=== PATIENT | female | born 1990 | race Caucasian/White ===

== ENCOUNTER 2022-12-27 20:35 | Outpatient (REF) | payer MEDICARE, MEDICAID, SELFPAY ==
[2023-01-03 21:07] LABS: Age Gdln ACOG Testing Note (.); HPV Aptima Positive (Negative); HPV Genotype 16 Negative (Negative); HPV Genotype 18,45 Negative (Negative); IGP, Aptima HPV, rfx 16/18,45 Note (.)
== END 2022-12-27 20:36 | disposition home or self-care (01) ==
LOC: LAB 20:35
PROVIDERS: PCP Family Medicine; Visit Provider Obstetrics & Gynecology
DX: Z01.419 Encounter for gynecological examination (general) (routine) without abnormal findings (principal)
CPT/HCPCS: 87624; G0145

== ENCOUNTER 2023-01-01 10:45 | Outpatient (RCR) | payer MEDICARE, MEDICAID, SELFPAY | END 2023-02-17 15:46 | disposition home or self-care (01) | LOC: PT 10:45 | PROVIDERS: PCP Family Medicine; Visit Provider Family Medicine | DX: M54.50 Low back pain, unspecified (principal); R26.81 Unsteadiness on feet | CPT/HCPCS: 97110; 97112; 97140; 97163; 97530 ==

== ENCOUNTER 2023-01-08 10:42 | Outpatient (RCR) | payer MEDICARE, MEDICAID, SELFPAY | END 2023-02-16 15:45 | disposition home or self-care (01) | LOC: PT 10:42 | PROVIDERS: PCP Family Medicine; Visit Provider Psychiatry & Neurology Neurology | DX: R42 Dizziness and giddiness (principal); M47.812 Spondylosis without myelopathy or radiculopathy, cervical region | CPT/HCPCS: 95992; 97110; 97112; 97140; 97163 ==

== ENCOUNTER 2023-12-21 10:34 | Outpatient (OUT) | payer MEDICARE, MEDICAID, SELFPAY ==
--- NOTE | 2023-12-21 10:37 | US_ITS ---
[address] [address] Patient Name: ELIE PENNINGTON MRN: [id number] date: 1990 Sex: F Assigned Patient Location: US Current Patient Location: US Accession/Order Number: [id number] Exam Date: 12/21/2023 10:40 Report Date: 12/21/2023 15:46 At the request of: GEOFFREY COTTO Procedure: US pelvis w/ transvaginal EXAMINATION: US pelvis w/ transvaginal HISTORY: Menorrhagia With Regular Cycle COMPARISON: No relevant comparison available. TECHNIQUE: Transabdominal and/or transvaginal sonographic examination was performed as indicated by examination type. FINDINGS: UTERUS: Normal size and appearance. Uterus size: 9.4 x 4.7 x 6 x 3 cm ENDOMETRIUM: Normal homogeneous appearance. Endometrial thickness: 10 mm RIGHT OVARY: Contains numerous small, similar size follicles located in a peripheral distribution. Duplex Doppler demonstrates normal waveform and flow; resistive index 0.4. Ovary size: 3.2 x 2.2 x 2.7 cm LEFT OVARY: Contains numerous small, similar size follicles located in a peripheral distribution. Duplex Doppler demonstrates normal waveform and flow; resistive index 0.4. Ovary size: 3.4 x 2.7 x 2.9 cm CUL-DE-SAC: Unremarkable. No significant free fluid. BLADDER: Unremarkable. OTHER: None. US/US pelvis w/ transvaginal IMPRESSION: 1. Unremarkable uterus and endometrium. 2. Numerous follicles within both ovaries; nonspecific but the appearance can be seen with polycystic ovarian syndrome. Electronically authenticated by: DONNA KUMAR Date: 12/21/2023 15:46
== END 2023-12-21 10:35 | disposition home or self-care (01) ==
LOC: US 10:34
PROVIDERS: PCP Family Medicine; Visit Provider Obstetrics & Gynecology
DX: N92.0 Excessive and frequent menstruation with regular cycle (principal)
CPT/HCPCS: 76830; 76856

== ENCOUNTER 2024-01-01 19:59 | Outpatient (REF) | payer MEDICARE, MEDICAID, SELFPAY ==
--- OUTSIDE RECORDS SUMMARY | 2024-01-01 20:04 | XMS_ITS | CCD ---
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 [address] ABSOLUTE NEUTROPHIL 4.2 X10E9/L Normal 1.5-6.6 [facility] Comment on above: Performed By: #### Danis SAMUELS, 1797-12, BMP, 3040-3, LIVR #### [facility] ([id number]) [address], [facility] [address] [place] [address] Basophils/100 WBC (Bld) 0.6 % Normal [facility] Comment on above: Performed By: #### Danis SAMUELS, 1797-12, BMP, 3040-3, LIVR #### [facility] ([id number]) [address], [address] [place] [address] Eosinophils (Bld) [#/Vol] 0.1 10*3/uL Normal 0.0-0.4 [facility] Comment on above: Performed By: #### Danis SAMUELS, 1797-12, BMP, 3040-3, LIVR #### [facility] ([id number]) [address], [facility] [address] [place] [address] Eosinophils/100 WBC (Bld) 2.0 % Normal [facility] Comment on above: Performed By: #### Danis SAMUELS, 1797-12, BMP, 3040-3, LIVR #### [facility] ([id number]) [address], [facility] [address] [place] [address] Erythrocyte distribution width (RBC) [Ratio] 12.1 % Normal 11.5-15.0 [facility] Comment on above: Performed By: #### Danis SAMUELS, 1797-12, BMP, 3040-3, LIVR #### [facility] ([id number]) [address], [address] [place] [address] Hematocrit (Bld) [Volume fraction] 39.5 % Normal 35-47 [facility] Comment on above: Performed By: #### Danis SAMUELS, 1797-12, BMP, 3040-3, LIVR #### [facility] ([id number]) [address], [address] [place] [address] Hemoglobin (Bld) [Mass/Vol] 13.7 g/dL Normal 11.7-15.5 [facility] Comment on above: Performed By: #### Danis SAMUELS, 1797-12, BMP, 3040-3, LIVR #### [facility] ([id number]) [address], [address] [place] [address] Lymphocytes (Bld) [#/Vol] 2.6 10*3/uL Normal 1.0-3.5 [facility] Comment on above: Performed By: #### Danis SAMUELS, 1797-12, BMP, 0-3, LIVR #### [facility] ([id number]) [address], [facility] [address] [place] [address] Lymphocytes/100 WBC (Bld) 35.6 % Normal [facility] Comment on above: Performed By: #### Danis SAMUELS, 1797-12, BMP, 3040-3, LIVR #### [facility] ([id number]) [address], [address] [place] [address] MCH (RBC) [Entitic mass] 29.7 pg Normal 27-34 [facility] Comment on above: Performed By: #### Danis SAMUELS, 1797-12, BMP, 3040-3, LIVR #### [facility] ([id number]) [address], [address] [place] [address] MCHC (RBC) [Mass/Vol] 34.7 g/dL Normal 32-36 [facility] Comment on above: Performed By: #### Danis SAMUELS, 1797-12, BMP, 3040-3, LIVR #### [facility] ([id number]) [address], [address] [place] [address] MCV (RBC) [Entitic vol] 86 fL Normal 80-100 [facility] Comment on above: Performed By: #### Danis SAMUELS, 1797-12, BMP, 3040-3, LIVR #### [facility] ([id number]) [address], [address] [place] [address] Monocytes (Bld) [#/Vol] 0.3 10*3/uL Normal 0-0.9 [facility] Comment on above: Performed By: #### Danis SAMUELS, 1797-12, BMP, 3040-3, LIVR #### [facility] ([id number]) [address], [address] [place] [address] Monocytes/100 WBC (Bld) 4.4 % Normal [facility] Comment on above: Performed By: #### Danis SAMUELS, 1797-12, BMP, 3040-3, LIVR #### [facility] ([id number]) [address], [address] [place] [address] Neutrophils/100 WBC (Bld) 57.4 % Normal [facility] Comment on above: Performed By: #### Danis SAMUELS, 1797-12, BMP, 3040-3, LIVR #### [facility] ([id number]) [address], [address] [place] [address] Platelet mean volume (Bld) [Entitic vol] 8.0 fL Normal 7-12 [facility] Comment on above: Performed By: #### Danis SAMUELS, 1797-12, BMP, 3040-3, LIVR #### [facility] ([id number]) [address], [address] [place] [address] Platelets (Bld) [#/Vol] 306 10*3/uL Normal 150-450 [facility] Comment on above: Performed By: #### Danis SAMUELS, 1797-12, BMP, 3040-3, LIVR #### [facility] ([id number]) [address], [address] [place] [address] RBC COUNT 4.62 X10E12/L Normal 3.80-5.20 [facility] Comment on above: Performed By: #### Danis BCA, 1797-12, BMP, 3040-3, LIVR #### [facility] ([id number]) [address], [address] [place] [address] WBC (Bld) [#/Vol] 7.3 10*3/uL Normal 4.0-11.0 [facility] Comment on above: Performed By: #### Danis SAMUELS, 1797-12, BMP, 3040-3, LIVR #### [facility] ([id number]) [address], [address] [place] [address] FREE T4on 12-19-2023 Free T4 [Mass/Vol] 1.14 ng/dL Normal 0.61-1.60 [facility] Comment on above: Performed By: #### Danis BCA, 1797-12, BMP, 3040-3, LIVR #### [facility] ([id number]) [address], [address] [place] [address] HCG.beta subunit IA 3rd IS Q non 12-19-2023 SERUM B HCG,3RD I.S. <5 Normal [facility] Comment on above: Result Comment: NEW REFERENCE RANGE WEEKS (SINCE LMP) MIU/mL 3 WEEKS 5 - 50 4 WEEKS 5 - 426 5 WEEKS 18 - 7,340 6 WEEKS 1,080 - 56,500 7-8 WEEKS 7,650 - 229,000 9-12 WEEKS 25,700 - 288,000 13-16 WEEKS 13,300 - 254,000 17-24 WEEKS 4,060 - 165,400 25-40 WEEKS 3,640 - 117,000 MALES AND NON- FEMALES - <5 MIU/mL This test has been FDA approved for use in only. Elevated levels are not necessarily diagnostic for trophoblastic or nontrophoblastic neoplasms. Performed By: #### C ABRIL, 1797-12, NISA, 3040-3, LIVR #### [facility] ([id number]) [address], [facility] [address] [place] [address] HGB A1C (GLYCO-HGB)on 2023 Glucose [Mass/Vol] 154 mg/dL Normal [facility] Comment on above: Performed By: ###Nikita Moscoso BCA, 1797-12, NISA, 0-3, LIVR #### [facility] ([id number]) [address] [address] [place] [address] HbA1c (Bld) [Mass fraction] 7.0 % High 4.4-5.6 [facility] Comment on above: Result Comment: NOTE ADA Guidelines Result HgbA1c Normal : less than 5.7 % Prediabetes : 5.7 % to 6.4 % Diabetes : > 6.4 % Use with caution in patients with abnormal hemoglobin variants as the half-life of red blood cells and in vivo glycation rates are affected. Performed By: #### C ABRIL, 1797-12, NISA, 0-3, LIVR #### [facility] ([id number]) [address], [address] [place] [address] PROTIME AND INRon 12-19-2023 INR Coag (PPP) [Relative time] 1.1 {INR} Normal 0.8-1.1 [facility] Comment on above: Performed By: #### Danis SAMUELS, 1797-12, NISA, 3040-3, LIVR #### [facility] ([id number]) [address], [address] [place] [address] PT Coag (PPP) [Time] 12.5 s Normal 9.8-13.2 [facility] Comment on above: Result Comment: NEW REFERENCE RANGE Performed By: #### Danis SAMUELS, 8-8, BMP, 3040-3, LIVR #### [facility] ([id number]) [address], [address] [place] [address] TSH Qnon 12-19-2023 TSH 1.08 uIU/mL Normal 0.49-4.67 [facility] Comment on above: Performed By: #### Danis SAMUELS, 1797-8, BMP, 3040-3, LIVR #### [facility] ([id number]) [address], [address] [place] [address] aPTT Coag (PPP) [Time]on aPTT Coag (Bld) [Time] 36 s Normal 26-37 [facility] Comment on above: Result Comment: NEW REFERENCE RANGE Performed By: #### Danis SAMUELS, 1797-8, BMP, 3040-3, LIVR #### [facility] ([id number]) [address], [address] [place] [address] HCG.beta subunit IA 3rd IS Q non 12-03-2023 SERUM B HCG,3RD I.S. <5 Normal [facility] Comment on above: Result Comment: NEW REFERENCE RANGE WEEKS (SINCE LMP) MIU/mL 3 WEEKS 5 - 50 4 WEEKS 5 - 426 5 WEEKS 18 - 7,340 6 WEEKS 1,080 - 56,500 7-8 WEEKS 7,650 - 229,000 9-12 WEEKS 25,700 - 288,000 13-16 WEEKS 13,300 - 254,000 17-24 WEEKS 4,060 - 165,400 25-40 WEEKS 3,640 - 117,000 MALES AND NON- FEMALES - <5 MIU/mL This test has been FDA approved for use in only. Elevated levels are not necessarily diagnostic for trophoblastic or nontrophoblastic neoplasms. Performed By: #### C BCA, 1798-8, BMP, 3040-3, LIVR #### [facility] ([id number]) [address], [address] [place] [address] PT - Assessmentson 4 PT - Assessments [id number] 031 [id number]#1.00T IFF Normal [facility] PT - Assessments [id number] 031 [id number]#1.00T IFF Normal [facility] Nonvisit Note - PTon 10-22-2 024 Nonvisit Note - PT 1100 Edilson Dunn just called and rescheduled to next . She said her ride canceled on her last minute today. Normal [facility] CBC AND AUTO DIFFon 10-19-19 24 ABSOLUTE BASOPHIL 0.1 X10E9/L Normal 0.0-0.2 [facility] Comment on above: Performed By: #### C BCA, CMP, 69092-2, THYR #### [facility] ([id number]) [address], [address] [place] [address] ABSOLUTE NEUTROPHIL 4.7 X10E9/L Normal 1.5-6.6 [facility] Comment on above: Performed By: #### C BCA, CMP, 30282-0, THYR #### [facility] ([id number]) [address], [address] [place] [address] Basophils/100 WBC (Bld) 0.8 % Normal [facility] Comment on above: Performed By: #### C BCA, CMP, 12729-7, THYR #### [facility] ([id number]) [address], [address] [place] [address] Eosinophils (Bld) [#/Vol] 0.2 10*3/uL Normal 0.0-0.4 [facility] Comment on above: Performed By: #### C KURTIS SAMUELS, 48314-2, THYR #### [facility] ([id number]) [address], [address] [place] [address] Eosinophils/100 WBC (Bld) 2.2 % Normal [facility] Comment on above: Performed By: #### C KURTIS SAMUELS, 57226-9, THYR #### [facility] ([id number]) [address], [facility] [address] [place] [address] Erythrocyte distribution width (RBC) [Ratio] 12.4 % Normal 11.5-15.0 [facility] Comment on above: Performed By: #### Danis SAMUELS CMP, 17722-1, THYR #### [facility] ([id number]) [address], [address] [place] [address] Hematocrit (Bld) [Volume fraction] 36.6 % Normal 35-47 [facility] Comment on above: Performed By: #### Danis SAMUELS CMP, 53441-9, THYR #### [facility] ([id number]) [address], [address] [place] [address] Hemoglobin (Bld) [Mass/Vol] 12.6 g/dL Normal 11.7-15.5 [facility] Comment on above: Performed By: #### Danis SAMUELS CMP, 08521-6, THYR #### [facility] ([id number]) [address], [address] [place] [address] Lymphocytes (Bld) [#/Vol] 2.7 10*3/uL Normal 1.0-3.5 [facility] Comment on above: Performed By: #### Danis SAMUELS CMP, 96354-6, THYR #### [facility] ([id number]) [address], [address] [place] [address] Lymphocytes/100 WBC (Bld) 33.4 % Normal [facility] Comment on above: Performed By: #### C KURTIS SAMUELS, 23344-1, THYR #### [facility] ([id number]) [address], [facility] [address] [place] [address] MCH (RBC) [Entitic mass] 29.3 pg Normal 27-34 [facility] Comment on above: Performed By: #### C ABRIL CMP, 84932-6, THYR #### [facility] ([id number]) [address], [facility] [address] [place] [address] MCHC (RBC) [Mass/Vol] 34.3 g/dL Normal 32-36 [facility] Comment on above: Performed By: #### C ABRIL CMP, 36482-6, THYR #### [facility] ([id number]) [address], [facility] [address] [place] [address] MCV (RBC) [Entitic vol] 85 fL Normal 80-100 [facility] Comment on above: Performed By: #### Danis SAMUELS CMP, 17810-8, THYR #### [facility] ([id number]) [address], [address] [place] [address] Monocytes (Bld) [#/Vol] 0.5 10*3/uL Normal 0-0.9 [facility] Comment on above: Performed By: #### Danis SAMUELS CMP, 32700-6, THYR #### [facility] ([id number]) [address], [facility] [address] [place] [address] Monocytes/100 WBC (Bld) 5.7 % Normal [facility] Comment on above: Performed By: #### Danis BCA, CMP, 89162-5, THYR #### [facility] ([id number]) [address], [address] [place] [address] Neutrophils/100 WBC (Bld) 57.9 % Normal [facility] Comment on above: Performed By: #### C BCA, CMP, 13925-1, THYR #### [facility] ([id number]) [address], [address] [place] [address] Platelet mean volume (Bld) [Entitic vol] 8.1 fL Normal 7-12 [facility] Comment on above: Performed By: #### C BCA, CMP, 67456-8, THYR #### [facility] ([id number]) [address], [address] [place] [address] Platelets (Bld) [#/Vol] 338 10*3/uL Normal 150-450 [facility] Comment on above: Performed By: #### C BCA, CMP, 34827-0, THYR #### [facility] ([id number]) [address], [address] [place] [address] RBC COUNT 4.30 X10E12/L Normal 3.80-5.20 [facility] Comment on above: Performed By: #### C BCA, CMP, 32791-5, THYR #### [facility] ([id number]) [address] [address] [place] [address] WBC (Bld) [#/Vol] 8.0 10*3/uL Normal 4.0-11.0 [facility] Comment on above: Performed By: #### C BCA, CMP, 81106-5, THYR #### [facility] ([id number]) [address], [address] [place] [address] COMPREHENSIVE METABOLIC PANE Nickolas 10-19-2023 Albumin [Mass/Vol] 4.2 g/dL Normal 3.2-5.3 [facility] Comment on above: Performed By: #### C BCA, CMP, 68422-4, THYR #### [facility] ([id number]) [address], [address] [place] [address] ALP [Catalytic activity/Vol] 41 U/L Normal 39-130 [facility] Comment on above: Performed By: #### C ABRIL CMP, 42218-6, THYR #### [facility] ([id number]) [address], [address] [place] [address] ALT [Catalytic activity/Vol] 18 U/L Normal 0-31 [facility] Comment on above: Performed By: #### C ABRIL, CMP, 06102-5, THYR #### [facility] ([id number]) [address], [address] [place] [address] Anion gap [Moles/Vol] 10 mmol/L Normal 5-15 [facility] Comment on above: Performed By: #### C ABRIL, CMP, 14314-0, THYR #### [facility] ([id number]) [address], [address] [place] [address] AST [Catalytic activity/Vol] 15 U/L Normal 0-41 [facility] Comment on above: Performed By: #### C ABRIL, CMP, 01165-4, THYR #### [facility] ([id number]) [address], [address] [place] [address] Bilirubin [Mass/Vol] 0.4 mg/dL Normal 0.3-1.2 [facility] Comment on above: Performed By: #### C BCA, CMP, 10728-7, THYR #### [facility] ([id number]) [address], [address] [place] [address] Calcium [Mass/Vol] 9.1 mg/dL Normal 8.5-10.5 [facility] Comment on above: Performed By: #### C BCA, CMP, 84666-8, THYR #### [facility] ([id number]) [address], [address] [place] [address] Chloride [Moles/Vol] 103 mmol/L Normal 98-109 [facility] Comment on above: Performed By: #### C KURTIS SAMUELS, 31046-4, THYR #### [facility] ([id number]) [address], [address] [place] [address] CO2 [Moles/Vol] 25 mmol/L Normal 22-32 [facility] Comment on above: Performed By: #### C ABRIL CMP, 94829-0, THYR #### [facility] ([id number]) [address], [address] [place] [address] Creatinine [Mass/Vol] 0.79 mg/dL Normal 0.40-1.00 [facility] Comment on above: Result Comment: METH OD TRACEABLE TO IDMS STANDARD Performed By: #### C KURTIS SAMUELS, 61738-2, THYR #### [facility] ([id number]) [address], [address] [place] [address] eGFR (CKD-EPI) NON-RACE DEPENDENT >90 Normal >59 [facility] Comment on above: Result Comment: Reported eGFR is based on the CKD-EPI 2020 equation that does not use a race coefficient. Performed By: #### C KURTIS SAMUELS, 84815-0, THYR #### [facility] ([id number]) [address], [address] [place] [address] Glucose [Mass/Vol] 193 mg/dL High 65-99 [facility] Comment on above: Performed By: #### C BCA, CMP, 44160-5, THYR #### [facility] ([id number]) [address], [address] [place] [address] Potassium [Moles/Vol] 3.7 mmol/L Normal 3.5-5.0 [facility] Comment on above: Performed By: #### C BCA, CMP, 24047-1, THYR #### [facility] ([id number]) [address], [address] [place] [address] Protein [Mass/Vol] 6.8 g/dL Normal 6.0-8.0 [facility] Comment on above: Performed By: #### C KURTIS SAMUELS, 71533-3, THYR #### [facility] ([id number]) [address], [facility] [address] [place] [address] Sodium [Moles/Vol] 138 mmol/L Normal 134-146 [facility] Comment on above: Performed By: #### C ABRIL, KURTIS, 35695-0, THYR #### [facility] ([id number]) [address], [facility] [address] [place] [address] Urea nitrogen [Mass/Vol] 11 mg/dL Normal 5-23 [facility] Comment on above: Performed By: #### Danis SAMUELS CMP, 55524-7, THYR #### [facility] ([id number]) [address], [address] [address] Lipid 1996 panelon 4 Cholesterol [Mass/Vol] 224 mg/dL High 150-200 [facility] Comment on above: Performed By: #### Danis SAMUELS, KURTIS, 34562-8, THYR #### [facility] ([id number]) [address], [facility] [address] [place] [address] Cholesterol in HDL [Mass/Vol] 44 mg/dL Normal >39 [facility] Comment on above: Result Comment: HDL <40 mg/dL - High Risk HDL > or = 40mg/dL- Desirable HDL >60 mg/dL - Negative Risk Performed By: #### C ABRIL, CMP, 43385-8, THYR #### [facility] ([id number]) [address], [facility] [address] [place] [address] Cholesterol in LDL [Mass/Vol] 132 mg/dL High <130 [facility] Comment on above: Result Comment: LDL <100 mg/dL - Desirable LDL >160 mg/dL - High Risk Performed By: #### C BCA, CMP, 74186-9, THYR #### [facility] ([id number]) [address] [place] [address] Cholesterol in VLDL [Mass/Vol] 48 mg/dL High 0-30 [facility] Comment on above: Performed By: #### C BCA, CMP, 18373-2, THYR #### [facility] ([id number]) [address], [facility] [address] [place] [address] CHOLESTEROL:HDL 5.1 High 1.0-5.0 [facility] Comment on above: Performed By: #### C BCA, CMP, 51605-0, THYR #### [facility] ([id number]) [address] [place] [address] Triglyceride [Mass/Vol] 241 mg/dL High 27-150 [facility] Comment on above: Performed By: #### C BCA, CMP, 20864-6, THYR #### [facility] ([id number]) [address] [place] [address] MICROALBUMIN - ALBUMIN:CREAT ININE URINE RATIOon 10-18-2023 ALB/CREAT RATIO 4.9 mg/g creat Normal 0.0-30.0 [facility] Comment on above: Performed By: #### C BCA, 1798-8, BMP, 3040-3, LIVR #### [facility] ([id number]) [address], [address] [place] [address] Albumin DL <= 20 mg/L (U) [Mass/Vol] 0.9 mg/dL Normal 0.0-1.9 [facility] Comment on above: Performed By: #### C BCA, 1798-8, BMP, 3040-3, LIVR #### [facility] ([id number]) [address], [address] [place] [address] URINE CREAT 183.24 mg/dL Normal [facility] Comment on above: Performed By: #### Danis BCA, 1798-8, BMP, 3040-3, LIVR #### [facility] ([id number]) [address], [address] [place] [address] THYROID PROFILEon 10-19-2023 Free T4 [Mass/Vol] 0.95 ng/dL Normal 0.61-1.60 [facility] Comment on above: Performed By: #### Danis SAMUELS, CMP, 43220-9, THYR #### [facility] ([id number]) [address], [address] [place] [address] TSH 0.84 uIU/mL Normal 0.49-4.67 [facility] Comment on above: Performed By: #### Danis SAMUELS, CMP, 16319-6, THYR #### [facility] ([id number]) [address], [address] [place] [address] Nonvisit Note - PTon 024 Nonvisit Note - PT Patient cancelled today's PT session per the auto remind system. [facility] PT - Home Exercise Programon 10-11-2023 PT - Home Exercise Program [id number] IFF [facility] PT - Assessmentson PT - Assessments [id number]#1.00 TIFF [facility] Video Visit - Telehealtho n 10-01-2023 Video Visit - Telehealth Start Time 3:15 pm Stop Time 4:00 pm Chief Complaint Did an ADHD screener and made a referral for ADOS testing. Calling PCP upon completion. Son is dx with ASD and Aida Displays both ADHD and ASD. Very common to have both. Will continue to monitor. Self Report Scales Assess for ADHD, as there has been sx displayed since ongoing therapy. Scored high on screener. Patient Reported Issues Struggles with inability to process and focus, often has a hard time remembering information and has been struggling in school. Son is dx with ASD and often both tend to go hand in hand. Asked for referral from PCP for ADOS testing for client. CSSRS Risk Assessment Currently not suicidal and homicidal at this time. Mental Status Exam Alert and Oriented X4 Diagnosis/Assessment/Tr eatment Plan 1. ADHD (attention deficit hyperactivity disorder) (F90.9: Attention-deficit hyperactivity disorder, unspecified type) Psychotherapy Summary Client and Clinician started this session of with a brief check in via telehealth. Checked in too see how Aida is doing. During this session family hx was further assessed and given upon ASD being genetic just like ADHD. Upon behaviors assessed and explored. ADHD screener was implored. Behaviors of Client also demonstrate ASD sx. Son is dx with ASD as well. Daughter has Cerebral Palsy and may have an overlap of ASD. All neurological brain disorders. Called PCP and requested referral for ADOS testing. Will continue on Therapist Intervention DBT therapy and distress skills , Psychoeducation on ADHD, Dr Laxmi Peralta Not Gone Yet , and coordination of care with PCP. Referral for ADOS testing. Patient Response Aida was receptive and wanted referral. Patient Assignment To continue to work on distress tolerance skills. Assessment and Plan Will continue on as needed. Follow-up No qualifying data available Problem List/Past Medical History Ongoing ADHD (attention deficit hyperactivity disorder) Adjustment disorder with mixed anxiety and depressed mood Anxiety Asthma Complex posttraumatic stress disorder Diabetes Fibromyalgia Hyperlipidemia Hypertension Hypothyroidism Incomplete bladder emptying Nocturia Yanez disease Straining on urination Suprapubic pain Urinary frequency Historical No qualifying data Procedure/Surgical History Caesarean section, Colonoscopy, Tonsillectomy. Medications No active medications Allergies Keflex (Unknown) Macrobid (Anxiety) ciprofloxacin (Nausea) predniSONE (Hyperglycemia) Family History Diabetes mellitus type 2: Mother and Father. Heart failure: Father. Hypertension: Mother. Primary malignant neoplasm of female breast: Mother. Normal [facility] Comment on above: Result Comment: Elec tronically Signed By: Zahraa Iqbal\.br\Date and Time Signed: 10/01/23 16:26 EDT PT - [place] 09-11-2023 PT - Orders [id number]#1.00 TIFF [facility] PT - Assessmentson PT - Assessments [id number]#1.00 TIFF [facility] PT - Assessments [id number]#1.00 TIFF [facility] PT - Consentson 09-05-2023 PT - Consents [id number]#1.00 TIFF [facility] PT - [place] 09-05-2023 PT - Orders [id number]#1.00 TIFF [facility] Consent for Treatmenton 08-13 Consent for Treatment [id number]#1.00T IFF [facility] Insurance Correspondenceon 0 09-04-2023 Insurance Correspondence [id number]#1.0 0TIFF [facility] Nonvisit Note - PTon 024 Nonvisit Note - PT chart reviewed with eval prepped for scheduled eval. KK [facility] PT - [place] 08-28-2023 PT - Orders [id number]#1.00 TIFF [facility] Office Visiton 08-15-2023 Follow-up visit [id number] Aida Dunn 1990 F Date Provider Department Center 08/15/2023 Khris-FABIOLA TODD [facility] CARD [facility] HeartVAS No family history on file Level of Service:51365 [place] OFFICE/OUTPATIENT ESTABLISHED LOW MDM 20 MIN Reason for Visit and Comments: POTs [Other] Normal [facility] POCT Hemoglobin A1con 2023 HbA1c (Bld) [Mass fraction] 6.7 g/dL 4 - 7 g/dL [facility] PT - Assessmentson 4 PT - Assessments [id number]#1.00T IFF [facility] PT - Assessments [id number]#1.00T IFF [facility] PT - Home Exercise Programon 07-03-2023 PT - Home Exercise Program [id number]#1.00 TIFF [facility] XR CERVICAL SPINE AP/LAT/FLE X/EXTon 07-02-2023 XR CERVICAL SPINE AP/LAT/FLEX/EXT FINDINGS: Cervical vertebral bodies are normal in height and alignment on flexion, extension, and neutral position. No fracture, dislocation, bone lesion. No prevertebral soft tissue swelling. Loss cervical lordosis IMPRESSION: No fracture. No malalignment. Loss of cervical lordosis may be secondary to patient positioning versus muscle spasm. ELECTRONICALLY SIGNED BY: Dorian Grossman MD Normal Not Available ST - Assessmentson 4 ST - Assessments [id number]#1.00T IFF [facility] PT - Assessmentson 4 PT - Assessments [id number]#1.00T IFF [facility] PT - Assessments [id number]#1.00T IFF [facility] PT - Home Exercise Programon 06-19-2023 PT - Home Exercise Program [id number]#1.00T IFF [facility] AMYLASEon 06-11-2023 Amylase [Catalytic activity/Vol] 24 U/L Low 28-100 [facility] Comment on above: Performed By: #### C BCA, 1798-8, BMP, 3040-3, LIVR #### [facility] ([id number]) [address], [address] [place] [address] BASIC METABOLIC PANLon 06-11 Anion gap [Moles/Vol] 6 mmol/L Normal 5-15 [facility] Comment on above: Performed By: #### C BCA, 1797-8, BMP, 3040-3, LIVR #### [facility] ([id number]) [address], [address] [place] [address] Calcium [Mass/Vol] 9.2 mg/dL Normal 8.5-10.5 [facility] Comment on above: Performed By: #### C BCA, 1797-8, BMP, 3040-3, LIVR #### [facility] ([id number]) [address], [address] [place] [address] Chloride [Moles/Vol] 104 mmol/L Normal 98-109 [facility] Comment on above: Performed By: #### C BCA, 1797-12, BMP, 3040-3, LIVR #### [facility] ([id number]) [address], [address] [place] [address] CO2 [Moles/Vol] 27 mmol/L Normal 22-32 [facility] Comment on above: Performed By: #### C BCA, 1797-12, BMP, 3040-3, LIVR #### [facility] ([id number]) [address], [address] [place] [address] Creatinine [Mass/Vol] 0.83 mg/dL Normal 0.40-1.00 [facility] Comment on above: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 component) are present. Performed at: WB Performed By: #### 4 [id number] #### [facility] [address] [place] [address] Dr. Tennille Gibbs HCG-BETA SUBUNIT QUANTon hCG,Beta Subunit,Qnt,Serum <1 Normal [facility] Comment on above: Result Comment: Fema le (Non-) 0 - 5 (Postmenopausal) 0 - 8 . Female () Weeks of Gestation 3 6 - 71 4 10 - 750 5 583 - 7073 6 813 - 49964 7 [phone] [phone] 8 07334 -925420 9 39686 -704068 10 59461 -265670 12 83804 -214740 14 78715 - 85087 15 71663 - 92215 16 0702 - 61609 17 0929 - 78507 18 4446 - 80253 Jatin ECLIA methodology Performed By: #### C BC #### [facility] [address] [place] [address] Dr. Tennille Gibbs CBC AUTO DIFFon 12-12-2021 BASO # 0.1 103/ul Normal 0.0-0.1 [facility] Comment on above: Performed By: #### C BC #### [facility] [address] [place] [address] Dr. Tennille Gibbs Basophils/100 WBC (Bld) 1.1 % Normal 0.2-2.0 [facility] Comment on above: Performed By: #### C BC #### [facility] [address] [place] [address] Dr. Tennille Gibbs EO # 0.3 103/ul Normal 0.0-0.[address] [facility] Comment on above: Performed By: #### C BC #### [facility] [address] [place] [address] Dr. Tennille Gibbs Eosinophils/100 WBC (Bld) 3.7 % Normal 0.9-7.0 [facility] Comment on above: Performed By: #### C BC #### [facility] [address] [place] [address] Dr. Tennille Gibbs Erythrocyte distribution width (RBC) [Ratio] 11.3 % Normal 11.0-15.0 [facility] Comment on above: Performed By: #### C BC #### [facility] [address] [place] [address] Dr. Tennille Gibbs Hematocrit (Bld) [Volume fraction] 37.0 % Normal 36.0-48.0 [facility] Comment on above: Performed By: #### C BC #### [facility] [address] [place] [address] Dr. Tennille Gibbs Hemoglobin (Bld) [Mass/Vol] 12.7 g/dL Normal 12.0-16.0 [facility] Comment on above: Performed By: #### C BC #### [facility] [address] [place] [address] Dr. Tennille Gibbs IG # 0.01 10e3/ul Normal 0.00-0.03 [facility] Comment on above: Performed By: #### C BC #### [facility] [address] [place] [address] Dr. Tennille Gibbs IG % 0.1 % Normal 0.0-0.5 [facility] Comment on above: Performed By: #### C BC #### [facility] [address] [place] [address] Dr. Tennille Gibbs LYMPH # 2.3 103/ul Normal 1.2-3.8 [facility] Comment on above: Performed By: #### C BC #### [facility] [address] [place] [address] Dr. Tennille Gibbs Lymphocytes/100 WBC (Bld) 31.2 % Normal 20.5-60.0 [facility] Comment on above: Performed By: #### C BC #### [facility] [address] [place] [address] Dr. Tennille Gibbs MANUAL DIFF REQ NO Normal [facility] Comment on above: Performed By: #### C BC #### [facility] [address] [place] [address] Dr. Tennille Gibbs MCH (RBC) [Entitic mass] 29.4 pg Normal 26.7-34.0 [facility] Comment on above: Performed By: #### C BC #### [facility] [address] [address] [address] Tennille Gibbs MCHC (RBC) [Mass/Vol] 34.3 g/dL Normal 29.9-35.2 [facility] Comment on above: Performed By: #### C BC #### [facility] [address] [address] [address] Tennille Gibbs MCV (RBC) [Entitic vol] 85.6 fL Normal 81.0-99.0 [facility] Comment on above: Performed By: #### C BC #### [facility] [address] [place] [address] Dr. Tennille Gibbs MONO # 0.5 103/ul Normal 0.3-0.8 [facility] Comment on above: Performed By: #### C BC #### [facility] [address] [place] [address] Dr. Tennille Gibbs Monocytes/100 WBC (Bld) 6.2 % Normal 1.7-12.0 [facility] Comment on above: Performed By: #### C BC #### [facility] [address] [place] [address] Dr. Tennille Gibbs NEUT # 4.2 103/ul Normal 1.4-6.5 [facility] Comment on above: Performed By: #### C BC #### [facility] [address] [place] [address] Dr. Tennille Gibbs Neutrophils/100 WBC (Bld) 57.7 % Normal 43.0-75.[address] [facility] Comment on above: Performed By: #### C BC #### [facility] [address] [place] [address] Dr. Tennille Gibbs Platelet mean volume (Bld) [Entitic vol] 9.3 fL Critically low 9.5-13.5 [facility] Comment on above: Performed By: #### C BC #### [facility] [address] [place] [address] Dr. Tennille Gibbs PLT 283 103/ul Normal 150-[address] [facility] Comment on above: Performed By: #### C BC #### [facility] [address] [place] [address] Dr. Tennille Gibbs RBC 4.32 106/ul Normal 4.20-5.40 [facility] Comment on above: Performed By: #### C BC #### [facility] [address] [place] [address] Dr. Tennille Gibbs WBC 7.2 103/ul Normal 4.0-11.0 [facility] Comment on above: Performed By: #### C BC #### [facility] [address] [place] [address] Dr. Tennille Gibbs FREE T4on 12-12-2021 Free T4 [Mass/Vol] 1.00 ng/dL Normal 0.76-1.46 [facility] Comment on above: Performed By: #### F T4 #### [facility] [address] [place] [address] Dr. Tennille Gibbs PROTIMEon 12-12-2021 INR Coag (PPP) [Relative time] 0.99 {INR} Normal [facility] Comment on above: Performed By: #### P TT, PT #### [facility] [address] [place] [address] Dr. Tennille Gibbs INR GUIDELINES SEE BELOW Normal [facility] Comment on above: Result Comment: ARASELI RED INR: 2.0 - 3.0 CONDITIONS NOT LISTED BELOW 2.5 - 3.5 FOR PROSTHETIC HEART VALVE REPLACEMENT 2.5 - 3.5 RECURRENT THROMBOSIS Performed By: #### P TT, PT #### [facility] [address] [place] [address] Dr. Tennille Gibbs PT Coag (PPP) [Time] 10.7 s Normal 9.0-11.[address] [facility] Comment on above: Performed By: #### P TT, PT #### [facility] [address] [place] [address] Dr. Tennille Gibbs PTTon 12-12-2021 aPTT Coag (Bld) [Time] 28.2 s Normal 22.3-36.[address] [facility] Comment on above: Performed By: #### C BC #### [facility] [address] [address] [address] Tennille Gibbs TSHon 12-12-2021 TSH 0.453 uIU/mL Normal 0.358-3.740 [facility] Comment on above: Performed By: #### T SH #### [facility] [address] [address] [address] Tennille Gibbs COVID Quick Testingon 2021 Result Positive [facility] Other US PELVIS AND TRANSVAGon US PELVIS AND TRANSVAG EXAMINATION: US PELVIS AND TRANSVAG HISTORY: Pelvic and perineal pain ; intermittent midline pelvic pain for 2 months; no menstrual period since giving 3 months ago COMPARISON: No relevant comparison available. TECHNIQUE: Transabdominal and transvaginal sonographic examination. FINDINGS: UTERUS: Normal size and appearance. Uterus size: 9.1 x 6.5 x 4.8 cm ENDOMETRIUM: Contains 2 small calcifications, likely dystrophic. Otherwise normal homogeneous appearance. Endometrial thickness: 9 mm RIGHT OVARY: Contains numerous small similar size follicles. Duplex Doppler demonstrates normal waveform and flow; resistive index 0.28. Ovary size: 3.4 x 3.0 x 2.6 cm LEFT OVARY: Contains numerous small similar size follicles. Duplex Doppler demonstrates normal waveform and flow; resistive index 0.44. Ovary size: 3.7 x 3.1 x 2.6 cm CUL-DE-SAC: Unremarkable. No significant free fluid. BLADDER: Unremarkable. OTHER: None. IMPRESSION: 1. No abnormal findings of the endometrium; 9 mm in thickness. 2. Both ovaries contain numerous small similar size follicles; nonspecific but can be seen with polycystic ovarian syndrome. Electronically authenticated by: DONNA KUMAR Date: 2021-05-27 14:50 Normal [facility] CHLAMYDIA/GONOCOCCUS HAIM (SW AB/URINE/PAPon 05-26-2021 Chlamydia trachomatis, HAIM Negative Normal Negative [facility] Comment on above: Performed By: #### C T/NGNA #### [facility] [address] [address] [address] Tennille Gibbs Neisseria gonorrhoeae, HAIM Negative Normal Negative [facility] Comment on above: Performed By: #### C T/NGNA #### [facility] [address] [address] [address] Tennille Gibbs VAGINITIS/VAGINOSIS DNA PROB Ecd 05-25-2021 Genesis species Negative Normal Negative [facility] Comment on above: Performed By: #### V AGINT #### [facility] [address] [address] [address] Tennille Gibbs Gardnerella vaginalis Negative Normal Negative [facility] Comment on above: Performed By: #### V AGINT #### [facility] [address] [address] [address] Tennille Gibbs Trichomonas vaginalis Negative Normal Negative [facility] Comment on above: Performed By: #### V AGINT #### [facility] [address] [address] [address] Tennille Gibbs FT4on 01-14-2020 Free T4 [Mass/Vol] 1.38 ng/dL Normal 0.79-2.35 [facility] Comment on above: Performed By: #### 4 500, 4520 #### [facility] Unless Otherwise Noted [address] [place] [address] / [facility] #4724/CLIA # [id number] TSHon 01-14-2020 TSH Qn 1.16 uIU/ml Normal 0.47-4.68 [facility] Comment on above: Performed By: #### 4 500, 4520 #### [facility] Unless Otherwise Noted [address] [address] / [facility] #4724/CLIA # [id number] Rg 05-16-2019 ALT [Catalytic activity/Vol] 32.0 U/L Normal 13.0-69.0 [facility] Comment on above: Performed By: #### 1 005, 1075, 1380 #### [facility] Unless Otherwise Noted [address] [address] / [facility] #4724/CLIA # [id number] CKon 05-16-2019 CK [Catalytic activity/Vol] 293.0 U/L High 30.0-135.0 [facility] Comment on above: Performed By: #### 1 005, 1075, 1380 #### [facility] Unless Otherwise Noted [address] [address] / [facility] #4724/CLIA # [id number] Lipidson 05-16-2019 Cholesterol [Mass/Vol] 213.0 mg/dL High 0.0-199.0 [facility] Comment on above: Performed By: #### 1 005, 1075, 1380 #### [facility] Unless Otherwise Noted [address] [address] / [facility] #4724/CLIA # [id number] Cholesterol in HDL [Mass/Vol] 48.0 mg/dL Normal 40.0-60.0 [facility] Comment on above: Performed By: #### 1 005, 1075, 1380 #### [facility] Unless Otherwise Noted [address] [address] / [facility] #4724/CLIA # [id number] Cholesterol in LDL [Mass/Vol] 132.6 mg/dL High 0.0-100.0 [facility] Comment on above: Performed By: #### 1 005, 1075, 1380 #### [facility] Unless Otherwise Noted [address] [address] / [facility] #4724/CLIA # [id number] Cholesterol in VLDL [Mass/Vol] 32.4 mg/dL Normal [facility] Comment on above: Performed By: #### 1 005, 1075, 1380 #### [facility] Unless Otherwise Noted [address] [address] / [facility] #4724/CLIA # [id number] Cholesterol.total/Ch olesterol in HDL [Mass ratio] 4.4 {ratio} Normal [facility] Comment on above: Performed By: #### 1 005, 1075, 1380 #### [facility] Unless Otherwise Noted [address] [address] / [facility] #4724/CLIA # [id number] Triglyceride [Mass/Vol] 162.0 mg/dL High 0.0-150.0 [facility] Comment on above: Performed By: #### 1 005, 1075, 1380 #### [facility] Unless Otherwise Noted [address] [address] / [facility] #4724/CLIA # [id number] Neurology Office/Clinic Note on 02-20-2018 Neurology Office/Clinic Note Chief Complaint Headache follow up History of Present Illness Patient is very pleasant 27-year-old woman who came for a follow-up appointment regarding her headaches which have been diagnosed as migraines with aura in the past. She was lastseen by my former colleague Dr. Robledo on 08/02/2017 for the same reason. At that time she was and she was told to use Tylenol for her headaches. Today, she reported that her baby is born at 27 weeks and is currently in NICU. With regards to headaches, she reported that the migraine headaches are gone. Now she gets mild pressure-like and sometimes pinprick-like sensations in her head which gets relieved with ice packs. She is not taking any medication for her headaches, both vkih-pak-sfcanui as well as prescription. Patient denied double vision, blurry vision, bright spots in the vision field, dark spots in the vision rawls, zigzag lines in the vision field, photophobia/phonophobia /nausea/vomiting, problems identifying colors/hue, pain behind the eyeballs, pain with the movement of the eyeballs, numbness over the face, episodes of facial droop, loss of sensation of smell, loss of sensation of taste, swelling of one side of the face, droopy eyelids, redness in the eyes, excessive tears coming out of the eyes, nasal stuffiness, fatigue with minimal exercise, weakness of any limb, numbness/tingling of any limb, gait or balance issues, falls or near falls, shooting electric sensation like pain from neck down her spine, shooting electric-like pain from neck or low back into any of her limbs, change in handwriting, involuntary movement of any of the limbs, recent change in bowel or bladder habits, episodes of loss of consciousness or altered sensorium, seeing things that other people don't, hearing things which other people don't, change in personality especially being over friendly with strangers or making inappropriate comments, fever, rash, change in skin/nails/hair/voice. She did report sleep disturbance after the delivery of her baby and thinks that this might be the reason for her current headaches. Overall she was very satisfied with her headache control and denies any questions or concerns. Review of Systems Constitutional: [No fevers, chills, sweats] Eye: [No recent visual problems] ENMT: [No ear pain, nasal congestion, sore throat] Respiratory: [No shortness of breath, cough] Cardiovascular: [No Chest pain, palpitations, syncope] Gastrointestinal: [No nausea, vomiting, diarrhea] Genitourinary: [No hematuria] Garret/Lymph: [Negative for bruising tendency, swollen lymph glands] Endocrine: [Negative for excessive thirst, excessive hunger] Musculoskeletal: [No back pain, neck pain, joint pain, muscle pain, decreased range of motion] Integumentary: [No rash, pruritus, abrasions] Neurologic: [Alert & oriented X 4] Psychiatric: [No anxiety, depression] Physical Exam Vitals & Measurements BP: 112/70 HT: 165 cm WT: 87.08 kg BMI: 31.99 Additional Vitals Body Mass Index Measured: 31.99 kg/m2 BP Position/Location: Sitting, Left arm Peripheral Pulse Rate: 80 bpm EXAM General: Alert and oriented, well nourished, no acute distress Psychiatric: Cooperative, appropriate mood and affect NEURO EXAM: Mental status: Patient is awake alert oriented to person place time month and year. No aphasia or dysarthria. Cranial nerves: Both pupils equal round and reactive to light, extra ocular movements intact, facial expression symmetric, tongue and uvula central, shoulder shrug and sternocleidomastoid strength 5 out of 5. Motor: 5 out of 5 throughout, No loss of muscle mass, rigidity or involuntary/abnormal movement. Sensation: Intact to light touch, throughout. Romberg not present DTR: 2+ throughout and 1+ at bilateral ankles. Coordination: Normal czdpul-[id number] testing. No past pointing or intention tremor. Gait: Patient is able to walk unassisted. The examination is essentially unchanged from the last visit. Assessment/Plan 1. Chronic migraine without aura No further migraine episodes since and her . Baby doing well in NICU. She was told to use fiic-zro-lwyrdpv Tylenol or ibuprofen for her current headaches if they don't get better with ice packs. No prescription medication needs to be given to her and given with improvement in her headaches. Neurological examination continues to be nonfocal and unremarkable and unchanged from the past visits. Patient was provided. Follow-up scheduled in one year. Patient voiced understanding of the assessment and plan and agreed to follow through. All questions answered to patient's satisfaction. Patient has our clinic number and can call us any time with any questions or concerns. Thank you for this interesting consultation. Physician Comments I spent 15 minutes with the patient [id number]-[id number], and 60% of that time was spent educating the patient/family on diagnosis, prognosis, and treatment options as documented above. I spent another 10 minutes reviewing medical records and additional 10 minutes completing documentation. This chart was created with voice-recognition and may contain sander hand errors or nonsense words. Problem List/Past Medical History Ongoing Anxiety Chronic migraine without aura Colitis Diabetes Fatigue Fibromyalgia Hypercholesterolemia Hypertension Hypothyroid IBS - Irritable bowel syndrome Joint stiffness PCOS - Polycystic ovarian syndrome Periodic limb movement disorder Sleep apnea Tachycardia Tremor Historical No qualifying data Procedure/Surgical History Section (01/12/2018), Bladder Extension, REPAIR OF NASAL SEPTUM, Tonsillectomy. Medications CeleXA 10 mg oral tablet, 5 mg, 0.5 tabs, Oral, Daily cetirizine, 10 mg, Oral, Daily, Not taking Cymbalta 20 mg oral delayed release capsule, 2 tabs, Daily, Not taking Flonase 50 mcg/inh nasal spray, 1 sprays, Nasal, qAM, Not taking HumaLOG 100 units/mL subcutaneous solution, 10 units, Subcutaneous, TID, Not taking labetalol 200 mg oral tablet, 200 mg, 1 tabs, Oral, BID Levemir 100 units/mL subcutaneous solution, 10 units, Subcutaneous, HS (at bedtime), Not taking levothyroxine 50 mcg (0.05 mg) oral capsule, 50 mcg, 1 caps, Oral, Daily meclizine 25 mg oral tablet, 25 mg, 1 tabs, Oral, TID, PRN, Not taking Allergies Cipro (Nausea) Steroid (Unknown) Social History Alcohol Never Nutrition/Health Caffeine intake amount: 1 can of pop a day . Substance Abuse Denies All Tobacco Never smoker Family History ALS (amyotrophic lateral sclerosis): Aunt. Cancer: Mother. Diabetes mellitus: Mother and Father. Hypertension: Mother. Electronically signed by ___ Travis Smith MD 02/20/18 10:04 EDT Normal [facility] ED Noteon 12-07-2016 HIM IP Note OR [facility] ED Provider Noteon 7 HIM IP Note OR [facility] Vital Signs Date Time Vital Sign Value Performing Clinician Facility 07-17-2023 09:070500 Body height 165.1 cm Renetta Cabrera MD Work Phone: [facility] 07-17-2023 09:07-0500 Body mass index (BMI) [Ratio] 31.12 kg/m2 Renetta Cabrera MD Work Phone: [facility] 07-17-2023 09:07-0500 Body weight 84.82 kg Renetta Cabrera MD Work Phone: [facility] 07-17-2023 09:07-0500 Diastolic blood pressure 79 mm[Hg] Renetta Cabrera MD Work Phone: [facility] 07-17-2023 09:07-0500 Heart rate 85 /min Renetta Cabrera MD Work Phone: [facility] 07-17-2023 09:07-0500 Systolic blood pressure 129 mm[Hg] Renetta Cabrera MD Work Phone: [facility] 07-11-2023 12:49-0500 Body height 165.1 cm Amanda Verhoff PA-C Work Phone: [facility] 07-11-2023 12:49-0500 Body mass index (BMI) [Ratio] 31.28 kg/m2 Amanda Verhoff PA-C Work Phone: [facility] 07-11-2023 12:49-0500 Body weight 85.28 kg Amanda Verhoff PA-C Work Phone: [facility] [employer] 07-11-2023 12:49-0500 Diastolic blood pressure 94 mm[Hg] Amanda Verhoff PA-C Work Phone: [facility] 07-11-2023 12:49-0500 Heart rate 74 /min Amanda Verhoff PA-C Work Phone: [facility] 07-11-2023 12:49-0500 SaO2% (BldA) [Mass fraction] 100 % [facility]-C [facility] 07-11-2023 12:49-0500 Systolic blood pressure 146 mm[Hg] Amanda Verhoff PA-C Work Phone: [facility] 05-16-2023 10:33-0500 Body height 165.1 cm Dena Fernandez APRN-SUPERVISOR [employer] Work Phone: [facility] 05-16-2023 10:33-0500 Body mass index (BMI) [Ratio] 31.12 kg/m2 Dena Fernandez APRN-SUPERVISOR [employer] Work Phone: [facility] 05-16-2023 10:33-0500 Body weight 84.82 kg Dena Fernandez APRN-SUPERVISOR [employer] Work Phone: [facility] 05-16-2023 10:33-0500 Diastolic blood pressure 86 mm[Hg] Dena Fernandez ASSEMBLY MACHINE TOOL SETTER-SUPERVISOR [employer] Work Phone: [facility] 05-16-2023 10:33-0500 Heart rate 74 /min Dena Fernandez APRN-SUPERVISOR [employer] Work Phone: [facility] 05-16-2023 10:33-0500 SaO2% (BldA) [Mass fraction] 99 % Dena Fernandez APRN-SUPERVISOR [employer] Work Phone: [facility] 05-16-2023 10:33-0500 Systolic blood pressure 131 mm[Hg] Dena Fernandez APRN-SUPERVISOR [employer] Work Phone: [facility] 09-25-2021 11:55-0400 Body height 165.1 cm Lavernmelisa Kelsey Other [facility] Other 09-25-2021 11:55-0400 Body mass index (BMI) [Ratio] 33.61 kg/m2 Lavern Kelsey Other [facility] Other 09-25-2021 11:55-0400 Body temperature 97.4 [degF] Lavern Kelsey Other [facility] Other 09-25-2021 11:55-0400 Body weight 91.63 kg Lavern Kelsey Other [facility] Other 09-25-2021 11:55-0400 SaO2% (BldA) [Mass fraction] 96 % Lavern Kelsey Other [place] [facility] Other Encounters Encounter Date Encounter Type Care Provider Facility Start: 12-19-2023 End: 12-19-2023 ambulatory GEOFFREY R [facility] Start: 12-18-2023 End: 12-18-2023 ambulatory GEOFFREY DEL ROSARIOO Not Available Start: 12-17-2023 End: 12-17-2023 ambulatory PIETER VARGAS Not Available Start: 12-03-2023 End: 12-03-2023 ambulatory [facility] Start: 11-30-2023 End: 11-30-2023 ambulatory [facility] Start: 10-19-2023 End: 10-19-2023 ambulatory [facility] Start: 10-17-2023 End: 10-17-2023 ambulatory [facility] Start: 10-15-2023 End: 10-15-2023 ambulatory BLANCO NADERER Not Available Start: 09-10-2023 End: 09-10-2023 ambulatory BLANCO NADERER Not Available Start: 09-05-2023 End: 09-05-2023 ambulatory Zahraa Kate Facility[facility] Start: 09-05-2023 End: 09-05-2023 Patient encounter procedure Zahraa Kate [facility] Start: 09-04-2023 ambulatory Pieter Vargas Facilit y:[facility] Start: 08-27-2023 End: 08-27-2023 ambulatory PIETER VARGAS Not Available Start: 08-22-2023 ambulatory Zahraa Kate Facility :[facility] Start: 08-15-2023 End: 08-16-2023 ambulatory FABIOLA [facility] Start: 08-07-2023 End: 08-07-2023 ambulatory Zahraa Kate Facility:[facility] Start: 08-07-2023 End: 08-07-2023 Patient encounter procedure Zahraa Kate [facility] Start: 07-17-2023 Telephone encounter [facility] Start: 07-17-2023 End: 07-17-2023 Office outpatient visit 25 minutes Renetta Cabrera MD Work Phone: [facility] Comment on above: Type 2 diabetes randy itus with hyperglycemia, with long-term current use of insulin ([facility]) (Primary Dx); At risk for bone density loss; Other specified disorders of bone density and structure, other site; Hypophosphatasia; 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; Nodular goiter; Primary hypothyroidism; Mixed hyperlipidemia Start: 07-17-2023 End: 07-17-2023 ambulatory RENETTA SUMMERSFREDI [facility] Start: 07-12-2023 End: 07-12-2023 ambulatory PIETER VARGAS Not Available Start: 07-11-2023 End: 07-11-2023 Office outpatient new 45 minutes Amanda Simpson PA-C Work Phone: [facility] Comment on above: Lumbar spondylosis ( Primary Dx); Disorder of sacrum; Lumbar radiculopathy Start: 07-11-2023 End: 07-11-2023 ambulatory AMANDA KOLBBEATA [facility] Start: 07-03-2023 Telephone encounter Florecita Catalan [facility] Start: 07-02-2023 End: 07-02-2023 ambulatory PIETER VARGAS Not Available Start: 06-26-2023 ambulatory Zahraa Kate Facility [facility] Start: 06-18-2023 End: 06-18-2023 ambulatory BLANCO CHAVEZ Not Available Start: 06-11-2023 End: 06-11-2023 ambulatory BLANCO CHAVEZ [facility] Start: 06-05-2023 End: 06-05-2023 ambulatory BLANCO CHAVEZ Not Available Start: 05-29-2023 End: 05-29-2023 ambulatory Zahraa Kate Facility:[facility] Start: 05-29-2023 End: 05-29-2023 Patient encounter procedure Zahraa Kate [facility] Start: 05-22-2023 End: 05-22-2023 Refleona Cabrera MD Work Phone: [facility] Comment on above: Type 2 diabetes randy itus with hyperglycemia, with long-term current use of insulin ([facility]); 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 Start: 05-22-2023 End: 05-22-2023 Patient encounter procedure Zahraa Whittakerler [facility] Start: 05-18-2023 Refill Davina Rosales ASSEMBLY MACHINE TOOL SETTER-SUPERVISOR [employer]ERS Work Phone: [facility] Comment on above: Mixed hyperlipidemia ; Type 2 diabetes mellitus with hyperglycemia, with long-term current use of insulin ([facility]) Start: 05-16-2023 End: 05-16-2023 Office outpatient visit 25 minutes [facility] ASSEMBLY MACHINE TOOL SETTER-SUPERVISOR [employer]ERS Work Phone: [facility] Comment on above: BUTCH (obstructive sle ep apnea) (Primary Dx); 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[facility]); Mild intermittent asthma without complication; Class 1 obesity with body mass index (BMI) of 31.0 to 31.9 in adult, unspecified obesity type, unspecified whether serious comorbidity present; CPAP use counseling Start: 05-16-2023 End: 05-16-2023 ambulatory [facility] Start: 05-03-2023 End: 05-03-2023 ambulatory PIETER VARGAS Not Available Start: 04-30-2023 End: 04-30-2023 ambulatory Zahraa Kate Facility:[facility] Start: 04-30-2023 End: 04-30-2023 Patient encounter procedure Zahraa Kate [facility] Start: 04-24-2023 End: 09-11-2023 ambulatory BLANCO CHAVEZ Facility:[facility] Start: 04-17-2023 End: 05-10-2023 Patient encounter procedure BLANCO CHAVEZ [facility] Start: 04-17-2023 End: 05-10-2023 ambulatory BLANCO CHAVEZ Facility:[facility] Start: 04-12-2023 End: 04-12-2023 ambulatory PIETER VARGAS Not Available Start: 04-10-2023 ambulatory Zahraa Kate Facility :[facility] Start: 03-29-2023 End: 03-30-2023 Pre-admission assessment BLANCO CHAVEZ [facility] Start: 03-27-2023 ambulatory Zahraa Kate Facility :[facility] Start: 03-20-2023 End: 03-20-2023 ambulatory Zahraa Kate Facility:[facility] Start: 03-20-2023 End: 03-20-2023 Patient encounter procedure Zahraa Kate [facility] Start: 02-20-2023 End: 02-20-2023 ambulatory Zahraa Kate Facility:[facility] Start: 02-06-2023 End: 02-06-2023 ambulatory Zahraa Kate Facility:[facility] Start: 01-24-2023 ambulatory Art Scott acility:[facility] Start: 01-17-2023 ambulatory Zahraa Kate Facility:[facility] Start: 01-16-2023 End: 01-16-2023 Patient encounter procedure Zahraa Kate [facility] Start: 01-16-2023 End: 01-16-2023 ambulatory Zahraa Kate Facility[facility] Start: 12-28-2022 End: 12-28-2022 [facility] Start: 12-14-2022 ambulatory [facility]raa Kate [facility] Start: 08-28-2022 ambulatory FABIOLADOROTHY TODD [facility] Start: 03-02-2022 End: 03-02-[address] BLANCO CHAVEZ Facility:[facility] Start: 12-29-2021 End: 12-30-[address] GEOFFREY COTTO Facility:[facility] Start: 12-12-2021 End: 12-12-[address] GEOFFREY COTTO Facility:[facility] Start: 12-12-2021 End: 12-13-[address] GEOFFREY COTTO Facility:[facility] Start: 09-25-2021 End: 09-25-2021 ambulatory Lavern Kelsey Other [facility] Other Start: 09-25-2021 Office outpatient ne w 20 minutes Lavern Kelsey [facility] Start: 05-27-2021 End: 05-28-[address] GEOFFREY COTTO Facility:[facility] Start: 05-23-2021 End: 05-23-[address] GEOFFREY COTTO Facility:[facility] Start: 05-12-2021 End: 05-13-[address] DOCTOR HUGHES Facility:[facility] Start: 03-31-2021 End: 03-31-[address] BLANCO CHAVEZ Facility:[facility] Start: 03-21-[address] BLANCO CHAVEZ Facil ity:[facility] Start: 03-15-[address] BLANCO CHAVEZ Facil ity:[facility] Start: 03-14-[address] BLANCO CHAVEZ Facil ity:[facility] Start: 03-09-2021 End: 03-31-[address] BLANCO CHAVEZ Facility:[facility] Start: 03-07-[address] BLANCO CHAVEZ Facil ity:[facility] Start: 09-11-2018 End: 09-12-2018 Patient encounter procedure PROVIDER UNKNOWN Facility:[facility] Start: 06-12-2018 End: 06-13-2018 Patient encounter procedure DEFAULT PHYSICIAN Facility:[facility] Start: 12-19-2017 End: 12-20-2017 Patient encounter procedure PROVIDER UNKNOWN Facility:[facility] Start: 12-07-2016 End: 12-07-2016 Emergency department patient visit [facility] Procedures Date Procedure Procedure Detail Performing Clinician Start: 07-17-2023 Hemoglobin glycosylated a1c Renetta Cabrera MD Work Phone: Start: 12-27-2022 Adult depression scr eening assessment Dena Fernandez ASSEMBLY MACHINE TOOL SETTER-SUPERVISOR [employer] Work Phone: Start: 12-26-2022 Microalbumin [Mass/v olume] in Urine by Test strip Dena Fernandez ASSEMBLY MACHINE TOOL SETTER-SUPERVISOR [employer] Work Phone: section Zahraaalfredo Holm r Colonoscopy Zahraa Humble Tonsillectomy Zahraa Humble Plan of Treatment Date Care Activity Detail Author Start: 02-27-2031 DTaP,Tdap and Td Vaccines (8 - Td or Tdap) DTaP,Tdap and Td Vaccines (8 - Td or Tdap) [facility] Start: 07-16-2024 Adult BMI Screening [facility] Start: 07-16-2024 Tobacco Screening Tobacco Screening [facility] Start: 07-11-2024 Adult BMI Screening [facility] Start: 07-11-2024 Tobacco Screening [facility] Start: 05-16-2024 Adult BMI Screening [facility] Start: 05-16-2024 Tobacco Screening [facility]ening [facility] Start: 02-13-2024 End: 02-13-2024 Patient encounter procedure 02/13/2024 1:45 PM EDT Office Visit [facility] [address] [place] [phone] Renetta Cabrera MD [address] [place] [address] [facility] Start: 12-28-2023 Depression Screening Depression Screening [facility] Start: 12-27-2023 Urine screening for protein Urine Microalbumin [facility] Start: 10-17-2023 End: 10-17-2023 Patient encounter procedure 10/17/2023 1:00 PM EDT Office Visit [facility] [address] [place] [phone] Davina Rosales, ASSEMBLY MACHINE TOOL SETTER-SUPERVISOR [employer] [address] [place] [address] [facility] Start: 08-22-2023 End: 08-22-2023 Patient encounter procedure 08/22/2023 1:45 PM EDT Office Visit [facility] [address] [place] [phone] Amanda Simpson PA-C [address] [place], [place] [id number] [facility] Start: 08-15-2023 End: 08-15-2023 Patient encounter procedure 08/15/2023 10:15 AM EDT Office Visit [facility] [place] [phone] Dena Fernandez, ASSEMBLY MACHINE TOOL SETTER-SUPERVISOR [employer] [address] [facility], [address] [place] [id number] [facility] Start: 07-17-2023 End: 07-17-2023 Patient encounter procedure 07/17/2023 9:15 AM EST Office Visit [facility] [address] [place] [phone] Renetta Cabrera MD [address] [place] [address] [facility] Start: 07-11-2023 End: 07-11-2023 Patient encounter procedure 07/11/2023 1:00 PM EST Office Visit [facility] [address] [place] [phone] Amanda Simpson PAKeziaC [address] [place] [address] [facility] Start: 05-22-2023 End: 05-22-2023 Patient encounter procedure 05/22/2023 9:30 AM EST Office Visit [facility] [address] [place] [address] Renetta Cabrera MD [address] [place] [address] [facility] Start: 01-12-2023 COVID-19 Vaccine ( season) COVID-19 Vaccine ( season) [facility] Start: 2010 Screening for malignant neoplasm of cervix Pap Smear [facility] Start: 2007 Adult BMI Follow Up Plan Adult BMI Follow Up Plan [facility] Start: 2007 Diabetic foot examination Diabetic Foot Exam [facility] Start: 1989 Glaucoma screening Diabetic Ophthalmology Exam [facility] Immunizations Immunization Date Immunization Notes Care Provider Chantal sullivan 02-27-2018 influenza, injectabl e, quadrivalent, preservative free Dena Kregel ASSEMBLY MACHINE TOOL SETTER-SUPERVISOR [employer] Work Phone: [facility] 01-17-2018 tetanus toxoid, redu sagrario diphtheria toxoid, and acellular pertussis vaccine, adsorbed Dena Kregel ASSEMBLY MACHINE TOOL SETTER-SUPERVISOR [employer]ERS Work Phone: [facility] Payers Date Payer Category Payer Medicaid [id number] 2022 Self-pay 2022 [place] [id number] 2022-Present [phone] [address] [place] [address] [id number] 2016 Unknown [id number] 2016 Medicare ANTHEM MEDICARE ANTHEM MEDICARE ADVANTAGE [id number] 2016-Present [phone] [address] [place] [address] [id number] [id number] 1989 Unknown [id number] 2.16.840.1.747171.3.579.2.647 1989 Unknown [id number] 2.16.840.1.671292.3.579.2.647 1989 Unknown [id number] 2.16.840.1.584095.3.579.2.647 1989 Unknown [id number] 2.16.840.1.354200.3.579.2.593 1989 Unknown [id number] 2.16.840.1.367644.3.579.2.593 1989 Unknown [id number] 2.16.840.1.611956.3.579.2.593 1989 Unknown [id number] 2.16.840.1.446094.3.579.2.593 1989 Unknown [id number] 2.16.840.1.013367.3.579.2.593 1989 Unknown [id number] 2.16.840.1.502752.3.579.2.593 1989 Unknown [id number] 2.16.840.1.470154.3.579.2.593 1989 Unknown [id number] 2.16.840.1.092911.3.579.2.593 1989 Unknown [id number] 2.16.840.1.516679.3.579.2.593 1989 Unknown [id number] 2.16.840.1.844422.3.579.2.593 1989 Unknown [id number] 2.16.840.1.126276.3.579.2.593 1989 Unknown [id number] 2.16.840.1.918415.3.579.2.593 1989 Unknown [id number] 2.16.840.1.819818.3.579.2.593 1989 Unknown [id number] 2.16.840.1.913008.3.579.2.72 1989 Unknown [id number] 2.16.840.1.939636.3.579.272 1989 Unknown [id number] 2.16.840.1.680430.3.579.2.72 1989 Unknown [id number] 2.16.840.1.206968.3.579.272 1989 Unknown [id number] 2.16840.1.788082.3.579.272 1989 Unknown [id number] 2.16.840.1.436950.3.579.272 1989 Unknown [id number] 2.16.840.1.297658.3.579.272 1989 Unknown [id number] 2.16.840.1.148269.3.579.272 1989 Unknown [id number] 2.16.840.1.656563.3.579.2.72 1989 Unknown [id number] 2.16.840.1.344405.3.579.2.72 1989 Unknown [id number] 2.16.840.1.387491.3.579.2.72 1989 Unknown [id number] 2.16.840.1.764349.3.579.272 1989 Unknown [id number] 2.16.840.1.185949.3.579.2.72 1989 Unknown [id number] 2.16.840.1.846755.3.579.2.727 1989 Unknown [id number] 2.16.840.1.350608.3.579.2.727 1989 Unknown [id number] 2.16.840.1.016442.3.579.2.727 1989 Unknown [id number] 2.16.840.1.572062.3.579.2.727 1989 Unknown [id number] 2.16.840.1.244869.3.579.2.727 1989 Unknown [id number] 2.16.840.1.516861.3.579.2.1285 1989 Unknown [id number] 2.16840.1.626113.3.579.2.1285 1989 Unknown [id number] 2.840.1.442754.3.579.2.1285 1989 Unknown [id number] 2.840.1.379892.3.579.2.128 1989 Unknown [id number] 2.840.1.571016.3.579.2.1258 1989 Unknown [id number] 2.16840.1.475276.3.579.2.9 1989 Unknown [id number] 2.16840.1.846498.3.579.2.1258 1989 Unknown [id number] 2.16840.1.050440.3.579.2.1258 1989 Unknown [id number] 2.16840.1.326410.3.579.2.1258 1989 Unknown [id number] 2.16840.1.789815.3.579.2.1258 1989 Unknown [id number] 2.16840.1.531088.3.579.2.9 1989 Unknown [id number] 2.16840.1.506409.3.579.2.1259 1989 Unknown [id number] 2.16.840.1.943497.3.579.2.1259 1989 Unknown [id number] 2.16.840.1.875663.3.579.2.1259 1989 Unknown [id number] 2.16.840.1.307225.3.579.2.9 1989 Unknown [id number] 2.16.840.1.229688.3.579.2.9 1989 Unknown [id number] 2.16.840.1.536633.3.579.2.1258 1989 Unknown [id number] 2.16840.1.481084.3.579.2.9 1989 Unknown [id number] 2.840.1.872507.3.579.2.1285 1989 Unknown [id number] 2.840.1.278286.3.579.2.1285 1989 Unknown [id number] 2.840.1.965561.3.579.2.1285 1989 Unknown [id number] 2.16840.1.828383.3.579.2.128 1989 Unknown [id number] 2.840.1.669600.3.579.2.1285 1989 Unknown [id number] 1960 Medicaid [id number] 1960 Self-pay [id number] 1960 Unknown [id number] Medicaid [id number] Unknown Unknown [id number] Social History Date Type Detail Facility Start: 06-03-2020 End: 05-16-2023 Sex Assigned At [facility] Tobacco smoking status No Smokin g Status Entered [facility] Start: 04-26-2022 Tobacco smoking status NHIS Never smoked tobacco [facility] Start: 04-26-2022 Tobacco use and exposure Smokeless tobacco non-user [facility] Start: 05-16-2023 End: 07-17-2023 Alcohol intake Current non-drinker of alcohol (finding) [facility] Start: 06-03-2020 End: 05-16-2023 Alcohol intake [facility] Adolescent depressio n screening assessment 0 [facility] Start: 05-16-2016 Alcohol Comment rarely [facility] Start: 1990 Sex Assigned At Female [facility] Start: 10-28-2021 Gender identity Identifies as female gender (finding) [facility] Start: 10-28-2021 Sexual orientation Heterosexual (finding) [facility] Medical Equipment Procedure Code Equipment Code Equipment Origin al Text Equipment Identifier Dates USE DIRECTED TO TEST 3 TIMES A DAY [id number] Start: 10-31-2022 End: 05-22-2023 Use as directed to give insulin injections 5 times daily [id number] Start: 08-17-2020 Checking daily [id number] Start: 06-15-2022 End: 07-17-2023 Use as directed to give insulin 5 times daily. [id number] Start: 08-10-2020 USE DIRECTED TO TEST 3 TIMES A DAY [id number] Start: 05-22-2023 End: 07-17-2023 USE DIRECTED TO TEST 1 TIME DAILY [id number] Start: 07-17-2023 Checking daily [id number] Start: 07-17-2023 Clinical Notes 09-25-2021 to 08-15-2023 Telephone Encounter - Rosa Tovar - 07/17/2023 12:58 PM ESTTelephone Encounter - Rosa Tovar - 07/17/2023 12:58 PM ESTTelephone Encounter - Rosa Tovar - 07/17/2023 12:58 PM EST Note Date & Type Note Facility 08-15-2023 Note Aida Dunn is a ple asant 33 year old female type I diabetic and young mother of two children previously evaluated for orthostatic intolerance (OI) consistent with postural orthostatic tachycardia syndrome (POTS),at our [facility] in the [facility] at the [facility]. Chief Complaint: Random palpitations. Stands and feels like I can't breathe. Noticed lightheaded/ dizzy brief with standing. Stops if sits. Started a new med for hypophosphatasia. Causing labile blood sugars 90-300 within one hour Review of Systems Cardiovascular: Positive for dyspnea on exertion and palpitations. Negative for chest pain, near-syncope and syncope. Musculoskeletal: Negative for falls. Neurological: Positive for dizziness and light-headedness. Negative for headaches. Objective Vitals reviewed. Constitutional: Appearance: Healthy appearance. Not in distress. Neck: Vascular: No JVR. JVD normal. Pulmonary: Effort: Pulmonary effort is normal. Breath sounds: Normal breath sounds. No wheezing. No rhonchi. No rales. Chest: Chest wall: Not tender to palpatation. Cardiovascular: PMI at left midclavicular line. Normal rate. Regular rhythm. Normal S1. Normal S2. Murmurs: There is no murmur. No gallop. No click. No rub. Pulses: Intact distal pulses. Edema: Peripheral edema absent. Abdominal: General: Bowel sounds are normal. Palpations: Abdomen is soft. Tenderness: There is no abdominal tenderness. Musculoskeletal: Normal range of motion. General: No tenderness. Skin: General: Skin is warm and dry. Neurological: General: No focal deficit present. Mental Status: Alert and oriented to person, place and time. Assessment/Plan The primary encounter diagnosis was Diabetic autonomic neuropathy associated with type 2 diabetes mellitus (CMS/HCC). Diagnoses of Postural orthostatic tachycardia syndrome (POTS), Palpitations, and Supraventricular tachycardia (CMS/HCC) were also pertinent to this visit. Problem List Items Addressed This Visit Nervous Diabetic autonomic neuropathy (CMS/HCC) - Primary Circulatory Postural orthostatic tachycardia syndrome (POTS) Other Visit Diagnoses Palpitations Relevant Orders ECG 12 lead Supraventricular tachycardia (CMS/HCC) Relevant Medications labetalol (Normodyne) 100 mg tablet POTS; Stable. Mild dizziness. Orthostatic. No significant OH. Continues labetalol for IST and HTN. Tolerates well. EKG in clinic NSR. Normal intervals. Likely the mild symptoms secondary to new medication and causing BS dysregulation. Speak to weigh and charge worker. RTC yearly. Fabiola Todd APRN PhD [facility] Nurse Practitioner Division of Cardiovascular Medicine [facility]. [facility] 07-17-2023 Miscellaneous Notes ----- Message from Renetta Cabrera MD sent at 07/17/2023 9:55 AM EST ----- Refills for pump supplies and G6 sensors/ transmitter Spoke with patient. She uses [facility]. I faxed her chart note. documented in this encounter [facility] 07-17-2023 Telephone encounter Note ----- Message from Renetta Cabrera MD sent at 07/17/2023 9:55 AM EST ----- Refills for pump supplies and G6 sensors/ transmitter [facility] 07-17-2023 Telephone encounter Note Spoke with patient. She uses [facility]. I faxed her chart note. [facility] 07-17-2023 History of Present illness Narrative Images from the original note were not included. REASON FOR VISIT: Aida Dunn returns today for follow-up of her diabetes. DIABETES HISTORY: Type of Diabetes: Type 2 Diabetes Duration of Diabetes: since 2013 INTERVAL HISTORY: Patient had bad reaction to Strensiq when he she took the full dose but she wants to retry taking maybe 1/3 the dose or lower and sees over the next 3-6 months she can slowly up titrate until she can tolerate it as she was able to tolerate the low doses but not the full dose. Her blood sugars were also very high and she also felt like she gained significant amount of weight but she is willing to try a very low-dose of Strensiq and see if she gets better. She does not have any other allergic features to the medication otherwise. Lab Results Component Value Date TSH 0.60 12/26/2022 T4 1.06 05/08/2022 T3 3.49 05/20/2020 CREATININE 0.83 06/11/2023 GFR >60 08/29/2021 GFR >60 08/29/2021 CHOL 211 (H) 12/26/2022 LDLCALC 127 12/26/2022 HDL 45 12/26/2022 TRIG 193 (H) 12/26/2022 MICROALBUR <0.7 12/26/2022 Lab Results Component Value Date SGTJBUV6T 6.7 07/17/2023 JRINZYQ2N 6.5 12/25/2022 SKUJPHA2N 7.0 08/25/2022 GLU 172 (H) 06/11/2023 GLU 212 (H) 12/26/2022 GLU 218 (A) 08/25/2022 Lab Results Component Value Date ALBCREATRA NOT CALCULATED 12/26/2022 ALBCREATRA 216.9 (H) 05/08/2022 ALBCREATRA NOT CALCULATED 08/05/2021 Lab Results Component Value Date LABINSU 56.03 (H) 01/10/2019 DIABETES COMPLICATIONS/SURVEILLANCE: Retinopathy: no Last eye exam: overdue Nephropathy: no Peripheral neuropathy: no Autonomic neuropathy: no Macrovascular disease: CAD: no PVD: no Stroke: no Hypertension: yes Dyslipidemia: no Recently experiencing neck pain and losing some balance and goiter is larger. Workup also suggestive underlying hypophosphatasia. See labs below. GLUCOSE CONTROL: Diabetes medications: Insulin pump Type: Tandem Tslim with Control IQ staying in sleep mode Insulin pump settings can be found in the media portion of this chart. Insulin pump settings reviewed with patient. Blood glucose summary: Patient is checking glucose frequently per continuous glucose sensor Childhood hypophosphatasia - missing 8 teeth Has dental issues Has low ALP with dizziness, losing balance Had symptoms before age of 17 Lab Results Component Value Date ALKALINEPHO 2,983 (H) 06/11/2023 ALKALINEPHO 37 (L) 04/28/2020 ALKALINEPHO 38 (L) 04/09/2020 Past Medical History: Diagnosis Date Abdominal pain Abnormal involuntary movement Anxiety Asthma 05/16/2016 Autism Bacterial vaginosis Bladder incontinence [place] hump Carpal tunnel syndrome, bilateral Chronic hypertension affecting 01/15/2018 Colitis Constipation Depression Dizziness 03/07/2018 DM type 2 (diabetes mellitus, type 2) ([facility]) Dyslipidemia Edema, lower extremity Fatigue Fibromyalgia Gait disturbance Giddiness Kaleb's thyroiditis Hearing loss 03/07/2018 History of intrauterine History of delivery HPP (hereditary pyropoikilocytosis) ([facility]) ENDOCRINOLOGY IS TESTING TO CONFIRM DIAGNOSIS HPP (hereditary pyropoikilocytosis) ([facility]) HTN (hypertension) Hyperlipidemia Hypophosphatasia Hypothyroid IBS (irritable bowel syndrome) IBS (irritable bowel syndrome) 11/22/2016 Inappropriate sinus node tachycardia Inappropriate sinus tachycardia Intracranial arachnoid cyst Low back pain Meniere's disease Metabolic syndrome Migraine headache Neck pain Neuralgia and neuritis Neuropathy Nodular goiter Obesity BUTCH (obstructive sleep apnea) BUTCH (obstructive sleep apnea) 05/16/2016 PCOS (polycystic ovarian syndrome) Periodic limb movement 05/16/2016 Phosphorus metabolism disorder Polycystic ovarian syndrome POTS (postural orthostatic tachycardia syndrome) Seasonal allergies Sleep apnea Somatoform pain disorder Tachycardia Thyroid nodule Tinnitus of both ears Toe deformity Vertigo Past Surgical History: Procedure Laterality Date BLADDER SURGERY N/A 01/14/2018 Performed by Torsten Talley MD at [facility] OR COLONOSCOPY 2014 normal COLONOSCOPY N/A 03/04/2020 Performed by Salvatore Connors DO at [facility] EGD N/A 03/04/2020 Performed by Salvatore Connors DO at [facility] LAPAROSCOPY 08/2016 scar tissue removal from appendix NASAL SEPTUM SURGERY 2008 TONSILLECTOMY Current Outpatient Medications: albuterol (PROVENTIL HFA;VENTOLIN HFA) 90 mcg/actuation inhaler, TAKE 2 PUFFS BY MOUTH EVERY 6 HOURS NEEDED FOR WHEEZE OR FOR SHORTNESS OF BREATH, Disp: 18 g, Rfl: 3 albuterol (PROVENTIL,VENTOLIN) 2.5 mg /3 mL (0.083 %) nebulizer solution, Inhale 3 mL (2.5 mg total) by nebulization every 6 (six) hours as needed for wheezing or shortness of breath., Disp: 360 mL, Rfl: 11 blood sugar diagnostic ([facility] VERIO TEST STRIPS) strip, USE DIRECTED TO TEST 3 TIMES A DAY, Disp: 300 strip, Rfl: 3 blood-glucose meter,continuous (DEXCOM G6 ROUSTABOUT PUSHER) [facility] [place], Use as direct to monitor sensor glucose., Disp: 1 each, Rfl: 0 blood-glucose sensor (DEXCOM G6 SENSOR) device, USE DIRECTED CHANGE EVERY 10 DAYS, Disp: 9 each, Rfl: 3 blood-glucose transmitter (DEXCOM G6 TRANSMITTER) device, DIRECTED SUBCUTANEOUSLY CHANGE EVERY 3 MONTHS, Disp: 1 each, Rfl: 3 cetirizine (ZyrTEC) 10 mg capsule, Take 1 capsule (10 mg total) by mouth daily., Disp: 30 capsule, Rfl: 11 fluticasone propionate (FLONASE) 50 mcg/actuation nasal spray, Administer 1 spray into each nostril daily., Disp: 15.8 mL, Rfl: 11 hydrOXYzine (ATARAX) 25 mg tablet, Take 1 tablet (25 mg total) by mouth 3 (three) times a day as needed for itching., Disp: , Rfl: insulin lispro (HumaLOG U-100 Insulin) 100 unit/mL injection, USE UP TO 50 UNITS A DAY PER INSULIN PUMP DX:E11.9, Disp: 50 mL, Rfl: 3 insulin syringe-needle U-100 1/2 mL 31 gauge x 15/64 syringe, Use as directed to give insulin injections 5 times daily, Disp: 200 each, Rfl: 6 labetaloL (NORMODYNE) 100 mg tablet, Take 1 tablet (100 mg total) by mouth 3 (three) times a day., Disp: , Rfl: lactulose (KRISTALOSE) 20 gram packet, Take 1 packet (20 g total) by mouth as needed., Disp: , Rfl: levothyroxine (SYNTHROID, LEVOTHROID) 25 MCG tablet, Take 1 tablet (25 mcg total) by mouth in the morning., Disp: 90 tablet, Rfl: 3 meclizine (ANTIVERT) 25 mg tablet, Take 1 tablet (25 mg total) by mouth 4 (four) times a day as needed., Disp: , Rfl: omeprazole (PriLOSEC) 40 mg capsule, Take by mouth as needed., Disp: , Rfl: ondansetron ODT (ZOFRAN ODT) 4 mg disintegrating tablet, Dissolve 1 tablet (4 mg total) on tongue every 8 (eight) hours as needed for nausea or vomiting., Disp: 20 tablet, Rfl: 0 ONETOUCH DELICA PLUS LANCET 33 gauge misc, Checking daily, Disp: 100 each, Rfl: 3 ONETOUCH VERIO METER misc, New meter, Disp: 1 each, Rfl: 0 pen needle, diabetic (BD KATLYN 2ND GEN PEN NEEDLE) 32 gauge x 5/32 needle, Use as directed to give insulin 5 times daily., Disp: 200 each, Rfl: 7 SYMBICORT 160-4.5 mcg/actuation inhaler, Inhale 2 puffs in the morning and 2 puffs before bedtime. (Patient taking differently: Inhale 2 puffs as needed.), Disp: 10.2 g, Rfl: 11 atorvastatin (LIPITOR) 20 mg tablet, TAKE 1 TABLET (20 MG TOTAL) BY MOUTH IN THE MORNING (Patient not taking: Reported on 07/11/2023), Disp: 90 tablet, Rfl: 3 cyproheptadine (PERIACTIN) 4 mg tablet, Take 1 tablet (4 mg total) by mouth 3 (three) times a day as needed for allergies. (Patient not taking: Reported on 07/11/2023), Disp: , Rfl: inhalational spacing device (AEROCHAMBER MV) spacer, Use as instructed (Patient not taking: Reported on 07/11/2023), Disp: 1 each, Rfl: 0 vit calc,iron,folic ( VITAMIN ORAL), Take 1 tablet by mouth in the morning. (Patient not taking: Reported on 07/11/2023), Disp: , Rfl: STRENSIQ 80 mg/0.8 mL solution, , Disp: , Rfl: Allergies, social history and family history were reviewed and updated in this chart. REVIEW OF SYSTEMS: 10-point ROS is negative, unless otherwise documented in HPI. PHYSICAL EXAM: Wt Readings from Last 3 Encounters: 07/17/23 84.8 kg (187 lb) 07/11/23 85.3 kg (188 lb) 05/16/23 84.8 kg (187 lb) Body mass index is 31.12 kg/m . Vitals: 07/17/23 0907 BP: 129/79 Pulse: 85 Weight: 84.8 kg (187 lb) Height: 165.1 cm (5' 5 ) Physical Exam Constitutional: General: Not in acute distress. Eyes: General: No scleral icterus. Extraocular Movements: Extraocular movements intact. Pupils: Pupils are equal, round, and reactive to light. Neck: Comments: Nodular goiter increase size of right nodules close to 1.5 cm-2 cm. Cardiovascular: Rate and Rhythm: Normal rate and regular rhythm. Pulmonary: Breath sounds: Normal breath sounds. Abdominal: General: Bowel sounds are normal. There is no distension. Palpations: Abdomen is soft. Tenderness: There is no abdominal tenderness. Musculoskeletal: General: No swelling. Lymphadenopathy: Cervical: No cervical adenopathy. Skin: General: Skin is warm and dry. Neurological: General: No focal deficit present. Mental Status: alert. Psychiatric: Mood and Affect: Mood normal. Diabetic foot exam: Visual exam was normal without lesions. Left: Pulses Dorsalis Pedis: present Vibratory sensation normal Filament test present Right: Pulses Dorsalis Pedis: present Vibratory sensation normal Filament test present LABS: This SmartLink has not been configured with any valid records. ASSESSMENT: Aida Dnun has uncontrolledType 2 Diabetes with complications of improving and hyperglycemia 1. Type 2 diabetes mellitus with hyperglycemia, with long-term current use of insulin ([facility]) - POCT Hemoglobin A1c 2. At risk for bone density loss 3. Other specified disorders of bone density and structure, other site 4. Hypophosphatasia 5. 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 Nodular goiter 7. Primary hypothyroidism 8. Mixed hyperlipidemia Lab Results Component Value Date TSH 0.60 12/26/2022 T4 1.06 05/08/2022 T3 3.49 05/20/2020 CREATININE 0.83 06/11/2023 GFR >60 08/29/2021 GFR >60 08/29/2021 CHOL 211 (H) 12/26/2022 LDLCALC 127 12/26/2022 HDL 45 12/26/2022 TRIG 193 (H) 12/26/2022 MICROALBUR <0.7 12/26/2022 Lab Results Component Value Date ZFYKNSA2T 6.7 07/17/2023 QBTTPZO7Y 6.5 12/25/2022 QDZJDVE6V 7.0 08/25/2022 GLU 172 (H) 06/11/2023 GLU 212 (H) 12/26/2022 GLU 218 (A) 08/25/2022 Wt Readings from Last 3 Encounters: 07/17/23 84.8 kg (187 lb) 07/11/23 85.3 kg (188 lb) 05/16/23 84.8 kg (187 lb) Body mass index is 31.12 kg/m . Vitals: 07/17/23 0907 BP: 129/79 Pulse: 85 Weight: 84.8 kg (187 lb) Height: 165.1 cm (5' 5 ) Start strensiq if approved by insurance Childhood hypophosphatasia - missing 8 teeth Has dental issues Has low ALP with dizziness, losing balance Had symptoms before age of 17 Lab Results Component Value Date ALKALINEPHO 37 (L) 04/28/2020 ALKALINEPHO 38 (L) 04/09/2020 ALKALINEPHO 34 (L) 10/15/2019 Use exercise mode to prevent low post exercise sensor download reviewed and interpreted on file in media. Patient had bad reaction to Strensiq when he she took the full dose but she wants to retry taking maybe 1/3 the dose or lower and sees over the next 3-6 months she can slowly up titrate until she can tolerate it as she was able to tolerate the low doses but not the full dose. Her blood sugars were also very high and she also felt like she gained significant amount of weight but she is willing to try a very low-dose of Strensiq and see if she gets better. She does not have any other allergic features to the medication otherwise. MEDICAL DECISION MAKING- DIAGNOSIS, DATA, TREATMENT -multiple chronic conditions reviewed and addressed -tests, notes , imaging listed, annotated reviewed, ordered and interpreted -prescription management including review and refills done as needed sensor download reviewed and interpreted on file in media. Mild persistent hyperglycemia noted. Increase all basal rates by 0.1. CC'd Chart Routing History Routing History From: Renetta Cabrera MD On: 07/17/2023 09:55 AM To: Kamila Hsu Priority: Routine Routing Comments: Kindly refill Humalog, levothyroxine, OneTouch Verio test strips, lancets Okay to start the prescription, pend it and route it to me. From: Renetta Cabrera MD On: 07/17/2023 09:55 AM To: Rosa Tovar Priority: Routine Routing Comments: Refills for pump supplies and G6 sensors/ transmitter A1c elevation is associated with significant risk for the development and progression of retinal, neurological and renal complications that can lead to vision loss, amputation, and renal failure. The need for good glucose control to prevent complications is discussed. Ongoing diabetes education is recommended. If possible a minimum of 150 minutes of physical activity per week is encouraged. On going progressive weight loss is advised. The signs symptoms and treatment of hypoglycemia are understood by the patient. The individual should not drive if symptoms of hypoglycemia are precieved and if possible the blood glucose should be check before driving or participating in dangerous activity. A diabetes ID is recommended. Yearly dilated eye examination and yearly urine Microalbumin to cr ratio are advised. The blood pressure should be maintained under 130/80. The LDL less than 70 mg/dl or 50% or more reduction from baseline LDL for primary prevention atherosclerosis and < 55 mg/dL as secondary prevention. Aggressive blood pressure and lipid management as suggested by ADA 2023 guidelines. Daily examination of the feet for signs of injury and inspection of the shoes for foreign body or shoe deformity that could lead to foot injury. Lab test reviewed/ interpreted/ordered as needed. Diet modification advised. Multiple chronic conditions as listed [id number] diagnosis, management and prognosis. Answered patient's questions to satisfaction. This note was created with the assistance of a speech-recognition program. Although the intention is to generate a document that actually reflects the content of the visit, no guarantees can be provided that every mistake has been identified and corrected by editing. . Return to clinic: 3 month Renetta Cabrera MD, MPH, [facility] [address] [address] Dept: [phone] FAX: [phone] documented in this encounter [facility] 07-17-2023 Instructions Renetta Cabrera MD - 07/17/2023 9:15 AM EST Mild persistent hyperglycemia noted. Increase all basal rates by 0.1. documented in this encounter [facility] 07-11-2023 History of Present illness Narrative [facility] [address] [place] [address] Patient: Aida Dunn Sex: female : 1990 Age: 33 y.o. PCP: BLANCO CHAVEZ MD 07/11/2023 Aida Dunn is here for a(n) initial consultation. Chief Complaint Patient presents with Back Pain HPI: Current PT for balance issues Back Pain This is a chronic problem. The current episode started more than 1 year ago (2013). The problem occurs 2 to 4 times per day. The problem has been gradually worsening since onset. The pain is present in the lumbar spine and sacro-iliac. The quality of the pain is described as shooting and stabbing. Radiates to: RLE. The pain is at a severity of 5/10. The pain is moderate. The pain is Worse during the day. The symptoms are aggravated by standing, bending, lying down and twisting (walking, stairs, lifting, pushing, pulling, transitioning, heat). Stiffness is present: occasionally. Associated symptoms include headaches, leg pain (RLE), numbness (RLE), tingling (RLE) and weakness (RLE). Pertinent negatives include no chest pain or fever. She has tried NSAIDs, muscle relaxant, home exercises, heat, ice and chiropractic manipulation (Current PT x6 visits, activity modification, ibuprofen, aleve, tylenol, flexeril, vicodin) for the symptoms. The treatment provided mild relief. The effect of pain on patient's ADLS: Severe Impairment. Past Medical History: Diagnosis Date Abdominal pain Abnormal involuntary movement Anxiety Asthma 05/16/2016 Autism Bacterial vaginosis Bladder incontinence [place] hump Carpal tunnel syndrome, bilateral Chronic hypertension affecting 01/15/2018 Colitis Constipation Depression Dizziness 03/07/2018 DM type 2 (diabetes mellitus, type 2) ([facility]) Dyslipidemia Edema, lower extremity Fatigue Fibromyalgia Gait disturbance Giddiness Kaleb's thyroiditis Hearing loss 03/07/2018 History of intrauterine History of delivery HPP (hereditary pyropoikilocytosis) ([facility]) ENDOCRINOLOGY IS TESTING TO CONFIRM DIAGNOSIS HPP (hereditary pyropoikilocytosis) ([facility]) HTN (hypertension) Hyperlipidemia Hypophosphatasia Hypothyroid IBS (irritable bowel syndrome) IBS (irritable bowel syndrome) 11/22/2016 Inappropriate sinus node tachycardia Inappropriate sinus tachycardia Intracranial arachnoid cyst Low back pain Meniere's disease Metabolic syndrome Migraine headache Neck pain Neuralgia and neuritis Neuropathy Nodular goiter Obesity BUTCH (obstructive sleep apnea) BUTCH (obstructive sleep apnea) 05/16/2016 PCOS (polycystic ovarian syndrome) Periodic limb movement 05/16/2016 Phosphorus metabolism disorder Polycystic ovarian syndrome POTS (postural orthostatic tachycardia syndrome) Seasonal allergies Sleep apnea Somatoform pain disorder Tachycardia Thyroid nodule Tinnitus of both ears Toe deformity Vertigo Past Surgical History: Procedure Laterality Date BLADDER SURGERY N/A 01/14/2018 Performed by Torsten Talley MD at [facility] OR COLONOSCOPY 2014 normal COLONOSCOPY N/A 03/04/2020 Performed by Salvatore Connors DO at [facility] EGD N/A 03/04/2020 Performed by Salvatore Connors DO at [facility] LAPAROSCOPY 08/2016 scar tissue removal from appendix NASAL SEPTUM SURGERY 2007 TONSILLECTOMY Allergies Allergen Reactions Hydrocortisone Other reaction(s): Other: See Comments steroid cream she placed in ear, caused entire face to swell, doesn't know name of cream Ciprofloxacin Other reaction(s): Other: See Comments dizzy, loss of equilibrium Keflex [Cephalexin] Macrobid [Nitrofurantoin Monohyd/M-Cryst] Metformin Diarrhea Neuromuscular Blockers, Steroidal Swelling Increases blood sugar Victoza 2-Ricki [Liraglutide] Nausea Latex, Natural Rubber Rash Family History Problem Relation Age of Onset Cancer Mother Diabetes Mother Hypertension Mother Arthritis Mother Breast cancer Mother Depression Mother Hyperlipidemia Mother Diabetes Father Arthritis Father Depression Father Heart disease Father Hypertension Father Hyperlipidemia Father Depression Sister Depression Brother Hypertension Brother Depression Maternal Grandmother Hypertension Maternal Grandmother Stroke Maternal Grandmother Tuberculosis Maternal Grandmother Hyperlipidemia Maternal Grandmother Heart disease Maternal Grandmother Diabetes Maternal Grandmother Depression Maternal Grandfather Hypertension Maternal Grandfather Diabetes Paternal Grandmother Heart disease Paternal Grandmother Hypertension Paternal Grandmother Hyperlipidemia Paternal Grandmother Stroke Paternal Grandmother Tuberculosis Paternal Grandmother Hypertension Paternal Grandfather Social History Socioeconomic History Marital status: Single Spouse name: Not on file Number of children: Not on file Years of education: Not on file Highest education level: Not on file Occupational History Not on file Tobacco Use Smoking status: Never Smokeless tobacco: Never Vaping Use Vaping Use: Never used Substance and Sexual Activity Alcohol use: No Alcohol/week: 0.0 standard drinks of alcohol Comment: rarely Drug use: No Sexual activity: Yes Partners: Male control/protection: None Other Topics Concern Not on file Social History Narrative Not on file Social Determinants of Health Financial Resource Strain: Not on file Food Insecurity: No Food Insecurity (07/11/2023) Hunger Screening Food Insecurity - Worry: Never True Food Insecurity - Inability: Never True Transportation Needs: Not on file Physical Activity: Not on file Stress: Not on file Social Connections: Not on file Interpersonal Safety: Not on file Housing Instability: Not on file Review of Systems Constitutional: Negative for chills and fever. HENT: Negative. Eyes: Negative. Respiratory: Negative for cough and shortness of breath. Cardiovascular: Negative for chest pain. Gastrointestinal: Negative. Endocrine: Negative. Genitourinary: Negative. Musculoskeletal: Positive for back pain and neck pain. Skin: Negative. Allergic/Immunologic: Negative. Neurological: Positive for tingling (RLE), weakness (RLE), numbness (RLE) and headaches. Hematological: Negative. Psychiatric/Behavioral: Negative. Vital Signs: BP (!) 146/94 Pulse 74 Ht 165.1 cm (5' 5 ) Wt 85.3 kg (188 lb) SpO2 100% BMI 31.28 kg/m Physical Exam: GENERAL - Healthy patient that appears stated age. HEENT - Normocephalic / Atraumatic, Extraoccular movements intact, trachea midline, thyroid within normal limits. CV - pulse regular, Warm extremities with appropriate color of nailbeds. RESP - No obvious wheezing, No Shortness of Breath, No overexertion response to exam maneuvers. COORDINATION - remains intact. PSYCH - Alert and Oriented x4, Attentive and appropriate, constitutionally normal, displays normal mood and affect per situation, answered questions appropriately during examination, demonstrated appropriate attention during discussion, demonstrated appropriate cognitive reasoning and understanding of the medical condition by asking appropriate questions regarding the diagnosis and risks/benefits/alternatives of treatment modalities. No obvious deficits in memory, reasoning, or intellect. Lumbar: SKIN - No rashes or bruising in the area of the patient s pain. LYMPH NODES - demonstrate no obvious enlargement. EXTREMITIES - Lower extremities are warm, with minimal edema and palpable pulses. Tenderness to palpation noted in the lumbar spine and paraspinal musculature. Pain is elicited with flexion, extension, and lateral rotation of the lumbar spine. Range of motion is diminished with these motions due to pain. Facet palpation is noted to be somewhat tender and facet loading maneuvers are mildly positive, but not concordant with the patient s normal pain complaints. STRENGTH - noted to be 5 out of 5 all muscle groups bilateral lower extremities including muscles involving hip flexion and abduction, knee flexion and extension, as well as foot dorsiflexion and plantarflexion. No notable atrophy, fasciculations or spasm. SENSORY - No notable sensory deficits in the bilateral lower extremities to touch or pinprick in all dermatomal distributions with exception to decreased sensation in the Right L4 and L5 levels. Straight Leg Raise is Positive on the Right Tenderness to palpation is noted over the Bilateral SacroIliac Joint: Fabere sign (Munir's Test) is significantly positive, as is compression and distraction of the sacroiliac joints, which is consistent with some of the patient's normal pain. Gait is antalgic. Assessment/Treatment Plan: Aida was seen today for back pain. Diagnoses and all orders for this visit: Lumbar spondylosis - Ambulatory referral to Physical Therapy; Future Disorder of sacrum - Ambulatory referral to Physical Therapy; Future Lumbar radiculopathy - Ambulatory referral to Physical Therapy; Future Physical/Aquatic Therapy - It is felt that the patient will benefit from a course of physical therapy focusing on the above mentioned diagnosis. We will recommend that the physical therapist fully evaluate and treat at their discretion considering the modalities that are most useful for the condition being treated. This may include modalities of comfort including moist heat, ultrasound, and TENS therapy. It may also utilize manual therapy and myofascial release for the myofascial component of the patient s pain. It will likely advance to modalities aimed at stabilizing and strengthing the target area while improving range of motion as well. We are also requesting that the physical therapist send notes that will keep our clinic updated to the patient s progress. Follow up 6 weeks The medications prescribed have been reviewed for medication interactions/contraindications and/or for upcoming procedures: continue current medication regimen without any changes. DISCUSSION: Treatment options discussed with patient and all questions answered to patient's satisfaction. Discussed the rules and regulations surrounding prescription of opioids and compliance at length. Failure to follow the rules and regulation will result in tapering and discontinuation of medications if applicable. Prescribed medication that requires intensive monitoring for toxicity We do not currently prescribe any controlled substance from this practice. Treatment plans discussed but not opted for at this time: Lumbar medial branch block and/or Nerve root injections. Patient would like to proceed with the current outlined treatment plan before moving forward with any other options. The spine model was demonstrated and MRI was reviewed and used to explain the condition. Chronic conditions not treated during this visit that affected my overall medical decision making: Obesity and Diabetes OARRS: Reviewed. Scribe Statement: Scribed for and in the presence of AMANDA SIMPSON PA-C by Vaishnavi Shea CNA. Provider Statement: I, AMANDA SMIPSON PA-C, personally performed the services described in the documentation, as scribed by Vaishnavi Shea CNA in my presence, and it is both accurate and complete. Vaishnavi Shea CNA 07/11/23 1413 Amanda Simpson PA-C 07/11/23 1426 documented in this encounter [facility] 07-03-2023 Miscellaneous Notes Images from the original note were not included. Patient called and left voicemail on [facility] nurse line at [facility]. Patient called in regards to her PAP supplies, patient stated that her DME, [facility], does not have orders for her PAP supplies. Advertising Writer reached back out to Maria Antonia Stephens with [facility] to see what the hold up was for this patient. Maria Antonia Stephens from [facility] responded back stating that they had received our office's order in May, but since the patient has Medicare [facility] was unable to use the order with all of the items listed. Maria Antnoia Stephens checked with their supply department and they said that they sent a new prescription through [facility] on 06/27. Advertising Writer signed order in [employer]. documented in this encounter [facility] 07-03-2023 Telephone encounter Note Images from the original note were not included. Patient called and left voicemail on SK nurse line at [facility]. Patient called in regards to her PAP supplies, patient stated that her DME, [facility], does not have orders for her PAP supplies. Advertising Writer reached back out to Maria Antonia Stephens with [facility] to see what the hold up was for this patient. Maria Antonia Stephens from [facility] responded back stating that they had received our office's order in May, but since the patient has Medicare [facility] was unable to use the order with all of the items listed. Maria Antonia Stephens checked with their supply department and they said that they sent a new prescription through [facility] on 06/27. Advertising Writer signed order in [employer]. [facility] 06-12-2023 Note Pt. cancelled PT re- evaluation due to not having anyone to watch her kids. [facility] 05-22-2023 Miscellaneous Notes Okay to sign and send documented in this encounter [facility] 05-22-2023 Telephone encounter Note Okay to sign and send [facility] 05-18-2023 Miscellaneous Notes Okay for atorvastatin. Humalog has different directions since last fill but I do not see dose changes in notes. Please advise documented in this encounter [facility] 05-18-2023 Telephone encounter Note Okay for atorvastatin. Humalog has different directions since last fill but I do not see dose changes in notes. Please advise [facility] 05-16-2023 History of Present illness Narrative Chief Complaint: Aida Dunn is a 33 y.o. female present for follow up visit regarding asthma and BUTCH HPI: Patient is accompanied by: self The patient reports that she has been continuing to use Symbicort and Albuterol. She did run out and needs more. Has some dyspnea with stairs. Albuterol 2 times per week. Nasal drainage. She denies any fever, chills, chest pain, shortness of breath, phlegm, cough or hemoptysis. Denies any ER visits or hospitalizations since she last visit in our office. Supplemental O2 use: none Frequency of respiratory infections: none in 6 months Has tried following inhalers in past: Symbicort and Albuterol Sleep Issues: The patient reports that she is adherent to her nocturnal ventilatory support for 7.5 hours a night 7 days per week. She reports feeling the benefits of wearing it nightly and denies any am fatigue or excessive daytime sleepiness. Denies any aerophagia. Denies any issues with mask fit or PAP machine. She denies sleepiness while driving. Supplemental O2 use: None Current PAP interface: She uses a Full Face Mask. She does not use a chinstrap. She does not use the heated inline humidifier. Cleaning supplies with soap and water. EPWORTH SLEEPINESS SCALE Sitting and Reading: Slight Chance Watching TV: Slight Chance Sitting inactive in a public place (theater, meeting): Never As a passenger in a car for an hour without a break: Slight Chance Lying down in the afternoon to rest: (!) Moderate Chance Sitting and talking to someone: Never Sitting quietly after lunch (without alcohol): Slight Chance In a car, while stopped for a few minutes in traffic: Never Total: 6 OARRS REVIEWED: Reviewed: no PMH @ Past Medical History: Diagnosis Date Anxiety Asthma 05/16/2016 Bacterial vaginosis [place] hump Chronic hypertension affecting 01/15/2018 Depression Dizziness 03/07/2018 DM type 2 (diabetes mellitus, type 2) ([facility]) Fatigue Fibromyalgia Kaleb's thyroiditis Hearing loss 03/07/2018 History of intrauterine History of delivery HPP (hereditary pyropoikilocytosis) ([facility]) ENDOCRINOLOGY IS TESTING TO CONFIRM DIAGNOSIS HPP (hereditary pyropoikilocytosis) ([facility]) HTN (hypertension) Hyperlipidemia IBS (irritable bowel syndrome) IBS (irritable bowel syndrome) 11/22/2016 Inappropriate sinus node tachycardia Inappropriate sinus tachycardia Meniere's disease Metabolic syndrome Migraine headache Neuropathy Nodular goiter Obesity BUTCH (obstructive sleep apnea) BUTCH (obstructive sleep apnea) 05/16/2016 Periodic limb movement 05/16/2016 Polycystic ovarian syndrome POTS (postural orthostatic tachycardia syndrome) Seasonal allergies Tachycardia Toe deformity PERTINENT HISTORY: Her pertinent medical history includes Past Medical History: Diagnosis Date Anxiety Asthma 05/16/2016 Bacterial vaginosis [place] hump Chronic hypertension affecting 01/15/2018 Depression Dizziness 03/07/2018 DM type 2 (diabetes mellitus, type 2) ([facility] [facility]) Fatigue Fibromyalgia Kaleb's thyroiditis Hearing loss 03/07/2018 History of intrauterine History of delivery HPP (hereditary pyropoikilocytosis) ([facility] [place]) ENDOCRINOLOGY IS TESTING TO CONFIRM DIAGNOSIS HPP (hereditary pyropoikilocytosis) ([facility] [place] [place]) HTN (hypertension) Hyperlipidemia IBS (irritable bowel syndrome) IBS (irritable bowel syndrome) 11/22/2016 Inappropriate sinus node tachycardia Inappropriate sinus tachycardia Meniere's disease Metabolic syndrome Migraine headache Neuropathy Nodular goiter Obesity BUTCH (obstructive sleep apnea) BUTCH (obstructive sleep apnea) 05/16/2016 Periodic limb movement 05/16/2016 Polycystic ovarian syndrome POTS (postural orthostatic tachycardia syndrome) Seasonal allergies Tachycardia Toe deformity CURRENT MEDICATIONS: Reviewed with patient. Current Outpatient Medications: albuterol (PROVENTIL HFA;VENTOLIN HFA) 90 mcg/actuation inhaler, TAKE 2 PUFFS BY MOUTH EVERY 6 HOURS NEEDED FOR WHEEZE OR FOR SHORTNESS OF BREATH, Disp: 18 g, Rfl: 3 albuterol (PROVENTIL,VENTOLIN) 2.5 mg /3 mL (0.083 %) nebulizer solution, Inhale 3 mL (2.5 mg total) by nebulization every 6 (six) hours as needed for wheezing or shortness of breath., Disp: 360 mL, Rfl: 11 blood sugar diagnostic (ONETOUCH VERIO TEST STRIPS) strip, USE DIRECTED TO TEST 3 TIMES A DAY, Disp: 300 strip, Rfl: 5 blood-glucose meter,continuous (DEXCOM G6 ROUSTABOUT PUSHER) misc, Use as direct to monitor sensor glucose., Disp: 1 each, Rfl: 0 blood-glucose sensor (DEXCOM G6 SENSOR) device, USE DIRECTED CHANGE EVERY 10 DAYS, Disp: 9 each, Rfl: 3 blood-glucose transmitter (DEXCOM G6 TRANSMITTER) device, DIRECTED SUBCUTANEOUSLY CHANGE EVERY 3 MONTHS, Disp: 1 each, Rfl: 3 cetirizine (ZyrTEC) 10 mg capsule, Take 1 capsule (10 mg total) by mouth daily., Disp: 30 capsule, Rfl: 11 fluticasone propionate (FLONASE) 50 mcg/actuation nasal spray, Administer 1 spray into each nostril daily., Disp: 15.8 mL, Rfl: 11 HumaLOG U-100 Insulin 100 unit/mL injection, Use up to 100 units a day per insulin pump DX:E11.9, Disp: 30 mL, Rfl: 11 inhalational spacing device (AEROCHAMBER MV) spacer, Use as instructed, Disp: 1 each, Rfl: 0 insulin syringe-needle U-100 1/2 mL 31 gauge x 15/64 syringe, Use as directed to give insulin injections 5 times daily, Disp: 200 each, Rfl: 6 labetaloL (NORMODYNE) 100 mg tablet, Take 1 tablet (100 mg total) by mouth 3 (three) times a day., Disp: , Rfl: levothyroxine (SYNTHROID, LEVOTHROID) 25 MCG tablet, Take 1 tablet (25 mcg total) by mouth in the morning., Disp: 90 tablet, Rfl: 3 meclizine (ANTIVERT) 25 mg tablet, Take 1 tablet (25 mg total) by mouth 4 (four) times a day as needed., Disp: , Rfl: omeprazole (PriLOSEC) 40 mg capsule, Take by mouth daily., Disp: , Rfl: ondansetron ODT (ZOFRAN ODT) 4 mg disintegrating tablet, Dissolve 1 tablet (4 mg total) on tongue every 8 (eight) hours as needed for nausea or vomiting., Disp: 20 tablet, Rfl: 0 ONETOUCH DELICA PLUS LANCET 33 gauge misc, Checking daily, Disp: 100 each, Rfl: 3 ONETOUCH VERIO METER misc, New meter, Disp: 1 each, Rfl: 0 pen needle, diabetic (BD KATLYN 2ND GEN PEN NEEDLE) 32 gauge x 5/32 needle, Use as directed to give insulin 5 times daily., Disp: 200 each, Rfl: 7 vit calc,iron,folic ( VITAMIN ORAL), Take 1 tablet by mouth in the morning., Disp: , Rfl: STRENSIQ 80 mg/0.8 mL solution, , Disp: , Rfl: SYMBICORT 160-4.5 mcg/actuation inhaler, Inhale 2 puffs in the morning and 2 puffs before bedtime., Disp: 10.2 g, Rfl: 11 Vitals: 05/16/23 1033 BP: 131/86 Pulse: 74 SpO2: 99% Weight: 84.8 kg (187 lb) Height: 165.1 cm (5' 5 ) ALLERGIES Reviewed with patient. Hydrocortisone, Ciprofloxacin, Keflex [cephalexin], Macrobid [nitrofurantoin monohyd/m-cryst], Metformin, and Victoza 2-ricki [liraglutide] FAMILY HISTORY Family History Problem Relation Age of Onset Cancer Mother Diabetes Mother Hypertension Mother Arthritis Mother Breast cancer Mother Depression Mother Hyperlipidemia Mother Diabetes Father Arthritis Father Depression Father Heart disease Father Hypertension Father Hyperlipidemia Father Depression Sister Depression Brother Hypertension Brother Depression Maternal Grandmother Hypertension Maternal Grandmother Stroke Maternal Grandmother Tuberculosis Maternal Grandmother Hyperlipidemia Maternal Grandmother Heart disease Maternal Grandmother Diabetes Maternal Grandmother Depression Maternal Grandfather Hypertension Maternal Grandfather Diabetes Paternal Grandmother Heart disease Paternal Grandmother Hypertension Paternal Grandmother Hyperlipidemia Paternal Grandmother Stroke Paternal Grandmother Tuberculosis Paternal Grandmother Hypertension Paternal Grandfather SOCIAL HISTORY: Social History Socioeconomic History Marital status: Single Spouse name: Not on file Number of children: Not on file Years of education: Not on file Highest education level: Not on file Occupational History Not on file Tobacco Use Smoking status: Never Smokeless tobacco: Never Vaping Use Vaping Use: Never used Substance and Sexual Activity Alcohol use: No Alcohol/week: 0.0 standard drinks of alcohol Comment: rarely Drug use: No Sexual activity: Yes Partners: Male control/protection: None Other Topics Concern Not on file Social History Narrative Not on file Social Determinants of Health Financial Resource Strain: Not on file Food Insecurity: No Food Insecurity (12/25/2022) Hunger Screening Food Insecurity - Worry: Never True Food Insecurity - Inability: Never True Transportation Needs: Not on file Physical Activity: Not on file Stress: Not on file Social Connections: Not on file Interpersonal Safety: Not on file TRAVEL HISTORY: Denies recent travel. ROS: Review of Systems Constitutional: Negative for chills, fatigue and fever. Respiratory: Negative for cough, shortness of breath and wheezing. Cardiovascular: Negative for chest pain/discomfort. All other systems are reviewed and are negative except as noted. PHYSICAL EXAM Vital signs BP 131/86 Pulse 74 Ht 165.1 cm (5' 5 ) Wt 84.8 kg (187 lb) LMP 04/23/2023 SpO2 99% BMI 31.12 kg/m Physical Exam Vitals and nursing note reviewed. Constitutional: Appearance: Normal appearance. She is obese. Cardiovascular: Heart sounds: Normal heart sounds. Pulmonary: Breath sounds: Normal breath sounds. Musculoskeletal: Cervical back: Neck supple. Skin: General: Skin is warm and dry. Neurological: Mental Status: She is alert and oriented to person, place, and time. Psychiatric: Mood and Affect: Mood normal. Behavior: Behavior normal. Assessment: Neurological alert and oriented LAB RESULTS: Lab Results Component Value Date CO2 24 12/26/2022 Lab Results Component Value Date TSH 0.60 12/26/2022 T3, free 3.49 05/20/2020 IMAGING/PFT EDUCATION: No results found. Pulmonary function test Complete PFT w/ BD (Spirometry (Flow Volume Loop) pre/post short acting bronchodilator w/ DLCO (diffusion study) and Lung Volume) Patient gave good effort in data is reproducible Normal spirometry without any significant obstructive or restrictive defect. Lung volumes are normal Diffusion capacity is normal Please correlate with clinical and radiographic data DATA: Data card was available for PAP usage data download. PAP compliance is satisfactory. AutoPAP: 8-15 Titration: 07/2015 PS10/2014 w/ AHI of 13 DME: [facility] Reviewed Download with patient: PAP data card download 04/25/23 - 05/15/23 Device: AirSense 11 AutoSet Pressure: 8-15 Percent days with device use =71% Average use: 7 hours40 minutes per day Percent days with use >=4 hours: 71% Average AHI = 2.0 Average time in large leak/day = min seconds 95th percentile leak = 7.8L/min IMPRESSION August was seen today for sleep apnea and asthma. Diagnoses and all orders for this visit: BUTCH (obstructive sleep apnea) - PAP Mask and Supplies [id number] deficiency ([facility]) Mild intermittent asthma without complication Class 1 obesity with body mass index (BMI) of 31.0 to 31.9 in adult, unspecified obesity type, unspecified whether serious comorbidity present CPAP use counseling BUTCH with adherence to nocturnal ventilatory support on a nightly basis. Obesity Body mass index is 31.12 kg/m . Asthma appears without current exacerbation Hypertension PLAN Discussed diagnosis, its evaluation, treatment and usual course. All questions answered. Educational material distributed. Orders Placed This Encounter Procedures PAP Mask and Supplies Scheduling Instructions: Length of Need: 12 months -Full Face Interface1/3mos -Full Face Cushion 1/mo -Nasal Cushion 2/mo, -Nasal Mask 1/3mos -Pillows 2/mo -Htd Tubing 1/3mos -Headgear 1/6mos -Chin Strap1/6mos -Non-Disposable Filter1/6mos -Disposable Filter2/mo -Water Chamber1/6mos -Std Tubing 1/3 mos -Add heat humidification with tubing Order Specific Question: Please specify Answer: PAP Mask and Supplies Order Specific Question: The face to face evaluation was performed on Answer: 05/16/2023 Orders Placed or Reconciled This Encounter Medications STRENSIQ 80 mg/0.8 mL solution Continue Symbicort and PRN use of Albuterol. Continue APAP 8-15 cm H20 pressure. New mask and supplies as needed. Any age appropriate or routine screening per PCP. Follow up in 6 Months time. If her condition should change prior to this she is encouraged to give our office a call. EDUCATION: Driving precautions were reviewed. I advised the patient not to drive if sleepy, and to dross puller if sleepiness occurs while driving. Above plan as discussed with the patient who acknowledged understanding and agreement. Health risks associated with untreated BUTCH were discussed (cardiopulmonary, cerebrovascular, and anesthesia/sedative-related). CC: MD Dena CATALAN [facility] Office: [phone] 3:45 PM on 05/16/2023 This note is dictated with the use of M*Modal.Please note that this dictation was completed with computer voice recognition software. Quite often unanticipated grammatical, syntax, homophones, and other interpretive errors are inadvertently transcribed by the computer software. Please disregard these errors. Please excuse any errors that have escaped final proofreading. JOURDAN Ramírez 05/16/23 1545 documented in this encounter [facility] 05-16-2023 Instructions JOURDAN Ramírez - 05/16/2023 10:15 AM EST If you re looking for general health and wellness resources, please visit [email or web address] documented in this encounter [facility] 05-01-2023 Note Pt. cancelled PT karen atment session on 05/01/23. Per first front ventilator staff, pt. states she has COVID-19. [facility] 04-12-2023 Note Spoke with client an d will be doing video sessions due to having a hard time being seen in person. Clinician will continue to monitor progress. Kindly, Zahraa Kate [facility] 12-28-2022 Note Aida Dunn is a ple asant insulin dependent diabetic (insulin pump) previously evaluated for orthostatic intolerance (OI) consistent with an autonomic neuropathy/ postural orthostatic tachycardia syndrome (POTS)) at our [facility]. She has two children, 5 and 2 years. Chief Complaint: Telehealth Audio/video Visit She was last seen several months ago. Hypertension. We increased the labetalol to bid. Now the BP is stable. No dizziness or lightheaded. She notes a wear off mid day. We therefore will increase the propranolol 8am, 12noon, 8pm. Review of Systems Cardiovascular: Negative for near-syncope and syncope. Musculoskeletal: Negative for falls. Neurological: Positive for dizziness, loss of balance, numbness, paresthesias and vertigo. Negative for light-headedness. Hbga1c 6.5% Dizziness/ c spine problems. MRI. TO go PT Psychiatric/Behavioral: Negative for depression. The patient is nervous/anxious. Objective Constitutional: Appearance: Healthy appearance. Not in distress. Neurological: General: No focal deficit present. Mental Status: Alert and oriented to person, place and time. Assessment/Plan The primary encounter diagnosis was Postural orthostatic tachycardia syndrome (POTS). Diagnoses of Supraventricular tachycardia (CMS/HCC) and Essential hypertension were also pertinent to this visit. Date of Telehealth Visit: 12/28/2022 Chief Complaint Patient presents with Telehealth Audio/video Visit The patient was notified that using republican telecommunication application (e.g., MarkITx) is not HIPPA compliant and may carry some privacy risks. Yes The visit was conducted [id number] with the use of audio and video technology [employer] between patient and provider for a virtual visit. Verbal consent to provide and bill this service was obtained on 12/28/2022. No signature was obtained due to the COVID-19 pandemic. Patient Location: Patient Home I spent 15 minutes of total time on the day of the visit. This time was spent preparing for the visit, obtaining and reviewing any outside history/data, taking a history, performing an exam/evaluation, counseling and educating patient/family about the diagnosis and plan, performing medical decision making, referring to and communicating with other health care referrals, independently interpreting results and documenting in the EMR, and coordinating care. Please see the additional documentation in this note for specific details. 1. Postural orthostatic tachycardia syndrome (POTS) stable 2. Supraventricular tachycardia (CMS/HCC) - labetalol (Normodyne) 100 mg tablet; Take 1 tablet (100 mg) by mouth in the morning, afternoon, and at bedtime. Dispense: 270 tablet; Refill: 3 Increase dose to tid 3. Essential hypertension Stable. 120/70mmhg reported. Rarely high. [facility] 08-28-2022 Note Aida Dunn is a ple asant 32 year old insulin dependent diabetic previously evaluated for orthostatic intolerance (OI) consistent with postural orthostatic tachycardia syndrome (POTS) due to an autonomic diabetic neuropathy in the [facility] in the [facility] at the [facility]. She has history of hypertension. Chief Complaint: Increase in symptoms. Vision blurry. Intermittent. Causes OI. BS higher. Vision exam OK. Insulin adjusted. She has 18 month and 4 year old children. Review of Systems Eyes: Positive for blurred vision. Cardiovascular: Positive for near-syncope. Negative for palpitations and syncope. Neurological: Positive for dizziness, headaches, light-headedness and vertigo. Objective Constitutional: Appearance: Healthy appearance. Not in distress. Neurological: Mental Status: Alert and oriented to person, place and time. Lab Review: Comprehensive metabolic panel Order: [id number] Ref Range & Units 1 mo ago Sodium 134 - 146 mmol/L 136 Potassium, Bld 3.5 - 5.0 mmol/L 4.0 Chloride 98 - 109 mmol/L 104 CO2 22 - 32 mmol/L 23 Anion gap 5 - 15 mmol/L 9 BUN 5 - 23 mg/dL 15 Creatinine 0.40 - 1.00 mg/dL 0.68 Comment: METHOD TRACEABLE TO IDMS STANDARD Glucose 65 - 99 mg/dL 146 High Calcium 8.5 - 10.5 mg/dL 9.6 Total Protein 6.0 - 8.0 g/dL 7.6 Albumin 3.2 - 5.3 g/dL 4.2 Alkaline Phosphatase 39 - 130 U/L 46 AST 0 - 41 U/L 23 ALT 0 - 31 U/L 39 High Total bilirubin 0.3 - 1.2 mg/dL 0.3 eGFR (CKD-EPI)non-race dependent >59 ml/min/1.73sq.m >90 Assessment/Plan The primary encounter diagnosis was Postural orthostatic tachycardia syndrome (POTS). Diagnoses of Essential hypertension and Diabetic autonomic neuropathy associated with type 2 diabetes mellitus (CMS/HCC) were also pertinent to this visit. Date of Telehealth Visit: 08/28/2022 No chief complaint on file. The patient was notified that using 3rd republican telecommunication application (e.g., MarkITx) is not HIPPA compliant and may carry some privacy risks. Yes The visit was conducted [id number] with the use of audio and video technology [employer] between patient and provider for a virtual visit. Verbal consent to provide and bill this service was obtained on 08/28/2022. No signature was obtained due to the COVID-19 pandemic. Patient Location: Patient Home I spent 15 minutes of total time on the day of the visit. This time was spent preparing for the visit, obtaining and reviewing any outside history/data, taking a history, performing an exam/evaluation, counseling and educating patient/family about the diagnosis and plan, performing medical decision making, referring to and communicating with other health care referrals, independently interpreting results and documenting in the EMR, and coordinating care. Please see the additional documentation in this note for specific details. 1. Postural orthostatic tachycardia syndrome (POTS) Continue labetalol. 2. Essential hypertension - losartan (Cozaar) 50 mg tablet; Take 1 tablet (50 mg) by mouth in the morning. Dispense: 30 tablet; Refill: 11 - monitor BP and HR 3. Diabetic autonomic neuropathy associated with type 2 diabetes mellitus ([facility]/HCC) Rtc 6-8 weeks. [facility] 09-25-2021 Evaluation note Encounter Date Diagnosis Assessment Notes September, Cough (ICD-10 - R05.9) September, COVID-19 (ICD-10 - U07.1) Drink plenty fluids, get plenty of rest. Wear a mask for the next 5 days when you are out and about follow-up with your family physician if no improvement in 2 to 3 days [employer]onnaBe Other Evaluation + Plan note Future Appointments Appointment Date:01/30/2023 08:00:00 AM Scheduled Provider:Zahraa Iqbal Location:[facility] Appointment Type:BH Therapy 60 [facility] evaluation + Plan note Future Appointments Appointment Date:03/27/2023 08:00:00 AM Scheduled Provider:Zahraa Iqbal Location:[facility] Appointment Type:BH Therapy 60 Appointment Date:04/17/2023 02:00:00 PM Scheduled Provider: Location:FT.SPEECH Appointment Type:Autism Assessment (FT) [facility] evaluation + Plan note Future Appointments Appointment Date:04/03/2023 09:00:00 AM Scheduled Provider:Zahraa Iqbal Location:[facility] Appointment Type:BH Therapy 60 Appointment Date:04/17/2023 02:00:00 PM Scheduled Provider: Location:FT[facility]SPEECH [facility]ments Appointment Date:05/01/2023 11:45:00 AM Scheduled Provider: Location:FT.PHYSICAL [place] Appointment Type:PT 45 (FT) Appointment Date:05/10/2023 01:00:00 PM Scheduled Provider: Location:[place] Appointment Type:PT 45 (FT) Appointment Date:05/15/2023 11:45:00 AM Scheduled Provider: Location:[place]ICAL [place] Appointment Type:PT 45 (FT) Appointment Date:05/22/2023 11:30:00 AM Scheduled Provider: Location:.[place] Appointment Type:PT Re-Eval 45 (FT) Appointment Date:05/29/2023 11:45:00 AM Scheduled Provider: Location:.[place] Appointment Type:PT 45 (FT) Appointment Date:06/05/2023 11:45:00 AM Scheduled Provider: Location:.[place] Appointment Type:PT Re-Eval 45 (FT) [facility] evaluation + Plan note Future Appointments Appointment Date:05/15/2023 11:45:00 AM Scheduled Provider: Location:.[place] Appointment Type:PT 45 (FT) Appointment Date:05/22/2023 11:30:00 AM Scheduled Provider: Location:.[place] Appointment Type:PT Re-Eval 45 (FT) Appointment Date:05/29/2023 11:45:00 AM Scheduled Provider: Location:.[place] Appointment Type:PT 45 (FT) Appointment Date:05/29/2023 03:00:00 PM Scheduled Provider:Zahraa Iqbal Location:[facility] Appointment Type:BH Video Visit Therapy 60 Appointment Date:06/05/2023 11:45:00 AM Scheduled Provider: Location:.[place] Appointment Type:PT Re-Eval 45 (FT) Appointment Date:06/26/2023 04:00:00 PM Scheduled Provider:Zahraa Iqbal Location:[facility]ments Appointment Date:05/29/2023 03:00:00 PM Scheduled Provider:Zahraa Iqbal Location:[facility] Appointment Type:BH Video Visit Therapy 60 Appointment Date:06/05/2023 11:45:00 AM Scheduled Provider: Location:.[place] Appointment Type:PT Re-Eval 45 (FT) Appointment Date:06/26/2023 04:00:00 PM Scheduled Provider:Zahraa Iqbal Location:[facility] Appointment Type:BH Therapy 60 [facility] evaluation + Plan note Future Appointments Appointment Date:06/05/2023 11:45:00 AM Scheduled Provider: Location:FT.[place]ICAL [place] Appointment Type:PT Maite-Radha 45 () Appointment Date:06/26/2023 04:00:00 PM Scheduled Provider:Zahraa Iqbal Location:[facility] Appointment Type:BH Therapy 60 [facility] evaluation + Plan note Future Appointments Appointment Date:09/05/2023 02:00:00 PM Scheduled Provider:Zahraa Iqbal Location:[facility] Appointment Type:BH Therapy 60 [facility] evaluation note* Diagnosis BUTCH (obstructive sleep apnea)- Primary Obstructive sleep apnea (adult) (pediatric) Carra-7-vimhcugacsw deficiency ([facility] Mssac-8-wxgtsammujw deficiency Mild intermittent asthma without complication Class 1 obesity with body mass index (BMI) of 31.0 to 31.9 in adult, unspecified obesity type, unspecified whether serious comorbidity present CPAP use counseling [facility] Diagnosis Mixed hyperlipidemia Type 2 diabetes mellitus with hyperglycemia, with long-term current use of insulin ([facility]) [facility]* Diagnosis Type 2 diabetes mellitus with hyperglycemia, with long-term current use of insulin ([facility]) 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 [facility]* Diagnosis Lumbar spondylosis- Primary Lumbosacral spondylosis without myelopathy Disorder of sacrum Disorders of sacrum Lumbar radiculopathy Thoracic or lumbosacral neuritis or radiculitis, unspecified [facility]* Diagnosis Type 2 diabetes mellitus with hyperglycemia, with long-term current use of insulin ([facility])- Primary At risk for bone density loss Other specified conditions influencing health status Other specified disorders of bone density and structure, other site 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 Nodular goiter Unspecified nontoxic nodular goiter Primary hypothyroidism Unspecified hypothyroidism Mixed hyperlipidemia [facility] - Reported* Type Description Date Medical History Diabetes Medical History Hypertension Medical History Tachycardia Medical History Hypothyroidism Medical History Depression with anxiety Medical History Fibromyalgia Surgical History rhinoplasty 2009 Surgical History tonsillectomy and adenoidectomy Surgical History c-sections Hospitalization History see above surgical histo ry [facility] Other Hospital course Narrative No data available for this section [facility] Hospital Discharge instructions No data available for this section [facility] InstructionsNot on filedocumented in this encounter [facility] filedocumented in [facility] encounter [facility] filedocumented in this encounter [facility] No data available for this section [facility] reason for referral (narrative)* Consultation (Routine) - Pending Review Specialty Diagnoses / Procedures Referred By Kieran curran Referred To Contact Endocrinology, Diabetes & Metabolism Diagnoses Type 2 diabetes mellitus with hyperglycemia, with long-term current use of insulin ([facility]) Renetta Cabrera MD [address] [place] [address] [facility] [address] [facility] [place] [address] Referral ID Status Reason Start Date Expiration Date Visits Requested Visits Authorized [id number] Pending Review Specialty Services Required 07/17/2023 07/16/2024 1 1 [email or web address] System Summary Purpose Family History No Family History Records FoundNo Family History Records FoundNo Family History Records FoundNo Family History Records FoundNo Family History Records Found No data available for this section No data available for this section No data available for this section No data available for this section No data available for this section No data available for this section No Family History Records Found No data available for this section No Family History Records Found No data available for this section No Family History Records FoundNo Family History Records FoundNo Family History Records FoundNo Family History Records Found Advance Directives No Advanced Directives Records FoundLatest Code Status on File Code Status Date Activated Date Inactivated Comments Full Code 01/14/2018 8:04 PM 01/17/2018 5:21 PM Latest Code Status on File Code Status Date Activated Date Inactivated Comments Full Code 01/14/2018 8:04 PM 01/17/2018 5:21 PM Reason for Referral Specialty Diagnoses / Procedures Referred By Kieran curran Referred To Contact Rehabilitation Diagnoses Lumbar spondylosis Disorder of sacrum Lumbar radiculopathy Amanda Simpson PA-C [address] [place] [address] Referral ID Status Reason Start Date Expiration Date Visits Requested Visits Authorized [id number] Pending Review Specialty Services Required 07/11/2023 07/10/2024 1 1 Additional Source Comments INFORMATION SOURCE (unrecogn ized section and content) DATE CREATED AUTHOR 11/07/2017 [facility] DATE CREATED AUTHOR AUTHOR'S ORGANIZ ATION 09/21/2018 [facility] DATE CREATED AUTHOR AUTHOR'S ORGANIZ ATION 02/19/2019 [facility] DATE CREATED AUTHOR AUTHOR'S ORGANIZ ATION 01/14/2020 [facility] DATE CREATED AUTHOR AUTHOR'S ORGANIZ ATION 03/06/2022 [facility] DATE CREATED AUTHOR AUTHOR'S ORGANIZ ATION 06/22/2023 [facility] DATE CREATED AUTHOR AUTHOR'S ORGANIZ ATION 08/19/2023 [facility] DATE CREATED AUTHOR AUTHOR'S ORGANIZ ATION 11/02/2023 [facility] DATE CREATED AUTHOR AUTHOR'S ORGANIZ ATION 12/04/2023 [facility] DATE CREATED AUTHOR AUTHOR'S ORGANIZ ATION 12/20/2023 [facility] DATE CREATED AUTHOR AUTHOR'S ORGANIZ ATION 12/21/2023 [facility] REASON FOR VISIT (unrecogniz ed section and content) Reason Comments Sleep Apnea Asthma CXR: 3PFT: 03/02/2023 Reason Comments Med Refill Reason Onset Date Comments Med Refill 05/22/2023 Reason Comments Back Pain Patient Care team informatio n (unrecognized section and content) Bagel Maker Relationship Specialty Start Date End Date Blanco Chavez MD [address] [facility] [place] [address] PCP - General Family Medicine 04/08/18 Bagel Maker Relationship Specialty Start Date End Date Blanco Chavez MD [address] [facility] [place] [address] PCP - General Family Medicine 04/08/18 Bagel Maker Relationship Specialty Start Date End Date Blanco Chavez MD [address] [facility] [place] [address] PCP - General Family Medicine 04/08/18 Bagel Maker Relationship Specialty Start Date End Date Blanco Chavez MD [address] [facility] [place] [address] PCP - General Family Medicine 04/08/18 Bagel Maker Relationship Specialty Start Date End Date Blanco Chavez MD [address] [facility] [place] [address] PCP - General Family Medicine 04/08/18 Bagel Maker Relationship Specialty Start Date End Date Blanco Chavez MD [address] [facility] [place] [address] PCP - General Family Medicine 04/08/18 Bagel Maker Relationship Specialty Start Date End Date Blanco Chavez MD [address] [facility] [place] [address] PCP - General Family Medicine 04/08/18 FOR RECORDS PERTAINING TO PATIENTS WHO ARE OR HAVE BEEN ENROLLED IN A CHEMICAL DEPENDENCY/SUBSTANCEABUSE PROGRAM, SOME INFORMATION MAY BE OMITTED. This clinical summary was aggregated from multiple sources. Caution should be exercised in using it in the provision of clinical care. This summary normalizes information from multiple sources, and as a consequence, information in this document may materially change the coding, format and clinical context of patient data. In addition, data may be omitted in some cases. CLINICAL DECISIONS SHOULD BE BASED ON THE PRIMARY CLINICAL RECORDS. [facility] provides no warranty or guarantee of the accuracy or completeness of information in this document.
[2024-01-05 10:12] LABS: Age Gdln ACOG Testing Note (.); HPV Aptima Negative (Negative); IGP, Aptima HPV, rfx 16/18,45 Note (.)
== END 2024-01-01 20:00 | disposition home or self-care (01) ==
LOC: LAB 19:59
PROVIDERS: PCP Family Medicine; Visit Provider Obstetrics & Gynecology
DX: Z01.419 Encounter for gynecological examination (general) (routine) without abnormal findings (principal)
CPT/HCPCS: 87624; 88175

== ENCOUNTER 2025-01-07 14:42 | Outpatient (REF) | payer MEDICARE, MEDICAID, SELFPAY ==
--- OUTSIDE RECORDS SUMMARY | 2024-10-31 07:00 | XMS_ITS ---
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 Reconditioner Name Role Phone Senait Saundra Unavailable [phone] REASON FOR VISIT Extraction #19 Social History Sex Assigned At : Social History Observation Description Sex Assigned At Female Encounters Encounter Location Date Provider Diagnosis [facility] [address] [place] [id number] 10/31/2024 Saundra Sapp Plan Of Treatment Next Appt Details Provider Name:Saundra Sapp , 04/02/2025 10:45:00 AM, [address], [place], [phone], Progress Notes * AugustDOB:1990 ( 34 yo F)Acc No.[id number]:10/31/2024 Patient: Get WALLACE August Provider: Shyam Sapp DMD :1990 A ge:34 Y S ex:Female Date:10/31/2024 Address:[address] [place], [place] [id number] Subjective: * Chief Complaints: * 1 . Extraction #19. * Medical History: Objective: * Vitals: Assessment: Plan: * Treatment: * Billing Information: * Visit Code: * Procedure Codes: * Electronic signature of Danay Sapp DMD on 01/07/2025 at 02:47 PM EDT Sign off status: Pending * Provider: Shyam Sapp DMD Date: 10/31/2024 Generated for Devin marie/Marina/eTransmitting on: 01/07/2025 02:47 PM EDT
--- OUTSIDE RECORDS SUMMARY | 2025-01-07 14:00 | XMS_ITS | Encounter Summary ---
Author Organization [facility] Address [address] [place] [address] Care Team Providers Care Workers Compensation Analyst Name Role Phone Blanco Gutierrez MD Primary Care Provider [phone] Reason for Visit * Reason Comments Well Women Visit Encounter Details Date Type Department Care Team (Late st Contact Info) Description 01/07/2025 2:00 PM EDT Office Visit VERONICA HERZOG [address] [place] [phone] Ankit Wilson DO [address] [place], [facility] Well woman exam with routine gynecological exam; Vaginal discharge; Family history of breast cancer in mother Social History Tobacco Use Types Packs/Day Years Used Date Smoking Tobacco: Never Smokeless Tobacco: Never Alcohol Use Standard Drinks/Week Comments Never 0 (1 standard drink = 0.6 oz pur e alcohol) Caffeine: > 4 cups/day B1300 Health Literacy Answer Date Recor ded How often do you need to hav e someone help you when you read instructions, pamphlets, or other written material from your doctor or pharmacy? Never 01/31/2024 Humiliation, Afraid, Rape, and Kick questionnair e Answer Date Recorded Within the last year, have y ou been afraid of your partner or ex-partner? No 01/31/2024 Emotionally Abused Not on file 01/31/2024 Physically Abused Not on file 01/31/2024 Sexually Abused Not on file 01/31/2024 Social Connection and Isolation Panel [NHANES] A nswer Date Recorded In a typical week, how many times do you talk on the phone with family, friends, or neighbors? Once a week 01/31/2024 How often do you get together with friends or re latives? Never 01/31/2024 How often do you attend amish or congregational serv ices? Never 01/31/2024 Do you belong to any clubs o r organizations such as amish groups, unions, fraternal or athletic groups, or school groups? No 01/31/2024 How often do you attend meet ings of the clubs or organizations you belong to? Never 01/31/2024 Are you , , di vorced, , never , or living with a partner? Never 01/31/2024 AUDIT-C Answer Date Recorded Q1: How often do you have a drink containing alcohol? Never 04/10/2023 Q2: How many drinks containi ng alcohol do you have on a typical day when you are drinking? Patient does not drink Q3: How often do you have si x or more drinks on one occasion? Never 04/10/2023 Overall Financial Resource Strain (CARDIA) Answe r Date Recorded How hard is it for you to pa y for the very basics like food, housing, medical care, and heating? Not hard at all 01/31/2024 [facility] - Occupational Stress Questionnaire Answer Date Recorded Do you feel stress - tense, restless, nervous, or anxious, or unable to sleep at night because your mind is troubled all the time - these days? Not at all 01/31/2024 Exercise Vital Sign Answer Date Recorde d On average, how many days pe r week do you engage in moderate to strenuous exercise (like a brisk walk)? 0 days 01/31/2024 On average, how many minutes do you engage in exercise at this level? 0 min 01/31/2024 Hunger Vital Sign Answer Date Recorded Within the past 12 months, y ou worried that your food would run out before you got the money to buy more. Never true 01/31/20 24 Within the past 12 months, t he food you bought just didn't last and you didn't have money to get more. Never true 01/31/2024 PRAPARE - Transportation Answer Date Re corded In the past 12 months, has l ack of transportation kept you from medical appointments or from getting medications? No 01/12 In the past 12 months, has l ack of transportation kept you from meetings, work, or from getting things needed for daily living? No 01/31/2024 Housing Stability Vital Sign Answer Fer e Recorded In the last 12 months, was t here a time when you were not able to pay the mortgage or rent on time? No 04/10/2023 Number of Places Lived in the Last Year Not on f ile 04/10/2023 In the last 12 months, was t here a time when you did not have a steady place to sleep or slept in a intermediate (including now)? No 04/10/2023 Housing Stability Vital Sign Answer Fer e Recorded In the last 12 months, was t here a time when you were not able to pay the mortgage or rent on time? No 01/31/2024 Number of Times Moved in the Last Year Not on fi le 01/31/2024 At any time in the past 12 m [facility], were you homeless or living in a intermediate (including now)? No 01/31/2024 Comments No Sex and Gender Information Value Date Recorded Sex Assigned at Not on file Legal Sex Female 6:36 PM EDT Gender Identity Not on file Sexual Orientation Not on file documented as of this encounter Last Filed Vital Signs Vital Sign Reading Time Taken Comments Blood Pressure 122/82 01/07/2025 2:03 PM EDT Pulse - - Temperature - - Respiratory Rate - - Oxygen Saturation - - Inhaled Oxygen Concentration - - Weight 80.9 kg (178 lb 4 oz) 01/07/2025 2:03 PM EDT Height - - Body Mass Index 29.66 12/02/2024 10:47 AM EDT documented in this encounter Plan of Treatment Upcoming Encounters Date Type Department Care Team (Late st Contact Info) Description 01/15/2025 1:40 PM EDT Clinical Support VERONICA HERZOG [address] [place] [address] [place] [address] 01/28/2025 9:00 AM EDT Office Visit [facility] [address] [place] [phone] Saundra Bey, CONVENTIONAL UNDERWRITER-SENIOR BUSINESS DEVELOPMENT MANAGER [address] [place], [place] [phone] 04/16/2025 10:30 AM EST Office Visit [facility] [address] [place] [address] Blanco Gutierrez MD [address] [place] [address] 01/12/2026 2:00 PM EDT Procedure Visit VERONICA [place] [facility] [address] [place] [phone] Ankit Wilson DO [address] [place] [address] Scheduled Orders Name Type Priority Associated Diagnoses Orde r Schedule Pap Smear Pathology and Cytology Routine Well woman exam with routine gynecological exam Ordered: 01/07/2025 HPV DNA probe, amplified Microbiology Routine Well woman exam with routine gynecological exam Ordered: 01/07/2025 SURESWAB(R) ADVANCED VAGINITIS PLUS, TMA Pathology and Cytology Routine Vaginal discharge Ordered: 01/07/2025 CHLAMYDIA TRACHOMATIS (GENITO/STI) Lab Routine Vaginal discharge Ordered: 01/07/2025 Neisseria gonorrhea DNA probe, direct Lab Routine Vaginal discharge Ordered: 01/07/2025 Bilateral screening mammogram Imaging Routine Family history of breast cancer in mother Expected: 01/07/2025 (Approximate), Expires: 03/09/2026 documented as of this encounter Goals Goal Patient Goal Type Associated Problems Recent Progress Patient-Stated? Author Record Cardiac Symptoms Daily Care Plan Cardiac Symptom Monitoring No Ankit Wilson DO Schedule Cardiology Consult Care Plan Needs Cardiology Consult No Ankit Wilson, DO Record Vitals Daily Care Plan Vitals Monitoring No Ankit Wilson DO documented as of this encounter Procedures Procedure Name Priority Date/Time Associated Diagnosis Comments PAP SMEAR Routine 01/01/2024 12:00 AM EDT documented in this encounter Results * Pap Smear (01/01/2024 12:00 AM EDT) Swab Cervical swab / Unknown Ankit Wilson DO LAB CYTOLOGY ORDERABLES Final Re sult EXTERNAL LAB documented in this encounter Visit Diagnoses Diagnosis Well woman exam with routine gynecological exam Routine gynecological examination Vaginal discharge Leukorrhea, not specified as infective Family history of breast cancer in mother Family history of malignant neoplasm of breast documented in this encounter Additional Health Concerns Active Problems Noted Date Diagnosed Date Cardiac Symptom Monitoring 01/07/2023 Needs Cardiology Consult 01/07/2023 Vitals Monitoring 01/07/2023 documented as of this encounter Care Teams Workers Compensation Analyst Relationship Specialty Start Date End Date Blanco Gutierrez MD [address] [place] [address] PCP - General Family Medicine 06/05/23 documented as of this encounter
--- OUTSIDE RECORDS SUMMARY | 2025-01-07 14:46 | XMS_ITS | Encounter Summary ---
Author Organization [facility] Address [id number] [address] [place] [address] Care Team Providers Care Ophthalmic Medical Technologist Name Role Phone Blanco Gutierrez MD Primary Care Provider [phone] Reason for Visit * Reason Comments Med Refill Encounter Details Date Type Department Care Team (Late st Contact Info) Description 06/07/2020 Refill [facility] [address] [phone] Salvatore Connors, DO [address] [phone] Social History Tobacco Use Types Packs/Day Years Used Date Smoking Tobacco: Never Smokeless Tobacco: Never Alcohol Use Standard Drinks/Week Comments No 0 (1 standard drink = 0.6 oz pur e alcohol) rarely Childcare Answer Date Recorded Childcare Unknown 10/23/2018 Employment Answer Date Recorded Employment Unknown 10/23/2018 Purpose - Life Answer Date Recorded Purpose and direction in life Unknown Comments No Sex and Gender Information Value Date Recorded Sex Assigned at Female 10/28/2021 12:44 PM EDT Legal Sex Female 11:43 AM EDT Gender Identity Female 10/28/2021 12:44 PM EDT Sexual Orientation Straight 10/28/2021 12 :44 PM EDT COVID-19 Exposure Response Date Recorded In the last month, have you been in contact with someone who was confirmed or suspected to have Coronavirus / COVID-19? No / Unsure 05/20/2020 10:55 AM EST documented as of this encounter Plan of Treatment Upcoming Encounters Date Type Department Care Team (Late st Contact Info) Description 01/30/2025 10:45 AM EDT Office Visit [facility], A Department of [facility] [address] [facility] [address] [place] [address] Bernardino Cabrera MD [address] [facility] [place] [address] 02/11/2025 1:45 PM EDT Office Visit [facility] [address] [place] [address] Dena Fernandez, TABLE MAKER-SPECIMEN BOSS [address] [facility], [address] [place], [place] [phone] 03/12/2025 10:00 AM EDT Office Visit [facility] [address] [facility] [address] [place] [address] Maggie Beal MD [address] [facility] [address] [place], [place] [phone] documented as of this encounter Visit Diagnoses Not on filedocumented in this encounter Additional Health Concerns Infection Onset Date Last Indicated Resolved Time COVID-19 Rule-Out 08/03/2020 08/03/2020 08/04/2020 4:39 PM EDT COVID-19 Rule-Out 09/30/2020 09/30/2020 09/30/2020 10:19 AM EDT documented as of this encounter Care Teams Ophthalmic Medical Technologist Relationship Specialty Start Date End Date Blanco Gutierrez MD PCP - General Family Medicine 05/31/24 documented as of this encounter
--- OUTSIDE RECORDS SUMMARY | 2025-01-07 14:46 | XMS_ITS | Encounter Summary ---
Author Organization [facility] Address [id number] [address] [place] [address] Care Team Providers Care Theatre Director Name Role Phone Blanco Gutierrez MD Primary Care Provider [phone] Encounter Details Date Type Department Care Team (Late st Contact Info) Description 01/18/2023 [facility]phone [facility] [address] [facility] [address] [place] [phone] Luna Phillip LPN Social History Tobacco Use Types Packs/Day Years Used Date Smoking Tobacco: Never Smokeless Tobacco: Never Alcohol Use Standard Drinks/Week Comments No 0 (1 standard drink = 0.6 oz pur e alcohol) rarely PHQ-2 Answer Date Recorded Total Score 0 12/27/2022 Childcare Answer Date Recorded Childcare Unknown 10/23/2018 Employment Answer Date Recorded Employment Unknown 10/23/2018 Hunger Screening Answer Date Recorded Within the past 12 months we worried whether our food would run out before we got money to buy more. Never True 12/25/2022 Within the past 12 months th e food we bought just didn't last and we didn't have money to get more. Never True 12/25/2022 Purpose - Life Answer Date Recorded Purpose and direction in life Unknown Comments No Sex and Gender Information Value Date Recorded Sex Assigned at Female 10/28/2021 12:44 PM EDT Legal Sex Female 11:43 AM EDT Gender Identity Female 10/28/2021 12:44 PM EDT Sexual Orientation Straight 10/28/2021 12 :44 PM EDT documented as of this encounter Miscellaneous Notes * Telephone Encounter - Luna Phillip LPN - 01/18/2023 9:50 AM EDT PT NEEDS RADIOLOGY FOR THE STRENSIQ APPROVAL. * Telephone Encounter - Bernardino Cabrera MD - 01/18/2023 9:50 AM EDT To order the DEXA scan * Telephone Encounter - Luna Phillip LPN - 01/18/2023 9:50 AM EDT WHAT IS THE DX? * Telephone Encounter - Bernardino Cabrera MD - 01/18/2023 9:50 AM EDT Hypophosphatasia * Telephone Encounter - Luna Phillip LPN - 01/18/2023 9:50 AM EDT DX NOT COVERED. * Telephone Encounter - Bernardino Cabrera MD - 01/18/2023 9:50 AM EDT Bone density disorder or vitamin D deficiency. Add the diagnosis to the problem list please. documented in this encounter Plan of Treatment Upcoming Encounters Date Type Department Care Team (Late st Contact Info) Description 01/30/2025 10:45 AM EDT Office Visit [facility] Adult Endocrinology, A Department of [facility] [address] [address] Bernardino Cabrera MD [address] [facility] [place] [address] 02/11/2025 1:45 PM EDT Office Visit [facility] [address] [place] [phone] Dena Fernandez, POINTER HELPER-DRY CLEANING COUNTER CLERK [address] [facility], [address] [place] [address] 03/12/2025 10:00 AM EDT Office Visit [facility] [address] [place] [address] Maggie Beal MD [address] [facility] [address] [place] [address] documented as of this encounter Visit Diagnoses Not on filedocumented in this encounter Additional Health Concerns Assessment Noted Time PHQ-9 Depression Total Score: 0 12/28/19 23 2:41 PM EDT documented as of this encounter Care Teams Theatre Director Relationship Specialty Start Date End Date Blanco Gutierrez MD PCP - General Family Medicine 05/31/24 documented as of this encounter
--- OUTSIDE RECORDS SUMMARY | 2025-01-07 14:46 | XMS_ITS | Encounter Summary ---
Author Organization [facility] Address [address] [place] [address] Care Team Providers Care Nurse Unit Manager Name Role Phone Tevin Weinberg Primary Care Provider [phone] Source Comments In the event this information is protected by the Federal Confidentiality of Alcohol and Drug AbusePatient Records regulations: The Federal rules restrict any use of the information to criminally investigate or prosecute any alcohol or drug abuse patient.[facility] Encounter Details Date Type Department Care Team (Late st Contact Info) Description 05/22/2024 Patient Msg Endocrinology [address] [phone] Irina Haque MD [address] [phone] Social History Tobacco Use Types Packs/Day Years Used Date Smoking Tobacco: Never Smokeless Tobacco: Never Alcohol Use Standard Drinks/Week Comments Not Asked 0 (1 standard drink = 0.6 oz pur e alcohol) Area Deprivation Index Answer Date Harjinder rded National Score (1-100), lower number is lower ri sk 83 04/21/2024 State Score (1-10), lower number is lower risk 7 04/21/2024 Data from: https://www.neighborhoodatlas.medicine.[facility]/. Last address used for calculation [address] 04/21/2024 Comments No Sex and Gender Information Value Date Recorded Sex Assigned at Not on file Legal Sex Female 10:18 AM EST Gender Identity Not on file Sexual Orientation Not on file documented as of this encounter Plan of Treatment Upcoming Encounters Date Type Department Care Team (Late st Contact Info) Description 03/23/2025 12:20 PM EST Office Visit Endocrinology [address] [place] [address] Irina Haque MD [address] [place] [address] 6 month follow up documented as of this encounter Visit Diagnoses Not on filedocumented in this encounter Care Teams Nurse Unit Manager Relationship Specialty Start Date End Date Tevin Weinberg PCP - General Family Medicine 03/18/12 documented as of this encounter
--- OUTSIDE RECORDS SUMMARY | 2025-01-07 14:46 | XMS_ITS | Encounter Summary ---
Author Organization [facility] Address [id number] [address] [place] [address] Care Team Providers Care Scallop Binder Name Role Phone lBanco Gutierrez MD Primary Care Provider Encounter Details Date Type Department Care Team (Late Contact Info) Description 04/14/2020 Orders Only [facility] [address] [phone] Lulu Staley LPN Mild intermittent asthma without complication Social History Tobacco Use Types Packs/Day Years Used Date Smoking Tobacco: Never Smokeless Tobacco: Never Alcohol Use Standard Drinks/Week Comments No 0 (1 standard drink = 0.6 oz pur e alcohol) rarely Childcare Answer Date Recorded Childcare Unknown 10/23/2018 Employment Answer Date Recorded Employment Unknown 10/23/2018 Comments No Sex and Gender Information Value [...] have Coronavirus / COVID-19? No / Unsure 04/09/2020 10:22 PM EST documented as of this encounter Plan of Treatment Upcoming Encounters Date Type Department Care Team ([facility] Contact Info) Description 01/30/2025 10:45 AM EDT [facility] [address] [facility] [address] [place] [phone] Bernardino Cabrera MD [address] [facility] [place] [address] 02/11/2025 1:45 PM EDT Office Visit [facility] [address] [place] [phone] Dena Fernandez TIMBER TRIMMER-MORTGAGE PROCESSOR [address] [facility], [address] [place] [address] 03/12/2025 10:00 AM EDT Office Visit [facility] [address] [facility] [address] [place] [address] Maggie Beal MD [address] [place] [address] documented as of this encounter Procedures Procedure Name Priority Date/Time Associated Diagnosis Comments PULMONARY FUNCTION TEST Routine 04/09/2020 Mild intermittent asthma without complication documented in this encounter Results * Pulmonary function test Spirometry (Flow Volume Loop) w/ DLCO (diffusion study) (04/09/2020) 04/09/2020 us Dena Fernandez TIMBER TRIMMER-MORTGAGE PROCESSOR PFT ORDERABLES Final R esult MANUALLY TRANSCRIBED RESULTS documented in this encounter Visit Diagnoses Diagnosis Mild intermittent asthma without complication documented in this encounter Additional Health Concerns Infection Onset Date Last Indicated Resolved Time COVID-19 Rule-Out 08/03/2020 08/03/2020 08/04/2020 4:39 PM EDT COVID-19 Rule-Out 09/30/2020 09/30/2020 09/30/2020 10:19 AM EDT documented as of this encounter Care Teams Scallop Binder Relationship Specialty Start Date End Date Blanco Gutierrez MD PCP - General Family Medicine 05/31/24 documented as of this encounter
--- OUTSIDE RECORDS SUMMARY | 2025-01-07 14:46 | XMS_ITS | Encounter Summary ---
Author Organization [facility] Address [address] [place] [address] Care Team Providers Care Recreation Therapy Aide Name Role Phone Tevin Weinberg Primary Care Provider [phone] Source Comments In the event this information is protected by the Federal Confidentiality of Alcohol and Drug AbusePatient Records regulations: The Federal rules restrict any use of the information to criminally investigate or prosecute any alcohol or drug abuse patient.[facility] Encounter Details Date Type Department Care Team (Late st Contact Info) Description 06/26/2012 Letters (in) Neurology [address] [place] [address] Luciano Ferreira MD [address] [place] [address] [facility] Social History Tobacco Use Types Packs/Day Years Used Date Smoking Tobacco: Never Smokeless Tobacco: Never Alcohol Use Standard Drinks/Week Comments Not Asked 0 (1 standard drink = 0.6 oz pur e alcohol) Comments Unknown Sex and Gender Information Value Date Recorded Sex Assigned at Not on file Legal Sex Female 10:18 AM EST Gender Identity Not on file Sexual Orientation Not on file documented as of this encounter Progress Notes * Luciano Ferreira - 06/26/2012 12:00 AM EST June 28, 2012 Tevin Weinberg M.D. [address] [place] [address] RE: Aida Dunn Dear Dr. Weinberg: I saw Ms. Dunn once again on June 26, 2012. A copy of my brief office note is enclosed. My recommendations are summarized at the end of the note. I remain available should there be further concerns or questions. Sincerely yours, Luciano Ferreira M.D., Ph.D. WILL/GAIL [place] Enclosure documented in this encounter Plan of Treatment Upcoming Encounters Date Type Department Care Team (Late st Contact Info) Description 03/23/2025 12:20 PM EST Office Visit Endocrinology [address] [phone] Irina Haque MD [address] [phone] 6 month follow up documented as of this encounter Visit Diagnoses Not on filedocumented in this encounter Care Teams Recreation Therapy Aide Relationship Specialty Start Date End Date Tevin Weinberg PCP - General Family Medicine 03/18/12 documented as of this encounter
--- OUTSIDE RECORDS SUMMARY | 2025-01-07 14:47 | XMS_ITS | Clinical Summary ---
Author Organization [facility] Address [address] [place] [address] Care Team Providers Care Endless Belt Finisher Name Role Phone Blanco Gutierrez MD Primary Care Provider Allergies Active Allergy Reactions Criticality Noted Date Comments Cephalexin 08/02/2020 Ciprofloxacin Diarrhea Medium 03/20/2012 Other reaction(s): Other: See Comments Other reaction(s): Other: See Comments dizzy, loss of equilibrium dizzy, loss of equilibrium Hydrocortisone High 03/20/2012 Other reaction(s): Other: See Comments Other reaction(s): Other: See Comments steroid cream she placed in ear, caused entire face to swell, doesn't know name of cream steroid cream she placed in ear, caused entire face to swell, doesn't know name of cream Latex, Natural Rubber Rash Low 07/11/2023 Liraglutide Nausea Only 12/04/2016 Metformin Diarrhea 12/04/2016 Neuromuscular Blockers, Steroidal Swelling 07/11/2023 Increases blood sugar Nitrofurantoin Monohyd/M-Cryst 08/02/2020 Medications levothyroxine (Synthroid, Levoxyl) 25 mcg tablet Take 25 mcg by mouth before breakfast. Active cetirizine (ZyrTEC) 10 mg tablet Take 10 mg by mouth once daily as directed. Active HumaLOG U-100 Insulin 100 unit/mL injection USE UP TO 50 UNITS A DAY PER INSULIN PUMP DX:E11.9 08/21/2022 Active Strensiq 18 mg/0.45 mL solution injection 08/13/2023 Active Strensiq 80 mg/0.8 mL solution injection 08/13/2023 Active albuterol 2.5 mg /3 mL (0.083 %) nebulizer solution 01/11/2024 Active famotidine (Pepcid) 40 mg tablet Take 40 mg by mouth in the morning. Active labetalol (Normodyne) 100 mg tabletIndication s:Supraventricul ar tachycardia TAKE 1 TABLET (100 MG) BY MOUTH IN THE MORNING, AFTERNOON, AND AT BEDTIME. 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 Polycystic ovaries 08/28/2022 Postural orthostatic tachycardia syndrome (POTS) 06/14/2022 Inappropriate sinus tachycardia 02/16/2020 Hearing loss of right ear 03/07/2018 Diabetic autonomic neuropathy 07/11/2017 Type 2 diabetes mellitus wit h hyperglycemia, with long-term current use of insulin 11/22/2016 Asthma 05/16/2016 Migraine 08/20/2013 Social History Tobacco Use Types Packs/Day Years Used Date Smoking Tobacco: Never Smokeless Tobacco: Never Tobacco Cessation:Counseling Given: Not Answered Alcohol Use Standard Drinks/Week Comments Never 0 (1 standard drink = 0.6 oz pur e alcohol) Humiliation, Afraid, Rape, and Kick questionnair e Answer Date Recorded Within the last year, have y ou been afraid of your partner or ex-partner? No 01/31/2024 Emotionally Abused Not on file 01/31/2024 Physically Abused Not on file 01/31/2024 Sexually Abused Not on file 01/31/2024 PHQ-2 Answer Date Recorded Patient Health Questionnaire-2 Score 0 01/31/2024 Hunger Vital Sign Answer Date Recorded Within the past 12 months, y ou worried that your food would run out before you got the money to buy more. Never true 12/29/19 23 Ran Out of Food in the Last Year Not on file 12/28/2022 Comments Unknown Sex and Gender Information Value Date Recorded Sex Assigned at Not on file Legal Sex Female 11:13 PM EDT Gender Identity Not on file Sexual Orientation Not on file Last Filed Vital Signs Vital Sign Reading Time Taken Comments Blood Pressure 132/80 01/31/2024 3:56 PM EDT Pulse 75 01/31/2024 3:56 PM EDT Temperature - - Respiratory Rate - - Oxygen Saturation - - Inhaled Oxygen Concentration - - Weight 85.7 kg (189 lb) 01/31/2024 3:51 PM EDT Height 165.1 cm (5' 5 ) 01/31/2024 3:51 PM EDT Body Mass Index 31.45 01/31/2024 3:51 PM EDT Plan of Treatment Upcoming Encounters Date Type Department Care Team (Late st Contact Info) Description 01/28/2025 2:30 PM EDT Telemedicine [facility] [address] [place] [address] Arianne Falcon, CHANNELING MACHINE OPERATOR [address] [place] [address] Health Maintenance Due Date Last Done Comments Medicare Annual Wellness (AWV) 1989 Diabetes: Retinopathy Screening 1999 Varicella Vaccines (1 of 2 - 13+ 2-dose series) 2002 Pneumococcal Vaccine: Pediatrics (0 to 5 Years) and At-Risk Patients (6 to 64 Years) (1 of 2 - PCV) 2008 HPV/Cotest 2019 COVID-19 Vaccine ( season) 2024 05/26/2021, 04/26/2021 Diabetes: Hemoglobin A1C 03/20/2024 12/19/2023 Diabetes: Urine Protein Screening 10/18/2024 10/19/2023, 12/26/2022 Influenza Vaccine (#1) 2025 , 04/05/2022, 02/27/2021, Additional history exists Depression Screening 01/30/2025 01/31/2024 Cervical Cancer Screening 12/27/2025 Pap Smear 12/27/2025 12/27/2022 Adult Tetanus 01/18/2028 01/17/2018 Zoster Vaccines (1 of 2) 2039 HIB Vaccines Completed 04/14/1991 IPV Vaccines Completed 07/24/1994, 07/1991, 1989, Additional history exists Hepatitis B Vaccines Completed 05/09/2002, 12/17/2001, 11/06/2001 HPV Vaccines Aged Out No longer eligi ble based on patient's age to complete this topic Meningococcal B Vaccine Aged Out No l onger eligible based on patient's age to complete this topic Meningococcal Vaccine Aged Out No franky neri eligible based on patient's age to complete this topic Rotavirus Vaccines Aged Out No longer eligible based on patient's age to complete this topic Insurance [employer] MEDICARE ADVANTAGE Member Subscriber Plan / Payer (Ef fective 2019-Present) Name:Shaun Aida Husain Relation to Subscriber:Self Name:Aida Dunn Rodrigue Payer ID:[id number] (NAIC) Group ID:[id number] Type:Not on file Address: [place] [id number] MED[place] Care Teams Endless Belt Finisher Relationship Specialty Start Date End Date Blanco Gutierrez MD [address] [place] [address] PCP - General 12/28/22
--- OUTSIDE RECORDS SUMMARY | 2025-01-07 14:47 | XMS_ITS | Encounter Summary ---
Author Organization [facility] Address [address] [place] [address] Care Team Providers Care Solidworks Mechanical Designer Name Role Phone Tevin Weinberg Primary Care Provider [phone] Source Comments In the event this information is protected by the Federal Confidentiality of Alcohol and Drug AbusePatient Records regulations: The Federal rules restrict any use of the information to criminally investigate or prosecute any alcohol or drug abuse patient.[facility] Encounter Details Date Type Department Care Team (Late st Contact Info) Description 07/22/2024 Get Medical Advice Endocrinology [address] [phone] Irina Haque MD [address] [phone] Reschedule Social History Tobacco Use Types Packs/Day Years Used Date Smoking Tobacco: Never Smokeless Tobacco: Never Alcohol Use Standard Drinks/Week Comments Not Asked 0 (1 standard drink = 0.6 oz pur e alcohol) Area Deprivation Index Answer Date Harjinder rded National Score (1-100), lower number is lower ri sk 83 04/21/2024 State Score (1-10), lower number is lower risk 7 04/21/2024 Data from: https://www.neighborhoodatlas.[facility].edu/. Last address used for calculation [place] 04/21/2024 Comments No Sex and Gender Information Value Date Recorded Sex Assigned at Not on file Legal Sex Female 10:18 AM EST Gender Identity Not on file Sexual Orientation Not on file documented as of this encounter Plan of Treatment Upcoming Encounters Date Type Department Care Team (Late st Contact Info) Description 03/23/2025 12:20 PM EST Office Visit Endocrinology [address] [phone] Irina Haque MD [address] [place] [address] 6 month follow up documented as of this encounter Visit Diagnoses Not on filedocumented in this encounter Care Teams Solidworks Mechanical Designer Relationship Specialty Start Date End Date Tevin Weinberg PCP - General Family Medicine 03/18/12 documented as of this encounter
--- OUTSIDE RECORDS SUMMARY | 2025-01-07 14:47 | XMS_ITS | Encounter Summary ---
Author Organization [facility] Address [address] [place] [address] Care Team Providers Care Air Duct Mechanic Name Role Phone Tevin Weinberg Primary Care Provider [phone] Source Comments In the event this information is protected by the Federal Confidentiality of Alcohol and Drug AbusePatient Records regulations: The Federal rules restrict any use of the information to criminally investigate or prosecute any alcohol or drug abuse patient.[facility] Encounter Details Date Type Department Care Team (Late st Contact Info) Description 06/25/2024 Patient Msg Diabetic Education [facility] [address] [place] [address] Roxi Palafox, butadiene converter utility operator education follow up Social History Tobacco Use Types Packs/Day Years Used Date Smoking Tobacco: Never Smokeless Tobacco: Never Alcohol Use Standard Drinks/Week Comments Not Asked 0 (1 standard drink = 0.6 oz pur e alcohol) Area Deprivation Index Answer Date Harjinder rded National Score (1-100), lower number is lower ri sk 83 04/21/2024 State Score (1-10), lower number is lower risk 7 04/21/2024 Data from: https://www.neighborhoodatlas.medicine.[facility].edu/. Last address used for calculation [address] [place] [address] 04/21/2024 Comments No Sex and Gender Information Value Date Recorded Sex Assigned at Not on file Legal Sex Female 10:18 AM EST Gender Identity Not on file Sexual Orientation Not on file documented as of this encounter Plan of Treatment Upcoming Encounters Date Type Department Care Team (Late st Contact Info) Description 03/23/2025 12:20 PM EST Office Visit Endocrinology [address] [place] [address] Irina Haque MD [address] [place] [address] 6 month follow up documented as of this encounter Visit Diagnoses Not on filedocumented in this encounter Care Teams Air Duct Mechanic Relationship Specialty Start Date End Date Tevin Weinberg PCP - General Family Medicine 03/18/12 documented as of this encounter
--- OUTSIDE RECORDS SUMMARY | 2025-01-07 14:47 | XMS_ITS | Encounter Summary ---
Author Organization [facility] Address [address] [place] [address] Care Team Providers Care Parts Clerk Name Role Phone Tevin Weinberg Primary Care Provider [phone] Source Comments In the event this information is protected by the Federal Confidentiality of Alcohol and Drug AbusePatient Records regulations: The Federal rules restrict any use of the information to criminally investigate or prosecute any alcohol or drug abuse patient.[facility] Encounter Details Date Type Department Care Team (Late st Contact Info) Description 03/20/2012 Letters (in) Neurology [address] [place] [address] Luciano Ferreira MD [facility] [place] [address] [facility] Social History Tobacco Use Types Packs/Day Years Used Date Smoking Tobacco: Never Assessed Comments Unknown Sex and Gender Information Value Date Recorded Sex Assigned at Not on file Legal Sex Female 10:18 AM EST Gender Identity Not on file Sexual Orientation Not on file documented as of this encounter Progress Notes * Luciano Ferreira - 03/20/2012 12:00 AM EST March 22, 2012 Tevin Weinberg MD [address] [place], [place] [address] [place] [address] RE: Aida Dunn Dear Dr. Weinberg: I saw Ms. Dunn in neurological consultation on March 20, 2012. A copy of my office note is enclosed summarizing my assessment and recommendations. I will arrange to see her after the evaluation byneurootology. I will then decide what further diagnostic studies or management strategies should berecommended. Thank you for asking us to see her. Sincerely yours, Luciano Ferreira M.D., Ph.D. WILL/julia Forde Enclosure documented in this encounter Plan of Treatment Upcoming Encounters Date Type Department Care Team (Late st Contact Info) Description 03/23/2025 12:20 PM EST Office Visit Endocrinology [address] [phone] Irina Haque MD [address] [phone] 6 month follow up documented as of this encounter Visit Diagnoses Not on filedocumented in this encounter Care Teams Parts Clerk Relationship Specialty Start Date End Date Tevin Weinberg PCP - General Family Medicine 03/18/12 documented as of this encounter
--- OUTSIDE RECORDS SUMMARY | 2025-01-07 14:47 | XMS_ITS | Encounter Summary ---
Author Organization [facility] tem Address [id number] [place] [address] Care Team Providers Care Network Technician Name Role Phone Blanco Gutierrez MD Primary Care Provider [phone] Encounter Details Date Type Department Care Team (Late Contact Info) Description 08/02/2020 Orders Only Maternal- Medicine at [facility] [address] [place] [address] External, Scanning Provider Social History Tobacco Use Types Packs/Day Years Used Date Smoking Tobacco: Never Smokeless Tobacco: Never Alcohol Use Standard Drinks/Week Comments No 0 (1 standard drink = 0.6 oz pur e alcohol) rarely Childcare Answer Date Recorded Childcare Unknown 10/23/2018 Employment Answer Date Recorded Employment Unknown 10/23/2018 Purpose - Life Answer Date Recorded Purpose and direction in life Unknown Comments Yes Sex and Gender Information Value Date Recorded [...] have Coronavirus / COVID-19? No / Unsure 08/05/2020 1:01 PM EDT documented as of this encounter Plan of Treatment Upcoming Encounters Date Type Department Care Team (Late st Contact Info) Description 01/30/2025 10:45 AM EDT Office Visit [facility] Department of [facility] [address] [facility] [address] [place] [address] Bernardino Cabrera MD [address] [facility] [facility] [address] [place] [address] 02/11/2025 1:45 PM EDT Office Visit [facility] Pul[facility]Sleep [facility] [address] [place] [address] Dena Fernandez, TEST DEVELOPER-SALES SECRETARY [address] [facility], [address] [place] [address] 03/12/2025 10:00 AM EDT Office Visit [facility] [address] [facility] [address] [place] [address] Maggie Beal MD [address] [facility] [address] [place] [address] documented as of this encounter Procedures Procedure Name Priority Date/Time Associated Diagnosis Comments US PREG LMTD 1 OR MORE FETUS Routine 07/27/2020 documented in this encounter Results * Ultrasound limited 1 or more fetus (07/27/2020) Anatomical Region Laterality Modality OB-PRINTED CIRCUIT BOARDS INSPECTOR Ultrasound Narrative 07/27/2020 See attached report us Scanning Provider External IMG US ORDERABLES Mamaodu faiza Result - Final documented in this encounter Visit Diagnoses Not on filedocumented in this encounter Additional Health Concerns Infection Onset Date Last Indicated Resolved Time COVID-19 Rule-Out 08/03/2020 08/03/2020 08/04/2020 4:39 PM EDT COVID-19 Rule-Out 09/30/2020 09/30/2020 09/30/2020 10:19 AM EDT documented as of this encounter Care Teams Network Technician Relationship Specialty Start Date End Date Naderer, Blanco, MD PCP - General Family Medicine 05/31/24 documented as of this encounter
--- OUTSIDE RECORDS SUMMARY | 2025-01-07 14:47 | XMS_ITS | Encounter Summary ---
Author Organization [facility] tem Address [facility] [place] [address] Care Team Providers Care Steward/Stewardess Room Name Role Phone Blanco Gutierrez MD Primary Care Provider [phone] Encounter Details Date Type Department Care Team (Late Contact Info) Description 10/05/2016 Telephone Maternal- Medicine at [facility] [address] [facility] [place] [phone] Rhoda Dunn LPN Social History Tobacco Use Types Packs/Day Years Used Date Smoking Tobacco: Former Alcohol Use Standard Drinks/Week Comments Not Asked 0 (1 standard drink = 0.6 oz pur e alcohol) rarely Comments Unknown Sex and Gender Information Value Date Recorded Sex Assigned at Female 10/28/2021 12:44 PM EDT Legal Sex Female 11:43 AM EDT Gender Identity Female 10/28/2021 12:44 PM EDT Sexual Orientation Straight 10/28/2021 12 :44 PM EDT documented as of this encounter Plan of Treatment Upcoming Encounters Date Type Department Care Team (Late Contact Info) Description 01/30/2025 10:45 AM EDT Office Visit [facility] Adult Endocrinology, A Department of [facility] [address] [place] [phone] Bernardino Cabrera MD [address] [place] [address] 02/11/2025 1:45 PM EDT Office Visit [facility] [address] [place] [address] Dena Fernandez, BASKET BOTTOM MACHINE OPERATOR-LAWNMOWER MECHANIC [address] [facility], [address] [place] [address] 03/12/2025 10:00 AM EDT Office Visit [facility] [address] [facility] [address] [place] [address] Maggie Beal MD [address] [facility] [address] [place] [address] documented as of this encounter Visit Diagnoses Not on filedocumented in this encounter Additional Health Concerns Infection Onset Date Last Indicated Resolved Time Enteric Rule-Out 07/18/2019 07/18/2019 07/25/2019 11:12 PM EDT Enteric Rule-Out 02/25/2020 02/25/2020 02/25/2020 10:46 PM EDT COVID-19 Rule-Out 08/03/2020 08/03/2020 08/04/2020 4:39 PM EDT COVID-19 Rule-Out 09/30/2020 09/30/2020 09/30/2020 10:19 AM EDT documented as of this encounter Care Teams Steward/Stewardess Room Relationship Specialty Start Date End Date Blanco Gutierrez MD PCP - General Family Medicine 05/31/24 documented as of this encounter
--- OUTSIDE RECORDS SUMMARY | 2025-01-07 14:47 | XMS_ITS | Clinical Summary ---
Author Organization [facility] Address [address] [facility], [address] [place] [address] Care Team Providers Care Director Of Workforce Development Name Role Phone Unavailable Primary Care Provider Unavailabl e Allergies Active Allergy Reactions Criticality Noted Date Comments Ciprofloxacin 12/07/2016 Other 12/07/2016 Steroid cream Medications levothyroxine (SYNTHROID) 75 MCG tablet Take 75 mcg by mouth Daily Active labetalol (NORMODYNE) 200 MG tablet Take 200 mg by mouth 2 times daily Active DULoxetine (CYMBALTA) 20 MG extended release capsule Take 20 mg by mouth daily Active insulin lispro (HUMALOG) 100 UNIT/ML injection vial Inject 10 Units into the skin 3 times daily (before meals) Active insulin detemir (LEVEMIR) 100 UNIT/ML injection vial Inject 18 Units into the skin nightly Active MV-Min-Fe Fum-FA-DHA ( 1 PO) Take 1 tablet by mouth daily Active Social History Tobacco Use Types Packs/Day Years Used Date Smoking Tobacco: Never Comments Unknown Sex and Gender Information Value Date Recorded Sex Assigned at Not on file Legal Sex Female 3:23 PM EST Gender Identity Not on file Sexual Orientation Not on file Last Filed Vital Signs Vital Sign Reading Time Taken Comments Blood Pressure 141/91 12/07/2016 7:45 PM EDT Pulse 100 12/07/2016 7:02 PM EDT Temperature 37.6 C (99.6 F) 12/07/2016 7:02 PM EDT Respiratory Rate 16 12/07/2016 7:02 PM EDT Oxygen Saturation 99% 12/07/2016 7:02 PM EDT Inhaled Oxygen Concentration - - Weight - - Height - - Body Mass Index - - Plan of Treatment Not on file Insurance [place] [facility]
--- OUTSIDE RECORDS SUMMARY | 2025-01-07 14:47 | XMS_ITS | Encounter Summary ---
Author Organization [facility] Address [address] [place] [address] Care Team Providers Care Dehydrating Press Operator Name Role Phone Blanco Gutierrez MD Primary Care Provider [phone] Reason for Visit * Reason Comments Med Refill Encounter Details Date Type Department Care Team (Late st Contact Info) Description 09/28/2022 Refill [facility] [address] [place] [address] Arianne Falcon, BONE GLUE MAKER [address] [place] [address] Essential hypertension Social History Tobacco Use Types Packs/Day Years Used Date Smoking Tobacco: Never Smokeless Tobacco: Never Alcohol Use Standard Drinks/Week Comments Never 0 (1 standard drink = 0.6 oz pur e alcohol) PHQ-2 Answer Date Recorded Patient Health Questionnaire-2 Score 0 08/28/2022 Comments Unknown Sex and Gender Information Value Date Recorded Sex Assigned at Not on file Legal Sex Female 11:13 PM EDT Gender Identity Not on file Sexual Orientation Not on file documented as of this encounter Plan of Treatment Upcoming Encounters Date Type Department Care Team (Late st Contact Info) Description 01/28/2025 2:30 PM EDT Telemedicine [facility] [address] [place] [address] Arianne Falcon, BONE GLUE MAKER [address] [place] [address] documented as of this encounter Visit Diagnoses Diagnosis Essential hypertension Unspecified essential hypertension documented in this encounter Care Teams Dehydrating Press Operator Relationship Specialty Start Date End Date Blanco Gutierrez MD [address] [place] [address] PCP - General 12/28/22 documented as of this encounter
--- OUTSIDE RECORDS SUMMARY | 2025-01-07 14:47 | XMS_ITS | Encounter Summary ---
Author Organization [facility] Address [address] [place] [address] Care Team Providers Care Psychological Operations Specialist Name Role Phone Tevin Weinberg Primary Care Provider [phone] Source Comments In the event this information is protected by the Federal Confidentiality of Alcohol and Drug AbusePatient Records regulations: The Federal rules restrict any use of the information to criminally investigate or prosecute any alcohol or drug abuse patient.[facility] Encounter Details Date Type Department Care Team (Late st Contact Info) Description 05/22/2024 Patient Msg Endocrinology [address] [phone] Irina Haque MD [address] [phone] mounjaro prescription Social History Tobacco Use Types Packs/Day Years Used Date Smoking Tobacco: Never Smokeless Tobacco: Never Alcohol Use Standard Drinks/Week Comments Not Asked 0 (1 standard drink = 0.6 oz pur e alcohol) Area Deprivation Index Answer Date Harjinder rded National Score (1-100), lower number is lower ri sk 83 04/21/2024 State Score (1-10), lower number is lower risk 7 04/21/2024 Data from: https://www.neighborhoodatlas.[facility]/. Last address used for calculation [place] 04/21/2024 Comments No Sex and Gender Information Value Date Recorded Sex Assigned at Not on file Legal Sex Female 10:18 AM EST Gender Identity Not on file Sexual Orientation Not on file documented as of this encounter Plan of Treatment Upcoming Encounters Date Type Department Care Team (Late st Contact Info) Description 03/23/2025 12:20 PM EST Office Visit Endocrinology [address] [phone] Irina Haque MD [address] [place] [address] 6 month follow up documented as of this encounter Visit Diagnoses Not on filedocumented in this encounter Care Teams Psychological Operations Specialist Relationship Specialty Start Date End Date Tevin Weinberg PCP - General Family Medicine 03/18/12 documented as of this encounter
--- OUTSIDE RECORDS SUMMARY | 2025-01-07 14:47 | XMS_ITS | Encounter Summary ---
Author Organization [facility] Address [address] [place] [address] Care Team Providers Care Director Of Catering Sales Name Role Phone Tevin Weinberg Primary Care Provider [phone] Source Comments In the event this information is protected by the Federal Confidentiality of Alcohol and Drug AbusePatient Records regulations: The Federal rules restrict any use of the information to criminally investigate or prosecute any alcohol or drug abuse patient.[facility] Encounter Details Date Type Department Care Team (Late st Contact Info) Description 05/26/2024 Get Medical Advice Endocrinology [address] [phone] Irina Haque MD [address] [phone] Test Social History Tobacco Use Types Packs/Day Years Used Date Smoking Tobacco: Never Smokeless Tobacco: Never Alcohol Use Standard Drinks/Week Comments Not Asked 0 (1 standard drink = 0.6 oz pur e alcohol) Area Deprivation Index Answer Date Harjinder rded National Score (1-100), lower number is lower ri sk 83 04/21/2024 State Score (1-10), lower number is lower risk 7 04/21/2024 Data from: https://www.neighborhoodatlas.medicine.[facility]/. Last address used for calculation [place]ogie GARZA [...] 12:20 PM EST Office Visit Endocrinology [address] [place] [address] Irina Haque MD [address] [place] [address] 6 month follow up documented as of this encounter Visit Diagnoses Not on filedocumented in this encounter Care Teams Director Of Catering Sales Relationship Specialty Start Date End Date Tevin Weinberg PCP - General Family Medicine 03/18/12 documented as of this encounter
--- OUTSIDE RECORDS SUMMARY | 2025-01-07 14:47 | XMS_ITS | Encounter Summary ---
Author Organization [facility] Address [address] [place] [address] Care Team Providers Care Molding Process Technician Name Role Phone Tevin Weinberg Primary Care Provider [phone] Source Comments In the event this information is protected by the Federal Confidentiality of Alcohol and Drug AbusePatient Records regulations: The Federal rules restrict any use of the information to criminally investigate or prosecute any alcohol or drug abuse patient.[facility] Encounter Details Date Type Department Care Team (Late st Contact Info) Description 07/17/2024 Patient [facility] [place] [address] Frances Jensen RPh At your next appointment, choose [facility]. Social History Tobacco Use Types Packs/Day Years Used Date Smoking Tobacco: Never Smokeless Tobacco: Never Alcohol Use Standard Drinks/Week Comments Not Asked 0 (1 standard drink = 0.6 oz pur e alcohol) Area Deprivation Index Answer Date Harjinder rded National Score (1-100), lower number is lower ri sk 83 04/21/2024 State Score (1-10), lower number is lower risk 7 04/21/2024 Data from: https://www.neighborhoodatlas.medicine.[facility].edu/. Last address used for calculation [address] [place] [address] 04/21/2024 Comments No Sex and Gender Information Value Date Recorded Sex Assigned at Not on file Legal Sex Female 10:18 AM EST Gender Identity Not on file Sexual Orientation Not on file documented as of this encounter Plan of Treatment Upcoming Encounters Date Type Department Care Team (Late st Contact Info) Description 03/23/2025 12:20 PM EST Office Visit Endocrinology [address] [phone] Irina Haque MD [address] [place] [address] 6 month follow up documented as of this encounter Visit Diagnoses Not on filedocumented in this encounter Care Teams Molding Process Technician Relationship Specialty Start Date End Date Tevin Weinberg PCP - General Family Medicine 03/18/12 documented as of this encounter
--- OUTSIDE RECORDS SUMMARY | 2025-01-07 14:47 | XMS_ITS | Encounter Summary ---
Author Organization [facility] Address [address] [place] [address] Care Team Providers Care Ware Tester Name Role Phone Tevin Weinberg Primary Care Provider [phone] Source Comments In the event this information is protected by the Federal Confidentiality of Alcohol and Drug AbusePatient Records regulations: The Federal rules restrict any use of the information to criminally investigate or prosecute any alcohol or drug abuse patient.[facility] Encounter Details Date Type Department Care Team (Late st Contact Info) Description 06/17/2024 Patient Msg Diabetic Education [facility] [address] [place] [address] Roxi Palafox, PATRICIA NO SHOW Diabetes education Social History Tobacco Use Types Packs/Day Years Used Date Smoking Tobacco: Never Smokeless Tobacco: Never Alcohol Use Standard Drinks/Week Comments Not Asked 0 (1 standard drink = 0.6 oz pur e alcohol) Area Deprivation Index Answer Date Harjinder rded National Score (1-100), lower number is lower ri sk 83 04/21/2024 State Score (1-10), lower number is lower risk 7 04/21/2024 Data from: https://www.neighborhoodatlas.medicine.[facility].edu/. Last address used for calculation [address] [place] [address] 04/21/2024 Comments No Sex and Gender Information Value Date Recorded Sex Assigned at Not on file Legal Sex Female 10:18 AM EST Gender Identity Not on file Sexual Orientation Not on file documented as of this encounter Plan of Treatment Upcoming Encounters Date Type Department Care Team (Late st Contact Info) Description 03/23/2025 12:20 PM EST Office Visit Endocrinology [address] [place] [address] Irina Haque MD [address] [place] [address] 6 month follow up documented as of this encounter Visit Diagnoses Not on filedocumented in this encounter Care Teams Ware Tester Relationship Specialty Start Date End Date Tevin Weinberg PCP - General Family Medicine 03/18/12 documented as of this encounter
--- OUTSIDE RECORDS SUMMARY | 2025-01-07 14:47 | XMS_ITS | Patient Health Record ---
Author Organization [facility] Address [address] [place] [address] Care Team Providers Care Drop Crew Laborer Name Role Phone Blanco Gutierrez MD Primary Care Provider Unavailab le Allergies Allergen (clinical drug ingredient) Drug/Non Drug Allergy documented on EMR Reaction Allergy Type Onset Date Status Steroids steroids (uncoded) Unknown Allergy A ctive ciprofloxacin Cipro Unknown Drug Allergy Act katalina Reason For Referral No Information Medications Medication SIG (Take, Route, Frequency, Duration) Notes Start Date End Date Status ZyrTEC Allergy 10 MG 1 tablet Orally Onc e a day for 90 Active Flonase 50 MCG/ACT 1 sprays in each nos tril Nasally Once a day for 90 Active Meloxicam 7.5 MG TAKE 1 TABLET BY EDGAR TH TWICE A DAY for 30 Active Levothyroxine Sodium 88 mcg (0.088 mg) Active Azelastine HCl 0.1 % 1 puff in each nost ril Nasally Twice a day for 90 Active Labetalol HCl Active Biotin Active Social History Tobacco Use: Social History Observation Description Date Details (start date - stop date) Never Smoker NA - NA Tobacco Use/Smoking Question Answer Notes Patient is a nonsmoker Problems Problem Type SNOMED Code ICD Code Onset Dates Problem Status W/U Status Risk Notes Problem 61557962 Obstructive slee p apnea (adult) (pediatric) (G47.33) Active confirmed Problem 78076980 Myoclonus (G25.3) Active confirmed Problem 03270813 Chronic maxillar y sinusitis (J32.0) Active confirmed Problem 80666361 Chronic ethmoida l sinusitis (J32.2) Active confirmed Problem 45451151 Chronic sphenoidal sinusitis (J32.3) Active confirmed Problem 24991406 Chronic pansinusitis (J32.4) Active confirmed Problem 44964561 Other chronic sinusitis (J32.8) Active confirmed Problem 257633887 Chronic nephriti c syndrome with other morphologic changes (N03.8) Active confirmed Problem 004745803 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) Active confirmed Problem 97248921 Essential hypertension (I10) Active confirmed Problem 8596816473693 Tinnitus of both ears (H93.13) Active confirmed Problem 88814874 Diabetes type 2, 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) Active confirmed Problem 88626091 Seasonal allergi c rhinitis due to pollen (J30.1) Active confirmed Problem 86726087 Meniere''s disease, unspecified laterality (H81.09) Active confirmed Plan Of Treatment No Information Insurance Providers Payer Name Payer Address Payer Phone Subscriber Number Group Number Insured Name Patient Relationship to Insured Coverage Start Date Coverage End Date [employer] MEDICARE ADV PLAN [address] [place] [address] [id number] [facility] August Self - patient is the insured 8 MEDICAID [place] 2ND INS [address] [place], [place] [id number] August Self - patient is the insured 8 Medical (General) History Medical History History ICD Code diabetes hypertension thyroid disorder asthma Hx of migraines GERD seasonal allergies ear infections Hearing loss sinus problems tinnitus snoring dizziness Surgical History Surgery Date(Month/Year) Sinus
--- OUTSIDE RECORDS SUMMARY | 2025-01-07 14:47 | XMS_ITS | Encounter Summary ---
Author Organization [facility] Address [address] [place] [address] Care Team Providers Care Supervisor Transcribing Operators Name Role Phone Blanco Gutierrez MD Primary Care Provider [phone] Reason for Visit * Reason Comments Med Refill Encounter Details Date Type Department Care Team (Late st Contact Info) Description 05/18/2022 Refill [facility] [address] [place] [address] Arianne Falcon CNP [address] [place] [address] Supraventricular tachycardia Social History Tobacco Use Types Packs/Day Years [...] Info) Description 01/28/2025 2:30 PM EDT Telemedicine [facility] [address] [place] [address] Arianne Falcon FABRICATOR ASSEMBLER [employer] [address] [place] [address] documented as of this encounter Visit Diagnoses Diagnosis Supraventricular tachycardia Other specified cardiac dysrhythmias documented in this encounter Care Teams Supervisor Transcribing Operators Relationship Specialty Start Date End Date Blanco Gutierrez MD [address] [place] [address] PCP - General 12/28/22 documented as of this encounter
--- OUTSIDE RECORDS SUMMARY | 2025-01-07 14:47 | XMS_ITS | Encounter Summary ---
Author Organization [employer] Address [id number] [address] [place] [address] Care Team Providers Care Seafood Manager Name Role Phone Blanco Gutierrez MD Primary Care Provider [phone] Encounter Details Date Type Department Care Team (Late st Contact Info) Description 05/09/2023 Telephone [facility] [address] [place] [phone] Luna Phillip LPN Social History Tobacco Use [...] Telephone Encounter - Luna Phillip LPN - 05/09/2023 3:04 PM EST SHE'S HAVING A HARD TIME GIVING HERSELF INJECTIONS. * Telephone Encounter - JOURDAN Ingram - 05/09/2023 3:04 PM EST Does she need more education? * Telephone Encounter - Luna Phillip LPN - 05/09/2023 3:04 PM EST SHE'S NOT COMFORTABLE. * Telephone Encounter - JOURDAN Ingram - 05/09/2023 3:04 PM EST Sees you 05/22 documented in this encounter Plan of Treatment Upcoming Encounters Date Type Department Care Team (Late st Contact Info) Description 01/30/2025 10:45 AM EDT Office Visit [facility], A Department of [facility] [address] [facility] [address] [place] [phone] Bernardino Cabrera MD [address] [facility] [place] [address] 02/11/2025 1:45 PM EDT Office Visit [facility] Pul[facility]/Sleep Medicine [address] [facility] [facility] [address] Dena Fernandez APRN-KILN TESTER [address] [facility], [address] [place] [address] 03/12/2025 10:00 AM EDT Office Visit [facility] [address] [facility] [address] [place] [address] Maggie Beal MD [address] [address] documented as of this encounter Visit Diagnoses Not on filedocumented in this encounter Additional Health Concerns Assessment Noted Time PHQ-9 Depression Total Score: 0 12/28/19 23 2:41 PM EDT documented as of this encounter Care Teams Seafood Manager Relationship Specialty Start Date End Date Blanco Gutierrez MD PCP - General Family Medicine 05/31/24 documented as of this encounter
--- OUTSIDE RECORDS SUMMARY | 2025-01-07 14:47 | XMS_ITS | Encounter Summary ---
Author Organization [facility] Address [address] [place] [address] Care Team Providers Care Broadcast Director Operations Name Role Phone Tevin Weinberg Primary Care Provider [phone] Source Comments In the event this information is protected by the Federal Confidentiality of Alcohol and Drug AbusePatient Records regulations: The Federal rules restrict any use of the information to criminally investigate or prosecute any alcohol or drug abuse patient.[facility] Reason for Visit * Reason Comments Request For Clinical Notes Encounter Details Date Type Department Care Team (Late st Contact Info) Description 11/18/2024 Telephone Endocrinology [address] [phone] Irina Haque MD [address] [place] [address] Request For Clinical Notes Social History Tobacco Use Types Packs/Day Years Used Date Smoking Tobacco: Never Smokeless Tobacco: Never Alcohol Use Standard Drinks/Week Comments Not Asked 0 (1 standard drink = 0.6 oz pur e alcohol) Area Deprivation Index Answer Date Harjinder rded National Score (1-100), lower number is lower ri sk 83 04/21/2024 State Score (1-10), lower number is lower risk 7 04/21/2024 Data from: https://www.neighborhoodatlas.medicine.[facility].edu/. Last address used for calculation [place] G[place]ZA 04/21/2024 Comments No Sex and Gender Information Value Date Recorded Sex Assigned at Not on file Legal Sex Female 10:18 AM EST Gender Identity Not on file Sexual Orientation Not on file documented as of this encounter Miscellaneous Notes * Telephone Encounter - Stephanie Marlow MA - 11/18/2024 10:56 AM EDT November 18, 2024 10:56 AM Last encounter Visit on 09/19/2024 (with Irina Haque) Request for clinical notes from [facility] has been successfully sent. Clinical notes dated 09/19/24. [facility] Stephanie Marlow Arresting Gear Operator II Endocrinology & Metabolism Gary F20-X documented in this encounter Plan of Treatment Upcoming Encounters Date Type Department Care Team (Late st Contact Info) Description 03/23/2025 12:20 PM EST Office Visit Endocrinology [address] [phone] Irina Haque MD [address] [phone] 6 month follow up documented as of this encounter Visit Diagnoses Not on filedocumented in this encounter Care Teams Broadcast Director Operations Relationship Specialty Start Date End Date Tevin Weinberg PCP - General Family Medicine 03/18/12 documented as of this encounter
--- OUTSIDE RECORDS SUMMARY | 2025-01-07 14:47 | XMS_ITS | Encounter Summary ---
Author Organization [facility] Address [address] [place] [address] Care Team Providers Care Industrial Painter Name Role Phone Tevin Weinberg Primary Care Provider [phone] Source Comments In the event this information is protected by the Federal Confidentiality of Alcohol and Drug AbusePatient Records regulations: The Federal rules restrict any use of the information to criminally investigate or prosecute any alcohol or drug abuse patient.[facility] Encounter Details Date Type Department Care Team (Late st Contact Info) Description 06/26/2024 Patient Msg Endocrinology & Metabolic [place] [address] [place] [address] Provider, [facility] Scheduled Appointment Social History Tobacco Use Types Packs/Day Years Used Date Smoking Tobacco: Never Smokeless Tobacco: Never Alcohol Use Standard Drinks/Week Comments Not Asked 0 (1 standard drink = 0.6 oz pur e alcohol) Area Deprivation Index Answer Date Harjinder rded National Score (1-100), lower number is lower ri sk 83 04/21/2024 State Score (1-10), lower number is lower risk 7 04/21/2024 Data from: https://www.neighborhoodatlas.medicine.[facility].edu/. Last address used for calculation [address] [place] [address] 04/21/2024 Comments No Sex and Gender Information Value Date Recorded Sex Assigned at Not on file Legal Sex Female 10:18 AM EST Gender Identity Not on file Sexual Orientation Not on file documented as of this encounter Plan of Treatment Upcoming Encounters Date Type Department Care Team (Late st Contact Info) Description 03/23/2025 12:20 PM EST Office Visit Endocrinology [address] [place] [address] Irina Haque MD [address] [place] [address] 6 month follow up documented as of this encounter Visit Diagnoses Not on filedocumented in this encounter Care Teams Industrial Painter Relationship Specialty Start Date End Date Tevin Weinberg PCP - General Family Medicine 03/18/12 documented as of this encounter
--- OUTSIDE RECORDS SUMMARY | 2025-01-07 14:47 | XMS_ITS | Encounter Summary ---
Author Organization [facility] Address [address] [place] [address] Care Team Providers Care Food Cart Attendant Name Role Phone Tevin Weinberg Primary Care Provider [phone] Source Comments In the event this information is protected by the Federal Confidentiality of Alcohol and Drug AbusePatient Records regulations: The Federal rules restrict any use of the information to criminally investigate or prosecute any alcohol or drug abuse patient.[facility] Encounter Details Date Type Department Care Team (Late st Contact Info) Description 06/20/2024 Get Medical Advice Endocrinology [address] [phone] Irina Haque MD [address] [phone] Blood sugar Social History Tobacco Use Types Packs/Day Years Used Date Smoking Tobacco: Never Smokeless Tobacco: Never Alcohol Use Standard Drinks/Week Comments Not Asked 0 (1 standard drink = 0.6 oz pur e alcohol) Area Deprivation Index Answer Date Harjinder rded National Score (1-100), lower number is lower ri sk 83 04/21/2024 State Score (1-10), lower number is lower risk 7 04/21/2024 Data from: https://www.neighborhoodatlas.[facility]/. Last address used for calculation [place]ie GARZA [...] 12:20 PM EST Office Visit Endocrinology [address] [place] [address] Irina Haque MD [address] [place] [address] 6 month follow up documented as of this encounter Visit Diagnoses Not on filedocumented in this encounter Care Teams Food Cart Attendant Relationship Specialty Start Date End Date Tevin Weinberg PCP - General Family Medicine 03/18/12 documented as of this encounter
--- OUTSIDE RECORDS SUMMARY | 2025-01-07 14:47 | XMS_ITS | Encounter Summary ---
Author Organization [facility] tem Address [id number] [address] [place] [address] Care Team Providers Care Steel Grinder Name Role Phone Blanco Gutierrez MD Primary Care Provider [phone] Encounter Details Date Type Department Care Team (Late st Contact Info) Description 08/02/2020 Abstract Maternal- Medicine at [facility] [address] [place] [address] Cameron Garcia MD [address] [facility], [address] [place] [address] Social History Tobacco Use Types Packs/Day Years [...] Visit [facility], A Department of [facility] [address] [facility] [address] [place] [address] Bernardino Cabrera MD [address] [facility], [address] [place] [address] 02/11/2025 1:45 PM EDT Office Visit [facility]Sleep [facility] [address] [facility] [address] Dena Fernandez, COMMERCIAL MAKEUP ARTIST-SUPERINTENDENT HORTICULTURE [address] [facility], [address] [place] [address] 03/12/2025 10:00 AM EDT Office Visit [facility] [address] [facility] [address] [place] [address] Maggie Beal MD [address] [facility] [address] [place] [address] documented as of this encounter Procedures Procedure Name Priority Date/Time Associated Diagnosis Comments TSH Routine 07/27/2020 documented in this encounter Results * TSH (07/27/2020) Thyroid Stimulating (3Rd Generation) Hormone/ Tsh 1.037 MANUALLY TRANSCRIBED RESULTS Comment:See attached report us Not In System Ref Prov LAB BLOOD ORDERABLES Edit ed Result - Final MANUALLY TRANSCRIBED RESULTS documented in this encounter Visit Diagnoses Not on filedocumented in this encounter Additional Health Concerns Infection Onset Date Last Indicated Resolved Time COVID-19 Rule-Out 08/03/2020 08/03/2020 08/04/2020 4:39 PM EDT COVID-19 Rule-Out 09/30/2020 09/30/2020 09/30/2020 10:19 AM EDT documented as of this encounter Care Teams Steel Grinder Relationship Specialty Start Date End Date Blanco Gutierrez MD PCP - General Family Medicine 05/31/24 documented as of this encounter
--- OUTSIDE RECORDS SUMMARY | 2025-01-07 14:47 | XMS_ITS | Encounter Summary ---
Author Organization [facility] [employer] [facility] tem Address [facility]-[id number] [address] [place] [address] Care Team Providers Care General Supervisor Name Role Phone Blanco Gutierrez MD Primary Care Provider [phone] Encounter Details Date Type Department Care Team (Late Contact Info) Description 02/14/2017 Telephone Maternal- Medicine at [facility] [address] [place] [phone] Yaritza Sood, ECONOMIC DEVELOPMENT DIRECTOR-PARTY DIRECTOR [address] [facility] [address] [place], [place] [phone] Social History Tobacco Use Types Packs/Day Years Used Date Smoking Tobacco: Never Alcohol Use Standard Drinks/Week Comments No 0 (1 standard drink = 0.6 oz pur e alcohol) rarely Comments Yes Sex and Gender Information Value [...] 01/30/2025 10:45 AM EDT Office Visit [facility] Adult Endocrinology, A Department of [facility] [address] [facility] [address] [place] [address] Bernardino Cabrera MD [address] [facility] [place] [address] 02/11/2025 1:45 PM EDT Office Visit [facility]/Sleep Medicine [address] [facility] [place] [address] Dena Fernandez, ECONOMIC DEVELOPMENT DIRECTOR-PARTY DIRECTOR [address] [facility], [address] [place] [address] 03/12/2025 10:00 AM EDT Office Visit [facility] [address] [facility] [place] [address] Maggie Beal MD [address] [facility] [address] [place] [address] documented as of this encounter [...] documented as of this encounter Care Teams General Supervisor Relationship Specialty Start Date End Date Blanco Gutierrez MD PCP - General Family Medicine 05/31/24 documented as of this encounter
--- OUTSIDE RECORDS SUMMARY | 2025-01-07 14:47 | XMS_ITS | Encounter Summary ---
Author Organization [facility] tem Address [id number] [address] [place] [address] Care Team Providers Care Finish Production Manager Name Role Phone Blanco Gutierrez MD Primary Care Provider [phone] Encounter Details Date Type Department Care Team (Late Contact Info) Description 08/10/2020 Telephone Maternal- Medicine at [facility] [address] [phone] Ethel Danielle, [facility] Social History Tobacco Use Types Packs/Day Years [...] Visit [facility], A Department of [facility] [address] [facility] [address] [address] Bernardino Cabrera MD [address] [facility] [place] [address] 02/11/2025 1:45 PM EDT Office Visit [facility] [address] [place] [phone] Dena Fernandez, TRACTOR CRANE OPERATOR-HULL OUTFIT SUPERVISOR [address] [facility], [address] [place] [address] 03/12/2025 10:00 AM EDT Office Visit [facility] [address] [facility] [address] [place] [address] Maggie Beal MD [address] [facility] [address] [place] [address] documented as of this encounter Visit Diagnoses Not on filedocumented in this encounter Additional Health Concerns Infection Onset Date Last Indicated Resolved Time COVID-19 Rule-Out 09/30/2020 09/30/2020 09/30/2020 10:19 AM EDT documented as of this encounter Care Teams Finish Production Manager Relationship Specialty Start Date End Date Blanco Gutierrez MD PCP - General Family Medicine 05/31/24 documented as of this encounter
--- OUTSIDE RECORDS SUMMARY | 2025-01-07 14:47 | XMS_ITS | Clinical Summary ---
Author Organization [facility] Address [address] [place], [place] [id number] Care Team Providers Care Winchman/Crane Operator Name Role Phone Tevin Weinberg Primary Care Provider [phone] Allergies Active Allergy Reactions Criticality Noted Date Comments Ciprofloxacin Other: See Comments Medium 03/20/2012 dizzy, loss of equilibrium Hydrocortisone Other: See Comments High 03/20/2012 steroid cream she placed in ear, caused entire face to swell, doesn't know name of cream Latex, Natural Rubber Rash Low 07/11/2023 Metformin Diarrhea 12/04/2016 Neuromuscular Blockers, Steroidal Swelling 07/11/2023 Increases blood sugar Nitrofurantoin Monohyd/M-Cryst Other: See Comments 08/02/2020 Medications Cetirizine 10 mg cap Take by mouth once daily. Does not take Cetirizine at present, while she is taking Antivert Active hydrochloroth iazide 25 mg tablet Take 25 mg by mouth once daily. Active mometasone (NASONEX) 50 mcg/actuation nasal spray Use 2 Sprays in the nose once daily. Active meclizine 25 mg Tab Take 25 mg by mouth three times daily as needed. Active Cholecalcifer ol, Vitamin D3, (VITAMIN D-3) 2,000 unit cap Take by mouth once daily. Active Ibuprofen 200 mg cap Take by mouth. Takes up to four tablets once daily only as needed Active STRENSIQ 80 mg/0.8 mL soln Inject 2 mg/kg three times per week as directed. Rotate sites. 1855.28 08/13/19 24 Active ONETOUCH VERIO FLEX METER USE DIRECTED TO TEST BLOOD SUGAR ONE TIME DAILY 02/19/20 24 Active famotidine (PEPCID) 40 mg tablet Take 1 tablet by mouth once daily. 05/22/19 25 Active hydrOXYzine HCl (ATARAX) 25 mg tablet Take 25 mg by mouth as needed for anxiety. Active fluticasone (FLONASE) 50 mcg/actuation nasal spray Use 1 Raymond in each nostril as needed for cold/allergy symptoms. 10/29/19 Active labetalol (TRANDATE) 100 mg tablet Take 100 mg by mouth two times a day. Active ONETOUCH DELICA PLUS LANCET 33 gauge USE DIRECTED TO TEST BLOOD SUGAR ONE TIME DAILY 04/11/20 24 Active levothyroxine (SYNTHROID) 25 mcg tabletIndicat ions:Type 2 diabetes mellitus without complication, without long-term current use of insulin (HCC),PCOS (polycystic ovarian syndrome) Take 1 tablet by mouth daily before breakfast. 90 tablet 06/25/192025 Active blood sugar diagnostic (ONETOUCH VERIO TEST STRIPS) test strip Use with blood glucose test three times a day. E11.9 INSULIN DEPENDENT 300 Each 07/11/19 25 Active metFORMIN ER (GLUMETZA) 500 mg 24 hr tablet Take 1 tablet by mouth daily with dinner. 90 tablet 07/11/19 25 Active rosuvastatin (CRESTOR) 5 mg tablet Take one tablet TWICE weekly by mouth 24 tablet 07/11/19 25 Active glucagon (GVOKE) 1 mg/0.2 mL injection Inject 0.2 mL subcutaneously as needed. 0.2 mL 08/20/19 Active insulin glargine (LANTUS SOLOSTAR U-100 INSULIN) 100 unit/mL (3 mL) Inject 20 Units subcutaneously daily at bedtime. 10 mL 09/20/19 25 Active Insulin [place], Disposable, (BD ULTRA-FINE KATLYN PEN NEEDLE) 32 gauge x 5/32 Use daily with lantus shots in case pump breaks E11.9 100 each 09/20/19 25 Active metFORMIN ER (GLUCOPHAGE XR) 500 mg 24 hr tablet Take 1 tablet by mouth daily with breakfast. 90 tablet 09/20/19 Active Insulin Syringe-Needl e U-100 (BD INSULIN SYRINGE) 1 mL 25 x 1 syrg USE DAILY WITH INSULIN PUMP E10.9 100 each 12/17/19 25 Active T:SLIM X2 CONTROL-IQ miscIndicatio ns:Type 2 diabetes mellitus without complication, without long-term current use of insulin (HCC) USE DIRECTED 1 each 12/05/19 Active DEXCOM G7 SENSOR eduar CHANGE EVERY 10 DAYS E10.9 9 each 3 12/17/19 25 Active insulin lispro 100 unit/mL injection Use 50 units a day per insulin pump50 units a day per insulin pump E10.9 120 mL 3 12/17/19 25 Active DEXCOM G7 SENSOR eduar CHANGE EVERY 10 DAYS 05/19/19 25 2024 Discontinued insulin lispro (HUMALOG) 100 unit/mL injection 50 units a day per insulin pump 2024 Discontinued Active Problems Problem Noted Date Diagnosed Date Fibromyalgia syndrome 03/20/2012 Loss of balance 03/20/2012 Encounters Date Type Department Care Team Description 12/16/2024 Telephone Endocrinology [address] [place], [place] [phone] Irina Haque MD Patient Update (office note) 12/03/2024 Refill Endocrinology [address] [place] [phone] Irina Haque MD Refill Request 12/03/2024 Get Medical Advice Endocrinology [address] [place] [phone] Irina Haque MD Moving and lost 11/18/2024 Telephone Endocrinology [address] [place], [place] [phone] Irina Haque MD Request For Clinical Notes from Last 3 Months Family History Medical History Relation Comments Diabetes Mother Hyperlipidemia Mother htn Mother Relation Status Comments Father Mother Alive Social History Tobacco Use Types Packs/Day Years Used Date Smoking Tobacco: Never Smokeless Tobacco: Never Tobacco Cessation:Counseling Given: Not Answered Alcohol Use Standard Drinks/Week Comments Not Asked 0 (1 standard drink = 0.6 oz pur e alcohol) Area Deprivation Index Answer Date Harjinder rded National Score (1-100), lower number is lower ri sk 83 04/21/2024 State Score (1-10), lower number is lower risk 7 04/21/2024 Data from: https://www.neighborhoodatlas.medicine.[facility].edu/. Last address used for calculation [address] [place] [address] 04/21/2024 Comments No Sex and Gender Information Value Date Recorded Sex Assigned at Not on file Legal Sex Female 10:18 AM EST Gender Identity Not on file Sexual Orientation Not on file Last Filed Vital Signs Vital Sign Reading Time Taken Comments Blood Pressure 140/85 09/19/2024 12:03 PM EDT Pulse 96 09/19/2024 12:03 PM EDT Temperature - - Respiratory Rate - - Oxygen Saturation - - Inhaled Oxygen Concentration - - Weight 85.5 kg (188 lb 7.9 oz) 09/19/2024 12:03 PM EDT Height 165.1 cm (5' 5 ) 03/20/2012 8:53 AM EST Body Mass Index - - Plan of Treatment Upcoming Encounters Date Type Department Care Team (Late st Contact Info) Description 03/23/2025 12:20 PM EST Office Visit Endocrinology [address] [place] [address] Irina Haque MD [address] [place] [address] 6 month follow up Health Maintenance Due Date Last Done Comments Diabetic Foot Exam 1999 Dilated Retinal Exam 1999 Annual PCP Team Chronic Dise ase Visit 2007 Anxiety Screening 2007 Depression Screening 2007 HIV Screening 2007 Hepatitis C Screening 2007 Pneumococcal Vaccine (1 of 2 - PCV) 2008 Cervical Cancer Screening 2010 HPV Vaccine (1 - 3-dose SCDM series) 2016 Medicare Advantage Annual We llness Visit 05/14/2024 Urine Albumin:Creatinine Ratio 10/18/2024 0 10/19/2023, 12/26/2022, 05/08/2022, Additional history exists Influenza Vaccine (#1) 2025 , 04/05/2022, 02/27/2021, Additional history exists HbA1C 03/22/2025 09/19/2024, 010 01/2025, 02/18/2024, Additional history exists LDL Cholesterol 05/22/2025 05/22/2024 DTaP,Tdap,Td Vaccine (8 - Td or Tdap) 02/27/2031 02/27/2021, 01/17/2018, 07/24/1994, Additional history exists Hepatitis B Vaccine Completed 05/09/2002, 12/17/2001, 11/06/2001 Procedures Procedure Name Priority Date/Time Associated Diagnosis Comments HEMOGLOBIN A1C (POC) Routine 09/19/2024 12:07 PM EDT LIPID PANEL, NONFASTING Routine 05/22/2024 2:09 PM EST Type 2 diabetes mellitus without complication, without long-term current use of insulin (HCC) from Last 3 Months or Most Recently Relevant to Health Maintenance Results * (ABNORMAL) HEMOGLOBIN A1C (POC) (09/19/2024 12:07 PM EDT) Hemoglobin A1C (POCT) 6.9(A) 4.3 - 5.6 % [facility] Comment: Location:[facility], [address] [place] [address] Point of care (POC) Hemoglobin A1c (HGBA1C) testing is intended to assess glucose control and provide a management tool for patients known to have diabetes and their healthcare providers. Target HGBA1C levels may depend on specific clinical circumstances. POC HGBA1C is not intended for use as a diagnostic or screening test; laboratory-based testing should be used for diagnostic purposes. The following information is supplemental and may not be applicable to specific diabetes management situations: The POC device district administrative assistant provides a normal range of 4.2% to 6.5% for the HGBA1C POC test. However, the [place] Diabetes Association guidelines indicate that patients with HGBA1C in the range of 5.7% to 6.4% are at increased risk for development of diabetes and that intervention by lifestyle modification may be beneficial. A HGBA1C level greater than or equal to 6.5% is considered diagnostic of diabetes, pending confirmatory testing. Use of HGBA1C testing to evaluate glucose control may not be appropriate for patients with hemoglobin variants or other conditions (e.g. anemia) that alter red blood cell lifespan. 09/19/2024 12:0 7 PM EDT us Irina Haque MD POC TESTING Final Result [facility] POINT OF CARE [facility] [address] [place], [place] * (ABNORMAL) LIPID PANEL, NONFASTING (05/22/2024 2:09 PM EST) Total Cholesterol, Nonfasting 257(H) <200 mg/dL 05/23/2024 12:29 AM EST [facility] Comment: <200 mg/dL, Desirable 200-239 mg/dL, Borderline high >239 mg/dL, High Triglycerides, Nonfasting 174(H) <150 mg/dL 05/23/2024 12:29 AM [facility] Comment: <150 mg/dL, Normal 150-199 mg/dL, Borderline high 200-499 mg/dL, High >499 mg/dL, Very high HDL Cholesterol, Nonfasting 47 >39 mg/dL 05/23/2024 12:29 AM [facility] Comment: 40-59 mg/dL, Acceptable >59 mg/dL, High: Negative risk factor for coronary heart disease <40 mg/dL, Low: Positive risk factor for coronary heart disease LDL Cholesterol Calculated, Nonfasting 175(H) <100 mg/dL 05/23/2024 12:29 AM [facility] Comment: <100 mg/dL, Optimal 100-129 mg/dL, Near optimal/above optimal 130-159 mg/dL, Borderline high 160-189 mg/dL, High >189 mg/dL, Very high Secondary prevention optimal LDL Cholesterol levels are recommended to be < 70 mg/dL Non HDL Cholesterol, Nonfasting 210(H) <130 mg/dL 05/23/2024 12:29 AM EST [facility] Comment: <130 mg/dL, Optimal 130-159 mg/dL, Near optimal/above optimal 160-189 mg/dL, Borderline high 190-219 mg/dL, High >219 mg/dL, Very high Secondary prevention optimal non HDL Cholesterol levels are recommended to be <100 mg/dL VLDL Cholesterol, Nonfasting 35(H) <30 mg/dL 05/23/2024 12:29 AM EST [facility] Total Chol/HDL Ratio, Nonfasting 5.47(H) <5.10 mg/dL 05/23/2024 12:29 AM EST [facility] LDL/HDL Ratio, Nonfasting 3.72(H) <2.54 mg/dL 05/23/2024 12:29 AM EST [facility] Comment: Reference: 1. National Cholesterol Education Program ATP III Guideline At-A-Glance Quick Desk Reference: National Heart, Lung, and Blood [place]. National Institutes of Health. 2001: NIH Publication No. 01-3305. 2. An International Atherosclerosis Society position paper: global recommendations for the management of dyslipidemia: executive summary, Atherosclerosis. 2014: 232(2):410-413. Blood BLOOD SPECIMEN / Unknown Venipuncture / Unknown 05/22/2024 2:09 PM EST 05/22/2024 2:09 PM EST us Irina Haque MD LABORATORY Final Result [facility] [address] [place] [address], from Last 3 Months or Most Recently Relevant to Health Maintenance Insurance Care Teams Winchman/Crane Operator Relationship Specialty Start Date End Date Tevin Weinberg PCP - General Family Medicine 03/18/12
--- OUTSIDE RECORDS SUMMARY | 2025-01-07 14:48 | XMS_ITS | Encounter Summary ---
Author Organization [facility] Address [address] [place] [place] [address] Care Team Providers Care Engine Lathe Tender Name Role Phone Blanco Gutierrez MD Primary Care Provider [phone] Blanco Gutierrez MD Primary Care Provider [phone] Ana Lucero STOCK REPLENISHER Unavailable [phone] Marian Huitron RN Unavailable [phone] Encounter Details Date Type Department Care Team (Late st Contact Info) Description 03/16/2023 Abstract [facility] [address] [place] [phone] Barrington Vargas MD [address] [place] [phone] Social History Tobacco Use Types Packs/Day Years Used Date Smoking Tobacco: Never Smokeless Tobacco: Never Tobacco Cessation:Counseling Given: Not Answered Alcohol Use Standard Drinks/Week Comments Never 0 (1 standard drink = 0.6 oz pur e alcohol) Caffeine: > 4 cups/day Comments No Sex and Gender Information Value Date Recorded Sex Assigned at Not on file Legal Sex Female 6:36 PM EDT Gender Identity Not on file Sexual Orientation Not on file documented as of this encounter Plan of Treatment Upcoming Encounters Date Type Department Care Team (Late st Contact Info) Description 01/15/2025 1:40 PM EDT Clinical Support [address] [place] [phone] 01/28/2025 9:00 AM EDT Office Visit [facility] [address] [place] [phone] Sotero Saundra, SENIOR PACKAGING ENGINEER-ENVIRONMENTAL MARKETING REPRESENTATIVE [address] [facility] [address] [facility], [place] [phone] 04/16/2025 10:30 AM EST Office Visit [facility] [address] [place] [phone] Blanco Gutierrez MD [address] [place] [address] 01/12/2026 2:00 PM EDT Procedure Visit [facility] [address] [facility] [phone] Ankit Wilson, DO [address] [facility] [address] [place] [place], [place] [phone] documented as of this encounter Goals Goal Patient Goal Type Associated Problems Recent Progress Patient-Stated? Author Record Cardiac Symptoms Daily Care Plan Cardiac Symptom Monitoring No Ankit Wilson, DO Schedule Cardiology Consult Care Plan Needs Cardiology Consult No Ankit Wilson, DO Record Vitals Daily Care Plan Vitals Monitoring No Ankit Wilson, DO documented as of this encounter Visit Diagnoses Not on filedocumented in this encounter Additional Health Concerns Active Problems Noted Date Diagnosed Date Cardiac Symptom Monitoring 01/07/2023 Needs Cardiology Consult 01/07/2023 Vitals Monitoring 01/07/2023 documented as of this encounter Care Teams Engine Lathe Tender Relationship Specialty Start Date End Date Blanco Gutierrez MD PCP - General Family Medicine 11/01/22 06/04/23 Blanco Gutierrez MD [address] [place] [address] PCP - General Family Medicine 06/05/23 Ana Lucero, EZEQUIEL [address] [place] [address] Wheelchair Van Operator First Responder Family Medicine 01/18/24 01/31/24 Marian Huitron, RN [address] [place] [address] Registered Nurse Family Medicine 01/31/24 11/25/24 documented as of this encounter
--- OUTSIDE RECORDS SUMMARY | 2025-01-07 14:48 | XMS_ITS | Encounter Summary ---
Author Organization [facility] Address [address] [place] [address] Care Team Providers Care Carton Making Machinist Name Role Phone Blanco Gutierrez MD Primary Care Provider [phone] Marian Huitron RN Unavailable [phone] Reason for Referral * Imaging (Routine) - Authorized Specialty Diagnoses / Procedures Referred By Contac t Referred To Contact Diagnoses Generalized abdominal pain Procedures NM hepatobiliary w cholecystokinin Blanco Gutierrez MD [address] [place] [address] Phone: tel: fax: Referral ID Status Reason Start Date Expiration Date V isits Requested Visits Authorized [id number] Authorized 10/21/2024 04/19/2025 3 3 Encounter Details Date Type Department Care Team (Late st Contact Info) Description 10/17/2024 Results Follow-Up [facility] [address] [place] [address] Blanco Gutierrez MD [address] [place] [address] [place] abdomen limited Social History Tobacco Use Types Packs/Day Years [...] Never 01/31/2024 How often do you attend mandaen or anabaptist serv ices? Never 01/31/2024 Do you belong to any clubs o r organizations such as mandaen groups, unions, fraternal or athletic groups, or [...] and heating? Not hard at all 01/31/2024 [facility] of Occupat ional Health - Occupational Stress [...] place to sleep or slept in a [place] facility (including now)? No 04/10/2023 Housing Stability Vital Sign Answer Fer e Recorded In the last 12 months, was t here a time when you were not able to pay the mortgage or rent on time? No 01/31/2024 Number of Times Moved in the Last Year Not on fi le 01/31/2024 At any time in the past 12 m [facility], were you homeless or living in a [place] health [place] facility (including now)? No 01/31/2024 Comments No Sex and Gender Information Value Date Recorded Sex Assigned at Not on file Legal Sex Female 6:36 PM EDT Gender Identity Not on file Sexual Orientation Not on file documented as of this encounter Miscellaneous Notes * Telephone Encounter - Blanco Gutierrez MD - 10/21/2024 4:39 PM EDT Recommend check HIDA scan and UGI. Please fax orders to hospital. documented in this encounter Plan of Treatment Upcoming Encounters Date Type Department Care Team (Late st Contact Info) Description 01/15/2025 1:40 PM EDT Clinical Support [facility] [address] [facility] [place] [phone] 01/28/2025 9:00 AM EDT Office Visit [facility] [address] [place] [phone] Saundra Bey, BULK PICKER-CRAYON PAINTER [address] [place], [place] [phone] 04/16/2025 10:30 AM EST Office Visit [facility] [address] [place] [address] Blanco Gutierrez MD [address] [place] [address] 01/12/2026 2:00 PM EDT Procedure Visit [facility] [address] [place] [phone] Ankit Wilson, DO [address] [facility] [address] [place] [place], [place] [phone] Scheduled Orders Name Type Priority Associated Diagnoses Orde r Schedule NM hepatobiliary w cholecystokinin Imaging Routine Generalized abdominal pain Expected: 10/21/2024, Expires: 10/21/2025 [place] upper GI double contrast w KUB Imaging Routine Generalized abdominal pain GERD without esophagitis Expected: 10/21/2024, Expires: 10/21/2025 documented as of this encounter Goals Goal Patient Goal Type Associated Problems Recent Progress Patient-Stated? Author Record Cardiac Symptoms Daily Care Plan Cardiac Symptom Monitoring No Ankit Wilson, Schedule Cardiology Consult Care Plan Needs Cardiology Consult No Ankit Wilson, Record Vitals Daily Care Plan Vitals Monitoring No Ankit Wilson, documented as of this encounter Visit Diagnoses Diagnosis Generalized abdominal pain- Primary Abdominal pain, generalized GERD without esophagitis Esophageal reflux documented in this encounter Additional Health Concerns Active Problems Noted Date Diagnosed Date Cardiac Symptom Monitoring 01/07/2023 Needs Cardiology Consult 01/07/2023 Vitals Monitoring 01/07/2023 documented as of this encounter Care Teams Carton Making Machinist Relationship Specialty Start Date End Date Blanco Gutierrez MD [address] [place] [address] PCP - General Family Medicine 06/05/23 Marian Huitron, RN [address] [place] [address] Registered Nurse Family Medicine 01/31/24 11/25/24 documented as of this encounter
--- OUTSIDE RECORDS SUMMARY | 2025-01-07 14:48 | XMS_ITS | Encounter Summary ---
Author Organization [employer] Address [id number] [address] [place] [address] Care Team Providers Care Waiter/Waitress Captain Name Role Phone Blanco Gutierrez MD Primary Care Provider [phone] Encounter Details Date Type Department Care Team (Late st Contact Info) Description 06/14/2023 [facility]phone [facility] [address] [place] [phone] Luna Phillip LPN Social History Tobacco Use [...] Telephone Encounter - Luna Phillip LPN - 06/14/2023 3:05 PM EST SHE THINKS THE [facility] IS MAKING HER RETAIN WATER. * Telephone Encounter - Bernardino Cabrera MD - 06/14/2023 3:05 PM EST Have her report her weekly weight and see if it is trending up in 1 week documented in this encounter Plan of Treatment Upcoming Encounters Date Type Department Care Team (Late st Contact Info) Description 01/30/2025 10:45 AM EDT Office Visit [facility] Department of [facility] [address] [facility] [address] [place] [address] Bernardino Cabrera MD [address] [facility] [place] [address] 02/11/2025 1:45 PM EDT Office Visit [facility] [address] [address] Dena Fernandez, COMPLIANCE REPRESENTATIVE DEALER-HEALTH COACH [address] [facility], [address] [place] [address] 03/12/2025 10:00 AM EDT Office Visit [facility] [address] [facility] [address] [facility] [place] [address] Maggie Beal MD [address] [facility] [address] [place] [address] documented as of this encounter Visit Diagnoses Not on filedocumented in this encounter Additional Health Concerns Assessment Noted Time PHQ-9 Depression Total Score: 0 12/28/19 23 2:41 PM EDT documented as of this encounter Care Teams Waiter/Waitress Captain Relationship Specialty Start Date End Date Blanco Gutierrez MD PCP - General Family Medicine 05/31/24 documented as of this encounter
--- OUTSIDE RECORDS SUMMARY | 2025-01-07 14:48 | XMS_ITS | Encounter Summary ---
Author Organization [employer] Sys tem Address [facility] [place] [facility] [id number] [address] [place] [address] Care Team Providers Care Memorial Marker Designer Name Role Phone Blanco Gutierrez MD Primary Care Provider [phone] Encounter Details Date Type Department Care Team (Late st Contact Info) Description 02/08/2024 [facility]phone [facility] [address] [facility] [address] [place] [phone] Luna Phillip LPN Social History Tobacco Use [...] got money to buy more. Never True 01/12/2024 Within the past 12 months th e food we bought just didn't last and we didn't have money to get more. Never True 01/12/2024 Purpose - Life Answer Date Recorded Purpose [...] Telephone Encounter - Luna Phillip LPN - 02/08/2024 1:35 PM EDT PER PANTHER SHE HAS NOW DECREASED HER STRENSIQ DOSE TO 80 MG 3 X WEEKLY. * Telephone Encounter - Bernardino Cabrera MD - 02/08/2024 1:35 PM EDT Noted. Thank you documented in this encounter Plan of Treatment Upcoming Encounters Date Type Department Care Team (Late st Contact Info) Description 01/30/2025 10:45 AM EDT Office Visit [facility] A Department of [facility] [address] [facility] [address] [place] [address] Bernardino Cabrera MD [address] [facility] [place] [address] 02/11/2025 1:45 PM EDT Office Visit [facility] [address] [facility] [place] [address] Dena Fernandez, BOAT OUTFITTING SUPERVISOR-BRANDING MACHINE TENDER [address] [facility], [address] [place] [address] 03/12/2025 10:00 AM EDT Office Visit [facility] [address] [facility] [place] [place] [address] Maggie Beal MD [address] [facility] [address] [place] [address] documented as of this encounter Visit Diagnoses Not on filedocumented in this encounter Additional Health Concerns Assessment Noted Time PHQ-9 Depression Total Score: 0 12/28/19 23 2:41 PM EDT documented as of this encounter Care Teams Memorial Marker Designer Relationship Specialty Start Date End Date Blanco Gutirerez MD PCP - General Family Medicine 05/31/24 documented as of this encounter
--- OUTSIDE RECORDS SUMMARY | 2025-01-07 14:48 | XMS_ITS | Encounter Summary ---
Author Organization [facility] Sys tem Address [facility] [place]-[id number] [address] [place] [address] Care Team Providers Care Basket Grader Name Role Phone Blacno Gutierrez MD Primary Care Provider [phone] Encounter Details Date Type Department Care Team (Late st Contact Info) Description 09/25/2024 Orders Only [facility] [address] [address] Ann Burr Social History Tobacco Use Types Packs/Day Years [...] got money to buy more. Never True 05/31/2024 Within the past 12 months th e food we bought just didn't last and we didn't have money to get more. Never True 05/31/2024 Purpose - Life Answer Date Recorded Purpose [...] Visit [facility], A Department of [facility] [address] [facility] [address] [place] [address] Bernardino Cabrera MD [address] [facility], [address] [place] [address] 02/11/2025 1:45 PM EDT Office Visit [facility] [address] [place] [address] Dena Fernandez, EXERCISE PHYSIOLOGIST CERTIFIED-CONE CLASSIFIER TENDER [address] [facility], [address] [place] [address] 03/12/2025 10:00 AM EDT Office Visit [facility] [address] [place] [address] Maggie Beal MD [address] [facility] [address] [place] [address] documented as of this encounter Visit Diagnoses Not on filedocumented in this encounter Additional Health Concerns Assessment Noted Time PHQ-9 Depression Total Score: 0 12/28/19 23 2:41 PM EDT documented as of this encounter Care Teams Basket Grader Relationship Specialty Start Date End Date Blanco Gutierrez MD PCP - General Family Medicine 05/31/24 documented as of this encounter
--- OUTSIDE RECORDS SUMMARY | 2025-01-07 14:48 | XMS_ITS | Encounter Summary ---
Author Organization [employer] Sys tem Address [facility] [id number] [address] [place] [address] Care Team Providers Care Charge Accounts Audit Clerk Name Role Phone Blanco Gutierrez MD Primary Care Provider [phone] Encounter Details Date Type Department Care Team (Late st Contact Info) Description 06/15/2023 [facility] [address] [place] [phone] Luna Phillip LPN Social History Tobacco Use [...] encounter Miscellaneous Notes * Telephone Encounter - uLna Phillip LPN - 06/15/2023 3:03 PM EST Pt also c/o extreme hunger while on the strensiq. * Telephone Encounter - Bernardino Cabrera MD - 06/15/2023 3:03 PM EST I think she is off / strensiq on hold. Please cross check. * Telephone Encounter - Luna Phillip LPN - 06/15/2023 3:03 PM EST PLEASE SEE 06/15 MESSAGE. SHE REPORTS TAKING STRENSIQ. * Telephone Encounter - Bernardino Cabrera MD - 06/15/2023 3:03 PM EST Noted. documented in this encounter Plan of Treatment Upcoming Encounters Date Type Department Care Team (Late st Contact Info) Description 01/30/2025 10:45 AM EDT Office Visit [facility] A Department of [facility] [address] [facility] [address] [place] [phone] Bernardino Cabrera MD [address] [facility] [place] [address] 02/11/2025 1:45 PM EDT Office Visit [facility] [address] [place] [address] Dena Fernandez, FOOD AND NUTRITION SUPERVISOR-LATENT PRINT EXAMINER [address] [facility], [address] [place] [address] 03/12/2025 10:00 AM EDT Office Visit [facility] [address] [facility] [address] [place] [address] Maggie Beal MD [address] [facility] [address] [facility] [address] [place] [address] documented as of this encounter Visit Diagnoses Not on filedocumented in this encounter Additional Health Concerns Assessment Noted Time PHQ-9 Depression Total Score: 0 12/28/19 23 2:41 PM EDT documented as of this encounter Care Teams Charge Accounts Audit Clerk Relationship Specialty Start Date End Date Blanco Gutierrez MD PCP - General Family Medicine 05/31/24 documented as of this encounter
--- OUTSIDE RECORDS SUMMARY | 2025-01-07 14:48 | XMS_ITS | Encounter Summary ---
Author Organization [facility] Address [address] [place] [address] Care Team Providers Care Relay Shop Tester Name Role Phone Blanco Gutierrez MD Primary Care Provider [phone] Encounter Details Date Type Department Care Team (Late st Contact Info) Description 01/07/2025 Bamboo flowsheet [facility] [address] [place] [address] Ankit Wilson DO [address] [facility] [address] [place], [facility] Social History Tobacco Use Types Packs/Day Years [...] Never 01/31/2024 How often do you attend moravian or rastafarian serv ices? Never 01/31/2024 Do you belong to any clubs o r organizations such as moravian groups, unions, fraternal or athletic groups, or [...] and heating? Not hard at all 01/31/2024 [facility] - Occupational Stress [...] place to sleep or slept in a long term (including now)? No 04/10/2023 Housing Stability Vital Sign Answer Fer e Recorded In the last 12 months, was t here a time when you were not able to pay the mortgage or rent on time? No 01/31/2024 Number of Times Moved in the Last Year Not on fi le 01/31/2024 At any time in the past 12 m [facility], were you homeless or living in a long term (including now)? No 01/31/2024 Comments No Sex and Gender Information Value Date Recorded Sex Assigned at Not on file Legal Sex Female 6:36 PM EDT Gender Identity Not on file Sexual Orientation Not on file documented as of this encounter Plan of Treatment Upcoming Encounters Date Type Department Care Team (Late st Contact Info) Description 01/15/2025 1:40 PM EDT Clinical Support [facility] [place] [facility] [address] [place] [address] [place] [address] 01/28/2025 9:00 AM EDT Office Visit [facility] [place] [facility] [address] [place] [address] Saundra Bey, MEETING COORDINATOR-COMMERCIAL PRODUCER [address] [facility] [place] [address] 04/16/2025 10:30 AM EST Office Visit [facility] [address] [place] [address] Blanco Gutierrez MD [address] [place] [address] 01/12/2026 2:00 PM EDT Procedure Visit [facility] [address] [facility] [place] [phone] Ankit Wilson, [address] [facility] [place] [address] documented as of this encounter Goals Goal Patient Goal Type Associated Problems Recent Progress Patient-Stated? Author Record Cardiac Symptoms Daily Care Plan Cardiac Symptom Monitoring No Ankit Wilson, DO Schedule Cardiology Consult Care Plan Needs Cardiology Consult No SteveAnkit lee, DO Record Vitals Daily Care Plan Vitals Monitoring No SteveAnkit lee, DO documented as of this encounter Visit Diagnoses Not on filedocumented in this encounter Additional Health Concerns Active Problems Noted Date Diagnosed Date Cardiac Symptom Monitoring 01/07/2023 Needs Cardiology Consult 01/07/2023 Vitals Monitoring 01/07/2023 documented as of this encounter Care Teams Relay Shop Tester Relationship Specialty Start Date End Date Blanco Gutierrez MD [address] [place] [address] PCP - General Family Medicine 06/05/23 documented as of this encounter
--- OUTSIDE RECORDS SUMMARY | 2025-01-07 14:48 | XMS_ITS | Encounter Summary ---
Author Organization [facility] Address [address] [place] [address] Care Team Providers Care Car Dispatcher Name Role Phone Blanco Gutierrez MD Primary Care Provider [phone] Marian Huitron RN Unavailable [phone] Encounter Details Date Type Department Care Team (Late st Contact Info) Description 10/17/2024 External Result Encounter [facility] [address] [place] [address] Blanco Gutierrez MD [address] [place] [address] Social History Tobacco Use Types Packs/Day Years [...] Never 01/31/2024 How often do you attend holiness or mandaeism serv ices? Never 01/31/2024 Do you belong to any clubs o r organizations such as holiness groups, unions, fraternal or athletic groups, or [...] and heating? Not hard at all 01/31/2024 [facility] [place] of Occupat ional Health - Occupational Stress [...] place to sleep or slept in a retirement (including now)? No 04/10/2023 Housing Stability Vital Sign Answer Fer e Recorded In the last 12 months, was t here a time when you were not able to pay the mortgage or rent on time? No 01/31/2024 Number of Times Moved in the Last Year Not on fi le 01/31/2024 At any time in the past 12 m [facility], were you homeless or living in a retirement (including now)? No 01/31/2024 Comments No Sex and Gender Information Value Date Recorded Sex Assigned at Not on file Legal Sex Female 6:36 PM EDT Gender Identity Not on file Sexual Orientation Not on file documented as of this encounter Plan of Treatment Upcoming Encounters Date Type Department Care Team (Late st Contact Info) Description 01/15/2025 1:40 PM EDT Clinical Support VERONICA HERZOG [address] [place] [address] [place] [address] 01/28/2025 9:00 AM EDT Office Visit [facility] [place] [facility] [address] [place] [address] Saundra Bey, RAJ-DIRECTOR [facility] [address] [place], [place] [address] 04/16/2025 10:30 AM EST Office Visit [facility] [address] [place] [address] Blanco Gutierrez MD [address] [place] [address] 01/12/2026 2:00 PM EDT Procedure Visit [facility] [address] [address] Ankit Wilson DO [address] [facility] [address] [place], [place] [phone] documented as of this encounter Goals Goal [...] Name Priority Date/Time Associated Diagnosis Comments US ABDOMEN LIMITED 10/17/2024 8: 20 AM EDT documented in this encounter Results * US abdomen limited (10/17/2024 8:20 AM EDT) Anatomical Region Laterality Modality Abdomen Ultrasound 10/17/2024 8:20 AM EDT Narrative 10/17/2024 8:19 AM EDT THIS EXAM WAS PERFORMED AT [facility] History: Abdominal pain Exam/Technique: Multiple sonographic images of the abdomen were obtained. Comparison: 06/28/2022. Comparison is also made to a CT abdomen pelvis dated 08/13/2024 Findings: Gallbladder shows no evidence of shadowing calculi, pericholecystic fluid, or gallbladder wall thickening. No intrahepatic or extrahepatic biliary duct dilatation is seen. The common bile duct measured 5 mm. Evidence of hepatic steatosis is again seen. No hepatic masses are identified. The visualized portions of the pancreas are unremarkable. IMPRESSION: * Normal gallbladder * Hepatic steatosis Finalized by Erickson Elder MD on 10/17/2024 8:19 AM Procedure Note Radiology, Radiologist, - 10/17/2024 THIS EXAM WAS PERFORMED AT [facility] History: Abdominal pain Exam/Technique: Multiple sonographic images of the abdomen wereobtained. Comparison: 06/28/2022. Comparison is also made to a CT abdomen pelvisdated 08/13/2024 Findings: Gallbladder shows no evidence of shadowing calculi,pericholecystic fluid, or gallbladder wall thickening. No intrahepatic orextrahepatic biliary duct dilatation is seen. The common bile ductmeasured 5 mm. Evidence of hepatic steatosis is again seen. No hepatic masses areidentified. The visualized portions of the pancreas are unremarkable. IMPRESSION: * Normal gallbladder * Hepatic steatosis Finalized by Erickson Elder MD on 10/17/2024 8:19 AM Blanco Gutierrez MD IM US PROCEDURES Final Result documented in this encounter Visit Diagnoses Not on filedocumented in this encounter Additional Health Concerns Active Problems Noted Date Diagnosed Date Cardiac Symptom Monitoring 01/07/2023 Needs Cardiology Consult 01/07/2023 Vitals Monitoring 01/07/2023 documented as of this encounter Care Teams Car Dispatcher Relationship Specialty Start Date End Date Blanco Gutierrez MD [address] [place] [address] PCP - General Family Medicine 06/05/23 Marian Huitron, RN [address] [place] [address] Registered Nurse Family Medicine 01/31/24 11/25/24 documented as of this encounter
--- OUTSIDE RECORDS SUMMARY | 2025-01-07 14:48 | XMS_ITS | Encounter Summary ---
Author Organization [facility] Sys tem Address [facility] [id number] [address] [place] [address] Care Team Providers Care Sole Rougher Name Role Phone Blanco Gutierrez MD Primary Care Provider [phone] Encounter Details Date Type Department Care Team (Late st Contact Info) Description 09/26/2024 Orders Only [facility] [address] [address] Ann Burr Mild intermittent asthma without complication Social History [...] Visit [facility], A Department of [facility] [address] [facility] [address] [place] [address] Bernardino Cabrera MD [address] [facility], [address] [place] [address] 02/11/2025 1:45 PM EDT Office Visit [facility] [address] [facility] [facility] [place] [address] Dena Fernandez, SUPERVISOR ACCOUNTS RECEIVABLE-NATURAL RESOURCES TECHNICIAN [address] [facility], [address] [place] [address] 03/12/2025 10:00 AM EDT Office Visit [facility] [address] [facility] [address] [place] [address] Maggie Beal MD [address] [facility] [address] [place], [place] [address] documented as of this encounter Visit Diagnoses Diagnosis Mild intermittent asthma without complication documented in this encounter Additional Health Concerns Assessment Noted Time PHQ-9 Depression Total Score: 0 12/28/19 23 2:41 PM EDT documented as of this encounter Care Teams Sole Rougher Relationship Specialty Start Date End Date Blanco Gutierrez MD PCP - General Family Medicine 05/31/24 documented as of this encounter
--- OUTSIDE RECORDS SUMMARY | 2025-01-07 14:48 | XMS_ITS | Encounter Summary ---
Author Organization [facility] [employer] Address [facility] [place]-[id number] [address] [place] [address] Care Team Providers Care Combat Control Manager Name Role Phone Blanco Gutierrez MD Primary Care Provider [phone] Encounter Details Date Type Department Care Team (Late st Contact Info) Description 09/24/2023 Orders Only [facility] [address] [place] [phone] Luna Phillip LPN Social History Tobacco Use [...] got money to buy more. Never True 07/17/2023 Within the past 12 months th e food we bought just didn't last and we didn't have money to get more. Never True 07/17/2023 Purpose - Life Answer Date Recorded Purpose [...] Visit [facility], A Department of [facility] [address] [facility] [address] [place] [address] Bernardino Cabrera MD [address] [facility] [place] [address] 02/11/2025 1:45 PM EDT Office Visit [facility] [address] [place] [address] Dena Fernandez, OFFICE SERVICES CLERK-PROVIDER ENROLLMENT SPECIALIST [address] [facility], [address] [place] [address] 03/12/2025 10:00 AM EDT Office Visit [facility] [address] [facility] [address] [place] [address] Maggie Beal MD [address] [facility] [address] [place] [address] documented as of this encounter Visit Diagnoses Not on filedocumented in this encounter Additional Health Concerns Assessment Noted Time PHQ-9 Depression Total Score: 0 12/28/19 23 2:41 PM EDT documented as of this encounter Care Teams Combat Control Manager Relationship Specialty Start Date End Date Blanco Gutierrez MD PCP - General Family Medicine 05/31/24 documented as of this encounter
--- OUTSIDE RECORDS SUMMARY | 2025-01-07 14:48 | XMS_ITS | Encounter Summary ---
Author Organization [facility] [employer] [facility] Sys [facility] Address [facility] [place] [place][id number] [address] [place] [address] Care Team Providers Care Tester Operator Name Role Phone Blanco Gutierrez MD Primary Care Provider [phone] Encounter Details Date Type Department Care Team (Late st Contact Info) Description 06/13/2021 Orders Only [facility] [address] [facility] [address] [place] [phone] Sheryl Verde Hearing loss, unspecified hearing loss type, unspecified laterality; Tinnitus, unspecified laterality Social History Tobacco Use Types Packs/Day Years [...] have Coronavirus / COVID-19? No / Unsure 06/13/2021 8:32 AM EST documented as of this encounter Plan of Treatment Upcoming Encounters Date Type Department Care Team (Late st Contact Info) Description 01/30/2025 10:45 AM EDT Office Visit [facility] A Department of [facility] [address] [facility] [address] [place] [address] Bernardino Cabrera MD [address] [facility], [address] [place] [address] 02/11/2025 1:45 PM EDT Office Visit [facility] [address] [facility] [place] [phone] Dena Fernandez, QUALITY PROCESS AUDITOR-COPIER OPERATOR [address] [facility], [address] [place] [address] 03/12/2025 10:00 AM EDT Office Visit [facility] [address] [facility] [address] [place] [address] Maggie Beal MD [address] [facility] [address] [place] [address] documented as of this encounter Procedures Procedure Name Priority Date/Time Associated Diagnosis Comments TINNITUS EVALUATION Routine 08/02/2021 Hearing loss, unspecified hearing loss type, unspecified laterality Tinnitus, unspecified laterality AUDIOMETRY WITH TYMPANOMETRY Routine 08/02/2021 Hearing loss, unspecified hearing loss type, unspecified laterality Tinnitus, unspecified laterality documented in this encounter Results * Audiometry with tympanometry (08/02/2021) us Gianluca Miranda MD AUDIOLOGY SERVICES ORDERABLES F inal Result * Tinnitus evaluation (08/02/2021) us Gianluca Miranda MD AUDIOLOGY SERVICES ORDERABLES F inal Result documented in this encounter Visit Diagnoses Diagnosis Hearing loss, unspecified hearing loss type, unspecified laterality Tinnitus, unspecified laterality documented in this encounter Care Teams Tester Operator Relationship Specialty Start Date End Date Blanco Gutierrez MD PCP - General Family Medicine 05/31/24 documented as of this encounter
--- OUTSIDE RECORDS SUMMARY | 2025-01-07 14:48 | XMS_ITS | Encounter Summary ---
Author Organization [employer] Sys tem Address [id number] [address] [place] [address] Care Team Providers Care Coding Clerk Name Role Phone Blanco Gutierrez MD Primary Care Provider [phone] Encounter Details Date Type Department Care Team (Late st Contact Info) Description 12/10/2023 [facility]phone [facility] [address] [facility] [address] [place] [phone] Luna Phillip LPN Social History Tobacco Use [...] got money to buy more. Never True 10/17/2023 Within the past 12 months th e food we bought just didn't last and we didn't have money to get more. Never True 10/17/2023 Purpose - Life Answer Date Recorded Purpose [...] Telephone Encounter - Luna Phillip LPN - 12/10/2023 2:32 PM EDT PT WANTS TO DISCUSS HER STRENSIQ DOSE. SHE'S HAVING TROUBLE GIVING HERSELF THE INJECTIONS AND WANTSA LOWER DOSE. * Telephone Encounter - Bernardino Cabrera MD - 12/10/2023 2:32 PM EDT Okay to try the injection 1 to 2 times a week and report back * Telephone Encounter - Luna Phillip LPN - 12/10/2023 2:32 PM EDT PT IS CURRENTLY TAKING 170 MG 3X WEEKLY. SHE WANTS TO DECREASE TO 160 MG 3X WEEKLY BECAUSE THAT'S 3VIALS EACH TIME. * Telephone Encounter - Bernardino Cabrera MD - 12/10/2023 2:32 PM EDT Ok with me. documented in this encounter Plan of Treatment Upcoming Encounters Date Type Department Care Team (Late st Contact Info) Description 01/30/2025 10:45 AM EDT Office Visit [facility], A Department of [facility] [address] [facility] [address] [place] [phone] Bernardino Cabrera MD [address] [facility] [place] [address] 02/11/2025 1:45 PM EDT Office Visit [facility] [address] [place] [address] Dena Fernandez, BUSINESS CONTINUITY GLOBAL DIRECTOR-RESOURCE PARAPROFESSIONAL [address] [facility] [place] [address] 03/12/2025 10:00 AM EDT Office Visit [facility] [address] [place] [address] Maggie Beal MD [address] [facility] [address] [place] [address] documented as of this encounter Visit Diagnoses Not on filedocumented in this encounter Additional Health Concerns Assessment Noted Time PHQ-9 Depression Total Score: 0 12/28/19 23 2:41 PM EDT documented as of this encounter Care Teams Coding Clerk Relationship Specialty Start Date End Date Blanco Gutierrez MD PCP - General Family Medicine 05/31/24 documented as of this encounter
--- OUTSIDE RECORDS SUMMARY | 2025-01-07 14:48 | XMS_ITS | Encounter Summary ---
Author Organization [facility] Address [address] [place] [address] Care Team Providers Care Landfill Gas Technician Name Role Phone Blanco Gutierrez MD Primary Care Provider [phone] Ana Lucero EMBOSSING CALENDER OPERATOR Unavailable [phone] Marian Huitron RN Unavailable [phone] Encounter Details Date Type Department Care Team (Late st Contact Info) Description 12/21/2023 Clinisync Result Encounter [facility] Unsolicited Geoffrey Wilson, DO [address] [place] [address] Social History Tobacco Use Types Packs/Day Years Used Date Smoking Tobacco: Never Smokeless Tobacco: Never Alcohol Use Standard Drinks/Week Comments Never 0 (1 standard drink = 0.6 oz pur e alcohol) Caffeine: > 4 cups/day Humiliation, Afraid, Rape, and Kick questionnair e Answer Date Recorded Within the last year, have y ou been afraid of your partner or ex-partner? No 04/10/2023 Within the last year, have y ou been humiliated or emotionally abused in other ways by your partner or ex-partner? No Within the last year, have y ou been kicked, hit, slapped, or otherwise physically hurt by your partner or ex-partner? No 04/10/2023 Within the last year, have y ou been raped or forced to have any kind of sexual activity by your partner or ex-partner? No 04/10/2023 Social Connection and Isolation Panel [NHANES] A nswer Date Recorded In a typical week, how many times do you talk on the phone with family, friends, or neighbors? Once a week 04/10/2023 How often do you get together with friends or re latives? Never 04/10/2023 How often do you attend synagogue or protestant serv ices? Never 04/10/2023 Do you belong to any clubs o r organizations such as synagogue groups, unions, fraternal or athletic groups, or school groups? No 04/10/2023 How often do you attend meet ings of the clubs or organizations you belong to? Never 04/10/2023 Are you , , di vorced, , never , or living with a partner? Never 04/10/2023 AUDIT-C Answer Date Recorded Q1: How often [...] food, housing, medical care, and heating? Not very hard 04/10/2023 [facility] - Occupational Stress Questionnaire Answer Date Recorded Do you feel stress - tense, restless, nervous, or anxious, or unable to sleep at night because your mind is troubled all the time - these days? To some extent 04/10/2023 Exercise Vital Sign Answer Date Recorde d On average, how many days pe r week do you engage in moderate to strenuous exercise (like a brisk walk)? 1 day 04/10/2023 On average, how many minutes do you engage in exercise at this level? 10 min 04/10/2023 Hunger Vital Sign Answer Date Recorded Within the past 12 months, y ou worried that your food would run out before you got the money to buy more. Never true 04/10/20 23 Within the past 12 months, t he food you bought just didn't last and you didn't have money to get more. Never true 04/10/2023 PRAPARE - Transportation Answer Date Re corded In the past 12 months, has l ack of transportation kept you from medical appointments or from getting medications? No 03/15 In the past 12 months, has l ack of transportation kept you from meetings, work, or from getting things needed for daily living? No 04/10/2023 Housing Stability Vital Sign Answer [...] place to sleep or slept in a detention (including now)? No 04/10/2023 Comments No Sex and Gender Information Value Date Recorded Sex Assigned at Not on file Legal Sex Female 6:36 PM EDT Gender Identity Not on file Sexual Orientation Not on file documented as of this encounter Plan of Treatment Upcoming Encounters Date Type Department Care Team (Late st Contact Info) Description 01/15/2025 1:40 PM EDT Clinical Support [facility] [address] [place] [address] 01/28/2025 9:00 AM EDT Office Visit [facility] [place] [facility] [address] [place] [address] Saundra Bey, GELATIN POWDER [facility] [address] [place] [address] 04/16/2025 10:30 AM EST Office Visit [facility] [address] [place] [address] Blanco Gutierrez MD [address] [place] [id number] 01/12/2026 2:00 PM EDT Procedure Visit [facility] [address] [place] [address] Geoffrey Wilson DO [address] [place] [address] documented as of this encounter Goals Goal Patient Goal Type Associated Problems Recent Progress Patient-Stated? Author Record Cardiac Symptoms Daily Care Plan Cardiac Symptom Monitoring No Geoffrey Wilson DO Schedule Cardiology Consult Care Plan Needs Cardiology Consult No Geoffrey Wilson DO Record Vitals Daily Care Plan Vitals Monitoring No Geoffrey Wilson DO documented as of this encounter Procedures Procedure Name Priority Date/Time Associated Diagnosis Comments US PELVIS W/ TRANSVAGINAL 12/21/2023 3:46 PM EDT documented in this encounter Results * US PELVIS W/ TRANSVAGINAL (12/21/2023 3:46 PM EDT) Anatomical Region Laterality Modality Other 12/21/2023 3:46 PM EDT Narrative 12/21/2023 3:48 PM EDT [facility] [place] [id number] Ultrasound Report Signed Patient: AIDA DUNN MR#: [id number] : 1990 Acct:[id number] Age/Sex: 33 / F ADM Date: 12/21/23 Loc: US Attending Dr: Geoffrey Wilson D.O. Ordering Physician: Geoffrey Wilson D.O. Date of Service: 12/21/23 Procedure(s): US pelvis w/ transvaginal Accession Number(s): [id number] cc: Geoffrey Wilson D.O.; Blanco Gutierrez M.D. The [address] [address] Patient Name: AIDA DUNN MRN: [id number] date: 1990 Sex: F Assigned Patient Location: US Current Patient Location: US Accession/Order Number: [id number] Exam Date: 12/21/2023 10:40 Report Date: 12/21/2023 15:46 At the request of: GEOFFREY WILSON Procedure: US pelvis w/ transvaginal EXAMINATION: US pelvis w/ transvaginal HISTORY: Menorrhagia With Regular Cycle COMPARISON: No relevant comparison available. TECHNIQUE: Transabdominal and/or transvaginal sonographic examination was performed as indicated by examination type. FINDINGS: UTERUS: Normal size and appearance. Uterus size: 9.4 x 4.7 x 6 x 3 cm ENDOMETRIUM: Normal homogeneous appearance. Endometrial thickness: 10 mm RIGHT OVARY: Contains numerous small, similar size follicles located in a peripheral distribution. Duplex Doppler demonstrates normal waveform and flow; resistive index 0.4. Ovary size: 3.2 x 2.2 x 2.7 cm LEFT OVARY: Contains numerous small, similar size follicles located in a peripheral distribution. Duplex Doppler demonstrates normal waveform and flow; resistive index 0.4. Ovary size: 3.4 x 2.7 x 2.9 cm CUL-DE-SAC: Unremarkable. No significant free fluid. BLADDER: Unremarkable. OTHER: None. US/US pelvis w/ transvaginal IMPRESSION: 1. Unremarkable uterus and endometrium. 2. Numerous follicles within both ovaries; nonspecific but the appearance can be seen with polycystic ovarian syndrome. Electronically authenticated by: UMANG DIAZ Date: 12/21/2023 15:46 Dictated By: Umang Diaz M.D. Signed By: 12/21/23 1548 DD/ 1546 TD/TT: Installation Supervisor: Procedure Note Radiology, Radiologist, MD - 12/21/2023 [place] [address] Ultrasound Report Signed Patient: ADITIAUGUST LMR#: [id number] : 1990Acct:[id number] Age/Sex: 33 / FADM Date: 12/21/23 Loc: US Attending Dr: Geoffrey Wilson D.O. Ordering Physician: Geoffrey Wilson D.O. Date of Service: 12/21/23 Procedure(s): US pelvis w/ transvaginal Accession Number(s): [id number] cc: Geoffrey Wilson D.O.; Blanco Gutierrez M.D. [address] [address] Patient Name: AIDA DUNN MRN: [id number] date: 1990 Sex: F Assigned Patient Location: US Current Patient Location: US Accession/Order Number: [id number] Exam Date: 12/21/2023 10:40 Report Date: 12/21/2023 15:46 At the request of: GEOFFREY WILSON Procedure: US pelvis w/ transvaginal EXAMINATION: US pelvis w/ transvaginal HISTORY: Menorrhagia With Regular Cycle COMPARISON: No relevant comparison available. TECHNIQUE: Transabdominal and/or transvaginal sonographic examination was performed as indicated by examination type. FINDINGS: UTERUS: Normal size and appearance. Uterus size: 9.4 x 4.7 x 6 x 3 cm ENDOMETRIUM: Normal homogeneous appearance. Endometrial thickness: 10 mm RIGHT OVARY: Contains numerous small, similar size follicles located in a peripheral distribution. Duplex Doppler demonstrates normal waveform andflow; resistive index 0.4. Ovary size: 3.2 x 2.2 x 2.7 cm LEFT OVARY: Contains numerous small, similar size follicles located in a peripheral distribution. Duplex Doppler demonstrates normal waveform andflow; resistive index 0.4. Ovary size: 3.4 x 2.7 x 2.9 cm CUL-DE-SAC: Unremarkable. No significant free fluid. BLADDER: Unremarkable. OTHER: None. US/US pelvis w/ transvaginal IMPRESSION: 1. Unremarkable uterus and endometrium. 2. Numerous follicles within both ovaries; nonspecific but the appearancecan be seen with polycystic ovarian syndrome. Electronically authenticated by: UMANG DIAZ Date: 12/21/2023 15:46 Dictated By: Umang Diaz M.D. Signed By:12/21/23 1548 DD/ 1546 TD/TT: Installation Supervisor: us Geoffrey Wilson DO [facility] Final Result documented in this encounter Visit Diagnoses Not on filedocumented in this encounter Additional Health Concerns Active Problems Noted Date Diagnosed Date Cardiac Symptom Monitoring 01/07/2023 Needs Cardiology Consult 01/07/2023 Vitals Monitoring 01/07/2023 documented as of this encounter Care Teams Landfill Gas Technician Relationship Specialty Start Date End Date Blanco Gutierrez MD [address] [place] [address] PCP - General Family Medicine 06/05/23 Ana Lucero, EMBOSSING CALENDER OPERATOR [address] [place] [address] [facility] 01/18/24 01/31/24 Marian Huitron, RN [address] [facility] [place] [address] Registered Nurse Family Medicine 01/31/24 11/25/24 documented as of this encounter
--- OUTSIDE RECORDS SUMMARY | 2025-01-07 14:48 | XMS_ITS | Encounter Summary ---
Author Organization [facility] Address [address] [place] [address] Care Team Providers Care Construction Area Manager Name Role Phone Blanco Gutierrez MD Primary Care Provider [phone] Ana Lucero ASIAN ART CURATOR Unavailable [phone] Marian Huitron RN Unavailable [phone] Encounter Details Date Type Department Care Team (Late st Contact Info) Description 06/11/2023 External Result Encounter [facility] [address] [place] [address] Blanco Gutierrez MD [address] [place] [address] Social History Tobacco Use Types Packs/Day Years [...] Never 04/10/2023 How often do you attend religious or muslim serv ices? Never 04/10/2023 Do you belong to any clubs o r organizations such as religious groups, unions, fraternal or athletic groups, or [...] care, and heating? Not very hard 04/10/2023 [facility] [place] of Occupat ional Health - Occupational Stress [...] place to sleep or slept in a correction (including now)? No 04/10/2023 Comments No Sex and Gender Information Value Date Recorded Sex Assigned at Not on file Legal Sex Female 6:36 PM EDT Gender Identity Not on file Sexual Orientation Not on file documented as of this encounter Miscellaneous Notes * Result Encounter Note - Vaishnavi Subramanian LPN - 06/11/2023 1:19 PM EST Left pt a detailed voicemail of results and told her to call office back with any questions. * Result Encounter Note - Vaishnavi Subramanian LPN - 06/11/2023 1:19 PM EST Faxed to PCP documented in this encounter Plan of Treatment Upcoming Encounters Date Type Department Care Team (Late st Contact Info) Description 01/15/2025 1:40 PM EDT Clinical Support [facility] [address] [place] [address] [place] [address] 01/28/2025 9:00 AM EDT Office Visit [facility] [address] [place] [address] Saundra Bey, CONSULTING IT ARCHITECT-CARE TEAM ASSISTANT [address] [facility] [address] [facility], [place] [id number] 04/16/2025 10:30 AM EST Office Visit [facility] [address] [place] [address] Blanco Gutierrez MD [address] [place] [address] 01/12/2026 2:00 PM EDT Procedure Visit [facility] [address] [facility] [address] [place] [id number] SteveAnkit lee, DO [address] [facility] [address] [place], [place] [id number] documented as of this encounter Goals Goal Patient Goal Type Associated Problems Recent Progress Patient-Stated? Author Record Cardiac Symptoms Daily Care Plan Cardiac Symptom Monitoring No Verna Wilsony, DO Schedule Cardiology Consult Care Plan Needs Cardiology Consult No SteveVerna leey, DO Record Vitals Daily Care Plan Vitals Monitoring No Ankit Wilson, DO documented as of this encounter Procedures Procedure Name Priority Date/Time Associated Diagnosis Comments TSH ([facility]) STAT 12/19/2023 10:29 AM EDT SERUM B HCG, 3RD I.S. ([facility]) STAT 12/19/2023 10:29 AM EDT CBC WITH AUTO DIFFERENTIAL STAT 12/19/2023 10:29 AM EDT PARTIAL THROMBOPLASTIN TIME, ACTIVATED STAT 12/19/2023 10:29 AM EDT PROTHROMBIN TIME-INR STAT 12/19/2023 10:29 AM EDT T4, FREE STAT 12/19/2023 10:29 AM EDT HEMOGLOBIN A1C STAT 12/19/2023 10:29 AM EDT SERUM B HCG, 3RD I.S. ([facility]) Routine 12/03/2023 1:56 PM EDT XR ABDOMEN 2 VIEWS SUPINE AND DECUBITUS 06/11/2023 1:16 PM EST LIPASE ([facility]) Routine 06/11/2023 12 :34 PM EST CBC WITH AUTO DIFFERENTIAL Routine 06/11/2023 12:34 PM EST AMYLASE Routine 06/11/2023 12:34 PM EST HEPATIC FUNCTION PANEL Routine 12:34 PM EST BASIC METABOLIC PANEL Routine 06/11/2023 12:34 PM EST documented in this encounter Results * T4, free (12/19/2023 10:29 AM EDT) FREE T4 1.14 0.61 - 1.60 ng/dL [facility] Comment:PERFORMED AT [place] [address], [place] [address] 12/19/2023 10:2 9 AM EDT 12/19/2023 10:34 AM EDT us Ankit Tseve DO LAB BLOOD ORDERABLES Final Resul t [facility] * TSH ([facility]) (12/19/2023 10:29 AM EDT) TSH 1.08 0.49 - 4.67 uIU/mL [facility] Comment:PERFORMED AT [place] [id number],[place] [address] 12/19/2023 10:2 9 AM EDT 12/19/2023 10:34 AM EDT Ankit Steve DO LAB BLOOD ORDERABLES Final Resul t Performing Organization Address City/[facility]/ZIP Co de Phone Number [facility] * SERUM B HCG, 3RD I.S. ([facility]) (12/19/2023 10:29 AM EDT) SERUM B HCG, 3RD I.S. <5 mIU/mL [facility] Comment: NEW REFERENCE RANGE WEEKS (SINCE LMP) [...] necessarily diagnostic for trophoblastic or nontrophoblastic neoplasms. PERFORMED AT [facility] [address] [facility]. [address],[place] [address] 12/19/2023 10:2 9 AM EDT 12/19/2023 10:34 AM EDT us NewsBasiso DO LAB BLOOD ORDERABLES Final Resul t [facility] * CBC auto differential (12/19/2023 10:29 AM EDT) WHITE BLOOD CELL COUNT, WBC 7.3 4.0 - 11.0 X10E9/L [facility] RED BLOOD CELL COUNT, RBC 4.62 3.80 - 5.20 X10E12/L [facility] HEMOGLOBIN 13.7 11.7 - 15.5 g/dL [facility] HEMATOCRIT 39.5 35 - 47 % [facility] MEAN CELL VOLUME, MCV 86 80 - 100 fL [facility] MEAN CELL HEMOGLOBIN, MCH 29.7 27 - 34 pg [facility] MEAN CELL HEMOGLOGIN CONCENTRATION, MCHC 34.7 32 - 36 g/dL [facility] RED CELL DISTRIBUTION WIDTH, RDW 12.1 11.5 - 15.0 % [facility] PLATELET COUNT 306 150 - 450 X10E9/L [facility] MEAN PLATELET VOLUME, MPV 8.0 7 - 12 fL [facility] % NEUTROPHILS 57.4 % [facility] % LYMPHOCYTES 35.6 % [facility] % MONOCYTES 4.4 % [facility] % EOSINOPHILS 2.0 % [facility] % BASOPHILS 0.6 % [facility] ABSOLUTE NEUTROPHIL 4.2 1.5 - 6.6 X10E9/L [facility] ABSOLUTE LYMPHOCYTE 2.6 1.0 - 3.5 X10E9/L [facility] ABSOLUTE MONOCYTE 0.3 0 - 0.9 X10E9/L [facility] ABSOLUTE EOSINOPHIL 0.1 0.0 - 0.4 X10E9/L [facility] ABSOLUTE BASOPHIL 0.0 0.0 - 0.2 X10E9/L [facility] Comment:PERFORMED AT [facility] [address],[place] [address] 12/19/2023 10:2 9 AM EDT 12/19/2023 10:34 AM EDT Ankit Wilson DO LAB BLOOD ORDERABLES Final Resul t [facility] * (ABNORMAL) Hemoglobin A1c (12/19/2023 10:29 AM EDT) [facility] HEMOGLOBIN A1C 7.0(H) 4.4 - 5.6 % [facility] Comment: NOTE ADA Guidelines Result HgbA1c Normal : less than 5.7 % Prediabetes : 5.7 % to 6.4 % Diabetes : > 6.4 % Use with caution in patients with abnormal hemoglobin variants as the half-life of red blood cells and in vivo glycation rates are affected. AVERAGE GLUCOSE 154 mg/dL [facility] Comment:PERFORMED AT [facility] [address],[place] [address] 12/19/2023 10:2 9 AM EDT 12/19/2023 10:34 AM EDT us Ankit Steve DO LAB BLOOD ORDERABLES Final Resul t Performing Organization Address City/[facility] Co de Phone Number [facility] * APTT (12/19/2023 10:29 AM EDT) APTT 36 26 - 37 sec [facility] Comment: NEW REFERENCE RANGE PERFORMED AT [address] [place] [address] 12/19/2023 10:2 9 AM EDT 12/19/2023 10:34 AM EDT us Ankit Steve DO LAB BLOOD ORDERABLES Final Resul t Performing Organization Address [facility] de Phone Number [facility] * Protime-INR (12/19/2023 10:29 AM EDT) PROTIME 12.5 9.8 - 13.2 sec [facility] Comment:NEW REFERENCE RANGE INR 1.1 0.8 - 1.1 [facility] Comment:PERFORMED AT [address] [place] [address] 12/19/2023 10:2 9 AM EDT 12/19/2023 10:34 AM EDT us Ankit Steve DO LAB BLOOD ORDERABLES Final Resul t Performing Organization Address City/[facility] Co de Phone Number [facility] * SERUM B HCG, 3RD I.S. ([facility]) (12/03/2023 1:56 PM EDT) SERUM B HCG, 3RD I.S. <5 mIU/mL [facility] Comment: NEW REFERENCE RANGE WEEKS (SINCE LMP) [...] necessarily diagnostic for trophoblastic or nontrophoblastic neoplasms. PERFORMED AT [facility] [address] [facility],[place] [address] 12/03/2023 1:56 PM EDT 12/03/2023 1:57 PM EDT us Ankit Steve DO LAB BLOOD ORDERABLES Final Resul t [facility] * XR abdomen 2 views supine and decubitus (06/11/2023 1:16 PM EST) Anatomical Region Laterality Modality Abdomen Radiographic Dulce ging 06/11/2023 1:16 PM EST Narrative 06/11/2023 1:15 PM EST THIS EXAM WAS PERFORMED AT [facility] Abdomen: HISTORY: Generalized abdominal pain. 3 views of the abdomen were obtained. Bowel gas pattern is nonspecific and nonobstructive. Is no free air. Colonic stool burden is moderate. No significant distention. IMPRESSION: Moderate colonic stool. Finalized by Edward العلي MD on 06/11/2023 1:15 PM Procedure Note Radiology, Radiologist, - 06/11/2023 THIS EXAM WAS PERFORMED AT [facility] Abdomen: HISTORY: Generalized abdominal pain. 3 views of the abdomen were obtained. Bowel gas pattern is nonspecific andnonobstructive. Is no free air. Colonic stool burden is moderate. Nosignificant distention. IMPRESSION: Moderate colonic stool. Finalized by Edward العلي MD on 06/11/2023 1:15 PM Blanco Gutierrez MD IMG XR PROCEDURES Final Result * (ABNORMAL) Hepatic function panel (06/11/2023 12:34 PM EST) ALKALINE PHOSPHATASE 2,983(H) 39 - 130 U/L [facility] AST 25 0 - 41 U/L [facility] ALT 16 0 - 31 U/L [facility] BILIRUBIN, TOTAL 0.3 0.3 - 1.2 mg/dL [facility] BILIRUBIN, DIRECT 0.1 0.0 - 0.4 mg/dL [facility] Comment: SPECIMEN HEMOLYZED, RESULTS DECREASED MODERATELY HEMOLYZED ALBUMIN 4.1 3.2 - 5.3 g/dL [facility] TOTAL PROTEIN 7.0 6.0 - 8.0 g/dL [facility] Comment:PERFORMED AT [address], [place] [address] 06/11/2023 12:3 4 PM EST 06/11/2023 12:35 PM EST Blanco Gutierrez MD LAB BLOOD ORDERABLES Final Resul t Performing Organization Address [facility] de Phone Number [facility] * LIPASE ([facility]) (06/11/2023 12:34 PM EST) LIPASE 22 11 - 82 U/L [facility] Comment:PERFORMED AT [place] [address], [place] [address] 06/11/2023 12:3 4 PM EST 06/11/2023 12:35 PM EST Blanco Gutierrez MD LAB BLOOD ORDERABLES Final Resul t Performing Organization Address City/[facility]/ZIP Co de Phone Number [facility] * (ABNORMAL) Basic metabolic panel (06/11/2023 12:34 PM EST) Sodium 137 134 - 146 mmol/L [facility] Potassium, Bld 4.4 3.5 - 5.0 mmol/L [facility] Comment: SPECIMEN HEMOLYZED, RESULTS INCREASED MODERATELY HEMOLYZED Chloride 104 98 - 109 mmol/L [facility] Carbon Dioxide 27 22 - 32 mmol/L [facility] Anion Gap 6 5 - 15 mmol/L [facility] BUN 10 5 - 23 mg/dL [facility] Creatinine 0.83 0.40 - 1.00 mg/dL [facility] Comment:METHOD TRACEABLE TO IDMS STANDARD Glucose 172(H) 65 - 99 mg/dL [facility] Calcium 9.2 8.5 - 10.5 mg/dL [facility] EGFR >90 >59 ml/min/1.7 3sq.m [facility] Comment: Reported eGFR is based on the CKD-EPI 2020 equation that does not use a race coefficient. PERFORMED AT [address], [place] [address] 06/11/2023 12:3 4 PM EST 06/11/2023 12:35 PM EST us Blanco Gutierrez MD LAB BLOOD ORDERABLES Final Resul t Performing Organization Address City/[facility]/ZIP Co de Phone Number [facility] * (ABNORMAL) Amylase (06/11/2023 12:34 PM EST) Pathologist [facility] AMYLASE 24(L) 28 - 100 U/L [facility] Comment:PERFORMED AT [address],[place] [address] 06/11/2023 12:3 4 PM EST 06/11/2023 12:35 PM EST Blanco Gutierrez MD LAB BLOOD ORDERABLES Final Resul t [facility] * (ABNORMAL) CBC auto differential (06/11/2023 12:34 PM EST) Pathologist [facility] WHITE BLOOD CELL COUNT, WBC 9.7 4.0 - 11.0 X10E9/L [facility] RED BLOOD CELL COUNT, RBC 4.86 3.80 - 5.20 X10E12/L [facility] HEMOGLOBIN 14.0 11.7 - 15.5 g/dL [facility] HEMATOCRIT 40.7 35 - 47 % [facility] MEAN CELL VOLUME, MCV 84 80 - 100 fL [facility] MEAN CELL HEMOGLOBIN, MCH 28.8 27 - 34 pg [facility] MEAN CELL HEMOGLOGIN CONCENTRATION, MCHC 34.4 32 - 36 g/dL [facility] RED CELL DISTRIBUTION WIDTH, RDW 12.6 11.5 - 15.0 % [facility] PLATELET COUNT 330 150 - 450 X10E9/L [facility] MEAN PLATELET VOLUME, MPV 8.0 7 - 12 fL [facility] % NEUTROPHILS 64.9 % [facility] % LYMPHOCYTES 24.0 % [facility] % MONOCYTES 5.0 % [facility] % EOSINOPHILS 5.5 % [facility] % BASOPHILS 0.6 % [facility] ABSOLUTE NEUTROPHIL 6.3 1.5 - 6.6 X10E9/L [facility] ABSOLUTE LYMPHOCYTE 2.3 1.0 - 3.5 X10E9/L [facility] ABSOLUTE MONOCYTE 0.5 0 - 0.9 X10E9/L [facility] ABSOLUTE EOSINOPHIL 0.5(H) 0.0 - 0.4 X10E9/L [facility] ABSOLUTE BASOPHIL 0.1 0.0 - 0.2 X10E9/L [facility] Comment:PERFORMED AT [facility] [address] [facility],[place] [address] 06/11/2023 12:3 4 PM EST 06/11/2023 12:35 PM EST us Blanco Gutierrez MD LAB BLOOD ORDERABLES Final Resul t [facility] documented in this encounter Visit Diagnoses Not on filedocumented in this encounter Additional Health Concerns Active Problems Noted Date Diagnosed Date Cardiac Symptom Monitoring 01/07/2023 Needs Cardiology Consult 01/07/2023 Vitals Monitoring 01/07/2023 documented as of this encounter Care Teams Construction Area Manager Relationship Specialty Start Date End Date Blanco Gutierrez MD [address] [place] [address] PCP - General Family Medicine 06/05/23 Ana [place]ero, ASIAN ART CURATOR [address] [place] [address] Dialysis Biomed Technician Family Medicine 01/18/24 01/31/24 Marian Huitron, RN [address] [place] [address] Registered Nurse Family Medicine 01/31/24 11/25/24 documented as of this encounter
--- OUTSIDE RECORDS SUMMARY | 2025-01-07 14:48 | XMS_ITS | Encounter Summary ---
Author Organization [facility] tem Address [id number] [address] [place] [address] Care Team Providers Care Third Loader Name Role Phone Blanco Gutierrez MD Primary Care Provider [phone] Encounter Details Date Type Department Care Team (Latest Contact Info) Description 12/26/2024 Travel Social History Tobacco Use Types Packs/Day Years [...] Visit [facility] A Department of [facility] [address] [facility] [address] [place] [address] Bernardino Cabrera MD [address] [facility] [place] [address] 02/11/2025 1:45 PM EDT Office Visit [facility] [address] [place] [address] Dena Fernandez, DIETETICS PROFESSOR-SUBSEA ENGINEER [address] [facility], [address] [place] [address] 03/12/2025 10:00 AM EDT Office Visit [facility] [address] [facility] [address] [place] [address] Maggie Beal MD [address] [facility] [address] [place] [address] documented as of this encounter Visit Diagnoses Not on filedocumented in this encounter Additional Health Concerns Assessment Noted Time PHQ-9 Depression Total Score: 0 12/28/19 23 2:41 PM EDT documented as of this encounter Care Teams Third Loader Relationship Specialty Start Date End Date Blanco Gutierrez MD PCP - General Family Medicine 05/31/24 documented as of this encounter
--- OUTSIDE RECORDS SUMMARY | 2025-01-07 14:48 | XMS_ITS | Encounter Summary ---
Author Organization [facility] tem Address [id number] [address] [place] [address] Care Team Providers Care Agency Cashier Name Role Phone Blanco Gutierrez MD Primary Care Provider [phone] Reason for Visit * Reason Comments Med Refill Encounter Details Date Type Department Care Team (Late st Contact Info) Description 05/29/2018 Refill Maternal- Medicine at [facility] [address] [place] [phone] Yaritza Sood APRN-CNP [address] [facility] [address] [place] [address] Type 2 diabetes mellitus affecting in first trimester, antepartum; Less than 8 weeks gestation of Social History Tobacco Use Types Packs/Day Years Used Date Smoking Tobacco: Never Smokeless Tobacco: Never Alcohol Use Standard Drinks/Week Comments No 0 (1 standard drink = 0.6 oz pur e alcohol) rarely Comments No Sex and Gender Information Value Date Recorded Sex Assigned at Female 10/28/2021 12:44 PM EDT Legal Sex Female 11:43 AM EDT Gender Identity Female 10/28/2021 12:44 PM EDT Sexual Orientation Straight 10/28/2021 12 :44 PM EDT documented as of this encounter Miscellaneous Notes * Telephone Encounter - JOURDAN Doll - 05/29/2018 1:51 AM EST Aida delivered last year and is no longer a patient at [facility] office. She needs to get a new RX from her PCP or other health care provider documented in this encounter Plan of Treatment Upcoming Encounters Date Type Department Care Team (Late st Contact Info) Description 01/30/2025 10:45 AM EDT Office Visit [facility] A Department of [facility] [address] [facility] [address] [place] [address] Bernardino Cabrera MD [address] [facility] [place] [address] 02/11/2025 1:45 PM EDT Office Visit [facility] [address] [facility] [place] [address] Dena Fernandez APRN-CNP [address] [facility], [address] [place] [address] 03/12/2025 10:00 AM EDT Office Visit [facility] [address] [facility] [address] [place] [address] Maggie Beal MD [address] [facility] [address] [place] [address] documented as of this encounter Visit Diagnoses Diagnosis Type 2 diabetes mellitus affecting in first trimester, antepartum Less than 8 weeks gestation of documented in this encounter Additional Health Concerns Infection Onset Date Last Indicated Resolved Time Enteric Rule-Out 07/18/2019 07/18/2019 07/25/2019 11:12 PM EDT Enteric Rule-Out 02/25/2020 02/25/2020 02/25/2020 10:46 PM EDT COVID-19 Rule-Out 08/03/2020 08/03/2020 08/04/2020 4:39 PM EDT COVID-19 Rule-Out 09/30/2020 09/30/2020 09/30/2020 10:19 AM EDT documented as of this encounter Care Teams Agency Cashier Relationship Specialty Start Date End Date Blanco Gutierrez MD PCP - General Family Medicine 05/31/24 documented as of this encounter
--- OUTSIDE RECORDS SUMMARY | 2025-01-07 14:48 | XMS_ITS | Encounter Summary ---
Author Organization [facility] Address [address] [place] [address] Care Team Providers Care Manager Rental Name Role Phone Blanco Gutierrez MD Primary Care Provider [phone] Ana Lucero TACK PULLER Unavailable [phone] Marian Huitron RN Unavailable [phone] Encounter Details Date Type Department Care Team (Late st Contact Info) Description 07/18/2023 Abstract [facility] [address] [place] [address] Blanco Gutierrez MD [address] [place] [address] Social History Tobacco Use Types Packs/Day Years [...] Never 04/10/2023 How often do you attend jewish or oriental orthodox serv ices? Never 04/10/2023 Do you belong to any clubs o r organizations such as jewish groups, unions, fraternal or athletic groups, or [...] care, and heating? Not very hard 04/10/2023 [facility] of Occupat ional [facility] - Occupational Stress Questionnaire Answer Date Recorded [...] a long term (including now)? No 04/10/2023 Comments No Sex and Gender Information Value Date Recorded Sex Assigned at Not on file Legal Sex Female 6:36 PM EDT Gender Identity Not on file Sexual Orientation Not on file documented as of this encounter Plan of Treatment Upcoming Encounters Date Type Department Care Team (Late st Contact Info) Description 01/15/2025 1:40 PM EDT Clinical Support [facility] [address] [place] [address] [place] [address] 01/28/2025 9:00 AM EDT Office Visit [facility] [address] [place] [address] Saundra Bey, PLASTICS AND COMPOSITES INSPECTOR-ELECTRICIAN SHIP [address] [facility] [place] [address] 04/16/2025 10:30 AM EST Office Visit [facility] [address] [place] [address] Blanco Gutierrez MD [address] [place] [address] 01/12/2026 2:00 PM EDT Procedure Visit [facility] [address] [place] [address] Ankit Wilson DO [address] [place] [address] documented as of this encounter Goals Goal Patient Goal Type Associated Problems Recent Progress Patient-Stated? Author Record Cardiac Symptoms Daily Care Plan Cardiac Symptom Monitoring No Steve, Ankit, DO Schedule Cardiology Consult Care Plan Needs Cardiology Consult No Steve, Ankit, DO Record Vitals Daily Care Plan Vitals Monitoring No Steve, Ankit, DO documented as of this encounter Visit Diagnoses Not on filedocumented in this encounter Additional Health Concerns Active Problems Noted Date Diagnosed Date Cardiac Symptom Monitoring 01/07/2023 Needs Cardiology Consult 01/07/2023 Vitals Monitoring 01/07/2023 documented as of this encounter Care Teams Manager Rental Relationship Specialty Start Date End Date Blanco Gutierrez MD [address] [place] [address] PCP - General Family Medicine 06/05/23 Ana [place]ero LSW [address] [facility] [place] [address] Deputy County Counsel Family Medicine 01/18/24 01/31/24 Marian Huitron, RN [address] [place] [address] Registered Nurse Family Medicine 01/31/24 11/25/24 documented as of this encounter
--- OUTSIDE RECORDS SUMMARY | 2025-01-07 14:48 | XMS_ITS | Encounter Summary ---
Author Organization [facility] Address [address] [place] [address] Care Team Providers Care Drop Hammer Pile Driver Operator Name Role Phone Blanco Gutierrez MD Primary Care Provider [phone] Encounter Details Date Type Department Care Team (Latest Contact Info) Description 01/06/2025 Travel Social History Tobacco Use Types Packs/Day [...] Never 01/31/2024 How often do you attend zoroastrianism or catholic serv ices? Never 01/31/2024 Do you belong to any clubs o r organizations such as zoroastrianism groups, unions, fraternal or athletic groups, or [...] and heating? Not hard at all 01/31/2024 [facility] - Occupational Stress Questionnaire Answer Date [...] place to sleep or slept in a halfway (including now)? No 04/10/2023 Housing Stability Vital Sign Answer Fer e Recorded In the last 12 months, was t here a time when you were not able to pay the mortgage or rent on time? No 01/31/2024 Number of Times Moved in the Last Year Not on fi le 01/31/2024 At any time in the past 12 m [facility], were you homeless or living in a halfway (including now)? No 01/31/2024 Comments No Sex [...] PM EDT Clinical Support [facility] [address] [facility] [place] [address] 01/28/2025 9:00 AM EDT Office Visit [facility] [address] [place] [address] Saundra Bey, CUSTOMS CONSULTANT-FOREMAN OR SUPERVISOR AND OPERATOR [address] [facility] [place], [place] [address] 04/16/2025 10:30 AM EST Office Visit [facility] [address] [place] [address] Blanco Gutierrez MD [address] [place] [address] 01/12/2026 2:00 PM EDT Procedure Visit [facility] [address] [facility] [place] [address] Ankit Wilson, DO [address] [place] [address] documented as of this encounter Goals Goal [...] documented as of this encounter Care Teams Drop Hammer Pile Driver Operator Relationship Specialty Start Date End Date Blanco Gutierrez MD [address] [place] [address] PCP - General Family Medicine 06/05/23 documented as of this encounter
--- OUTSIDE RECORDS SUMMARY | 2025-01-07 14:48 | XMS_ITS | Clinical Summary ---
Author Organization [facility] Address [id number] [address] [place] [address] Care Team Providers Care Furniture Technician Name Role Phone Blanco Gutierrez MD Primary Care Provider [phone] Allergies Active Allergy Reactions Criticality Noted Date Comments Ciprofloxacin Medium 05/16/2016 Other reaction(s): Other: See Comments dizzy, loss of equilibrium Hydrocortisone High 05/16/2016 Other reaction(s): Other: See Comments steroid cream she placed in ear, caused entire face to swell, doesn't know name of cream Cephalexin 08/02/2020 Latex, Natural Rubber Rash Low 07/11/2023 Nitrofurantoin Monohyd/M-Cryst 08/02/2020 Metformin Diarrhea 12/04/2016 Neuromuscular Blockers, Steroidal Swelling 07/11/2023 Increases blood sugar Liraglutide Nausea 12/04/2016 Medications vit calc,iron,folic ( VITAMIN ORAL) Take 1 tablet by mouth in the morning. Active pen needle, diabetic (BD KATLYN 2ND GEN PEN NEEDLE) 32 gauge x 5/32 needleIndications: Type 2 diabetes mellitus during , antepartum Use as directed to give insulin 5 times daily. 200 each 7 08/11/19 21 Active insulin syringe-needle U-100 1/2 mL 31 gauge x 15/64 syringeIndications :Type 2 diabetes mellitus during , antepartum Use as directed to give insulin injections 5 times daily 200 each 6 08/18/19 21 Active fluticasone propionate (FLONASE) 50 mcg/actuation nasal spray Administer 1 spray into each nostril daily. 15.8 mL 11 10/29/19 21 Active cetirizine (ZyrTEC) 10 mg capsuleIndications :Mild intermittent asthma without complication Take 1 capsule (10 mg total) by mouth daily. 30 capsule 11 06/29/19 22 Active ondansetron ODT (ZOFRAN ODT) 4 mg disintegrating tablet Dissolve 1 tablet (4 mg total) on tongue every 8 (eight) hours as needed for nausea or vomiting. 20 tablet 09/21/19 22 Active Additional Information Patient not taking.Reported on 11/07/2024 labetaloL (NORMODYNE) 100 mg tablet Take 1 tablet (100 mg total) by mouth in the morning and 1 tablet (100 mg total) at noon and 1 tablet (100 mg total) before bedtime. 05/18/19 23 Active omeprazole (PriLOSEC) 40 mg capsule Take by mouth as needed. 06/06/19 23 Active meclizine (ANTIVERT) 25 mg tablet Take 1 tablet (25 mg total) by mouth as needed in the morning and 1 tablet (25 mg total) as needed at noon and 1 tablet (25 mg total) as needed in the evening and 1 tablet (25 mg total) as needed before bedtime. 06/06/19 23 Active hydrOXYzine (ATARAX) 25 mg tablet Take 1 tablet (25 mg total) by mouth 3 (three) times a day as needed for itching. Active lactulose (KRISTALOSE) 20 gram packet Take 1 packet (20 g total) by mouth as needed. 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 90 tablet 3 07/17/19 24 Active insulin lispro (HumaLOG U-100 Insulin) 100 unit/mL injectionIndicatio ns:Type 2 diabetes mellitus with hyperglycemia, with long-term current use of insulin ([facility]) USE UP TO 70 UNITS A DAY PER INSULIN PUMP DX:E11.9 60 mL 3 10/17/19 24 Active STRENSIQ 80 mg/0.8 mL solution Inject 2 mg/kg three times per week as directed. Rotate sites. 1855.28 24 mL 10 11/27/19 24 Active STRENSIQ 18 mg/0.45 mL solution Inject 2 mg/kg three times per week as directed. Rotate sites. 208.72 12 mL 10 11/27/19 Active Additional Information Patient not taking.Reported on 11/07/2024 EPINEPHrine (EPIPEN) 0.3 mg/0.3 mL auto-injector Inject 0.3 mL (0.3 mg total) into the appropriate muscle as needed (allergic reaction). 2 each 01/12/20 Active losartan (COZAAR) 25 mg tabletIndications: Benign hypertension Take 1 tablet (25 mg total) by mouth in the morning. 30 tablet 11 02/18/20 Active Additional Information Patient not taking.Reported on 11/07/2024 blood-glucose meter (Nortal ASTOUCH VERIO METER) miscIndications:Ty pe 2 diabetes mellitus with hyperglycemia, with long-term current use of insulin ([facility]) USE DIRECTED TO TEST 1 TIME DAILY 1 each 02/19/20 Active ONETOUCH DELICA PLUS LANCET 33 gauge miscIndications:Ty pe 2 diabetes mellitus with hyperglycemia, with long-term current use of insulin ([facility]) USE DIRECTED TO TEST 1 TIME DAILY 100 each 3 02/19/20 Active blood sugar diagnostic (ONETOUCH VERIO TEST STRIPS) stripIndications:T ype 2 diabetes mellitus with hyperglycemia, with long-term current use of insulin ([facility]) USE DIRECTED TO TEST 1 TIME DAILY 100 strip 3 02/19/20 Active amoxicillin-pot clavulanate (AUGMENTIN) 875-125 mg per tablet Take 1 tablet by mouth in the morning and 1 tablet before bedtime. 03/10/20 Active ondansetron ODT (ZOFRAN ODT) 4 mg disintegrating tablet Dissolve 1 tablet (4 mg total) on tongue every 8 (eight) hours as needed for nausea for up to 10 doses. 10 tablet 03/13/20 Active Additional Information Patient not taking.Reported on 11/07/2024 ibuprofen (MOTRIN) 600 mg tablet Take 1 tablet (600 mg total) by mouth every 6 (six) hours as needed for pain. 30 tablet 03/13/20 Active atorvastatin (LIPITOR) 20 mg tabletIndications: Mixed hyperlipidemia TAKE 1 TABLET (20 MG TOTAL) BY MOUTH IN THE MORNING 90 tablet 3 05/29/19 Active Additional Information Patient not taking.Reported on 11/07/2024 DEXCOM G7 SENSOR deviceIndications: Type 2 diabetes mellitus with hyperglycemia, with long-term current use of insulin ([facility]) CHANGE EVERY 10 DAYS 9 each 11/04/19 Active SYMBICORT 160-4.5 mcg/actuation inhalerIndications :Mild intermittent asthma without complication Inhale 2 puffs in the morning and 2 puffs before bedtime. 10.2 g 11 11/08/19 Active albuterol (PROVENTIL,VENTOLI N) 2.5 mg /3 mL (0.083 %) nebulizer solutionIndication s:Mild intermittent asthma without complication Inhale 3 mL (2.5 mg total) by nebulization every 6 (six) hours as needed for wheezing or shortness of breath. 360 mL 11/08/19 Active albuterol (PROVENTIL HFA;VENTOLIN HFA) 90 mcg/actuation inhalerIndications :Mild intermittent asthma without complication Inhale 2 puffs every 6 (six) hours as needed for wheezing or shortness of breath. 18 g 11/08/19 Active Hospital, Clinic, or Other Facility Administered Medication Ordered Dose Route Frequency Start Date End Date Status albuterol (PROVENTIL,VENTOLIN) nebulizer solution 2.5 mgIndications:Mild intermittent asthma without complication 2.5 mg nebu As needed 08/18/2024 Active Active Problems Problem Noted Date Diagnosed Date Cervical spondylosis without myelopathy 12/28/19 Itching of ear 10/18/2022 Migraine variant, intractable 08/08/2022 Gait disturbance 08/08/2022 Postural orthostatic tachycardia syndrome (POTS) 06/14/2022 Migraine 06/14/2022 Hypothyroidism 04/26/2022 Carpal tunnel syndrome, bilateral 01/18/2022 Neck pain 01/18/2022 Ear pressure, right 10/31/2021 Balance disorder 08/02/2021 Intractable migraine with aura without status mi grainosus 06/13/2021 Intracranial arachnoid cyst 06/13/2021 History of premature delivery, currently pregnan t 10/04/2020 Asthma during 10/04/2020 Chronic hypertension affecting 021 History of stillbirth in pre gnant patient in third trimester, antepartum 10/04/2020 Pre-existing type 2 diabetes mellitus during in third trimester 08/20/2020 Hearing loss of right ear 03/07/2018 Vertigo 03/07/2018 Tinnitus, bilateral 03/07/2018 Nasal congestion 03/07/2018 Diabetic autonomic neuropathy 07/11/2017 Type 2 diabetes mellitus wit h hyperglycemia, with long-term current use of insulin 11/22/2016 Hypothyroidism affecting 11/22/2016 Asthma 05/16/2016 Allergic rhinitis 05/16/2016 Overweight (BMI 25.0-29.9) 05/16/2016 Resolved Problems Problem Noted Date Diagnosed Date Resolved Date IBS (irritable bowel syndrome) 11/22/2016 10/04/2020 BUTCH (obstructive sleep apnea) 05/16/2016 10/04/2020 Periodic limb movement 05/16/201610/04 Encounters Date Type Department Care Team Description 12/26/2024 Travel 11/10/2024 Telephone [facility] [address] [place] [address] Florecita Pelletier RMA 11/07/2024 10:30 AM EDT Office Visit [facility] [address] [place] [address] Dena Fernandez, RAJ-SYMONE BUTCH (obstructive sleep apnea) (Primary Dx); Mild intermittent asthma without complication; 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[facility]); CPAP use counseling; BMI 30.0-30.9,adult; Obesity, Class I, BMI 30-34.9 11/07/2024 Telephone [facility] [address] [place] [address] Florecita Pelletier RMA 11/07/2024 Travel 11/02/2024 Refill [facility] [address] [facility] [address] [place] [address] Davina Rosales, CRIME LABORATORY ANALYST-MATCHBOOK MAKER Type 2 diabetes mellitus with hyperglycemia, with long-term current use of insulin ([facility]) 10/17/2024 7:56 AM EDT - 10/17/2024 11:59 PM EDT Hospital Encounter [facility] - Ultrasound [address] [place] [address] Generalized abdominal pain Discharge Disposition: Home 10/17/2024 Travel from Last 3 Months Immunizations Immunization Administration Dates Next Due Influenza, Injectable, quadrivalent (PF) 018 Tdap 01/17/2018 Family History Medical History Relation Name Comments Depression Brother Hypertension Brother Arthritis Father Depression Father Diabetes Father Heart disease Father Hyperlipidemia Father Hypertension Father Depression Maternal Grandfather Hypertension Maternal Grandfather Depression Maternal Grandmother Diabetes Maternal Grandmother Heart disease Maternal Grandmother Hyperlipidemia Maternal Grandmother Hypertension Maternal Grandmother Stroke Maternal Grandmother Tuberculosis Maternal Grandmother Arthritis Mother Breast cancer Mother Cancer Mother Depression Mother Diabetes Mother Hyperlipidemia Mother Hypertension Mother Hypertension Paternal Grandfather Diabetes Paternal Grandmother Heart disease Paternal Grandmother Hyperlipidemia Paternal Grandmother Hypertension Paternal Grandmother Stroke Paternal Grandmother Tuberculosis Paternal Grandmother Depression Sister Relation Name Status Comments Brother Father Alive Maternal Grandfather Maternal Grandmother Mother Alive Paternal Grandfather Paternal Grandmother Sister Social History Tobacco Use Types Packs/Day Years Used Date Smoking Tobacco: Never Smokeless Tobacco: Never Tobacco Cessation:Counseling Given: Not Answered Alcohol Use Standard Drinks/Week Comments No 0 [...] Orientation Straight 10/28/2021 12 :44 PM EDT Last Filed Vital Signs Vital Sign Reading Time Taken Comments Blood Pressure 149/84 11/07/2024 10:37 AM EDT Pulse 92 11/07/2024 10:37 AM EDT Temperature 36.8 C (98.2 F) 08/15/2024 9:46 AM EDT Respiratory Rate 17 08/15/2024 9:46 AM EDT Oxygen Saturation 98% 11/07/2024 10:37 AM EDT Inhaled Oxygen Concentration - - Weight 82.3 kg (181 lb 8 oz) 11/07/2024 10:37 AM EDT Height 165.1 cm (5' 5 ) 11/07/2024 10:37 AM EDT Body Mass Index 30.2 11/07/2024 10:37 AM EDT Plan of Treatment Upcoming Encounters Date Type Department Care Team (Late st Contact Info) Description 01/30/2025 10:45 AM EDT Office Visit [facility] A Department of [facility] [address] [facility] [address] [place] [address] Bernardino Cabrera MD [address] [facility] [place] [address] 02/11/2025 1:45 PM EDT Office Visit [facility] [address] [address] Dena Fernandez, CRIME LABORATORY ANALYST-MATCHBOOK MAKER [address], [address] [place] [address] 03/12/2025 10:00 AM EDT Office Visit [facility] [address] [address] [place] [address] Maggie Beal MD [address] [facility] [address] [place] [address] Health Maintenance Due Date Last Done Comments Diabetic Ophthalmology Exam 1989 Adult BMI Follow Up Plan 2007 Diabetic Foot Exam 2007 Depression Screening 12/28/2023 12/27/2022 COVID-19 Vaccine (3 - 2024-2 5 season) 2024 05/26/2021, 04/26/2021 Influenza Vaccine 01/12/2025 03/15/2023, , 02/27/2021, Additional history exists Adult BMI Screening 11/07/2025 11/07/2024 Tobacco Screening 11/07/2025 11/07/2024 Pap Smear 12/27/2025 12/27/2022 DTaP,Tdap and Td Vaccines (8 - Td or Tdap) 02/27/2031 02/27/2021, 01/17/2018, 07/24/1994, Additional history exists Medical Devices Not on file Procedures Procedure Name Priority Date/Time Associated Diagnosis Comments US ABDOMEN LMTD Routine 10/17/2024 8:15 AM EDT Generalized abdominal pain from Last 3 Months Results * Ultrasound abdomen limited (10/17/2024 8:15 AM EDT) Anatomical Region Laterality Modality Body, Abdomen Ultrasound 10/17/2024 8:17 AM EDT Narrative 10/17/2024 8:19 AM EDT History: Abdominal pain Exam/Technique: Multiple sonographic images [...] MD on 10/17/2024 8:19 AM Procedure Note Erickson Elder MD - 10/17/2024 History: Abdominal pain Exam/Technique: Multiple sonographic images [...] on 10/17/2024 8:19 AM Blanco Gutierrez MD [facility] ORDERABLES Final Result from Last 3 Months Insurance MEDICAID [place] MEDICARE Advance Directives * Full Code (Latest Code Status on File) Date Activated Date Inactivated Comments 01/14/2018 8:04 PM 01/17/2018 5:21 PM Care Teams Furniture Technician Relationship Specialty Start Date End Date Blanco Gutierrez MD PCP - General Family Medicine 05/31/24
--- OUTSIDE RECORDS SUMMARY | 2025-01-07 14:48 | XMS_ITS | Encounter Summary ---
Author Organization [facility] Address [address] [place] [address] Care Team Providers Care Customer Accounts Advisor Name Role Phone Blanco Gutierrez MD Primary Care Provider [phone] Marian Huitron RN Unavailable [phone] Encounter Details Date Type Department Care Team (Late st Contact Info) Description 11/10/2024 Abstract [facility] [address] [place] [address] Blanco Gutierrez MD [address] [place] [address] Social History Tobacco Use Types Packs/Day Years [...] Never 01/31/2024 How often do you attend cheondoism or tenriism serv ices? Never 01/31/2024 Do you belong to any clubs o r organizations such as cheondoism groups, unions, fraternal or athletic groups, or [...] and heating? Not hard at all 01/31/2024 [facility] - Occupational Stress [...] place to sleep or slept in a alf (including now)? No 04/10/2023 Housing Stability Vital Sign Answer Fer e Recorded In the last 12 months, was t here a time when you were not able to pay the mortgage or rent on time? No 01/31/2024 Number of Times Moved in the Last Year Not on fi le 01/31/2024 At any time in the past 12 m [facility], were you homeless or living in a alf (including now)? No 01/31/2024 Comments No Sex and Gender Information Value Date Recorded Sex Assigned at Not on file Legal Sex Female 6:36 PM EDT Gender Identity Not on file Sexual Orientation Not on file documented as of this encounter Plan of Treatment Upcoming Encounters Date Type Department Care Team (Late st Contact Info) Description 01/15/2025 1:40 PM EDT Clinical Support [facility] [address] [place] [address] [place] [address] 01/28/2025 9:00 AM EDT Office Visit [facility] [place] [facility] [address] [place] [address] Saundra Bey, RADIOLOGY TRANSPORTER-FAGOT HEATER [address] [place], [place] [id number] 04/16/2025 10:30 AM EST Office Visit [facility] [address] [place] [address] Blanco Gutierrez MD [address] [place] [address] 01/12/2026 2:00 PM EDT Procedure Visit [facility] [address] [place] [address] Ankit Wilson, [address] [facility] [place] [address] documented as of this encounter Goals Goal [...] documented as of this encounter Care Teams Customer Accounts Advisor Relationship Specialty Start Date End Date Blanco Gutierrez MD [address] [place] [address] PCP - General Family Medicine 06/05/23 Marian Huitron, PATRICIA [address] [place] [address] Registered Nurse Family Medicine 01/31/24 11/25/24 documented as of this encounter
--- OUTSIDE RECORDS SUMMARY | 2025-01-07 14:48 | XMS_ITS | Encounter Summary ---
Author Organization [facility] Address [address] [place] [address] Care Team Providers Care Pile Trimmer Name Role Phone Blanco Gutierrez MD Primary Care Provider [phone] Blanco Gutierrez MD Primary Care Provider [phone] Ana Lucero COMMUNITY LIAISON Unavailable [phone] Marian Huitron RN Unavailable [phone] Encounter Details Date Type Department Care Team (Late st Contact Info) Description 01/09/2023 Abstract [facility] [place] [address] Tiny Dunham LPN [address] [place] [address] Social History Tobacco Use Types Packs/Day Years [...] PM EDT Clinical Support [facility] [address] [place] [phone] 01/28/2025 9:00 AM EDT Office Visit [facility] [address] [place] [address] Saundra Bey, COMPUGRAPH OPERATOR-NANNY/HOUSEHOLD MANAGER [address] [facility] [address] [place], [place] [id number] 04/16/2025 10:30 AM EST Office Visit [facility] [address] [place] [address] Blanco Gutierrez MD [address] [place] [address] 01/12/2026 2:00 PM EDT Procedure Visit [facility] [place] [facility] [address] [facility] [place] [address] Ankit Wilson DO [address] [facility] [address] [place] [place], [place] [id number] documented as of this encounter Goals Goal [...] documented as of this encounter Care Teams Pile Trimmer Relationship Specialty Start Date End Date Blanco Gutierrez MD PCP - General Family Medicine 11/01/22 06/04/23 Blanco Gutierrez MD [address] [place] [address] PCP - General Family Medicine 06/05/23 Ana Lucero, EZEQUIEL [address] [place] [address] Airplane First Officer Family Medicine 01/18/24 01/31/24 Marian Huitron, RN [address] [place] [address] Registered Nurse Family Medicine 01/31/24 11/25/24 documented as of this encounter
--- OUTSIDE RECORDS SUMMARY | 2025-01-07 14:48 | XMS_ITS | Encounter Summary ---
Author Organization [facility] Address [address] [place] [address] Care Team Providers Care Barn Operator Name Role Phone Blanco Gutierrez MD Primary Care Provider [phone] Ana Lucero YARDAGE ESTIMATOR Unavailable [phone] Marian Huitron RN Unavailable [phone] Encounter Details Date Type Department Care Team (Late st Contact Info) Description 12/10/2023 Orders Only [facility] [address] [place] [address] Tiny Dunham LPN [address] [place] [id number] Social History Tobacco Use Types Packs/Day Years [...] Never 04/10/2023 How often do you attend tenriism or mandaeism serv ices? Never 04/10/2023 Do you belong to any clubs o r organizations such as tenriism groups, unions, fraternal or athletic groups, or [...] care, and heating? Not very hard 04/10/2023 [facility] - Occupational [...] place to sleep or slept in a jail (including now)? No 04/10/2023 Comments No Sex and Gender Information Value Date Recorded Sex Assigned at Not on file Legal Sex Female 6:36 PM EDT Gender Identity Not on file Sexual Orientation Not on file documented as of this encounter Plan of Treatment Upcoming Encounters Date Type Department Care Team (Late st Contact Info) Description 01/15/2025 1:40 PM EDT Clinical Support [facility] [address] [place] [address] [place] [address] 01/28/2025 9:00 AM EDT Office Visit [facility] [place] [facility] [address] [place] [address] Saundra Bey, LIVING COACH-[facility] [address] [facility] [facility] [place] [address] 04/16/2025 10:30 AM EST Office Visit [facility] [address] [place] [phone] Blanco Gutierrez MD [address] [place] [address] 01/12/2026 2:00 PM EDT Procedure Visit [facility] [address] [facility] [place] [address] Ankit Wilson DO [address] [place] [address] documented as of this encounter Goals Goal Patient Goal Type Associated Problems Recent Progress Patient-Stated? Author Record Cardiac Symptoms Daily Care Plan Cardiac Symptom Monitoring No Steve Ankit, DO Schedule Cardiology Consult Care Plan Needs Cardiology Consult No Steve, Ankit, DO Record Vitals Daily Care Plan Vitals Monitoring No SteveVernay, DO documented as of this encounter Procedures Procedure Name Priority Date/Time Associated Diagnosis Comments PAP SMEAR Routine 12/27/2022 12:00 AM EDT documented in this encounter Results * Pap Smear (12/27/2022 12:00 AM EDT) Swab Cervical swab / Unknown Steve Nurse [facility] CYTOLOGY ORDERABLES Final Result EXTERNAL LAB documented in this encounter Visit Diagnoses Not on filedocumented in this encounter Additional Health Concerns Active Problems Noted Date Diagnosed Date Cardiac Symptom Monitoring 01/07/2023 Needs Cardiology Consult 01/07/2023 Vitals Monitoring 01/07/2023 documented as of this encounter Care Teams Barn Operator Relationship Specialty Start Date End Date Blanco Gutierrez MD [address] [place] [address] PCP - General Family Medicine 06/05/23 Ana Lucero LSW [address] [facility] [place] [address] Cutter Grinder Family Medicine 01/18/24 01/31/24 Marian Huitron, RN [address] [place] [address] Registered Nurse Family Medicine 01/31/24 11/25/24 documented as of this encounter
--- OUTSIDE RECORDS SUMMARY | 2025-01-07 14:48 | XMS_ITS | Clinical Summary ---
Author Organization [facility] Address [address] [place] [address] Care Team Providers Care Applied Research Director Name Role Phone Blanco Gutierrez MD Primary Care Provider [phone] Allergies Active Allergy Reactions Criticality Noted Date Comments Cephalexin 08/02/2020 Ciprofloxacin Diarrhea,Unknown Medium 03/20/2012 dizzy, loss of equilibrium Other reaction(s): Other: See Comments Other reaction(s): Other: See Comments dizzy, loss of equilibrium dizzy, loss of equilibrium Other reaction(s): Other: See Comments dizzy, loss of equilibrium Hydrocortisone Unknown High 03/20/2012 Other reaction(s): steroid cream she placed in ear, caused entire face to swell, doesn't know name of cream Latex Rash Low 07/11/2023 Liraglutide Nausea Only 12/04/2016 Metformin Diarrhea 12/04/2016 Nitrofurantoin 08/02/2020 Other Unknown 11/29/2021 Medications labetalol (Normodyne) 200 MG tablet Take 100 mg by mouth in the morning and 100 mg in the evening and 100 mg before bedtime. Active insulin lispro (HumaLOG KWIKPEN) 100 UNIT/ML injection Inject under the skin 3 (three) times a day with meals. Active polyethylene glycol, PEG, 3350 (Glycolax) 17 GM/SCOOP powder Take 17 g by mouth in the morning. 02/18/20 23 Active levothyroxine (Synthroid, Levoxyl) 25 MCG tablet Take 1 tablet by mouth in the morning. Take before meals. 03/13/20 23 Active Continuous Blood Gluc Sensor (Dexcom G6 Sensor) misc USE DIRECTED CHANGE SENSOR EVERY 10 DAYS 03/15/20 23 Active Continuous Blood Gluc Transmit (Dexcom G6 transmitter) misc CHANGE EVERY 3 MONTHS DIRECTED 04/03/20 23 Active lactulose (Chronulac) 10 GM/15ML solutionIndication s:Chronic idiopathic constipation TAKE 30 ML BY MOUTH TWICE DAILY NEEDED 473 mL 3 10/15/19 24 Active Strensiq 18 MG/0.45ML solution injection 08/13/19 24 Active meclizine (Antivert) 25 MG tabletIndications: Acute non-recurrent pansinusitis Take 1 tablet (25 mg) by mouth 4 (four) times a day as needed for dizziness 60 tablet 2 10/15/19 24 Active triamcinolone (Kenalog) 0.5 % creamIndications:R lauren Apply topically 3 (three) times a day 60 g 2 10/30/19 24 Active ondansetron ODT (Zofran-ODT) 4 MG disintegrating tablet Take 4 mg by mouth every 8 (eight) hours if needed 03/13/20 24 Active ibuprofen 600 MG tablet Take 1 tablet by mouth every 6 (six) hours if needed 03/13/20 24 Active budesonide-formote rol (Symbicort) 160-4.5 MCG/ACT inhaler INHALE 2 PUFFS IN THE MORNING AND BEFORE BEDTIME 03/24/20 24 Active clobetasol (Temovate) 0.05 % external solutionIndication s:Dermatitis Apply topically 2 (two) times a day 50 mL 2 06/02/19 25 Active EPINEPHrine (Epipen) 0.3 MG/0.3ML injection syringeIndications :Allergic reaction, initial encounter Inject 0.3 mL (0.3 mg) as directed if needed for anaphylaxis Call 911 after use. 1 each 2 08/08/19 25 Active fluticasone (Flonase) 50 MCG/ACT nasal sprayIndications:S easonal allergic rhinitis due to pollen SPRAY 2 SPRAYS INTO EACH NOSTRIL IN THE MORNING 48 mL 1 10/01/19 25 Active cetirizine (ZyrTEC) 10 MG tabletIndications: Seasonal allergic rhinitis due to pollen TAKE 1 TABLET BY MOUTH EVERY DAY IN THE MORNING 90 tablet 1 10/09/19 25 Active famotidine (Pepcid) 40 MG tabletIndications: GERD without esophagitis TAKE 1 TABLET BY MOUTH EVERY DAY 90 tablet 1 11/08/19 25 Active glucose blood test stripIndications:T ype 2 diabetes mellitus with hyperglycemia, with long-term current use of insulin (HCC) 1 each by Other route in the morning and 1 each in the evening and 1 each before bedtime. 100 each 11 12/03/19 25 Active Blood Glucose Monitoring Suppl ([employer] Verio Flex System) deviceIndications: Type 2 diabetes mellitus with hyperglycemia, with long-term current use of insulin (HCC) 1 each in the morning and 1 each in the evening and 1 each before bedtime. 1 each 12/03/19 25 Active glucose blood test stripIndications:T ype 2 diabetes mellitus with hyperglycemia, with long-term current use of insulin (HCC) Use as instructed 100 each 12 01/02/20 25 026 Active amoxicillin-clavul anate (Augmentin) 875-125 MG tabletIndications: Acute non-recurrent pansinusitis Take 1 tablet (875 mg) by mouth in the morning and 1 tablet (875 mg) before bedtime. Do all this for 10 days. 20 tablet 12/03/19 25 025 fluconazole (Diflucan) 150 MG tabletIndications: Yeast infection Take 1 tablet (150 mg) by mouth 1 (one) time for 1 dose This is a 1 time dose, take single tablet by mouth. 1 tablet 1 01/07/20 25 025 Active Problems Problem Noted Date Diagnosed Date Attention deficit hyperactiv ity disorder (ADHD), combined type 02/22/2024 Allergic reaction to bee sting 01/23/2024 Assessment & Plan (01/23/2024 12:19 PM EDT): Recent reaction but resolved. Carry epipen. PTSD (post-traumatic stress disorder) 01/18/2024 Chronic rhinosinusitis 01/02/2024 Assessment & Plan (04/14/2024 10:34 AM EST): Symptoms unchanged and follow with ENT. Continue flonase. Assessment & Plan (03/10/2024 9:56 AM EDT): Continued symptoms and fluid behind TM. Treat with augmentin x 30 days. Continue flonase and zyrtec. Follow with new ENT. Assessment & Plan (01/02/2024 9:04 AM EDT): Worsening symptoms and ENT retired. Refer to new ENT. Continue flonase daily. Acute non-recurrent pansinusitis 09/10/2023 Assessment & Plan (12/02/2024 11:26 AM EDT): Take antibiotics BID for 10 days. Use flonase for inflammation. Use sudafed or other decongestants as needed. Use Robitussin or Robitussin-DM for cough. Can use afrin for congestion but no longer than 3 days. Can use Mucinex to bring up phlegm. Use Motrin or Tylenol as needed for fever, aches, or pains. Increase fluid intake and rest. Should improve over next 5-7 days and if no better or worse call for re- evaluation. Assessment & Plan (05/19/2024 2:24 PM EST): Take antibiotics BID for 10 days. Use prednisone for inflammation. Use sudafed or other decongestants as needed. Use Robitussin or Robitussin-DM for cough. Can use afrin for congestion but no longer than 3 days. Can use Mucinex to bring up phlegm. Use Motrin or Tylenol as needed for fever, aches, or pains. Increase fluid intake and rest. Should improve over next 5-7 days and if no better or worse call for re-evaluation. Assessment & Plan (10/15/2023 10:48 AM EDT): Take antibiotics for BID x 10 days. Use prednisone for inflammation. Use sudafed or other decongestants as needed. Use Robitussin or Robitussin-DM for cough. Can use afrin for congestion but no longer than 3 days. Can use Mucinex to bring up phlegm. Use Motrin or Tylenol as needed for fever, aches, or pains. Increase fluid intake and rest. Should improve over next 5-7 days and if no better or worse call for re-evaluation. Assessment & Plan (09/10/2023 11:53 AM EDT): Take antibiotics for 7 days. Use prednisone for inflammation. Use sudafed or other decongestants as needed. Use Robitussin or Robitussin-DM for cough. Can use afrin for congestion but no longer than 3 days. Can use Mucinex to bring up phlegm. Use Motrin or Tylenol as needed for fever, aches, or pains. Increase fluid intake and rest. Should improve over next 5-7 days and if no better or worse call for re- evaluation. Autism spectrum disorder 06/18/2023 Assessment & Plan (06/18/2023 3:23 PM EST): Recently diagnosed and continue counseling to learn coping mechanisms. Generalized abdominal pain 06/05/2023 Assessment & Plan (10/15/2024 9:52 AM EDT): Continued pain and check US RUQ. Assessment & Plan (07/04/2024 11:16 AM EST): Diffuse TTP and unclear etiology. Possibly related to constipation. Check x-ray. Resume fiber supplement and miralax. If no improvement will need labs and CT abdomen. Assessment & Plan (06/05/2023 2:11 PM EST): Recent pain and likely related to constipation. Check x-ray and labs. If normal and pain persists may need pelvic US. Chronic idiopathic constipation 06/05/2023 Assessment & Plan (06/18/2023 3:24 PM EST): Still occasional problems and use lactulose PRN. Increase fiber and try miralax daily. Assessment & Plan (06/05/2023 2:11 PM EST): Worsening constipation and use lactulose PRN. Continue miralax and colace. Use fiber supplement daily and increase dietary fiber. GERD without esophagitis 04/17/2023 Assessment & Plan (10/15/2024 9:52 AM EDT): Worsening symptoms and stop omeprazole. Try protonix and continue pepcid. Assessment & Plan (04/14/2024 10:35 AM EST): Symptoms controlled with omeprazole and continue. Assessment & Plan (01/23/2024 12:19 PM EDT): Worsening symptoms and add pepcid. Assessment & Plan (10/15/2023 10:49 AM EDT): Symptoms controlled with omeprazole and continue. Assessment & Plan (04/17/2023 10:57 AM EST): Symptoms controlled with omeprazole and continue. 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 Assessment & Plan (06/18/2023 3:25 PM EST): Increased pain and did not tolerate Strensiq. Refer to pain management for assessment. Assessment & Plan (04/17/2023 10:58 AM EST): Recent diagnosis and started treatment. Follow up with specialists. Continue PT and new order to patient. Persistent vertigo of central origin 02/20/2023 Absence of bladder continence 01/04/2023 ISAAC (generalized anxiety disorder) 01/04/2023 Assessment & Plan (10/15/2024 9:52 AM EDT): Doing well without medication and monitor. Continue counseling. Assessment & Plan (04/14/2024 10:35 AM EST): Doing well without medication and monitor. Continue counseling. Assessment & Plan (01/02/2024 9:05 AM EDT): Symptoms worse and start cymbalta. Warned will take 2-3 weeks to notice improvement in mood. Refer for counseling. Assessment & Plan (10/15/2023 10:49 AM EDT): Symptoms tolerable without medication and monitor. Assessment & Plan (04/17/2023 10:57 AM EST): Overall better but still occasional symptoms and start hydroxyzine PRN. Chronic migraine without aur a, intractable, without status migrainosus 01/04/2023 Seasonal allergic rhinitis due to pollen 023 Assessment & Plan (10/15/2024 9:53 AM EDT): Symptoms controlled with medication and continue. Assessment & Plan (10/15/2023 10:49 AM EDT): Symptoms controlled with medication and continue. Assessment & Plan (04/17/2023 10:59 AM EST): Symptoms controlled with medication and continue. Colitis 01/04/2023 Type 2 diabetes mellitus with other specified co mplication 01/04/2023 Disorder of phosphorus metabolism 01/04/2023 Edema of lower extremity 01/04/2023 Headache, variant migraine 01/04/2023 Irritable bowel syndrome without diarrhea 2022 Mixed hyperlipidemia 01/04/2023 Moderate persistent asthma without complication 01/04/2023 Fibromyalgia 01/04/2023 Non-toxic nodular goiter 01/04/2023 Obstructive sleep apnea 01/04/2023 Other cervical disc degenera tion, unspecified cervical region 01/04/2023 Palpitations 01/04/2023 Periodic limb movement 01/04/2023 Radiculopathy of cervical region 01/04/2023 Pain in right knee 01/04/2023 Second hand smoke exposure 01/04/2023 Somatoform pain disorder 01/04/2023 Tremor 01/04/2023 Benign essential hypertension 08/28/2022 Assessment & Plan (10/15/2024 9:52 AM EDT): BP controlled and monitor PRN. Assessment & Plan (04/14/2024 10:34 AM EST): BP controlled and monitor PRN. Assessment & Plan (09/10/2023 11:54 AM EDT): BP controlled and monitor PRN. Dyslipidemia 08/28/2022 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 Polycystic ovaries 08/28/2022 Postural orthostatic tachycardia syndrome (POTS) 06/14/2022 Assessment & Plan (10/15/2024 9:53 AM EDT): Symptoms unchanged and increase fluids. Follow with cardiology. If symptoms persist may need to add midodrine. Assessment & Plan (04/14/2024 10:35 AM EST): Symptoms unchanged and increase fluids. Follow with cardiology. If symptoms persist may need to add midodrine. Assessment & Plan (01/23/2024 12:20 PM EDT): Symptoms worse and increase fluids. Follow with cardiology. If symptoms persist may need to add midodrine. Carpal tunnel syndrome on both sides 01/18/2022 Neck pain 01/18/2022 Intracranial arachnoid cyst 06/13/2021 Intractable migraine with aura without status mi grainosus 06/13/2021 History of premature delivery, currently pregnan t ([facility]) 10/04/2020 History of stillbirth in pre gnant patient in third trimester, antepartum ([facility]) 10/04/2020 Inappropriate sinus tachycardia 02/16/2020 Restless legs 06/12/2018 Bilateral tinnitus 03/07/2018 Hearing loss of right ear 03/07/2018 Type 2 diabetes mellitus with polyneuropathy Assessment & Plan (01/02/2024 9:05 AM EDT): Increased symptoms and start cymbalta. Type 2 diabetes mellitus wit h hyperglycemia, with long-term current use of insulin 11/22/2016 Assessment & Plan (12/02/2024 11:27 AM EDT): Lost insulin pump and need to contact endo. Using subcutaneous insulin and monitor TID. Assessment & Plan (06/11/2024 2:10 PM EST): BS elevated and follow with endocrinology. Assessment & Plan (04/14/2024 10:35 AM EST): BS stable and follow with endocrinology. Assessment & Plan (01/23/2024 12:20 PM EDT): BS stable and follow with endocrinology. Assessment & Plan (01/02/2024 9:05 AM EDT): BS elevated and follow with endocrinology. Assessment & Plan (10/15/2023 10:50 AM EDT): BS stable and follow with endocrinology. Overweight (BMI 25.0-29.9) 05/16/2016 Abnormal involuntary movement 01/26/2014 Migraine 08/20/2013 Class 1 obesity due to exces s calories with serious comorbidity and body mass index (BMI) of 30.0 to 30.9 in adult 08/20/2013 Tachycardia 08/20/2013 Overview (01/04/2023): IST Impairment of balance 03/20/2012 Resolved Problems Problem Noted Date Diagnosed Date Resolved Date Dysuria 06/11/2024 10/15/2024 Assessment & Plan (06/11/2024 2:10 PM EST): UA not suggestive of UTI and send for culture. Glucose in urine and symptoms likely related to elevated BS. Use pyridium for symptoms. Increase water intake and cranberry juice. Use motrin or tylenol for discomfort. Carpal tunnel syndrome 01/04/202301/01 Seasonal allergic rhinitis d ue to fungal spores 01/04/2023 04/17/2023 Depressive disorder 01/04/2023 01/02/20 24 Diabetes 01/04/2023 01/02/2024 Type 1 diabetes mellitus 01/04/202306/2023 Overview (01/04/2023): 1-2 years Type 2 diabetes mellitus without complication 01/05/20 23 01/02/2024 Hypertensive disorder 01/04/20232024 Myalgia 01/04/2023 10/15/2024 Nausea and vomiting 01/04/2023 10/16/19 25 Neuralgia and neuritis, unspecified 01/04/2023 01/02/2024 Nontoxic single thyroid nodule 01/04/2023 10/15/2024 Right leg pain 01/04/2023 06/18/2023 Right lower quadrant abdominal pain 01/04/2023 06/18/2023 Syncope 01/04/2023 06/18/2023 Tachycardia, unspecified 01/04/202309/2023 Wheezing 01/04/2023 06/18/2023 Itching of ear 10/18/2022 01/02/2024 Gait disturbance 08/08/2022 10/15/2024 Migraine variant, intractable 08/08/2022 10/15/2024 Acquired hypothyroidism 04/26/202212/13 Ear pressure, right 10/31/2021 04/17/20 Asthma during 10/04/202012/13 Chronic hypertension affecti ng ([facility]) 10/04/2020 01/02/2024 Pre-existing type 2 diabetes mellitus during in third trimester ([facility]) 08/20/2020 0 01/02/2024 Vertigo 03/07/2018 06/18/2023 Nasal congestion 03/07/2018 10/15/2024 Hypothyroidism affecting 11/22/2016 01/02/2024 Asthma 05/16/2016 01/02/2024 Allergic rhinitis 05/16/2016 10/15/2023 Open wound of hand except fingers 11/13/2013 06/18/2023 Overview (01/04/2023): 882.0 OPEN WOUND HAND LEFT [facility] [id number] DOI 10/17/13ALLOW/APPEAL Dizziness and giddiness 08/20/201312/13 Fibromyalgia syndrome 03/20/20122023 Encounters Date Type Department Care Team Description 01/07/2025 2:00 PM EDT Office Visit [facility] [address] [place] [phone] Ankit Wilson, DO Well woman exam with routine gynecological exam; Vaginal discharge; Family history of breast cancer in mother 01/07/2025 Bamboo flowsheet [facility] [address] [place] [address] Ankit Wilson, DO 01/06/2025 Travel 01/06/2025 Telephone [facility] [address] [place], [place] [address] [address] Ankit Wilson, DO 01/01/2025 Refill [facility] [address] [place] [address] Blanco Gutierrez MD Type 2 diabetes mellitus with hyperglycemia, with long-term current use of insulin ([facility]) 12/02/2024 10:30 AM EDT Office Visit [facility] [address] [place] [address] Blanco Gutierrez MD Acute non-recurrent pansinusitis (Primary Dx); Type 2 diabetes mellitus with hyperglycemia, with long-term current use of insulin ([facility]) 12/02/2024 Bamboo flowsheet [facility] [address] [place] [address] Blanco Gutierrez MD 11/25/2024 Patient Outreach [facility] [address] [place] [address] Marian Huitron RN 11/10/2024 Abstract [facility] [address] [place] [address] Blanco Gutierrez MD 11/10/2024 Abstract [facility] [address] [place] [address] Blanco Gutierrez MD 11/07/2024 Refill [facility] [address] [place] [address] Blanco Gutierrez MD GERD without esophagitis 10/17/2024 Results Follow-Up [facility] [address] [place] [address] Blanco Gutierrez MD US abdomen limited 10/17/2024 External Result Encounter [facility] [address] [place] [address] Blanco Gutierrez MD 10/15/2024 9:30 AM EDT Office Visit [facility] [address] [place] [address] Blanco Gutierrez MD Benign essential hypertension (Primary Dx); Postural orthostatic tachycardia syndrome (POTS); Generalized abdominal pain; ISAAC (generalized anxiety disorder) ; GERD without esophagitis; Seasonal allergic rhinitis due to pollen 10/15/2024 Bamboo flowsheet [facility] [address] [place] [address] Blanco Gutierrez MD 10/08/2024 Refill [facility] [address] [place] [address] Blanco Gutierrez MD Seasonal allergic rhinitis due to pollen from Last 3 Months Family History Medical History Relation Name Comments Depression Brother Hypertension Brother Premature Daughter 27wks 6 days Arthritis Father Depression Father Diabetes Father Heart disease Father Hyperlipidemia Father Hypertension Father Depression Maternal Grandfather Hypertension Maternal Grandfather Depression Maternal Grandmother Heart disease Maternal Grandmother Hypertension Maternal Grandmother Stroke Maternal Grandmother Tuberculosis Maternal Grandmother Arthritis Mother Breast cancer Mother Depression Mother Diabetes Mother Hyperlipidemia Mother Hypertension Mother ALS Mother's Sister Hypertension Paternal Grandfather Arthritis Paternal Grandmother Diabetes Paternal Grandmother Heart disease Paternal Grandmother Hyperlipidemia Paternal Grandmother Hypertension Paternal Grandmother Depression Sister Relation Name Status Comments Brother Daughter Alive Father Alive Maternal Grandfather Maternal Grandmother Mother Alive Mother's Sister Other Miscarriage 01/13 n . 28 wks resulting in Paternal Grandfather Paternal Grandmother Sister Social History [...] Never 01/31/2024 How often do you attend adventism or quaker serv ices? Never 01/31/2024 Do you belong to any clubs o r organizations such as adventism groups, unions, fraternal or athletic groups, or [...] and heating? Not hard at all 01/31/2024 [facility] of Occupat ional Health - Occupational Stress [...] place to sleep or slept in a half-way (including now)? No 04/10/2023 Housing Stability Vital Sign Answer Fer e Recorded In the last 12 months, was t here a time when you were not able to pay the mortgage or rent on time? No 01/31/2024 Number of Times Moved in the Last Year Not on fi le 01/31/2024 At any time in the [facility] were you homeless or living in a half-way (including now)? No 01/31/2024 Comments No Sex and Gender Information Value Date Recorded Sex Assigned at Not on file Legal Sex Female 6:36 PM EDT Gender Identity Not on file Sexual Orientation Not on file Last Filed Vital Signs Vital Sign Reading Time Taken Comments Blood Pressure 122/82 01/07/2025 2:03 PM EDT Pulse 89 12/02/2024 10:47 AM EDT Temperature 36.6 C (97.8 F) 12/02/2024 10:47 AM EDT Respiratory Rate 22 12/02/2024 10:47 AM EDT Oxygen Saturation 97% 12/02/2024 10:47 AM EDT Inhaled Oxygen Concentration - - Weight 80.9 kg (178 lb 4 oz) 01/07/2025 2:03 PM EDT Height 165.1 cm (5' 5 ) 12/02/2024 10:47 AM EDT Body Mass Index 29.66 12/02/2024 10:47 AM EDT Plan of Treatment Upcoming Encounters Date Type Department Care Team (Late st Contact Info) Description 01/15/2025 1:40 PM EDT Clinical Support [facility] [address] [facility] [place] [address] 01/28/2025 9:00 AM EDT Office Visit [facility] [address] [place] [address] Saundra Bey APRN-RESIDENT PHYSICIAN [address] [place] [address] 04/16/2025 10:30 AM EST Office Visit [facility] [address] [place] [address] Blanco Gutierrez MD [address] [place] [address] 01/12/2026 2:00 PM EDT Procedure Visit [facility] [address] [place] [address] [place] [phone] Ankit Wilson DO [address] [place], [place] [id number] Health Maintenance Due Date Last Done Comments HPV/Cotest 2019 Diabetes: Retinopathy Screening 08/14/2024 Diabetes: Urine Protein Screening 10/18/2024 10/19/2023, 10/19/2023, 12/26/2022, Additional history exists Medicare Annual Wellness (AWV) 12/31/2024 01/01/2024 , 12/27/2022 Influenza Vaccine (#1) 2025 3, 04/05/2022, 02/27/2021, Additional history exists Diabetes: Hemoglobin A1C 03/22/2025 025, 05/22/2024, 12/19/2023, Additional history exists Cervical Cancer Screening 12/31/2026 Pap Smear 12/31/2026 01/01/2024, 12/27/2022 Goals Goal Patient Goal Type Associated Problems Recent Progress Patient-Stated? Author Record Cardiac Symptoms Daily Care Plan Cardiac Symptom Monitoring No Ankit Wilson, DO Schedule Cardiology Consult Care Plan Needs Cardiology Consult No Verna Wilsony, DO Record Vitals Daily Care Plan Vitals Monitoring No Ankit Wilson, DO Procedures Procedure Name Priority Date/Time Associated Diagnosis Comments US ABDOMEN LIMITED 10/17/2024 8: 20 AM EDT PAP SMEAR Routine 01/01/2024 12:00 AM EDT HEMOGLOBIN A1C STAT 12/19/2023 10:29 AM EDT from Last 3 Months or Most Recently Relevant to Health Maintenance Results * US abdomen limited (10/17/2024 8:20 AM EDT) Anatomical Region Laterality Modality Abdomen Ultrasound 10/17/2024 8:20 AM EDT Narrative 10/17/2024 8:19 AM EDT THIS EXAM WAS PERFORMED AT [facility] History: Abdominal pain Exam/Technique: Multiple sonographic images [...] - 10/17/2024 THIS EXAM WAS PERFORMED AT [facility] History: Abdominal pain Exam/Technique: Multiple sonographic images [...] on 10/17/2024 8:19 AM Blanco Gutierrez MD IMG US PROCEDURES Final Result * Pap Smear (01/01/2024 12:00 AM EDT) Swab Cervical swab / Unknown Ankit Steve DO LAB CYTOLOGY ORDERABLES Final Re sult EXTERNAL LAB * (ABNORMAL) Hemoglobin A1c (12/19/2023 10:29 AM EDT) HEMOGLOBIN A1C 7.0(H) 4.4 - 5.6 % [facility] Comment: NOTE ADA Guidelines Result HgbA1c Normal : less than 5.7 % Prediabetes : 5.7 % to 6.4 % Diabetes : > 6.4 % Use with caution in patients with abnormal hemoglobin variants as the half-life of red blood cells and in vivo glycation rates are affected. AVERAGE GLUCOSE 154 mg/dL [facility] Comment:PERFORMED AT [facility] [address],[place] [address] 12/19/2023 10:2 9 AM EDT 12/19/2023 10:34 AM EDT Ankit Steve DO LAB BLOOD ORDERABLES Final Resul t [facility] from Last 3 Months or Most Recently Relevant to Health Maintenance Additional Health Concerns Active Problems Noted Date Diagnosed Date Cardiac Symptom Monitoring 01/07/2023 Needs Cardiology Consult 01/07/2023 Vitals Monitoring 01/07/2023 Insurance [employer] MED[employer] MEDICAID [place] Care Teams Applied Research Director Relationship Specialty Start Date End Date Blanco Gutierrez MD [address] [place] [address] PCP - General Family Medicine 06/05/23
--- OUTSIDE RECORDS SUMMARY | 2025-01-07 14:48 | XMS_ITS | Encounter Summary ---
Author Organization [facility] Address [address] [place] [address] Care Team Providers Care Railroad Car Repairman Name Role Phone Blanco Gutierrez MD Primary Care Provider [phone] Marian Huitron RN Unavailable [phone] Encounter Details Date Type Department Care Team (Late st Contact Info) Description 11/10/2024 Abstract [facility] [address] [place] [address] Blanco Gutiererz MD [address] [place] [address] Social History Tobacco Use Types Packs/Day Years [...] Never 01/31/2024 How often do you attend latter day or taoist serv ices? Never 01/31/2024 Do you belong to any clubs o r organizations such as latter day groups, unions, fraternal or athletic groups, or [...] and heating? Not hard at all 01/31/2024 [facility] of Occupat ional Health - Occupational Stress [...] place to sleep or slept in a senior living (including now)? No 04/10/2023 Housing Stability Vital Sign Answer Fer e Recorded In the last 12 months, was t here a time when you were not able to pay the mortgage or rent on time? No 01/31/2024 Number of Times Moved in the Last Year Not on fi le 01/31/2024 At any time in the past 12 m [facility], were you homeless or living in a senior living (including now)? No 01/31/2024 Comments No Sex and Gender Information Value Date Recorded Sex Assigned at Not on file Legal Sex Female 6:36 PM EDT Gender Identity Not on file Sexual Orientation Not on file documented as of this encounter Plan of Treatment Upcoming Encounters Date Type Department Care Team (Late st Contact Info) Description 01/15/2025 1:40 PM EDT Clinical Support [facility] [address] [place] [address] [place] [address] 01/28/2025 9:00 AM EDT Office Visit [facility] [address] [place] [address] Saundra Bey, GUIDE DOMESTIC TOUR-COUNTY ASSESSOR [address] [place], [place] [id number] 04/16/2025 10:30 AM EST Office Visit [facility] [address] [place] [address] Balnco Gutierrez MD [address] [place] [address] 01/12/2026 2:00 PM EDT Procedure Visit [facility] [address] [place] [address] Ankit Wilson, [address] [facility] [place] [address] documented as of this encounter Goals Goal [...] documented as of this encounter Care Teams Railroad Car Repairman Relationship Specialty Start Date End Date Blanco Gutierrez MD [address] [place] [address] PCP - General Family Medicine 06/05/23 Marian Huitron, PATRICIA [address] [place] [address] Registered Nurse Family Medicine 01/31/24 11/25/24 documented as of this encounter
--- OUTSIDE RECORDS SUMMARY | 2025-01-07 14:48 | XMS_ITS | Encounter Summary ---
Author Organization [facility] Address [id number] [address] [place] [address] Care Team Providers Care Envelope Fold Operator Name Role Phone Blanco Gutierrez MD Primary Care Provider [phone] Encounter Details Date Type Department Care Team (Late st Contact Info) Description 07/19/2023 [facility]phone [facility] [address] [facility] [address] [place] [address] Luna Phillip LPN Social History Tobacco Use [...] Telephone Encounter - Luna Phillip LPN - 07/19/2023 11:59 AM EST PER ROSALBA GRIGGS PT STATES HER STRENSIQ DOSE WAS TO BE TAPERED? * Telephone Encounter - Bernardino Cabrera MD - 07/19/2023 11:59 AM EST She will only take it once a week for the next few weeks to see if that helps her symptoms. She will keep us posted. She was having trouble controlling her blood sugars and she was retaining lot of fluid so she is only going to take it once a week for the next few weeks and see how she does. documented in this encounter Plan of Treatment Upcoming Encounters Date Type Department Care Team (Late st Contact Info) Description 01/30/2025 10:45 AM EDT Office Visit [facility] A Department of [facility] [address] [facility] [address] [place] [address] Bernardino Cabrera MD [address] [facility] [place] [address] 02/11/2025 1:45 PM EDT Office Visit [facility] [address] [facility] [address] [address] Dena Fernandez, LOGISTICS SUPPLY OFFICER-FOLLOW UP REP [address] [facility], [address] [place] [address] 03/12/2025 10:00 AM EDT Office Visit [facility] [address] [facility] [address] [place] [address] Maggie Beal MD [address] [facility] [address] [place] [address] documented as of this encounter Visit Diagnoses Not on filedocumented in this encounter Additional Health Concerns Assessment Noted Time PHQ-9 Depression Total Score: 0 12/28/19 23 2:41 PM EDT documented as of this encounter Care Teams Envelope Fold Operator Relationship Specialty Start Date End Date Blanco Gutierrez MD PCP - General Family Medicine 05/31/24 documented as of this encounter
--- OUTSIDE RECORDS SUMMARY | 2025-01-07 14:48 | XMS_ITS | Encounter Summary ---
Author Organization [employer] [facility] Address [id number] [address] [place] [address] Care Team Providers Care Panel Edge Painter Name Role Phone Blanco Gutierrez MD Primary Care Provider [phone] Encounter Details Date Type Department Care Team (Late st Contact Info) Description 09/19/2023 [facility]phone [facility] [address] [facility] [address] [place] [address] Luna Phillip LPN Social History Tobacco Use [...] Telephone Encounter - Luna Phillip LPN - 09/19/2023 2:19 PM EDT Marissa is unable to reach her re elsa. I also tried and cannot reach her. The emergency contacts phone is disconnected. * Telephone Encounter - Bernardino Cabrera MD - 09/19/2023 2:19 PM EDT Kindly send a letter documented in this encounter Plan of Treatment Upcoming Encounters Date Type Department Care Team (Late st Contact Info) Description 01/30/2025 10:45 AM EDT Office Visit [facility], A Department of [facility] [address] [facility] [address] [place] [address] Bernardino Cabrera MD [address] [facility] [place] [address] 02/11/2025 1:45 PM EDT Office Visit [facility] [address] [facility] [place] [address] Dena Fernandez, REGENERATION OPERATOR-FIELD MARKETING DIRECTOR [address] [facility], [address] [place] [address] 03/12/2025 10:00 AM EDT Office Visit [facility] [address] [facility] [address] [place] [address] Maggie Beal MD [address] [facility] [address] [place] [address] documented as of this encounter Visit Diagnoses Not on filedocumented in this encounter Additional Health Concerns Assessment Noted Time PHQ-9 Depression Total Score: 0 12/28/19 23 2:41 PM EDT documented as of this encounter Care Teams Panel Edge Painter Relationship Specialty Start Date End Date Blanco Gutierrez MD PCP - General Family Medicine 05/31/24 documented as of this encounter
--- OUTSIDE RECORDS SUMMARY | 2025-01-07 14:48 | XMS_ITS | Encounter Summary ---
Author Organization [facility] Address [address] [place] [address] Care Team Providers Care Detention Attendant Name Role Phone Blanco Gutierrez MD Primary Care Provider [phone] Ana Lucero AVIATION SAFETY INSPECTOR Unavailable [phone] Marian Huitron RN Unavailable [phone] Encounter Details Date Type Department Care Team (Late st Contact Info) Description 06/11/2023 Orders Only [facility] [address] [place] [address] Blanco Gutierrez MD [address] [place] [address] Social History Tobacco Use Types Packs/Day Years [...] Never 04/10/2023 How often do you attend taoist or gnosticism serv ices? Never 04/10/2023 Do you belong to any clubs o r organizations such as taoist groups, unions, fraternal or athletic groups, or [...] care, and heating? Not very hard 04/10/2023 [facility] of Occupat ional Health - Occupational Stress [...] place to sleep or slept in a snf (including now)? No 04/10/2023 Comments No Sex and Gender Information Value Date Recorded Sex Assigned at Not on file Legal Sex Female 6:36 PM EDT Gender Identity Not on file Sexual Orientation Not on file documented as of this encounter Plan of Treatment Upcoming Encounters Date Type Department Care Team (Late st Contact Info) Description 01/15/2025 1:40 PM EDT Clinical Support [facility] [address] [place] [address] [place] [address] 01/28/2025 9:00 AM EDT Office Visit [facility] [address] [place] [address] Saundra Bey, ADDING MACHINE SERVICER-[facility] [address] [facility] [place] [address] 04/16/2025 10:30 AM EST Office Visit [facility] [address] [place] [address] Blanco Gutierrez MD [address] [place] [address] 01/12/2026 2:00 PM EDT Procedure Visit [facility] [address] [place] [address] Ankit Wilson DO [address] [place] [address] documented as of this encounter Goals Goal Patient Goal Type Associated Problems Recent Progress Patient-Stated? Author Record Cardiac Symptoms Daily Care Plan Cardiac Symptom Monitoring No Steve, Ankit, DO Schedule Cardiology Consult Care Plan Needs Cardiology Consult No Steve, Ankit, DO Record Vitals Daily Care Plan Vitals Monitoring No SteveVernay, DO documented as of this encounter Visit Diagnoses Not on filedocumented in this encounter Additional Health Concerns Active Problems Noted Date Diagnosed Date Cardiac Symptom Monitoring 01/07/2023 Needs Cardiology Consult 01/07/2023 Vitals Monitoring 01/07/2023 documented as of this encounter Care Teams Detention Attendant Relationship Specialty Start Date End Date Blanco Gutierrez MD [address] [place] [address] PCP - General Family Medicine 06/05/23 Ana Lucero LSW [address] [facility] [place] [address] Folding Rules Printing Machine Operator Family Medicine 01/18/24 01/31/24 Marian Huitron, RN [address] [place] [address] Registered Nurse Family Medicine 01/31/24 11/25/24 documented as of this encounter
--- OUTSIDE RECORDS SUMMARY | 2025-01-07 14:49 | XMS_ITS | Encounter Summary ---
Author Organization [facility] Address [address] [place] [address] Care Team Providers Care Instructor Watch Assembly Name Role Phone Blanco Gutierrez MD Primary Care Provider [phone] Marian Huitron RN Unavailable [phone] Encounter Details Date Type Department Care Team (Late st Contact Info) Description 08/14/2024 External Result Encounter [facility] [address] [place] [address] Blanco Gutierrez MD [address] [place] [address] Social History Tobacco Use Types Packs/Day Years [...] Never 01/31/2024 How often do you attend adventist or jehovah's witness serv ices? Never 01/31/2024 Do you belong to any clubs o r organizations such as adventist groups, unions, fraternal or athletic groups, or [...] and heating? Not hard at all 01/31/2024 [facility] [place] of Occupat ional Health - Occupational Stress [...] any time in the past 12 m [facility], were you homeless or [...] 1:40 PM EDT Clinical Support [facility]ICA HERZOG [address] [place] [address] [place] [address] 01/28/2025 9:00 AM EDT Office Visit [facility] [address] [place] [address] Saundra Bey, RAJ-METALSMITH [address] [place], [place] [phone] 04/16/2025 10:30 AM EST Office Visit [facility] [address] [place] [address] Blanco Gutierrez MD [address] [place] [address] 01/12/2026 2:00 PM EDT Procedure Visit [facility] [address] [facility] [place] [address] Ankit Wilson DO [address] [facility] [address] [place], [place] [address] documented as of this encounter Goals Goal [...] Procedure Name Priority Date/Time Associated Diagnosis Comments CT ABDOMEN PELVIS W IV CONTRAST 08/14/2024 3:36 AM EDT documented in this encounter Results * CT abdomen pelvis w IV contrast (08/14/2024 3:36 AM EDT) Anatomical Region Laterality Modality Body, Pelvis, Abdomen Computed T omography 08/14/2024 3:36 AM EDT Narrative 08/14/2024 3:35 AM EDT THIS EXAM WAS PERFORMED AT [facility] CLINICAL INFORMATION: Chronic idiopathic constipation; Generalized abdominal pain. COMPARISON: 08/29/2021 TECHNIQUE: CT of the abdomen and pelvis with intravenous contrast. FINDINGS: LOWER CHEST: No pericardial or pleural effusion. LIVER AND BILIARY: Steatotic liver. No biliary dilatation. PANCREAS: Within normal limits. SPLEEN: Within normal limits. ADRENALS: Within normal limits. KIDNEYS, URETERS, AND BLADDER: Symmetric enhancement without hydronephrosis. Normal bladder. GI TRACT AND PERITONEUM: No bowel obstruction, free fluid, or free air. Normal appendix. VASCULATURE: Normal caliber aorta. Patent portal vein. LYMPH NODES: Within normal limits. REPRODUCTIVE ORGANS: No acute abnormality. MUSCULOSKELETAL: No acute abnormality. IMPRESSION: 1. No acute abnormality. 2. Steatotic liver. All CT scans at this facility use dose modulation, iterative reconstruction, and/or weight based dosing when appropriate to reduce radiation dose to as low as reasonably achievable. Finalized by Salvatore Aguirre MD on 08/14/2024 3:35 AM Procedure Note Radiology, Radiologist, - 08/14/2024 THIS EXAM WAS PERFORMED AT [facility] CLINICAL INFORMATION: Chronic idiopathic constipation; Generalized abdominal pain. COMPARISON: 08/29/2021 TECHNIQUE: CT of the abdomen and pelvis with intravenous contrast. FINDINGS: LOWER CHEST: No pericardial or pleural effusion. LIVER AND BILIARY: Steatotic liver. No biliary dilatation. PANCREAS: Within normal limits. SPLEEN: Within normal limits. ADRENALS: Within normal limits. KIDNEYS, URETERS, AND BLADDER: Symmetric enhancement withouthydronephrosis. Normal bladder. GI TRACT AND PERITONEUM: No bowel obstruction, free fluid, or free air.Normal appendix. VASCULATURE: Normal caliber aorta. Patent portal vein. LYMPH NODES: Within normal limits. REPRODUCTIVE ORGANS: No acute abnormality. MUSCULOSKELETAL: No acute abnormality. IMPRESSION: 1. No acute abnormality. 2. Steatotic liver. All CT scans at this facility use dose modulation, iterativereconstruction, and/or weight based dosing when appropriate to reduceradiation dose to as low as reasonably achievable. Finalized by Salvatore Aguirre MD on 08/14/2024 3:35 AM Blanco Gutierrez MD IMG CT PROCEDURES Final Result documented in this encounter Visit Diagnoses Not on filedocumented in this encounter Additional Health Concerns Active Problems Noted Date Diagnosed Date Cardiac Symptom Monitoring 01/07/2023 Needs Cardiology Consult 01/07/2023 Vitals Monitoring 01/07/2023 documented as of this encounter Care Teams Instructor Watch Assembly Relationship Specialty Start Date End Date Blanco Gutierrez MD [address] [place] [address] PCP - General Family Medicine 06/05/23 Marian Huitron, RN [address] [place] [address] Registered Nurse Family Medicine 01/31/24 11/25/24 documented as of this encounter
--- OUTSIDE RECORDS SUMMARY | 2025-01-07 14:49 | XMS_ITS | Patient Health Record ---
Author Organization [facility] Address [address] [place], [place] [address] Care Team Providers Care Congressional District Aide Name Role Phone Saundra Sapp Unavailable [phone] Allergies No Known Allergies Reason For Referral No Information Medications Medication SIG (Take, Route, Frequency, Duration) Notes Start Date End Date Status Labetalol HCl 100 MG 1 tablet Orally Twi ce a day HBP Active Levothyroxine Sodium 25 MCG 1 tablet in the morning on an empty stomach Orally Once a day Active Dexcom G7 Sensor - ; Duration: 90 Days Active Denta 5000 Plus 1.1 % Vanderbilt with toothpa romel morning and night. Do not rinse after use. Dental Two times a day; Duration: 30 days 08/08/2024 Active HumaLOG Active Social History Tobacco Use: Social History Observation Description Date Details (start date - stop date) Never Smoker NA - NA Sex Assigned At : Social History Observation Description Sex Assigned At Female Tobacco Control (Standard) Question Answer Notes Tobacco use: Nonsmoker Additional Findings: Tobacco non-user Current no nsmoker Section Notes: Nutrition counseling focusin g on a low sodium and low sugar diet discussed with the patient, as well as appropriate weekly exercise and increased activity as tolerated to work towards a more optimal body mass index for improved overall health. Nutrition counseling focusin g on a low sodium and low sugar diet discussed with the patient, as well as appropriate weekly exercise and increased activity as tolerated to work towards a more optimal body mass index for improved overall health. Problems Problem Type SNOMED Code ICD Code Onset Dates Problem Status W/U Status Risk Notes Problem Body mass index 30+ - obesity (789582011) BMI 30.0-30.9,a dult (Z68.30) Active confirmed Vital Signs Heart Rate 77 /min 08/27/2024 Height-cm 165.1 cm 08/27/2024 Blood pressure diastolic 80 mm Hg 08/27/2024 Weight-kg 84.37 kg 08/27/2024 Height 65 in 08/27/2024 Blood pressure systolic 132 mm Hg 08/27/2024 Weight 186 lbs 08/27/2024 BMI 30.95 kg/m2 08/27/2024 Encounters Encounter Location Date Provider Diagnosis [facility] [address] [place] [id number] 08/08/2024 Saundra Sapp BMI 30.0-30.9,adul t Z68.30 ; Encounter for screening for dental disorders Z13.84 ; Dental caries into dentine K02.62 ; Caries of dentin K02.62 ; Necrosis of pulp K04.1 and Encounter for dental examination and cleaning with abnormal findings Z01.21 [facility] Main [address] [place] [id number] 08/27/2024 Saundra Sapp Encounter for dent al examination and cleaning with abnormal findings Z01.21 ; Dietary counseling Z71.3 and Exercise counseling Z71.82 Assessments Encounter Date Diagnosis (ICD Code) Assessment Notes Treatment Notes Treatment Clinical Notes Section Notes 08/08/2024 BMI 30.0-30.9,adult (ICD-10 - Z68.30) 08/27/2024 Encounter for dental examination and cleaning with abnormal findings (ICD-10 - Z01.21) 08/08/2024 Encounter for screening for dental disorders (ICD-10 - Z13.84) 08/27/2024 Dietary counseling (ICD-10 - Z71.3) 08/27/2024 Exercise counseling (ICD-10 - Z71.82) 08/08/2024 Dental caries into dentine (ICD-10 - K02.62) 08/08/2024 Caries of dentin (ICD-10 - K02.62) 08/08/2024 Necrosis of pulp (ICD-10 - K04.1) 08/08/2024 Encounter for dental examination and cleaning with abnormal findings (ICD-10 - Z01.21) Plan Of Treatment Next Appt Details Provider Name:Saundra Sapp , 04/02/2025 10:45:00 AM, [address] [place] [address], [id number], Insurance Providers Payer Name Payer Address Payer Phone Subscriber Number Group Number Insured Name Patient Relationship to Insured Coverage Start Date Coverage End Date [employer] [facility] [address] [address] [place] [address] [id number] August Self - patient is the insured 5 Medical (General) History Medical History History ICD Code Diabetes Type II Hypothyroid Hypophosphatasia
--- OUTSIDE RECORDS SUMMARY | 2025-01-07 14:49 | XMS_ITS | Encounter Summary ---
Author Organization [facility] Address [facility] [id number] [address] [place] [address] Care Team Providers Care Project Executive Name Role Phone Blanco Gutierrez MD Primary Care Provider [phone] Reason for Visit * Reason Comments Med Refill Encounter Details Date Type Department Care Team (Late st Contact Info) Description 10/13/2021 Refill [facility] [address] [place] [address] Laura Ruffin MD [address] [place] [address] [address] [place] [address] Social History Tobacco Use Types Packs/Day Years [...] Exposure Response Date Recorded In the last 10 days, have yo u been in contact with someone who was confirmed or suspected to have Coronavirus/COVID-19? No / Unsure 09/26/2021 2:24 PM EDT documented as of this encounter Miscellaneous Notes * Telephone Encounter - Dorene Bailey RN - 10/13/2021 10:30 AM EDT Medication: topamax Last ordered: 09/[facility]/20[facility]- refill too soon. Last office visit: Next office visit: Dose verified: Prescription(s) pending for approval. * Telephone Encounter - Laura Ruffin MD - 10/13/2021 10:30 AM EDT Too soon to refill. documented in this encounter Plan of Treatment Upcoming Encounters Date Type Department Care Team (Late st Contact Info) Description 01/30/2025 10:45 AM EDT Office Visit [facility]ocrinology, A Department of [facility] [address] [facility] [address] [place] [address] Bernardino Cabrera MD [address] [facility] [place] [address] 02/11/2025 1:45 PM EDT Office Visit [facility] [address] [place] [address] Dena Fernandez, TERRAZZO FINISHER-COLOR CARD MAKER [address] [facility], [address] [place] [address] 03/12/2025 10:00 AM EDT Office Visit [facility] [address] [facility] [address] [place] [address] Maggie Beal MD [address] [facility] [address] [place] [address] documented as of this encounter Visit Diagnoses Not on filedocumented in this encounter Care Teams Project Executive Relationship Specialty Start Date End Date Blanco Gutierrez MD PCP - General Family Medicine 05/31/24 documented as of this encounter
--- OUTSIDE RECORDS SUMMARY | 2025-01-07 14:49 | XMS_ITS | Encounter Summary ---
Author Organization [facility] Address [id number] [address] [place] [address] Care Team Providers Care Hand Trucker Name Role Phone Blanco Gutierrez MD Primary Care Provider [phone] Reason for Visit * Reason Comments Med Refill Encounter Details Date Type Department Care Team (Late st Contact Info) Description 11/30/2021 Refill [facility] [address] [facility] [address] [place] [address] Gianluca Miranda MD [address] [facility] Physician retired 05/13/2023 [place] [address] Vertigo Social History Tobacco Use Types Packs/Day Years [...] have Coronavirus / COVID-19? No / Unsure 10/31/2021 9:48 AM EDT documented as of this encounter Plan of Treatment Upcoming Encounters Date Type Department Care Team (Late st Contact Info) Description 01/30/2025 10:45 AM EDT Office Visit [facility] A Department of [facility] [address] [facility] [address] [place] [address] Bernardino Cabrera MD [address] [facility] [place] [address] 02/11/2025 1:45 PM EDT Office Visit [facility] [address] [place] [phone] Dena Fernandez, EXERCISE TEACHER-AUTO PAINTER HELPER [address] [facility], [address] [place] [address] 03/12/2025 10:00 AM EDT Office Visit [facility] [address] [facility] [facility] [address] [place] [address] Maggie Beal MD [address] [facility] [address] [place] [address] documented as of this encounter Visit Diagnoses Diagnosis Vertigo Dizziness and giddiness documented in this encounter Care Teams Hand Trucker Relationship Specialty Start Date End Date Blanco Gutierrez MD PCP - General Family Medicine 05/31/24 documented as of this encounter
--- OUTSIDE RECORDS SUMMARY | 2025-01-07 14:49 | XMS_ITS | Encounter Summary ---
Author Organization [facility] Address [address] [place] [address] Care Team Providers Care Plastics Fabricator Name Role Phone Blanco Gutierrez MD Primary Care Provider [phone] Reason for Visit * Reason Onset Date Comments Med Refill 01/01/2025 Encounter Details Date Type Department Care Team (Late st Contact Info) Description 01/01/2025 Refill [facility] [address] [place] [address] Blanco Gutierrez MD [address] [place] [address] Type 2 diabetes mellitus with hyperglycemia, with long-term current use of insulin (HCC) Social History Tobacco Use Types Packs/Day Years [...] Never 01/31/2024 How often do you attend samaritan or caodaism serv ices? Never 01/31/2024 Do you belong to any clubs o r organizations such as samaritan groups, unions, fraternal or athletic groups, or [...] and heating? Not hard at all 01/31/2024 [facility] of Occupat ional Health - Occupational [...] place to sleep or slept in a usp (including now)? No 04/10/2023 Housing Stability Vital Sign Answer Fer e Recorded In the last 12 months, was t here a time when you were not able to pay the mortgage or rent on time? No 01/31/2024 Number of Times Moved in the Last Year Not on fi le 01/31/2024 At any time in the past 12 m [facility], were you homeless or living in a usp (including now)? No 01/31/2024 Comments No Sex and Gender Information Value Date Recorded Sex Assigned at Not on file Legal Sex Female 6:36 PM EDT Gender Identity Not on file Sexual Orientation Not on file documented as of this encounter Plan of Treatment Upcoming Encounters Date Type Department Care Team (Late st Contact Info) Description 01/15/2025 1:40 PM EDT Clinical Support [facility] [address] [place] [address] [place] [address] 01/28/2025 9:00 AM EDT Office Visit [facility] [address] [place] [address] Saundra Bey, CERTIFIED RETINAL ANGIOGRAPHER-METAL BONDING ASSEMBLER [address] [facility] [address] [place], [place] [id number] 04/16/2025 10:30 AM EST Office Visit [facility] [address] [place] [address] Blanco Gutierrez MD [address] [place] [address] 01/12/2026 2:00 PM EDT Procedure Visit [facility] [address] [place] [phone] Ankit Wilson DO [address] [facility] [place] [address] documented as of this encounter Goals Goal Patient Goal Type Associated Problems Recent Progress Patient-Stated? Author Record Cardiac Symptoms Daily Care Plan Cardiac Symptom Monitoring No Ankit Wilson, Schedule Cardiology Consult Care Plan Needs Cardiology Consult No Ankit Wilson, DO Record Vitals Daily Care Plan Vitals Monitoring No Ankit Wilson, DO documented as of this encounter Visit Diagnoses Diagnosis Type 2 diabetes mellitus with hyperglycemia, with long-term current use of insulin (HCC) documented in this encounter Additional Health Concerns Active Problems Noted Date Diagnosed Date Cardiac Symptom Monitoring 01/07/2023 Needs Cardiology Consult 01/07/2023 Vitals Monitoring 01/07/2023 documented as of this encounter Care Teams Plastics Fabricator Relationship Specialty Start Date End Date Blanco Gutierrez MD [address] [place] [address] PCP - General Family Medicine 06/05/23 documented as of this encounter
--- OUTSIDE RECORDS SUMMARY | 2025-01-07 14:49 | XMS_ITS | Encounter Summary ---
Author Organization [facility] Address [facility] [id number] [address] [place] [address] Care Team Providers Care Ludlow Machine Operator Name Role Phone Blanco Gutierrez MD Primary Care Provider [phone] Reason for Visit * Reason Comments Med Refill Encounter Details Date Type Department Care Team (Late st Contact Info) Description 01/23/2022 Refill Maternal- Medicine at [facility] [address] [place] [phone] Anita Sanchez, REGISTERED NURSE MATERNAL CHILD-SHANK PINNER [address] [place] [address] Social History Tobacco Use Types Packs/Day Years [...] or suspected to have Coronavirus / COVID-19? Unable to assess 01/25/2022 9:39 AM EDT documented as of this encounter Miscellaneous Notes * Telephone Encounter - JOURDAN Escobar - 01/23/2022 12:15 AM EDT Patient is no longer documented in this encounter Plan of Treatment Upcoming Encounters Date Type Department Care Team (Late st Contact Info) Description 01/30/2025 10:45 AM EDT Office Visit [facility] A Department of [facility] [address] [place] [phone] Bernardino Cabrera MD [address] [facility], [address] [place] [address] 02/11/2025 1:45 PM EDT Office Visit [facility] [address] [place] [address] Dena Fernandez APRN-CNP [address] [facility], [address] [place], [place] [phone] 03/12/2025 10:00 AM EDT Office Visit [facility] [address] [facility] [address] [place] [address] Maggie Beal MD [address] [facility] [address] [place], [place] [phone] documented as of this encounter Visit Diagnoses Not on filedocumented in this encounter Care Teams Ludlow Machine Operator Relationship Specialty Start Date End Date Blanco Gutierrez MD PCP - General Family Medicine 05/31/24 documented as of this encounter
--- OUTSIDE RECORDS SUMMARY | 2025-01-07 14:49 | XMS_ITS | Encounter Summary ---
Author Organization [facility] Address [address] [place] [address] Care Team Providers Care It Support Specialist Name Role Phone Blanco Gutierrez MD Primary Care Provider [phone] Encounter Details Date Type Department Care Team (Late st Contact Info) Description 01/06/2025 Telephone [facility] [address] [employer] [place] [phone] Ankit Wilson DO [address] [place], [facility] Social History Tobacco Use Types Packs/Day Years [...] Never 01/31/2024 How often do you attend spiritism or oriental orthodox serv ices? Never 01/31/2024 Do you belong to any clubs o r organizations such as spiritism groups, unions, fraternal or athletic groups, or [...] heating? Not hard at all 01/31/2024 [facility] of Occupat ional Health - Occupational Stress [...] place to sleep or slept in a custodial (including now)? No 04/10/2023 Housing Stability Vital Sign Answer Fer e Recorded In the last 12 months, was t here a time when you were not able to pay the mortgage or rent on time? No 01/31/2024 Number of Times Moved in the Last Year Not on fi le 01/31/2024 At any time in the past 12 m [facility], were you homeless or living in a custodial (including now)? No 01/31/2024 Comments No Sex and Gender Information Value Date Recorded Sex Assigned at Not on file Legal Sex Female 6:36 PM EDT Gender Identity Not on file Sexual Orientation Not on file documented as of this encounter Miscellaneous Notes * Telephone Encounter - Tiny Dunham LPN - 01/06/2025 1:32 PM EDT Patient called the office and she states that she is due for her annual tomorrow and she has been on antibiotics and wondering if he can treat this at her yearly appointment tomorrow. Patient call was returned and she was advised that we can send a script in for her and she can discuss with him tomorrow. PVU and script sent. documented in this encounter Plan of Treatment Upcoming Encounters Date Type Department Care Team (Late st Contact Info) Description 01/15/2025 1:40 PM EDT Clinical Support [facility] [address] [place] [address] [place] [address] 01/28/2025 9:00 AM EDT Office Visit [facility] [address] [place] [address] Saundra Bey APRN-IT OPERATIONS ANALYST [address] [facility] [place] [address] 04/16/2025 10:30 AM EST Office Visit [facility] [address] [place] [address] Blanco Gutierrez MD [address] [place] [address] 01/12/2026 2:00 PM EDT Procedure Visit [facility] [place] [facility] [address] [place] [address] Ankit Wilson DO [address] [facility] [address] [place], [place] [phone] documented as of this encounter Goals Goal Patient Goal Type Associated Problems Recent Progress Patient-Stated? Author Record Cardiac Symptoms Daily Care Plan Cardiac Symptom Monitoring No Ankit Wilson DO Schedule Cardiology Consult Care Plan Needs Cardiology Consult No Ankit Wilson, Record Vitals Daily Care Plan Vitals Monitoring No Ankit Wilson DO documented as of this encounter Visit Diagnoses Diagnosis Yeast infection documented in this encounter Additional Health Concerns Active Problems Noted Date Diagnosed Date Cardiac Symptom Monitoring 01/07/2023 Needs Cardiology Consult 01/07/2023 Vitals Monitoring 01/07/2023 documented as of this encounter Care Teams It Support Specialist Relationship Specialty Start Date End Date Blanco Gutierrez MD [address] [place] [address] PCP - General Family Medicine 06/05/23 documented as of this encounter
--- OUTSIDE RECORDS SUMMARY | 2025-01-07 14:49 | XMS_ITS | Encounter Summary ---
Author Organization [facility] Address [address] [place] [address] Care Team Providers Care Pollution Control Chemist Name Role Phone Blanco Gutierrez MD Primary Care Provider [phone] Marian Huitron RN Unavailable [phone] Encounter Details Date Type Department Care Team (Late st Contact Info) Description 10/02/2024 [facility] [address] [place] [address] Blanco Gutierrez MD [address] [place] [address] Amylase, Lipase, Basic metabolic panel, Additional followed-up results: 4 Social History Tobacco Use Types Packs/Day Years [...] Never 01/31/2024 How often do you attend pentecostalism or mormon serv ices? Never 01/31/2024 Do you belong to any clubs o r organizations such as pentecostalism groups, unions, fraternal or athletic groups, or [...] and heating? Not hard at all 01/31/2024 [facility] of Occupat ional Health - [...] time in the past 12 m [facility], were you homeless or living in a [...] 1:40 PM EDT Clinical Support [facility] [address] [place] [address] [place] [address] 01/28/2025 9:00 AM EDT Office Visit [facility] [address] [place] [address] Saundra Bey, WOOD PRESERVING PLANT LABORER-ASSOCIATE CREATIVE DIRECTOR [address] [facility] [address] [place], [place] [address] 04/16/2025 10:30 AM EST Office Visit [facility] [address] [place] [address] Blanco Gutierrez MD [address] [place] [address] 01/12/2026 2:00 PM EDT Procedure Visit [facility] [address] [facility] [place] [address] Ankit Wilson, DO [address] [facility] [facility] [place] [address] documented as of this encounter Goals Goal [...] documented as of this encounter Care Teams Pollution Control Chemist Relationship Specialty Start Date End Date Blanco Gutierrez MD [address] [place] [address] PCP - General Family Medicine 06/05/23 Marian Huitron, PATRICIA [address] [place] [address] Registered Nurse Family Medicine 01/31/24 11/25/24 documented as of this encounter
--- OUTSIDE RECORDS SUMMARY | 2025-01-07 14:49 | XMS_ITS | Encounter Summary ---
Author Organization [facility] Address [id number] [address] [place] [address] Care Team Providers Care Test Baker Name Role Phone Blanco Gutierrez MD Primary Care Provider [phone] Reason for Visit * Reason Comments Med Refill Encounter Details Date Type Department Care Team (Late st Contact Info) Description 02/11/2022 Refill [facility] [address] [place] [address] Laura Ruffin MD [address] [place] [address] 101, [address] [place] [address] Social History Tobacco Use Types [...] have Coronavirus / COVID-19? No / Unsure 02/14/2022 1:05 PM EDT documented as of this encounter Miscellaneous Notes * Telephone Encounter - Dorene Bailey RN - 02/11/2022 1:32 PM EDT Medication: HCTZ Last ordered: 01/18/2022- too soon Last office visit: Next office visit: 05/16/2022 Dose verified: Prescription(s) pending for approval. documented in this encounter Plan of Treatment Upcoming Encounters Date Type Department Care Team (Late st Contact Info) Description 01/30/2025 10:45 AM EDT Office Visit [facility] A Department of [facility] [address] [facility] [address] [place] [address] Bernardino Cabrera MD [address] [facility] [place] [address] 02/11/2025 1:45 PM EDT Office Visit [facility] [address] [facility] [place] [address] Dena Fernandez, SENIOR SERVICE AIDE-MANAGER GRAPHIC [address] [facility], [address] [place], [place] [phone] 03/12/2025 10:00 AM EDT Office Visit [facility] [address] [facility] [address] [place] [address] Maggie Beal MD [address] [facility] [address] [place] [address] documented as of this encounter Visit Diagnoses Not on filedocumented in this encounter Care Teams Test Baker Relationship Specialty Start Date End Date Blanco Gutierrez MD PCP - General Family Medicine 1/18/25 documented as of this encounter
--- OUTSIDE RECORDS SUMMARY | 2025-01-07 14:49 | XMS_ITS | Encounter Summary ---
Author Organization [facility] Address [address] [place] [address] Care Team Providers Care Senior Environmental Engineer Name Role Phone Blanco Gutierrez MD Primary Care Provider [phone] Marian Huitron RN Unavailable [phone] Encounter Details Date Type Department Care Team (Late st Contact Info) Description 07/05/2024 External Result [facility] [address] [place] [phone] Blanco Gutierrez MD [address] [place] [address] Social History Tobacco Use Types Packs/Day Years [...] Never 01/31/2024 How often do you attend druze or orthodox serv ices? Never 01/31/2024 Do you belong to any clubs o r organizations such as druze groups, unions, fraternal or athletic groups, or [...] and heating? Not hard at all 01/31/2024 [facility] of Occupat ional Health - Occupational Stress [...] place to sleep or slept in a penitentiary (including now)? No 04/10/2023 Housing Stability Vital Sign Answer Fer e Recorded In the last 12 months, was t here a time when you were not able to pay the mortgage or rent on time? No 01/31/2024 Number of Times Moved in the Last Year Not on fi le 01/31/2024 At any time in the past 12 m [facility], were you homeless or living in a penitentiary (including now)? No 01/31/2024 Comments No Sex and Gender Information Value Date Recorded Sex Assigned at Not on file Legal Sex Female 6:36 PM EDT Gender Identity Not on file Sexual Orientation Not on file documented as of this encounter Plan of Treatment Upcoming Encounters Date Type Department Care Team (Late st Contact Info) Description 01/15/2025 1:40 PM EDT Clinical Support [facility] [address] [place] [address] [place] [address] 01/28/2025 9:00 AM EDT Office Visit [facility] [address] [place] [address] Saundra Bey, RAJ-TURBINE BLADE ASSEMBLER [address] [place], [place] [phone] 04/16/2025 10:30 AM EST Office Visit [facility] [address] [place] [address] Blanco Gutierrez MD [address] [place] [address] 01/12/2026 2:00 PM EDT Procedure Visit [facility] [address] [facility] [place] [address] Ankit Wilson DO [address] [facility] [address] [place] [place], [place] [phone] documented as of this encounter Goals Goal Patient Goal Type Associated Problems Recent Progress Patient-Stated? Author Record Cardiac Symptoms Daily Care Plan Cardiac Symptom Monitoring No Ankit Wilson DO Schedule Cardiology Consult Care Plan Needs Cardiology Consult No Ankit Wilson DO Record Vitals Daily Care Plan Vitals Monitoring No Ankit Wilson DO documented as of this encounter Procedures Procedure Name Priority Date/Time Associated Diagnosis Comments BASIC METABOLIC PANEL STAT 08/13/2024 12:14 PM EDT XR ABDOMEN 2 VIEWS SUPINE AND DECUBITUS 07/05/2024 6:13 PM EST documented in this encounter Results * (ABNORMAL) Basic metabolic panel (08/13/2024 12:14 PM EDT) [facility] Sodium 135 134 - 146 mmol/L [facility] Potassium, Bld 3.7 3.5 - 5.0 mmol/L [facility] Chloride 104 98 - 109 mmol/L [facility] Carbon Dioxide 22 22 - 32 mmol/L [facility] Anion Gap 9 5 - 15 mmol/L [facility] BUN 13 5 - 23 mg/dL [facility] Creatinine 0.81 0.40 - 1.00 mg/dL [facility] Comment:METHOD TRACEABLE TO IDMS STANDARD Glucose 175(H) 65 - 99 mg/dL [facility] Calcium 8.9 8.5 - 10.5 mg/dL [facility] EGFR >90 >59 ml/min/1.7 3sq.m [facility] Comment: Reported eGFR is based on the CKD-EPI 2020 equation that does not use a race coefficient. PERFORMED AT [address] [place] [address] 08/13/2024 12:1 4 PM EDT 08/13/2024 12:17 PM EDT us Blanco Gutierrez MD LAB BLOOD ORDERABLES Final Resul t [facility] * XR abdomen 2 views supine and decubitus (07/05/2024 6:13 PM EST) Anatomical Region Laterality Modality Abdomen Radiographic Dulce ging 07/05/2024 6:13 PM EST Narrative 07/05/2024 6:12 PM EST THIS EXAM WAS PERFORMED AT [facility] Abdomen: HISTORY: Abdominal pain. 4 views of the abdomen were obtained. There is moderate colonic stool. Bowel gas pattern nonspecific. Lung bases clear. IMPRESSION: Moderate colonic stool Finalized by Edward العلي MD on 07/05/2024 6:12 PM Procedure Note Radiology, Radiologist, MD - 07/05/2024 THIS EXAM WAS PERFORMED AT [facility] Abdomen: HISTORY: Abdominal pain. 4 views of the abdomen were obtained. There is moderate colonic stool.Bowel gas pattern nonspecific. Lung bases clear. IMPRESSION: Moderate colonic stool Finalized by Edward العلي MD on 07/05/2024 6:12 PM us Blanco Gutierrez MD IMG XR PROCEDURES Final Result documented in this encounter Visit Diagnoses Not on filedocumented in this encounter Additional Health Concerns Active Problems Noted Date Diagnosed Date Cardiac Symptom Monitoring 01/07/2023 Needs Cardiology Consult 01/07/2023 Vitals Monitoring 01/07/2023 documented as of this encounter Care Teams Senior Environmental Engineer Relationship Specialty Start Date End Date Blanco Gutierrez MD [address] [place] [address] PCP - General Family Medicine 06/05/23 Marian Huitron, PATRICIA [address] [place] [address] Registered Nurse Family Medicine 01/31/24 11/25/24 documented as of this encounter
--- OUTSIDE RECORDS SUMMARY | 2025-01-07 17:22 | XMS_ITS | CCD ---
Author Organization [facility] Care Team Providers Care 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 Name Role Phone ZOHREH CALVO Unavailable Unavailable PHYSICIAN, DEFAULT Admitting Unavailable PHYSICIAN, DEFAULT Attending Unavailable LUBNA, ZOHREH Primary Care Unavailable UNKNOWN, PROVIDER Admitting Unavailable UNKNOWN, PROVIDER Attending Unavailable LUBNA, ZOHREH Referring Unavailable LUBNA, ZOHREH Primary Care Unavailable UNKNOWN, PROVIDER Admitting Unavailable UNKNOWN, PROVIDER Attending Unavailable LUBNA, ZOHREH Referring Unavailable LUBNA, ZOHREH Primary Care Unavailable Lavern Kelsey Unavailable STEVE, DR HALE Consulting Unavailable NADERER, DR JON A Primary Care Unavailable STEVE, DR HALE Attending Unavailable STEVE, DR HALE Admitting Unavailable STEVE, DR HALE Consulting Unavailable NADERER, DR JON A Primary Care Unavailable STEVE, DR HALE Attending Unavailable STEVE, DR HALE Admitting Unavailable ZIEBER, DR DONNA Andrade Consulting Unavailable STEVE, DR HALE Consulting Unavailable NADERER, DR JON A Primary Care Unavailable STEVE, DR HALE Attending Unavailable STEVE, DR HALE Admitting Unavailable MISC, DR STEPHENS Consulting Unavailable NADERER, DR JON A Primary Care Unavailable MISC, DR STEPHENS Attending Unavailable MISC, DR STEPHENS Admitting Unavailable NADERER, DR BLANCO Kirk Primary Care Unavailable STEVE, DR HALE Attending Unavailable STEVE, DR HALE Admitting Unavailable NADERER, DR BLANCO Kirk Primary Care Unavailable STEVE, DR HALE Attending Unavailable STEVE, DR HLAE Admitting Unavailable NADERER, DR JON A Primary Care Unavailable STEVE, DR HALE Attending Unavailable STEVE, DR HALE Admitting Unavailable NADERER, DR JON A Primary Care Unavailable STEVE, DR HALE Attending Unavailable STEVE, DR HALE Admitting Unavailable NADERER, DR JON A Primary Care Unavailable STEVE, DR HALE Attending Unavailable STEVE, DR HALE Admitting Unavailable NADERER, DR BLANCO Kirk Primary Care Unavailable STEVE, DR HALE Attending Unavailable STEVE, DR HALE Admitting Unavailable NADERER, DR BLANCO Kirk Consulting Unavailable NADERER, DR BLANCO Kirk Primary Care Unavailable NADERER, DR BLANCO Kirk Attending Unavailable NADERER, DR BLANCO Kirk Admitting Unavailable STEVE, DR HALE Consulting Unavailable NADERER, DR BLANCO Kirk Primary Care Unavailable STEVE, DR HALE Attending Unavailable STEVE, DR HALE Admitting Unavailable ZIEBER, DR DONNA Andrade Consulting Unavailable STEVE, DR HALE Consulting Unavailable NADERER, DR BLANCO Kirk Primary Care Unavailable STEVE, DR HALE Attending Unavailable STEVE, DR HALE Admitting Unavailable NADERER, BLANCO Primary Care Physician Art Brito Attending Unavailab le Art Brito Admitting Unavailab le NON STAFF Primary Care Unavailable KateLeroy greenfielda Rodrigue Attending Unavailable Kate, Zahraa L Attending Unavailable Kate, Zahraa L Attending Unavailable Kate, Zahraa L Attending Unavailable Pieter Vargas Attending Unavailable Pieter Vargas Referring Unavailable NADERER, BLANCO Attending Unavailable NADERER, BLANCO Referring Unavailable NADERER, BLANCO Attending Unavailable NADERER, BLANCO Referring Unavailable Kate, Zahraa L Attending Unavailable Kate, Zahraa L Attending Unavailable Kate, Zahraa L Attending Unavailable Kate, Zahraa L Attending Unavailable Kate, Zahraa L Attending Unavailable Kate, Zahraa L Attending Unavailable Kate, Zahraa L Attending Unavailable Kate, Zahraa L Attending Unavailable FABIOLA FALCON Attending Unavailable FABIOLA FALCON Attending Unavailable FABIOLA FALCON Referring Unavailable Blanco Chavez MD Primary Care Provider Tomy RN, Marian Unavailable [phone] Solo Weinberg Primary Care Provider [phone] Nic NIEVES, Ana Unavailable Blanco Chavez MD Primary Care Provider Blanco Chavez MD Primary Care Provider [phone] Blanco Chavez MD Primary Care Provider Matt MARK, Blanco Primary Care Provider Unavailab alberto Chavez MD, Blanco Primary Care Provider Matt MARK, Blanco Primary Care Provider IRINA MORENO Attending Unavailable SOLO WEINBERG Primary Care Unavailabl e MORENO, IRINA Attending Unavailable WINDYSOLO GREENFIELD Primary Care Unavailabl e MORENO, IRINA Attending Unavailable WINDYSOLO GREENFIELD Primary Care Unavailabl e MORENO, IRINA Referring Unavailable WINDY, SOLO BOB Primary Care Unavailabl e MORENO, IRINA Referring Unavailable WINDY, SOLO BOB Primary Care Unavailabl e MORENO, IRINA Attending Unavailable SOLO WEINBERG Primary Care Unavailabl e STEVE, ANKIT R Referring Unavailable NADERER, BLANCO Primary Care Unavailable STEVE, ANKIT R Referring Unavailable NADERER, BLANCO Primary Care Unavailable NADERER, BLANCO Referring Unavailable NADERER, BLANCO Primary Care Unavailable NADERER, BLANCO Primary Care Unavailable CLAUDETTE OROZCO Attending Unavailable NADERER, BLANCO Primary Care Unavailable ISSAC WHITFIELD Attending Unavailable NADERER, BLANCO Primary Care Unavailable NADERER, BLANCO Primary Care Unavailable LANCE RODRIGUEZ Attending Unavailable NADERER, BLANCO Referring Unavailable NADERER, BLANCO Primary Care Unavailable NADERER, BLANCO Referring Unavailable NADERER, LBANCO Primary Care Unavailable NADERER, BLANCO Referring Unavailable NADERER, BLANCO Primary Care Unavailable NADERER, BLANCO Referring Unavailable NADERER, BLANCO Primary Care Unavailable DENA FERNANDEZ Referring Unavailable DENA FERNANDEZ Referring Unavailable NADERER, BLANCO Primary Care Unavailable NADERER, BLANCO Referring Unavailable NADERER, BLANCO Primary Care Unavailable Matt MARK, Blanco Primary Care Provider DENA FERNANDEZ Attending Unavailable NADERER, BLANCO Referring Unavailable NADERER, BLANCO Primary Care Unavailable RENETTA CABRERA Attending Unavailable NADERER, BLANCO Referring Unavailable NADERER, BLANCO Primary Care Unavailable NADERER, BLANCO Referring Unavailable NADERER, BLANCO Primary Care Unavailable VALE GONSALVES Attending Unavailable NADERER, BLANCO Referring Unavailable NADERER, BLANCO Primary Care Unavailable DENA FERNANDEZ Attending Unavailable NADERER, BLANCO Referring Unavailable NADERER, BLANCO Primary Care Unavailable NADERER, BLANCO Attending Unavailable NADERER, BLANCO Attending Unavailable SERGE, PIETER Hernadez Attending Unavailable STEVE, ANKIT Attending Unavailable NADERER, BLANCO Attending Unavailable NADERER, BLANCO Attending Unavailable STEVE, ANKIT Attending Unavailable NADERER, BLANCO Attending Unavailable PANDEY, MATTEO Attending Unavailable NADERER, BLANCO Attending Unavailable PANDEY, MATTEO Attending Unavailable PANDEY, MATTEO Attending Unavailable PIETER VARGAS Referring Unavailable PANDEY, MATTEO Attending Unavailable NADERER, BLANCO Attending Unavailable NADERER, BLANCO Attending Unavailable NADERER, BLANCO Attending Unavailable NADERER, BLANCO Primary Care Unavailable TURNWALD, SERENA L Referring Unavailable Allergies Allergy Classification Reported Allergen(s) Allergy Type Date of Onset Reaction(s) Facility (3 sources) Ciprofloxacin Drug Allergy 11-23-19 13 [facility] Repository (14 sources) predniSONE; Translations: [prednisone] Drug Allergy 11-23-19 13 Hyperglycemia (disorder) [facility] Repository (2 sources) Cephalexin; Translations: [Keflex] Drug Allergy 05-14-19 20 [facility] Repository (20 sources) Cephalexin; Translations: [cephalexin] Drug Allergy 08-03-19 21 Unknown (qualifier value) [facility] Comment on above: heart palpatations (20 sources) Ciprofloxacin; Translations: [ciprofloxacin] Drug Allergy 03-20-20 12 Diarrhea, Unknown, Other: See Comments [facility] (20 sources) NITROFURANTOIN, MACROCRYSTALS / Nitrofurantoin, Monohydrate; Translations: [nitrofurantoin] Drug Allergy 08-03-19 21 Anxiety (finding), Other: See Comments [facility] (20 sources) Hydrocortisone; Translations: [HYDROCORTISONE] Drug Allergy 03-20-20 12 Unknown, Other: See Comments [facility] Repository (20 sources) liraglutide; Translations: [LIRAGLUTIDE] Drug Allergy 12-05-19 17 Nausea Only, Nausea [facility] Repository (20 sources) metFORMIN; Translations: [METFORMIN] Drug Allergy 12-05-19 17 Diarrhea [facility] Repository (20 sources) natural latex rubber; Translations: [LATEX, NATURAL RUBBER] Propensity to adverse reactions to drug (disorder) 07-11-19 24 [facility] Repository (20 sources) NEUROMUSCULAR BLOCKERS, STEROIDAL; Translations: [NEUROMUSCULAR BLOCKERS, STEROIDAL] Propensity to adverse reactions to drug (disorder) 07-11-19 [facility] Repository (5 sources) NITROFURANTOIN MONOHYD/M-CRYST; Translations: [NITROFURANTOIN MONOHYD/M-CRYST] Propensity to adverse reactions to drug (disorder) 08-03-19 21 [facility] Repository (20 sources) Latex Propensity to adverse reactions 07-11-19 24 [facility] (20 sources) Nitrofurantoin Drug Allergy 08-03-19 21 [facility] (20 sources) Other Propensity to adverse reactions 11-30-19 Unknown [facility] Medications Current Medications Medication Drug Class(es) Dates Sig (Normalized) Sig (Original) [id number] 200 actuat albuterol 0.09 mg/actuat metered dose inhaler (20 sources) beta2-Adrenergic Agonist Start: 09-29-2024 End: 11-07-2024 take 3 mL by inhalation every six hours as needed for wheezing albuterol (PROVENTIL,VENTOLIN ) 2.5 mg /3 mL (0.083 %) nebulizer solution Indications: Mild intermittent asthma without complication Inhale 3 mL (2.5 mg total) by nebulization every 6 (six) hours as needed for wheezing or shortness of breath. 360 mL 11 11/07/2024 Active Start: 09-29-2024 End: 11-07-2024 take 2 puff(s) by inhalation every six hours as needed for wheezing albuterol (PROVENTIL HFA;VENTOLIN HFA) 90 mcg/actuation inhaler Indications: Mild intermittent asthma without complication Inhale 2 puffs every 6 (six) hours as needed for wheezing or shortness of breath. 18 g 3 11/07/2024 Active Start: 08-18-2024 albuterol (PRO VENTIL,VENTOLIN) nebulizer solution 2.5 mg Start: 01-25-2024 Albuterol Sulf ate Active MG CNTNEBULIZ January 25, 2024 12:00am Start: 03-07-2022 take 2 puff(s) by mo uth every six hours as needed albuterol (PROVENTIL HFA;VENTOLIN HFA) 90 mcg/actuation inhaler Indications: Mild intermittent asthma without complication TAKE 2 PUFFS BY MOUTH EVERY 6 HOURS NEEDED FOR WHEEZE OR FOR SHORTNESS OF BREATH 18 g 3 03/07/2022 Active Start: 06-29-2021 End: 01-11-2024 take 3 mL by inhalation every six hours as needed for wheezing albuterol (PROVENTIL,VENTOLIN) 2.5 mg /3 mL (0.083 %) nebulizer solution Indications: Mild intermittent asthma without complication Inhale 3 mL (2.5 mg total) by nebulization every 6 (six) hours as needed for wheezing or shortness of breath. 360 mL 11 01/11/2024 Active amoxicillin 875 mg / clavulanate 125 mg oral tablet (19 sources) Penicillin-class Antibacterial Start: 12-02-2024 End: 12-12-2024 take 1 tablet by mouth in the morning amoxicillin-clavulanate (Augmentin) 875-125 MG tablet Indications: Acute non-recurrent pansinusitis Take 1 tablet (875 mg) by mouth in the morning and 1 tablet (875 mg) before bedtime. Do all this for 10 days. 20 tablet 12/02/2024 12/12/2024 Active Start: 05-19-2024 End: 05-29-2024 take 1 tablet by mouth in the morning amoxicillin-clavulanate (Augmentin) 875-125 MG tablet Indications: Acute non-recurrent pansinusitis Take 1 tablet (875 mg) by mouth in the morning and 1 tablet (875 mg) before bedtime. Do all this for 10 days. 20 tablet 05/19/2024 05/29/2024 Active Start: 03-10-2024 take 1 tablet by sabrina th once in the morning amoxicillin-pot clavulanate (AUGMENTIN) 875-125 mg per tablet Take 1 tablet by mouth in the morning and 1 tablet before bedtime. 03/10/2024 Active Start: 03-10-2024 End: 04-14-2024 take 1 tablet by mouth in the morning amoxicillin-clavulanate (Augmentin) 875-125 MG tablet Indications: Chronic rhinosinusitis Take 1 tablet (875 mg) by mouth in the morning and 1 tablet (875 mg) before bedtime. 60 tablet 03/10/2024 04/14/2024 Discontinued 0.8 ml asfotase gwendolyn 100 mg/ml injection (20 sources) Tissue-nonspecific Alkaline Phosphatase Start: 01-25-2024 Asfotase Gwendolyn (Strensiq) 80 mg/0.8 mL solution Active MG SUBCUT January 25, 2024 12:00am Start: 11-27-2023 STRENSIQ 18 mg /0.45 mL solution Inject 2 mg/kg three times per week as directed. Rotate sites. 208.72 12 mL 10 11/27/2023 Active Start: 08-13-2023 Strensiq 18 MG /0.45ML solution injection 08/13/2023 Active Start: 08-13-2023 STRENSIQ 80 mg /0.8 mL soln Inject 2 mg/kg three times per week as directed. Rotate sites. 1855.28 08/13/2023 Active Start: 04-23-2023 End: 11-27-2023 STRENSIQ 80 mg/0.8 mL soluti on 04/23/2023 11/27/2023 Discontinued atorvastatin 20 mg oral tablet (20 sources) HMG-CoA Reductase Inhibitor Start: 01-25-2024 End: 12-02-2024 take 1 tablet by mouth once daily atorvastatin (Lipitor) 20 MG tablet Take 20 mg by mouth Daily 05/29/2024 12/02/2024 Discontinued Start: 01-25-2024 Atorvastatin A ctive MG PO January 25, 2024 12:00am Start: 05-18-2023 End: 10-17-2023 take 1 tablet by mouth in the morning atorvastatin (LIPITOR) 20 mg tablet Indications: Mixed hyperlipidemia TAKE 1 TABLET (20 MG TOTAL) BY MOUTH IN THE MORNING 90 tablet 3 05/18/2023 10/17/2023 Discontinued Start: 05-09-2022 End: 05-16-2023 take 1 tablet by mouth in the morning atorvastatin (LIPITOR) 20 mg tablet Indications: Mixed hyperlipidemia Take 1 tablet (20 mg total) by mouth in the morning. 90 tablet 3 05/09/2022 05/16/2023 Discontinued (Discontinued by another clinician) Blood Glucose Monitoring Suppl (Y[employer] Verio Flex System) device (5 sources) Start: 12-02-2024 Blood Glucose Monitoring Suppl ([employer] Verio Flex System) device Indications: Type 2 diabetes mellitus with hyperglycemia, with long-term current use of insulin ([facility]) 1 each in the morning and 1 each in the evening and 1 each before bedtime. 1 each 12/02/2024 Active blood-glucose meter (ONETOUCH VERIO METER) [facility] (11 sources) Start: 02-19-2024 blood-glucose meter (ONETOUCH VERIO METER) [facility] Indications: Type 2 diabetes mellitus with hyperglycemia, with long-term current use of insulin ([facility]) USE DIRECTED TO TEST 1 TIME DAILY 1 each 02/19/2024 Active Blood-Glucose Sensor (Dexcom G7 Sensor) device (1 source) Start: 01-25-2024 Blood-Glucose Sensor (Dexcom G7 Sensor) device Active EACH .ROUTE .MEDSUPPLY 1 January 25, 2024 12:00am As directed 60 actuat budesonide 0.16 mg/actuat / formoterol fumarate 0.0045 mg/actuat metered dose inhaler (20 sources) Corticosteroid , beta2-Adrenerg ic Agonist Start: 03-24-2024 take 2 puff(s) by inhalation at bedtime budesonide-formotero l (Symbicort) 160-4.5 MCG/ACT inhaler INHALE 2 PUFFS IN THE MORNING AND BEFORE BEDTIME 03/24/2024 Active Start: 01-25-2024 Budesonide-For moterol Active INHALATION January 25, 2024 12:00am Start: 06-15-2022 End: 11-07-2024 take 2 puff(s) by inhalation in the morning SYMBICORT 160-4.5 mcg/actuation inhaler Indications: Mild intermittent asthma without complication Inhale 2 puffs in the morning and 2 puffs before bedtime. 10.2 g 11 11/07/2024 Active cetirizine hydrochloride 10 mg oral tablet (20 sources) Histamine-1 Receptor Antagonist Start: 10-08-2024 take 1 tablet by mouth once daily in the morning cetirizine (ZyrTEC) 10 MG tablet Indications: Seasonal allergic rhinitis due to pollen TAKE 1 TABLET BY MOUTH EVERY DAY IN THE MORNING 90 tablet 1 10/08/2024 Active Start: 02-28-2024 take 1 tablet by sabrina once daily in the morning cetirizine (ZyrTEC) 10 MG tablet Indications: Seasonal allergic rhinitis due to pollen TAKE 1 TABLET BY MOUTH EVERY DAY IN THE MORNING 90 tablet 1 02/28/2024 Active Start: 06-27-2023 take 1 tablet by sabrina th in the morning cetirizine (ZyrTEC ALLERGY) 10 MG tablet Indications: Seasonal allergic rhinitis due to pollen Take 1 tablet (10 mg) by mouth in the morning. 30 tablet 5 06/27/2023 Active Start: 06-29-2021 take 1 capsule by mo uth once daily cetirizine (ZyrTEC) 10 mg capsule Indications: Mild intermittent asthma without complication Take 1 capsule (10 mg total) by mouth daily. 30 capsule 11 06/29/2021 Active chlorhexidine gluconate 1.2 mg/ml mouthwash (1 source) Start: 01-25-2024 Chlorhexidine Gluconate Active MUCOUS MEM January 25, 2024 12:00am cholecalciferol 0.05 mg oral capsule (15 sources) Vitamin D Cholecalciferol, Vitamin D3, (VITAMIN D-3) 2,000 unit cap Take by mouth once daily. Active clindamycin 300 mg oral capsule (4 sources) Lincosamide Antibacterial Start: 02-13-2024 End: 02-23-2024 take 1 capsule by mouth in the morning, then take 1 capsule by mouth in the evening, then take 1 capsule by mouth at bedtime clindamycin (Cleocin) 300 MG capsule Indications: UTI symptoms Take 1 capsule (300 mg) by mouth in the morning and 1 capsule (300 mg) in the evening and 1 capsule (300 mg) before bedtime. Do all this for 10 days. 30 capsule 02/13/2024 02/23/2024 Active clobetasol propionate 0.5 mg/ml topical solution (15 sources) Corticosteroid Start: 06-02-2024 clobetasol (Temovate) 0.05 % external solution Indications: Dermatitis Apply topically 2 (two) times a day 50 mL 2 06/02/2024 Active Continuous Blood Gluc Sensor (Dexcom G6 Sensor) misc (20 sources) Start: 03-15-2023 Continuous Blood Gluc Sensor (Dexcom G6 Sensor) misc USE DIRECTED CHANGE SENSOR EVERY 10 DAYS 03/15/2023 Active Continuous Blood Gluc Transmit (Dexcom G6 transmitter) misc (20 sources) Start: 04-03-2023 Continuous Blood Gluc Transmit (Dexcom G6 transmitter) misc CHANGE EVERY 3 MONTHS DIRECTED 04/03/2023 Active cyproheptadine hydrochloride 4 mg oral tablet (14 sources) Start: 01-25-2024 Cyproheptadine Active MG PO January 25, 2024 12:00am Start: 12-17-2023 End: 01-23-2024 take 0.5 tablet by mouth at bedtime cyproheptadine (Periactin) 4 MG tablet Indications: Cervical dystonia , Sinus congestion Take 0.5 tablets (2 mg) by mouth at bedtime 15 tablet 3 12/17/2023 01/23/2024 Discontinued End: 10-17-2023 take 1 tablet by mouth three times daily as needed cyproheptadine (PERIACTIN) 4 mg tablet Take 1 tablet (4 mg total) by mouth 3 (three) times a day as needed for allergies. 10/17/2023 Discontinued DEXCOM G7 SENSOR eduar (13 sources) Start: 05-19-2024 DEXCOM G7 SENS OR eduar CHANGE EVERY 10 DAYS 05/19/2024 Active DEXCOM G7 SENSOR device (19 sources) Start: 11-03-2024 DEXCOM G7 SENS OR device Indications: Type 2 diabetes mellitus with hyperglycemia, with long-term current use of insulin ([facility] [place] [facility]) CHANGE EVERY 10 DAYS 9 each 3 11/03/2024 Active Start: 10-17-2023 End: 11-03-2024 DEXCOM G7 SENSOR device Noa cations: Type 2 diabetes mellitus with hyperglycemia, with long-term current use of insulin ([facility] [place] [facility]) Change every 10 days 9 each 3 10/17/2023 11/03/2024 Discontinued Start: 10-17-2023 DEXCOM G7 SENS OR device Indications: Type 2 diabetes mellitus with hyperglycemia, with long-term current use of insulin ([facility] [place]) Change every 10 days 9 each 3 10/17/2023 Active DULoxetine 30 mg delayed release oral capsule (17 sources) Serotonin and Norepinephrine Reuptake Inhibitor Start: 01-25-2024 Duloxetine Active MG PO January 25, 2024 12:00am Start: 01-02-2024 End: 03-10-2024 take 1 capsule by mouth once daily DULoxetine (Cymbalta) [address] capsule Indications: ISAAC (generalized anxiety disorder) ([facility]) Take 1 capsule (30 mg) by mouth Daily Do not crush or chew. 30 capsule 3 01/02/2024 03/10/2024 Discontinued [id number] 0.3 ml EPINEPHrine 1 mg/ml auto-injector (20 sources) alpha-Adrenergic Agonist, beta-Adrenergic Agonist, Catecholamine Start: 01-25-2024 Epinephrine Activ e IM January 25, 2024 12:00am Start: 01-12-2024 EPINEPHrine (E pipen) 0.3 MG/0.3ML injection syringe Indications: Allergic reaction, initial encounter Inject 0.3 mL (0.3 mg) as directed if needed for anaphylaxis Call 911 after use. 1 each 2 08/07/2024 Active famotidine 40 mg oral tablet (20 sources) Histamine-2 Receptor Antagonist Start: 05-22-2024 take 1 tablet by mouth once daily famotidine (Pepcid) 40 MG tablet Indications: GERD without esophagitis TAKE 1 TABLET BY MOUTH EVERY DAY 90 tablet 1 11/07/2024 Active Start: 01-25-2024 Famotidine Act katalina MG PO January 25, 2024 12:00am Start: 01-23-2024 take 1 tablet by sabrina once daily famotidine (Pepcid) 40 MG tablet Indications: GERD without esophagitis Take 1 tablet (40 mg) by mouth Daily 30 tablet 5 01/23/2024 Active fluticasone propionate 0.05 mg/actuat metered dose nasal spray (20 sources) Corticosteroid Start: 09-30-2024 take 2 spray(s) nasal route in the morning fluticasone (Flonase) 50 MCG/ACT nasal spray Indications: Seasonal allergic rhinitis due to pollen SPRAY 2 SPRAYS INTO EACH NOSTRIL IN THE MORNING 48 mL 1 09/30/2024 Active Start: 04-07-2024 take 2 spray(s) nasa l route in the morning fluticasone (Flonase) 50 MCG/ACT nasal spray Indications: Seasonal allergic rhinitis due to pollen SPRAY 2 SPRAYS INTO EACH NOSTRIL IN THE MORNING 48 mL 1 04/07/2024 Active Start: 01-25-2024 Fluticasone Pr opionate Active INTRANASAL January 25, 2024 12:00am Start: 05-09-2024 take 2 spray(s) nasa l route in the morning fluticasone (Flonase) 50 MCG/ACT nasal spray Indications: Seasonal allergic rhinitis due to pollen SPRAY 2 SPRAYS INTO EACH NOSTRIL IN THE MORNING 48 mL 1 09/20/2023 Active Start: 10-28-2020 fluticasone (F LONASE) 50 mcg/actuation nasal spray Use 1 Sigurd in each nostril as needed for cold/allergy symptoms. 10/28/2020 Active Start: 10-28-2020 take 1 spray(s) nasa l route once daily fluticasone propionate (FLONASE) 50 mcg/actuation nasal spray Administer 1 spray into each nostril daily. 15.8 mL 11 10/28/2020 Active glucagon (GVOKE) 1 mg/0.2 mL injection (5 sources) Start: 08-19-2024 glucagon (GVOKE) 1 mg/0.2 mL injection Inject 0.2 mL subcutaneously as needed. 0.2 mL 3 08/19/2024 Active hydrOXYzine hydrochloride 25 mg oral tablet (20 sources) Antihistamine hydrOXYzine HCl (ATARAX) 25 mg tablet Take 25 mg by mouth as needed for anxiety. Active ibuprofen 600 mg oral tablet (20 sources) Nonsteroidal Anti-inflammatory Drug Start: 03-13-2024 take 1 tablet by mouth every six hours as needed ibuprofen 600 MG tablet Take 1 tablet by mouth every 6 (six) hours if needed 03/13/2024 Active take 4 tablets by mo [facility] once daily as needed Ibuprofen 200 mg cap Take by mouth. Take s up to four tablets once daily only as needed Active 3 ml insulin glargine 100 unt/ml pen injector (2 sources) Insulin Analog Start: 09-19-2024 insulin glargi ne (LANTUS SOLOSTAR U-100 INSULIN) 100 unit/mL (3 mL) Inject 20 Units subcutaneously daily at bedtime. 10 mL 3 09/19/2024 Active insulin lispro 100 unt/ml injectable solution (20 sources) Insulin Analog Start: 01-25-2024 Insulin Lispro (Humalog U-100 Insulin) 100 unit/mL solution Active CNTSUBQINF January 25, 2024 12:00am Start: 10-17-2023 insulin lispro (HumaLOG U-100 Insulin) 100 unit/mL injection Indications: Type 2 diabetes mellitus with hyperglycemia, with long-term current use of insulin ([facility]) USE UP TO 70 UNITS A DAY PER INSULIN PUMP DX:E11.9 60 mL 3 10/17/2023 Active Start: 05-18-2023 End: 10-17-2023 insulin lispro (HumaLOG U-10 0 Insulin) 100 unit/mL injection Indications: Type 2 diabetes mellitus with hyperglycemia, with long-term current use of insulin ([facility]) USE UP TO 50 UNITS A DAY PER INSULIN PUMP DX:E11.9 50 mL 3 07/17/2023 10/17/2023 Discontinued (Reorder) Start: 06-27-2022 End: 05-18-2023 HumaLOG U-100 Insulin 100 un it/mL injection Indications: Type 2 diabetes mellitus with hyperglycemia, with long-term current use of insulin ([facility]) Use up to 100 units a day per insulin pump DX:E11.9 30 mL 11 06/27/2022 05/18/2023 Discontinued insulin lispro ( HumaLOG KWIKPEN) 100 UNIT/ML injection Inject under the skin 3 (three) times a day with meals. Active HumaLOG Active Labetalol (20 sources) beta-Adrenergic Torey Start: 01-25-2024 Labeta lol Active MG PO January 25, 2024 12:00am Start: 05-18-2022 labetaloL (NOR MODYNE) 100 mg tablet Take 1 tablet (100 mg total) by mouth in the morning and 1 tablet (100 mg total) at noon and 1 tablet (100 mg total) before bedtime. 05/18/2022 Active labetalol (Normo dyne) 200 MG tablet Take 100 mg by mouth in the morning and 100 mg in the evening and 100 mg before bedtime. Active take 1 tablet by sabrina th twice daily labetalol (TRANDATE) 100 mg tablet Take 100 mg by mouth two times a day. Active Labetalol HCl Ac tive Lactulose (20 sources)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 disorders (1 source) Diarrhea Onset: 4 Episodic Other inflammatory condition of skin (20 sources) Itching of ear; Translations: [Pruritus, unspecified] Onset: 3 Resolved: 4 01-02-2024 Episodic Other lower respiratory disease (20 sources) Wheezing; Translations: [Wheezing] Onset: 3 Resolved: 4 06-18-2023 Episodic Other nervous system disorders (20 sources) Carpal tunnel syndrome; Translations: [Carpal tunnel syndrome, unspecified upper limb] Onset: 3 Resolved: 4 01-02-2024 Chronic Other nervous system disorders (20 sources) Involuntary movement; Translations: [Unspecified abnormal involuntary movements] Onset: 4 01-04-2023 Episodic Other nervous system disorders (20 sources) Abnormal gait; Translations: [Unspecified abnormalities of gait and mobility] Onset: 3 Resolved: 5 01-04-2023 Episodic Other nervous system disorders (20 sources) Impairment of balance; Translations: [Other abnormalities of gait and mobility] Onset: 2 01-04-2023 Episodic Other nervous system disorders (20 sources) Tremor; Translations: [Tremor, unspecified] Onset: 3 01-04-2023 Episodic Other non-traumatic joint disorders (20 sources) Pain in right knee; Translations: [Pain in joint, lower leg] Onset: 3 01-04-2023 Episodic Other nutritional; endocrine; and metabolic disorders (20 sources) Body mass index 25-29 - overweight; Translations: [Overweight] Onset: 7 01-04-2023 Episodic Other and delivery including normal (8 sources) Encounter for routine follow-up; Translations: [Encounter for care and examination of lactating mother] Onset: 1 Episodic Other skin disorders (1 source) Rash and other nonspecific skin eruption; Translations: [Rash and other nonspecific skin eruption] Onset: 5 Episodic Other upper respiratory disease (20 sources) Allergic rhinitis; Translations: [Allergic rhinitis, unspecified] Onset: 7 Resolved: 4 10-15-2023 Chronic Other upper respiratory disease (20 sources) Seasonal allergic rhinitis; Translations: [Other seasonal allergic rhinitis] Onset: 3 Resolved: 3 04-17-2023 Chronic Other upper respiratory disease (20 sources) Nasal congestion; Translations: [Nasal congestion] Onset: 8 Resolved: 5 01-04-2023 Episodic Other upper respiratory disease (1 source) Pain in throat Onset: 5 Episodic Other upper respiratory infections (20 sources) Acute pansinusitis; Translations: [Acute pansinusitis, unspecified] Onset: 4 Resolved: 5 01-02-2024 Episodic Poisoning by nonmedicinal substances (20 sources) Allergic reaction to bee sting; Translations: [Toxic effect of venom of bees, accidental (unintentional), initial encounter] Onset: 4 01-23-2024 Episodic Residual codes; unclassified (20 sources) Edema of lower extremity; Translations: [Localized edema] Onset: 3 01-04-2023 Episodic Residual codes; unclassified (20 sources) Passive smoker; Translations: [Contact with and (suspected) exposure to environmental tobacco smoke (acute) (chronic)] Onset: 3 01-04-2023 Episodic Residual codes; unclassified (1 source) At risk of disease; Translations: [Other specified personal risk factors, not elsewhere classified] 07-17-2023 Episodic Spondylosis; intervertebral disc disorders; other back problems (20 sources) Neck pain; Translations: [Cervicalgia] Onset: 2 01-04-2023 Episodic Syncope (20 sources) Syncope; Translations: [Syncope and collapse] Onset: 3 Resolved: 4 06-18-2023 Episodic Unclassified (1 source) Cough R05.9 Onset: 2 Resolved: 2 Unclassified (1 source) Inappropriate sinus tachycardia, so stated; Translations: [Inappropriate sinus tachycardia, so stated] Onset: 4 Unclassified (1 source) Supraventricular tachycardia, unspecified; Translations: [Supraventricular tachycardia, unspecified] Onset: 4 Viral infection (1 source) Viral infection, unspecified; Translations: [Viral infection, unspecified] Onset: 4 Episodic Viral infection (1 source) COVID-19 Onset: 2 Resolved: 2 Results Test Name Value Interpretation Reference Range Facility US ABDOMEN LMTDon 10-17-2024 US ABDOMEN LMTD US ABDOMEN LMTD History: Abdominal pain Exam/Technique: Multiple sonographic images [...] Erickson Elder MD on 10/17/2024 8:19 AM [facility] CNOVon 09-19-2024 CNOV Office Visit (ENDOMN ) ----- DUNN,AUGUST ([id number]) 1990 F Date Time Provider Department 09/19/24 12:40 PM IRINA MORENO ENDOMN During your visit today, we recorded the following information about you: Pulse Blood pressure Weight Last Period 96/minute 140/85 85.5 kg 08/19/24 Irina Moreno MD 09/19/2024 1:02 PM Addendum Basal rates: MN -0.8 units/hr 9 am: increase to 1 unit/hr 10 pm: 0.8 21.8 units/day 1:40 ISF 1:12 carb ratio Target 110 Ann Villafana MA 09/24/2024 1:31 PM Signed Irina Moreno MD 09/24/2024 1:31 PM Signed Endocrine consult note Follow-up for juvenile onset onset hypophosphatasia, type 2 diabetes, hyperlipidemia, and PCOS. 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 Diagnosed after having low alk phos levels. Patient has generalized pain, mind fogginess, and severe dental issues. On treatment. No longer need a cane. Diagnosed locally by Dr Lennon with genetic testing. Patient on treatment but taking medication every other week since she reports injection site reactions. Genetic testing below. Patient has son who was born in 2020 and also has juvenile onset hypophosphotasia. Ongoing sxs on lower dose of asfotase gwendolyn. Since last visit, I increased dosing to 3x/week (full dose) and patient doing better. Needs me to discuss with panther the dosing to avoid waste with vials. Also has type 2 diabetes. On insulin pump. Met with educator. On t slim A1c 7% last visit. Spikes around lunch. Now doing ok. Basal rates: MN - MN: 0.8 units/hr 1:40 ISF 1:12 carb ratio Target 110 Lives with daughter born in 2018, son born in 2020. Min exercise. Son with HPP too. Also has PCOS. Irregular periods. Has hirsutism, acne. 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 Unable to lose weight. I ordered mounjaro 2.5 mg WEEKLY but this resulted in severe constipation unfortunately. On metformin. Otherwise, no other acute complaints or concerns today. Answers submitted by the patient for this visit: Core Review of Systems (Submitted on 09/19/2024) Recent unintentional weight change: No Nasal Congestion: Yes Hearing Loss: Yes Vision Disturbance: Yes A cough: No Difficulty Breathing?: No Chest pain: No Irregular heartbeat: No Leg Swelling: No Nausea: No Diarrhea: No Black tarry stools: No Difficulty Urinating?: No Awaken at Night More Than Once to Urinate?: No Joint pain or stiffness: Yes Muscle aches: Yes Leg or Foot Discomfort at Night?: Yes A rash: No Dizziness: Yes Headaches: No Memory Loss: No Seizures: No Patient's Past Family and Social history have been reviewed with the patient, and updated as appropriate. Please see relevant sections in [facility] EHR for details. PHYSICAL EXAM: BP 140/85 Pulse 96 Wt 85.5 kg (188 lb 7.9 oz) LMP 08/19/2024 (Approximate) There is no height or weight on file to calculate BMI. General: WNWD, NAD DATA REVIEW: Latest Ref Rng 05/22/2024 Albumin 3.9 - 4.9 g/dL 4.6 Calcium 8.5 - 10.2 mg/dL 9.8 Phosphorus 2.7 - 4.8 mg/dL 3.8 Glucose 74 - 99 mg/dL 139 (H) BUN 7 - 21 mg/dL 12 Creatinine 0.58 - 0.96 mg/dL 0.71 Sodium 136 - 144 mmol/L 139 Potassium 3.7 - 5.1 mmol/L 4.3 Chloride 98 - 107 mmol/L 102 CO2 22 - 30 mmol/L 25 Anion Gap 8 - 15 mmol/L 12 eGFR >=60 mL/min/1.73m? 114 Total Cholesterol, Nonfasting <200 mg/dL 257 (H) Triglycerides, Nonfasting <150 mg/dL 174 (H) HDL Cholesterol, Nonfasting >39 mg/dL 47 LDL Cholesterol, Nonfasting <100 mg/dL 175 (H) Non HDL Cholesterol, Nonfasting <130 mg/dL 210 (H) VLDL Cholesterol, Nonfasting <30 mg/dL 35 (H) Total Chol/HDL Ratio, Nonfasting <5.10 mg/dL 5.47 (H) LDL/HDL Ratio, Nonfasting <2.54 mg/dL 3.72 (H) Sex Hormone Bind GLB 25 - 122 nmol/L 30 Testosterone Total 9 - 55 ng/dL 37 Testosterone Free 1.3 - 9.2 pg/mL 6.4 Testo Bioavailable 4.1 - 25.5 ng/dL 18.2 Glutamic Acid Decarboxylas Ab Qualitative Negative Negative Glutamic Acid Decarboxylase Ab <=5.0 IU/mL <5.0 Magnesium 1.7 - 2.3 mg/dL 2.2 DHEA-S 60.9 - 337.0 ug/dL 60.7 (L) TSH 0.270 - 4.200 mIU/L 0.719 C-Peptide 1.1 - 4.4 ng/mL 4.5 (H) Islet Cell Ab <1:4 <1:4 01/14/2024 Total testosterone: 48 TSH: 0.81 Free T4; 1.07 (0.61 to 1.6) FSH: 10.1 LH: 8.6 A1c; 7 24: Na; 137 10/19/202308/2024 thyroid ultrasound Impression/plan: 34 year old female with HPP, type 2 diabetes, PCOS, obesity HPP Getting all doses of asfotase gwendolyn now Need to call [place] to fix dosing Get labs done prior to next visit Long discussion re; pathophysiology, etc of disease last visit 2. Type 2 diabetes Adjust pump settings due to spike in numbers: Basal rates: MN -0.8 units/hr 9 am: increase to 1 unit/hr 10 pm: 0.8 21.8 units/day 1:40 ISF 1:12 carb ratio Target 110 Get labs Update me if there are concerns again Cont metformin but stay off moun (more content not included)... Normal [facility] ON DEMANDon 5 Ordered by an unspec ified provider. [facility] HEMOGLOBIN A1C (POC)on 09-19 HbA1c (Bld) [Mass fraction] 6.9 % Abnormal 4.3 - 5.6 % [facility] Comment on above: Location:[facility] [place], [address] [place] [address], [facility] Point of care (POC) Hemoglobin A1c (HGBA1C) [...] specific diabetes management situations: The POC device sql programmer analyst provides a normal range of 4.2% to 6.5% for the HGBA1C POC test. However, the [place] [employer] guidelines indicate that patients with [...] anemia) that alter red blood cell lifespan. Interpretation and review of laboratory results Abnormal [facility] CNPNon 08-20-2024 [place] Telephone (ENDOMN) ----- ADITI ([id number]) 1990 F Date Time Provider Department 08/20/24 IRINA MORENO During your visit today, we recorded the following information about you: Tamiko Alvarado 08/20/2024 3:39 PM Signed Received Retroperitoneal Ultrasound results from [facility] Indexing results into patient's chart. Tamiko Alvarado Platform Loader II Endocrinology AND Metabolism [place] X-20, F-20 Irina Moreno MD 08/22/2024 4:56 PM Signed Will address at September visit Irina Moreno MD Dept of Endocrinology Allergies As of Date: 08/20/2024 Noted Allergy Reaction HYDROCORTISONE 03/20/2012 14 - Other: See Comments Comments: steroid cream she placed in ear, caused entire face to swell, doesn't know name of cream CIPROFLOXACIN 03/20/2012 14 - Other: See Comments Comments: dizzy, loss of equilibrium METFORMIN 12/04/2016 6 - Diarrhea NEUROMUSCULAR BLOCKERS, STEROIDAL 07/11/2023 7 - Swelling Comments: Increases blood sugar NITROFURANTOIN MONOHYD/M-CRYST 08/02/2020 14 - Other: See Comments LATEX, NATURAL RUBBER 07/11/2023 2 - Rash Date Reviewed: 05/22/2024 Reviewed by: Abel Zapata MA - Fully Assessed Reason for Visit: Results [95] Cmt: Retroperitoneal Ultrasound Prescriptions as of 08/22/2024 - glucagon (GVOKE) 1 mg/0.2 mL injection Inject 0.2 mL subcutaneously as needed. - blood sugar diagnostic (PixelEXX SystemsTOUCH VERIO TEST STRIPS) test strip Use with blood glucose test three times a day. E11.9 INSULIN DEPENDENT - metFORMIN ER (GLUMETZA) 500 mg 24 hr tablet Take 1 tablet by mouth daily with dinner. - rosuvastatin (CRESTOR) 5 mg tablet Take one tablet TWICE weekly by mouth - metFORMIN ER (GLUCOPHAGE XR) 500 mg 24 hr tablet Take 1 tablet by mouth daily with breakfast. - levothyroxine (SYNTHROID) 25 mcg tablet Take 1 tablet by mouth daily before breakfast. - STRENSIQ 80 mg/0.8 mL soln Inject 2 mg/kg three times per week as directed. Rotate sites. 1855.28 - DEXCOM G7 SENSOR eduar CHANGE EVERY 10 DAYS - ONETOUCH VERIO FLEX METER USE DIRECTED TO TEST BLOOD SUGAR ONE TIME DAILY - famotidine (PEPCID) 40 mg tablet Take 1 tablet by mouth once daily. - hydrOXYzine HCl (ATARAX) 25 mg tablet Take 25 mg by mouth as needed for anxiety. - fluticasone (FLONASE) 50 mcg/actuation nasal spray Use 1 Sigurd in each nostril as needed for cold/allergy symptoms. - insulin lispro (HUMALOG) 100 unit/mL injection 50 units a day per insulin pump - labetalol (TRANDATE) 100 mg tablet Take 100 mg by mouth two times a day. - ONETOUCH DELICA PLUS LANCET 33 gauge USE DIRECTED TO TEST BLOOD SUGAR ONE TIME DAILY - tirzepatide (MOUNJARO) 2.5 mg/0.5 mL pen injector Inject 2.5 mg subcutaneously one time a week. Take 2.5 mg weekly subcut - Cetirizine 10 mg cap Take by mouth once daily. Does not take Cetirizine at present, while she is taking Antivert - hydrochlorothiazide 25 mg tablet Take 25 mg by mouth once daily. - mometasone (NASONEX) 50 mcg/actuation nasal spray Use 2 Sprays in the nose once daily. - meclizine 25 mg Tab Take 25 mg by mouth three times daily as needed. - Cholecalciferol, Vitamin D3, (VITAMIN D-3) 2,000 unit cap Take by mouth once daily. - Ibuprofen 200 mg cap Take by mouth. Takes up to four tablets once daily only as needed Problem List As Of Date 08/20/2024 Noted Resolved Fibromyalgia syndrome [M79.7] 03/20/2012 Loss of balance [R26.89] 03/20/2012 Encounter Status:Closed by IRINA MORENO on 08/22/24 [facility] Telephone (ENDOMN) ----- ADITI ([id number]) 1990 F Date Time Provider Department 08/20/24 IRINA MORENO During your visit today, we recorded the following information about you: Tamiko Alvarado 08/20/2024 10:09 AM Signed Received thyroid US results via fax from [facility] Indexing into patient's chart Tamiko Alvarado Platform Loader II Endocrinology AND Metabolism [facility] X-20, F-20 Irina Moreno MD 08/22/2024 4:56 PM Signed Will address at 09/19/2024 visit. Irina Moreno MD Dept of Endocrinology Allergies As of Date: 08/20/2024 Noted Allergy Reaction HYDROCORTISONE 03/20/2012 14 - Other: See Comments Comments: steroid cream she placed in ear, caused entire face to swell, doesn't know name of cream CIPROFLOXACIN 03/20/2012 14 - Other: See Comments Comments: dizzy, loss of equilibrium METFORMIN 12/04/2016 6 - Diarrhea NEUROMUSCULAR BLOCKERS, STEROIDAL 07/11/2023 7 - Swelling Comments: Increases blood sugar NITROFURANTOIN MONOHYD/M-CRYST 08/02/2020 14 - Other: See Comments LATEX, NATURAL RUBBER 07/11/2023 2 - Rash Date Reviewed: 05/22/2024 Reviewed by: Abel Zapata MA - Fully Assessed Reason for Visit: Results [95] Prescriptions as of 08/22/2024 - glucagon (GVOKE) 1 mg/0.2 mL injection Inject 0.2 mL subcutaneously as needed. - blood sugar diagnostic (PixelEXX SystemsTOUCH VERIO TEST STRIPS) test strip Use with blood glucose test three times a day. E11.9 INSULIN DEPENDENT - metFORMIN ER (GLUMETZA) 500 mg 24 hr tablet Take 1 tablet by mouth daily with dinner. - rosuvastatin (CRESTOR) 5 mg tablet Take one tablet TWICE weekly by mouth - metFORMIN ER (GLUCOPHAGE XR) 500 mg 24 hr tablet Take 1 tablet by mouth daily with breakfast. - levothyroxine (SYNTHROID) 25 mcg tablet Take 1 tablet by mouth daily before breakfast. - STRENSIQ 80 mg/0.8 mL soln Inject 2 mg/kg three times per week as directed. Rotate sites. 1855.28 - DEXCOM G7 SENSOR eduar CHANGE EVERY 10 DAYS - ONETOUCH VERIO FLEX METER USE DIRECTED TO TEST BLOOD SUGAR ONE TIME DAILY - famotidine (PEPCID) 40 mg tablet Take 1 tablet by mouth once daily. - hydrOXYzine HCl (ATARAX) 25 mg tablet Take 25 mg by mouth as needed for anxiety. - fluticasone (FLONASE) 50 mcg/actuation nasal spray Use 1 Sigurd in each nostril as needed for cold/allergy symptoms. - insulin lispro (HUMALOG) 100 unit/mL injection 50 units a day per insulin pump - labetalol (TRANDATE) 100 mg tablet Take 100 mg by mouth two times a day. - ONETOUCH DELICA PLUS LANCET 33 gauge USE DIRECTED TO TEST BLOOD SUGAR ONE TIME DAILY - tirzepatide (MOUNJARO) 2.5 mg/0.5 mL pen injector Inject 2.5 mg subcutaneously one time a week. Take 2.5 mg weekly subcut - Cetirizine 10 mg cap Take by mouth once daily. Does not take Cetirizine at present, while she is taking Antivert - hydrochlorothiazide 25 mg tablet Take 25 mg by mouth once daily. - mometasone (NASONEX) 50 mcg/actuation nasal spray Use 2 Sprays in the nose once daily. - meclizine 25 mg Tab Take 25 mg by mouth three times daily as needed. - Cholecalciferol, Vitamin D3, (VITAMIN D-3) 2,000 unit cap Take by mouth once daily. - Ibuprofen 200 mg cap Take by mouth. Takes up to four tablets once daily only as needed Problem List As Of Date 08/20/2024 Noted Resolved Fibromyalgia syndrome [M79.7] 03/20/2012 Loss of balance [R26.89] 03/20/2012 Encounter Status:Closed by IRINA [facility]ORENO [facility]22/[facility] Telephone (WILMERBina) ----- ADITI ([id number]) 1990 F Date Time Provider Department 08/19/24 ROXI PALAFOX During your visit today, we recorded the following information about you: Roxi Palafox, PATRICIA 08/19/2024 3:[address] Moreno, This patient is currently using MDI/ Insulin Pump/Insulin Upon chart review, please consider ordering glucagon for them. Possible options: -Baqsimi nasal spray, 3mg, disp: 1, Epic code [id number] -Gvoke HypoPen 2-pack, 1mg/0.2mL, disp: 1, Epic code [id number] -Glucagon emergency kit, 1mg, disp: 1 kit, Epic code: 88 Roxi Palafox, MSN RN, [facility] Irina Moreno MD 08/19/2024 11:58 PM Signed The following approved medication requests have been transmitted electronically. Requested Prescriptions Signed Prescriptions Disp Refills glucagon (GVOKE) 1 mg/0.2 mL injection 0.2 mL 3 Sig: Inject 0.2 mL subcutaneously as needed. Authorizing Provider: IRINA MORENO MD Thank you Allergies As of Date: 08/19/2024 Noted Allergy Reaction HYDROCORTISONE 03/20/2012 14 - Other: See Comments Comments: steroid cream she placed in ear, caused entire face to swell, doesn't know name of cream CIPROFLOXACIN 03/20/2012 14 - Other: See Comments Comments: dizzy, loss of equilibrium METFORMIN 12/04/2016 6 - Diarrhea NEUROMUSCULAR BLOCKERS, STEROIDAL 07/11/2023 7 - Swelling Comments: Increases blood sugar NITROFURANTOIN MONOHYD/M-CRYST 08/02/2020 14 - Other: See Comments LATEX, NATURAL RUBBER 07/11/2023 2 - Rash Date Reviewed: 05/22/2024 Reviewed by: Abel Zapata MA - Fully Assessed Reason for Visit: Glucagon order [Other] Order(s):glucagon (GVOKE) 1 mg/0.2 mL injectionInject 0.2 mL subcutaneously as needed.Disp: 0.2 mLRfl: 3 Prescriptions as of 08/19/2024 - glucagon (GVOKE) 1 mg/0.2 mL injection Inject 0.2 mL subcutaneously as needed. - blood sugar diagnostic (ONETOUCH VERIO TEST STRIPS) test strip Use with blood glucose test three times a day. E11.9 INSULIN DEPENDENT - metFORMIN ER (GLUMETZA) 500 mg 24 hr tablet Take 1 tablet by mouth daily with dinner. - rosuvastatin (CRESTOR) 5 mg tablet Take one tablet TWICE weekly by mouth - metFORMIN ER (GLUCOPHAGE XR) 500 mg 24 hr tablet Take 1 tablet by mouth daily with breakfast. - levothyroxine (SYNTHROID) 25 mcg tablet Take 1 tablet by mouth daily before breakfast. - STRENSIQ 80 mg/0.8 mL soln Inject 2 mg/kg three times per week as directed. Rotate sites. 1855.28 - DEXCOM G7 SENSOR eduar CHANGE EVERY 10 DAYS - ONETOUCH VERIO FLEX METER USE DIRECTED TO TEST BLOOD SUGAR ONE TIME DAILY - famotidine (PEPCID) 40 mg tablet Take 1 tablet by mouth once daily. - hydrOXYzine HCl (ATARAX) 25 mg tablet Take 25 mg by mouth as needed for anxiety. - fluticasone (FLONASE) 50 mcg/actuation nasal spray Use 1 Sigurd in each nostril as needed for cold/allergy symptoms. - insulin lispro (HUMALOG) 100 unit/mL injection 50 units a day per insulin pump - labetalol (TRANDATE) 100 mg tablet Take 100 mg by mouth two times a day. - ONETOUCH DELICA PLUS LANCET 33 gauge USE DIRECTED TO TEST BLOOD SUGAR ONE TIME DAILY - tirzepatide (MOUNJARO) 2.5 mg/0.5 mL pen injector Inject 2.5 mg subcutaneously one time a week. Take 2.5 mg weekly subcut - Cetirizine 10 mg cap Take by mouth once daily. Does not take Cetirizine at present, while she is taking Antivert - hydrochlorothiazide 25 mg tablet Take 25 mg by mouth once daily. - mometasone (NASONEX) 50 mcg/actuation nasal spray Use 2 Sprays in the nose once daily. - meclizine 25 mg Tab Take 25 mg by mouth three times daily as needed. - Cholecalciferol, Vitamin D3, (VITAMIN D-3) 2,000 unit cap Take by mouth once daily. - Ibuprofen 200 mg cap Take by mouth. Takes up to four tablets once daily only as needed Problem List As Of Date 08/19/2024 Noted Resolved Fibromyalgia syndrome [M79.7] 03/20/2012 Loss of balance [R26.89] 03/20/2012 Prescriptions ordered this encounter Disp Refills Start End GVOKE 1 MG/0.2 ML SUBCUTANEOUS SOLUT* 0.2 * 3 08/19/2024 Route: SUBCUTANEOUS Sig: Inject 0.2 mL subcutaneously as needed. Encounter Status:Closed by IRINA MORENO on 08/19/24 Normal [facility] CT ABDOMEN AND PELVIS W CONT on 08-14-2024 CT ABDOMEN AND PELVIS W CONT CT ABDOMEN AND PELVIS W CONT CLINICAL INFORMATION: Chronic idiopathic constipation; Generalized abdominal [...] Salvatore Aguirre MD on 08/14/2024 3:35 AM Normal [facility] US RETROPERITONEAL LIMITEDon 08-14-2024 US RETROPERITONEAL LIMITED US RETROPERITONEAL LIMITED CLINICAL INFORMATION: Juvenile hypophosphatasia COMPARISON: None. FINDINGS: RIGHT KIDNEY: Length: 11.3 x 4.8 x 5.4 cm. Cortical Thickness/Echogenicity: Normal. Dilatation: None Calculus: None Mass: None Other: None LEFT KIDNEY: Length: 11.1 x 5.3 x 4.7 cm. Cortical Thickness/Echogenicity: Normal. Dilatation: None Calculus: None Mass: None Other: None IMPRESSION: Sonographically unremarkable kidneys . Finalized by Salvatore Aguirre MD on 08/14/2024 3:36 AM Normal [facility] US THYROIDon 08-14-2024 US THYROID US THYROID CLINICAL INFORMATION: Thyroid nodule. TECHNIQUE: Real time sonography of the thyroid gland performed. COMPARISON: No relevant prior studies available.. FINDINGS: Thyroid size: Normal Right thyroid lobe measures: 5.7 x 1.9 x 2.4 cm Left thyroid lobe measures: 4.5 x 1.4 x 1.8 cm Overall thyroid texture: Homogeneous Nodule # 1 Maximum size/location: 2.0 x 1.8 cm. Right mid thyroid. Composition: Mixed cystic/solid -1 Echogenicity: Hypoechoic - 2 Shape: Not taller than wide -0 Margins: Smooth - 0 Echogenic foci: None -0 Additional echogenic foci: None -0 ACR TI-RADS total points: 3 ACR TI RADS risk category: TR3 (3) ACR TI RADS Recommendation: Ultrasound follow-up 1 year Nodule # 2 Maximum size/location: 1.3 x 1.4 x 0.9 cm. Right inferior thyroid. Composition: Solid -2 Echogenicity: Hypoechoic - 2 Shape: Not taller than wide -0 Margins: Smooth - 0 Echogenic foci: None -0 Additional echogenic foci: None -0 ACR TI-RADS total points: 4 ACR TI RADS risk category: TR4 (4-6) ACR TI RADS Recommendation: Ultrasound follow-up 1 year Nodule # 3 Maximum size/location: 1.1 x 0.9 x 1.0 cm. Right inferior thyroid Composition: Mixed cystic/solid -1 Echogenicity: isoechoic - 1 Shape: Not taller than wide -0 Margins: Smooth - 0 Echogenic foci: None -0 Additional echogenic foci: None -0 ACR TI-RADS total points: 2 ACR TI RADS risk category: ACR TI RADS Recommendation: no further follow-up Nodule # 4 Maximum size/location: 1.1 x 0.9 x 0.8 cm. Left superior thyroid. Composition: Mixed cystic/solid -1 Echogenicity: isoechoic - 1 Shape: Not taller than wide -0 Margins: Smooth - 0 Echogenic foci: None -0 Additional echogenic foci: None -0 ACR TI-RADS total points: 2 ACR TI RADS risk category: TR2 (2) ACR TI RADS Recommendation: no further follow-up IMPRESSION: Multinodular gland. Larger nodules in the right thyroid warrant 1 year follow-up. ACR TI-RADS recommendations: TR5 (greater than or equal to 7 points) - FNA if greater than or equal to 1cm, follow-up ultrasound if nodule is 0.5 - 0.9 cm every year for 5 years. TR4 (4 - 6 points) - FNA if greater than or equal to 1.5 cm, follow-up ultrasound if nodule is 1 -1.4 cm at 1, 2, 3 and 5 years. TR3 (3 points) - FNA if greater than or equal to 2.5 cm, follow-up ultrasound if nodule is 1.5 -2.4 cm at 1, 3 and 5 years. TR2 (2 points) & TR1 (0 points) - No FNA or follow-up. Finalized by Salvatore Aguirre MD on 08/14/2024 3:41 AM Normal [facility] BASIC METABOLIC PANLon 08-13 Anion gap [Moles/Vol] 9 mmol/L Normal 5-15 [facility] Comment on above: Performed By: #### P INR, 31823-7 #### [facility] ([id number]) [address] [place] [address] #### HA1C, CBCA, 19981-5, 3016-3, 3024-7 #### [facility] ([id number]) [address], [address] [place] [address] Calcium [Mass/Vol] 8.9 mg/dL Normal 8.5-10.5 [facility] Comment on above: Performed By: #### P INR, 20808-5 #### [facility] ([id number]) [address] [place] [address] #### HA1C, CBCA, 83176-5, 3016-3, 3024-7 #### [facility] ([id number]) [address], [address] [place] [address] Chloride [Moles/Vol] 104 mmol/L Normal 98-109 [facility] Comment on above: Performed By: #### P INR, 85249-3 #### [facility] ([id number]) [address] [place] [address] #### HA1C, CBCA, 65162-3, 3016-3, 3024-7 #### [facility] ([id number]) [address], [address] [place] [address] CO2 [Moles/Vol] 22 mmol/L Normal 22-32 [facility] Comment on above: Performed By: #### P INR, 26692-6 #### [facility] ([id number]) [address] [place] [address] #### HA1C, CBCA, 81645-3, 3016-3, 3024-7 #### [facility] ([id number]) [address], [address] [place] [address] Creatinine [Mass/Vol] 0.81 mg/dL Normal 0.40-1.00 [facility] Comment on above: Result Comment: METH OD TRACEABLE TO IDMS STANDARD Performed By: #### P INR, 34523-3 #### [facility] ([id number]) [address] [place] [address] #### HA1C, CBCA, 75258-1, 3016-3, 3024-7 #### [facility] ([id number]) [address] [place] [address] eGFR (CKD-EPI) NON-RACE DEPENDENT >90 Normal >59 [facility] Comment on above: Result Comment: Reported eGFR is based on the CKD-EPI 2020 equation that does not use a race coefficient. Performed By: #### P INR, 89461-0 #### [facility] ([id number]) [address] [place] [address] #### HA1C, CBCA, 46919-5, 3016-3, 3024-7 #### [facility] ([id number]) [address] [place] [address] Glucose [Mass/Vol] 175 mg/dL High 65-99 [facility] Comment on above: Performed By: #### P INR, 47021-5 #### [facility] ([id number]) [address] [place] [address] #### HA1C, CBCA, 34884-0, 3016-3, 3024-7 #### [facility] ([id number]) [address], [address] [place] [address] Potassium [Moles/Vol] 3.7 mmol/L Normal 3.5-5.0 [facility] Comment on above: Performed By: #### P INR, 68582-6 #### [facility] ([id number]) [address] [place] [address] #### HA1C, CBCA, 64554-6, 3016-3, 3024-7 #### [facility] ([id number]) [address], [address] [place] [address] Sodium [Moles/Vol] 135 mmol/L Normal 134-146 [facility] Comment on above: Performed By: #### P INR, 20498-9 #### [facility] ([id number]) [address] [place] [address] #### HA1C, CBCA, 36039-2, 3016-3, 3024-7 #### [facility] ([id number]) [address], [address] [place] [address] Urea nitrogen [Mass/Vol] 13 mg/dL Normal 5-23 [facility] Comment on above: Performed By: #### P INR, 08763-1 #### [facility] ([id number]) [address] [place] [address] #### HA1C, CBCA, 21863-4, 3016-3, 3024-7 #### [facility] ([id number]) [address], [address] [place] [address] XR CHEST 2 VWSon 08-13-2024 XR CHEST 2 VWS XR CHEST 2 VWS PA and lateral chest: HISTORY: Asthma. Airway obstruction. 2 views of the chest are obtained. Cardiac and mediastinal contours are within normal limits. Lungs are clear. There is no vascular congestion, effusion, or pneumothorax. Osseous structures appear intact. IMPRESSION: No acute findings. Finalized by Edward العلي MD on 08/13/2024 1:57 PM Normal [facility] GLOOKO ON DEMANDon Ordered by an unspec ified provider. [facility] XR ABDOMEN COMP DECUB ERECTo n 07-05-2024 XR ABDOMEN COMP DECUB ERECT XR ABDOMEN COMP DECUB ERECT Abdomen: HISTORY: Abdominal pain. 4 views of the abdomen were obtained. There is moderate colonic stool. Bowel gas pattern nonspecific. Lung bases clear. IMPRESSION: Moderate colonic stool Finalized by Edward العلي MD on 07/05/2024 6:12 PM Normal [facility] CNNURSEon 06-25-2024 CNNURSE Nurse Visit (DENIT) ----- ADITIAUGUST ([id number]) 1990 F Date Time Provider Department 06/25/24 11:00 AM ROXI PALAFOX During your visit today, we recorded the following information about you: Roxi Palafox, PATRICIA 06/25/2024 12:30 PM Signed DIABETES SELF-MANAGEMENT EDUCATION AND SUPPORT Location: [place] Type of visit: Virtual (with video) individual I have communicated my name and active licensure. The patient's identity and physical location were verified at the time of this visit. Either the patient or their legal sales support representative has been informed of the risks and benefits of -- and alternatives to -- treatment through a remote evaluation and consents to proceed with the evaluation remotely. 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 Patient states he/she is located at home/work and is the [facility] for duration of this visit. Types of DSMES: Initial/Comprehensive (add to or update ADA spreadsheet) PATIENT'S MAIN CONCERN TODAY: high blood sugars last 2 weeks on Tandem T Slim pump, blood sugars are better off pump and using MDI Support person present for education today: none Cognitive ability: Alert and oriented Motivation to learn: Interested Learning barriers identified by educator: none Method of instruction: written and verbal INTERVENTIONS/TOPICS COVERED: -Diabetes Pathophysiology: diabetes disease process and role of insulin in the body -Monitoring: CGM basics AND daily use, CGM type: Dexcom G7, [id number]-yl-pjzpl (TIR), and using a home glucose monitor TIR over last 14 days from Dexcom CGM per patient: Very high: 2% High 22% 76% time in range 0% low/very low -Healthy Eating: impact of carbs on BG, Plate Method, basic carb counting, foods with carbs, portion sizes, fiber, reading food labels, recommendation for 30-60 g carb per meal, eating out, and carb counting tools (books, Internet, smartphone apps) Importance of being accurate when entering carbs into pump. Food recall was done and patient may be underestimating some meals. Patient admits to not always entering carbs for snacks or some meals. Suggested using [employer] aditya for help, especially when eating out. Patient states she has pizza and was advised to add a veggie starter prior to eating high carb foods, consider using an extended bolus feature, always pair protein and/or healthy fat with carbs and try eating veggies and protein first and carbs last to see if that prevents blood sugar spikes -Medications: medication safety/timing, insulin storage, site selection/rotation, reviewed home DM meds, prebolusing, and insulin pump instruction: pump requirements of user, insulin pump types/pros/cons, infusion set types, infusion set rotation, extended boluses, and insulin pump terminology: basal, bolus, sensitivity/correction factor, carb ratio, BG target, and eqluzpb-qp-syrmv/duration -Physical Activity: benefits of exercise, impact of exercise on BG, and types of exercise -Acute Complications: hypoglycemia s/sx/tx and hyperglycemia s/sx/tx -Chronic Complications: importance of BG control to reduce risks -Healthy Coping and Support: impact of stress on BG, stress management techniques, and benefits of a support system, types of support (ex:family, friends, support groups, diabetes groups on social media) DIABETES ASSESSMENT: Referring Physician: Irina Moreno Previous Diabetes Education? No What are you hoping to gain from this visit? Not sure In your words, what is diabetes? asked/not answered What concerns you about having diabetes? asked/not answered Diabetes History: Type of Diabetes: Type 2 What year were you diagnosed? asked/not answered - been on Tandem T slim pump since 2020 Does anyone in your family have diabetes? yes mother How do you learn best? listening, observing , reading, and doing Demographics: Highest level of education: asked/not answered Race/Ethnic Origin: White/ Does your culture or confucianism require any of the following: No cultural/adventist practices affecting DM Do you have problems with: No difficulty seeing/hearing/reading/wr iting/speaking Occupation: not currently working Work hours: n/A Support System: How often does someone help you read hospital materials? never How often does someone help you read your pill bottles? never How often does someone have to help you take care of your diabetes? 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 asked/not answered Do any of the following things get in the way of managing your diabetes? Stress Health History: Most recent eye exam: consult ordered by provider, needs updated eye exam Most recent dental exam:Asked/not answere (more content not included)... Normal [facility] Geovanni 06-17-2024 MARCELO Telephone (MYRON) ----- ADITI ([id number]) 1990 F Date Time Provider Department 06/17/24 ROXI PALAFOX During your visit today, we recorded the following information about you: Roxi Palafox, RN 06/17/2024 3:19 PM Signed NO SHOW Virtual diabetes education visit 06/17/24 At 2 pm. fromAtoB message sent to pt to reschedule Allergies As of Date: 06/17/2024 Noted Allergy Reaction HYDROCORTISONE 03/20/2012 14 - Other: See Comments Comments: steroid cream she placed in ear, caused entire face to swell, doesn't know name of cream CIPROFLOXACIN 03/20/2012 14 - Other: See Comments Comments: dizzy, loss of equilibrium METFORMIN 12/04/2016 6 - Diarrhea NEUROMUSCULAR BLOCKERS, STEROIDAL 07/11/2023 7 - Swelling Comments: Increases blood sugar NITROFURANTOIN MONOHYD/M-CRYST 08/02/2020 14 - Other: See Comments LATEX, NATURAL RUBBER 07/11/2023 2 - Rash Date Reviewed: 05/22/2024 Reviewed by: Abel Zapata MA - Fully Assessed Reason for Visit: No Show [1558] Prescriptions as of 06/17/2024 - STRENSIQ 80 mg/0.8 mL soln Inject 2 mg/kg three times per week as directed. Rotate sites. 1855.28 - DEXCOM G7 SENSOR eduar CHANGE EVERY 10 DAYS - PrecogUCH VERIO FLEX METER USE DIRECTED TO TEST BLOOD SUGAR ONE TIME DAILY - famotidine (PEPCID) 40 mg tablet Take 1 tablet by mouth once daily. - hydrOXYzine HCl (ATARAX) 25 mg tablet Take 25 mg by mouth as needed for anxiety. - fluticasone (FLONASE) 50 mcg/actuation nasal spray Use 1 Sigurd in each nostril as needed for cold/allergy symptoms. - insulin lispro (HUMALOG) 100 unit/mL injection 50 units a day per insulin pump - labetalol (TRANDATE) 100 mg tablet Take 100 mg by mouth two times a day. - ONETOUCH DELICA PLUS LANCET 33 gauge USE DIRECTED TO TEST BLOOD SUGAR ONE TIME DAILY - tirzepatide (MOUNJARO) 2.5 mg/0.5 mL pen injector Inject 2.5 mg subcutaneously one time a week. Take 2.5 mg weekly subcut - Cetirizine 10 mg cap Take by mouth once daily. Does not take Cetirizine at present, while she is taking Antivert - levothyroxine (SYNTHROID) 25 mcg tablet Take 25 mcg by mouth daily before breakfast. - hydrochlorothiazide 25 mg tablet Take 25 mg by mouth once daily. - metFORMIN ER 500 mg 24 hr tablet Take 500 mg by mouth daily with breakfast. - mometasone (NASONEX) 50 mcg/actuation nasal spray Use 2 Sprays in the nose once daily. - meclizine 25 mg Tab Take 25 mg by mouth three times daily as needed. - Cholecalciferol, Vitamin D3, (VITAMIN D-3) 2,000 unit cap Take by mouth once daily. - Ibuprofen 200 mg cap Take by mouth. Takes up to four tablets once daily only as needed Problem List As Of Date 06/17/2024 Noted Resolved Fibromyalgia syndrome [M79.7] 03/20/2012 Loss of balance [R26.89] 03/20/2012 Encounter Status:Closed by ROXI PALAFOX on 06/17/24 Normal [facility] Urinalysis macro (dipstick) panel (U)Ordered By: Tiny Joyner on 06-11-2024 Bilirubin, UA Negative Negative - 4(70) +++ mg/dL [facility] Blood, UA Negative Negative - 50 Yo/mcL [facility] Clarity, UA Clear [facility] Color, UA Yellow [facility] Glucose, UA Positive Negative - 2000(110) ++++ mg/dL [facility] Interpretation and review of laboratory results Abnormal [facility] Ketones, UA Negative Negative - 160(16) ++++ mg/dL [facility] Leukocytes, UA Trace Negative - 500+++ Laura/mcL [facility] Nitrite, UA Negative Negative - Positive [facility] pH, UA 6.5 5 - 9 [facility] Protein, UA Negative Negative - 2000(20) ++++ mg/dL [facility] Spec Grav, UA 1.03 1 - 1.03 [facility] Urobilinogen, UA 0.2 0.2 - 12 mg/dL [facility] RAPID STREP SCR NURSINGon S. pyogenes Ag EIA Ql (Throat) Negative Normal NEG [facility] Comment on above: Performed By: #### P INR, 07297-8 #### [facility] ([id number]) [address] [place] [address], [place] [address] #### HA1C, CBCA, 58040-4, 3016-3, 3024-7 #### [facility] ([id number]) [address], [address] [place] [address] Geovanni 05-23-2024 MARCELO Telephone (ENCAMN) ----- ADITI,AUGUST ([id number]) 1990 F Date Time Provider Department 05/23/24 IRINA MORENO During your visit today, we recorded the following information about you: Irina Moreno MD 05/23/2024 12:12 PM Signed Called [facility] to update rx so that it is from [facility] now and for full therapeutic dose. 84 kg updated weight. Faxing forms now too to [facility] per request. Ro Peng 05/23/2024 4:04 PM Signed Forms (OV notes) sent successfully to [facility] at [phone]. Ro Peng [employer] [facility] [place] [facility] Allergies As of Date: 05/23/2024 Noted Allergy Reaction HYDROCORTISONE 03/20/2012 14 - Other: See Comments Comments: steroid cream she placed in ear, caused entire face to swell, doesn't know name of cream CIPROFLOXACIN 03/20/2012 14 - Other: See Comments Comments: dizzy, loss of equilibrium METFORMIN 12/04/2016 6 - Diarrhea NEUROMUSCULAR BLOCKERS, STEROIDAL 07/11/2023 7 - Swelling Comments: Increases blood sugar NITROFURANTOIN MONOHYD/M-CRYST 08/02/2020 14 - Other: See Comments LATEX, NATURAL RUBBER 07/11/2023 2 - Rash Date Reviewed: 05/22/2024 Reviewed by: Abel Zapata MA - Fully Assessed Prescriptions as of 05/23/2024 - STRENSIQ 80 mg/0.8 mL soln Inject 2 mg/kg three times per week as directed. Rotate sites. 1855.28 - DEXCOM G7 SENSOR eduar CHANGE EVERY 10 DAYS - PixelEXX SystemsTOUCH VERIO FLEX METER USE DIRECTED TO TEST BLOOD SUGAR ONE TIME DAILY - famotidine (PEPCID) 40 mg tablet Take 1 tablet by mouth once daily. - hydrOXYzine HCl (ATARAX) 25 mg tablet Take 25 mg by mouth as needed for anxiety. - fluticasone (FLONASE) 50 mcg/actuation nasal spray Use 1 Sigurd in each nostril as needed for cold/allergy symptoms. - insulin lispro (HUMALOG) 100 unit/mL injection 50 units a day per insulin pump - labetalol (TRANDATE) 100 mg tablet Take 100 mg by mouth two times a day. - ONETOUCH DELICA PLUS LANCET 33 gauge USE DIRECTED TO TEST BLOOD SUGAR ONE TIME DAILY - tirzepatide (MOUNJARO) 2.5 mg/0.5 mL pen injector Inject 2.5 mg subcutaneously one time a week. Take 2.5 mg weekly subcut - Cetirizine 10 mg cap Take by mouth once daily. Does not take Cetirizine at present, while she is taking Antivert - levothyroxine (SYNTHROID) 25 mcg tablet Take 25 mcg by mouth daily before breakfast. - hydrochlorothiazide 25 mg tablet Take 25 mg by mouth once daily. - metFORMIN ER 500 mg 24 hr tablet Take 500 mg by mouth daily with breakfast. - mometasone (NASONEX) 50 mcg/actuation nasal spray Use 2 Sprays in the nose once daily. - meclizine 25 mg Tab Take 25 mg by mouth three times daily as needed. - Cholecalciferol, Vitamin D3, (VITAMIN D-3) 2,000 unit cap Take by mouth once daily. - Ibuprofen 200 mg cap Take by mouth. Takes up to four tablets once daily only as needed Problem List As Of Date 05/23/2024 Noted Resolved Fibromyalgia syndrome [M79.7] 03/20/2012 Loss of balance [R26.89] 03/20/2012 Encounter Status:Closed by IRINA MORENO on 05/23/24 Normal [facility] C peptide Fany-Mike 05-22 C peptide [Mass/Vol] 4.5 ng/mL High 1.1-4.4 [facility] Comment on above: Order Comment: Speci men Type: BLOOD SPECIMENOrdering Facility: [facility] Address: [address] [place] [id number] Performed By: #### 1 986-9 ####[facility] LABCLIA [id number] [facility] [id number] [id number] [place] C peptide [Mass/Vol]on 05-22 Interpretation and review of laboratory results Abnormal [facility] C-PEPTIDE BLDon 05-22-2024 C peptide [Mass/Vol] 4.5 ng/mL High 1.1 - 4.4 ng/mL [facility] CNCOon 05-22-2024 CNCO Letter Text Normal [facility] CNOVon 05-22-2024 CNOV Office Visit (ENCAMN ) ----- ADITIAUGUST ([id number]) 1990 F Date Time Provider Department 05/22/24 12:00 PM IRINA MORENO During your visit today, we recorded the following information about you: Pulse Blood pressure Weight Last Period 92/minute 126/82 83.9 kg 05/09/24 Abel Zapata MA 05/22/2024 12:17 PM Signed Thank you for choosing the [facility] Department of Endocrinology, Diabetes and Metabolism. Did you know that you need to call 48 hours in advance of your scheduled visit, if you are unable to make your appointment? [facility] [place] thanks you for your commitment, because patients not showing to their appointment results in a lost opportunity for patients to receive world class health care at the [facility]. To Cancel an appointment, please choose one of the following: - Call the Appointment Call Center at [phone] - From fromAtoB, Go to Appointments - Cancel Appts If cancelling, consider your need to reschedule to prevent further delays in your care. To Schedule an appointment, please choose one of the following: - Call the Appointment Call Center at [phone] - From fromAtoB, Go to Appointments - Request an Appt Irina Moreno MD 05/22/2024 4:15 PM Addendum Endocrine consult note Ms. Dunn is a 34 year old female here for evaluation, management, and treatment of the following issues: juvenile onset onset hypophosphatasia, type 2 diabetes, and PCOS. 04/21/2024 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 On treatment but subtherapeutic dose. Diagnosed after having low alk phos levels. Patient has generalized pain, mind fogginess, and severe dental issues. On treatment. No longer need a cane. Diagnosed locally by Dr Lennon with genetic testing. Patient on treatment but taking medication every other week since she reports injection site reactions. Genetic testing below. Patient has son who was born in 2020 and also has juvenile onset hypophosphotasia. Ongoing sxs on lower dose of asfotase gwendolyn. Open to increasing dose. Otherwise: On insulin pump for type 2 DM. On t slim A1c 7% today Labile numbers. Carb counting. I made changes to pump but it worsened control. See below. Frustrated. Basal rates: MN - MN: 0.8 units/hr 1:40 ISF 1:12 carb ratio Target 110 A1c: 7% Lives with daughter born in 2018, son born in 2020. Min exercise. Son with HPP too. Also has PCOS. Irregular periods. Has hirsutism, acne. 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 Unable to lose weight. Never tried GLP-1 drugs; not on metformin. Otherwise, no other acute complaints or concerns today. REVIEW OF SYSTEMS: Answers submitted by the patient for this visit: Core Review of Systems (Submitted on 05/21/2024) Fever : No Night sweats: No Recent unintentional weight change: No Nasal Congestion: Yes Hearing Loss: Yes Vision Disturbance: No A cough: Yes Difficulty Breathing?: No Chest pain: No Irregular heartbeat: No Leg Swelling: No Nausea: No Diarrhea: No Black tarry stools: No Difficulty Urinating?: No Awaken at Night More Than Once to Urinate?: No Muscle aches: Yes Leg or Foot Discomfort at Night?: No A rash: No Dizziness: Yes Headaches: No Memory Loss: Yes Seizures: No See HPI. Reviewed remaining ROS and negative x 10 systems PHYSICAL EXAM: BP 126/82 Pulse 92 Wt 83.9 kg (184 lb 15.5 oz) LMP 05/09/2024 There is no height or weight on file to calculate BMI. General: WNWD, NAD Eyes: conjunctivae are pink, no scleral icterus Neck: The thyroid is nonenlarged, no nodule, nontender Lymphatic: no cervical or supraclavicular adenopathy Cardiovascular: regular rate, no murmur Respiratory: full sounds bilaterally with normal expansion Gastrointestinal: deferred Skin: no lipohypertrophy at injection sites, no striae, dorsocervical fat pads, no acanthosis Neurologic: gait intact. DTR?s normal with normal recovery phase Pyschiatric: mood and affect are normal Foot exam: negative for sores, ulcers, lesions. Monofilament intact bilaterally. DATA REVIEW: 01/14/2024 Total testosterone: 48 TSH: 0.81 Free T4; 1.07 (0.61 to 1.6) FSH: 10.1 LH: 8.6 A1c; : Na; 137 10/19/2023 Impression/plan: 34 year old female with HPP, type 2 diabetes, PCOS, obesity HPP Start giving all doses of asfotase gwendolyn - only taking 50% Long discussion re; pathophysiology, etc of disesae Suspect energy, arthritis, mind fogginess will improve See eye doctor for blurry vision to exclude calcifications. Order provided. Will contact [facility] to change rx and put in my name. Get renal ultrasound Check labs today 2. Type 2 diabetes Ensure type 2 diabetes with labs See bread wrapper and educator Spikes with meals. Bolus 10 min prior eating. Add keely. Jer tried previous (more content not included)... Normal [facility] DHEA-S BLDon 05-22-2024 DHEA-S [Mass/Vol] 60.7 ug/dL Low 60.9-337.[address] [facility] Comment on above: Order Comment: Speci men Type: BLOOD SPECIMENOrdering Facility: [facility] Address: [address] [place] [address] Result Comment: Refe rence ranges are age and gender specific. For additional information, reference range tables can be found in the laboratory test directory. The normal values are based on the following source: Dehydroepiandrosterone sulfate (DHEA S) [package insert V 17.0 Salvadorean]. [facility], [place], [place]: December 2012. Performed By: #### L IPNF, 02566-4, DHEAS, 3016-3 ####[facility] LABCLIA [id number] [place] [address] [place] GAD65 Ab Ser-aCncon 05-22-19 25 Glutamate decarboxylase 65 Ab Qn (S) <5.0 Normal <=5.0 [facility] Comment on above: Order Comment: Lorin khoury Type: BLOOD SPECIMENOrdering Facility: [facility] Address: [address] [place] [address] Result Comment: Anti -glutamic acid decarboxylase antibody (GAD65) test usually in conjunction with another test such as IA-2 antibody is used as an aid in establishing the autoimmune nature of previously-diagnosed type I diabetes mellitus or in predicting of progression to type I diabetes mellitus in patients with certain autoimmune diseases including autoimmune gastritis among others. It is also used as an aid in diagnosis of stiff person syndrome and certain autoimmune nervous system diseases. Clinical correlation is required. Performed By: #### 1 3926-1 ####[facility] LABIA [id number] [place] [address] [place] GLOOKO ON DEMANDon Ordered by an unspec ified provider. [facility] Glutamate decarboxylase 65 A b Qn (S)on 05-22-2024 GLUTAMIC ACID DECARBOXYLAS AB QUALITATIVE Negative Normal Negative [facility] Comment on above: Order Comment: Lorin khoury Type: BLOOD SPECIMENOrdering Facility: [facility] Address: [address] [place] [address] Performed By: #### 1 3926-1 ####[facility] [id number] [place] [address] [place] HEMOGLOBIN A1C (POC)on 05-22 HbA1c (Bld) [Mass fraction] 7.0 % Abnormal 4.3 - 5.6 % [facility] Comment on above: Location:[facility] tahmina, [address] [place] [address], [facility] Point of care (POC) Hemoglobin A1c (HGBA1C) [...] specific diabetes management situations: The POC device sql programmer analyst provides a normal range of 4.2% to 6.5% for the HGBA1C POC test. However, the [place] Diabetes Association guidelines indicate that patients with [...] anemia) that alter red blood cell lifespan. Interpretation and review of laboratory results Abnormal [facility] ISLET CELL ABon 05-22-2024 ISLET CELL AB <1:4 Normal <1:4 [facility] Comment on above: Order Comment: Speci men Type: BLOOD SPECIMENOrdering Facility: [facility] Address: [address] [place] [address] Result Comment: INTE RPRETIVE INFORMATION: Islet Cell Ab, IgG Islet cell antibodies (ICAs) are associated with type 1 diabetes (TID), an autoimmune endocrine disorder. ICAs may be present years before the onset of clinical symptoms. To calculate Juvenile Diabetes Foundation (JDF) units: multiply the titer x 5 (1:8 8 x 5 = 40 JDF Units). This test was developed and its performance characteristics determined by [email or web address]. It has not been cleared or approved by the US Food and Drug Administration. This test was performed in a CLIA certified laboratory and is intended for clinical purposes. Performed By: [facility] [address] [place] [address] Benefits Specialist: Solo Pascual MD, PhD CLIA Number: [id number] Performed By: #### ROXY BROOKS ####[facility] PFIA [id number] [place] [address] LIPID PANEL, NONFASTINGon Cholesterol [Mass/Vol] 257 mg/dL High <200 [facility] Comment on above: Order Comment: Speci men Type: BLOOD SPECIMENOrdering Facility: [facility] Address: [address] [place] [address] Result Comment: <200 mg/dL, Desirable 200-239 mg/dL, Borderline high >239 mg/dL, High Performed By: #### L IPNF, 84479-4, DHEAS, 6-3 ####[facility] LABCLIA [id number] [place] [address] [place] HDL CHOLESTEROL, NF 47 mg/dL Normal >39 [facility] Comment on above: Order Comment: Speci men Type: BLOOD SPECIMENOrdering Facility: [facility] Address: [address] [place] [address] Result Comment: 40-5 9 mg/dL, Acceptable >59 mg/dL, High: Negative risk factor for coronary heart disease <40 mg/dL, Low: Positive risk factor for coronary heart disease Performed By: #### L IPNF, 03588-0, DHEAS, 3016-3 ####[facility] LABCLIA [id number] [place] [address] [place] LDL CHOLESTEROL, NF 175 mg/dL High <100 [facility] Comment on above: Order Comment: Speci men Type: BLOOD SPECIMENOrdering Facility: [facility] Address: [address] [place] [address] Result Comment: <100 mg/dL, Optimal 100-129 mg/dL, Near optimal/above optimal 130-159 mg/dL, Borderline high 160-189 mg/dL, High >189 mg/dL, Very high Secondary prevention optimal LDL Cholesterol levels are recommended to be < 70 mg/dL Performed By: #### L IPNF, 83187-5, DHEAS, 3016-3 ####[facility] LABCLIA [id number] [place] [id number] [place] LDL/HDL RATIO, NF 3.72 mg/dL High <2.[address] [facility] Comment on above: Order Comment: Speci men Type: BLOOD SPECIMENOrdering Facility: [facility] Address: [address] [place] [address] Result Comment: Juan Carlos ba: 1. National Cholesterol Education Program ATP III Guideline At-A-Glance Quick Desk Reference: National Heart, Lung, and Blood [place]. National Institutes of Health. 2001: NIH Publication No. 01-3305. 2. An International Atherosclerosis Society position paper: global recommendations for the management of dyslipidemia: executive summary, Atherosclerosis. 2014: 232(2):410-413. Performed By: #### L IPNF, 42953-0, DHEAS, 6-3 ####[facility] LABCLIA [id number] [place] [address] [place] NON HDL CHOL, NF 210 mg/dL High <130 [facility] Comment on above: Order Comment: Speci men Type: BLOOD SPECIMENOrdering Facility: [facility] Address: [address] [place] [address] Result Comment: <130 mg/dL, Optimal 130-159 mg/dL, Near optimal/above optimal 160-189 mg/dL, Borderline high 190-219 mg/dL, High >219 mg/dL, Very high Secondary prevention optimal non HDL Cholesterol levels are recommended to be <100 mg/dL Performed By: #### L IPNF, 22801-2, DHEAS, 6-3 ####[facility] LABCLIA [id number] [place] [address] [place] T CHOL/HDL RATIO NF 5.47 mg/dL High <5.10 [facility] Comment on above: Order Comment: Speci men Type: BLOOD SPECIMENOrdering Facility: [facility] Address: [address] [place] [address] Performed By: #### L IPNF, 97777-7, DHEAS, 3016-3 ####[facility] LABCLIA [id number] [place] [address] [place] TRIGLYCERIDES, NF 174 mg/dL High <[address] [facility] Comment on above: Order Comment: Speci men Type: BLOOD SPECIMENOrdering Facility: [facility] Address: [address] [place] [address] Result Comment: <150 mg/dL, Normal 150-199 mg/dL, Borderline high 200-499 mg/dL, High >499 mg/dL, Very high Performed By: #### L IPNF, 76899-0, DHEAS, 3016-3 ####[facility] LABCLIA [id number] [place] [address] [place] VLDL CHOLESTEROL, NF 35 mg/dL High <30 [facility] Comment on above: Order Comment: Speci men Type: BLOOD SPECIMENOrdering Facility: [facility] Address: [address] [place] [address] Performed By: #### L IPNF, 30063-0, DHEAS, 3016-3 ####[facility] LABCLIA [id number] [place] [address] [place] MAGNESIUMon 05-22-2024 Magnesium [Mass/Vol] 2.2 mg/dL 1.7 - 2.3 mg/dL [facility] Magnesium SerPl-mCncon 05-22 Magnesium [Mass/Vol] 2.2 mg/dL Normal 1.7-2.3 [facility] Comment on above: Order Comment: Speci men Type: BLOOD SPECIMENOrdering Facility: [facility] Address: [address] [place] [address] Performed By: #### 1 9123-9 ####[facility] LABCLIA [id number] [place] [address] [place] Magnesium [Mass/Vol]on 05-22 Interpretation and review of laboratory results Normal [facility] Renal function 2000 panelon 05-22-2024 Albumin [Mass/Vol] 4.6 g/dL Normal 3.9-4.9 [facility] Comment on above: Order Comment: Speci men Type: BLOOD SPECIMENOrdering Facility: [facility] Address: [address] [place] [id number] Performed By: #### L IPNF, 73407-9, DHEAS, 3016-3 ####[facility] LABCLIA [id number] [address] [address] [place] Anion gap [Moles/Vol] 12 mmol/L Normal 8-15 [facility] Comment on above: Order Comment: Speci men Type: BLOOD SPECIMENOrdering Facility: [facility] Address: [address] [place], [place] [address] Performed By: #### L IPNF, 47961-6, DHEAS, 6-3 ####[facility] LABCLIA [id number] [address] [address] [place] Calcium [Mass/Vol] 9.8 mg/dL Normal 8.5-10.2 [facility] Comment on above: Order Comment: Speci men Type: BLOOD SPECIMENOrdering Facility: [facility] Address: [address] [place], [place] [address] Performed By: #### L IPNF, 63407-7, DHEAS, 6-3 ####[facility] LABCLIA [id number] [place] [address] [place] Chloride [Moles/Vol] 102 mmol/L Normal 98-107 [facility] Comment on above: Order Comment: Speci men Type: BLOOD SPECIMENOrdering Facility: [facility] Address: [address] [place], [place] [address] Performed By: #### L IPNF, 94068-8, DHEAS, 3016-3 ####[facility] LABCLIA [id number] [address] [address] [place] CO2 [Moles/Vol] 25 mmol/L Normal 22-30 [facility] Comment on above: Order Comment: Speci men Type: BLOOD SPECIMENOrdering Facility: [facility] Address: [address] [place] [address] Performed By: #### L IPNF, 76243-9, DHEAS, 3016-3 ####[facility] LABIA [id number] [place] [address] [place] Creatinine [Mass/Vol] 0.71 mg/dL Normal 0.58-0.96 [facility] Comment on above: Order Comment: Speci men Type: BLOOD SPECIMENOrdering Facility: [facility] Address: [address] [place] [address] Performed By: #### L IPNF, 32985-4, DHEAS, 3016-3 ####[facility] LABIA [id number] [place] [address] [place] Creatinine and Glomerular filtration rate.predicted panel (S/P/Bld) 114 mL/min/1.73m??? Normal >=60 [facility] Comment on above: Order Comment: Speci men Type: BLOOD SPECIMENOrdering Facility: [facility] Address: [address] [place] [address] Result Comment: Ester mated Glomerular Filtration Rate (eGFR) is calculated using the 2020 CKD-EPI creatinine equation. This equation utilizes serum creatinine, sex, and age as parameters. The creatinine assay has traceable calibration to isotope dilution-mass spectrometry. Refer to KDIGO guidelines for clinical interpretation. In patients with unstable renal function, e.g. those with acute kidney injury, the eGFR may not accurately reflect actual GFR. Performed By: #### L IPNF, 73351-1, DHEAS, 6-3 ####[facility] LABIA [id number] [place] [address] [place] Glucose [Mass/Vol] 139 mg/dL High 74-99 [facility] Comment on above: Order Comment: Speci men Type: BLOOD SPECIMENOrdering Facility: [facility] Address: [address] [place] [address] Result Comment: The [place] Diabetes Association (ADA) provides guidance for cutoff values for fasting glucose and random glucose. The ADA defines fasting as no caloric intake for at least 8 hours. Fasting plasma glucose results between 100 to 125 mg/dL indicate increased risk for diabetes (prediabetes). Fasting plasma glucose results greater than or equal to 126 mg/dL meet the criteria for diagnosis of diabetes. In the absence of unequivocal hyperglycemia, results should be confirmed by repeat testing. In a patient with classic symptoms of hyperglycemia or hyperglycemic crisis, random plasma glucose results greater than or equal to 200 mg/dL meet the criteria for diagnosis of diabetes. Reference: Standards of Medical Care in Diabetes 2016, [place] Diabetes Association. Diabetes Care. 2016.39(Suppl 1). Performed By: #### L IPNF, 58695-0, DHEAS, 3016-3 ####[facility] LABIA [id number] [place] [address] [place] Phosphate [Mass/Vol] 3.8 mg/dL Normal 2.7-4.8 [facility] Comment on above: Order Comment: Speci men Type: BLOOD SPECIMENOrdering Facility: [facility] Address: [address] [place] [address] Performed By: #### L IPNF, 13283-6, DHEAS, 3016-3 ####[facility] LABIA [id number] [place] [address] [place] Potassium [Moles/Vol] 4.3 mmol/L Normal 3.7-5.1 [facility] Comment on above: Order Comment: Speci men Type: BLOOD SPECIMENOrdering Facility: [facility] Address: [address] [place] [address] Performed By: #### L IPNF, 20608-3, DHEAS, 3016-3 ####[facility] LABIA [id number] [place] [address] [place] Sodium [Moles/Vol] 139 mmol/L Normal 136-144 [facility] Comment on above: Order Comment: Speci men Type: BLOOD SPECIMENOrdering Facility: [facility] Address: [address] [place] [address] Performed By: #### L IPNF, 26834-9, DHEAS, 3016-3 ####[facility] LABCLIA [id number] [address] [address] [place] Urea nitrogen [Mass/Vol] 12 mg/dL Normal 7-21 [facility] Comment on above: Order Comment: Speci men Type: BLOOD SPECIMENOrdering Facility: [facility] Address: [address] [place] [address] Performed By: #### L IPNF, 46066-6, DHEAS, 3016-3 ####[facility] LABCLIA [id number] [address] [address] [place] TESTOSTERONE, BIOAVAILABLE A ND TOTAL BY MS (ADULT FEMALES, CHILDREN, OR INDIVIDUALS ON TESTOSTERONE-SUPPRESSING THERAPY)on 05-22-2024 SEX HORMONE BIND GLB 30 nmol/L Normal 25-122 [facility] Comment on above: Order Comment: Speci men Type: BLOOD SPECIMENOrdering Facility: [facility] Address: [address] [place] [address] Result Comment: REFE RENCE INTERVAL: Sex Hormone Binding Globulin Access complete set of age- and/or gender-specific reference intervals for this test in the [facility] Test Directory ([facility]AL [facility]). Performed By: #### I SLET, BTSTFC ####[facility]OR[facility]IESCLIA [id number] [place] [address] TESTO BIOAVAILABLE 18.2 ng/dL Normal 4.1-25.5 [facility] Comment on above: Order Comment: Speci men Type: BLOOD SPECIMENOrdering Facility: [facility] Address: [address] [place] [address] Result Comment: REFE RENCE INTERVAL: Testosterone, Bioavailable by Nylon Machine Operator Females: Postmenopausal: 1.5 - 9.4 ng/dL INTERPRETIVE INFORMATION: Testosterone, Bioavailable by Nylon Machine Operator Bioavailable testosterone concentration is calculated using total testosterone (measured by mass spectrometry) and the binding constant of testosterone and sex hormone-binding globulin (SHBG) and/or albumin. For individuals on testosterone-suppressing hormone therapies (e.g., antiandrogens or estrogens), refer to cisgender female reference intervals. For a complete set of all established reference intervals, refer to orderTalk/Tests/Pub/[id number]. Performed By: #### ROXY BROOKS ####[facility]ORATORIESIA [id number] [place] [address] TESTOSTERONE FREE 6.4 pg/mL Normal 1.3-9.[address] [facility] Comment on above: Order Comment: Speci men Type: BLOOD SPECIMENOrdering Facility: [facility] Address: [address] [place] [address] Result Comment: REFE RENCE INTERVAL: Testosterone, Free by Nylon Machine Operator Females Postmenopausal: 0.6 - 3.8 pg/mL INTERPRETIVE INFORMATION: Testosterone, Free by Nylon Machine Operator Free testosterone concentration is calculated using total testosterone (measured by mass spectrometry) and the binding constant of testosterone and sex hormone-binding globulin (SHBG). For individuals on testosterone-suppressing hormone therapies (e.g., antiandrogens or estrogens), refer to cisgender female reference intervals. For a complete set of all established reference intervals, refer to orderTalk/Tests/Pub/[id number]. This test was developed and its performance characteristics determined by [facility]. It has not been cleared or approved by the US Food and Drug Administration. This test was performed in a CLIA certified laboratory and is intended for clinical purposes. Performed By: [facility] [address] [place] [address] Benefits Specialist: Solo Pascual MD, PhD CLIA Number: [id number] Performed By: #### ROXY BROOKS ####[facility] LABORATORIESIA [id number] [place] [address] TESTOSTERONE TOTAL 37 ng/dL Normal 9-55 [facility] Comment on above: Order Comment: Speci men Type: BLOOD SPECIMENOrdering Facility: [facility] Address: [address] [place] [address] Result Comment: REFE RENCE INTERVAL: Testosterone by Nylon Machine Operator Females Premenopausal 9-55 ng/dL Postmenopausal 5-32 ng/dL INTERPRETIVE INFORMATION: Testosterone by Nylon Machine Operator Free or bioavailable testosterone measurements may provide supportive information. For individuals on testosterone-suppressing hormone therapies (e.g., antiandrogens or estrogens), refer to cisgender female reference intervals. For a complete set of all established reference intervals, refer to ltd.GENERAL MEDICAL MERATE/Tests/Pub/[id number]. This test was developed and its performance characteristics determined by [facility]. It has not been cleared or approved by the US Food and Drug Administration. This test was performed in a CLIA certified laboratory and is intended for clinical purposes. Performed By: #### I SLET, BTSTFC ####[facility] LABOR[facility]IESCLIA [id number] [place] [address] TSH SerPl-aCncon 05-22-2024 TSH Qn 0.719 m[IU]/L Normal 0.270-4.200 [facility] Comment on above: Order Comment: Speci men Type: BLOOD SPECIMENOrdering Facility: [facility] Address: [address] [place] [address] Result Comment: If t he patient is , TSH reference range varies by gestational period: First Trimester (weeks 9-12): 0.180-2.990 mIU/L Second Trimester: 0.110-3.980 mIU/L Third Trimester: 0.480-4.710 mIU/L Darshan Husain, et al. A Practical Approach for the Verifications and Determination of Site- and Trimester-Specific Reference Intervals for Thyroid Function tests in . Thyroid, 2019:29:3:412-420. Lalito Velez, et al. 2017 Guidelines of the [place] Thyroid Association for the Diagnosis and Management of Thyroid Disease during and the . Thyroid, 2017:27:3:315-389. Performed By: #### L IPNF, 41162-8, DHEAS, 3016-3 ####[facility] LABCLIA [id number] [facility] [id number] [place] [address] [place] XR CHEST 1 VWon 03-13-2024 XR CHEST 1 VW XR CHEST 1 VW Single view chest History: Difficulty breathing, shortness of breath Comparison: 03/02/2023 Impression: No acute pulmonary process. No pneumothorax or pleural effusion. Nonenlarged heart. Finalized by Marvin Garcia MD on 03/13/2024 12:53 PM Normal [facility] POCT Hemoglobin A1con 2023 HbA1c (Bld) [Mass fraction] 6.6 % 4 - 7 % [facility] Njuice [facility] Office Visiton 01-31-2024 Follow-up visit [id number] Aida Dunn 1990 F Date Provider Department Center 01/31/2024 Khris-FLEXFABIOLA KEARNS [facility] CARD [place] [facility] No family history on file Level of Service:49120 HI OFFICE/OUTPATIENT ESTABLISHED LOW MDM 20 MIN Reason for Visit and Comments: Follow-up [357708] Normal [facility] Glucose Glucometer (BldC) [M ass/Vol]on 01-12-2024 Glucose [Mass/Vol] 373 mg/dL High 65-[address] [facility] Glucose [Mass/Vol] 380 mg/dL High 65-99 [facility] IGP,APTIMA HPV,AGE GDLNon AGE GDLN ACOG TESTING Note . [facility] Comment on above: TESTS RESULT FLAG UN ITS REF RANGE LAB Clinician Provided Cytology Information Source.............Cervix;Endocervix No. of containers..01 ThinPrep Vial Age Algo ACOG Lizbet... FLAG LEGEND: L-Low Normal,H-High Normal,LL-Alert Low,HH-Alert High <-Panic Low,>-Panic High,A-Abnormal,AA-Critical Abnormal Performed at: 01 =G [address] [place] [address] Celine Jerez MD, HPV APTIMA Negative Negative [facility] Comment on above: This nucleic acid am plification test detects fourteen high- risk HPV types (16,18,31,33,35,39,45,51,52,56,58,59,66,68) without differentiation. Performed at: =[facility], [place] [id number] Station Jailer: Celine Jerez MD, Phone: [phone] Performed at: [facility] [address] [place] [id number] Station Jailer: Regan Sandhu MD, Phone: [phone] IGP, APTIMA HPV, RFX 16/18,45 Note . [facility] Comment on above: TESTS RESULT FLAG UN ITS REF RANGE LAB DIAGNOSIS: 02 NEGATIVE FOR INTRAEPITHELIAL LESION OR MALIGNANCY. Specimen adequacy: 02 Satisfactory for evaluation. Endocervical and/or squamous metaplastic cells (endocervical component) are present. Performed by: Darshana Young, Lithographic Plate Maker Apprentice (ASCP) . 02 Note: Note 03 The Pap smear is a screening test designed to aid in the detection of premalignant and malignant conditions of the uterine cervix. It is not a diagnostic procedure and should not be used as the sole means of detecting cervical cancer. Both false-positive and false-negative reports do occur. Test Methodology: Note 03 This liquid based ThinPrep(R) pap test was screened with the use of an image guided system. HPV Genotype Reflex Note 02 Criteria not met, HPV Genotype not performed. FLAG LEGEND: L-Low Normal,H-High Normal,LL-Alert Low,HH-Alert High <-Panic Low,>-Panic High,A-Abnormal,AA-Critical Abnormal Performed at: 02 [facility] [address] [place] [address] Regan Sandhu MD, 03 WB [facility] [address] [address] Celine Jerez MD, BRUSH-SPATULA CERVIX [facility]IX [facility] Follitropin Qnon 01-02-2024 FOLLICLE STIM HORMONE 10.1 mIU/mL Normal [facility] Comment on above: Result Comment: NORMAL FEMALE Luteal 1.8-5.1 mIU/mL Follicular 3.8-8.8 mIU/mL Mid Cycle 4.5-22.5 mIU/mL Post Terra 16.7-113.6 mIU/mL Performed By: #### T HYR, 03641-8, 63538-7 #### [facility] ([id number]) [address] [place] [address], [address] [place] [address] #### 37291-5 #### [facility] ([id number]) [address] [place] [address] Lutropin Qnon 01-02-2024 LUTEINIZING HORMONE 8.6 mIU/mL Normal [facility] Comment on above: Result Comment: NORMAL FEMALE Follicular 2.1-10.9 mIU/mL Mid Cycle 19.2-103 mIU/mL Luteal 1.2-12.9 mIU/mL Post Terra 10.9-58.6 mIU/mL Performed By: #### P INR, 01150-8 #### [facility] ([id number]) [address] [place] [address] #### HA1C, CBCA, 49942-5, 3016-3, 3024-7 #### [facility] ([id number]) [address] [place] [address] [address] [place] [address] THYROID PROFILEon 01-02-2024 Free T4 [Mass/Vol] 1.07 ng/dL Normal 0.61-1.60 [facility] Comment on above: Performed By: #### Bina HYR, 95460-2, 41483-0 #### [facility] ([id number]) [address] [place] [address], [facility] [address] [place] [address] #### 44500-8 #### [facility] ([id number]) [address] [place] [address] TSH 0.81 uIU/mL Normal 0.49-4.67 [facility] Comment on above: Performed By: #### T HYR, 51644-6, 13775-7 #### [facility] ([id number]) [address] [place] [address], [address] [place] [address] #### 21974-2 #### [facility] ([id number]) [address] [place] [address] Testosterone free and total panel [Mass/Vol]on 01-02-2024 Testosterone [Mass/Vol] 48 ng/dL Normal 8-60 [facility] Comment on above: Result Comment: NOTE ADDITIONAL INFORMATION Testing performed by Liquid Chromatography-Tandem Mass Spectrometry (LC-MS/MS). This test was developed and its performance characteristics determined by [facility] in a manner consistent with CLIA requirements. This test has not been cleared or approved by the U.S. Food and Drug Administration. Test Performed by: [facility] [address] [place] [address] Station Jailer: Maryanne Frost Ph.D.; CLIA# [id number] Performed By: #### P INR, 93784-2 #### [facility] ([id number]) [address] [place] [address] 85254 #### HA1C, CBCA, 10650-8, 3016-3, 3024-7 #### [facility] ([id number]) [address], [address] [place] [address] TESTOSTERONE FREE 1.69 ng/dL High <0.13-1.03 [facility] Comment on above: Result Comment: NOTE ADDITIONAL INFORMATION This test was developed and its performance characteristics determined by [facility] in a manner consistent with CLIA requirements. This test has not been cleared or approved by the U.S. Food and Drug Administration. Performed By: #### P INR, 14637-1 #### [facility] ([id number]) [address] [place] [address] 30136 #### HA1C, CBCA, 96488-7, 3016-3, 3024-7 #### [facility] ([id number]) [address], [address] [place] [address] Cytology Cervical or vaginal smear or scraping studyon 01-01-2024 [facility] CBC AND AUTO DIFFon 12-19-19 24 ABSOLUTE BASOPHIL 0.0 X10E9/L Normal 0.0-0.2 [facility] Comment on above: Performed By: #### P INR, 09541-7 #### [facility] ([id number]) [address] [place] [address] 92901 #### HA1C, CBCA, 04214-2, 3016-3, 3024-7 #### [facility] ([id number]) [address], [address] [place] [address] ABSOLUTE NEUTROPHIL 4.2 X10E9/L Normal 1.5-6.6 [facility] Comment on above: Performed By: #### P INR, 87766-0 #### [facility] ([id number]) [address] [place] [address] 83130 #### HA1C, CBCA, 37672-1, 6-3, 4-7 #### [facility] ([id number]) [address], [address] [place] [address] Basophils/100 WBC (Bld) 0.6 % Normal [facility] Comment on above: Performed By: #### P INR, 52181-4 #### [facility] ([id number]) [address] [place] [address] 57800 #### HA1C, CBCA, 82878-5, 3016-3, 3024-7 #### [facility] ([id number]) [address], [address] [place] [address] Eosinophils (Bld) [#/Vol] 0.1 10*3/uL Normal 0.0-0.4 [facility] Comment on above: Performed By: #### P INR, 65113-1 #### [facility] ([id number]) [address] [place] [address] 58608 #### HA1C, CBCA, 58116-3, 3016-3, 3024-7 #### [facility] ([id number]) [address], [address] [place] [address] Eosinophils/100 WBC (Bld) 2.0 % Normal [facility] Comment on above: Performed By: #### P INR, 62049-4 #### [facility] ([id number]) [address] [place] [address] 72535 #### HAMilagros, CBCA, 00478-0, 6-3, 4-7 #### [facility] ([id number]) [address], [address] [place] [address] Erythrocyte distribution width (RBC) [Ratio] 12.1 % Normal 11.5-15.0 [facility] Comment on above: Performed By: #### P INR, 21359-0 #### [facility] ([id number]) [address] [place] [address] 91548 #### HAMilagros, CBCA, 74632-2, 6-3, 4-7 #### [facility] ([id number]) [address], [address] [place] [address] Hematocrit (Bld) [Volume fraction] 39.5 % Normal 35-47 [facility] Comment on above: Performed By: #### P INR, 23783-7 #### [facility] ([id number]) [address] [place] [address]89[address] #### HAMilagros, CBCA, 60309-0, 6-3, 4-7 #### [facility] ([id number]) [address], [address] [place] [address] Hemoglobin (Bld) [Mass/Vol] 13.7 g/dL Normal 11.7-15.5 [facility] Comment on above: Performed By: #### P INR, 31080-3 #### [facility] ([id number]) [address] [place] [address] 13046 #### HA1C, CBCA, 18910-5, 3016-3, 3024-7 #### [facility] ([id number]) [address] [place] [address] Lymphocytes (Bld) [#/Vol] 2.6 10*3/uL Normal 1.0-3.5 [facility] Comment on above: Performed By: #### P INR, 28421-5 #### [facility] ([id number]) [address] [place] [address] #### HA1C, CBCA, 56005-6, 3016-3, 3024-7 #### [facility] ([id number]) [address], [address] [place] [address] Lymphocytes/100 WBC (Bld) 35.6 % Normal [facility] Comment on above: Performed By: #### P INR, 69102-3 #### [facility] ([id number]) [address] [place] [address] 39161 #### HA1C, CBCA, 26390-5, 3016-3, 3024-7 #### [facility] ([id number]) [address], [address] [place] [address] MCH (RBC) [Entitic mass] 29.7 pg Normal 27-34 [facility] Comment on above: Performed By: #### P INR, 84469-0 #### [facility] ([id number]) [address] [place] [address] 495[address] #### HA1C, CBCA, 47873-4, 3016-3, 3024-7 #### [facility] ([id number]) [address], [address] [place] [address] MCHC (RBC) [Mass/Vol] 34.7 g/dL Normal 32-36 [facility] Comment on above: Performed By: #### P INR, 52883-5 #### [facility] ([id number]) [address] [place] [address] 63639 #### SHIMON, CBCA, 53504-8, 6-3, 7 #### [facility] ([id number]) [address], [address] [place] [address] MCV (RBC) [Entitic vol] 86 fL Normal 80-100 [facility] Comment on above: Performed By: #### P INR, 75016-9 #### [facility] ([id number]) [address] [place] [address] 62618 #### SHIMON, CBCA, 42136-8, 3015-3, 7 #### [facility] ([id number]) [address], [address] [place] [address] Monocytes (Bld) [#/Vol] 0.3 10*3/uL Normal 0-0.9 [facility] Comment on above: Performed By: #### P INR, 95681-4 #### [facility] ([id number]) [address] [place] [address] 38314 #### SHIMON, CBCA, 56091-3, 3015-3, 7 #### [facility] ([id number]) [address], [address] [place] [address] Monocytes/100 WBC (Bld) 4.4 % Normal [facility] Comment on above: Performed By: #### P INR, 54807-4 #### [facility] ([id number]) [address] [place] [address]70 #### HAMilagros, CBCA, 90011-9, 3015-3, 7 #### [facility] ([id number]) [address], [address] [place] [address] Neutrophils/100 WBC (Bld) 57.4 % Normal [facility] Comment on above: Performed By: #### P INR, 39039-7 #### [facility] ([id number]) [address] [place] [address] 43077 #### HA1C, CBCA, 92353-8, 3016-3, 3024-7 #### [facility] ([id number]) [address], [address] [place] [address] Platelet mean volume (Bld) [Entitic vol] 8.0 fL Normal 7-12 [facility] Comment on above: Performed By: #### P INR, 16975-7 #### [facility] ([id number]) [address] [place] [address] 18931 #### HA1C, CBCA, 69609-8, 3016-3, 4-7 #### [facility] ([id number]) [address], [address] [place] [address] Platelets (Bld) [#/Vol] 306 10*3/uL Normal 150-450 [facility] Comment on above: Performed By: #### P INR, 30838-0 #### [facility] ([id number]) [address] [place] [address] 19191 #### HA1C, CBCA, 40442-5, 3016-3, 3024-7 #### [facility] ([id number]) [address] [place] [address] RBC COUNT 4.62 X10E12/L Normal 3.80-5.20 [facility] Comment on above: Performed By: #### P INR, 66228-9 #### [facility] ([id number]) [address] [place] [address] 30097 #### HA1C, CBCA, 85717-9, 3016-3, 3024-7 #### [facility] ([id number]) [address] [place] [address] WBC (Bld) [#/Vol] 7.3 10*3/uL Normal 4.0-11.0 [facility] Comment on above: Performed By: #### P INR, 77732-7 #### [facility] ([id number]) [address] [place] [address] 19202 #### HA1C, CBCA, 61065-2, 3016-3, 3024-7 #### [facility] ([id number]) [address] [place] [address] FREE T4on 12-19-2023 Free T4 [Mass/Vol] 1.14 ng/dL Normal 0.61-1.60 [facility] Comment on above: Performed By: #### P INR, 95733-5 #### [facility] ([id number]) [address] [place] [address] 88085 #### HA1C, CBCA, 75520-8, 3016-3, 3024-7 #### [facility] ([id number]) [address] [place] [address], [address] [place] [address] HCG.beta subunit IA 3rd IS Q non 12-19-2023 SERUM B HCG,3RD I.S. <5 Normal [facility] Comment on above: Result Comment: NEW REFERENCE [...] trophoblastic or nontrophoblastic neoplasms. Performed By: #### P INR, 32683-8 #### [facility] ([id number]) [address] [place] [address] 97285 #### HA1C, CBCA, 60223-2, 3016-3, 3024-7 #### [facility] ([id number]) [address], [address] [place] [address] HGB A1C (GLYCO-HGB)on 2023 Glucose [Mass/Vol] 154 mg/dL Normal [facility] Comment on above: Performed By: #### P INR, 01267-1 #### [facility] ([id number]) [address] [place] [address] 83535 #### HA1C, CBCA, 65220-7, 3016-3, 3024-7 #### [facility] ([id number]) [address] [place] [address] HbA1c (Bld) [Mass fraction] 7.0 % High 4.4-5.6 [facility] Comment on above: Result Comment: NOTE ADA Guidelines Result HgbA1c Normal : less than 5.7 % Prediabetes : 5.7 % to 6.4 % Diabetes : > 6.4 % Use with caution in patients with abnormal hemoglobin variants as the half-life of red blood cells and in vivo glycation rates are affected. Performed By: #### P INR, 76116-1 #### [facility] ([id number]) [address] [place] [address] 87667 #### HA1C, CBCA, 70683-0, 3016-3, 3024-7 #### [facility] ([id number]) [address], [address] [place] [address] PROTIME AND INRon 12-19-2023 INR Coag (PPP) [Relative time] 1.1 {INR} Normal 0.8-1.1 [facility] Comment on above: Performed By: #### P INR, 83768-4 #### [facility] ([id number]) [address] [place] [address] 20569 #### HA1C, CBCA, 48515-1, 3016-3, 3024-7 #### [facility] ([id number]) [address] [place] [address] [address] [place] [address] PT Coag (PPP) [Time] 12.5 s Normal 9.8-13.2 [facility] Comment on above: Result Comment: NEW REFERENCE RANGE Performed By: #### P INR, 21257-3 #### [facility] ([id number]) [address] [place] [address] 88828 #### HA1C, CBCA, 83151-6, 3016-3, 3024-7 #### [facility] ([id number]) [address] [place] [address] TSH Qnon 12-19-2023 TSH 1.08 uIU/mL Normal 0.49-4.67 [facility] Comment on above: Performed By: #### P INR, 34743-6 #### [facility] ([id number]) [address] [place] [address] 73904 #### HA1C, CBCA, 90900-6, 3016-3, 3024-7 #### [facility] ([id number]) [address] [place] [address], [address] [place] [address] aPTT Coag (PPP) [Time]on aPTT Coag (Bld) [Time] 36 s Normal 26-37 [facility] Comment on above: Result Comment: NEW REFERENCE RANGE Performed By: #### P INR, 30157-0 #### [facility] ([id number]) [address] [place] [address] #### HA1C, CBCA, 68801-5, 3016-3, 3024-7 #### [facility] ([id number]) [address], [address] [place] [address] HCG.beta subunit IA 3rd IS Q non 12-03-2023 SERUM B HCG,3RD I.S. <5 Normal [facility] Comment on above: Result Comment: NEW REFERENCE [...] trophoblastic or nontrophoblastic neoplasms. Performed By: #### 2 0415-6 #### [facility] ([id number]) [address] [place] [address] PT - Assessmentson 4 PT - Assessments [id number]#1.00TIFF Normal [facility] PT - Assessments [id number]#1.00TIFF Normal [facility] Nonvisit Note - PTon 10-22-2 024 Nonvisit Note - PT 1100 Edilson shafer alled and rescheduled to next afternoon. She said her ride canceled on her last minute today. Normal [facility] Nonvisit Note - PTon 024 Nonvisit Note - PT Patient cancelled to day's PT session per the auto remind system. Normal [facility] POCT Glucose Fingerstickon 0 10-17-2023 Glucose [Mass/Vol] 197 mg/dL Abnormal 65 - 99 mg/dL [facility] Interpretation and review of laboratory results Abnormal [facility] [email or web address] [facility] POCT Hemoglobin A1con 2023 ADA Target < 8 Yes [facility] HbA1c (Bld) [Mass fraction] 7.2 g/dL Abnormal 4 - 7 g/dL [facility] Interpretation and review of laboratory results Abnormal [facility] PT - Home Exercise Programon 10-11-2023 PT - Home Exercise Program [id number]#1.00TIFF Normal [facility] PT - Assessmentson PT - Assessments [id number]#1.00TIFF Normal [facility] Video Visit - Telehealtho n 10-01-2023 Video Visit - Telehealth Start Time 3:15 pm Stop Time 4:00 pm Chief Complaint Did an ADHD screener and made a referral for ADOS testing. Calling PCP upon completion. Son is dx with ASD and August Displays both ADHD and ASD. Very common [...] Mental Status Exam Alert and Oriented X4 Diagnosis/Assessment/Kylah tment Plan 1. ADHD (attention deficit hyperactivity disorder) (F90.9: Attention-deficit hyperactivity disorder, unspecified type) Psychotherapy Summary Client and Clinician started this session of with a brief check in via telehealth. Checked in too see how August is doing. During this session family hx [...] PCP. Referral for ADOS testing. Patient Response August was receptive and wanted referral. Patient Assignment [...] Primary malignant neoplasm of female breast: Mother. [facility] Comment on above: Result Comment: Elec tronically Signed By: Zahraa Iqbal\.br\Date and Time Signed: 10/01/23 16:26 EDT PT - [place] 09-11-2023 PT - Orders [id number]#1.00TIFF [facility] PT - Assessmentson PT - Assessments [id number]#1.00TIFF [facility] PT - Assessments [id number]#1.00TIFF [facility] PT - Consentson 09-05-2023 PT - Consents [id number]#1.00TIFF [facility] PT - [place] 09-05-2023 PT - Orders [id number]#1.00TIFF [facility] Consent for Treatmenton 08-13 Consent for Treatment [id number]#1.00TIFF [facility] Insurance Correspondenceon 0 09-04-2023 Insurance Correspondence [id number]#1.00TIF F [facility] Nonvisit Note - PTon 024 Nonvisit Note - PT chart reviewed with eval prepped for scheduled eval. KK [facility] PT - [place] 08-28-2023 PT - Orders [id number]#1.00TIFF [facility] Office Visiton 08-15-2023 Follow-up visit [id number] Aida Dunn 1990 F Date Provider Department Center 08/15/2023 FABIOLA HOLDER [facility] CARD [facility] Heart[facility]AS No family history on file Level of Service:10828 HI OFFICE/OUTPATIENT ESTABLISHED LOW MDM 20 MIN Reason for Visit and Comments: POTs [Other] Normal [facility] POCT Hemoglobin A1con 2023 HbA1c (Bld) [Mass fraction] 6.7 g/dL 4 - 7 g/dL [facility] PT - Assessmentson PT - Assessments [id number]#1.00TIFF [facility] PT - Assessments [id number]#1.00TIFF [facility] PT - Home Exercise Programon 07-03-2023 PT - Home Exercise Program [id number]#1.00TIFF [facility] ST - Assessmentson ST - Assessments [id number]#1.00TIFF [facility] PT - Assessmentson 4 PT - Assessments [id number]#1.00TIFF [facility] PT - Assessments [id number]#1.00TIFF [facility] PT - Home Exercise Programon 06-19-2023 PT - Home Exercise Program [id number]#1.00TIFF [facility] ST - Assessmentson ST - Assessments [id number]#1.00TIFF [facility] ST - Consentson 05-30-2023 ST - Consents [id number]#1.00TIFF [facility] ST - Protocolson 05-30-2023 ST - Protocols [id number]#1.00TIFF [facility] Video Visit - Telehealtho 05-26-2023 Video Visit - Telehealth Start Time [...] Mental Status Exam Alert and oriented X4 Diagnosis/Assessment/Kylah tment Plan 1. Complex posttraumatic stress disorder (F43.10: Post-traumatic stress disorder, unspecified) Psychotherapy Summary Aida and connection come together via video session, as this [...] malignant neoplasm of female breast: Mother. Normal [facility] Comment on above: Result Comment: Elec tronically Signed By: Zahraa Iqbal\.scotty\Date and Time Signed: 05/26/23 14:55 EST Nonvisit Note - PTon 024 Nonvisit Note - PT Pt canceled her outpatient PT appt for this date; per medical records secretary's note pt will just come on 06/05/23 for her reeval as she has to come during her children's therapy sessions. Normal [facility] PT - Home Exercise Programon 05-15-2023 PT - Home Exercise Program [id number]#1.00TIFF Normal [facility] Physician Orderon 05-15-2023 Physician Order [id number]#1.00TIFF Normal [facility] Video Visit - Telehealtho n 05-08-2023 Video [...] and beliefs on disagreements. 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 Boyfriend is more adventist and this causes conflict, and does not [...] Primary malignant neoplasm of female breast: Mother. [facility] Comment on above: Result Comment: Elec tronically Signed By: Zahraa Iqbal\.br\Date and Time Signed: 05/08/23 15:37 EST PT - [place] 04-26-2023 PT - Orders [id number]#1.00TIFF [facility] Insurance Correspondenceon 1 06-26-2022 Insurance Correspondence Order Summary PROVIDER PORTAL HOME BACK TO ORDER SEARCH Member: ADITI AUGUST Tracking Number: Tracking Number: [id number] Health Plan [facility] [place] - Med Adv Member ID: Spacer Spacer Spacer Physical Therapy Service(s) WITHDRAW ORDER Order : [id number] Valid Dates: 04/26/2023 - 06/24/2023 Order Status: [...] near the end of these approved visits. Lead Investigator Refresh Status Refresh Status Documents Received Date/Time Received Source From Status File Name/Type No documents have been uploaded. Services Requested (6) Requires Review Messaging All requested services meet criteria Services Requested Details Link Hide Details Service Date 04/26/2023 Urgent / Completed Flag Condition R26.81 - Unsteadiness on feet Spacer Physical Therapy Service(s) : Service codes may be grouped together for review. Code Description 58840 Therapeutic exercise to develop strength, endurance, range of motion, and flexibility, each 15 minutes 38399 Therapeutic procedure to re-educate jyhnb-ku-dlfos-to-muscle function, each 15 minutes 32529 Walking training to 1 or more areas, each 15 minutes 26852 Water pool therapy with therapeutic exercises to 1 or more areas, each 15 minutes Clinical Feedback Not Applicable Actions Physical Therapy Service(s) : 12859 Application of electrical stimulation to 1 or more areas, each 15 minutes Not Applicable Physical Therapy Service(s) : 56601 Application of ultrasound to 1 or more areas, each 15 minutes Not Applicable Spacer Ordering Provider BLANCO CHAVEZ Change Provider AND Show Details Hide Details [address] [place] [address] TIN: [id number] Servicing Facility (Billing Provider) Servicing Facility Icon Ordering Provider Name [facility] Change Provider Link Change Servicing Facility Normal Hide Details\.br\ Place of Service Details [facility] Consent for Treatmenton 04-13 Consent for Treatment [id number]#1.00TIFF Normal [facility] PT - Assessmentson PT - Assessments [id number]#1.00TIFF Normal [facility] PT - Assessments [id number]#1.00TIFF Normal [facility] PT - Consentson 04-24-2023 PT - Consents [id number] [id number]#1.00TIFF Normal [facility] PT - [place] 04-24-2023 PT - Orders [id number]#1.00TIFF Normal [facility] Consent for Treatmenton Consent for Treatment [id number]#1.00TIFF Normal [facility] ST - Otheron 04-16-2023 ST - Other [id number]#1.00TIFF Normal [facility] Behavioral Health Sensitive Noteon 03-15-2023 Behavioral Health Sensitive Note Spoke with Aida and was able to assess how client has been. Client will schedule an appointment in March for therapy. Normal [facility] CULTURE URINEon 03-02-2022 CULTURE URINE Culture Observations : NO GROWTH. Normal [facility] Comment on above: Performed By: #### U RCX #### [facility] [address] [place], [place] [address] Dr. Tennille Gibbs US PELVIS AND TRANSVAGon [...] by: DONNA KUMAR Date: 2021-12-30 06:53 Normal [facility] PAP ACOG PANEL 2: 30 to 65on 12-15-2021 . . Normal [facility] Comment on above: Result Comment: Perf ormed at: WB Performed By: #### 4 [id number] #### [facility] [address] [place] [address] [address] Tennille Gibbs Age Gdln ACOG Testing 30-65 [facility] Comment on above: Performed By: #### 4 [id number] #### [facility] [address] [place], [place] [address] Dr. Tennille Gibbs DIAGNOSIS: Comment Normal [facility] Comment on above: Result Comment: NEGA TIVE FOR INTRAEPITHELIAL LESION OR MALIGNANCY. Performed at: WB Performed By: #### 4 [id number] #### [facility] [address] [place] [address] Dr. Tennille Gibbs HPV Aptima Negative Normal Negative [facility] Comment on above: Result Comment: This nucleic acid amplification test detects fourteen high-risk HPV types (16,18,31,33,35,39,45,51,52,56,58,59,66,68) without differentiation. Performed at: =G Performed By: #### 4 [id number] #### [facility] [address] [place] [address] Dr. Tennille Gibbs Methodology: Comment Normal [facility] Comment on above: Result Comment: This liquid based ThinPrep(R) pap test was screened with the use of an image guided system. Performed at: WB Performed By: #### [id number] #### [facility] [address] [place] [address] Dr. Tennille Gibbs Note: Comment Normal [facility] Comment on above: Result Comment: The Pap smear is a screening test designed to aid in the detection of premalignant and malignant conditions of the uterine cervix. It is not a diagnostic procedure and should not be used as the sole means of detecting cervical cancer. Both false-positive and false-negative reports do occur. . Performed at: WB Performed By: #### [id number] #### [facility] [address] [place] [address] Dr. Tennille Gibbs Performed by: Comment Normal [facility] Comment on above: Result Comment: Digna Lovell Lithographic Plate Maker Apprentice (ASCP) Performed at: WB Performed By: #### [id number] #### [facility] [address] [place] [address] Dr. Tennille Gibbs Specimen adequacy: Comment Normal [facility] Comment on above: Result Comment: Sati sfactory for evaluation. Endocervical and/or squamous metaplastic cells (endocervical component) are present. Performed at: WB Performed By: #### [id number] #### [facility] [address] [place] [address] Dr. Tennille Gibbs HCG-BETA SUBUNIT QUANTon hCG,Beta Subunit,Qnt,Serum <1 Normal [facility] Comment on above: Result Comment: Fema le (Non-) 0 - 5 (Postmenopausal) 0 - 8 . Female () Weeks of Gestation 3 6 - 71 4 10 - 750 5 264 - 7268 6 927 - 46354 7 [id number] [id number] 8 56489 -[phone] 9 42541 -[id number] 10 02846 -[id number] 12 45669 -[phone] 14 20486 - 31187 15 92542 - 89778 16 0093 - 91650 17 1243 - 01688 18 4312 - 62238 Jatin ECLIA methodology Performed By: #### C BC #### [facility] [address] [place] [address] Dr. Tennille Gibbs CBC AUTO DIFFon 12-12-2021 BASO # 0.1 103/ul Normal 0.0-0.1 [facility] Comment on above: Performed By: #### C BC #### [facility] [address] [place] [address] Dr. Tennille Gibbs Basophils/100 WBC (Bld) 1.1 % Normal 0.2-2.0 [facility] Comment on above: Performed By: #### C BC #### [facility] [address] [place] [address] Dr. Tennille Gibbs EO # 0.3 103/ul Normal 0.0-0.7 [facility] Comment on above: Performed By: #### C BC #### [facility] [address] [place] [address] Dr. Tennille Gibbs Eosinophils/100 WBC (Bld) 3.7 % Normal 0.9-7.0 [facility] Comment on above: Performed By: #### C BC #### [facility] [address] [place] [address] Dr. Tennille Gibbs Erythrocyte distribution width (RBC) [Ratio] 11.3 % Normal 11.0-15.0 [facility] Comment on above: Performed By: #### C BC #### [facility] [address] [place] [address] Dr. Tennille Gibbs Hematocrit (Bld) [Volume fraction] 37.0 % Normal 36.0-48.0 [facility] Comment on above: Performed By: #### C BC #### [facility] [address] [place] [address] Dr. Tennille Gibbs Hemoglobin (Bld) [Mass/Vol] 12.7 g/dL Normal 12.0-16.0 [facility] Comment on above: Performed By: #### C BC #### [facility] [address] [place] [address] Dr. Tennille Gibbs IG # 0.01 10e3/ul Normal 0.00-0.03 [facility] Comment on above: Performed By: #### C BC #### [facility] [address] [place] [address] Dr. Tennille Gibbs IG % 0.1 % Normal 0.0-0.5 [facility] Comment on above: Performed By: #### C BC #### [facility] [address] [place] [address] Dr. Tennille Gibbs LYMPH # 2.3 103/ul Normal 1.2-3.8 [facility] Comment on above: Performed By: #### C BC #### [facility] [address] [place] [address] Dr. Tennille Gibbs Lymphocytes/100 WBC (Bld) 31.2 % Normal 20.5-60.0 [facility] Comment on above: Performed By: #### C BC #### [facility] [address] [place] [address] Dr. Tennille Gibbs MANUAL DIFF REQ NO Normal [facility] Comment on above: Performed By: #### C BC #### [facility] [address] [place] [address] Dr. Tennille Gibbs MCH (RBC) [Entitic mass] 29.4 pg Normal 26.7-34.0 [facility] Comment on above: Performed By: #### C BC #### [facility] [address] [place] [address] Dr. Tennille Gibbs MCHC (RBC) [Mass/Vol] 34.3 g/dL Normal 29.9-35.2 [facility] Comment on above: Performed By: #### C BC #### [facility] [address] [address] [address] Tennille Gibbs MCV (RBC) [Entitic vol] 85.6 fL Normal 81.0-99.0 [facility] Comment on above: Performed By: #### C BC #### [facility] [address] [address] [address] Tennille Gibbs MONO # 0.5 103/ul Normal 0.3-0.8 [facility] Comment on above: Performed By: #### C BC #### [facility] [address] [address] [address] Tennille Gibbs Monocytes/100 WBC (Bld) 6.2 % Normal 1.7-12.0 [facility] Comment on above: Performed By: #### C BC #### [facility] [address] [address] [address] Tennille Gibbs NEUT # 4.2 103/ul Normal 1.4-6.5 [facility] Comment on above: Performed By: #### C BC #### [facility] [address] [address] [address] Tennille Gibbs Neutrophils/100 WBC (Bld) 57.7 % Normal 43.0-75.0 [facility] Comment on above: Performed By: #### C BC #### [facility] [address] [address] [address] Tennille Gibbs Platelet mean volume (Bld) [Entitic vol] 9.3 fL Critically low 9.5-13.5 [facility] Comment on above: Performed By: #### C BC #### [facility] [address] [address] [address] Tennille Gibbs PLT 283 103/ul Normal 150-450 [facility] Comment on above: Performed By: #### C BC #### [facility] [address] [address] [address] Tennille Gibbs RBC 4.32 106/ul Normal 4.20-5.40 [facility] Comment on above: Performed By: #### C BC #### [facility] [address] [place] [address] Dr. Tennille Gibbs WBC 7.2 103/ul Normal 4.0-11.0 [facility] Comment on above: Performed By: #### C BC #### [facility] [address] [place] [address] Dr. Tennille Gibbs FREE T4on 12-12-2021 Free T4 [Mass/Vol] 1.00 ng/dL Normal 0.76-1.46 [facility] Comment on above: Performed By: #### F T4 #### [facility] [address] [place] [address] Dr. Tennille Gibbs PROTIMEon 12-12-2021 INR Coag (PPP) [Relative time] 0.99 {INR} Normal [facility] Comment on above: Performed By: #### P TT, PT #### [facility] [address] [place] [address] Dr. Tennille Gibbs INR GUIDELINES SEE BELOW Normal [facility] Comment on above: Result Comment: ARASELI RED INR: 2.0 - 3.0 CONDITIONS NOT LISTED BELOW 2.5 - 3.5 FOR PROSTHETIC HEART VALVE REPLACEMENT 2.5 - 3.5 RECURRENT THROMBOSIS Performed By: #### P TT, PT #### [facility] [address] [place] [address] Dr. Tennille Gibbs PT Coag (PPP) [Time] 10.7 s Normal 9.0-11.6 [facility] Comment on above: Performed By: #### P TT, PT #### [facility] [address] [place] [address] Dr. Tennille Gibbs PTTon 12-12-2021 aPTT Coag (Bld) [Time] 28.2 s Normal 22.3-36.2 [facility] Comment on above: Performed By: #### C BC #### [facility] [address] [place] [address] Dr. Tennille Gibbs TSHon 12-12-2021 TSH 0.453 uIU/mL Normal 0.358-3.740 [facility] [place] [facility] Comment on above: Performed By: #### T SH #### [facility] [address] [address] [address] Tennille Gibbs COVID Quick Testingon 2021 Result Positive Bottle Other US PELVIS AND TRANSVAGon US PELVIS [...] DONNA KUMAR Date: 2021-05-27 14:50 Normal [facility] CHLAMYDIA/GONOCOCCUS HAIM (SW AB/URINE/PAPon 05-26-2021 Chlamydia trachomatis, HAIM Negative Normal Negative [facility] Comment on above: Performed By: #### C T/NGNA #### [facility] [address] [address] [address] Tennille Gibbs Neisseria gonorrhoeae, HAIM Negative Normal Negative [facility] Comment on above: Performed By: #### C T/NGNA #### [facility] [address] [place], [place] [address] Dr. Tennille Gibbs VAGINITIS/VAGINOSIS DNA PROB Ced 05-25-2021 Genesis species Negative Normal Negative [facility] Comment on above: Performed By: #### V AGINT #### [facility] [address] [address] [address] Tennille Gibbs Gardnerella vaginalis Negative Normal Negative [facility] Comment on above: Performed By: #### V AGINT #### [facility] [address] [address] [address] Tennille Gibbs Trichomonas vaginalis Negative Normal Negative [facility] Comment on above: Performed By: #### V AGINT #### [facility] [address] [address] [address] Tennille Gibbs FT4on 01-14-2020 Free T4 [Mass/Vol] 1.38 ng/dL Normal 0.79-2.35 [facility] Comment on above: Performed By: #### 4 500, 4520 #### [facility] Unless Otherwise Noted [address] [address] / COLA #4724/CLIA # [id number] TSHon 01-14-2020 TSH Qn 1.16 uIU/ml Normal 0.47-4.68 [facility] Comment on above: Performed By: #### 4 500, 4520 #### [facility] Unless Otherwise Noted [address] [address] / [facility] #4724/CLIA # [id number] [place] 05-16-2019 ALT [Catalytic activity/Vol] 32.0 U/L Normal 13.0-69.0 [facility] Comment on above: Performed By: #### 1 005, 1075, 1380 #### [facility] Unless Otherwise Noted [address] [address] / [facility]A #4724/CLIA # [id number] CKon 05-16-2019 CK [Catalytic activity/Vol] 293.0 U/L High 30.0-135.0 [facility] Comment on above: Performed By: #### 1 005, 1075, 1380 #### [facility] Unless Otherwise Noted [address] [facility] [address] [place] [address] / COLA #4724/CLIA # [id number] [place] 05-16-2019 Cholesterol [Mass/Vol] 213.0 mg/dL High 0.0-199.0 [facility] Comment on above: Performed By: #### 1 005, 1075, 1380 #### [facility] Unless Otherwise Noted [address] [address] / [facility]A #4724/CLIA # [id number] Cholesterol in HDL [Mass/Vol] 48.0 mg/dL Normal 40.0-60.0 [facility] Comment on above: Performed By: #### 1 005, 107, 1380 #### [facility] Unless Otherwise Noted [address] [address] / COLA #4724/CLIA # [id number] Cholesterol in LDL [Mass/Vol] 132.6 mg/dL High 0.0-100.0 [facility] Comment on above: Performed By: #### 1 005, 107, 1380 #### [facility] Unless Otherwise Noted [address] [address] / [facility]A #4724/CLIA # [id number] Cholesterol in VLDL [Mass/Vol] 32.4 mg/dL Normal [facility] Comment on above: Performed By: #### 1 005, 1075, 1380 #### [facility] Unless Otherwise Noted [address] [address] / [facility]A #4724/CLIA # [id number] Cholesterol.total/C holesterol in HDL [Mass ratio] 4.4 {ratio} Normal [facility] Comment on above: Performed By: #### 1 005, 1075, 1380 #### [facility] Unless Otherwise Noted [address] [address] / [facility]A #4724/CLIA # [id number] Triglyceride [Mass/Vol] 162.0 mg/dL High 0.0-150.0 [facility] Comment on above: Performed By: #### 1 005, 107, 1380 #### [facility] Unless Otherwise Noted [address] [facility] [address] [place] [address] / [facility] #4724/CLIA # [id number] Neurology Office/Clinic Note on 02-20-2018 Neurology Office/Clinic [...] taking any medication for her headaches, both itcp-fjx-uuxmcnq as well as prescription. Patient denied double vision, blurry vision, bright spots in the vision field, dark spots in the vision rawls, zigzag lines in the vision field, photophobia/phonophobia/n ausea/vomiting, problems identifying colors/hue, pain behind the eyeballs, [...] and 1+ at bilateral ankles. Coordination: Normal lygpmf-ib-tmrw testing. No past pointing or intention tremor. Gait: Patient is able to walk unassisted. The examination is essentially unchanged from the last visit. Assessment/Plan 1. Chronic migraine without aura No further migraine episodes since and her . Baby doing well in NICU. She was told to use qmvl-asc-smlrzcp Tylenol or ibuprofen for her current headaches [...] I spent 15 minutes with the patient qvnx-ll-hdpa, and 60% of that time was spent educating the patient/family on diagnosis, prognosis, and treatment options as documented above. I spent another 10 minutes reviewing medical records and additional 10 minutes completing documentation. This chart was created with voice-recognition and may contain belly roller errors or nonsense words. Problem List/Past Medical [...] and Father. Hypertension: Mother. Electronically signed by Travis Smith MD 02/20/18 10:04 EDT Normal [facility] ED Noteon 12-07-2016 HIM IP Note OR Tmd Teacher Assistant [facility] ED Provider Noteon 7 HIM IP Note OR Tmd Teacher Assistant [facility] Vital Signs Date Time Vital Sign Value Performing Clinician Facility 01-07-2025 14:03-0400 Body mass index (BMI) [Ratio] 29.66 kg/m2 AnkitJeeran Work Phone: [facility] 01-07-2025 14:03-0400 Body weight 80.85 kg AnkitJeeran Work Phone: [facility] 01-07-2025 14:03-0400 Diastolic blood pressure 82 mm[Hg] [employer] Work Phone: [facility] 01-07-2025 14:03-0400 Systolic blood pressure 122 mm[Hg] AnkitJeeran Work Phone: [facility] 12-02-2024 10:47-0400 Body height 165.1 cm Blanco Chavez MD Work Phone: [facility] 12-02-2024 10:47-0400 Body mass index (BMI) [Ratio] 29.62 kg/m2 Blanco Chavez MD Work Phone: [facility] 12-02-2024 10:47-0400 Body temperature 97.81 [degF] Blanco Chavez MD Work Phone: [facility] 12-02-2024 10:47-0400 Body weight 80.74 kg Blanco Chavez MD Work Phone: [facility] 12-02-2024 10:47-0400 Diastolic blood pressure 74 mm[Hg] Blanco Chavez MD Work Phone: [facility] 12-02-2024 10:47-0400 Heart rate 89 /min Blanco Chavez MD Work Phone: [facility] 12-02-2024 10:47-0400 Respiratory rate 22 /min Blanco Chavez MD Work Phone: [facility] 12-02-2024 10:47-0400 SaO2% (BldA) [Mass fraction] 97 % Blanco Chavez MD Work Phone: [facility] 12-02-2024 10:47-0400 Systolic blood pressure 120 mm[Hg] Blanco Chavez MD Work Phone: [facility] 11-07-2024 10:37-0400 Body height 165.1 cm Dena Fernandez ACUTE CARE PHYSICAL THERAPIST-PERFORMANCE TEST ENGINEER Work Phone: [facility] 11-07-2024 10:37-0400 Body mass index (BMI) [Ratio] 30.2 kg/m2 Denablair Fernandez ACUTE CARE PHYSICAL THERAPIST-PERFORMANCE TEST ENGINEER Work Phone: [facility] 11-07-2024 10:37-0400 Body weight 82.33 kg Dena Fernandez ACUTE CARE PHYSICAL THERAPIST-PERFORMANCE TEST ENGINEER Work Phone: [facility] 11-07-2024 10:37-0400 Diastolic blood pressure 84 mm[Hg] Denablair Fernandez ACUTE CARE PHYSICAL THERAPIST-PERFORMANCE TEST ENGINEER Work Phone: [facility] 11-07-2024 10:37-0400 Heart rate 92 /min Dena Fernandez APRN-PERFORMANCE TEST ENGINEER Work Phone: [facility] 11-07-2024 10:37-0400 SaO2% (BldA) [Mass fraction] 98 % Dena Fernandez APRN-PERFORMANCE TEST ENGINEER Work Phone: [facility] 11-07-2024 10:37-0400 Systolic blood pressure 149 mm[Hg] Dena Fernandez APRN-PERFORMANCE TEST ENGINEER Work Phone: [facility] 10-15-2024 09:28-0400 Body height 165.1 cm Blanco Chavez MD Work Phone: [facility] 10-15-2024 09:28-0400 Body mass index (BMI) [Ratio] 30.95 kg/m2 Blanco Chavez MD Work Phone: [facility] 10-15-2024 09:28-0400 Body temperature 97.5 [degF] Blanco Chavez MD Work Phone: [facility] 10-15-2024 09:28-0400 Body weight 84.37 kg Blanco Chavez MD Work Phone: [facility] 10-15-2024 09:28-0400 Diastolic blood pressure 72 mm[Hg] Blanco Chavez MD Work Phone: [facility] 10-15-2024 09:28-0400 Heart rate 89 /min Blanco Chavez MD Work Phone: [facility] 10-15-2024 09:28-0400 Respiratory rate 20 /min Blanco Chavez MD Work Phone: [facility] 10-15-2024 09:28-0400 SaO2% (BldA) [Mass fraction] 97 % Blanco Chavez MD Work Phone: [facility] 10-15-2024 09:28-0400 Systolic blood pressure 134 mm[Hg] Blanco Chavez MD Work Phone: [facility] 09-19-2024 12:03-0400 Body weight 85.5 kg Irina Moreno MD Work Phone: [facility] 09-19-2024 12:03-0400 Diastolic blood pressure 85 mm[Hg] Irina Moreno MD Work Phone: [facility] 09-19-2024 12:03-0400 Heart rate 96 /min Irina Moreno MD Work Phone: [facility] 09-19-2024 12:03-0400 Systolic blood pressure 140 mm[Hg] Irina Moreno MD Work Phone: [facility] 08-15-2024 09:46-0400 Body height 165.1 cm Vale Gonsalves MD Work Phone: [facility] 08-15-2024 09:46-0400 Body mass index (BMI) [Ratio] 31.25 kg/m2 Vale Gonsalves MD Work Phone: [facility] 08-15-2024 09:46-0400 Body temperature 98.2 [degF] Vale Gonsalves MD Work Phone: [facility] 08-15-2024 09:46-0400 Body weight 85.19 kg Vale Gonsalves MD Work Phone: [facility] 08-15-2024 09:46-0400 Respiratory rate 17 /min Vale Gonsalves MD Work Phone: [facility] 07-04-2024 10:53-0500 Body height 165.1 cm Blanco Chavez MD Work Phone: [facility] 07-04-2024 10:53-0500 Body mass index (BMI) [Ratio] 30.95 kg/m2 Blnaco Chavez MD Work Phone: [facility] 07-04-2024 10:53-0500 Body temperature 97.3 [degF] Blanco Chavez MD Work Phone: [facility] 07-04-2024 10:53-0500 Body weight 84.37 kg Blanco Chavez MD Work Phone: [facility] 07-04-2024 10:53-0500 Diastolic blood pressure 74 mm[Hg] Blanco Chavez MD Work Phone: [facility] 07-04-2024 10:53-0500 Heart rate 91 /min Blanco Chavez MD Work Phone: [facility] 07-04-2024 10:53-0500 Respiratory rate 18 /min Blanco Chavez MD Work Phone: [facility] 07-04-2024 10:53-0500 SaO2% (BldA) [Mass fraction] 98 % Blanco Chavez MD Work Phone: [facility] 07-04-2024 10:53-0500 Systolic blood pressure 120 mm[Hg] Blanco Chavez MD Work Phone: [facility] 06-11-2024 13:52-0500 Body height 165.1 cm Blanco Chavez MD Work Phone: [facility] 06-11-2024 13:52-0500 Body mass index (BMI) [Ratio] 31.12 kg/m2 Blanco Chavez MD Work Phone: [facility] 06-11-2024 13:52-0500 Body temperature 97.5 [degF] Blanco Chavez MD Work Phone: [facility] 06-11-2024 13:52-0500 Body weight 84.82 kg Blnaco Chavez MD Work Phone: [facility] 06-11-2024 13:52-0500 Diastolic blood pressure 78 mm[Hg] Blanco Chavez MD Work Phone: [facility] 06-11-2024 13:52-0500 Heart rate 84 /min Blanco Chavez MD Work Phone: [facility] 06-11-2024 13:52-0500 Respiratory rate 22 /min Blanco Chavez MD Work Phone: [facility] 06-11-2024 13:52-0500 SaO2% (BldA) [Mass fraction] 97 % Blanco Chavez MD Work Phone: [facility] 06-11-2024 13:52-0500 Systolic blood pressure 146 mm[Hg] Blanco Chavez MD Work Phone: [facility] 05-22-2024 12:19-0500 Body weight 83.9 kg Irina Moreno MD Work Phone: [facility] 05-22-2024 12:19-0500 Diastolic blood pressure 82 mm[Hg] Irina Moreno MD Work Phone: [facility] 05-22-2024 12:19-0500 Heart rate 92 /min Irina Moreno MD Work Phone: [facility] 05-22-2024 12:19-0500 Systolic blood pressure 126 mm[Hg] Irina Moreno MD Work Phone: [facility] 05-19-2024 13:59-0500 Body height 165.1 cm Blanco Chavez MD Work Phone: [facility] 05-19-2024 13:59-0500 Body mass index (BMI) [Ratio] 31.12 kg/m2 Blanco Chavez MD Work Phone: [facility] 05-19-2024 13:59-0500 Body temperature 97.3 [degF] Blanco Chavez MD Work Phone: [facility] 05-19-2024 13:59-0500 Body weight 84.82 kg Blanco Chavez MD Work Phone: [facility] 05-19-2024 13:59-0500 Diastolic blood pressure 68 mm[Hg] Blanco Chavez MD Work Phone: [facility] 05-19-2024 13:59-0500 Heart rate 88 /min Blanco Chavez MD Work Phone: [facility] 05-19-2024 13:59-0500 Respiratory rate 18 /min Blanco Chavez MD Work Phone: [facility] 05-19-2024 13:59-0500 SaO2% (BldA) [Mass fraction] 98 % Blanco Chavez MD Work Phone: [facility] 05-19-2024 13:59-0500 Systolic blood pressure 128 mm[Hg] Blanco Chavez MD Work Phone: [facility] 04-14-2024 10:10-0500 Body height 165.1 cm Blanco Chavez MD Work Phone: [facility] 04-14-2024 10:10-0500 Body mass index (BMI) [Ratio] 30.95 kg/m2 Blanco Chavez MD Work Phone: [facility] 04-14-2024 10:10-0500 Body temperature 97.11 [degF] Blanco Chavez MD Work Phone: [facility] 04-14-2024 10:10-0500 Body weight 84.37 kg Blanco Chavez MD Work Phone: [facility] 04-14-2024 10:10-0500 Diastolic blood pressure 68 mm[Hg] Blanco Chavez MD Work Phone: [facility] 04-14-2024 10:10-0500 Heart rate 99 /min Blanco Chavez MD Work Phone: [facility] 04-14-2024 10:10-0500 Respiratory rate 22 /min Blanco Chavez MD Work Phone: [facility] 04-14-2024 10:10-0500 SaO2% (BldA) [Mass fraction] 98 % Blanco Chavez MD Work Phone: [facility] 04-14-2024 10:10-0500 Systolic blood pressure 124 mm[Hg] Blanco Chavez MD Work Phone: [facility] 03-10-2024 09:35-0400 Body height 165.1 cm Blanco Chavez MD Work Phone: [facility] 03-10-2024 09:35-0400 Body mass index (BMI) [Ratio] 31.12 kg/m2 Blanco Chavez MD Work Phone: [facility] 03-10-2024 09:35-0400 Body temperature 97.3 [degF] Blanco Chavez MD Work Phone: [facility] 03-10-2024 09:35-0400 Body weight 84.82 kg Blanco Chavez MD Work Phone: [facility] 03-10-2024 09:35-0400 Diastolic blood pressure 72 mm[Hg] Blanco Chavez MD Work Phone: [facility] 03-10-2024 09:35-0400 Heart rate 94 /min Blanco Chavez MD Work Phone: [facility] 03-10-2024 09:35-0400 Respiratory rate 20 /min Blanco Chavez MD Work Phone: [facility] 03-10-2024 09:35-0400 SaO2% (BldA) [Mass fraction] 98 % Blanco Chavez MD Work Phone: [facility] 03-10-2024 09:35-0400 Systolic blood pressure 130 mm[Hg] Blanco Chavez MD Work Phone: [facility] 02-18-2024 14:54-0400 Body mass index (BMI) [Ratio] 31.09 kg/m2 Renetta Cabrera MD Work Phone: [facility] 02-18-2024 14:54-0400 Body weight 84.73 kg Renetta Cabrera MD Work Phone: [facility] 02-18-2024 14:54-0400 Diastolic blood pressure 90 mm[Hg] Renetta Cabrera MD Work Phone: [facility] 02-18-2024 14:54-0400 Heart rate 86 /min Renetta Cabrera MD Work Phone: [facility] 02-18-2024 14:54-0400 Systolic blood pressure 135 mm[Hg] Renetta Cabrera MD Work Phone: [facility] 01-23-2024 11:10-0400 Body height 165.1 cm Blanco Chavez MD Work Phone: [facility] 01-23-2024 11:10-0400 Body mass index (BMI) [Ratio] 31.45 kg/m2 Blanco Chavez MD Work Phone: [facility] 01-23-2024 11:10-0400 Body temperature 97.81 [degF] Blanco Chavez MD Work Phone: [facility] 01-23-2024 11:10-0400 Body weight 85.73 kg Blanco Chavez MD Work Phone: [facility] 01-23-2024 11:10-0400 Diastolic blood pressure 78 mm[Hg] Blanco Chavez MD Work Phone: [facility] 01-23-2024 11:10-0400 Heart rate 99 /min Blanco Chavez MD Work Phone: [facility] 01-23-2024 11:10-0400 Respiratory rate 18 /min Blanco Chavez MD Work Phone: [facility] 01-23-2024 11:10-0400 SaO2% (BldA) [Mass fraction] 99 % Blanco Chavez MD Work Phone: [facility] 01-23-2024 11:10-0400 Systolic blood pressure 124 mm[Hg] Blanco Chavez MD Work Phone: [facility] 01-02-2024 08:34-0400 Body height 165.1 cm Blanco Chavez MD Work Phone: [facility] 01-02-2024 08:34-0400 Body mass index (BMI) [Ratio] 31.95 kg/m2 Blanco Chavez MD Work Phone: [facility] 01-02-2024 08:34-0400 Body temperature 97.5 [degF] Blanco Chavez MD Work Phone: [facility] 01-02-2024 08:34-0400 Body weight 87.09 kg Blanco Chavez MD Work Phone: [facility] 01-02-2024 08:34-0400 Diastolic blood pressure 70 mm[Hg] Blanco Chavez MD Work Phone: [facility] 01-02-2024 08:34-0400 Heart rate 84 /min Blanco Chavez MD Work Phone: [facility] 01-02-2024 08:34-0400 Respiratory rate 16 /min Blanco Chavez MD Work Phone: [facility] 01-02-2024 08:34-0400 SaO2% (BldA) [Mass fraction] 98 % Blanco Chavez MD Work Phone: [facility] 01-02-2024 08:34-0400 Systolic blood pressure 118 mm[Hg] Blanco Chavez MD Work Phone: [facility] 01-01-2024 13:59-0400 Body height 165.1 cm Ankit Steve DO Work Phone: [facility] 01-01-2024 13:59-0400 Body mass index (BMI) [Ratio] 31.78 kg/m2 Anikt Steve DO Work Phone: [facility] 01-01-2024 13:59-0400 Body weight 86.64 kg Ankit Steve DO Work Phone: [facility] 01-01-2024 13:59-0400 Diastolic blood pressure 74 mm[Hg] Ankit Steve DO Work Phone: [facility] 01-01-2024 13:59-0400 Systolic blood pressure 120 mm[Hg] Ankit Steve DO Work Phone: [facility] 11-30-2023 11:53-0400 Body height 165.1 cm Denablair Fernandez ACUTE CARE PHYSICAL THERAPIST-PERFORMANCE TEST ENGINEER Work Phone: [facility] 11-30-2023 11:53-0400 Body mass index (BMI) [Ratio] 31.5 kg/m2 Denablair Fernandez ACUTE CARE PHYSICAL THERAPIST-PERFORMANCE TEST ENGINEER Work Phone: [facility] 11-30-2023 11:53-0400 Body weight 85.87 kg Denablair Fernandez ACUTE CARE PHYSICAL THERAPIST-PERFORMANCE TEST ENGINEER Work Phone: [facility] 11-30-2023 11:53-0400 Diastolic blood pressure 82 mm[Hg] Denablair Fernandez ACUTE CARE PHYSICAL THERAPIST-PERFORMANCE TEST ENGINEER Work Phone: [facility] 11-30-2023 11:53-0400 Heart rate 70 /min Denablair Fernandez ACUTE CARE PHYSICAL THERAPIST-PERFORMANCE TEST ENGINEER Work Phone: [facility] 11-30-2023 11:53-0400 SaO2% (BldA) [Mass fraction] 98 % Denablair Fernandez ACUTE CARE PHYSICAL THERAPIST-PERFORMANCE TEST ENGINEER Work Phone: [facility] 11-30-2023 11:53-0400 Systolic blood pressure 137 mm[Hg] Dena Fernandez ACUTE CARE PHYSICAL THERAPIST-PERFORMANCE TEST ENGINEER Work Phone: [facility] 10-17-2023 13:15-0400 Body mass index (BMI) [Ratio] 31.15 kg/m2 Davina Torresy ACUTE CARE PHYSICAL THERAPIST-PERFORMANCE TEST ENGINEER Work Phone: [facility] 10-17-2023 13:15-0400 Body weight 84.91 kg Davina Torresy ACUTE CARE PHYSICAL THERAPIST-PERFORMANCE TEST ENGINEER Work Phone: [facility] 10-17-2023 13:15-0400 Diastolic blood pressure 98 mm[Hg] Davina Torresy ACUTE CARE PHYSICAL THERAPIST-PERFORMANCE TEST ENGINEER Work Phone: [facility] 10-17-2023 13:15-0400 Heart rate 74 /min Davina Torresy ACUTE CARE PHYSICAL THERAPIST-PERFORMANCE TEST ENGINEER Work Phone: [facility] 10-17-2023 13:15-0400 Systolic blood pressure 152 mm[Hg] Davina Rosales JOURDAN Work Phone: [facility] 07-17-2023 09:07-0500 Body height 165.1 cm Renetta Cabrera MD Work Phone: [facility] 07-17-2023 09:07-0500 Body mass index (BMI) [Ratio] 31.12 kg/m2 Renetta Cabrera MD Work Phone: [facility] 07-17-2023 09:07-0500 Body weight 84.82 kg Renetta Cabrera MD Work Phone: [facility] 07-17-2023 09:07-0500 Diastolic blood pressure 79 mm[Hg] Renetta Cabrera MD Work Phone: [facility] 07-17-2023 09:07-0500 Heart rate 85 /min Renetta Cabrera MD Work Phone: [facility] 07-17-2023 09:07-0500 Systolic blood pressure 129 mm[Hg] Renetta Cabrera MD Work Phone: [facility] 07-11-2023 12:49-0500 Body height 165.1 cm Amanda Verhoff PA-C Work Phone: [facility] 07-11-2023 12:49-0500 Body mass index (BMI) [Ratio] 31.28 kg/m2 Amanda Verhoff PA-C Work Phone: [facility] 07-11-2023 12:49-0500 Body weight 85.28 kg Amanda Verhoff PA-C Work Phone: [facility] 07-11-2023 12:49-0500 Diastolic blood pressure 94 mm[Hg] Amanda Verhoff PA-C Work Phone: [facility] 07-11-2023 12:49-0500 Heart rate 74 /min [facility]-C [facility] 07-11-2023 12:49-0500 SaO2% (BldA) [Mass fraction] 100 % Amanda [facility]hoff PA-C [facility] 07-11-2023 12:49-0500 Systolic blood pressure 146 mm[Hg] Amanda Verhoff PA-C Work Phone: [facility] 05-16-2023 10:33-0500 Body height 165.1 cm Denablair Walkergel ACUTE CARE PHYSICAL THERAPIST-PERFORMANCE TEST ENGINEER Work Phone: [facility] 05-16-2023 10:33-0500 Body mass index (BMI) [Ratio] 31.12 kg/m2 Dena Kregel ACUTE CARE PHYSICAL THERAPIST-PERFORMANCE TEST ENGINEER Work Phone: [facility] [email or web address] 05-16-2023 10:33-0500 Body weight 84.82 kg Dena Kregel ACUTE CARE PHYSICAL THERAPIST-PERFORMANCE TEST ENGINEER Work Phone: [facility] [email or web address] 05-16-2023 10:33-0500 Diastolic blood pressure 86 mm[Hg] Dena Kregel ACUTE CARE PHYSICAL THERAPIST-PERFORMANCE TEST ENGINEER Work Phone: [facility] 05-16-2023 10:33-0500 Heart rate 74 /min Dena Kregel ACUTE CARE PHYSICAL THERAPIST-PERFORMANCE TEST ENGINEER Work Phone: [facility] 05-16-2023 10:33-0500 SaO2% (BldA) [Mass fraction] 99 % Dena Kregel ACUTE CARE PHYSICAL THERAPIST-PERFORMANCE TEST ENGINEER [facility] 05-16-2023 10:33-0500 Systolic blood pressure 131 mm[Hg] Dena Kregel ACUTE CARE PHYSICAL THERAPIST-PERFORMANCE TEST ENGINEER Work Phone: [facility] 09-25-2021 11:55-0400 Body height 165.1 cm Lavern Kelsey [employer] Other 09-25-2021 11:55-0400 Body mass index (BMI) [Ratio] 33.61 kg/m2 Lavern Kelsey [employer] Other 09-25-2021 11:55-0400 Body temperature 97.4 [degF] Lavern Kelsey [employer] Other 09-25-2021 11:55-0400 Body weight 91.63 kg Lavern Kelsey [employer] Other 09-25-2021 11:55-0400 SaO2% (BldA) [Mass fraction] 96 % Lavern Kelsey [employer] Other Encounters Encounter Date Encounter Type Care Provider Facility Start: 01-07-2025 End: 01-07-2025 Bamboo flowsheet Ankit Steve DO Work Phone: [facility] Start: 01-07-2025 End: 01-07-2025 Bamboo flowsheet Ankit Steve DO Work Phone: [facility] Start: 01-07-2025 End: 01-07-2025 Patient encounter procedure Ankit Steve DO Work Phone: [facility] Start: 01-07-2025 End: 01-07-2025 Periodic preventive med est patient 18-39 yrs Ankit Steve DO Work Phone: [facility] Comment on above: Well woman exam with routine gynecological exam; Vaginal discharge; Family history of breast cancer in mother Start: 12-26-2024 End: 12-26-2024 [facility] Start: 12-03-2024 End: 12-04-2024 Refill Irina Moreno MD Work Phone: Endocrinology Comment on above: Refill Request Start: 12-02-2024 End: 12-02-2024 Bamboo flowsheet Blanco Chavez MD Work Phone: [facility] Start: 12-02-2024 End: 12-02-2024 Bamboo flowsheet Blanco Chavez MD Work Phone: [facility] Start: 12-02-2024 End: 12-02-2024 Office outpatient visit 15 minutes Blanco Chavez MD Work Phone: [facility] Comment on above: Acute non-recurrent pansinusitis (Primary Dx); Type 2 diabetes mellitus with hyperglycemia, with long-term current use of insulin ([facility]) Start: 12-02-2024 End: 12-02-2024 ambulatory BLANCO CHAVEZ Not Available Start: 11-10-2024 End: 11-10-2024 [facility] Start: 11-07-2024 End: 11-07-2024 [facility] Start: 11-07-2024 End: 11-07-2024 [facility] CARE PHYSICAL THERAPIST-PERFORMANCE TEST ENGINEER Work Phone: [facility] Comment on above: BUTCH (obstructive sle ep apnea) (Primary Dx); Mild intermittent asthma without complication; Ooccd-1-uhjjhazpfpw deficiency ([facility] CPAP use counseling; BMI 30.0-30.9,adult; Obesity, Class I, BMI 30-34.9 Start: 11-07-2024 End: 11-07-[address] [facility] Start: 11-02-2024 End: 11-03-2024 Refill Davina Rosales ACUTE CARE PHYSICAL THERAPIST-PERFORMANCE TEST ENGINEER Work Phone: [facility] Comment on above: Type 2 diabetes randy itus with hyperglycemia, with long-term current use of insulin ([facility]) Start: 10-17-2024 End: 10-17-2024 ambulatory BLANCO CHAVEZ [facility] Start: 10-15-2024 End: 10-15-2024 Bamboo flowsheet Blanco Chavez MD Work Phone: [facility] Start: 10-15-2024 End: 10-15-2024 Bamboo flowsheet Blanco Chavez MD Work Phone: [facility] Start: 10-15-2024 End: 10-15-2024 Office outpatient visit 25 minutes Blanco Chavez MD Work Phone: [facility] Comment on above: Benign essential hyp ertension (CMS/HCC) (Primary Dx); Postural orthostatic tachycardia syndrome (POTS); Generalized abdominal pain; ISAAC (generalized anxiety disorder) (CMS/HCC); GERD without esophagitis; Seasonal allergic rhinitis due to pollen Start: 10-15-2024 End: 10-15-2024 ambulatory BLANCO CHAVEZ Not Available Start: 09-19-2024 End: 09-19-2024 Patient encounter procedure Irina Moreno MD Work Phone: Endocrinology Comment on above: Type 2 diabetes randy itus without complication, without long- term current use of insulin (HCC) (Primary Dx); Juvenile hypophosphatasia; Insulin pump status; PCOS (polycystic ovarian syndrome) Start: 09-19-2024 End: 09-19-2024 ambulatory IRINA MORENO Facility:[facility] Start: 09-09-2024 End: 09-09-2024 Telephone encounter Vale Gonsalves MD Work Phone: [facility] Comment on above: OTHER Start: 08-20-2024 End: 08-22-2024 Telephone encounter Irian Moreno MD Work Phone: Endocrinology Comment on above: Results (Retroperito ethan Ultrasound) Results Start: 08-19-2024 End: 08-19-2024 Telephone encounter Roxi Palafox RN Diabetic Education [facility] Comment on above: Glucagon order Start: 08-18-2024 End: 08-18-2024 ambulatory [facility] Start: 08-15-2024 End: 08-15-2024 Office outpatient new 30 minutes Vale Gonsalves MD Work Phone: [facility] Comment on above: Sensation of fullnes s in both ears (Primary Dx); Seasonal allergic rhinitis due to pollen; Bruxism; Dizziness Start: 08-15-2024 End: 08-15-2024 [facility] Comment on above: Bilateral tinnitus ( Primary Dx); Sensation of fullness in ear, bilateral Start: 08-13-2024 End: 08-13-2024 ambulatory [facility] Start: 07-11-2024 End: 07-11-2024 Refill Irina Moreno MD Work Phone: Endocrinology Comment on above: Med Change Request Start: 07-11-2024 End: 07-11-2024 ambulatory Irina Moreno MD Work Phone: Endocrinology Comment on above: Juvenile hypophospha veronica (Primary Dx); Excessive bleeding in premenopausal period; Type 2 diabetes mellitus without complication, without long-term current use of insulin (HCC); Insulin pump status Start: 07-11-2024 End: 07-11-2024 Telemedicine consultation with patient Irina Moreno MD Work Phone: Endocrinology Start: 07-04-2024 End: 07-04-2024 Bambogaby flowsyudelka Chavez MD Work Phone: [facility] Start: 07-04-2024 End: 07-04-2024 Nigel Chavez MD Work Phone: [facility] Start: 07-04-2024 End: 07-04-2024 ambulatory BLANCO CHAVEZ [facility] Start: 07-04-2024 End: 07-04-2024 ambulatory BLANCO CHAVEZ Not Available Start: 07-04-2024 End: 07-04-2024 Office outpatient visit 15 minutes Blanco Chavez MD Work Phone: [facility] Comment on above: Generalized abdomina l pain (Primary Dx) Start: 06-25-2024 End: 06-25-2024 ambulatory Irina Moreno MD Work Phone: Endocrinology Comment on above: Thryiod meds Start: 06-25-2024 End: 06-25-2024 Nursing evaluation of patient and report Roxi Palafox RN Diabetic Education [facility] Comment on above: Type 2 diabetes randy itus without complication, without long- term current use of insulin ([facility]) Start: 06-17-2024 End: 06-17-2024 Telephone encounter Roxi Palafox RN Diabetic Education [facility] Comment on above: No Show Start: 06-11-2024 End: 06-11-2024 Bamboo flowsheet Blanco Chavez MD Work Phone: [facility] Start: 06-11-2024 End: 06-11-2024 Bamboo flowsheet Blanco Chavez MD Work Phone: [facility] Start: 06-11-2024 End: 06-11-2024 ambulatory BLANCO CHAVEZ Not Available Start: 06-11-2024 End: 06-11-2024 Office outpatient visit 15 minutes Blanco Chavez MD Work Phone: [facility] Comment on above: Dysuria (Primary Dx) ; Type 2 diabetes mellitus with hyperglycemia, with long-term current use of insulin ([facility]) Start: 06-03-2024 End: 06-03-2024 Telephone encounter Shakira Cerrato CMA [facility] Start: 06-02-2024 End: 06-02-2024 Telephone encounter Florecita JAIN [facility] Start: 05-31-2024 End: 05-31-2024 Emergency department patient visit BLANCO CHAVEZ [facility] Start: 05-30-2024 End: 06-01-2024 ambulatory Irina Moreno MD Work Phone: Endocrinology Comment on above: High blood sugar Start: 05-29-2024 End: 05-29-2024 Refill Davina Rosales ACUTE CARE PHYSICAL THERAPIST-PERFORMANCE TEST ENGINEER Work Phone: [facility] Comment on above: Mixed hyperlipidemia Start: 05-23-2024 End: 05-23-2024 Telephone encounter Irina Moreno MD Work Phone: Endocrinology Start: 05-22-2024 End: 05-22-2024 ambulatory IRINA MORENO Facility:[facility] Start: 05-22-2024 End: 05-22-2024 Patient encounter procedure Irina Moreno MD Work Phone: Endocrinology Comment on above: Type 2 diabetes randy itus without complication, without long- term current use of insulin (HCC) (Primary Dx); Excessive bleeding in premenopausal period; PCOS (polycystic ovarian syndrome); Juvenile hypophosphatasia Start: 05-19-2024 End: 05-19-2024 Bamboo flowsheet Blanco Chavez MD Work Phone: [facility] Start: 05-19-2024 End: 05-19-2024 Bamboo flowsheet Blnaco Chavez MD Work Phone: [facility] Start: 05-19-2024 End: 05-19-2024 Office outpatient visit 15 minutes Blanco Chavez MD Work Phone: [facility] Comment on above: Acute non-recurrent pansinusitis (Primary Dx); GERD without esophagitis Start: 05-19-2024 End: 05-19-2024 ambulatory BLANCO CHAVEZ Not Available Start: 04-21-2024 End: 05-21-2024 ambulatory Irina Moreno MD Work Phone: Endocrinology Comment on above: Juvenile hypophospha veronica (Primary Dx); Type 2 diabetes mellitus without complication, without long-term current use of insulin (HCC); PCOS (polycystic ovarian syndrome) fellow up Start: 04-21-2024 End: 04-21-2024 Telemedicine consultation with patient Irina Moreno MD Work Phone: Endocrinology Start: 04-14-2024 End: 04-14-2024 Bamboo flowsheet Blanco Chavez MD Work Phone: [facility] Start: 04-14-2024 End: 04-14-2024 Bamboo flowsheet Blanco Chavez MD Work Phone: [facility] Start: 04-14-2024 End: 04-14-2024 ambulatory BLANCO CHAVEZ Not Available Start: 04-14-2024 End: 04-14-2024 Office outpatient visit 25 minutes Blanco Chavez MD Work Phone: [facility] Comment on above: Benign essential hyp ertension (CMS/HCC) (Primary Dx); ISAAC (generalized anxiety disorder) (CMS/HCC); GERD without esophagitis; Postural orthostatic tachycardia syndrome (POTS); Chronic rhinosinusitis; Type 2 diabetes mellitus with hyperglycemia, with long-term current use of insulin (CMS/HCC) Start: 03-13-2024 End: 03-13-2024 Emergency department patient visit BLANCO CHAVEZ [facility] Start: 03-10-2024 End: 03-10-2024 Bamboo flowsheet Blanco Chavez MD Work Phone: [facility] Start: 03-10-2024 End: 03-10-2024 Bamboo flowsheet Blanco Chavez MD Work Phone: [facility] Start: 03-10-2024 End: 03-10-2024 Office outpatient visit 15 minutes Blanco Chavez MD Work Phone: [facility] Comment on above: Chronic rhinosinusit is (Primary Dx) Start: 03-10-2024 End: 03-10-2024 ambulatory BLANCO CHAVEZ Not Available Start: 03-07-2024 End: 03-07-2024 Bamboo flowsheet Matteo Pandey GUEST SERVICE TEAM LEADER [facility] Start: 03-07-2024 End: 03-07-2024 Bamboo flowsheet Matteo Pandey GUEST SERVICE TEAM LEADER [facility] Start: 03-07-2024 End: 03-07-2024 ambulatory MATTEO PANDEY Not Available Start: 02-22-2024 End: 02-22-2024 Bamboo flowsheet Matteo Pandey GUEST SERVICE TEAM LEADER [facility] Start: 02-22-2024 End: 02-22-2024 Bamboo flowsheet Matteo Pandey GUEST SERVICE TEAM LEADER [facility] Start: 02-22-2024 End: 02-22-2024 ambulatory MATTEO PANDEY Not Available Start: 02-19-2024 End: 02-19-2024 Refill Renetta Cabrera MD Work Phone: [facility] Comment on above: Type 2 diabetes randy itus with hyperglycemia, with long-term current use of insulin ([facility]) Start: 02-18-2024 End: 02-18-2024 Office outpatient visit 25 minutes Renetta Cabrera MD Work Phone: [facility] Comment on above: Type 2 diabetes randy itus with hyperglycemia, with long-term current use of insulin ([facility]) (Primary Dx); 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; Hypophosphatasia; Benign hypertension; H/O tubal ligation Start: 02-18-2024 End: 02-18-2024 ambulatory [facility] Start: 02-14-2024 End: 02-14-2024 ambulatory MATTEO PANDEY Not Available Start: 02-14-2024 End: 02-14-2024 Bamboo flowsheet Matteo Pandey GUEST SERVICE TEAM LEADER [facility] Start: 02-14-2024 End: 02-14-2024 Bamboo flowsheet Matteo Pandey GUEST SERVICE TEAM LEADER [facility] Start: 01-31-2024 ambulatory FABIOLA aponte [facility] Start: 01-25-2024 End: 01-25-2024 ambulatory [facility] Work Phone: Start: 01-25-2024 End: 01-25-2024 Patient encounter procedure [facility] Work Phone: Start: 01-23-2024 End: 01-23-2024 Bamboo flowsheet Blanco Chavez MD Work Phone: [facility] Start: 01-23-2024 End: 01-23-2024 Bamboo flowsheet Blanco Chavez MD Work Phone: [facility] Start: 01-23-2024 End: 01-23-2024 Office outpatient visit 25 minutes Blanco Chavez MD Work Phone: [facility] Comment on above: Allergic reaction to bee sting (Primary Dx); Type 2 diabetes mellitus with hyperglycemia, with long-term current use of insulin (CMS/HCC); Postural orthostatic tachycardia syndrome (POTS); GERD without esophagitis Start: 01-23-2024 End: 01-23-2024 ambulatory BLANCO CHAVEZ Not Available Start: 01-18-2024 End: 01-18-2024 ambulatory MATTEO PANDEY Not Available Start: 01-12-2024 End: 01-12-2024 Emergency department patient visit BLANCO [facility] Start: 01-12-2024 End: 01-12-2024 Emergency department patient visit [facility] Start: 01-11-2024 End: 01-11-2024 Telephone encounter Lavern Parks RN Work Phone: [facility] Start: 01-08-2024 End: 01-08-2024 Telephone encounter Matteo Pandey GUEST SERVICE TEAM LEADER [facility] Comment on above: couseling appt Start: 01-02-2024 End: 01-02-2024 ambulatory [facility] Start: 01-02-2024 End: 01-02-2024 Office outpatient visit 25 minutes Blanco Chavez MD Work Phone: [facility] Comment on above: ISAAC (generalized anx iety disorder) (CMS/HCC) (Primary Dx); Chronic rhinosinusitis; Type 2 diabetes mellitus with polyneuropathy (CMS/HCC); Type 2 diabetes mellitus with hyperglycemia, with long-term current use of insulin (CMS/HCC); Type 2 diabetes mellitus with other specified complication (CMS/HCC); Hyperlipidemia, unspecified (CMS/HCC) Start: 01-02-2024 End: 01-02-2024 ambulatory BLANCO CHAVEZ Not Available Start: 01-01-2024 End: 01-01-2024 Bamboo flowsheet Ankit Wilson DO Work Phone: [facility] Start: 01-01-2024 End: 01-05-2024 Bamboo flowsheet Ankit Goldo DO Work Phone: [facility] Start: 01-01-2024 End: 01-05-2024 Clinisync Result Encounter Generic External Data Provider [facility] External Department Unsolicited Start: 01-01-2024 End: 01-01-2024 Patient encounter procedure Ankit Goldo DO Work Phone: [facility] Work Phone: Start: 01-01-2024 End: 01-01-2024 Periodic preventive med est patient 18-39 yrs Ankit Goldo DO Work Phone: [facility] Comment on above: Well woman exam with routine gynecological exam Start: 01-01-2024 End: 01-01-2024 ambulatory ANKIT GOLDO Not Available Start: 12-24-2023 End: 12-24-2023 Orders Only Luna Phillip LPN [facility] Comment on above: Irregular menses (Pr imary Dx); 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 Start: 12-19-2023 End: 12-19-2023 ambulatory ANKIT R [facility] Start: 12-18-2023 End: 12-18-2023 ambulatory ANKIT GOLDO Not Available Start: 12-17-2023 End: 12-17-2023 ambulatory PIETER VARGAS Not Available Start: 12-12-2023 End: 12-12-2023 [facility]phone [facility] Start: 12-03-2023 End: 12-03-2023 ambulatory [facility] R [facility] Start: 11-30-2023 End: 11-30-2023 Office outpatient visit 25 minutes Dena Fernandez ACUTE CARE PHYSICAL THERAPIST-PERFORMANCE TEST ENGINEER Work Phone: [facility] Comment on above: BUTCH (obstructive sle ep apnea) (Primary Dx); Mild intermittent asthma without complication Start: 11-30-2023 End: 11-30-2023 ambulatory DENABLAIR FERNANDEZ [facility] Start: 11-26-2023 End: 11-27-2023 Refill Renetta Cabrera MD Work Phone: [facility] Start: 10-17-2023 End: 10-17-2023 Office outpatient visit 25 minutes Davina SLOIMAN Work Phone: [facility] Endocrinology Comment on above: Type 2 diabetes randy itus with hyperglycemia, with long-term current use of insulin ([facility]) (Primary Dx); 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 Start: 09-05-2023 End: 09-05-2023 ambulatory Zahraa Kate Facility:[facility] Start: 09-05-2023 End: 09-05-2023 Patient encounter procedure Zahraa Kate [facility] Start: 09-04-2023 End: 01-12-2024 ambulatory Pieter Vargas Facility:[facility] Start: 08-22-2023 ambulatory Zahraa Kate Facility :[facility] Start: 08-15-2023 End: 08-15-2023 ambulatory FABIOLA [facility] Start: 08-07-2023 End: 08-07-2023 ambulatory Zahraa Kate Facility:[facility] Start: 08-07-2023 End: 08-07-2023 Patient encounter procedure Zahraa L Kate [facility] Start: 07-17-2023 Telephone encounter Rosa Catalan Adult [facility] Start: 07-17-2023 End: 07-17-2023 Office outpatient visit 25 minutes Renetta Cabrera MD Work Phone: [facility] Comment on above: Type 2 diabetes randy itus with hyperglycemia, with long-term current use of insulin ([facility]) (Primary Dx); At risk for bone density loss; Other specified disorders of bone density and structure, other site; Hypophosphatasia; 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; Nodular goiter; Primary hypothyroidism; Mixed hyperlipidemia Start: 07-11-2023 End: 07-11-2023 Office outpatient new 45 minutes Amanda Simpson PA-C Work Phone: [facility] Comment on above: Lumbar spondylosis ( Primary Dx); Disorder of sacrum; Lumbar radiculopathy Start: 07-03-2023 Telephone encounter Florecita Kirk [facility] Start: 06-26-2023 ambulatory Zahraa Kate Facility :[facility] Start: 05-29-2023 End: 05-29-2023 ambulatory Zahraa Kate Facility:[facility] Start: 05-29-2023 End: 05-29-2023 Patient encounter procedure Zahraa Kate [facility] Start: 05-22-2023 ambulatory Zahraa Kate Facility :[facility] Comment on above: Type 2 diabetes randy itus with hyperglycemia, with long-term current use of insulin ([facility]); 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 Start: 05-22-2023 End: 05-22-2023 Patient encounter procedure Zahraaalfredo Kate [facility] Start: 05-18-2023 Refill Davina Rosales ACUTE CARE PHYSICAL THERAPIST-PERFORMANCE TEST ENGINEER Work Phone: [facility] Comment on above: Mixed hyperlipidemia ; Type 2 diabetes mellitus with hyperglycemia, with long-term current use of insulin ([facility]) Start: 05-16-2023 End: 05-16-2023 Office outpatient visit 25 minutes Dena Fernandez ACUTE CARE PHYSICAL THERAPIST-PERFORMANCE TEST ENGINEER Work Phone: [facility] Comment on above: BUTCH (obstructive sle ep apnea) (Primary Dx); Wzajg-3-fuuehjzugmy deficiency ([facility]); Mild intermittent asthma without complication; Class 1 obesity with body mass index (BMI) of 31.0 to 31.9 in adult, unspecified obesity type, unspecified whether serious comorbidity present; CPAP use counseling Start: 04-30-2023 End: 04-30-2023 ambulatory Zahraa Kate Facility:[facility] Start: 04-30-2023 End: 04-30-2023 Patient encounter procedure Zahraa Kate [facility] Start: 04-24-2023 End: 09-11-2023 ambulatory BLANCO CHAVEZ Facility:[facility] Start: 04-17-2023 End: 05-10-2023 ambulatory BLANCO CHAVEZ Facility:[facility] Start: 04-17-2023 End: 05-10-2023 Patient encounter procedure BLANCO CHAVEZ [facility] Start: 04-10-2023 ambulatory Zahraa Kate Facility :[facility] Start: 03-29-2023 End: 03-30-2023 Pre-admission assessment BLANCO CHAVEZ [facility] Start: 03-27-2023 ambulatory Zahraa Kate Facility :[facility] Start: 03-20-2023 End: 03-20-2023 ambulatory Zahraa Kaet Facility:[facility] Start: 03-20-2023 End: 03-20-2023 Patient encounter procedure Zahraa Rodrigue Kate [facility] Start: 02-20-2023 End: 02-20-2023 ambulatory Zahraa Kate Facility:[facility] Start: 02-06-2023 End: 02-06-2023 ambulatory Zahraa Rodrigue Kate Facility:[facility] Start: 01-24-2023 ambulatory Art Scott acility:[facility] Start: 01-17-2023 ambulatory Zahraa Kate Facility:[facility] Start: 01-16-2023 End: 01-16-2023 Patient encounter procedure Zahraa Rodrigue Kate [facility] Start: 03-02-2022 End: 03-02-[address] BLANCO CHAVEZ Facility:[facility] Start: 12-29-2021 End: 12-30-[address] ANKIT WILSON Facility:[facility] Start: 12-12-2021 End: 12-12-[address] ANKIT WILSON Facility:[facility] Start: 12-12-2021 End: 12-13-[address] ANKIT WILSON Facility:[facility] Start: 09-25-2021 End: 09-25-2021 ambulatory Lavern Kelsey Other [employer] Other Start: 09-25-2021 Office outpatient ne w 20 minutes Lavern Kelsey [facility] Start: 05-27-2021 End: 05-28-[address] ANKIT WILSON Facility:[facility] Start: 05-23-2021 End: 05-23-[address] ANKIT WILSON Facility:[facility] Start: 05-12-2021 End: 05-13-[address] [...] End: 09-12-2018 Patient encounter procedure PROVIDER UNKNOWN Facility:[facility] Start: 06-12-2018 End: 06-13-2018 Patient encounter procedure DEFAULT PHYSICIAN Facility:[facility] Start: 12-19-2017 End: 12-20-2017 Patient encounter procedure PROVIDER UNKNOWN Facility:[facility] Start: 12-07-2016 End: 12-07-2016 Emergency department patient visit [facility] Procedures Date Procedure Procedure Detail Performing Clinician Start: 09-19-2024 [facility] Start: 09-19-2024 Hemoglobin A1c/Hemoglobin.total in Blood Irina Moreno MD Work Phone: Start: 07-11-2024 [facility] [employer] [facility] [facility] Start: 06-11-2024 Urnls dip stick/tabl et rgnt non-auto w/o micrscp Blanco Chavez MD Work Phone: Start: 05-22-2024 [facility] [employer] [facility] [facility] Start: 05-22-2024 Hemoglobin A1c/Hemoglobin.total in Blood Irina Moreno MD Work Phone: Start: 03-07-2024 End: 03-07-2024 Psychotherapy w/patient 45 minutes PTSD (post-traumatic stress disorder) ([facility]) Matteo Pandey GUEST SERVICE TEAM LEADER Comment on above: PTSD (post-traumatic stress disorder) ([facility]); Attention deficit hyperactivity disorder (ADHD), combined type ([facility]) Start: 02-22-2024 End: 02-22-2024 Psychotherapy w/patient 60 minutes Radiculopathy of cervical region Matteo Pandey GUEST SERVICE TEAM LEADER Comment on above: Radiculopathy of cer vical region; Cervical dystonia; Diabetic autonomic neuropathy associated with type 2 diabetes mellitus ([facility]); Fibromyalgia; Lumbar radiculopathy; PTSD (post-traumatic stress disorder) ([facility]); Attention deficit hyperactivity disorder (ADHD), combined type ([facility]) Start: 02-18-2024 Hemoglobin glycosyla faiza a1c Renetta Cabrera MD Work Phone: Start: 02-14-2024 End: 02-14-2024 Psychotherapy w/patient 60 minutes PTSD (post-traumatic stress disorder) ([facility]) Matteo Pandey GUEST SERVICE TEAM LEADER Comment on above: PTSD (post-traumatic stress disorder) ([facility]) Start: 01-18-2024 End: 01-18-2024 Psychiatric diagnostic evaluation PTSD (post-traumatic stress disorder) ([facility]) Matteo Pandey GUEST SERVICE TEAM LEADER Comment on above: PTSD (post-traumatic stress disorder) ([facility]) Start: 01-01-2024 IGP,APTIMA HPV,AGE GDLN [employer] Work Phone: Start: 01-01-2024 Microscopic observat ion [Identifier] in Cervix by Cyto stain [employer] Work Phone: Start: 01-01-2024 Cytp cerv/vag auto t hin layer prep mnl screen [employer] Work Phone: Start: 10-19-2023 Microalbumin [Mass/volume] in Urine by Test strip Renetta Cabrera MD Work Phone: Start: 10-17-2023 Gluc bld gluc mntr d ev cleared fda spec home use Davina Rosales ACUTE CARE PHYSICAL THERAPIST-PERFORMANCE TEST ENGINEER Work Phone: Start: 07-17-2023 Hemoglobin glycosyla faiza a1c Renetta Cabrera MD Work Phone: Start: 12-27-2022 Adult depression screening assessment Denablair Fernandez ACUTE CARE PHYSICAL THERAPIST-PERFORMANCE TEST ENGINEER Work Phone: Start: 12-27-2022 Microscopic observat ion [Identifier] in Cervix by Cyto stain Ankit Wilson DO Work Phone: Start: 12-26-2022 Microalbumin [Mass/volume] in Urine by Test strip Dena Kregel ACUTE CARE PHYSICAL THERAPIST-PERFORMANCE TEST ENGINEER Work Phone: section Zahraa Holm r Colonoscopy Zahraa Kate H/O: tubal ligation H/O tubal ligation Kavon Cabrera MD Work Phone: Tonsillectomy Zahraa Kate Plan of Treatment Date Care Activity Detail Author Start: 02-27-2031 DTaP,Tdap and Td Vaccines (8 - Td or Tdap) DTaP,Tdap and Td Vaccines (8 - Td or Tdap) [facility] Start: 02-27-2031 Urine microalbumin profile DTaP,Tdap,Td Vaccine (8 - Td or Tdap) [facility] Start: 12-31-2026 Screening for malign ant neoplasm of cervix [facility] Start: 01-12-2026 End: 01-12-2026 Patient encounter procedure 01/12/2026 2:00 PM EDT Procedure Visit VERONICA HERZOG [address] [place] [address] Ankit Wilson DO [address] [place] [address] VERONICA HERZOG Start: 01-07-2026 Medicare Annual Wellness (AWV) Medicare Annual Wellness (AWV) [facility] Start: 12-27-2025 Screening for malign ant neoplasm of cervix [facility] Start: 11-07-2025 Adult BMI Screening Adult BMI Screen ing [facility] Start: 11-07-2025 Tobacco Screening Tobacco Screening [facility] Start: 08-15-2025 Adult BMI Screening Adult BMI Screen ing [facility] Start: 05-31-2025 Adult BMI Screening Adult BMI Screen ing [facility] Start: 05-31-2025 Tobacco Screening Tobacco Screening [facility] Start: 05-22-2025 Hepatitis B surface antibody level LDL Cholesterol [facility] Start: 04-16-2025 End: 04-16-2025 Patient encounter procedure 04/16/2025 10:30 AM EST Office Visit [facility] [address] [place] [address] Blanco Chavez MD [address] [place] [address] [facility] Start: 03-23-2025 End: 03-23-2025 Patient encounter procedure 03/23/2025 12:20 PM EST Office Visit Endocrinology [address] [phone] Irina Moreno MD [address] [place], [place] [phone] 6 month follow up Endocrinology Comment on above: 6 month follow up Start: 03-22-2025 Hemoglobin A1c measurement [facility] Start: 03-13-2025 Adult BMI Screening Adult BMI Screen ing [facility] Start: 03-13-2025 Tobacco Screening Tobacco Screening [facility] Start: 02-17-2025 Adult BMI Screening Adult BMI Screen ing [facility] Start: 02-17-2025 Tobacco Screening Tobacco Screening [facility] Start: 02-11-2025 End: 02-11-2025 Patient encounter procedure 02/11/2025 1:45 PM EDT Office Visit [facility] [address] [place] [phone] Dena Fernandez, ACUTE CARE PHYSICAL THERAPIST-PERFORMANCE TEST ENGINEER [address] [facility], [address] [place] [address] [facility] Start: 01-28-2025 End: 01-28-2025 Patient encounter procedure 01/28/2025 9:00 AM EDT Office Visit VERONICA Zaavla [facility] [address] [place] [address] Saundra Bey, ACUTE CARE PHYSICAL THERAPIST-PERFORMANCE TEST ENGINEER [address] [facility] [place] [address] VERONICA Zavala [facility] Start: 01-15-2025 End: 01-15-2025 Clinical Support 01/15/2025 1:40 PM EDT Clinical Support VERONICA [place] OBNETO [address] [place] [address] [place] [address] [facility]ONICA [facility] Start: 01-12-2025 Influenza vaccination P [facility] Start: 01-07-2025 End: 03-09-2026 MG Breast - bilateral Screening Bilateral screening mammogram Imaging Routine Family history of breast cancer in mother Expected: 01/07/2025 (Approximate), Expires: 03/09/2026 [facility] Comment on above: Expected: 01/07/2025 (Approximate), Expires: 03/09/2026 Start: 01-07-2025 End: 01-07-2025 Patient encounter procedure [facility] Comment on above: Arrived Start: 12-31-2024 Medicare Annual Wellness (AWV) Medicare Annual Wellness (AWV) [facility] Start: 12-29-2024 End: 12-29-2024 Patient encounter procedure 12/29/2024 1:30 PM EDT Office Visit VERONICA MICHELLE [address] [place] [address] Allyssa Varner, MANAGER CONTRACT [address], [facility] [address] [facility] [place] [phone] [facility] Start: 12-08-2024 Tobacco Screening Tobacco Screening [facility] Start: 12-04-2024 End: 12-04-2024 Patient encounter procedure 12/04/2024 3:30 PM EDT Office Visit [facility] [address] [place] [phone] Maggie Beal MD [address] [address] [facility] Start: 12-02-2024 End: 12-02-2024 Patient encounter procedure 12/02/2024 10:30 AM EDT Office Visit [facility] [address] [place] [address] Blanco Chavez MD [address] [place] [address] Arrived [facility] Comment on above: Arrived Start: 11-29-2024 Adult BMI Screening Adult BMI Screen [facility] Start: 11-29-2024 Tobacco Screening Tobacco Screening [facility] Start: 11-21-2024 End: 11-21-2024 Patient encounter procedure 11/21/2024 10:10 AM EDT Office Visit [facility] [address] [facility] [address] [place] [address] Pieter Vargas MD [address] [facility] [address] [place] [address] [facility] Start: 11-19-2024 Hemoglobin A1c measurement [facility] Start: 11-07-2024 End: 11-07-2024 Patient encounter procedure 11/07/2024 10:30 AM EDT Office Visit [facility] [address] [place] [address] Dena Fernandez, ACUTE CARE PHYSICAL THERAPIST-PERFORMANCE TEST ENGINEER [address] [facility], [address] [place] [address] [facility] Start: 10-27-2024 End: 10-27-2024 Patient encounter procedure 10/27/2024 3:00 PM EDT Office Visit [facility] [address] [place] [phone] Salvatore Sow MD [address] [facility] [address] [place] [address] [facility] Start: 10-18-2024 Hepatitis B screening Urine Albumin:Creatinine Ratio [facility] Start: 10-18-2024 Urine screening for protein [facility] Start: 10-17-2024 End: 10-17-2024 Patient encounter procedure 10/17/2024 2:30 PM EDT Office Visit [facility] [address] [place] [address] Desmond Humphreys, [address] [facility] [address] [place] [address] [facility] Start: 10-16-2024 Adult BMI Screening Adult BMI Screen ing [facility] Start: 10-16-2024 Tobacco Screening Tobacco Screening [facility] Start: 10-15-2024 End: 10-15-2025 US Gallbladder US gallbladder Imaging Routine Generalized abdominal pain Expected: 10/15/2024, Expires: 10/15/2025 [facility] Work Phone: Comment on above: Expected: 10/15/2024 , Expires: 10/15/2025 Start: 10-15-2024 End: 10-15-2024 Patient encounter procedure 10/15/2024 9:30 AM EDT Office Visit [facility] [address] [place] [address] Blanco Chavez MD [address] [place] [address] Arrived [facility] Comment on above: Arrived Start: 10-14-2024 End: 10-14-2024 Patient encounter procedure 10/14/2024 9:00 AM EDT [facility] [address] [place] [address] Blanco Chavez MD [address] [place] [address] [facility] Start: 10-03-2024 End: 10-03-2024 Patient encounter procedure [facility] End[facility]ology, A Department of [facility] Start: 09-19-2024 End: 09-19-2024 Patient encounter procedure 09/19/2024 12:40 PM EDT Office Visit Endocrinology [address] [phone] Irina Moreno MD [address] [place] [address] September 19 ok to split per Endocrinology Comment on above: September 19 ok to split per Start: 08-18-2024 End: 08-18-2024 Patient encounter procedure 08/18/2024 10:30 AM EDT Appointment [facility] [address] [place] [address] [facility] Start: 08-14-2024 Glaucoma screening Diabetes: R etinopathy Screening [facility] Start: 07-23-2024 End: 07-23-2024 Patient encounter procedure 07/23/2024 12:00 PM EDT Office Visit Endocrinology [address] [place] [address] Irina Moreno MD [address] [place] [address] 2 month follow up-ok to split per [facility] Comment on above: 2 month follow up-ok to split per [facility] Start: 07-16-2024 Adult BMI Screening Adult BMI Screen ing [facility] Start: 07-16-2024 Tobacco Screening Tobacco Screening [facility] Start: 07-11-2024 Adult BMI Screening Adult BMI Screen ing [facility] Start: 07-11-2024 Tobacco Screening Tobacco Screening [facility] Start: 07-04-2024 End: 07-04-2025 XR Abdomen Supine and Lateral-decubitus XR abdomen 2 views supine and decubitus Imaging Routine Generalized abdominal pain Expected: 07/04/2024, Expires: 07/04/2025 [facility] Work Phone: Comment on above: Expected: 07/04/2024 , Expires: 07/04/2025 Start: 06-25-2024 End: 06-25-2024 Patient encounter procedure 06/25/2024 2:45 PM EST Office Visit [facility] [address] [place] [address] Greta Stephens, PA-C [address] [address] [facility] Start: 06-20-2024 Hemoglobin A1c measurement Diabetes: Hemoglobin A1C [facility] Start: 06-11-2024 End: 06-11-2025 URINARY TRACT INFECTION (HTRX) URINARY TRACT INFECTION (HTRX) Lab Routine Dysuria Expected: 06/11/2024 (Approximate), Expires: 06/11/2025 [facility] Work Phone: Comment on above: Expected: 06/11/2024 (Approximate), Expires: 06/11/2025 Start: 06-04-2024 End: 06-04-2024 Patient encounter procedure 06/04/2024 10:15 AM EST Office Visit [facility] [address] [place] [address] Dena Fernandez, ACUTE CARE PHYSICAL THERAPIST-PERFORMANCE TEST ENGINEER [address] [facility], [address] [place], [place] [phone] [facility] Start: 06-03-2024 End: 06-03-2024 Patient encounter [facility] Start: 05-22-2024 End: 08-21-2024 DHEA-S BLD [facility] Comment on above: Expected: 05/22/2024 , Expires: 08/21/2024 Start: 05-22-2024 End: 08-21-2024 Glutamate decarboxylase 65 Ab [Units/volume] in Serum [facility] Comment on above: Expected: 05/22/2024 , Expires: 08/21/2024 Start: 05-22-2024 End: 08-21-2024 LIPID PANEL, NONFASTING [facility] Comment on above: Expected: 05/22/2024 , Expires: 08/21/2024 Start: 05-22-2024 End: 08-21-2024 Pancreatic islet cell Ab [Titer] in Serum [facility] Comment on above: Expected: 05/22/2024 , Expires: 08/21/2024 Start: 05-22-2024 End: 08-21-2024 Renal function 2000 panel - Serum or Plasma [facility] Comment on above: Expected: 05/22/2024 , Expires: 08/21/2024 Start: 05-22-2024 End: 08-21-2024 TESTOSTERONE, BIOAVAILABLE AND TOTAL BY MS (ADULT FEMALES, CHILDREN, OR INDIVIDUALS ON TESTOSTERONE-SUPPRESSIN G THERAPY) [facility] Comment on above: Expected: 05/22/2024 , Expires: 08/21/2024 Start: 05-22-2024 End: 08-21-2024 Thyrotropin [Units/volume] in Serum or Plasma [facility] Comment on above: Expected: 05/22/2024 , Expires: 08/21/2024 Start: 05-22-2024 End: 05-22-2024 Patient encounter procedure 05/22/2024 12:00 PM EST Office Visit Endocrinology [address] [phone] Irina Moreno MD [address] [place] [address] hypophosphatasia. In person at F20. okay per Dr. Moreno Endocrinology Comment on above: hypophosphatasia. In person at F20. okay per Dr. Moreno Start: 05-19-2024 End: 05-19-2024 Patient encounter procedure 05/19/2024 1:45 PM EST Office Visit [facility] [address] [place] [address] Blanco Chavez MD [address] [place] [address] Arrived [facility] Comment on above: Arrived Start: 05-16-2024 Adult BMI Screening Adult BMI Screen ing [facility] Start: 05-16-2024 Tobacco Screening Tobacco Screening [facility] Start: 05-14-2024 Medicare Advantage Annual Wellness Visit Medicare Advantage Annual Wellness Visit [facility] Start: 04-14-2024 End: 04-14-2024 Patient encounter procedure 04/14/2024 10:00 AM EST Office Visit [facility] [address] [place] [address] Blanco Chavez MD [address] [place] [address] [facility] Start: 03-20-2024 Hemoglobin A1c measurement Diabetes: Hemoglobin A1C [facility] Start: 03-20-2024 End: 03-20-2024 Patient encounter procedure 03/20/2024 9:30 AM EST Office Visit [facility] [address] [place] [address] Pieter Vargas MD [address] [facility] [address] [place] [address] [facility] Start: 03-14-2024 End: 03-14-2024 Social Work 03/14/2024 2:00 PM EDT Social Work [facility] [address] [facility] [place] [address] Matteo Pandey LSW [facility] Start: 03-10-2024 End: 03-10-2024 Patient encounter procedure [facility] Comment on above: Arrived Start: 03-07-2024 End: 03-07-2024 Social Work 03/07/2024 11:00 AM EDT Social Work [facility] [address] [facility] [place] [address] Matteo Pandey LSW Arrived [facility] Comment on above: Arrived Start: 02-29-2024 End: 02-29-2024 Social Work 02/29/2024 3:00 PM EDT Social Work [facility] [address] [facility] [place] [address] Matteo Pandey LSW [facility] Start: 02-22-2024 End: 02-22-2024 Social Work [facility] Comment on above: Radiculopathy of cer vical region; Cervical dystonia; Diabetic autonomic neuropathy associated with type 2 diabetes mellitus (CMS/HCC); Fibromyalgia; Lumbar radiculopathy Start: 02-14-2024 End: 02-14-2024 Social Work 02/14/2024 4:00 PM EDT Social Work [facility] [address] [facility] [place] [address] Matteo Pandey LSW Arrived [facility] Comment on above: Arrived Start: 02-13-2024 End: 02-13-2024 Patient encounter procedure 02/13/2024 1:45 PM EDT Office Visit [facility] [address] [place] [phone] Renetta Cabrera MD [address] [place] [address] [facility] Start: 02-01-2024 End: 02-01-2024 Social Work 02/01/2024 2:00 PM EDT Social Work [facility] [address] [place] [address] Matteo Pandey LSW [facility] Start: 01-23-2024 End: 01-23-2024 Patient encounter procedure [facility] Comment on above: Arrived Start: 01-15-2024 End: 01-15-2024 Social Work 01/15/2024 3:00 PM EDT Social Work [facility] [address] [place] [address] Matteo Pandey LSW [facility] Start: 01-13-2024 COVID-19 Vaccine ( season) COVID-19 Vaccine ( season) [facility] Start: 01-13-2024 Covid-19 Vaccine ( season) Covid-19 Vaccine () [facility] Start: 01-13-2024 Influenza vaccination N [facility] Start: 01-07-2024 End: 01-07-2024 Telemedicine consultation with patient 01/07/2024 9:00 AM EDT Telemedicine [facility] [address] [facility] [address] [place] [address], [place] [phone] Tri Key, MANAGER CONTRACT [address] [place] [address], [place] [address] [facility] 210 Start: 01-02-2024 End: 01-02-2024 Patient encounter procedure 01/02/2024 8:15 AM EDT Office Visit [facility] [address] [place] [phone] Blanco Chavez MD [address] [place] [phone] [facility] Start: 01-01-2024 End: 01-01-2024 Patient encounter procedure 01/01/2024 2:00 PM EDT Office Visit [facility] [address] [address] Ankit Wilson DO [address] [place] [address] Arrived [facility] Comment on above: Arrived Start: 12-28-2023 Depression Screening Depression Scre ening [facility] Start: 12-28-2023 Medicare Annual Wellness (AWV) Medicare Annual Wellness (AWV) [facility] Start: 12-27-2023 Urine screening for protein Urine Microalbumin [facility] Start: 11-30-2023 End: 11-29-2024 XR Chest PA and Lateral X-ray chest 2 views Imaging Routine Mild intermittent asthma without complication Expected: 11/30/2023, Expires: 11/29/2024 [facility] Comment on above: Expected: 11/30/2023 , Expires: 11/29/2024 Start: 11-30-2023 End: 11-30-2023 Patient encounter procedure 11/30/2023 11:45 AM EDT Office Visit [facility] [address] [place] [address] Dena Fernandez, ACUTE CARE PHYSICAL THERAPIST-PERFORMANCE TEST ENGINEER [facility] [address] [address] [facility] Start: 10-17-2023 End: 10-17-2023 Patient encounter procedure 10/17/2023 1:00 PM EDT Office Visit [facility] [address] [place] [place] [phone] Davina Rosales, ACUTE CARE PHYSICAL THERAPIST-PERFORMANCE TEST ENGINEER [address] [place] [address] [facility] Start: 08-22-2023 End: 08-22-2023 Patient encounter procedure 08/22/2023 1:45 PM EDT Office Visit [facility] [address] [place] [phone] Amanda Simpson PA-C [address] [place] [address] [facility] Start: 08-15-2023 End: 08-15-2023 Patient encounter procedure 08/15/2023 10:15 AM EDT Office Visit [facility] [place] [address] Dena Fernandez, ACUTE CARE PHYSICAL THERAPIST-PERFORMANCE TEST ENGINEER [address] [facility], [address] [place] [phone] [facility] Start: 07-17-2023 End: 07-17-2023 Patient encounter procedure 07/17/2023 9:15 AM EST Office Visit [facility] [address] [place] [phone] Renetta Cabrera MD [address] [place] [address] [facility] Start: 07-11-2023 End: 07-11-2023 Patient encounter procedure 07/11/2023 1:00 PM EST Office Visit [facility] [address] [place] [phone] Amanda Simpson PA-C [address] [place] [address] [facility] Start: 05-22-2023 End: 05-22-2023 Patient encounter procedure 05/22/2023 9:30 AM EST Office Visit [facility] [address] [place] [phone] Renetta Cabrera MD [address] [facility] [place] [address] [facility] Start: 01-12-2023 COVID-19 Vaccine ( season) COVID-19 Vaccine ( season) [facility] Start: 2019 Screening for malign ant neoplasm of cervix HPV/Cot[facility] Start: 2010 Screening for malign ant neoplasm of cervix [facility] Start: 2008 Pneumococcal vaccination Pneumococcal Vaccine (1 of 2 - PCV) [facility] Start: 2007 Adult BMI Follow Up Plan Adult BMI Follow Up Plan [facility] Start: 2007 Annual 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 Disease Visit Annual PCP Team Chronic Disease Visit [facility] Start: 2007 Anxiety Screening Anxiety Screening [facility] Start: 2007 Depression Screening Depression Scre ening [facility] Start: 2007 Diabetic foot examination Diabetic Foot Exam [facility] Start: 2007 Hepatitis B surface antibody level LDL Cholesterol [facility] Start: 2007 Hepatitis C screening Hepatitis C Sc reening [facility] Start: 2007 HIV screening HIV Screening [facility] Start: 1999 Diabetic foot examination Diabetic Foot Exam [facility] Start: 1999 Glaucoma screening Dilated Retinal E xam [facility] Start: 1989 Glaucoma screening Diabetic Op hthalmology Exam [facility] End: 10-16-2024 CBC W Auto Differential panel - Blood CBC auto differential Lab Routine Type 2 diabetes mellitus with hyperglycemia, with long-term current use of insulin ([facility]) 1 Occurrences starting 10/17/2023 until 10/16/2024 [facility] Comment on above: 1 Occurrences starti ng 10/17/2023 until 10/16/2024 CHLAMYDIA TRACHOMATI S (GENITO/STI) CHLAMYDIA TRACHOMATIS (GENITO/STI) Lab Routine Vaginal discharge Ordered: 01/07/2025 [facility] Comment on above: Ordered: 01/07/2025 End: 10-16-2024 Comprehensive metabolic 2000 panel - Serum or Plasma Comprehensive metabolic panel Lab Routine Type 2 diabetes mellitus with hyperglycemia, with long-term current use of insulin ([facility]) 1 Occurrences starting 10/17/2023 until 10/16/2024 [employer] Work Phone: Comment on above: 1 Occurrences starti ng 10/17/2023 until 10/16/2024 Cytology Cervical or vaginal smear or scraping study Pap Smear Pathology and Cytology Routine Well woman exam with routine gynecological exam Ordered: 01/01/2024 [employer] [facility] Work Phone: Comment on above: Ordered: 01/01/2024 Cytology Cervical or vaginal smear or scraping study Pap Smear Pathology and Cytology Routine Well woman exam with routine gynecological exam Ordered: 01/07/2025 [employer] [facility] Work Phone: Comment on above: Ordered: 01/07/2025 End: 12-23-2024 FSH FSH Lab Routine Irregular menses 1 Occurrences starting 12/24/2023 until 12/23/2024 [employer] Comment on above: 1 Occurrences starti ng 12/24/2023 until 12/23/2024 Hemoglobin A1c/Hemoglobin.total in Blood HEMOGLOBIN A1C (POC) Lab Routine Type 2 diabetes mellitus without complication, without long-term current use of insulin ([facility]) Ordered: 05/22/2024 [facility] Work Phone: Comment on above: Ordered: 05/22/2024 Hemoglobin A1c/Hemoglobin.total in Blood HEMOGLOBIN A1C (POC) Lab Routine Type 2 diabetes mellitus without complication, without long-term current use of insulin ([facility]) Ordered: 09/19/2024 [facility] Work Phone: Comment on above: Ordered: 09/19/2024 Human papilloma viru s DNA [Presence] in Unspecified specimen by Probe with amplification HPV DNA probe, amplified Microbiology Routine Well woman exam with routine gynecological exam Ordered: 01/01/2024 [facility] Comment on above: Ordered: 01/01/2024 Human papilloma viru s DNA [Presence] in Unspecified specimen by Probe with amplification HPV DNA probe, amplified Microbiology Routine Well woman exam with routine gynecological exam Ordered: 01/07/2025 [facility] Comment on above: Ordered: 01/07/2025 End: 10-16-2024 Lipid 1996 panel - Serum or Plasma Lipid profile Lab Routine Type 2 diabetes mellitus with hyperglycemia, with long-term current use of insulin ([facility]) 1 Occurrences starting 10/17/2023 until 10/16/2024 [employer] Comment on above: 1 Occurrences starti ng 10/17/2023 until 10/16/2024 End: 12-23-2024 Luteinizing hormone Luteinizing hormone Lab Routine Irregular menses 1 Occurrences starting 12/24/2023 until 12/23/2024 [employer] Work Phone: Comment on above: 1 Occurrences starti ng 12/24/2023 until 12/23/2024 End: 10-16-2024 Microalbumin - Albumin: Creatinine Urine Ratio Microalbumin - Albumin: Creatinine Urine Ratio Lab Routine Type 2 diabetes mellitus with hyperglycemia, with long-term current use of insulin ([facility]) 1 Occurrences starting 10/17/2023 until 10/16/2024 [employer] Comment on above: 1 Occurrences starti ng 10/17/2023 until 10/16/2024 Neisseria gonorrhoea e DNA [Presence] in Unspecified specimen by HAIM with probe detection Neisseria gonorrhea DNA probe, direct Lab Routine Vaginal discharge Ordered: 01/07/2025 [facility] Comment on above: Ordered: 01/07/2025 End: 11-29-2024 Pulmonary function test Spirometry (Flow Volume Loop) w/ DLCO (diffusion study) Repeat testing with bronchodilator Pulmonary function test Spirometry (Flow Volume Loop) w/ DLCO (diffusion study) Repeat testing with bronchodilator PFT Routine Mild intermittent asthma without complication 1 Occurrences starting 11/30/2023 until 11/29/2024 [employer] Work Phone: Comment on above: 1 Occurrences starti ng 11/30/2023 until 11/29/2024 SURESWAB(R) ADVANCED VAGINITIS PLUS, TMA SURESWAB(R) ADVANCED VAGINITIS PLUS, TMA Pathology and Cytology Routine Vaginal discharge Ordered: 01/07/2025 [facility] Comment on above: Ordered: 01/07/2025 End: 12-23-2024 Testosterone, Total and Free, S Testosterone, Total and Free, S Lab Routine Irregular menses 1 Occurrences starting 12/24/2023 until 12/23/2024 [place] [facility] Comment on above: 1 Occurrences starti ng 12/24/2023 until 12/23/2024 End: 10-16-2024 Thyroid profile includes TSH FT4 Thyroid profile includes TSH FT4 Lab Routine 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 1 Occurrences starting 10/17/2023 until 10/16/2024 [facility] Comment on above: 1 Occurrences starti ng 10/17/2023 until 10/16/2024 End: 12-23-2024 Thyroid profile includes TSH FT4 Thyroid profile includes TSH FT4 Lab Routine Irregular menses 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 1 Occurrences starting 12/24/2023 until 12/23/2024 [facility] Comment on above: 1 Occurrences starti ng 12/24/2023 until 12/23/2024 Immunizations Immunization Date Immunization Notes Care Provider Chantal sullivan 03-15-2023 influenza virus vaccine, unspecified formulation Ankit Wilson DO Work Phone: [facility] 02-27-2018 influenza, injectabl e, quadrivalent, preservative free Dena Kregel ACUTE CARE PHYSICAL THERAPIST-PERFORMANCE TEST ENGINEER Work Phone[facility] 01-17-2018 tetanus toxoid, redu sagrario diphtheria toxoid, and acellular pertussis vaccine, adsorbed Dena Kregel ACUTE CARE PHYSICAL THERAPIST-PERFORMANCE TEST ENGINEER Work Phone: [facility] Payers Date Payer Category Payer Unknown 2022 Self-pay 2019 Medicare (Managed Care) 1.2. [id number] 2017 Medicaid [id number]. [id number]. [id number] 2016 Unknown [id number] 2016 Medicare [id number]. 1.13.693.2. 7.3.513540.315 2016 Medicare O [facility] [id number]. [id number] 1989 Unknown [id number] 2.16.840.1.984673.3.579.2. 647 1989 Unknown [id number] 2.16.840.1.991097.3.579.2. 647 1989 Unknown [id number] 2.16.840.1.031490.3.579.2. 647 1989 Unknown [id number] 2.16.840.1.340613.3.579.2. 593 1989 Unknown [id number] 2.16.840.1.493317.3.579.2. 593 1989 Unknown [id number] 2.16.840.1.816539.3.579.2. 593 1989 Unknown [id number] 2.16.840.1.475570.3.579.2. 593 1989 Unknown [id number] 2.16.840.1.832297.3.579.2. 593 1989 Unknown [id number] 2.16.840.1.381468.3.579.2. 593 1989 Unknown [id number] 2.16.840.1.612043.3.579.2. 593 1989 Unknown [id number] 2.16.840.1.948106.3.579.2. 593 1989 Unknown [id number] 2.16.840.1.280457.3.579.2. 593 1989 Unknown [id number] 2.16.840.1.218312.3.579.2. 593 1989 Unknown [id number] 2.16.840.1.938057.3.579.2. 593 1989 Unknown [id number] 2.16.840.1.501282.3.579.2. 593 1989 Unknown [id number] 2.16.840.1.451395.3.579.2. 59 1989 Unknown [id number] 2.16.840.1.011466.3.579.2. 727 1989 Unknown [id number] 2.16.840.1.592319.3.579.2. 72 1989 Unknown [id number] 2.16840.1.160548.3.579.2 72 1989 Unknown [id number] 2.840.1.389731.3.579.2. 72 1989 Unknown [id number] 2.16840.1.091994.3.579.2. 72 1989 Unknown [id number] 2.16840.1.464051.3.579.2. 72 1989 Unknown [id number] 2.16840.1.093032.3.579.2. 72 1989 Unknown [id number] 2840.1.373871.3.579.2. 72 1989 Unknown [id number] 2.16.840.1.766096.3.579.2. 72 1989 Unknown [id number] 2.16840.1.176996.3.579.2. 72 1989 Unknown [id number] 2.16.840.1.486663.3.579.2. 72 1989 Unknown [id number] 2.16840.1.721436.3.579.2. 72 1989 Unknown [id number] 2.16.840.1.317327.3.579.2. 727 1989 Unknown [id number] 2.16.840.1.543521.3.579.2. 727 1989 Unknown [id number] 2.16.840.1.542517.3.579.2. 727 1989 Unknown [id number] 2.16.840.1.936253.3.579.2. 128 1989 Unknown [id number] 2.16.840.1.443021.3.579.2. 1285 1989 Unknown [id number] 2.16.840.1.089123.3.579.2. 1285 1989 Unknown [id number] 2.16.840.1.391533.3.579.2. 1285 1989 Unknown [id number] 2.16840.1.862604.3.579.2. 1285 1989 Unknown [id number] 2.16.840.1.957507.3.579.2. 1285 1989 Unknown [id number] 2.16.840.1.414486.3.579.2. 1285 1989 Unknown [id number] 2.16.840.1.939677.3.579.2. 1285 1989 Unknown [id number] 2.16.840.1.313193.3.579.2. 1285 1989 Unknown [id number] 2.16.840.1.603799.3.579.2. 1285 1989 Unknown [id number] 2.16.840.1.254602.3.579.2. 1285 1989 Unknown [id number] 2.16.840.1.273971.3.579.2. 1285 1989 Unknown [id number] 2.16.840.1.505135.3.579.2. 1285 1989 Unknown [id number] 2.16840.1.313167.3.579.2. 128 1989 Unknown [id number] 2.16840.1.811300.3.579.2. 1285 1989 Unknown [id number] 2.16.840.1.483456.3.579.2. 1285 1989 Unknown [id number] 2.840.1.166986.3.579.2. 1285 1989 Unknown [id number] 2.840.1.731999.3.579.2. 1285 1989 Unknown [id number] 2.840.1.730477.3.579.2. 1285 1989 Unknown [id number] 2.840.1.475014.3.579.2. 1285 1989 Unknown [id number] 2.840.1.236524.3.579.2. 1258 1989 Unknown [id number] 2.840.1.842365.3.579.2. 1258 1989 Unknown [id number] 2840.1.795951.3.579.2. 1258 1989 Unknown [id number] 2840.1.537100.3.579.2. 1258 1989 Unknown [id number] 2840.1.853041.3.579.2. 1258 1989 Unknown [id number] 2840.1.074273.3.579.2. 1258 1989 Unknown [id number] 2.16840.1.427496.3.579.2. 1258 1989 Unknown [id number] 2.16840.1.931438.3.579.2. 1258 1989 Unknown [id number] 2.16840.1.360952.3.579.2. 1259 1989 Unknown [id number] 2.16.840.1.253738.3.579.2. 9 1989 Unknown [id number] 2.16.840.1.494889.3.579.2. 9 1989 Unknown [id number] 2.16.840.1.100847.3.579.2. 1258 1989 Unknown [id number] 2.16.840.1.200140.3.579.2. 9 1989 Unknown [id number] 2.16.840.1.340412.3.579.2. 9 1989 Unknown [id number] 2.16.840.1.023066.3.579.2. 9 1989 Unknown [id number] 2.16.840.1.919025.3.579.2. 1259 1959 Medicaid [id number] 1959 Self-pay [id number] 1959 Unknown [id number] Medicaid [id number] 2.16.840.1.725393.19 Medicare Medicare Nonpatient [id number] 0A [id number] Unknown [id number] 2.16.840.1.445349.3.579.2. 531 Social History Date Type Detail Facility Start: 04-10-2023 End: 01-31-2024 Sex Assigned At [facility] Tobacco smoking status No Smokin g Status Entered [facility] Start: 09-25-2021 End: 12-24-2022 Tobacco smoking status NHIS Never smoked tobacco (finding) [facility] Start: 1989 Sex Assigned At Female [facility] Start: 06-26-2012 End: 12-24-2022 Tobacco use and exposure Smokeless tobacco non-user [facility] Start: 01-23-2024 End: 12-02-2024 Alcoholic beverage intake Lifetime non-drinker (finding) [facility] Start: 04-10-2023 End: 01-31-2024 History of Social function [facility] Work Phone: How often do you nee d to have someone help you when you read instructions, pamphlets, or other written material from your doctor or pharmacy [SILS] Never [facility] Work Phone: Within the last year , have you been afraid of your partner or ex-partner? No [facility] Are you now , , , , never or living with a partner? Never [facility] How often to you hav e a drink containing alcohol? Never [facility] Do you feel stress - tense, restless, nervous, or anxious, or unable to sleep at night because your mind is troubled all the time - these days [OSQ] Not at all [facility] (I/We) worried wheth er (my/our) food would run out before (I/we) got money to buy more. Never true [facility] Start: 12-24-2022 Alcohol Comment Caffeine: > 4 cups/day [facility] Start: 1989 Sex assigned at Not on file [facility] Start: 04-21-2024 End: 09-19-2024 Alcoholic beverage intake Not Asked [facility] How hard is it for y ou to pay for the very basics like food, housing, medical care, and heating Not very hard [facility] Do you feel stress - tense, restless, nervous, or anxious, or unable to sleep at night because your mind is troubled all the time - these days [OSQ] To some extent [facility] Start: 03-13-2024 End: 11-07-2024 Alcoholic beverage intake Current non-drinker of alcohol (finding) [facility] Start: 05-16-2016 Alcohol Comment rarely [facility] Start: 12-17-2014 Sex Female (finding) [facility] Start: 10-28-2021 Gender identity Identifies as female gender (finding) [facility] Start: 10-28-2021 Sexual orientation Heterosexual (finding) [facility] Medical Equipment Procedure Code Equipment Code Equipment Origin al Text Equipment Identifier Dates Blood Sugar Diagnostic (Onetouch Verio Test Strips) strip Start: 01-25-2024 Lancets (Onetouc h Delica Plus Lancet) 33 gauge misc Start: 01-25-2024 [id number], [id number], [id number], [id number], [id number], [id number], [id number], [id number], [id number], [id number], [id number], [id number], [id number], [id number], [id number] Start: 08-10-2020 End: 01-01-2026 Goals Date Patient Goal Desired Activity /State Personal health goal Clinical Notes 09-25-2021 to 01-07-2025 Jacqui Duggan LPN - 01/07/2025 2:00 PM EDTTelephone Encounter - Abel Zapata MA - 12/04/2024 7:47 AM EDTTelephone Encounter - Abel Zapata MA - 12/04/2024 7:47 AM EDTPatient Instructions Note Date & Type Note Facility 01-07-2025 History of Present illness Narrative Reason for Appointment: Patient ID: Aida Dunn is a 34 y.o. female who presents for Well Women Visit Patient presents today for Annual Exam. and STD Check. MEDICATIONS Current Outpatient Medications Medication Instructions Blood Glucose Monitoring Suppl (OneTouch Verio Flex System) device 1 each, Does not apply, 3 times daily budesonide-formoterol (Symbicort) 160-4.5 MCG/ACT inhaler INHALE 2 PUFFS IN THE MORNING AND BEFORE BEDTIME cetirizine (ZYRTEC) 10 mg, Oral, Every morning clobetasol (Temovate) 0.05 % external solution Topical, 2 times daily Continuous Blood Gluc Sensor (Dexcom G6 Sensor) misc USE DIRECTED CHANGE SENSOR EVERY 10 DAYS Continuous Blood Gluc Transmit (Dexcom G6 transmitter) misc CHANGE EVERY 3 MONTHS DIRECTED EPINEPHrine (EPIPEN) 0.3 mg, Injection, As needed, Call 911 after use. famotidine (PEPCID) 40 mg, Oral, Daily fluticasone (Flonase) 50 MCG/ACT nasal spray SPRAY 2 SPRAYS INTO EACH NOSTRIL IN THE MORNING glucose blood test strip 1 each, Other, 3 times daily glucose blood test strip Use as instructed ibuprofen 600 MG tablet 1 tablet, Every 6 hours PRN insulin lispro (HumaLOG KWIKPEN) 100 UNIT/ML injection 3 times daily with meals labetalol (NORMODYNE) 100 mg, 3 times daily lactulose (Chronulac) 10 GM/15ML solution TAKE 30 ML BY MOUTH TWICE DAILY NEEDED levothyroxine (Synthroid, Levoxyl) 25 MCG tablet 1 tablet, Daily before breakfast meclizine (ANTIVERT) 25 mg, Oral, 4 times daily PRN ondansetron ODT (ZOFRAN-ODT) 4 mg, Every 8 hours PRN polyethylene glycol (PEG) 3350 (GLYCOLAX) 17 g, Daily Strensiq 18 MG/0.45ML solution injection triamcinolone (Kenalog) 0.5 % cream Topical, 3 times daily ALLERGIES Allergies Allergen Reactions Hydrocortisone Unknown Other reaction(s): steroid cream she placed in ear, caused entire face to swell, doesn't know name of cream Ciprofloxacin Diarrhea and Unknown dizzy, loss of equilibrium Other reaction(s): Other: See Comments Other reaction(s): Other: See Comments dizzy, loss of equilibrium dizzy, loss of equilibrium Other reaction(s): Other: See Comments dizzy, loss of equilibrium Cephalexin Liraglutide Nausea Only Metformin Diarrhea Nitrofurantoin Other Unknown Latex Rash PROBLEMS Active Ambulatory Problems Diagnosis Date Noted Abnormal involuntary movement 01/26/2014 Absence of bladder continence 01/04/2023 ISAAC (generalized anxiety disorder) 01/04/2023 Benign essential hypertension 08/28/2022 Bilateral tinnitus 03/07/2018 Carpal tunnel syndrome on both sides 01/18/2022 Chronic migraine without aura, intractable, without status migrainosus 01/04/2023 Seasonal allergic rhinitis due to pollen 01/04/2023 Colitis 01/04/2023 Type 2 diabetes mellitus with other specified complication ([facility]) 01/04/2023 Type 2 diabetes mellitus with hyperglycemia, with long-term current use of insulin ([facility]) 11/22/2016 Type 2 diabetes mellitus with polyneuropathy ([facility]) 07/11/2017 Disorder of phosphorus metabolism 01/04/2023 Dyslipidemia 08/28/2022 Edema of lower extremity 01/04/2023 Headache, variant migraine 01/04/2023 Hearing loss of right ear 03/07/2018 History of premature delivery, currently ([facility]) 10/04/2020 History of stillbirth in patient in third trimester, antepartum ([facility]) 10/04/2020 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 08/28/2022 Impairment of balance 03/20/2012 Inappropriate sinus tachycardia (HCC) 02/16/2020 Intracranial arachnoid cyst 06/13/2021 Intractable migraine with aura without status migrainosus 06/13/2021 Irritable bowel syndrome without diarrhea 01/04/2023 Migraine 08/20/2013 Mixed hyperlipidemia 01/04/2023 Moderate persistent asthma without complication (HCC) 01/04/2023 Fibromyalgia 01/04/2023 Neck pain 01/18/2022 Non-toxic nodular goiter 01/04/2023 Class 1 obesity due to excess calories with serious comorbidity and body mass index (BMI) of 30.0 to 30.9 in adult 08/20/2013 Obstructive sleep apnea 01/04/2023 Other cervical disc degeneration, unspecified cervical region 01/04/2023 Overweight (BMI 25.0-29.9) 05/16/2016 Palpitations 01/04/2023 Periodic limb movement 01/04/2023 Restless legs 06/12/2018 Polycystic ovaries 08/28/2022 Postural orthostatic tachycardia syndrome (POTS) 06/14/2022 Radiculopathy of cervical region 01/04/2023 Pain in right knee 01/04/2023 Second hand smoke exposure 01/04/2023 Somatoform pain disorder 01/04/2023 Tachycardia 08/20/2013 Tremor 01/04/2023 Persistent vertigo of central origin 02/20/2023 GERD without esophagitis 04/17/2023 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 Generalized abdominal pain 06/05/2023 Chronic idiopathic constipation 06/05/2023 Autism spectrum disorder (HCC) 06/18/2023 Acute non-recurrent pansinusitis 09/10/2023 Chronic rhinosinusitis 01/02/2024 PTSD (post-traumatic stress disorder) 01/18/2024 Allergic reaction to bee sting 01/23/2024 Attention deficit hyperactivity disorder (ADHD), combined type 02/22/2024 Resolved Ambulatory Problems Diagnosis Date Noted Acquired hypothyroidism 04/26/2022 Hypothyroidism affecting (HCC) 11/22/2016 Asthma during ([facility]) 10/04/2020 Asthma ([facility]) 05/16/2016 Carpal tunnel syndrome 01/04/2023 Chronic hypertension affecting ([facility]) 10/04/2020 Allergic rhinitis 05/16/2016 Seasonal allergic rhinitis due to fungal spores 01/04/2023 Depressive disorder 01/04/2023 Diabetes ([facility]) 01/04/2023 Type 1 diabetes mellitus ([facility]) 01/04/2023 Type 2 diabetes mellitus without complication ([facility]) 01/04/2023 Dizziness and giddiness 08/20/2013 Vertigo 03/07/2018 Ear pressure, right 10/31/2021 Itching of ear 10/18/2022 Gait disturbance 08/08/2022 Migraine variant, intractable 08/08/2022 Hypertensive disorder 01/04/2023 Myalgia 01/04/2023 Nasal congestion 03/07/2018 Nausea and vomiting 01/04/2023 Fibromyalgia syndrome 03/20/2012 Neuralgia and neuritis, unspecified 01/04/2023 Nontoxic single thyroid nodule 01/04/2023 Open wound of hand except fingers 11/13/2013 Pre-existing type 2 diabetes mellitus during in third trimester ([facility]) 08/20/2020 Right leg pain 01/04/2023 Right lower quadrant abdominal pain 01/04/2023 Syncope 01/04/2023 Tachycardia, unspecified 01/04/2023 Wheezing 01/04/2023 Dysuria 06/11/2024 Past Medical History: Diagnosis Date Anxiety Fatigue History of being hospitalized 01/2018 Hypertension Hypothyroidism IBS (irritable bowel syndrome) PCOS (polycystic ovarian syndrome) Sleep apnea HISTORY PAST MEDICAL HISTORY SOCIAL HISTORY Past Medical History: Diagnosis Date Anxiety Colitis Diabetes ([facility]) Fatigue Fibromyalgia History of being hospitalized 01/2018 [place] - , delivery Hypertension Hypothyroidism IBS (irritable bowel syndrome) PCOS (polycystic ovarian syndrome) Sleep apnea Social History Tobacco Use Smoking status: Never Smokeless tobacco: Never Substance Use Topics Alcohol use: Never Comment: Caffeine: > 4 cups/day Drug use: Never FAMILY HISTORY Family History Problem Relation Name Age of Onset Hyperlipidemia Mother Depression Mother Arthritis Mother Diabetes Mother Hypertension Mother Breast cancer Mother Hypertension Father Hyperlipidemia Father Heart disease Father Diabetes Father Depression Father Arthritis Father Depression Sister Hypertension Brother Depression Brother Premature Daughter 27wks 6 days ALS Mother's Sister Stroke Maternal Grandmother Hypertension Maternal Grandmother Heart disease Maternal Grandmother Depression Maternal Grandmother Tuberculosis Maternal Grandmother Hypertension Maternal Grandfather Depression Maternal Grandfather Arthritis Paternal Grandmother Heart disease Paternal Grandmother Hypertension Paternal Grandmother Hyperlipidemia Paternal Grandmother Diabetes Paternal Grandmother Hypertension Paternal Grandfather SURGICAL HISTORY Past Surgical History: Procedure Laterality Date BLADDER SURGERY bladder extension SECTION, LOW TRANSVERSE 01/14/2018 CT ANGIOGRAM HEART CORONARY 09/30/2020 CT ANGIOGRAM TAVR 09/30/2020 CT ANGIOGRAM HEART CORONARY 02/21/2017 CT ANGIOGRAM TAVR 02/21/2017 SEPTOPLASTY TONSILLECTOMY TUBAL LIGATION Bilateral 02/24/2021 REVIEW OF SYSTEMS Review of Systems: Review of Systems Constitutional: Negative. HENT: Negative. Eyes: Negative. Respiratory: Negative. Cardiovascular: Negative. Gastrointestinal: Negative. Genitourinary: Negative. Musculoskeletal: Negative. Skin: Negative. Neurological: Negative. All other systems reviewed and are negative. Hematological: Negative. Endocrine: Negative. Allergic/Immunologic: Negative. OBJECTIVE Objective: Physical Exam Constitutional: Appearance: Normal appearance. She is well-developed. Genitourinary: Vulva normal. Cardiovascular: Rate and Rhythm: Normal rate and regular rhythm. Pulmonary: Effort: Pulmonary effort is normal. Breath sounds: Normal breath sounds. Abdominal: General: Bowel sounds are normal. There is no distension. Palpations: Abdomen is soft. Tenderness: There is no abdominal tenderness. There is no guarding or rebound. Musculoskeletal: General: No swelling. Normal range of motion. Right lower leg: No edema. Left lower leg: No edema. Neurological: Mental Status: She is alert and oriented to person, place, and time. Skin: General: Skin is warm and dry. Psychiatric: Mood and Affect: Mood normal. Behavior: Behavior normal. Vitals and nursing note reviewed. Exam conducted with a back stayer present. Vitals: Estimated body mass index is 29.66 kg/m as calculated from the following: Height as of 12/02/24: 5' 5 . Weight as of this encounter: 178 lb 4 oz. BP: 122/82 No LMP recorded. ASSESSMENT & PLAN ICD-10-CM 1. Well woman exam with routine gynecological exam Z01.419 Pap Smear HPV DNA probe, amplified 2. Vaginal discharge N89.8 SURESWAB(R) ADVANCED VAGINITIS PLUS, TMA CHLAMYDIA TRACHOMATIS (GENITO/STI) Neisseria gonorrhea DNA probe, direct Orders Placed This Encounter Procedures HPV DNA probe, amplified CHLAMYDIA TRACHOMATIS (GENITO/STI) Neisseria gonorrhea DNA probe, direct Annual Wellness Exam: Patient presents today for routine annual exam. Patient states she has complaints of itching vaginal discharge. Patients vitals were reviewed and within normal limits. Growth and development is noted to be appropriate for age. Menstrual history is noted to be regular with no concerns reported. No mental health concerns was expressed. Pap Smear: Speculum was inserted into the vagina and pap was obtained without difficulty. HPV testing was performed per age guideline. Patient was advised that pap results could take anywhere from 7 to 10 days to receive and our office will reach out to the patient with those once we have them. Patient can also view results via fromAtoB. I reinforced importance of condom use for STI prevention. Patient requested cultures to be performed with today's visit. Breast Exam: Upon examination, clinical breast exam was noted to be normal. Patient was counseled on breast self-awareness, including the importance of knowing what is normal for her own breasts and promptly reporting any changes such as new lumps, skin dimpling, nipple discharge, or pain. Screening mammogram recommended annually beginning at age 40 or earlier if risk factors are present. Discussed signs and symptoms of breast cancer and when to seek medical attention. Answered all patient questions. Contraceptive Counseling (if applicable): Patient is currently using tubal as a form of contraceptive. Follow Up: Patient is to return to our office in one year for annual exam unless needed otherwise. Documented by Jacqui Duggan LPN on behalf of: Ankit Wilson DO documented in this encounter [facility] 12-04-2024 Telephone encounter Note Images from the original note were not included. Most recent Endocrinology visit: Last encounter Visit on 09/19/2024 (with Irina Moreno) 04/21/2024 in [facility] with IRINA MORENO for Juvenile hypophosphatasia 05/22/2024 in [facility] MA[facility] with IRINA MORENO for Type 2 diabetes mellitus without complication, without long-term current use of insulin ([facility]) 07/11/2024 in ENDO MAIN with IRINA MORENO for Juvenile hypophosphatasia 09/19/2024 in ENDO MAIN with IRINA MORENO for Type 2 diabetes mellitus without complication, without long-term current use of insulin (HCC) Upcoming Endocrinology Appointments - Next 365 Days Visit Type Date Time Department [facility] PATIENT 03/23/2025 12:20 PM ENDO MAIN Requested Prescriptions Pending Prescriptions Disp Refills T:SLIM X2 CONTROL-IQ misc [Pharmacy Med Name: T:SLIM X2 INSULIN PUMP INS PUMP DEVICE] 1 each 0 Sig: USE DIRECTED Latest Ref Rng & Units 09/19/2024 05/22/2024 Hemoglobin A1C Hemoglobin A1C (POCT) 4.3 - 5.6 % 6.9 7.0 Latest Ref Rng & Units 05/22/2024 TSH TSH 0.270 - 4.200 mIU/L 0.719 Free T3: None on file in the last 12 months Free T4: None on file in the last 12 months Thyroglobulin: None on file in the last 12 months Vitamin D: None on file in the last 12 months Hematocrit: None on file in the last 12 months Latest Ref Rng & Units 05/22/2024 Creatinine Creatinine 0.58 - 0.96 mg/dL 0.71 Latest Ref Rng & Units 05/22/2024 eGFR EGFR >=60 mL/min/1.73m 114 Latest Ref Rng & Units 05/22/2024 Potassium Potassium 3.7 - 5.1 mmol/L 4.3 Latest Ref Rng & Units 05/22/2024 Testosterone Testosterone Free 1.3 - 9.2 pg/mL 6.4 IGF: None on file in the last 12 months Prolactin: None on file in the last 12 months [facility] 12-04-2024 Miscellaneous Notes Images from the original note were not included. Most recent Endocrinology visit: Last encounter Visit on 09/19/2024 (with Irina Moreno) 04/21/2024 in [facility] with IRIAN MORENO for Juvenile hypophosphatasia 05/22/2024 in [facility]O [facility] MA[facility] with IRINA MORENO for Type 2 diabetes mellitus without complication, without long-term current use of insulin (HCC) 07/11/2024 in ENDO MAIN with IRINA MORENO for Juvenile hypophosphatasia 09/19/2024 in ENDO MAIN with IRINA MORENO for Type 2 diabetes mellitus without complication, without long-term current use of insulin (HCC) Upcoming Endocrinology Appointments - Next 365 Days Visit Type Date Time Department [facility] PATIENT 03/23/2025 12:20 PM ENDO MAIN Requested Prescriptions Pending Prescriptions Disp Refills T:SLIM X2 CONTROL-IQ misc [Pharmacy Med Name: T:SLIM X2 INSULIN PUMP INS PUMP DEVICE] 1 each 0 Sig: USE DIRECTED Latest Ref Rng & Units 09/19/2024 05/22/2024 Hemoglobin A1C Hemoglobin A1C (POCT) 4.3 - 5.6 % 6.9 7.0 Latest Ref Rng & Units 05/22/2024 TSH TSH 0.270 - 4.200 mIU/L 0.719 Free T3: None on file in the last 12 months Free T4: None on file in the last 12 months Thyroglobulin: None on file in the last 12 months Vitamin D: None on file in the last 12 months Hematocrit: None on file in the last 12 months Latest Ref Rng & Units 05/22/2024 Creatinine Creatinine 0.58 - 0.96 mg/dL 0.71 Latest Ref Rng & Units 05/22/2024 eGFR EGFR >=60 mL/min/1.73m 114 Latest Ref Rng & Units 05/22/2024 Potassium Potassium 3.7 - 5.1 mmol/L 4.3 Latest Ref Rng & Units 05/22/2024 Testosterone Testosterone Free 1.3 - 9.2 pg/mL 6.4 IGF: None on file in the last 12 months Prolactin: None on file in the last 12 months documented in this encounter [facility] 12-02-2024 History of Present illness Narrative Associated Problem(s): Type 2 diabetes mellitus with hyperglycemia, with long-term current use of insulin (HCC) Lost insulin pump and need to contact endo. Using subcutaneous insulin and monitor TID. Associated Problem(s): Acute non-recurrent pansinusitis Take antibiotics BID for 10 days. Use [...] no better or worse call for re-evaluation. Images from the original note were not included. Subjective Patient ID: Aida Dunn is a 34 y.o. female who presents for Follow-up (Sinus infection/Just not feeling well). C/o cough, congestion, and rhinorrhea x 2 weeks. Afebrile. Severe fatigue and no energy. Mild cough dry and nonproductive. Denies chest tightness or SOB. MEJIA and sinus pressure in forehead and cheeks along with postnasal drip. Ears plugged and popping. Sore throat and pain to swallow. Mild nausea. Denies recent sick contacts. Using OTC medication and mild relief. No improvement in symptoms since onset. Moving and lost insulin pump and CGM. Reports BS remain okay around 150. Needs new glucometer. Scheduled with endo. Review of Systems Respiratory: Negative for cough, shortness of breath and wheezing. Cardiovascular: Negative for chest pain and palpitations. Gastrointestinal: Negative for abdominal pain, diarrhea, nausea and vomiting. Genitourinary: Negative for dysuria. Objective Physical Exam Constitutional: General: She is not in acute distress. Appearance: Normal appearance. HENT: Head: Normocephalic. Right Ear: Tympanic membrane normal. Left Ear: Tympanic membrane normal. Eyes: Extraocular Movements: Extraocular movements intact. Pupils: Pupils are equal, round, and reactive to light. Cardiovascular: Rate and Rhythm: Normal rate and regular rhythm. Heart sounds: No murmur heard. No friction rub. No gallop. Pulmonary: Effort: Pulmonary effort is normal. Breath sounds: Normal breath sounds. No wheezing, rhonchi or rales. Abdominal: General: Bowel sounds are normal. There is no distension. Palpations: Abdomen is soft. Tenderness: There is no abdominal tenderness. There is no guarding or rebound. Musculoskeletal: Cervical back: Neck supple. Right lower leg: No edema. Left lower leg: No edema. Neurological: Mental Status: She is alert. Assessment/Plan Problem List Items Addressed This Visit Type 2 diabetes mellitus with hyperglycemia, with long-term current use of insulin (HCC) Lost insulin pump and need to contact endo. Using subcutaneous insulin and monitor TID. Relevant Medications glucose blood test strip Blood Glucose Monitoring Suppl ([employer] Verio Flex System) device Acute non-recurrent pansinusitis - Primary Take antibiotics BID for 10 days. Use [...] no better or worse call for re-evaluation. Relevant Medications amoxicillin-clavulanate (Augmentin) 875-125 MG tablet documented in this encounter [facility] 11-10-2024 Miscellaneous Notes PAP mask and supplies order with supportive documentation faxed to [facility]. documented in this encounter [facility] 11-10-2024 Telephone encounter Note PAP mask and supplies order with supportive documentation faxed to [facility]. [facility] 11-07-2024 Miscellaneous Notes Images from the original note were not included. PA for Symbicort approved on 11/07/2024 PA Authorization Approved from 08/08/2024 - 11/07/2025 documented in this encounter [facility] 11-07-2024 Telephone encounter Note Images from the original note were not included. PA for Symbicort approved on 11/07/2024 PA Authorization Approved from 08/08/2024 - 11/07/2025 [facility] 11-07-2024 History of Present illness Narrative Chief Complaint: Aida Dunn is a 34 y.o. female present for follow up visit regarding asthma and BUTCH HPI: Patient is accompanied by: Self The patient reports that she only using Symbicort once a day without spacer. She denies any fever, chills, chest pain, shortness of breath, phlegm, cough or hemoptysis. Denies any ER visits or hospitalizations since she last visit in our office. Patient has a nebulizer that they are using and benefiting from. Last use : last week Supplemental O2 use: none Frequency of respiratory infections: None in 6 months Has tried following inhalers in past: Symbicort and Albuterol Last steroid use: none Previous Exposures: There is no history of TB or TB exposure. There is no asbestos or silica dust exposure. The patient reports does not have any coal, foundry, quarry or cotton mill exposure. Travel history reveals no significant history of risk factors for pulmonary disease. There is no history of recreational or IV drug use. The patient does not have any pets: dogs, cats, turtles or exotic birds. Sleep Issues: The patient reports that she is non-adherent to her nocturnal ventilatory due to moving. Machine is not working as it should because her machine is burning her nose. She has contacted her DME, but has not had any resolved. Her machine is older an in need of a new machine. She denies sleepiness while driving. Supplemental O2 use: none Current PAP interface: She uses a Full Face Mask. She does not use a chinstrap. She does not use the heated inline humidifier. Cleaning supplies with soap and water. EPWORTH SLEEPINESS SCALE Sitting and Reading: (!) Moderate Chance Watching TV: (!) Moderate Chance Sitting inactive in a public place (theater, meeting): Slight Chance As a passenger in a car for an hour without a break: Slight Chance Lying down in the afternoon to rest: Slight Chance Sitting and talking to someone: Never Sitting quietly after lunch (without alcohol): Slight Chance In a car, while stopped for a few minutes in traffic: Never Total: 8 OARRS REVIEWED: Reviewed: no PMH @ Past Medical History: Diagnosis Date Abdominal pain Abnormal involuntary movement Anxiety Asthma 05/16/2016 Autism Bacterial vaginosis Bladder incontinence Goode hump Carpal tunnel syndrome, bilateral Chronic hypertension affecting 01/15/2018 Colitis Constipation Depression Dizziness 03/07/2018 DM type 2 (diabetes mellitus, type 2) ([facility]) Dyslipidemia Edema, lower extremity Fatigue Fibromyalgia Gait disturbance Giddiness Kaleb's thyroiditis Hearing loss 03/07/2018 History of intrauterine History of delivery HPP (hereditary pyropoikilocytosis) ENDOCRINOLOGY IS TESTING TO CONFIRM DIAGNOSIS HPP (hereditary pyropoikilocytosis) HTN (hypertension) Hyperlipidemia Hypophosphatasia Hypothyroid IBS (irritable [...] Tinnitus of both ears Toe deformity Vertigo PERTINENT HISTORY: Her pertinent medical history includes Past Medical History: Diagnosis Date Abdominal pain Abnormal involuntary movement Anxiety Asthma 05/16/2016 Autism Bacterial vaginosis Bladder incontinence Goode hump Carpal tunnel syndrome, bilateral Chronic hypertension affecting 01/15/2018 Colitis Constipation Depression Dizziness 03/07/2018 DM type 2 (diabetes mellitus, type 2) ([facility]) Dyslipidemia Edema, lower extremity Fatigue Fibromyalgia Gait disturbance Giddiness Kaleb's thyroiditis Hearing loss 03/07/2018 History of intrauterine History of delivery HPP (hereditary pyropoikilocytosis) ENDOCRINOLOGY IS TESTING TO CONFIRM DIAGNOSIS HPP (hereditary pyropoikilocytosis) HTN (hypertension) Hyperlipidemia Hypophosphatasia Hypothyroid IBS (irritable [...] Tinnitus of both ears Toe deformity Vertigo CURRENT MEDICATIONS: Reviewed with patient. Current Outpatient Medications: albuterol (PROVENTIL HFA;VENTOLIN HFA) 90 mcg/actuation inhaler, Inhale 2 puffs every 6 (six) hours as needed for wheezing or shortness of breath., Disp: 18 g, Rfl: 3 albuterol (PROVENTIL,VENTOLIN) 2.5 mg /3 mL (0.083 %) nebulizer solution, Inhale 3 mL (2.5 mg total) by nebulization every 6 (six) hours as needed for wheezing or shortness of breath., Disp: 360 mL, Rfl: 11 blood sugar diagnostic (ONETOUCH VERIO TEST STRIPS) strip, USE DIRECTED TO TEST 1 TIME DAILY, Disp: 100 strip, Rfl: 3 blood-glucose meter (ONETOUCH VERIO METER) mis, USE DIRECTED TO TEST 1 TIME DAILY, Disp: 1 each, Rfl: 0 cetirizine (ZyrTEC) 10 mg capsule, Take 1 capsule (10 mg total) by mouth daily., Disp: 30 capsule, Rfl: 11 DEXCOM G7 SENSOR device, CHANGE EVERY 10 DAYS, Disp: 9 each, Rfl: 3 EPINEPHrine (EPIPEN) 0.3 mg/0.3 mL auto-injector, Inject 0.3 mL (0.3 mg total) into the appropriate muscle as needed (allergic reaction)., Disp: 2 each, Rfl: 0 fluticasone propionate (FLONASE) 50 mcg/actuation nasal spray, Administer 1 spray into each nostril daily., Disp: 15.8 mL, Rfl: 11 ibuprofen (MOTRIN) 600 mg tablet, Take 1 tablet (600 mg total) by mouth every 6 (six) hours as needed for pain., Disp: 30 tablet, Rfl: 0 insulin lispro (HumaLOG U-100 Insulin) 100 unit/mL injection, USE UP TO 70 UNITS A DAY PER INSULIN PUMP DX:E11.9, Disp: 60 mL, Rfl: 3 insulin syringe-needle U-100 1/2 mL 31 gauge x 15/64 syringe, Use as directed to give insulin injections 5 times daily, Disp: 200 each, Rfl: 6 labetaloL (NORMODYNE) 100 mg tablet, Take 1 tablet (100 mg total) by mouth in the morning and 1 tablet (100 mg total) at noon and 1 tablet (100 mg total) before bedtime., Disp: , Rfl: lactulose (KRISTALOSE) 20 gram [...] tablet (25 mg total) as needed before bedtime., Disp: , Rfl: omeprazole (PriLOSEC) 40 mg capsule, Take by mouth as needed., Disp: , Rfl: ONETOUCH DELICA PLUS LANCET 33 gauge misc, USE DIRECTED TO TEST 1 TIME DAILY, Disp: 100 each, Rfl: 3 pen needle, diabetic (BD KATLYN 2ND GEN PEN NEEDLE) 32 gauge x 5/32 needle, Use as directed to give insulin 5 times daily., Disp: 200 each, Rfl: 7 vit calc,iron,folic ( VITAMIN ORAL), Take 1 tablet by mouth in the morning., Disp: , Rfl: STRENSIQ 80 mg/0.8 mL solution, Inject 2 mg/kg three times per week as directed. Rotate sites. , Disp: 24 mL, Rfl: 10 SYMBICORT 160-4.5 mcg/actuation inhaler, Inhale 2 puffs in the morning and 2 puffs before bedtime., Disp: 10.2 g, Rfl: 11 amoxicillin-pot clavulanate (AUGMENTIN) 825-125 mg per tablet, Take 1 tablet by mouth in the morning and 1 tablet before bedtime. (Patient not taking: Reported on 11/07/2024), Disp: , Rfl: atorvastatin (LIPITOR) 20 mg tablet, TAKE 1 TABLET (20 MG TOTAL) BY MOUTH IN THE MORNING (Patient not taking: Reported on 11/07/2024), Disp: 90 tablet, Rfl: 3 hydrOXYzine (ATARAX) 25 mg tablet, Take 1 tablet (25 mg total) by mouth 3 (three) times a day as needed for itching. (Patient not taking: Reported on 11/07/2024), Disp: , Rfl: losartan (COZAAR) 25 mg tablet, Take 1 tablet (25 mg total) by mouth in the morning. (Patient not taking: Reported on 11/07/2024), Disp: 30 tablet, Rfl: 11 ondansetron ODT (ZOFRAN ODT) 4 mg disintegrating tablet, Dissolve 1 tablet (4 mg total) on tongue every 8 (eight) hours as needed for nausea or vomiting. (Patient not taking: Reported on 11/07/2024), Disp: 20 tablet, Rfl: 0 ondansetron ODT (ZOFRAN ODT) 4 mg disintegrating tablet, Dissolve 1 tablet (4 mg total) on tongue every 8 (eight) hours as needed for nausea for up to 10 doses. (Patient not taking: Reported on 11/07/2024), Disp: 10 tablet, Rfl: 0 STRENSIQ 18 mg/0.45 mL solution, Inject 2 mg/kg three times per week as directed. Rotate sites. 208.72 (Patient not taking: Reported on 11/07/2024), Disp: 12 mL, Rfl: 10 Current Facility-Administered Medications: albuterol (PROVENTIL,VENTOLIN) nebulizer solution 2.5 mg, 2.5 mg, nebulization, PRN, JOURDAN Ramírez Vitals: 11/07/24 1037 BP: 149/84 Pulse: 92 SpO2: 98% Weight: 82.3 kg (181 lb 8 oz) Height: 165.1 cm (5' 5 ) ALLERGIES Reviewed with patient. Hydrocortisone; Ciprofloxacin; Keflex [cephalexin]; Macrobid [nitrofurantoin monohyd/m-cryst]; Metformin; Neuromuscular blockers, steroidal; Victoza 2-ricki [liraglutide]; and Latex, natural rubber FAMILY HISTORY Family History Problem Relation Age [...] Social History Socioeconomic History Marital status: Single Tobacco Use Smoking status: Never Smokeless tobacco: Never Vaping Use Vaping status: Never Used Substance and Sexual Activity Alcohol use: No Alcohol/week: 0.0 standard drinks of alcohol Comment: rarely Drug use: No Sexual activity: Yes Partners: Male control/protection: None Social Drivers of Health Financial Resource Strain: Low Risk (01/31/2024) Received from [facility] Overall Financial Resource Strain (CARDIA) Difficulty of Paying Living Expenses: Not hard at all Food Insecurity: No Food Insecurity (05/31/2024) Hunger Screening Food Insecurity - Worry: Never True Food Insecurity - Inability: Never True Transportation Needs: No Transportation Needs (01/31/2024) Received from [facility] PRAPARE - Transportation Lack of Transportation (Medical): No Lack of Transportation (Non-Medical): No Physical Activity: Inactive (01/31/2024) Received from [facility] Exercise Vital Sign Days of Exercise per Week: 0 days Minutes of Exercise per Session: 0 min Stress: No Stress Concern Present (01/31/2024) Received from [facility] [place] [facility] [employer] [facility] - Occupational Stress Questionnaire Feeling of Stress : Not at all Social Connections: Socially Isolated (01/31/2024) Received from [facility] Social Connection and Isolation Panel [NHANES] Frequency of Communication with Friends and Family: Once a week Frequency of Social Gatherings with Friends and Family: Never Attends Gnosticist Services: Never Active Member of Clubs or Organizations: No Attends Club or Organization Meetings: Never Marital Status: Never Interpersonal Safety: Unknown (01/31/2024) Received from [facility], [facility] Humiliation, Afraid, Rape, and Kick questionnaire Fear of Current or Ex-Partner: No Housing Instability: Unknown (01/31/2024) Received from [facility] Housing Stability Vital Sign Unable to Pay for Housing in the Last Year: No Homeless in the Last Year: No TRAVEL HISTORY: Denies recent travel. ROS: Review of Systems Constitutional: Negative for chills, fatigue and fever. Respiratory: Negative for cough, shortness of breath and wheezing. Cardiovascular: Negative for chest pain/discomfort. All other systems are reviewed and are negative except as noted. PHYSICAL EXAM Vital signs BP 149/84 Pulse 92 Ht 165.1 cm (5' 5 ) Wt 82.3 kg (181 lb 8 oz) SpO2 98% BMI 30.20 kg/m Physical Exam Vitals and nursing note reviewed. Constitutional: Appearance: Normal appearance. She is obese. Cardiovascular: Heart sounds: Normal heart sounds. Pulmonary: Breath sounds: Normal breath sounds. Musculoskeletal: Cervical back: Neck supple. Skin: General: Skin is warm and dry. Neurological: Mental Status: She is alert and oriented to person, place, and time. Psychiatric: Behavior: Behavior normal. Assessment: Neurological alert and oriented LAB RESULTS: Lab Results Component Value Date CO2 22 08/13/2024 Lab Results Component Value Date TSH 0.81 01/02/2024 T3, free 3.49 05/20/2020 IMAGING/PFT EDUCATION: Ultrasound abdomen limited Result Date: 10/17/2024 History: Abdominal pain Exam/Technique: Multiple sonographic [...] Erickson Elder MD on 10/17/2024 8:19 AM Ultrasound abdomen limited Result Date: 10/17/2024 THIS EXAM WAS PERFORMED AT [facility] History: Abdominal pain Exam/Technique: Multiple sonographic [...] Erickson Elder MD on 10/17/2024 8:19 AM Ultrasound abdomen limited History: Abdominal pain Exam/Technique: Multiple sonographic images [...] Erickson Elder MD on 10/17/2024 8:19 AM DATA: Data card was not available for PAP usage data download. AutoPAP: 8-15 Titration: 07/2015 PS10/2014 w/ AHI of 13 DME: MSC IMPRESSION There are no diagnoses linked to this encounter. BUTCH with adherence to nocturnal ventilatory support on a nightly basis. Obesity Body mass index is 30.2 kg/m . Asthma appears without current exacerbation Hypertension Type 2 DM Alpha one MS PLAN Discussed diagnosis, its evaluation, treatment and usual course. All questions answered. Educational material distributed. No orders of the defined types were placed in this encounter. No orders of the defined types were placed in this encounter. She will start Symbicort with spacer BID and PRN use of Albuterol Independently reviewed and interpreted PFT and CXR Restart PAP adjust humidity setting. New machine to be ordered Diet and exercise were discussed in detail. Any age appropriate or routine screening per PCP. Follow up in 3 Months time. If her condition should change prior to this she is encouraged to give our office a call. EDUCATION: Driving precautions were reviewed. I advised the patient not to drive if sleepy, and to pin puller if sleepiness occurs while driving. Above plan as discussed with the patient who acknowledged understanding and agreement. Health risks associated with untreated BUTCH were discussed (cardiopulmonary, cerebrovascular, and anesthesia/sedative-related). CC: MD Dena CATALAN [facility] Office: [phone] 10:45 AM on 11/07/2024 This note is dictated with the use of M*Modal.Please note that this dictation was completed with computer voice recognition software. Quite often unanticipated grammatical, syntax, homophones, and other interpretive errors are inadvertently transcribed by the computer software. Please disregard these errors. Please excuse any errors that have escaped final proofreading. JOURDAN Ramírez 11/07/24 1055 documented in this encounter [facility] 11-07-2024 Instructions JOURDAN Ramírez - 11/07/2024 10:30 AM EDT If you re looking for general health and wellness resources, please visit [email or web address] documented in this encounter [facility] 10-15-2024 History of Present illness Narrative Associated Problem(s): Seasonal allergic rhinitis due to pollen Symptoms controlled with medication and continue. Associated Problem(s): Postural orthostatic tachycardia syndrome (POTS) Symptoms unchanged and increase fluids. Follow with cardiology. If symptoms persist may need to add midodrine. Associated Problem(s): GERD without esophagitis Worsening symptoms and stop omeprazole. Try protonix and continue pepcid. Associated Problem(s): Generalized abdominal pain Continued pain and check US RUQ. Associated Problem(s): ISAAC (generalized anxiety disorder) (CMS/HCC) Doing well without medication and monitor. Continue counseling. Associated Problem(s): Benign essential hypertension (CMS/HCC) BP controlled and monitor PRN. Images from the original note were not included. Subjective Patient ID: Aida Dunn is a 34 y.o. female who presents for Follow-up (6m ), Bloated, and Constipation. Follow up HTN, POTS, allergies, GERD, anxiety, and DM. Checking BP PRN and typically controlled. BP normal today. Taking medication daily and tolerating without side effects. POTS stable. Occasionally lightheaded when gets up and standing. Feels heart racing but no LOC. Following with cardiology. Sinus symptoms stable. Mild congestion and rhinorrhea. MEJIA and sinus pressure in forehead and cheeks along with postnasal drip. Ears plugged and popping. GERD worse. Frequent epigastric pain and burning. Severe symptoms after eating and often waking up with symptoms. Taking omeprazole and pepcid but not helping. Continues to have abdominal pain and distention. Develops bloating after eating and frequent pain in upper abdomen. Pain and bloating worse as day progress. Not notice triggers. Anxiety stable without medication. Not as stressed out or overwhelmed. Not as nervous or worry as much. Not as ortega or irritable. BS variable and following with endo. Using insulin pump. Constipation Pertinent negatives include no abdominal pain, diarrhea, nausea or vomiting. Review of Systems Respiratory: Negative for cough, shortness of breath and wheezing. Cardiovascular: Negative for chest pain and palpitations. Gastrointestinal: Positive for constipation. Negative for abdominal pain, diarrhea, nausea and vomiting. Genitourinary: Negative for dysuria. Objective Physical Exam Constitutional: General: She is not in acute distress. Appearance: Normal appearance. HENT: Head: Normocephalic. Right Ear: Tympanic membrane normal. Left Ear: Tympanic membrane normal. Eyes: Extraocular Movements: Extraocular movements intact. Pupils: Pupils are equal, round, and reactive to light. Cardiovascular: Rate and Rhythm: Normal rate and regular rhythm. Heart sounds: No murmur heard. No friction rub. No gallop. Pulmonary: Effort: Pulmonary effort is normal. Breath sounds: Normal breath sounds. No wheezing, rhonchi or rales. Abdominal: General: Bowel sounds are normal. There is no distension. Palpations: Abdomen is soft. Tenderness: There is no abdominal tenderness. There is no guarding or rebound. Musculoskeletal: Cervical back: Neck supple. Right lower leg: No edema. Left lower leg: No edema. Neurological: Mental Status: She is alert. Assessment/Plan Problem List Items Addressed This Visit ISAAC (generalized anxiety disorder) (CMS/HCC) Doing well without medication and monitor. Continue counseling. Benign essential hypertension (CMS/HCC) - Primary BP controlled and monitor PRN. Seasonal allergic rhinitis due to pollen Symptoms controlled with medication and continue. Postural orthostatic tachycardia syndrome (POTS) Symptoms unchanged and increase fluids. Follow with cardiology. If symptoms persist may need to add midodrine. GERD without esophagitis Worsening symptoms and stop omeprazole. Try protonix and continue pepcid. Relevant Medications pantoprazole (Protonix) 40 MG EC tablet Generalized abdominal pain Continued pain and check US RUQ. Relevant Orders US gallbladder documented in this encounter [facility] 09-19-2024 Note HNO ID: [id number] Author: IRINA MORENO MD Service: ? Author Type: Physician Type: Progress Notes Filed: 09/24/2024 13:31 Note Text: Endocrine consult note Follow-up for juvenile onset onset hypophosphatasia, type 2 diabetes, hyperlipidemia, and PCOS. 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 Diagnosed after having low alk phos levels. Patient has generalized pain, mind fogginess, and severe dental issues. On treatment. No longer need a cane. Diagnosed locally by Dr Lennon with genetic testing. Patient on treatment but taking medication every other week since she reports injection site reactions. Genetic testing below. Patient has son who was born in 2020 and also has juvenile onset hypophosphotasia. Ongoing sxs on lower dose of asfotase gwendolyn. Since last visit, I increased dosing to 3x/week (full dose) and patient doing better. Needs me to discuss with panther the dosing to avoid waste with vials. Also has type 2 diabetes. On insulin pump. Met with educator. On t slim A1c 7% last visit. Spikes around lunch. Now doing ok. Basal rates: MN - MN: 0.8 units/hr 1:40 ISF 1:12 carb ratio Target 110 Lives with daughter born in 2018, son born in 2020. Min exercise. Son with HPP too. Also has PCOS. Irregular periods. Has hirsutism, acne. 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 Unable to lose weight. I ordered mounjaro 2.5 mg WEEKLY but this resulted in severe constipation unfortunately. On metformin. Otherwise, no other acute complaints or concerns today. Answers submitted by the patient for this visit: Core Review of Systems (Submitted on 09/19/2024) Recent unintentional weight change: No Nasal Congestion: Yes Hearing Loss: Yes Vision Disturbance: Yes A cough: No Difficulty Breathing?: No Chest pain: No Irregular heartbeat: No Leg Swelling: No Nausea: No Diarrhea: No Black tarry stools: No Difficulty Urinating?: No Awaken at Night More Than Once to Urinate?: No Joint pain or stiffness: Yes Muscle aches: Yes Leg or Foot Discomfort at Night?: Yes A rash: No Dizziness: Yes Headaches: No Memory Loss: No Seizures: No Patient's Past Family and Social history have been reviewed with the patient, and updated as appropriate. Please see relevant sections in [facility] EHR for details. PHYSICAL EXAM: BP 140/85 Pulse 96 Wt 85.5 kg (188 lb 7.9 oz) LMP 08/19/2024 (Approximate) There is no height or weight on file to calculate BMI. General: WNWD, NAD DATA REVIEW: Latest Ref Rng 05/22/2024 Albumin 3.9 - 4.9 g/dL 4.6 Calcium 8.5 - 10.2 mg/dL 9.8 Phosphorus 2.7 - 4.8 mg/dL 3.8 Glucose 74 - 99 mg/dL 139 (H) BUN 7 - 21 mg/dL 12 Creatinine 0.58 - 0.96 mg/dL 0.71 Sodium 136 - 144 mmol/L 139 Potassium 3.7 - 5.1 mmol/L 4.3 Chloride 98 - 107 mmol/L 102 CO2 22 - 30 mmol/L 25 Anion Gap 8 - 15 mmol/L 12 eGFR >=60 mL/min/1.73m? 114 Total Cholesterol, Nonfasting <200 mg/dL 257 (H) Triglycerides, Nonfasting <150 mg/dL 174 (H) HDL Cholesterol, Nonfasting >39 mg/dL 47 LDL Cholesterol, Nonfasting <100 mg/dL 175 (H) Non HDL Cholesterol, Nonfasting <130 mg/dL 210 (H) VLDL Cholesterol, Nonfasting <30 mg/dL 35 (H) Total Chol/HDL Ratio, Nonfasting <5.10 mg/dL 5.47 (H) LDL/HDL Ratio, Nonfasting <2.54 mg/dL 3.72 (H) Sex Hormone Bind GLB 25 - 122 nmol/L 30 Testosterone Total 9 - 55 ng/dL 37 Testosterone Free 1.3 - 9.2 pg/mL 6.4 Testo Bioavailable 4.1 - 25.5 ng/dL 18.2 Glutamic Acid Decarboxylas Ab Qualitative Negative Negative Glutamic Acid Decarboxylase Ab <=5.0 IU/mL <5.0 Magnesium 1.7 - 2.3 mg/dL 2.2 DHEA-S 60.9 - 337.0 ug/dL 60.7 (L) TSH 0.270 - 4.200 mIU/L 0.719 C-Peptide 1.1 - 4.4 ng/mL 4.5 (H) Islet Cell Ab <1:4 <1:4 01/14/2024 Total testosterone: 48 TSH: 0.81 Free T4; 1.07 (0.61 to 1.6) FSH: 10.1 LH: 8.6 A1c; : Na; 137 10/19/202308/2024 thyroid ultrasound Impression/plan: 34 year old female with HPP, type 2 diabetes, PCOS, obesity HPP Getting all doses of asfotase gwendolyn now Need to call [place] to fix dosing Get labs done prior to next visit Long discussion re; pathophysiology, etc of disease last visit 2. Type 2 diabetes Adjust pump settings due to spike in numbers: Basal rates: MN -0.8 units/hr 9 am: increase to 1 unit/hr 10 pm: 0.8 21.8 units/day 1:40 ISF 1:12 carb ratio Target 110 Get labs Update me if there are concerns again Cont metformin but stay off mounjaro due to severe constipation 3. Hyperlipidemia Change to crestor 5 mg ONCE WEEKLY- if ok, inc to 2x/week Repeat labs 4. PCOS Labs ok from last visit May need provera. See MATH SPECIALIST for irregular and PMDD. Add exercise daily On disability now so there is time when kids are in school. Advised patient that I will release labs to [facility]. If patient does not hear from me regarding lab results within 1-2 weeks of having them obtained, patient is to call me. Return: 6 m (more content not included)... [facility] 09-19-2024 History of Present illness Narrative Images from the original note were not included. Endocrine consult note Follow-up for juvenile onset onset hypophosphatasia, type 2 diabetes, hyperlipidemia, and PCOS. 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 Diagnosed after having low alk phos levels. Patient has generalized pain, mind fogginess, and severe dental issues. On treatment. No longer need a cane. Diagnosed locally by Dr Lennon with genetic testing. Patient on treatment but taking medication every other week since she reports injection site reactions. Genetic testing below. Patient has son who was born in 2020 and also has juvenile onset hypophosphotasia. Ongoing sxs on lower dose of asfotase gwendolyn. Since last visit, I increased dosing to 3x/week (full dose) and patient doing better. Needs me to discuss with panther the dosing to avoid waste with vials. Also has type 2 diabetes. On insulin pump. Met with educator. On t slim A1c 7% last visit. Spikes around lunch. Now doing ok. Basal rates: MN - MN: 0.8 units/hr 1:40 ISF 1:12 carb ratio Target 110 Lives with daughter born in 2018, son born in 2020. Min exercise. Son with HPP too. Also has PCOS. Irregular periods. Has hirsutism, acne. 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 Unable to lose weight. I ordered mounjaro 2.5 mg WEEKLY but this resulted in severe constipation unfortunately. On metformin. Otherwise, no other acute complaints or concerns today. Answers submitted by the patient for this visit: Core Review of Systems (Submitted on 09/19/2024) Recent unintentional weight change: No Nasal Congestion: Yes Hearing Loss: Yes Vision Disturbance: Yes A cough: No Difficulty Breathing?: No Chest pain: No Irregular heartbeat: No Leg Swelling: No Nausea: No Diarrhea: No Black tarry stools: No Difficulty Urinating?: No Awaken at Night More Than Once to Urinate?: No Joint pain or stiffness: Yes Muscle aches: Yes Leg or Foot Discomfort at Night?: Yes A rash: No Dizziness: Yes Headaches: No Memory Loss: No Seizures: No Patient's Past Family and Social history have been reviewed with the patient, and updated as appropriate. Please see relevant sections in epic EHR for details. PHYSICAL EXAM: BP 140/85 Pulse 96 Wt 85.5 kg (188 lb 7.9 oz) LMP 08/19/2024 (Approximate) There is no height or weight on file to calculate BMI. General: WNWD, NAD DATA REVIEW: Latest Ref Rng 05/22/2024 Albumin 3.9 - 4.9 g/dL 4.6 Calcium 8.5 - 10.2 mg/dL 9.8 Phosphorus 2.7 - 4.8 mg/dL 3.8 Glucose 74 - 99 mg/dL 139 (H) BUN 7 - 21 mg/dL 12 Creatinine 0.58 - 0.96 mg/dL 0.71 Sodium 136 - 144 mmol/L 139 Potassium 3.7 - 5.1 mmol/L 4.3 Chloride 98 - 107 mmol/L 102 CO2 22 - 30 mmol/L 25 Anion Gap 8 - 15 mmol/L 12 eGFR >=60 mL/min/1.73m 114 Total Cholesterol, Nonfasting <200 mg/dL 257 (H) Triglycerides, Nonfasting <150 mg/dL 174 (H) HDL Cholesterol, Nonfasting >39 mg/dL 47 LDL Cholesterol, Nonfasting <100 mg/dL 175 (H) Non HDL Cholesterol, Nonfasting <130 mg/dL 210 (H) VLDL Cholesterol, Nonfasting <30 mg/dL 35 (H) Total Chol/HDL Ratio, Nonfasting <5.10 mg/dL 5.47 (H) LDL/HDL Ratio, Nonfasting <2.54 mg/dL 3.72 (H) Sex Hormone Bind GLB 25 - 122 nmol/L 30 Testosterone Total 9 - 55 ng/dL 37 Testosterone Free 1.3 - 9.2 pg/mL 6.4 Testo Bioavailable 4.1 - 25.5 ng/dL 18.2 Glutamic Acid Decarboxylas Ab Qualitative Negative Negative Glutamic Acid Decarboxylase Ab <=5.0 IU/mL <5.0 Magnesium 1.7 - 2.3 mg/dL 2.2 DHEA-S 60.9 - 337.0 ug/dL 60.7 (L) TSH 0.270 - 4.200 mIU/L 0.719 C-Peptide 1.1 - 4.4 ng/mL 4.5 (H) Islet Cell Ab <1:4 <1:4 01/14/2024 Total testosterone: 48 TSH: 0.81 Free T4; 1.07 (0.61 to 1.6) FSH: 10.1 LH: 8.6 A1c; 24: Na; 137 10/19/202308/2024 thyroid ultrasound Impression/plan: 34 year old female with HPP, type 2 diabetes, PCOS, obesity HPP Getting all doses of asfotase gwendolyn now Need to call [place] to fix dosing Get labs done prior to next visit Long discussion re; pathophysiology, etc of disease last visit 2. Type 2 diabetes Adjust pump settings due to spike in numbers: Basal rates: MN -0.8 units/hr 9 am: increase to 1 unit/hr 10 pm: 0.8 21.8 units/day 1:40 ISF 1:12 carb ratio Target 110 Get labs Update me if there are concerns again Cont metformin but stay off mounjaro due to severe constipation 3. Hyperlipidemia Change to crestor 5 mg ONCE WEEKLY- if ok, inc to 2x/week Repeat labs 4. PCOS Labs ok from last visit May need provera. See MATH SPECIALIST for irregular and PMDD. Add exercise daily On disability now so there is time when kids are in school. Advised patient that I will release labs to [facility]. If patient does not hear from me regarding lab results within 1-2 weeks of having them obtained, patient is to call me. Return: 6 mo All questions answered. No barriers for understanding. Irina Moreno MD Department of Endocrinology September 19, 2024 documented in this encounter [facility] 09-19-2024 Note HNO ID: [id number] Author: ANN VILLAFANA MA Service: ? Author Type: [place] Type: Procedures Filed: 09/24/2024 13:31 Note Text: [facility] 09-19-2024 Procedure note Procedure(s): EXTERNAL CORPORATE FINANCIAL ANALYST, CGM SYS Images from the original note were not included. [facility] 09-19-2024 Procedure note Procedure(s): EXTERNAL CORPORATE FINANCIAL ANALYST, CGM SYS Images from the original note were not included. documented in this encounter [facility] 09-19-2024 Instructions Irina Moreno MD - 09/19/2024 12:00 PM EDT Basal rates: MN -0.8 units/hr 9 am: increase to 1 unit/hr 10 pm: 0.8 21.8 units/day 1:40 ISF 1:12 carb ratio Target 110 documented in this encounter [facility] 09-09-2024 Miscellaneous Notes Patient called 09/09. Patient says she has sinus issues, and has issues breathing thru her nose. Patient was seen by Dr. Gonsalves on 08/15/24, she would like to sign off with Dr Gonsalves, and sign on with Dr Beal. OK. ok Called patient and got her scheduled with Dr. Beal documented in this encounter [facility] 09-09-2024 Telephone encounter Note Patient called 09/09. Patient says she has sinus issues, and has issues breathing thru her nose. Patient was seen by Dr. Gonsalves on 08/15/24, she would like to sign off with Dr Gonsalves, and sign on with Dr Beal. [facility] 09-09-2024 Telephone encounter Note OK. [facility] Work Phone: 09-09-2024 Telephone encounter Note ok [facility] Work Phone: 09-09-2024 Telephone encounter Note Called patient and got her scheduled with Dr. Beal [facility] 08-22-2024 Telephone encounter Note Will address at September visit Irina Moreno MD Dept of Endocrinology [facility] 08-22-2024 Telephone encounter Note Will address at 09/19/2024 visit. Irina Moreno MD Dept of Endocrinology [facility] 08-22-2024 Miscellaneous Notes Will address at September visit Irina Moreno MD Dept of Endocrinology Received Retroperitoneal Ultrasound results from [facility] Indexing results into patient's chart. Tamiko Alvarado Platform Loader II Endocrinology & Metabolism [facility] X-20, F-20 documented in this encounter [facility] 08-22-2024 Miscellaneous Notes Will address at 09/19/2024 visit. Irina Moreno MD Dept of Endocrinology Re[facility]'s chart Tamiko Alvarado Platform Loader II Endocrinology & Metabolism [facility] X-20, F-20 documented in this encounter [facility] 08-20-2024 Telephone encounter Note Received Retroperitoneal Ultrasound results from [facility] Indexing results into patient's chart. Tamiko Alvarado Platform Loader II Endocrinology & Metabolism [facility] X-20, F-20 [facility] 08-20-2024 Telephone encounter Note [facility]'s [facility] Tamiko Alvarado Platform Loader II Endocrinology & Metabolism [place] [facility] X-20, F-20 [facility] 08-19-2024 Telephone encounter Note The following approved medication requests have been transmitted electronically. Requested Prescriptions Signed Prescriptions Disp Refills glucagon (GVOKE) 1 mg/0.2 mL injection 0.2 mL 3 Sig: Inject 0.2 mL subcutaneously as needed. Authorizing Provider: IRINA MORENO MD Thank you [facility] 08-19-2024 Miscellaneous Notes The following approved medication requests have been transmitted electronically. Requested Prescriptions Signed Prescriptions Disp Refills glucagon (GVOKE) 1 mg/0.2 mL injection 0.2 mL 3 Sig: Inject 0.2 mL subcutaneously as needed. Authorizing Provider: IRINA MORENO MD Thank you Dear Dr. Moreno, This patient is currently using MDI/ Insulin Pump/Insulin Upon chart review, please consider ordering glucagon for them. Possible options: -Baqsimi nasal spray, 3mg, disp: 1, Epic code [id number] -Gvoke HypoPen 2-pack, 1mg/0.2mL, disp: 1, Epic code 279002 -Glucagon emergency kit, 1mg, disp: 1 kit, Epic code: 88 Roxi Palafox, RUMA RN, [facility] documented in this encounter [facility] 08-19-2024 Telephone encounter Note Dear Dr. Moreno, This patient is currently using MDI/ Insulin Pump/Insulin Upon chart review, please consider ordering glucagon for them. Possible options: -Baqsimi nasal spray, 3mg, disp: 1, Epic code [id number] -Gvoke HypoPen 2-pack, 1mg/0.2mL, disp: 1, Epic code [id number] -Glucagon emergency kit, 1mg, disp: 1 kit, Epic code: 88 RUMA Warner RN, [facility] 08-15-2024 History of Present illness Narrative Images from the original note were not included. [facility] [address] [place] [id number] SUBJECTIVE: Patient ID (1990): Aida Dunn is a 34 y.o. female presents today for Chief Complaint Patient presents with meineres Sinus Problem HPI: Aida Dunn is a 34 y.o. female seen at the request of Blanco Chavez MD for evaluation of her ears. She reports a feeling of pressure in her ears bilaterally. She reports occasional dizziness, specifically she notes it feels like she is floating. She reports a history of clear drainage out of her ears bilaterally and that it feels like there is fluid in her ears. She notes that the symptoms are intermittent. She confirms that she grinds/clenches her teeth. She also reports difficulty breathing through her nose. She has a history of seasonal allergies and has been using Flonase and Zyrtec. HISTORY: Past Medical History: Diagnosis Date Abdominal pain Abnormal involuntary movement Anxiety Asthma 05/16/2016 Autism Bacterial vaginosis Bladder incontinence Goode hump Carpal tunnel syndrome, bilateral Chronic hypertension affecting 01/15/2018 Colitis Constipation Depression Dizziness 03/07/2018 DM type 2 (diabetes mellitus, type 2) ([facility]) Dyslipidemia Edema, lower extremity Fatigue Fibromyalgia Gait disturbance Giddiness Kaleb's thyroiditis Hearing loss 03/07/2018 History of intrauterine History of delivery HPP (hereditary pyropoikilocytosis) ENDOCRINOLOGY IS TESTING TO CONFIRM DIAGNOSIS HPP (hereditary pyropoikilocytosis) HTN (hypertension) Hyperlipidemia Hypophosphatasia Hypothyroid IBS (irritable [...] 01/14/2018 Performed by Torsten Talley MD at [facility] OR COLONOSCOPY 2014 normal COLONOSCOPY N/A 03/04/2020 Performed by Salvatore Connors DO at [facility] EGD N/A 03/04/2020 Performed by Salvatore Connors DO at [facility] LAPAROSCOPY 08/2016 scar tissue removal from appendix NASAL SEPTUM SURGERY 2007 TONSILLECTOMY Family History Problem Relation Age of Onset [...] Never Smokeless tobacco: Never Vaping Use Vaping status: Never Used Substance and Sexual Activity Alcohol use: No Alcohol/week: 0.0 standard drinks of alcohol Comment: rarely Drug use: No Sexual activity: Yes Partners: Male control/protection: None Other Topics Concern Not on file Social History Narrative Not on file Social Drivers of Health Financial Resource Strain: Low Risk (01/31/2024) Received from [facility] Healthcare Overall Financial Resource Strain (CARDIA) Difficulty of Paying Living Expenses: Not hard at all Food Insecurity: No Food Insecurity (05/31/2024) Hunger Screening Food Insecurity - Worry: Never True Food Insecurity - Inability: Never True Transportation Needs: No Transportation Needs (01/31/2024) Received from [facility] PRAPARE - Transportation Lack of Transportation (Medical): No Lack of Transportation (Non-Medical): No Physical Activity: Inactive (01/31/2024) Received from [facility] Exercise Vital Sign Days of Exercise per Week: 0 days Minutes of Exercise per Session: 0 min Stress: No Stress Concern Present (01/31/2024) Received from [facility] [place] [facility] [employer] [facility] - Occupational Stress Questionnaire Feeling of Stress : Not at all Social Connections: Socially Isolated (01/31/2024) Received from [facility] Social Connection and Isolation Panel [NHANES] Frequency of Communication with Friends and Family: Once a week Frequency of Social Gatherings with Friends and Family: Never Attends Gnosticist Services: Never Active Member of Clubs or Organizations: No Attends Club or Organization Meetings: Never Marital Status: Never Interpersonal Safety: Unknown (01/31/2024) Received from [facility] Humiliation, Afraid, Rape, and Kick questionnaire Fear of Current or Ex-Partner: No Emotionally Abused: Not on file Physically Abused: Not on file Sexually Abused: Not on file Housing Instability: Unknown (01/31/2024) Received from [facility] Housing Stability Vital Sign Unable to Pay for Housing in the Last Year: No Number of Times Moved in the Last Year: Not on file Homeless in the Last Year: No Allergies Allergen Reactions Hydrocortisone Other reaction(s): Other: See Comments steroid cream she placed in ear, caused entire face to swell, doesn't know name of cream Ciprofloxacin Other reaction(s): Other: See Comments dizzy, loss of equilibrium Keflex [Cephalexin] Macrobid [Nitrofurantoin Monohyd/M-Cryst] Metformin Diarrhea Neuromuscular Blockers, Steroidal Swelling Increases blood sugar Victoza 2-Ricki [Liraglutide] Nausea Latex, Natural Rubber Rash Current Outpatient Medications Medication Sig Dispense Refill albuterol (PROVENTIL HFA;VENTOLIN HFA) 90 mcg/actuation inhaler TAKE 2 PUFFS BY MOUTH EVERY 6 HOURS NEEDED FOR WHEEZE OR FOR SHORTNESS OF BREATH 18 g 3 albuterol (PROVENTIL,VENTOLIN) 2.5 mg /3 mL (0.083 %) nebulizer solution Inhale 3 mL (2.5 mg total) by nebulization every 6 (six) hours as needed for wheezing or shortness of breath. 360 mL 11 amoxicillin-pot clavulanate (AUGMENTIN) 875-125 mg per tablet Take 1 tablet by mouth in the morning and 1 tablet before bedtime. atorvastatin (LIPITOR) 20 mg tablet TAKE 1 TABLET (20 MG TOTAL) BY MOUTH IN THE MORNING 90 tablet 3 blood sugar diagnostic (ONETOUCH VERIO TEST STRIPS) strip USE DIRECTED TO TEST 1 TIME DAILY 100 strip 3 blood-glucose meter (ONETOUCH VERIO METER) misc USE DIRECTED TO TEST 1 TIME DAILY 1 each 0 cetirizine (ZyrTEC) 10 mg capsule Take 1 capsule (10 mg total) by mouth daily. 30 capsule 11 DEXCOM G7 SENSOR device Change every 10 days 9 each 3 EPINEPHrine (EPIPEN) 0.3 mg/0.3 mL auto-injector Inject 0.3 mL (0.3 mg total) into the appropriate muscle as needed (allergic reaction). 2 each 0 fluticasone propionate (FLONASE) 50 mcg/actuation nasal spray Administer 1 spray into each nostril daily. 15.8 mL 11 hydrOXYzine (ATARAX) 25 mg tablet Take 1 tablet (25 mg total) by mouth 3 (three) times a day as needed for itching. ibuprofen (MOTRIN) 600 mg tablet Take 1 tablet (600 mg total) by mouth every 6 (six) hours as needed for pain. 30 tablet 0 insulin lispro (HumaLOG U-100 Insulin) 100 unit/mL injection USE UP TO 70 UNITS A DAY PER INSULIN PUMP DX:E11.9 60 mL 3 insulin syringe-needle U-100 1/2 mL 31 gauge x 15/64 syringe Use as directed to give insulin injections 5 times daily 200 each 6 labetaloL (NORMODYNE) 100 mg tablet Take 1 tablet (100 mg total) by mouth 3 (three) times a day. lactulose (KRISTALOSE) 20 gram packet Take 1 packet (20 g total) by mouth as needed. levothyroxine (SYNTHROID, LEVOTHROID) 25 MCG tablet Take 1 tablet (25 mcg total) by mouth in the morning. 90 tablet 3 losartan (COZAAR) 25 mg tablet Take 1 tablet (25 mg total) by mouth in the morning. 30 tablet 11 meclizine (ANTIVERT) 25 mg tablet Take 1 tablet (25 mg total) by mouth 4 (four) times a day as needed. omeprazole (PriLOSEC) 40 mg capsule Take by mouth as needed. ondansetron ODT (ZOFRAN ODT) 4 mg disintegrating tablet Dissolve 1 tablet (4 mg total) on tongue every 8 (eight) hours as needed for nausea or vomiting. 20 tablet 0 ondansetron ODT (ZOFRAN ODT) 4 mg disintegrating tablet Dissolve 1 tablet (4 mg total) on tongue every 8 (eight) hours as needed for nausea for up to 10 doses. 10 tablet 0 ONETOUCH DELICA PLUS LANCET 33 gauge misc USE DIRECTED TO TEST 1 TIME DAILY 100 each 3 pen needle, diabetic (BD KATLYN 2ND GEN PEN NEEDLE) 32 gauge x 5/32 needle Use as directed to give insulin 5 times daily. 200 each 7 vit calc,iron,folic ( VITAMIN ORAL) Take 1 tablet by mouth in the morning. STRENSIQ 18 mg/0.45 mL solution Inject 2 mg/kg three times per week as directed. Rotate sites. 208.72 12 mL 10 STRENSIQ 80 mg/0.8 mL solution Inject 2 mg/kg three times per week as directed. Rotate sites. 1855.28 24 mL 10 SYMBICORT 160-4.5 mcg/actuation inhaler Inhale 2 puffs in the morning and 2 puffs before bedtime. 10.2 g 11 No current facility-administered medications for this visit. REVIEW OF SYSTEMS: Review of Systems Constitutional: Negative for chills and fever. HENT: Positive for congestion, postnasal drip, sinus pressure, sinus pain and tinnitus. Negative for ear pain. Eyes: Negative for redness. Respiratory: Negative for cough, chest tightness and shortness of breath. Gastrointestinal: Negative for vomiting. Endocrine: Negative for heat intolerance. Musculoskeletal: Negative for gait problem. Allergic/Immunologic: Negative for food allergies. Neurological: Positive for dizziness. Negative for headaches. Hematological: Does not bruise/bleed easily. Data Reviewed: 08/15/2024: Hearing Test HISTORY: Concerns with hearing: yes- fluctuates Tinnitus: Bilateral, occasional Dizziness: Yes Noise Exposure: No Aural Fullness: Bilateral Otalgia: No Otorrhea: Bilateral Other significant history: None RESULTS: Otoscopic Evaluation: Right Ear: Unremarkable Left Ear: Unremarkable Immittance Measures: Right Ear: Type As Left Ear: Type A Pure Tone Audiometry: Right Ear: Hearing sensitivity is within normal limits 250-8000 Hz with a mild notch at 3000 Hz Left Ear: Hearing sensitivity is within normal limits 250-8000 Hz Asymmetry noted: No Reliability: good Speech Audiometry: SRT/SHOTBLAST EQUIPMENT OPERATOR in good agreement WRS: Right Ear: Excellent (100%) Left Ear: Excellent (100%) RECOMMENDATIONS: Follow up with Dr. Vale Gonsalves Retest as medically necessary Vivien Cardoso [facility] [employer] PHYSICAL EXAMINATION: Temp 36.8 C (98.2 F) Resp 17 Ht 165.1 cm (5' 5 ) Wt 85.2 kg (187 lb 12.8 oz) BMI 31.25 kg/m Constitutional: Healthy, alert, cooperative, and in no distress and normal ablility to communicate . Voice normal quality. Head/Face: Normocephalic, without obvious abnormality, salivary glands normal, atraumatic, sinuses nontender, and facial nerve intact Eyes: No gross abnormalities., EOMI, no nystagmus, and no lid ptosis Ear: RIGHT: hearing normal, external ear normal, canal normal, and TM normal without fluid or infection LEFT: hearing normal, external ear normal, canal normal, and TM normal without fluid or infection Nose: External nose appears normal, septum midline, normal mucosa, normal turbinates, and no nasal polyps or masses Oral: normal teeth, normal lips, normal gums, normal hard palate, normal anterior tongue, and oral mucosa moist Oropharynx: normal-appearing mucosa, no pharyngitis, no exudate, tonsils surgically absent, and normal soft palate and uvula TMJ: no pain, crepitus, or trismus Neck:normal, supple, no adenopathy, thyroid normal in size, no nodules or tenderness, no neck masses palpable, and carotids normal Heart: Regular rate Respiration: No stridor, Normal respiratory effort. Neurologic: Grossly normal Alert Oriented X 3 Affect normal Cranial nerves 2 -12 grossly intact Procedure: Procedure performed: Flexible fiberoptic nasopharyngoscopy Indication(s) for endoscopy: Nasal Congestion After decongesting and anesthetizing bilateral nasal cavities with topical vasoconstrictor and anesthetic, the endoscope was passed through the nares and passed into the nasopharynx. Findings: Nose and Sinuses: no nasal polyps, purulence, masses or lesions. no abnormalities of the Osteomeatal Complex. S-Shaped deviated septum Nasopharynx: no masses with patent Eustachian tube orifices bilaterally. Adenoids are atrophic. no abnormalities of the nasopharyngeal mucosa. no abnormalities of the posterior nasal choanae. Lymphoid follicles involving the torus tubarius bilaterally Oropharynx: no lesions of the pharyngeal hernandez, base of tongue, or soft palate Hypopharynx: no lesions of bilateral Pyriform sinuses or pharyngeal hernandez; post-cricoid region unremarkable Larynx: no lesions of the epiglottis, aryepiglottic folds, or vocal cords; Right vocal cord demonstrates normal mobility. Left vocal cord demonstrates normal mobility. ASSESSMENT/PLAN: Aida was seen today for meineres and sinus problem. Diagnoses and all orders for this visit: Sensation of fullness in both ears Seasonal allergic rhinitis due to pollen Bruxism Dizziness Aida Dunn was counseled about the results of her hearing test. She was counseled that her symptoms may be secondary to bruxism and clenching her teeth. However, based on her concerns about her ear related symptoms, I suggested a consultation with Salvatore Sow MD who is an tray drier. She is in agreement with this plan of care. Scribe Statement: Scribed for and in the presence of Vale Gonsalves MD by Andry Lombardo (scribe). Andry Lombardo 08/15/2024 10:09 AM Provider Statement: I Vale Gonsalves MD personally performed the services described in the documentation as described by the above named scribe in my presence. It is both accurate and complete at the time of final signature. Dr. Vale Gonsalves 08/15/2024 10:47 AM Please note that parts of this chart were generated using voice recognition M*Modal dictation software. Although every effort was made to ensure the accuracy of this automated belly roller, some errors in belly roller may have occurred. Andry Lombardo 08/15/24 0743 Ghazala Whitney CNA 08/15/24 0949 Andry Lombardo 08/15/24 1013 documented in this encounter [facility] 08-15-2024 Instructions Andry Lombardo - 08/15/2024 9:30 AM EDT Images from the original note were not included. Based on today's evaluation, I recommend: Referral to Dr. Salvatore Sow, our neurootologist, for further evaluation of her ears. I recommend that you follow up with me: as needed. I recommend that you sign up for MY CHART so that I can send you test results and communicate other information pertaining to the management of your health care. The instructions to gain access to MY CHART are at the bottom of this summary. If you are not signed up for access to MY CHART and have not received notification of ANY test result within 7 days, please call [phone] to leave a request for your results. During normal business hours, Dr. Gonsalves and the other health care providers are treating patients in the office or performing surgery, so this will require a follow up telephone call from a health care provider. If you have not been contacted about your test results, do not assume that your test results are normal. If you need to schedule a test such as a CT scan, Ultrasound, MRI or PET scan, please call [facility] at [phone]. If you need to be scheduled for surgery, please call Arielle Longo, Surgery Coordinator at [phone], or our main number [phone] if you have not received a return call within 2 business days. If you are going to have surgery, please carefully read the Instructions for Discontinuing Medications Before Surgery below. Your health care needs are my primary concern. Please let me know how we can serve you better so that we can improve the quality of care that we provide to you and our other patients. Be well! Instructions for Discontinuing Medications Before Surgery This document lists some common medications and supplements that may need to be discontinued prior to your procedure. Following these instructions may reduce side-effects and complications. It is safe to take Tylenol (acetaminophen), unless your doctor tells you otherwise. Seven (7) days before planned surgery: stop taking Non-Steroidal Anti-Inflammatory Drugs (NSAIDs) and certain herbal and weight loss products. (Note: the medications listed are selective and do not include all medications that affect bleeding.) You may need to stop taking aspirin one week (7 days) before planned surgery Please read below Aspirin (and medications that contain aspirin): Many non-prescription (xocl-awl-duygjnz or OTC) medications contain aspirin. If you are unsure whether a medication you take has aspirin, please ask your pharmacist or your surgeon's office. You must ask your surgical team if they want you to continue taking, or stop taking aspirin before your procedure. Medications containing aspirin that should be stopped 7 days before surgery: Patricia-Chadwick Anacin Aspirin Fiorinal Ascriptin Tonia Bufferin Lortab ASA Darvon Ecotrin Excedrin Percodan Midol Pepto-Bismol Talwin Examples of Non-Steroidal Anti-Inflammatory Drugs (NSAIDs) that should be stopped 7 days before surgery: Advil (ibuprofen) Aleve (naproxen) Anaprox (naproxen) Arthrotec (diclofenac) Cataflam (diclofenac) Clinoril (sulindac) Daypro (oxaprozin) Disalcidv (salsalate) Feldene (piroxicam) Haltran (ibuprofen) Lodine (etodolac) Medipren (ibuprofen) Midol (ibuprofen) Motrin (ibuprofen) Nalfon (fenoprofen) Naprelan (naproxen) Naprosyn (naproxen) Nuprin (ibuprofen) Orudis (ketoprofen) Relafen (nabumetone) Tolectin (tolmetin) Trilisate (salicylate) Voltaren (diclofenac) Examples of weight-loss products and nutritional or herbal supplements that should be stopped 7 days before surgery: Alpha-lipoic acid Acetyl- l-carnitine Cinnamon Chamomile Creatine Echinacea Ephedra Fish Oil Garlic Rosana Gingko biloba Ginseng Glucosamine- Chondroitin Glutamine Goldenseal L-carnosine Licorice Kava kava Milk thistle Multivitamin Swanton-3 Resveratrol Skullcap Alannah's wort Vitamin E Adipex (phentermine) Elias (orlistat) Hydroxycut Garcinia Cambogia Raspberry Ketones [id number] should be stopped 14 days before surgery You will receive specific instructions regarding your insulin and anti-coagulant/anti-platelet medications (if applicable). documented in this encounter [facility] 08-15-2024 History of Present illness Narrative AUDIOLOGIC EVALUATION Reason for visit: CC: Patient reports aural fullness/pressure and occasional otorrhea in both ears. She reports occasional tinnitus in both ears as well as fluctuating hearing. She notes daily bouts of a floating sensation/lightheadedness that lasts for seconds up to a few minutes at a time. She believes she may have Meniere's, but has not yet been diagnosed. She denies otalgia, history of noise exposure, or history of ear surgery. Previous testing on file from an outside facility on 08/02/21, revealed normal hearing with a mild SNHL notch at 3000 Hz in the right ear and normal hearing in the left. HISTORY: Concerns with hearing: yes- fluctuates Tinnitus: Bilateral, occasional Dizziness: Yes Noise Exposure: No Aural Fullness: Bilateral Otalgia: No Otorrhea: Bilateral Other significant history: None RESULTS: Otoscopic Evaluation: Right Ear: Unremarkable Left Ear: Unremarkable Immittance Measures: Right Ear: Type As Left Ear: Type A Pure Tone Audiometry: Right Ear: Hearing sensitivity is within normal limits 250-8000 Hz with a mild notch at 3000 Hz Left Ear: Hearing sensitivity is within normal limits 250-8000 Hz Asymmetry noted: No Reliability: good Speech Audiometry: SRT/SHOTBLAST EQUIPMENT OPERATOR in good agreement WRS: Right Ear: Excellent (100%) Left Ear: Excellent (100%) RECOMMENDATIONS: Follow up with Dr. Vale Gonsalves Retest as medically necessary Vivien Cardoso, [facility] [employer] documented in this encounter [facility] 07-11-2024 Telephone encounter Note The following approved medication requests have been transmitted electronically. Requested Prescriptions Signed Prescriptions Disp Refills metFORMIN ER (GLUCOPHAGE XR) 500 mg 24 hr tablet 90 tablet 3 Sig: Take 1 tablet by mouth daily with breakfast. Authorizing Provider: IRINA MORENO Refused Prescriptions Disp Refills metFORMIN ER (GLUMETZA) 500 mg 24 hr tablet [Pharmacy Med Name: METFORMIN ER 500 MG GASTRC-TB] 90 tablet 3 Sig: TAKE 1 TABLET BY MOUTH EVERY DAY WITH DINNER Refused By: IRINA MORENO Reason for Refusal: A Refill not appropriate Irina Moreno MD [facility] 07-11-2024 Miscellaneous Notes The following approved medication requests have been transmitted electronically. Requested Prescriptions Signed Prescriptions Disp Refills metFORMIN ER (GLUCOPHAGE XR) 500 mg 24 hr tablet 90 tablet 3 Sig: Take 1 tablet by mouth daily with breakfast. Authorizing Provider: IRINA MORENO Refused Prescriptions Disp Refills metFORMIN ER (GLUMETZA) 500 mg 24 hr tablet [Pharmacy Med Name: METFORMIN ER 500 MG GASTRC-TB] 90 tablet 3 Sig: TAKE 1 TABLET BY MOUTH EVERY DAY WITH DINNER Refused By: IRINA MORENO Reason for Refusal: A Refill not appropriate Irina Moreno MD Images from the original note were not included. Most recent Endocrinology visit: Last encounter Visit on 07/11/2024 (with Irina Moreno) 04/21/2024 in [facility] with IRINA MORENO for Juvenile hypophosphatasia 05/22/2024 in [facility] with IRINA MORENO for Type 2 diabetes mellitus without complication, without long-term current use of insulin (HCC) 07/11/2024 in ENDO MAIN with IRINA MORENO for Juvenile hypophosphatasia Upcoming Endocrinology Appointments - Next 365 Days Visit Type Date Time Department VIDEO SPEC EST 07/11/2024 12:20 PM ENDO MAIN EST [facility] PATIENT 07/23/2024 12:00 PM ENDO MAIN Requested Prescriptions Pending Prescriptions Disp Refills metFORMIN ER (GLUMETZA) 500 mg 24 hr tablet [Pharmacy Med Name: METFORMIN ER 500 MG GASTRC-TB] 90 tablet 3 Sig: TAKE 1 TABLET BY MOUTH EVERY DAY WITH DINNER Latest Ref Rng & Units 05/22/2024 Hemoglobin A1C Hemoglobin A1C (POCT) 4.3 - 5.6 % 7.0 Latest Ref Rng & Units 05/22/2024 TSH TSH 0.270 - 4.200 mIU/L 0.719 Free T3: None on file in the last 12 months Free T4: None on file in the last 12 months Thyroglobulin: None on file in the last 12 months Vitamin D: None on file in the last 12 months Hematocrit: None on file in the last 12 months Latest Ref Rng & Units 05/22/2024 Creatinine Creatinine 0.58 - 0.96 mg/dL 0.71 Latest Ref Rng & Units 05/22/2024 eGFR EGFR >=60 mL/min/1.73m 114 Latest Ref Rng & Units 05/22/2024 Potassium Potassium 3.7 - 5.1 mmol/L 4.3 Latest Ref Rng & Units 05/22/2024 Testosterone Testosterone Free 1.3 - 9.2 pg/mL 6.4 IGF: None on file in the last 12 months Prolactin: None on file in the last 12 months documented in this encounter [facility] 07-11-2024 Telephone encounter Note Images from the original note were not included. Most recent Endocrinology visit: Last encounter Visit on 07/11/2024 (with Irina Moreno) 04/21/2024 in [facility] with IRINA MORENO for Juvenile hypophosphatasia 05/22/2024 in [facility] with IRINA MORENO for Type 2 diabetes mellitus without complication, without long-term current use of insulin (HCC) 07/11/2024 in ENDO MAIN with IRINA MORENO for Juvenile hypophosphatasia Upcoming Endocrinology Appointments - Next 365 Days Visit Type Date Time Department VIDEO SPEC EST 07/11/2024 12:20 PM ENDO MAIN EST [facility] PATIENT 07/23/2024 12:00 PM ENDO MAIN Requested Prescriptions Pending Prescriptions Disp Refills metFORMIN ER (GLUMETZA) 500 mg 24 hr tablet [Pharmacy Med Name: METFORMIN ER 500 MG GASTRC-TB] 90 tablet 3 Sig: TAKE 1 TABLET BY MOUTH EVERY DAY WITH DINNER Latest Ref Rng & Units 05/22/2024 Hemoglobin A1C Hemoglobin A1C (POCT) 4.3 - 5.6 % 7.0 Latest Ref Rng & Units 05/22/2024 TSH TSH 0.270 - 4.200 mIU/L 0.719 Free T3: None on file in the last 12 months Free T4: None on file in the last 12 months Thyroglobulin: None on file in the last 12 months Vitamin D: None on file in the last 12 months Hematocrit: None on file in the last 12 months Latest Ref Rng & Units 05/22/2024 Creatinine Creatinine 0.58 - 0.96 mg/dL 0.71 Latest Ref Rng & Units 05/22/2024 eGFR EGFR >=60 mL/min/1.73m 114 Latest Ref Rng & Units 05/22/2024 Potassium Potassium 3.7 - 5.1 mmol/L 4.3 Latest Ref Rng & Units 05/22/2024 Testosterone Testosterone Free 1.3 - 9.2 pg/mL 6.4 IGF: None on file in the last 12 months Prolactin: None on file in the last 12 months [facility] 07-11-2024 Note HNO ID: [id number] Author: IRINA MORENO MD Service: ? Author Type: Physician Type: Progress Notes Filed: 07/11/2024 12:38 Note Text: Endocrine consult note Follow-up for juvenile onset onset hypophosphatasia, type 2 diabetes, hyperlipidemia, and PCOS. LV July 11, 2024 Virtual visit, patient consented to treatment I have communicated my name and active licensure. The patient's identity and physical location were verified at the time of this visit. Either the patient or their legal sales support representative has been informed of the risks and benefits of -- and alternatives to -- treatment through a remote evaluation and consents to proceed with the evaluation remotely. 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 On treatment but subtherapeutic dose. Diagnosed after having low alk phos levels. Patient has generalized pain, mind fogginess, and severe dental issues. On treatment. No longer need a cane. Diagnosed locally by Dr Lennon with genetic testing. Patient on treatment but taking medication every other week since she reports injection site reactions. Genetic testing below. Patient has son who was born in 2020 and also has juvenile onset hypophosphotasia. Ongoing sxs on lower dose of asfotase gwendolyn. I increased dosing to 3x/week (full dose) but patient unable to take all these doses due to injection site issues Still with cramping, etc Also has type 2 diabetes. On insulin pump. Met with educator. On t slim A1c 7% last visit. Issues with high values and low values but improvement in 24 hours after adjusting pump to settings we had discussed last visit. Now doing ok. Basal rates: MN - MN: 0.8 units/hr 1:40 ISF 1:12 carb ratio Target 110 Lives with daughter born in 2018, son born in 2020. Min exercise. Son with HPP too. Also has PCOS. Irregular periods. Has hirsutism, acne. 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 Unable to lose weight. On mounjaro 2.5 mg WEEKLY. Wants to restart metformin. Lastly, reports muscle pain with atorvastatin. Open to rouvastatin. Otherwise, no other acute complaints or concerns today. Answers submitted by the patient for this visit: Core Review of Systems (Submitted on 05/21/2024) Fever : No Night sweats: No Recent unintentional weight change: No Nasal Congestion: Yes Hearing Loss: Yes Vision Disturbance: No A cough: Yes Difficulty Breathing?: No Chest pain: No Irregular heartbeat: No Leg Swelling: No Nausea: No Diarrhea: No Black tarry stools: No Difficulty Urinating?: No Awaken at Night More Than Once to Urinate?: No Muscle aches: Yes Leg or Foot Discomfort at Night?: No A rash: No Dizziness: Yes Headaches: No Memory Loss: Yes Seizures: No Patient's Past Family and Social history have been reviewed with the patient, and updated as appropriate. Please see relevant sections in [facility] EHR for details. PHYSICAL EXAM: LMP 05/09/2024 There is no height or weight on file to calculate BMI. General: WNWD, NAD DATA REVIEW: Latest Ref Rng 05/22/2024 Albumin 3.9 - 4.9 g/dL 4.6 Calcium 8.5 - 10.2 mg/dL 9.8 Phosphorus 2.7 - 4.8 mg/dL 3.8 Glucose 74 - 99 mg/dL 139 (H) BUN 7 - 21 mg/dL 12 Creatinine 0.58 - 0.96 mg/dL 0.71 Sodium 136 - 144 mmol/L 139 Potassium 3.7 - 5.1 mmol/L 4.3 Chloride 98 - 107 mmol/L 102 CO2 22 - 30 mmol/L 25 Anion Gap 8 - 15 mmol/L 12 eGFR >=60 mL/min/1.73m? 114 Total Cholesterol, Nonfasting <200 mg/dL 257 (H) Triglycerides, Nonfasting <150 mg/dL 174 (H) HDL Cholesterol, Nonfasting >39 mg/dL 47 LDL Cholesterol, Nonfasting <100 mg/dL 175 (H) Non HDL Cholesterol, Nonfasting <130 mg/dL 210 (H) VLDL Cholesterol, Nonfasting <30 mg/dL 35 (H) Total Chol/HDL Ratio, Nonfasting <5.10 mg/dL 5.47 (H) LDL/HDL Ratio, Nonfasting <2.54 mg/dL 3.72 (H) Sex Hormone Bind GLB 25 - 122 nmol/L 30 Testosterone Total 9 - 55 ng/dL 37 Testosterone Free 1.3 - 9.2 pg/mL 6.4 Testo Bioavailable 4.1 - 25.5 ng/dL 18.2 Glutamic Acid Decarboxylas Ab Qualitative Negative Negative Glutamic Acid Decarboxylase Ab <=5.0 IU/mL <5.0 Magnesium 1.7 - 2.3 mg/dL 2.2 DHEA-S 60.9 - 337.0 ug/dL 60.7 (L) TSH 0.270 - 4.200 mIU/L 0.719 C-Peptide 1.1 - 4.4 ng/mL 4.5 (H) Islet Cell Ab <1:4 <1:4 01/14/2024 Total testosterone: 48 TSH: 0.81 Free T4; 1.07 (0.61 to 1.6) FSH: 10.1 LH: 8.6 A1c; 7 : Na; 137 10/19/2023 Impression/plan: 34 year old female with HPP, type 2 diabetes, PCOS, obesity HPP Start giving all doses of asfotase gwendolyn - only taking 30%- or at least two doses Get labs done prior to next visit Long discussion re; pathophysiology, etc of disease last visit 2. Type 2 diabetes Continue current pump settings Get labs Update me if there are concerns again Continue mounjaro. Restart metformin 500 ER daily 3. Hyperlipidemia Change to crestor 5 mg ONCE WEEKLY- if ok, inc to 2x/week Repeat labs 4. PCOS Labs ok from last visit Ma (more content not included)... [facility] 07-11-2024 History of Present illness Narrative Images from the original note were not included. Endocrine consult note Follow-up for juvenile onset onset hypophosphatasia, type 2 diabetes, hyperlipidemia, and PCOS. LV July 11, 2024 Virtual visit, patient consented to treatment I have communicated my name and active licensure. The patient's identity and physical location were verified at the time of this visit. Either the patient or their legal sales support representative has been informed of the risks and benefits of -- and alternatives to -- treatment through a remote evaluation and consents to proceed with the evaluation remotely. 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 On treatment but subtherapeutic dose. Diagnosed after having low alk phos levels. Patient has generalized pain, mind fogginess, and severe dental issues. On treatment. No longer need a cane. Diagnosed locally by Dr Lennon with genetic testing. Patient on treatment but taking medication every other week since she reports injection site reactions. Genetic testing below. Patient has son who was born in 2020 and also has juvenile onset hypophosphotasia. Ongoing sxs on lower dose of asfotase gwendolyn. I increased dosing to 3x/week (full dose) but patient unable to take all these doses due to injection site issues Still with cramping, etc Also has type 2 diabetes. On insulin pump. Met with educator. On t slim A1c 7% last visit. Issues with high values and low values but improvement in 24 hours after adjusting pump to settings we had discussed last visit. Now doing ok. Basal rates: MN - MN: 0.8 units/hr 1:40 ISF 1:12 carb ratio Target 110 Lives with daughter born in 2018, son born in 2020. Min exercise. Son with HPP too. Also has PCOS. Irregular periods. Has hirsutism, acne. 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 Unable to lose weight. On mounjaro 2.5 mg WEEKLY. Wants to restart metformin. Lastly, reports muscle pain with atorvastatin. Open to rouvastatin. Otherwise, no other acute complaints or concerns today. Answers submitted by the patient for this visit: Core Review of Systems (Submitted on 05/21/2024) Fever : No Night sweats: No Recent unintentional weight change: No Nasal Congestion: Yes Hearing Loss: Yes Vision Disturbance: No A cough: Yes Difficulty Breathing?: No Chest pain: No Irregular heartbeat: No Leg Swelling: No Nausea: No Diarrhea: No Black tarry stools: No Difficulty Urinating?: No Awaken at Night More Than Once to Urinate?: No Muscle aches: Yes Leg or Foot Discomfort at Night?: No A rash: No Dizziness: Yes Headaches: No Memory Loss: Yes Seizures: No Patient's Past Family and Social history have been reviewed with the patient, and updated as appropriate. Please see relevant sections in epic EHR for details. PHYSICAL EXAM: LMP 05/09/2024 There is no height or weight on file to calculate BMI. General: WNWD, NAD DATA REVIEW: Latest Ref Rng 05/22/2024 Albumin 3.9 - 4.9 g/dL 4.6 Calcium 8.5 - 10.2 mg/dL 9.8 Phosphorus 2.7 - 4.8 mg/dL 3.8 Glucose 74 - 99 mg/dL 139 (H) BUN 7 - 21 mg/dL 12 Creatinine 0.58 - 0.96 mg/dL 0.71 Sodium 136 - 144 mmol/L 139 Potassium 3.7 - 5.1 mmol/L 4.3 Chloride 98 - 107 mmol/L 102 CO2 22 - 30 mmol/L 25 Anion Gap 8 - 15 mmol/L 12 eGFR >=60 mL/min/1.73m 114 Total Cholesterol, Nonfasting <200 mg/dL 257 (H) Triglycerides, Nonfasting <150 mg/dL 174 (H) HDL Cholesterol, Nonfasting >39 mg/dL 47 LDL Cholesterol, Nonfasting <100 mg/dL 175 (H) Non HDL Cholesterol, Nonfasting <130 mg/dL 210 (H) VLDL Cholesterol, Nonfasting <30 mg/dL 35 (H) Total Chol/HDL Ratio, Nonfasting <5.10 mg/dL 5.47 (H) LDL/HDL Ratio, Nonfasting <2.54 mg/dL 3.72 (H) Sex Hormone Bind GLB 25 - 122 nmol/L 30 Testosterone Total 9 - 55 ng/dL 37 Testosterone Free 1.3 - 9.2 pg/mL 6.4 Testo Bioavailable 4.1 - 25.5 ng/dL 18.2 Glutamic Acid Decarboxylas Ab Qualitative Negative Negative Glutamic Acid Decarboxylase Ab <=5.0 IU/mL <5.0 Magnesium 1.7 - 2.3 mg/dL 2.2 DHEA-S 60.9 - 337.0 ug/dL 60.7 (L) TSH 0.270 - 4.200 mIU/L 0.719 C-Peptide 1.1 - 4.4 ng/mL 4.5 (H) Islet Cell Ab <1:4 <1:4 01/14/2024 Total testosterone: 48 TSH: 0.81 Free T4; 1.07 (0.61 to 1.6) FSH: 10.1 LH: 8.6 A1c; : Na; 137 10/19/2023 Impression/plan: 34 year old female with HPP, type 2 diabetes, PCOS, obesity HPP Start giving all doses of asfotase gwendolyn - only taking 30%- or at least two doses Get labs done prior to next visit Long discussion re; pathophysiology, etc of disease last visit 2. Type 2 diabetes Continue current pump settings Get labs Update me if there are concerns again Continue mounjaro. Restart metformin 500 ER daily 3. Hyperlipidemia Change to crestor 5 mg ONCE WEEKLY- if ok, inc to 2x/week Repeat labs 4. PCOS Labs ok from last visit May need provera. See MATH SPECIALIST for irregular and PMDD. Add exercise daily On disability now so there is time when kids are in school. Advised patient that I will release labs to [facility]. If patient does not hear from me regarding lab results within 1-2 weeks of having them obtained, patient is to call me. Return: 1 months All questions answered. No barriers for understanding. Irina Moreno MD Department of Endocrinology July 11, 2024 documented in this encounter [facility] 07-04-2024 History of Present illness Narrative Associated Problem(s): Generalized abdominal pain Diffuse TTP and unclear etiology. Possibly related to constipation. Check x-ray. Resume fiber supplement and miralax. If no improvement will need labs and CT abdomen. Images from the original note were not included. Subjective Patient ID: Aida Dunn is a 34 y.o. female who presents for Back Pain and Abdominal Pain (Swollen and tender to touch). C/o abdominal pain for 1 week. Pain across entire abdomen and into lower abdomen. Pain comes and goes and c/o cramping. Notice abdomen more distended and feels bloated. Normal appetite and no emesis or diarrhea. Abdomen more distended after eating. Severe nausea. Afebrile. No diarrhea. Reports daily BM but history of constipation. No change in pain or bloating after BM. Pain into low back and flank. No change in back pain with activity and not tender to palpation. Review of Systems Respiratory: Negative for cough, shortness of breath and wheezing. Cardiovascular: Negative for chest pain and palpitations. Gastrointestinal: Positive for abdominal pain and nausea. Negative for diarrhea and vomiting. Genitourinary: Negative for dysuria. Objective Physical Exam Constitutional: General: She is not in acute distress. Appearance: Normal appearance. HENT: Head: Normocephalic. Right Ear: Tympanic membrane normal. Left Ear: Tympanic membrane normal. Eyes: Extraocular Movements: Extraocular movements intact. Pupils: Pupils are equal, round, and reactive to light. Cardiovascular: Rate and Rhythm: Normal rate and regular rhythm. Heart sounds: No murmur heard. No friction rub. No gallop. Pulmonary: Effort: Pulmonary effort is normal. Breath sounds: Normal breath sounds. No wheezing, rhonchi or rales. Abdominal: General: Bowel sounds are normal. Palpations: Abdomen is soft. Tenderness: There is no guarding or rebound. Comments: Diffuse TTP Musculoskeletal: Cervical back: Neck supple. Right lower leg: No edema. Left lower leg: No edema. Neurological: Mental Status: She is alert. Assessment/Plan Problem List Items Addressed This Visit Generalized abdominal pain - Primary Diffuse TTP and unclear etiology. Possibly related to constipation. Check x-ray. Resume fiber supplement and miralax. If no improvement will need labs and CT abdomen. Relevant Orders XR abdomen 2 views supine and decubitus documented in this encounter [facility] 06-25-2024 Telephone encounter Note Pending script for your review per patient request. [facility] 06-25-2024 Miscellaneous Notes Pending script for your review per patient request. documented in this encounter [facility] 06-25-2024 Note HNO ID: [id number] Author: ROXI PALAFOX RN Service: ? Author Type: Registered Nurse Type: Progress Notes Filed: 06/25/2024 12:30 Note Text: DIABETES SELF-MANAGEMENT EDUCATION AND SUPPORT Location: [place] Type of visit: Virtual (with video) individual I have communicated my name and active licensure. The patient's identity and physical location were verified at the time of this visit. Either the patient or their legal sales support representative has been informed of the risks and benefits of -- and alternatives to -- treatment through a remote evaluation and consents to proceed with the evaluation remotely. 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 Patient states he/she is located at home/work and is the [facility] for duration of this visit. Types of DSMES: Initial/Comprehensive (add to or update ADA spreadsheet) PATIENT'S MAIN CONCERN TODAY: high blood sugars last 2 weeks on Tandem T Slim pump, blood sugars are better off pump and using MDI Support person present for education today: none Cognitive ability: Alert and oriented Motivation to learn: Interested Learning barriers identified by educator: none Method of instruction: written and verbal INTERVENTIONS/TOPICS COVERED: -Diabetes Pathophysiology: diabetes disease process and role of insulin in the body -Monitoring: CGM basics AND daily use, CGM type: Dexcom G7, [id number] (TIR), and using a home glucose monitor TIR over last 14 days from Dexcom CGM per patient: Very high: 2% High 22% 76% time in range 0% low/very low -Healthy Eating: impact of carbs on BG, Plate Method, basic carb counting, foods with carbs, portion sizes, fiber, reading food labels, recommendation for 30-60 g carb per meal, eating out, and carb counting tools (books, Internet, smartphone apps) Importance of being accurate when entering carbs into pump. Food recall was done and patient may be underestimating some meals. Patient admits to not always entering carbs for snacks or some meals. Suggested using [employer] aditya for help, especially when eating out. Patient states she has pizza and was advised to add a veggie starter prior to eating high carb foods, consider using an extended bolus feature, always pair protein and/or healthy fat with carbs and try eating veggies and protein first and carbs last to see if that prevents blood sugar spikes -Medications: medication safety/timing, insulin storage, site selection/rotation, reviewed home DM meds, prebolusing, and insulin pump instruction: pump requirements of user, insulin pump types/pros/cons, infusion set types, infusion set rotation, extended boluses, and insulin pump terminology: basal, bolus, sensitivity/correction factor, carb ratio, BG target, and qfyrquf-hh-nuvns/duration -Physical Activity: benefits of exercise, impact of exercise on BG, and types of exercise -Acute Complications: hypoglycemia s/sx/tx and hyperglycemia s/sx/tx -Chronic Complications: importance of BG control to reduce risks -Healthy Coping and Support: impact of stress on BG, stress management techniques, and benefits of a support system, types of support (ex:family, friends, support groups, diabetes groups on social media) DIABETES ASSESSMENT: Referring Physician: Irina Moreno Previous Diabetes Education? No What are you hoping to gain from this visit? Not sure In your words, what is diabetes? asked/not answered What concerns you about having diabetes? asked/not answered Diabetes History: Type of Diabetes: Type 2 What year were you diagnosed? asked/not answered - been on Tandem T slim pump since 2020 Does anyone in your family have diabetes? yes mother How do you learn best? listening, observing , reading, and doing Demographics: Highest level of education: asked/not answered Race/Ethnic Origin: White/ Does your culture or confucianism require any of the following: No cultural/adventist practices affecting DM Do you have problems with: No difficulty seeing/hearing/reading/writing/s peaking Occupation: not currently working Work hours: n/A Support System: How often does someone help you read hospital materials? never How often does someone help you read your pill bottles? never How often does someone have to help you take care of your diabetes? 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 asked/not answered Do any of the following things get in the way of managing your diabetes? Stress Health History: Most recent eye exam: consult ordered by provider, needs updated eye exam Most recent dental exam:Asked/not answered Most recent foot exam:Asked/not answered How often do you inspect your feet at home? Asked/Not answered Do you use tobacco? No Do you use alcohol? No In the past 12 months (more content not included)... [facility] 06-25-2024 History of Present illness Narrative DIABETES SELF-MANAGEMENT EDUCATION AND SUPPORT Location: [place] Type of visit: Virtual (with video) individual I have communicated my name and active licensure. The patient's identity and physical location were verified at the time of this visit. Either the patient or their legal sales support representative has been informed of the risks and benefits of -- and alternatives to -- treatment through a remote evaluation and consents to proceed with the evaluation remotely. 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 Patient states he/she is located at home/work and is the [facility] for duration of this visit. Types of DSMES: Initial/Comprehensive (add to or update ADA spreadsheet) PATIENT'S MAIN CONCERN TODAY: high blood sugars last 2 weeks on Tandem T Slim pump, blood sugars are better off pump and using MDI Support person present for education today: none Cognitive ability: Alert and oriented Motivation to learn: Interested Learning barriers identified by educator: none Method of instruction: written and verbal INTERVENTIONS/TOPICS COVERED: -Diabetes Pathophysiology: diabetes disease process and role of insulin in the body -Monitoring: CGM basics & daily use, CGM type: Dexcom G7, cxyb-of-nfalg (TIR), and using a home glucose monitor TIR over last 14 days from Dexcom CGM per patient: Very high: 2% High 22% 76% time in range 0% low/very low -Healthy Eating: impact of carbs on BG, Plate Method, basic carb counting, foods with carbs, portion sizes, fiber, reading food labels, recommendation for 30-60 g carb per meal, eating out, and carb counting tools (books, Internet, smartphone apps) Importance of being accurate when entering carbs into pump. Food recall was done and patient may be underestimating some meals. Patient admits to not always entering carbs for snacks or some meals. Suggested using [employer] aditya for help, especially when eating out. Patient states she has pizza and was advised to add a veggie starter prior to eating high carb foods, consider using an extended bolus feature, always pair protein and/or healthy fat with carbs and try eating veggies and protein first and carbs last to see if that prevents blood sugar spikes -Medications: medication safety/timing, insulin storage, site selection/rotation, reviewed home DM meds, prebolusing, and insulin pump instruction: pump requirements of user, insulin pump types/pros/cons, infusion set types, infusion set rotation, extended boluses, and insulin pump terminology: basal, bolus, sensitivity/correction factor, carb ratio, BG target, and ntlmqya-xv-ijojn/duration -Physical Activity: benefits of exercise, impact of exercise on BG, and types of exercise -Acute Complications: hypoglycemia s/sx/tx and hyperglycemia s/sx/tx -Chronic Complications: importance of BG control to reduce risks -Healthy Coping and Support: impact of stress on BG, stress management techniques, and benefits of a support system, types of support (ex:family, friends, support groups, diabetes groups on social media) DIABETES ASSESSMENT: Referring Physician: Irina Moreno Previous Diabetes Education? No What are you hoping to gain from this visit? Not sure In your words, what is diabetes? asked/not answered What concerns you about having diabetes? asked/not answered Diabetes History: Type of Diabetes: Type 2 What year were you diagnosed? asked/not answered - been on Tandem T slim pump since 2020 Does anyone in your family have diabetes? yes mother How do you learn best? listening, observing , reading, and doing Demographics: Highest level of education: asked/not answered Race/Ethnic Origin: White/ Does your culture or confucianism require any of the following: No cultural/adventist practices affecting DM Do you have problems with: No difficulty seeing/hearing/reading/writing/s peaking Occupation: not currently working Work hours: n/A Support System: How often does someone help you read hospital materials? never How often does someone help you read your pill bottles? never How often does someone have to help you take care of your diabetes? 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 asked/not answered Do any of the following things get in the way of managing your diabetes? Stress Health History: Most recent eye exam: consult ordered by provider, needs updated eye exam Most recent dental exam:Asked/not answered Most recent foot exam:Asked/not answered How often do you inspect your feet at home? Asked/Not answered Do you use tobacco? No Do you use alcohol? No In the past 12 months have you had any: Hospital Admissions: No ER Visits: Yes, Number of Times? 4 Primary Care Visits: Yes What are your general feelings about you overall health? Asked/not answered Medical Issues/Complications: PCOS PAST MEDICAL HISTORY Diagnosis Date Juvenile hypophosphatasia Meniere's disease PCOS (polycystic ovarian syndrome) POTS (postural orthostatic tachycardia syndrome) Type 2 diabetes mellitus (HCC) Most recent A1C Lab Results Component Value Date HBA1C 7.0 05/22/2024 Physical Activity: Do you do a regular exercise? No Sick Days: How do you manage your diabetes when you are sick? Check blood sugar more often, Drink more fluids, and Call my doctor Sleep: Do you get at least 7 hrs of sleep most nights? No - usually 6-7 average Current Outpatient Medications Medication Sig STRENSIQ 80 mg/0.8 mL soln Inject 2 mg/kg three times per week as directed. Rotate sites. 1855.28 DEXCOM G7 SENSOR eduar CHANGE EVERY 10 DAYS ONETOUCH VERIO FLEX METER USE DIRECTED TO TEST BLOOD SUGAR ONE TIME DAILY famotidine (PEPCID) 40 mg tablet Take 1 tablet by mouth once daily. hydrOXYzine HCl (ATARAX) 25 mg tablet Take 25 mg by mouth as needed for anxiety. fluticasone (FLONASE) 50 mcg/actuation nasal spray Use 1 Sigurd in each nostril as needed for cold/allergy symptoms. insulin lispro (HUMALOG) 100 unit/mL injection 50 units a day per insulin pump labetalol (TRANDATE) 100 mg tablet Take 100 mg by mouth two times a day. ONETOUCH DELICA PLUS LANCET 33 gauge USE DIRECTED TO TEST BLOOD SUGAR ONE TIME DAILY tirzepatide (MOUNJARO) 2.5 mg/0.5 mL pen injector Inject 2.5 mg subcutaneously one time a week. Take 2.5 mg weekly subcut Cetirizine 10 mg cap Take by mouth once daily. Does not take Cetirizine at present, while she is taking Antivert levothyroxine (SYNTHROID) 25 mcg tablet Take 25 mcg by mouth daily before breakfast. hydrochlorothiazide 25 mg tablet Take 25 mg by mouth once daily. metFORMIN ER 500 mg 24 hr tablet Take 500 mg by mouth daily with breakfast. mometasone (NASONEX) 50 mcg/actuation nasal spray Use 2 Sprays in the nose once daily. meclizine 25 mg Tab Take 25 mg by mouth three times daily as needed. Cholecalciferol, Vitamin D3, (VITAMIN D-3) 2,000 unit cap Take by mouth once daily. Ibuprofen 200 mg cap Take by mouth. Takes up to four tablets once daily only as needed No current facility-administered medications for this visit. Medications for Diabetes: Name of Medication Dose When taken How often missed reviewed Injections Technique: Do you take insulin or a medication you inject for your diabetes? Yes;then if so answer the following questions: How do you inject your medicine Pump, How often then do you change your infusion sites? 3 days - using True Steel, recommended change every 2 days to avoid infection site issues Where are your injections done? Stomach/abdomen Who prepares your syringes, pen, or pump infusion set? Self Who gives you injections or changes your pump sites? Me Where do you throw away your needles? asked/not answered Patient notes that she has been off her pump the last 2 days because her blood sugars have been higher on the pump than off the pump. She feels sick when on the pump, feeling sweaty, dizzy, etc. Se notes that she is confirming her CGM with a fingerstick and knows how to calibrate. Patient noted that she thinks she may have had bad insulin as she noted some particles in the vial. Patient was asked to check to be sure the vials have not or been sitting out past 28 day shelf life. Patient also noted she is wearing the True Steel infusion set and changing 3 days vs. Recommended 2 days. She noted that it hurts when inserted and has noted bruising at the insertion sites. Patient was advised to try changing every 2 days as recommended and make sure the site is good, no scar tissue, etc. Glucose Monitoring: Device: CGM (type: Dexcom G7) and fingerstick meter (type: One Touch) Checking frequency: continuous (using CGM) Checking times: continuous (using CGM) How are glucose levels shared with diabetes provider? device is linked to provider's office Lancet disposal: asked/not answered Management of Low Blood Sugar: What has been your lowest blood sugar in the last month? No reported lows What are your symptoms of lows?Shaky, Sweaty, and Dizzy/lightheaded How do you treat lows? Snack Do you drive? yes If you are on a pump or MDI, do you have a prescription for Glucagon? no Management of High Blood Sugar: What has been you highest blood sugar in the last month? 300s What are your symptoms of highs? Other sick , dizzy, nauseous, sweaty How do you treat your highs? Water, walk Meal Planning: Are you currently following any meal plan? Carb counting - not consistent Who does the cooking in your house? Self Who does the grocery shopping? Self How often do you eat out? 0-1x/week How many meals do you eat per day? Three Which meals do you tend to skip? None Beverages: water Food recall: Breakfast: honey wheat toast with peanut butter 15-20 carbs entered pump Lunch: cold cut sandwich with small bag of chips 30 ecarbs entered pump Dinner: Hamburger with chips 30 carbs entered pump Snack popcorn Patient may be underestimating carbs at meals and not always entering snacks stating I forget to bolus and let the pump figure it out Reproductive Status (Females): Have you reached menopause? No. Are you currently ? asked/not answered EDUCATION HANDOUTS: Healthy You: Survival Skills, Healthy You: Planning Healthy Meals, and PCOS LEARNING RESPONSE: Diabetes pathophysiology: Demonstrated understanding/competency today or at previous visit Healthy eating: Demonstrated understanding/competency today or at previous visit Being active: Demonstrated understanding/competency today or at previous visit Taking medications: Demonstrated understanding/competency today or at previous visit Monitoring glucose: Demonstrated understanding/competency today or at previous visit Acute complications: Demonstrated understanding/competency today or at previous visit Chronic complications: Demonstrated understanding/competency today or at previous visit Healthy coping: Demonstrated understanding/competency today or at previous visit Diabetes distress and support: Demonstrated understanding/competency today or at previous visit PATIENT SELECTED THE FOLLOWING GOALS: -Healthy eating goal: making better food choices 4: I'm ready to start now , reduce portion sizes 4: I'm ready to start now , follow a meal plan 4: I'm ready to start now , and choose protein and/r healthy fat at all meals, try eating veggies and protein first, carbs last 4: I'm ready to start now -Monitoring goal: track my health status 4: I'm ready to start now and change infusion site every 2 days, watch for signs of infection at site 4: I'm ready to start now POSSIBLE FUTURE TOPICS: 1. The following topics were not assessed due to time limitations, but should be assessed at the next visit: all areas were assessed today or within the last 12 months. 2. The following topics should be taught or reinforced at the next visit: healthy eating , being active, taking medications, monitoring glucose, acute complications, and chronic complications. DIABETES EDUCATION PLAN: Individual follow-up Individual follow-up for patient selected goal(s) with dietitian and/or outreach educator within 2-4 weeks/months via office visit, fromAtoB message, email, or phone call. Contact information provided to patient for outreach educator. Annual diabetes education follow up is important for helping you maintain healthy behaviors and achieve your treatment goals. Medicare programs cover 1 hr of 1:1 instruction and 9 hrs of group education the first year of diagnosis and up to 2 hours of follow up training each year after the initial Diabetes Self-Management Training (DSMT). Commercial insurances for diabetes education coverage may vary based on the plan requirements. Call [phone] to schedule a diabetes education follow up visit. Time Spent (Minutes): 60 This visit note will be communicated to the healthcare provider via access to shared medical record. SIGNATURE: Roxi Palafox RN PATIENT NAME: Aida Dunn DATE: June 25, 2024 TIME: 11:47 AM PAGER: documented in this encounter [facility] 06-17-2024 Telephone encounter Note NO SHOW Virtual diabetes education visit 06/17/24 At 2 pm. fromAtoB message sent to pt to reschedule [facility] 06-17-2024 Miscellaneous Notes NO SHOW Virtual diabetes education visit 06/17/24 At 2 pm. fromAtoB message sent to pt to reschedule documented in this encounter [facility] 06-11-2024 History of Present illness Narrative Associated Problem(s): Type 2 diabetes mellitus with hyperglycemia, with long-term current use of insulin ([facility]) BS elevated and follow with endocrinology. Associated Problem(s): Dysuria UA not suggestive of UTI and send for culture. Glucose in urine and symptoms likely related to elevated BS. Use pyridium for symptoms. Increase water intake and cranberry juice. Use motrin or tylenol for discomfort. Images from the original note were not included. Subjective Patient ID: Aida Dunn is a 34 y.o. female who presents for UTI. Concerned of UTI. Notice urinary symptoms over the past week. Increased frequency and severe urgency. Mild pain and discomfort with urination and after. C/o hesitancy and at times hard to start flow of urine. Other times feels like not emptying all the way. Notice urine darker and at times seems cloudy. C/o cramping in lower abdomen. Trying to increase water intake. Reports BS recently elevated and working with endocrinology. Review of Systems Respiratory: Negative for cough, shortness of breath and wheezing. Cardiovascular: Negative for chest pain and palpitations. Gastrointestinal: Negative for abdominal pain, diarrhea, nausea and vomiting. Genitourinary: Negative for dysuria. Objective Physical Exam Constitutional: General: She is not in acute distress. Appearance: Normal appearance. HENT: Head: Normocephalic. Right Ear: Tympanic membrane normal. Left Ear: Tympanic membrane normal. Eyes: Extraocular Movements: Extraocular movements intact. Pupils: Pupils are equal, round, and reactive to light. Cardiovascular: Rate and Rhythm: Normal rate and regular rhythm. Heart sounds: No murmur heard. No friction rub. No gallop. Pulmonary: Effort: Pulmonary effort is normal. Breath sounds: Normal breath sounds. No wheezing, rhonchi or rales. Abdominal: General: Bowel sounds are normal. There is no distension. Palpations: Abdomen is soft. Tenderness: There is no abdominal tenderness. There is no guarding or rebound. Musculoskeletal: Cervical back: Neck supple. Right lower leg: No edema. Left lower leg: No edema. Neurological: Mental Status: She is alert. Assessment/Plan Problem List Items Addressed This Visit Type 2 diabetes mellitus with hyperglycemia, with long-term current use of insulin ([facility]) BS elevated and follow with endocrinology. Dysuria - Primary UA not suggestive of UTI and send for culture. Glucose in urine and symptoms likely related to elevated BS. Use pyridium for symptoms. Increase water intake and cranberry juice. Use motrin or tylenol for discomfort. Relevant Medications phenazopyridine (Pyridium) 200 MG tablet Other Relevant Orders POCT Urinalysis dipstick (Completed) URINARY TRACT INFECTION (HTRX) documented in this encounter [facility] 06-03-2024 Miscellaneous Notes Noc Technician attempted to reach ou to patient to confirm if coming in for appointment on 04/04 with SK or if they wanted to reschedule due to weather. Voicemail was full unable to leave message. documented in this encounter [facility] 06-03-2024 Telephone encounter Note Noc Technician attempted to reach ou to patient to confirm if coming in for appointment on 04/04 with SK or if they wanted to reschedule due to weather. Voicemail was full unable to leave message. [facility] 06-02-2024 Miscellaneous Notes Noc Technician called patient and left voicemail informing her of her upcoming appointment on 06/04/2024 with PINA in the [place] office, marketing copywriter asked patient for a return call at her earliest convenience. Patient has not had her PAP machine replair/replaced and she has not completed CXR & PFT. documented in this encounter [facility] 06-02-2024 Telephone encounter Note Noc Technician called patient and left voicemail informing her of her upcoming appointment on 06/04/2024 with SK in the [place] office, marketing copywriter asked patient for a return call at her earliest convenience. Patient has not had her PAP machine replair/replaced and she has not completed CXR & PFT. [facility] 06-01-2024 Telephone encounter Note Spoke to patient. High glucose values. She has hand foot and mouth disease. Will send new settings in [facility] to help bring down numbers. Patient verbalized understanding of above instructions. Irina Moreno MD Dept of Endocrinology [facility] 06-01-2024 Miscellaneous Notes Spoke to patient. High glucose values. She has hand foot and mouth disease. Will send new settings in [employer] to help bring down numbers. Patient verbalized understanding of above instructions. Irina Moreno MD Dept of Endocrinology documented in this encounter [facility] 05-23-2024 Telephone encounter Note Forms (OV notes) sent successfully to [place] at [phone]. [facility] 05-23-2024 Miscellaneous Notes Forms (OV notes) sent successfully to [place] at [phone]. [facility] Called [place] to update rx so that it is from [facility] now and for full therapeutic dose. 84 kg updated weight. Faxing forms now too to [place] per request. documented in this encounter [facility] 05-23-2024 Telephone encounter Note Called [place] to update rx so that it is from [facility] now and for full therapeutic dose. 84 kg updated weight. Faxing forms now too to [place] per request. [facility] 05-22-2024 Note Addended by: Rodrigue MORENO on: 05/22/2024 04:15 PM Modules accepted: Orders [facility] 05-22-2024 Miscellaneous Notes Addended by: IRINA MORENO on: 05/22/2024 04:15 PM Modules accepted: Orders documented in this encounter [facility] 05-22-2024 Note HNO ID: [id number] Author: IRINA MORENO MD Service: ? Author Type: Physician Type: Progress Notes Filed: 05/22/2024 16:15 Note Text: Endocrine consult note Ms. Dunn is a 34 year old female here for evaluation, management, and treatment of the following issues: juvenile onset onset hypophosphatasia, type 2 diabetes, and PCOS. 04/21/2024 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 On treatment but subtherapeutic dose. Diagnosed after having low alk phos levels. Patient has generalized pain, mind fogginess, and severe dental issues. On treatment. No longer need a cane. Diagnosed locally by Dr Lennon with genetic testing. Patient on treatment but taking medication every other week since she reports injection site reactions. Genetic testing below. Patient has son who was born in 2020 and also has juvenile onset hypophosphotasia. Ongoing sxs on lower dose of asfotase gwendolyn. Open to increasing dose. Otherwise: On insulin pump for type 2 DM. On t slim A1c 7% today Labile numbers. Carb counting. I made changes to pump but it worsened control. See below. Frustrated. Basal rates: MN - MN: 0.8 units/hr 1:40 ISF 1:12 carb ratio Target 110 A1c: 7% Lives with daughter born in 2018, son born in 2020. Min exercise. Son with HPP too. Also has PCOS. Irregular periods. Has hirsutism, acne. 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 Unable to lose weight. Never tried GLP-1 drugs; not on metformin. Otherwise, no other acute complaints or concerns today. REVIEW OF SYSTEMS: Answers submitted by the patient for this visit: Core Review of Systems (Submitted on 05/21/2024) Fever : No Night sweats: No Recent unintentional weight change: No Nasal Congestion: Yes Hearing Loss: Yes Vision Disturbance: No A cough: Yes Difficulty Breathing?: No Chest pain: No Irregular heartbeat: No Leg Swelling: No Nausea: No Diarrhea: No Black tarry stools: No Difficulty Urinating?: No Awaken at Night More Than Once to Urinate?: No Muscle aches: Yes Leg or Foot Discomfort at Night?: No A rash: No Dizziness: Yes Headaches: No Memory Loss: Yes Seizures: No See HPI. Reviewed remaining ROS and negative x 10 systems PHYSICAL EXAM: BP 126/82 Pulse 92 Wt 83.9 kg (184 lb 15.5 oz) LMP 05/09/2024 There is no height or weight on file to calculate BMI. General: WNWD, NAD Eyes: conjunctivae are pink, no scleral icterus Neck: The thyroid is nonenlarged, no nodule, nontender Lymphatic: no cervical or supraclavicular adenopathy Cardiovascular: regular rate, no murmur Respiratory: full sounds bilaterally with normal expansion Gastrointestinal: deferred Skin: no lipohypertrophy at injection sites, no striae, dorsocervical fat pads, no acanthosis Neurologic: gait intact. DTR?s normal with normal recovery phase Pyschiatric: mood and affect are normal Foot exam: negative for sores, ulcers, lesions. Monofilament intact bilaterally. DATA REVIEW: 01/14/2024 Total testosterone: 48 TSH: 0.81 Free T4; 1.07 (0.61 to 1.6) FSH: 10.1 LH: 8.6 A1c; 7 : Na; 137 10/19/2023 Impression/plan: 34 year old female with HPP, type 2 diabetes, PCOS, obesity HPP Start giving all doses of asfotase gwendolyn - only taking 50% Long discussion re; pathophysiology, etc of disesae Suspect energy, arthritis, mind fogginess will improve See eye doctor for blurry vision to exclude calcifications. Order provided. Will contact [facility] to change rx and put in my name. Get renal ultrasound Check labs today 2. Type 2 diabetes Ensure type 2 diabetes with labs See bread wrapper and educator Spikes with meals. Bolus 10 min prior eating. Add mounjaro. Victoza tried previously. Using T slim MN - MN: 0.8 units/hr Change from 1:40 to 1:32 ISF Change from 1:12 to 1:8 carb ratio Target 110 zully connected to clinic 3. PCOS Check labs May need provera. See MATH SPECIALIST for irregular and PMDD. Add exercise daily On disability now so there is time when kids are in school. Advised patient that I will release labs to [facility]. If patient does not hear from me regarding lab results within 1-2 weeks of having them obtained, patient is to call me. Return: 2 months All questions answered. No barriers for understanding. Irina Moreno MD Department of Endocrinology May 22, 2024 [facility] 05-22-2024 History of Present illness Narrative Images from the original note were not included. Endocrine consult note Ms. Dunn is a 34 year old female here for evaluation, management, and treatment of the following issues: juvenile onset onset hypophosphatasia, type 2 diabetes, and PCOS. 04/21/2024 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 On treatment but subtherapeutic dose. Diagnosed after having low alk phos levels. Patient has generalized pain, mind fogginess, and severe dental issues. On treatment. No longer need a cane. Diagnosed locally by Dr Lennon with genetic testing. Patient on treatment but taking medication every other week since she reports injection site reactions. Genetic testing below. Patient has son who was born in 2020 and also has juvenile onset hypophosphotasia. Ongoing sxs on lower dose of asfotase gwendolyn. Open to increasing dose. Otherwise: On insulin pump for type 2 DM. On t slim A1c 7% today Labile numbers. Carb counting. I made changes to pump but it worsened control. See below. Frustrated. Basal rates: MN - MN: 0.8 units/hr 1:40 ISF 1:12 carb ratio Target 110 A1c: 7% Lives with daughter born in 2018, son born in 2020. Min exercise. Son with HPP too. Also has PCOS. Irregular periods. Has hirsutism, acne. 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 Unable to lose weight. Never tried GLP-1 drugs; not on metformin. Otherwise, no other acute complaints or concerns today. REVIEW OF SYSTEMS: Answers submitted by the patient for this visit: Core Review of Systems (Submitted on 05/21/2024) Fever : No Night sweats: No Recent unintentional weight change: No Nasal Congestion: Yes Hearing Loss: Yes Vision Disturbance: No A cough: Yes Difficulty Breathing?: No Chest pain: No Irregular heartbeat: No Leg Swelling: No Nausea: No Diarrhea: No Black tarry stools: No Difficulty Urinating?: No Awaken at Night More Than Once to Urinate?: No Muscle aches: Yes Leg or Foot Discomfort at Night?: No A rash: No Dizziness: Yes Headaches: No Memory Loss: Yes Seizures: No See HPI. Reviewed remaining ROS and negative x 10 systems PHYSICAL EXAM: BP 126/82 Pulse 92 Wt 83.9 kg (184 lb 15.5 oz) LMP 05/09/2024 There is no height or weight on file to calculate BMI. General: WNWD, NAD Eyes: conjunctivae are pink, no scleral icterus Neck: The thyroid is nonenlarged, no nodule, nontender Lymphatic: no cervical or supraclavicular adenopathy Cardiovascular: regular rate, no murmur Respiratory: full sounds bilaterally with normal expansion Gastrointestinal: deferred Skin: no lipohypertrophy at injection sites, no striae, dorsocervical fat pads, no acanthosis Neurologic: gait intact. DTR s normal with normal recovery phase Pyschiatric: mood and affect are normal Foot exam: negative for sores, ulcers, lesions. Monofilament intact bilaterally. DATA REVIEW: 01/14/2024 Total testosterone: 48 TSH: 0.81 Free T4; 1.07 (0.61 to 1.6) FSH: 10.1 LH: 8.6 A1c; 7 : Na; 137 10/19/2023 Impression/plan: 34 year old female with HPP, type 2 diabetes, PCOS, obesity HPP Start giving all doses of asfotase gwendolyn - only taking 50% Long discussion re; pathophysiology, etc of disesae Suspect energy, arthritis, mind fogginess will improve See eye doctor for blurry vision to exclude calcifications. Order provided. Will contact [facility] to change rx and put in my name. Get renal ultrasound Check labs today 2. Type 2 diabetes Ensure type 2 diabetes with labs See bread wrapper and educator Spikes with meals. Bolus 10 min prior eating. Add mounjaro. Victoza tried previously. Using T slim MN - MN: 0.8 units/hr Change from 1:40 to 1:32 ISF Change from 1:12 to 1:8 carb ratio Target 110 zully connected to clinic 3. PCOS Check labs May need provera. See MATH SPECIALIST for irregular and PMDD. Add exercise daily On disability now so there is time when kids are in school. Advised patient that I will release labs to [facility]. If patient does not hear from me regarding lab results within 1-2 weeks of having them obtained, patient is to call me. Return: 2 months All questions answered. No barriers for understanding. Irina Moreno MD Department of Endocrinology May 22, 2024 documented in this encounter [facility] 05-22-2024 Instructions Abel Zapata MA - 05/22/2024 12:17 PM EST Thank you for choosing the [facility] Department of Endocrinology, Diabetes and Metabolism. Did you know that you need to call 48 hours in advance of your scheduled visit, if you are unable to make your appointment? The Endocrinology and Metabolism [place] thanks you for your commitment, because patients not showing to their appointment results in a lost opportunity for patients to receive [facility] health care at the [facility]. To Cancel an appointment, please choose one of the following: - Call the Appointment Call Center at [phone] - From fromAtoB, Go to Appointments - Cancel Appts If cancelling, consider your need to reschedule to prevent further delays in your care. To Schedule an appointment, please choose one of the following: - Call the Appointment Call Center at [phone] - From fromAtoB, Go to Appointments - Request an Appt documented in this encounter [facility] 05-19-2024 History of Present illness Narrative Associated Problem(s): Acute non-recurrent pansinusitis Take antibiotics BID for 10 days. Use [...] no better or worse call for re-evaluation. Images from the original note were not included. Subjective Patient ID: Aida Dunn is a 34 y.o. female who presents for Ear Fullness, Facial Swelling (Right side swelling), and Sore Throat. C/o cough, congestion, and rhinorrhea x 1 week. Afebrile. Severe fatigue and no energy. Mild cough dry and nonproductive. Denies chest tightness or SOB. MEJIA and sinus pressure in forehead and cheeks along with postnasal drip. Ears plugged and popping. Sore throat and pain to swallow. Mild nausea. Recently exposed to strep. Using OTC medication and mild relief. No improvement in symptoms since onset. Review of Systems Respiratory: Negative for cough, shortness of breath and wheezing. Cardiovascular: Negative for chest pain and palpitations. Gastrointestinal: Negative for abdominal pain, diarrhea, nausea and vomiting. Genitourinary: Negative for dysuria. Objective Physical Exam Constitutional: General: She is not in acute distress. Appearance: Normal appearance. HENT: Head: Normocephalic. Right Ear: Tympanic membrane normal. Left Ear: Tympanic membrane normal. Eyes: Extraocular Movements: Extraocular movements intact. Pupils: Pupils are equal, round, and reactive to light. Cardiovascular: Rate and Rhythm: Normal rate and regular rhythm. Heart sounds: No murmur heard. No friction rub. No gallop. Pulmonary: Effort: Pulmonary effort is normal. Breath sounds: Normal breath sounds. No wheezing, rhonchi or rales. Abdominal: General: Bowel sounds are normal. There is no distension. Palpations: Abdomen is soft. Tenderness: There is no abdominal tenderness. There is no guarding or rebound. Musculoskeletal: Cervical back: Neck supple. Right lower leg: No edema. Left lower leg: No edema. Neurological: Mental Status: She is alert. Assessment/Plan Problem List Items Addressed This Visit GERD without esophagitis Relevant Medications omeprazole (PriLOSEC) [address] capsule Acute non-recurrent pansinusitis - Primary Take antibiotics BID for 10 days. Use [...] no better or worse call for re-evaluation. Relevant Medications amoxicillin-clavulanate (Augmentin) 875-125 MG tablet predniSONE (Deltasone) 50 MG tablet Chronic rhinosinusitis documented in this encounter [facility] 04-21-2024 Note HNO ID: [id number] Author: IRINA MORENO MD Service: ? Author Type: Physician Type: Progress Notes Filed: 04/21/2024 15:00 Note Text: Endocrine consult note Ms. Dunn is a 34 year old female here today at the request of SELF for evaluation, management, and treatment of the following issues: juvenile onset onset hypophosphatasia. Patient has type 2 diabetes and PCOS too. My final recommendations will be communicated back to the requesting physician by way of shared medical record or letter. Virtual visit, patient consented to treatment I have communicated my name and active licensure. The patient's identity and physical location were verified at the time of this visit. Either the patient or their legal sales support representative has been informed of the risks and benefits of -- and alternatives to -- treatment through a remote evaluation and consents to proceed with the evaluation remotely. Ms. Dunn is a 34 year old who presents for following issues: juvenile onset hypophosphatasia. Patient has type 2 diabetes and PCOS. 34 year old with HPP. Diagnosed after having low alk phos levels. Patient has generalized pain, mind fogginess, and severe dental issues. On treatment. No longer need a cane. Diagnosed locally by Dr Lennon with genetic testing. Patient on treatment but taking medication every other week since she reports injection site reactions. Patient has son who was born in 2020 and also has juvenile onset hypophosphotasia. On insulin pump for type 2 DM. On t slim Last A1c has 6.9% Labile numbers. Carb counting. Reports drops after meals and with correction. Cannot download zully. Frustrated. Basal rates: MN - MN: 0.8 units/hr 1:32 ISF 1:8 carb ratio Target 110 Lives with daughter born in 2018, son born in 2020. Min exercise. Son with HPP too. Also has PCOS. Irregular periods. Has hirsutism, acne. 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 Unable to lose weight. Never tried GLP-1 drugs; not on metformin. Otherwise, no other acute complaints or concerns today. PAST MEDICAL HISTORY Diagnosis Date Juvenile hypophosphatasia Meniere's disease PCOS (polycystic ovarian syndrome) POTS (postural orthostatic tachycardia syndrome) Type 2 diabetes mellitus (HCC) PAST SURGICAL HISTORY Procedure Laterality Date SECTION HX L'SCOPE DX W/WO BRUSHINGS/WASHINGS TONSILLECTOMY AND ADENOIDECTOMY Cetirizine 10 mg cap Take by mouth once daily. Does not take Cetirizine at present, while she is taking Antivert levothyroxine (LEVOTHROID) 88 mcg tablet Take 88 mcg by mouth daily before breakfast. hydrochlorothiazide 25 mg tablet Take 25 mg by mouth once daily. metFORMIN ER 500 mg 24 hr tablet Take 500 mg by mouth daily with breakfast. mometasone (NASONEX) 50 mcg/actuation nasal spray Use 2 Sprays in the nose once daily. meclizine 25 mg Tab Take 25 mg by mouth three times daily as needed. Cholecalciferol, Vitamin D3, (VITAMIN D-3) 2,000 unit cap Take by mouth once daily. Ibuprofen 200 mg cap Take by mouth. Takes up to four tablets once daily only as needed ALLERGIES Allergen Reactions Hydrocortisone Other: See Comments steroid cream she placed in ear, caused entire face to swell, doesn't know name of cream Ciprofloxacin Other: See Comments dizzy, loss of equilibrium Social History Tobacco Use Smoking status: Never Smokeless tobacco: Never FAMILY HISTORY Problem Relation Age of Onset Diabetes Mother other (htn) Mother Hyperlipidemia Mother REVIEW OF SYSTEMS: Review of Systems: Answers submitted by the patient for this visit: Endocrine Review of Systems (Submitted on 04/21/2024) Fatigue: Yes Night sweats: Yes Recent unintentional weight change: No Skin Color Changes: No Post-Nasal Drip: Yes Thyroid Pain (lower neck): No Trouble Swallowing: No Vision Disturbance: Yes Chest pain: No Leg Swelling: No Blood Clots?: No Leg Pain while walking?: No Difficulty Breathing?: No Heartburn: Yes Nausea: Yes Vomiting: No Diarrhea: No Constipation: Yes Abdominal pain: No Bone Pain?: Yes Muscle aches: Yes Muscle weakness: Yes Joint pain or stiffness: Yes Headaches: Yes Dizziness: Yes Numbness?: Yes Urgency to Urinate?: No Increased Urination: No Slow or Small Urine Stream?: No Are your menstrual cycles regular?: No Are your menstrual cycles irregular?: Yes Have your menstrual cycles stopped?: No Flushing: No Hot Flashes?: No Increased Thirst: No Change in Body Hair?: Yes Cold Intolerance: No Heat Intolerance: Yes See HPI. Reviewed remaining ROS and negative x 10 systems PHYSICAL EXAM: Virtual DATA REVIEW: 01/14/2024 Total testosterone: 48 TSH: 0.81 Free T4; 1.07 (0.61 to 1.6) FSH: 10.1 LH: 8.6 A1c; 7 : Na; 137 10/19/2023 Impression/plan: 34 year old female with HPP, type 2 diabetes, PCOS, obesity HPP Start giving all doses of asfotase gwendolyn - only ta (more content not included)... [facility] 04-21-2024 History of Present illness Narrative Images from the original note were not included. Endocrine consult note Ms. Dunn is a 34 year old female here today at the request of SELF for evaluation, management, and treatment of the following issues: juvenile onset onset hypophosphatasia. Patient has type 2 diabetes and PCOS too. My final recommendations will be communicated back to the requesting physician by way of shared medical record or letter. Virtual visit, patient consented to treatment I have communicated my name and active licensure. The patient's identity and physical location were verified at the time of this visit. Either the patient or their legal sales support representative has been informed of the risks and benefits of -- and alternatives to -- treatment through a remote evaluation and consents to proceed with the evaluation remotely. Ms. Dunn is a 34 year old who presents for following issues: juvenile onset hypophosphatasia. Patient has type 2 diabetes and PCOS. 34 year old with HPP. Diagnosed after having low alk phos levels. Patient has generalized pain, mind fogginess, and severe dental issues. On treatment. No longer need a cane. Diagnosed locally by Dr Lennon with genetic testing. Patient on treatment but taking medication every other week since she reports injection site reactions. Patient has son who was born in 2020 and also has juvenile onset hypophosphotasia. On insulin pump for type 2 DM. On t slim Last A1c has 6.9% Labile numbers. Carb counting. Reports drops after meals and with correction. Cannot download zully. Frustrated. Basal rates: MN - MN: 0.8 units/hr 1:32 ISF 1:8 carb ratio Target 110 Lives with daughter born in 2018, son born in 2020. Min exercise. Son with HPP too. Also has PCOS. Irregular periods. Has hirsutism, acne. 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 Unable to lose weight. Never tried GLP-1 drugs; not on metformin. Otherwise, no other acute complaints or concerns today. PAST MEDICAL HISTORY Diagnosis Date Juvenile hypophosphatasia Meniere's disease PCOS (polycystic ovarian syndrome) POTS (postural orthostatic tachycardia syndrome) Type 2 diabetes mellitus (HCC) PAST SURGICAL HISTORY Procedure Laterality Date SECTION HX L'SCOPE DX W/WO BRUSHINGS/WASHINGS TONSILLECTOMY & ADENOIDECTOMY <AGE 11 Cetirizine 10 mg cap Take by mouth once daily. Does not take Cetirizine at present, while she is taking Antivert levothyroxine (LEVOTHROID) 88 mcg tablet Take 88 mcg by mouth daily before breakfast. hydrochlorothiazide 25 mg tablet Take 25 mg by mouth once daily. metFORMIN ER 500 mg 24 hr tablet Take 500 mg by mouth daily with breakfast. mometasone (NASONEX) 50 mcg/actuation nasal spray Use 2 Sprays in the nose once daily. meclizine 25 mg Tab Take 25 mg by mouth three times daily as needed. Cholecalciferol, Vitamin D3, (VITAMIN D-3) 2,000 unit cap Take by mouth once daily. Ibuprofen 200 mg cap Take by mouth. Takes up to four tablets once daily only as needed ALLERGIES Allergen Reactions Hydrocortisone Other: See Comments steroid cream she placed in ear, caused entire face to swell, doesn't know name of cream Ciprofloxacin Other: See Comments dizzy, loss of equilibrium Social History Tobacco Use Smoking status: Never Smokeless tobacco: Never FAMILY HISTORY Problem Relation Age of Onset Diabetes Mother other (htn) Mother Hyperlipidemia Mother REVIEW OF SYSTEMS: Review of Systems: Answers submitted by the patient for this visit: Endocrine Review of Systems (Submitted on 04/21/2024) Fatigue: Yes Night sweats: Yes Recent unintentional weight change: No Skin Color Changes: No Post-Nasal Drip: Yes Thyroid Pain (lower neck): No Trouble Swallowing: No Vision Disturbance: Yes Chest pain: No Leg Swelling: No Blood Clots?: No Leg Pain while walking?: No Difficulty Breathing?: No Heartburn: Yes Nausea: Yes Vomiting: No Diarrhea: No Constipation: Yes Abdominal pain: No Bone Pain?: Yes Muscle aches: Yes Muscle weakness: Yes Joint pain or stiffness: Yes Headaches: Yes Dizziness: Yes Numbness?: Yes Urgency to Urinate?: No Increased Urination: No Slow or Small Urine Stream?: No Are your menstrual cycles regular?: No Are your menstrual cycles irregular?: Yes Have your menstrual cycles stopped?: No Flushing: No Hot Flashes?: No Increased Thirst: No Change in Body Hair?: Yes Cold Intolerance: No Heat Intolerance: Yes See HPI. Reviewed remaining ROS and negative x 10 systems PHYSICAL EXAM: Virtual DATA REVIEW: 01/14/2024 Total testosterone: 48 TSH: 0.81 Free T4; 1.07 (0.61 to 1.6) FSH: 10.1 LH: 8.6 A1c; 7 : Na; 137 10/19/2023 Impression/plan: 34 year old female with HPP, type 2 diabetes, PCOS, obesity HPP Start giving all doses of asfotase gwendolyn - only taking 50% Long discussion re; pathophysiology, etc of disesae Suspect energy, arthritis, mind fogginess will improve See eye doctor for blurry vision to exclude calcifications 2. Type 2 diabetes Large drops after eating and with corrections Using T slim MN - MN: 0.8 units/hr 1:32 ISF - change to 1:40 1:8 carb ratio - change to 1:12 Target 110 Come to clinic so zully can be connected after seeing these changes 3. PCOS May need provera Add exercise daily On disability now so there is time when kids are in school. Referral for peds endo made for son today, will try to group appts since patient lives [place] Advised patient that I will release labs to [facility]. If patient does not hear from me regarding lab results within 1-2 weeks of having them obtained, patient is to call me. Return: 2 months All questions answered. No barriers for understanding. Irina Moreno MD Department of Endocrinology April 21, 2024 documented in this encounter [facility] 04-14-2024 History of Present illness Narrative Associated Problem(s): Type 2 diabetes mellitus with hyperglycemia, with long-term current use of insulin (CMS/HCC) BS stable and follow with endocrinology. Associated Problem(s): Postural orthostatic tachycardia syndrome (POTS) Symptoms unchanged and increase fluids. Follow with cardiology. If symptoms persist may need to add midodrine. Associated Problem(s): GERD without esophagitis Symptoms controlled with omeprazole and continue. Associated Problem(s): ISAAC (generalized anxiety disorder) (CMS/HCC) Doing well without medication and monitor. Continue counseling. Associated Problem(s): Chronic rhinosinusitis Symptoms unchanged and follow with ENT. Continue flonase. Associated Problem(s): Benign essential hypertension (CMS/HCC) BP controlled and monitor PRN. Images from the original note were not included. Subjective Patient ID: Aida Dunn is a 34 y.o. female who presents for Sore Throat and Follow-up (6m). Follow up HTN, POTS, allergies, GERD, anxiety, and DM. Patient stable today. Checking BP PRN and typically controlled. BP normal today. Taking medication daily and tolerating without side effects. POTS worse with sinus symptoms. Frequently lightheaded when gets up and standing. Feels heart racing but no LOC. Following with cardiology. Sinus symptoms unchanged. Continued congestion and rhinorrhea. MEJIA and sinus pressure in forehead and cheeks along with postnasal drip. Ears plugged and popping. GERD controlled with omeprazole. Denies epigastric pain or burning and not waking up with symptoms. Anxiety stable without medication. Not as stressed out or overwhelmed. Not as nervous or worry as much. Not as ortega or irritable. BS variable and following with endo. Using insulin pump. Review of Systems Respiratory: Negative for cough, shortness of breath and wheezing. Cardiovascular: Negative for chest pain and palpitations. Gastrointestinal: Negative for abdominal pain, diarrhea, nausea and vomiting. Genitourinary: Negative for dysuria. Objective Physical Exam Constitutional: General: She is not in acute distress. Appearance: Normal appearance. HENT: Head: Normocephalic. Right Ear: Tympanic membrane normal. Left Ear: Tympanic membrane normal. Eyes: Extraocular Movements: Extraocular movements intact. Pupils: Pupils are equal, round, and reactive to light. Cardiovascular: Rate and Rhythm: Normal rate and regular rhythm. Heart sounds: No murmur heard. No friction rub. No gallop. Pulmonary: Effort: Pulmonary effort is normal. Breath sounds: Normal breath sounds. No wheezing, rhonchi or rales. Abdominal: General: Bowel sounds are normal. There is no distension. Palpations: Abdomen is soft. Tenderness: There is no abdominal tenderness. There is no guarding or rebound. Musculoskeletal: Cervical back: Neck supple. Right lower leg: No edema. Left lower leg: No edema. Neurological: Mental Status: She is alert. Assessment/Plan Problem List Items Addressed This Visit ISAAC (generalized anxiety disorder) (CMS/HCC) Doing well without medication and monitor. Continue counseling. Benign essential hypertension (CMS/HCC) - Primary BP controlled and monitor PRN. Type 2 diabetes mellitus with hyperglycemia, with long-term current use of insulin (CMS/[facility]) BS stable and follow with endocrinology. Postural orthostatic tachycardia syndrome (POTS) Symptoms unchanged and increase fluids. Follow with cardiology. If symptoms persist may need to add midodrine. GERD without esophagitis Symptoms controlled with omeprazole and continue. Chronic rhinosinusitis Symptoms unchanged and follow with ENT. Continue flonase. documented in this encounter [facility] 03-10-2024 History of Present illness Narrative Associated Problem(s): Chronic rhinosinusitis Continued symptoms and fluid behind TM. Treat with augmentin x 30 days. Continue flonase and zyrtec. Follow with new ENT. Images from the original note were not included. Subjective Patient ID: Aida Dunn is a 33 y.o. female who presents for Earache (Sharp pains, crackling noise). C/o ears plugged and popping for months and getting worse. Right ear worse than left. Frequent pressure in ear and feels plugged. Occasional pain radiating behind ear. Hearing decreased and muffled. Frequent crackling and often feels like ears need to pop. C/o continued MEJIA and sinus pressure in forehead and cheeks. Frequent postnasal drip. On flonase and zyrtec daily but not helping. Called last week requesting referral to ENT. Review of Systems Respiratory: Negative for cough, shortness of breath and wheezing. Cardiovascular: Negative for chest pain and palpitations. Gastrointestinal: Negative for abdominal pain, diarrhea, nausea and vomiting. Genitourinary: Negative for dysuria. Objective Physical Exam Constitutional: General: She is not in acute distress. Appearance: Normal appearance. HENT: Head: Normocephalic. Right Ear: Tympanic membrane normal. Left Ear: Tympanic membrane normal. Eyes: Extraocular Movements: Extraocular movements intact. Pupils: Pupils are equal, round, and reactive to light. Cardiovascular: Rate and Rhythm: Normal rate and regular rhythm. Heart sounds: No murmur heard. No friction rub. No gallop. Pulmonary: Effort: Pulmonary effort is normal. Breath sounds: Normal breath sounds. No wheezing, rhonchi or rales. Abdominal: General: Bowel sounds are normal. There is no distension. Palpations: Abdomen is soft. Tenderness: There is no abdominal tenderness. There is no guarding or rebound. Musculoskeletal: Cervical back: Neck supple. Right lower leg: No edema. Left lower leg: No edema. Neurological: Mental Status: She is alert. Assessment/Plan Problem List Items Addressed This Visit Chronic rhinosinusitis - Primary Continued symptoms and fluid behind TM. Treat with augmentin x 30 days. Continue flonase and zyrtec. Follow with new ENT. Relevant Medications amoxicillin-clavulanate (Augmentin) 875-125 MG tablet documented in this encounter [facility] 02-19-2024 Miscellaneous Notes Ok to sign and send documented in this encounter [facility] 02-19-2024 Telephone encounter Note Ok to sign and send [facility] 02-18-2024 History of Present illness Narrative Images from the original note were not included. REASON FOR VISIT: Aida Dunn returns today for follow-up of diabetes. DIABETES HISTORY: Type of Diabetes: Type 2 Diabetes Duration of Diabetes: since 2013 INTERVAL HISTORY: Lab Results Component Value Date [id number] 6.6 02/18/2024 [id number] 7.2 (A) 10/17/2023 [id number] 6.7 07/17/2023 [id number] 6.5 12/25/2022 BOREHBZ4W 7.0 08/25/2022 BEDJWQW0L 6.9 04/26/2022 AROWASI4G 5.5 11/25/2020 [id number] 5.7 10/04/2020 She would like to switch to the Dexcom G7. Has been better with the strensiq injections, but still not taking all of them. DIABETES COMPLICATIONS/SURVEILLANCE: Retinopathy: no Last eye exam: overdue Nephropathy: no Peripheral neuropathy: no Autonomic neuropathy: no Macrovascular disease: CAD: no PVD: no Stroke: no Hypertension: yes Dyslipidemia: no GLUCOSE CONTROL: Diabetes medications: Insulin pump Type: Tandem Tslim with Control IQ staying in sleep mode Insulin pump settings can be found in the media portion of this chart. Insulin pump settings reviewed with patient. Blood glucose summary: Patient is checking glucose frequently per continuous glucose sensor Past Medical History: Diagnosis Date Abdominal pain Abnormal involuntary movement Anxiety Asthma 05/16/2016 Autism Bacterial vaginosis Bladder incontinence Goode hump Carpal tunnel syndrome, bilateral Chronic hypertension affecting 01/15/2018 Colitis Constipation Depression Dizziness 03/07/2018 DM type 2 (diabetes mellitus, type 2) ([facility] [place]) Dyslipidemia Edema, lower extremity Fatigue Fibromyalgia Gait disturbance Giddiness Kaleb's thyroiditis Hearing loss 03/07/2018 History of intrauterine History of delivery HPP (hereditary pyropoikilocytosis) ([facility] [place]) ENDOCRINOLOGY IS TESTING TO CONFIRM DIAGNOSIS HPP (hereditary pyropoikilocytosis) ([facility] [place]) HTN (hypertension) Hyperlipidemia Hypophosphatasia Hypothyroid IBS (irritable bowel syndrome) IBS (irritable bowel syndrome) 11/22/2016 Inappropriate sinus node tachycardia ([facility] [place]) Inappropriate sinus tachycardia ([facility] [place]) Intracranial arachnoid cyst Low back pain Meniere's [...] 01/14/2018 Performed by Torsten Talley MD at [facility] OR COLONOSCOPY 2014 normal COLONOSCOPY N/A 03/04/2020 Performed by Salvatore Connors DO at [facility] EGD N/A 03/04/2020 Performed by Salvatore Connors DO at [facility] LAPAROSCOPY 08/2016 scar tissue removal from appendix NASAL SEPTUM SURGERY 2007 TONSILLECTOMY Current Outpatient Medications: albuterol (PROVENTIL HFA;VENTOLIN [...] of breath., Disp: 360 mL, Rfl: 11 atorvastatin (LIPITOR) 20 mg tablet, Take 1 tablet (20 mg total) by mouth in the morning., Disp: , Rfl: blood sugar diagnostic (ONETOUCH VERIO TEST STRIPS) strip, USE DIRECTED TO TEST 1 TIME DAILY, Disp: 100 strip, Rfl: 3 cetirizine (ZyrTEC) 10 mg capsule, Take 1 capsule (10 mg total) by mouth daily., Disp: 30 capsule, Rfl: 11 DEXCOM G7 SENSOR device, Change every 10 days, Disp: 9 each, Rfl: 3 EPINEPHrine (EPIPEN) 0.3 mg/0.3 mL auto-injector, Inject 0.3 mL (0.3 mg total) into the appropriate muscle as needed (allergic reaction)., Disp: 2 each, Rfl: 0 fluticasone propionate (FLONASE) 50 mcg/actuation nasal spray, Administer 1 spray into each nostril daily., Disp: 15.8 mL, Rfl: 11 hydrOXYzine (ATARAX) 25 mg tablet, Take 1 tablet (25 mg total) by mouth 3 (three) times a day as needed for itching., Disp: , Rfl: insulin lispro (HumaLOG U-100 Insulin) 100 unit/mL injection, USE UP TO 70 UNITS A DAY PER INSULIN PUMP DX:E11.9, Disp: 60 mL, Rfl: 3 insulin syringe-needle U-100 1/2 [...] in the morning., Disp: , Rfl: STRENSIQ 18 mg/0.45 mL solution, Inject 2 mg/kg three times per week as directed. Rotate sites. 208.72, Disp: 12 mL, Rfl: 10 STRENSIQ 80 mg/0.8 mL solution, Inject 2 mg/kg three times per week as directed. Rotate sites. 1855.28, Disp: 24 mL, Rfl: 10 SYMBICORT 160-4.5 mcg/actuation inhaler, Inhale 2 puffs in the morning and 2 puffs before bedtime., Disp: 10.2 g, Rfl: 11 losartan (COZAAR) 25 mg tablet, Take 1 tablet (25 mg total) by mouth in the morning., Disp: 30 tablet, Rfl: 11 Allergies, social history and family history were reviewed and updated in this chart. REVIEW OF SYSTEMS: 10-point ROS is negative, unless otherwise documented in HPI. PHYSICAL EXAM: Wt Readings from Last 3 Encounters: 02/18/24 84.7 kg (186 lb 12.8 oz) 01/12/24 88.5 kg (195 lb) 11/30/23 85.9 kg (189 lb 4.8 oz) Body mass index is 31.09 kg/m . Vitals: 02/18/24 1454 BP: 135/90 Pulse: 86 Weight: 84.7 kg (186 lb 12.8 oz) Physical Exam Vitals reviewed. Constitutional: General: She is not in acute distress. Appearance: Normal appearance. She is not ill-appearing. HENT: Head: Normocephalic. Eyes: Conjunctiva/sclera: Conjunctivae normal. Neck: Vascular: No carotid bruit or JVD. Trachea: Trachea and phonation normal. Cardiovascular: Rate and Rhythm: Normal rate and regular rhythm. Pulses: Dorsalis pedis pulses are 1+ on the right side and 1+ on the left side. Posterior tibial pulses are 1+ on the right side and 1+ on the left side. Pulmonary: Effort: Pulmonary effort is normal. Breath sounds: Normal breath sounds. No wheezing, rhonchi or rales. Abdominal: General: Bowel sounds are normal. There is no distension. Palpations: Abdomen is soft. Tenderness: There is no abdominal tenderness. Musculoskeletal: General: No swelling. Right lower leg: No edema. Left lower leg: No edema. Right foot: No deformity or Charcot foot. Left foot: No deformity or Charcot foot. Feet: Right foot: Protective Sensation: 2 sites tested. 2 sites sensed. Skin integrity: No ulcer. Toenail Condition: Right toenails are normal. Left foot: Protective Sensation: 2 sites tested. 2 sites sensed. Skin integrity: No ulcer. Toenail Condition: Left toenails are normal. Skin: General: Skin is warm and dry. Capillary Refill: Capillary refill takes less than 2 seconds. Neurological: General: No focal deficit present. Mental Status: She is alert and oriented to person, place, and time. Gait: Gait is intact. Psychiatric: Attention and Perception: Attention and perception normal. Mood and Affect: Affect normal. Speech: Speech normal. Behavior: Behavior is cooperative. Cognition and Memory: Memory normal. Lab Results Component Value Date ALKPHOS 41 10/19/2023 ALKPHOS 41 12/26/2022 ALKPHOS 46 07/14/2022 ALKPHOS 42 05/08/2022 ALKPHOS 50 08/29/2021 ALKPHOS 54 08/05/2021 ALKPHOS 25 (L) 09/30/2020 ALKPHOS 30 (L) 08/18/2020 ALKPHOS 33 (L) 05/20/2020 ALKPHOS 46 01/02/2019 CBC: Lab Results Component Value Date WBC 7.3 12/19/2023 RBCCOUNT 4.62 12/19/2023 HGB 13.7 12/19/2023 HCT 39.5 12/19/2023 MCV 86 12/19/2023 MCH 29.7 12/19/2023 MCHC 34.7 12/19/2023 RDW 12.1 12/19/2023 PLT 306 12/19/2023 MPV 8.0 12/19/2023 CMP: Lab Results Component Value Date SODIUM 138 10/19/2023 K 3.7 10/19/2023 CL 103 10/19/2023 CO2 25 10/19/2023 ANIONGAP 10 10/19/2023 BUN 11 10/19/2023 CREATININE 0.79 10/19/2023 GLU 373 (H) 01/12/2024 CALCIUM 9.1 10/19/2023 TOTALPROTEI 6.8 10/19/2023 ALBUMIN 4.2 10/19/2023 ALKPHOS 41 10/19/2023 AST 15 10/19/2023 ALT 18 10/19/2023 GFR >60 08/29/2021 GFR >60 08/29/2021 LIPID: Lab Results Component Value Date Cholesterol 224 (H) 10/19/2023 Cholesterol:HDL Ratio 5.1 (H) 10/19/2023 HDL Cholesterol 44 10/19/2023 Triglycerides 241 (H) 10/19/2023 LDL (calc) 132 (H) 10/19/2023 Urine Microalbumin: Lab Results Component Value Date MICROALBUR 0.9 10/19/2023 URINECREAT 183.24 10/19/2023 ALBCREATRA 4.9 10/19/2023 TSH/T4: Lab Results Component Value Date TSH 0.81 01/02/2024 TSH 1.08 12/19/2023 T4 1.07 01/02/2024 T4 1.14 12/19/2023 1. Type 2 diabetes mellitus with hyperglycemia, with long-term current use of insulin ([facility] [place]) - POCT Hemoglobin A1c 2. 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 Hypophosphatasia 4. Benign hypertension - losartan (COZAAR) 25 mg tablet; Take 1 tablet (25 mg total) by mouth in the morning. Dispense: 30 tablet; Refill: 11 5. H/O tubal ligation Change CR 1/8 all times Change BR 0.8 Strensiq is helping pt Improving energy Needs to take it consistently sensor download reviewed and interpreted on file in media. PPG and FBG are high Change settings as above A1c elevation is associated with significant risk [...] urine Microalbumin to cr ratio are advised. Daily examination of the feet for signs of injury and inspection of the shoes for foreign body or shoe deformity that could lead to foot injury. This note was created with the assistance of a speech-recognition program. Although the intention is to generate a document that actually reflects the content of the visit, no guarantees can be provided that every mistake has been identified and corrected by editing. Patient was encouraged to review the note and send a message in case there are any corrections/updates that need to be done to the note. Return to clinic: 1-2 months with drawer upfitter 3-4 months with me Renetta Cabrera MD, MPH, [facility] [address] [address] Dept: [phone] FAX: [phone] documented in this encounter [facility] 01-31-2024 Note Aida Dunn is a ple asant 33 year old female previously evaluated for orthostatic intolerance (OI) consistent with postural orthostatic tachycardia syndrome (POTS), due to an autonomic diabetic neuropathy at our [facility] in the [facility] at the [facility]. Hx IST and HTN. Chief Complaint: She had a bee sting. Hives, trouble breathing. Went to ED. Given epi pen, benadryl, steroids. Had to go back to ED because of high blood sugar. Standing is causing near syncope since the episode. No syncope. Near syncope. Several times a day. Sits and OK. Review of Systems Constitutional: Negative for malaise/fatigue. Cardiovascular: Positive for near-syncope. Negative for chest pain, dyspnea on exertion and syncope. Neurological: Positive for dizziness and light-headedness. Negative [...] and oriented to person, place and time. Today she is noted to have OH. 150/79 mmhg to 132/80mmhg. 18 mmhg point drop Assessment/Plan The primary encounter diagnosis was Postural orthostatic tachycardia syndrome (POTS). Diagnoses of Inappropriate sinus tachycardia (CMS/HCC), Essential hypertension, and Diabetic autonomic neuropathy associated with type 2 diabetes mellitus (CMS/HCC) were also pertinent to this visit. POTS. Stable. Chronic. No heart palpitations on the labetalol. IST / Stable. HTN. Chronic. Stable. Home readings reported normal. DM neuropathy. Chronic. Not stable. OH today. Near syncope episodes improving slowly. We decided to monitor symptoms for now, improving. Take labetalol three times daily. Fabiola Falcon APRN PhD [facility] Nurse Practitioner Division of Cardiovascular Medicine [facility]. [facility] 01-23-2024 History of Present illness Narrative Associated Problem(s): Type 2 diabetes mellitus with hyperglycemia, with long-term current use of insulin (CMS/HCC) BS stable and follow with endocrinology. Associated Problem(s): Postural orthostatic tachycardia syndrome (POTS) Symptoms worse and increase fluids. Follow with cardiology. If symptoms persist may need to add midodrine. Associated Problem(s): GERD without esophagitis Worsening symptoms and add pepcid. Associated Problem(s): Allergic reaction to bee sting Recent reaction but resolved. Carry epipen. Images from the original note were not included. Subjective Patient ID: Aida Dunn is a 33 y.o. female who presents for Follow-up ([facility] f/u) and Sinus Problem. ER follow up from allergic reaction to bee sting. Patient stung in back and developed rash and hives. Developed throat swelling and SOB. To ER and given epi and steroids. Given benadryl and pepcid and sent home. BS elevated at home and returned to ER. Advised to dose insulin pump. Since home improved. BS back down to 170-180. Rash resolved and has epipen. C/o increased POTS symptoms since ER. Very lightheaded when up and moving. Often feels like will pass out. No palpitations or heart racing but on labetalol. Contacted cardiology but not seen for months. C/o worsening GERD. Frequent epigastric pain and burning and waking up with symptoms. On omeprazole but not helping. Review of Systems Respiratory: Negative for cough, shortness of breath and wheezing. Cardiovascular: Negative for chest pain and palpitations. Gastrointestinal: Negative for abdominal pain, diarrhea, nausea and vomiting. Genitourinary: Negative for dysuria. Objective Physical Exam Constitutional: General: She is not in acute distress. Appearance: Normal appearance. HENT: Head: Normocephalic. Right Ear: Tympanic membrane normal. Left Ear: Tympanic membrane normal. Eyes: Extraocular Movements: Extraocular movements intact. Pupils: Pupils are equal, round, and reactive to light. Cardiovascular: Rate and Rhythm: Normal rate and regular rhythm. Heart sounds: No murmur heard. No friction rub. No gallop. Pulmonary: Effort: Pulmonary effort is normal. Breath sounds: Normal breath sounds. No wheezing, rhonchi or rales. Abdominal: General: Bowel sounds are normal. There is no distension. Palpations: Abdomen is soft. Tenderness: There is no abdominal tenderness. There is no guarding or rebound. Musculoskeletal: Cervical back: Neck supple. Right lower leg: No edema. Left lower leg: No edema. Neurological: Mental Status: She is alert. Assessment/Plan Problem List Items Addressed This Visit Type 2 diabetes mellitus with hyperglycemia, with long-term current use of insulin ([facility]) BS stable and follow with endocrinology. Postural orthostatic tachycardia syndrome (POTS) Symptoms worse and increase fluids. Follow with cardiology. If symptoms persist may need to add midodrine. GERD without esophagitis Worsening symptoms and add pepcid. Relevant Medications famotidine (Pepcid) 40 MG tablet Allergic reaction to bee sting - Primary Recent reaction but resolved. Carry epipen. documented in this encounter [facility] 01-11-2024 Miscellaneous Notes Patient left message asking for refill on Albuterol solution. Patient last seen on 11/30/23. Refill sent. documented in this encounter [facility] 01-11-2024 Telephone encounter Note Patient left message asking for refill on Albuterol solution. Patient last seen on 11/30/23. Refill sent. [facility] 01-08-2024 Telephone encounter Note ANTHEM 20% CO PAY WITH UNLIMITED VISITS DEDUCTIBLE DOES NOT APPLY OUT OF POCKET IS 8850 AND 990.83 IS MET MEDICAID COVERS AT 100% WITH UNLIMITED VISITS scheduled [facility] 01-08-2024 Miscellaneous Notes ANTHEM 20% CO PAY WITH UNLIMITED VISITS DEDUCTIBLE DOES NOT APPLY OUT OF POCKET IS 8850 AND 990.83 IS MET MEDICAID COVERS AT 100% WITH UNLIMITED VISITS scheduled documented in this encounter [facility] 01-02-2024 History of Present illness Narrative Associated Problem(s): Type 2 diabetes mellitus with polyneuropathy ([facility]) Increased symptoms and start cymbalta. Associated Problem(s): Type 2 diabetes mellitus with hyperglycemia, with long-term current use of insulin ([facility]) BS elevated and follow with endocrinology. Associated Problem(s): ISAAC (generalized anxiety disorder) ([facility]) Symptoms worse and start cymbalta. Warned will take 2-3 weeks to notice improvement in mood. Refer for counseling. Associated Problem(s): Chronic rhinosinusitis Worsening symptoms and ENT retired. Refer to new ENT. Continue flonase daily. Images from the original note were not included. Subjective Patient ID: Aida Dunn is a 33 y.o. female who presents for Follow-up (Anxiety/). C/o worsening anxiety over past few weeks. In counseling in past and counselor left. Severe symptoms over past few weeks. Anxiety stable. Not as stressed out or overwhelmed. Not as nervous or worry as much. Not as ortega or irritable. Denies depression and not down or sad. In past did well with cymbalta and wellbutrin. C/o worsening sinus problems. Nose plugged and not able to breath through nose. Increased congestion and postnasal drip. Taking flonase daily but not helping. Prior sinus surgery and worried needs another procedure. Prior ENT has retired. C/o worsening nerve pain. Increased numbness and pain in hands and feet. States cymbalta helped that in past. BS elevated since increased stress and started stress eating. Review of Systems Respiratory: Negative for cough, shortness of breath and wheezing. Cardiovascular: Negative for chest pain and palpitations. Gastrointestinal: Negative for abdominal pain, diarrhea, nausea and vomiting. Genitourinary: Negative for dysuria. Objective Physical Exam Constitutional: General: She is not in acute distress. Appearance: Normal appearance. HENT: Head: Normocephalic. Right Ear: Tympanic membrane normal. Left Ear: Tympanic membrane normal. Eyes: Extraocular Movements: Extraocular movements intact. Pupils: Pupils are equal, round, and reactive to light. Cardiovascular: Rate and Rhythm: Normal rate and regular rhythm. Heart sounds: No murmur heard. No friction rub. No gallop. Pulmonary: Effort: Pulmonary effort is normal. Breath sounds: Normal breath sounds. No wheezing, rhonchi or rales. Abdominal: General: Bowel sounds are normal. There is no distension. Palpations: Abdomen is soft. Tenderness: There is no abdominal tenderness. There is no guarding or rebound. Musculoskeletal: Cervical back: Neck supple. Right lower leg: No edema. Left lower leg: No edema. Neurological: Mental Status: She is alert. Assessment/Plan Problem List Items Addressed This Visit ISAAC (generalized anxiety disorder) (CMS/HCC) - Primary Symptoms worse and start cymbalta. Warned will take 2-3 weeks to notice improvement in mood. Refer for counseling. Relevant Medications DULoxetine (Cymbalta) [address] capsule Other Relevant Orders Ambulatory referral to Psychology Type 2 diabetes mellitus with hyperglycemia, with long-term current use of insulin (CMS/HCC) BS elevated and follow with endocrinology. Type 2 diabetes mellitus with polyneuropathy (CMS/HCC) Increased symptoms and start cymbalta. Chronic rhinosinusitis Worsening symptoms and ENT retired. Refer to new ENT. Continue flonase daily. Relevant Orders Ambulatory referral to ENT documented in this encounter [facility] 01-01-2024 History of Present illness Narrative Reason for Appointment: Patient ID: Aida Dunn is a 33 y.o. female who presents for Well Women Visit Patient presents today for Annual Exam. MEDICATIONS Current Outpatient Medications Medication Instructions cetirizine (ZYRTEC ALLERGY) 10 mg, Oral, Daily Continuous Blood Gluc Sensor (Dexcom G6 Sensor) misc USE DIRECTED CHANGE SENSOR EVERY 10 DAYS Continuous Blood Gluc Transmit (Dexcom G6 transmitter) misc CHANGE EVERY 3 MONTHS DIRECTED cyproheptadine (PERIACTIN) 2 mg, Oral, Nightly fluticasone (Flonase) 50 MCG/ACT nasal spray SPRAY 2 SPRAYS INTO EACH NOSTRIL IN THE MORNING insulin lispro (HumaLOG KWIKPEN) 100 UNIT/ML injection Subcutaneous, 3 times daily with meals labetalol (NORMODYNE) 100 mg, Oral, 3 times daily lactulose (Chronulac) 10 GM/15ML solution TAKE 30 ML BY MOUTH TWICE DAILY NEEDED levothyroxine (Synthroid, Levoxyl) 25 MCG tablet 1 tablet, Oral, Daily before breakfast meclizine (ANTIVERT) 25 mg, Oral, 4 times daily PRN omeprazole (PRILOSEC) 40 mg, Oral, Daily before breakfast polyethylene glycol (PEG) 3350 (GLYCOLAX) 17 g, Oral, Daily Strensiq 18 MG/0.45ML solution injection triamcinolone (Kenalog) 0.5 % cream Topical, 3 times daily ALLERGIES Allergies Allergen Reactions Hydrocortisone Unknown steroid cream she placed in ear, caused entire face to swell, doesn't know name of cream Other reaction(s): Other: See Comments Other reaction(s): Other: See Comments steroid cream she placed in ear, caused entire face to swell, doesn't know name of cream steroid cream she placed in ear, caused entire face to swell, doesn't know name of cream Other reaction(s): Other: See Comments steroid cream she placed in ear, caused entire face to swell, doesn't know name of cream Ciprofloxacin Diarrhea and Unknown dizzy, loss of equilibrium Other reaction(s): Other: See Comments Other reaction(s): Other: See Comments dizzy, loss of equilibrium dizzy, loss of equilibrium Other reaction(s): Other: See Comments dizzy, loss of equilibrium Cephalexin Liraglutide Nausea Only Metformin Diarrhea Nitrofurantoin Other Unknown Latex Rash PROBLEMS Active Ambulatory Problems Diagnosis Date Noted Abnormal involuntary movement 01/26/2014 Absence of bladder continence 01/04/2023 Acquired hypothyroidism ([facility]) 04/26/2022 Hypothyroidism affecting ([facility]) 11/22/2016 ISAAC (generalized anxiety disorder) ([facility]) 01/04/2023 Asthma during ([facility]) 10/04/2020 Asthma ([facility]) 05/16/2016 Benign essential hypertension ([facility]) 08/28/2022 Bilateral tinnitus 03/07/2018 Carpal tunnel syndrome 01/04/2023 Carpal tunnel syndrome on both sides 01/18/2022 Chronic hypertension affecting 10/04/2020 Chronic migraine without aura, intractable, without status migrainosus ([facility]) 01/04/2023 Seasonal allergic rhinitis due to pollen 01/04/2023 Colitis 01/04/2023 Depressive disorder ([facility]) 01/04/2023 Type 2 diabetes mellitus with other specified complication ([facility]) 01/04/2023 Diabetes ([facility]) 01/04/2023 Type 1 diabetes mellitus ([facility]) 01/04/2023 Type 2 diabetes mellitus with hyperglycemia, with long-term current use of insulin ([facility]) 11/22/2016 Type 2 diabetes mellitus without complication ([facility]) 01/04/2023 Diabetic autonomic neuropathy ([facility]) 07/11/2017 Disorder of phosphorus metabolism ([facility]) 01/04/2023 Dizziness and giddiness 08/20/2013 Dyslipidemia ([facility]) 08/28/2022 Itching of ear 10/18/2022 Edema of lower extremity 01/04/2023 Gait disturbance 08/08/2022 Headache, variant migraine ([facility]) 01/04/2023 Migraine variant, intractable ([facility]) 08/08/2022 Hearing loss of right ear 03/07/2018 History of premature delivery, currently 10/04/2020 History of stillbirth in patient in third trimester, antepartum 10/04/2020 Hypertensive disorder ([facility]) 01/04/2023 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 (CMS/HCC) 08/28/2022 Impairment of balance 03/20/2012 Inappropriate sinus tachycardia ([facility]) 02/16/2020 Intracranial arachnoid cyst 06/13/2021 Intractable migraine with aura without status migrainosus ([facility]) 06/13/2021 Irritable bowel syndrome without diarrhea 01/04/2023 Migraine (CMS/HCC) 08/20/2013 Mixed hyperlipidemia (CMS/HCC) 01/04/2023 Moderate persistent asthma without complication (CMS/HCC) 01/04/2023 Myalgia 01/04/2023 Nasal congestion 03/07/2018 Nausea and vomiting 01/04/2023 Fibromyalgia syndrome 03/20/2012 Fibromyalgia 01/04/2023 Neck pain 01/18/2022 Neuralgia and neuritis, unspecified 01/04/2023 Non-toxic nodular goiter ([facility]) 01/04/2023 Nontoxic single thyroid nodule ([facility]) 01/04/2023 Obesity 08/20/2013 Obstructive sleep apnea 01/04/2023 Other cervical disc degeneration, unspecified cervical region 01/04/2023 Overweight (BMI 25.0-29.9) 05/16/2016 Palpitations 01/04/2023 Periodic limb movement 01/04/2023 Restless legs 06/12/2018 Polycystic ovaries 08/28/2022 Postural orthostatic tachycardia syndrome (POTS) 06/14/2022 Pre-existing type 2 diabetes mellitus during in third trimester 08/20/2020 Radiculopathy of cervical region 01/04/2023 Pain in right knee 01/04/2023 Second hand smoke exposure 01/04/2023 Somatoform pain disorder 01/04/2023 Tachycardia 08/20/2013 Tremor 01/04/2023 Persistent vertigo of central origin 02/20/2023 GERD without esophagitis 04/17/2023 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[facility]) 04/17/2023 Generalized abdominal pain 06/05/2023 Chronic idiopathic constipation 06/05/2023 Autism spectrum disorder ([facility]) 06/18/2023 Acute non-recurrent pansinusitis 09/10/2023 Resolved Ambulatory Problems Diagnosis Date Noted Allergic rhinitis 05/16/2016 Seasonal allergic rhinitis due to fungal spores 01/04/2023 Vertigo 03/07/2018 Ear pressure, right 10/31/2021 Open wound of hand except fingers 11/13/2013 Right leg pain 01/04/2023 Right lower quadrant abdominal pain 01/04/2023 Syncope 01/04/2023 Tachycardia, unspecified 01/04/2023 Wheezing 01/04/2023 Past Medical History: Diagnosis Date Anxiety Fatigue History of being hospitalized 01/2018 Hypertension (CMS/HCC) Hypothyroidism (CMS/HCC) IBS (irritable bowel syndrome) PCOS (polycystic ovarian syndrome) Sleep apnea HISTORY PAST MEDICAL HISTORY SOCIAL HISTORY Past Medical History: Diagnosis Date Anxiety Colitis Diabetes (CMS/HCC) Fatigue Fibromyalgia History of being hospitalized 01/2018 [place] - , delivery Hypertension (CMS/HCC) Hypothyroidism (CMS/HCC) IBS (irritable bowel syndrome) PCOS (polycystic ovarian syndrome) Sleep apnea Social History Tobacco Use Smoking status: Never Smokeless tobacco: Never Substance Use Topics Alcohol use: Never Comment: Caffeine: > 4 cups/day Drug use: Never FAMILY HISTORY Family History Problem Relation Name Age of Onset Hyperlipidemia Mother Depression Mother Arthritis Mother Diabetes Mother Hypertension Mother Breast cancer Mother Hypertension Father Hyperlipidemia Father Heart disease Father Diabetes Father Depression Father Arthritis Father Depression Sister Hypertension Brother Depression Brother Premature Daughter 27wks 6 days ALS Mother's Sister Stroke Maternal Grandmother Hypertension Maternal Grandmother Heart disease Maternal Grandmother Depression Maternal Grandmother Tuberculosis Maternal Grandmother Hypertension Maternal Grandfather Depression Maternal Grandfather Arthritis Paternal Grandmother Heart disease Paternal Grandmother Hypertension Paternal Grandmother Hyperlipidemia Paternal Grandmother Diabetes Paternal Grandmother Hypertension Paternal Grandfather SURGICAL HISTORY Past Surgical History: Procedure Laterality Date BLADDER SURGERY bladder extension SECTION, LOW TRANSVERSE 01/14/2018 CT ANGIOGRAM HEART CORONARY 09/30/2020 CT ANGIOGRAM TAVR 09/30/2020 CT ANGIOGRAM HEART CORONARY 02/21/2017 CT ANGIOGRAM TAVR 02/21/2017 SEPTOPLASTY TONSILLECTOMY TUBAL LIGATION Bilateral 02/24/2021 REVIEW OF SYSTEMS Review of Systems: Review of Systems Constitutional: Negative. HENT: Negative. Eyes: Negative. Respiratory: Negative. Cardiovascular: Negative. Gastrointestinal: Negative. Genitourinary: Negative. Musculoskeletal: Negative. Skin: Negative. Neurological: Negative. All other systems reviewed and are negative. Hematological: Negative. Endocrine: Negative. Allergic/Immunologic: Negative. OBJECTIVE Objective: Physical Exam Constitutional: Appearance: Normal appearance. She is well-developed. Genitourinary: Vulva normal. Breasts: Breasts are soft. Right: Normal. Left: Normal. Cardiovascular: Rate and Rhythm: Normal rate and regular rhythm. Pulmonary: Effort: Pulmonary effort is normal. Breath sounds: Normal breath sounds. Abdominal: General: Bowel sounds are normal. There is no distension. Palpations: Abdomen is soft. Tenderness: There is no abdominal tenderness. There is no guarding or rebound. Musculoskeletal: General: No swelling. Normal range of motion. Right lower leg: No edema. Left lower leg: No edema. Neurological: Mental Status: She is alert and oriented to person, place, and time. Skin: General: Skin is warm and dry. Psychiatric: Mood and Affect: Mood normal. Behavior: Behavior normal. Vitals and nursing note reviewed. Exam conducted with a back stayer present. Vitals: Estimated body mass index is 31.78 kg/m as calculated from the following: Height as of this encounter: 5' 5 . Weight as of this encounter: 191 lb. BP: 120/74 Patient's last menstrual period was 10/08/2023. ASSESSMENT & PLAN ICD-10-CM 1. Well woman exam with routine gynecological exam Z01.419 Pap Smear HPV DNA probe, amplified Annual Exam: Patient presents today for an annual exam. Patient states she is doing well and has complaints of breast tenderness, primrose oil at night vitamin e lotion in the morning. And new bra support. Pap was obtained without difficulty. Orders Placed This Encounter Procedures HPV DNA probe, amplified Follow Up: Patient is to return in one year for annual unless needed otherwise. Documented by Jacqui Duggan LPN on behalf of: Ankit Wilson DO documented in this encounter [facility] 12-12-2023 Miscellaneous Notes PAP repair/replace order and supplies order with supportive documentation faxed to [facility] documented in this encounter [facility] 12-12-2023 Telephone encounter Note PAP repair/replace order and supplies order with supportive documentation faxed to [facility] [employer] [facility] 11-30-2023 History of Present illness Narrative Chief Complaint: Aida Dunn is a 33 y.o. female present for follow up visit regarding Asthma and BUTCH HPI: Patient is accompanied by: Significant Other The patient reports that she has been doing ok in regards to her breathing. She continues to use Symbicort and Albuterol as needed. She continues to have some dyspnea with exertion of stairs. She denies any fever, chills, chest pain, shortness of breath, phlegm, cough or hemoptysis. Denies any ER visits or hospitalizations since she last visit in our office. Patient has a nebulizer that they are using and benefiting from. Last use : none in 6 months Supplemental O2 use: None Frequency of respiratory infections: None in 6 months Has tried following inhalers in past: Symbicort and Albuterol Last steroid use: none in 6 months Sleep Issues: The patient reports that she is adherent to her nocturnal ventilatory support for 6.5 hours a night 7 days per week In Jun, but has not been wearing since. She reports feeling as if her machine is not working appropriately and needs to have it fixed. She denies sleepiness while driving. Supplemental O2 use: none Current PAP interface: She uses a Full Face Mask. She does not use a chinstrap. She does not use the heated inline humidifier. Cleaning supplies with soap and water. EPWORTH SLEEPINESS SCALE Sitting and Reading: Slight Chance Watching TV: (!) Moderate Chance Sitting inactive in a public place (theater, meeting): Never As a passenger in a car for an hour without a break: Slight Chance Lying down in the afternoon to rest: Slight Chance Sitting and talking to someone: Slight Chance Sitting quietly after lunch (without alcohol): Slight Chance In a car, while stopped for a few minutes in traffic: Never Total: 7 OARRS REVIEWED: Reviewed: no PMH @ Past Medical History: Diagnosis Date Abdominal pain Abnormal involuntary movement Anxiety Asthma 05/16/2016 Autism Bacterial vaginosis Bladder incontinence Goode hump Carpal tunnel syndrome, bilateral Chronic hypertension affecting 01/15/2018 Colitis Constipation Depression Dizziness 03/07/2018 DM type 2 (diabetes mellitus, type 2) ([facility]) Dyslipidemia Edema, lower extremity Fatigue Fibromyalgia Gait disturbance Giddiness Kaleb's thyroiditis Hearing loss 03/07/2018 History of intrauterine History of delivery HPP (hereditary pyropoikilocytosis) ([facility] [place] ENDOCRINOLOGY IS TESTING TO CONFIRM DIAGNOSIS HPP (hereditary pyropoikilocytosis) ([facility] [place]) HTN (hypertension) Hyperlipidemia Hypophosphatasia Hypothyroid IBS (irritable bowel syndrome) IBS (irritable bowel syndrome) 11/22/2016 Inappropriate sinus node tachycardia ([facility]) Inappropriate sinus tachycardia ([facility] [place]) Intracranial arachnoid cyst Low back pain Meniere's [...] Tinnitus of both ears Toe deformity Vertigo PERTINENT HISTORY: Her pertinent medical history includes Past Medical History: Diagnosis Date Abdominal pain Abnormal involuntary movement Anxiety Asthma 05/16/2016 Autism Bacterial vaginosis Bladder incontinence Goode hump Carpal tunnel syndrome, bilateral Chronic hypertension affecting 01/15/2018 Colitis Constipation Depression Dizziness 03/07/2018 DM type 2 (diabetes mellitus, type 2) ([facility] Dyslipidemia Edema, lower extremity Fatigue Fibromyalgia Gait disturbance Giddiness Kaleb's thyroiditis Hearing loss 03/07/2018 History of intrauterine History of delivery HPP (hereditary pyropoikilocytosis) ([facility] [facility] ENDOCRINOLOGY IS TESTING TO CONFIRM DIAGNOSIS HPP (hereditary pyropoikilocytosis) ([facility] [place] [facility]) HTN (hypertension) Hyperlipidemia Hypophosphatasia Hypothyroid IBS (irritable bowel syndrome) IBS (irritable bowel syndrome) 11/22/2016 Inappropriate sinus node tachycardia ([facility]) Inappropriate sinus tachycardia ([facility]) Intracranial arachnoid cyst Low back pain Meniere's [...] Tinnitus of both ears Toe deformity Vertigo CURRENT MEDICATIONS: Reviewed with patient. Current Outpatient [...] 360 mL, Rfl: 11 blood sugar diagnostic (PrecogUCH VERIO TEST STRIPS) strip, USE DIRECTED TO TEST 1 TIME DAILY, Disp: 100 strip, Rfl: 3 cetirizine (ZyrTEC) 10 mg capsule, Take 1 capsule (10 mg total) by mouth daily., Disp: 30 capsule, Rfl: 11 [employer] G7 SENSOR device, Change every 10 days, Disp: 9 each, Rfl: 3 fluticasone propionate (FLONASE) 50 mcg/actuation nasal spray, Administer 1 spray into each nostril daily., Disp: 15.8 mL, Rfl: 11 hydrOXYzine (ATARAX) 25 mg tablet, Take 1 tablet (25 mg total) by mouth 3 (three) times a day as needed for itching., Disp: , Rfl: insulin lispro (HumaLOG U-100 Insulin) 100 unit/mL injection, USE UP TO 70 UNITS A DAY PER INSULIN PUMP DX:E11.9, Disp: 60 mL, Rfl: 3 insulin syringe-needle U-100 1/2 [...] in the morning., Disp: , Rfl: STRENSIQ 18 mg/0.45 mL solution, Inject 2 mg/kg three times per week as directed. Rotate sites. 208.72, Disp: 12 mL, Rfl: 10 STRENSIQ 80 mg/0.8 mL solution, Inject 2 mg/kg three times per week as directed. Rotate sites. 1855.28, Disp: 24 mL, Rfl: 10 SYMBICORT 160-4.5 mcg/actuation inhaler, Inhale 2 puffs in the morning and 2 puffs before bedtime., Disp: 10.2 g, Rfl: 11 Vitals: 11/30/23 1153 BP: 137/82 Pulse: 70 SpO2: 98% Weight: 85.9 kg (189 lb 4.8 oz) Height: 165.1 cm (5' 5 ) ALLERGIES Reviewed with patient. Hydrocortisone; Ciprofloxacin; Keflex [cephalexin]; Macrobid [nitrofurantoin monohyd/m-cryst]; Metformin; Neuromuscular blockers, steroidal; Victoza 2-ricki [liraglutide]; and Latex, natural rubber FAMILY HISTORY Family History Problem Relation Age [...] Social History Socioeconomic History Marital status: Single Tobacco Use Smoking status: Never Smokeless tobacco: Never Vaping Use Vaping status: Never Used Substance and Sexual Activity Alcohol use: No Alcohol/week: 0.0 standard drinks of alcohol Comment: rarely Drug use: No Sexual activity: Yes Partners: Male control/protection: None Social Determinants of Health Financial Resource Strain: Low Risk (04/10/2023) Received from [facility] Overall Financial Resource Strain (CARDIA) Difficulty of Paying Living Expenses: Not very hard Food Insecurity: No Food Insecurity (10/17/2023) Hunger Screening Food Insecurity - Worry: Never True Food Insecurity - Inability: Never True Transportation Needs: No Transportation Needs (04/10/2023) Received from [facility] PRAPARE - Transportation Lack of Transportation (Medical): No Lack of Transportation (Non-Medical): No Physical Activity: Insufficiently Active (04/10/2023) Received from [facility] Exercise Vital Sign Days of Exercise per Week: 1 day Minutes of Exercise per Session: 10 min Stress: Stress Concern Present (04/10/2023) Received from [facility] [place] [facility] [employer] [facility] - Occupational Stress Questionnaire Feeling of Stress : To some extent Social Connections: Socially Isolated (04/10/2023) Received from [facility] Social Connection and Isolation Panel [NHANES] Frequency of Communication with Friends and Family: Once a week Frequency of Social Gatherings with Friends and Family: Never Attends Gnosticist Services: Never Active Member of Clubs or Organizations: No Attends Club or Organization Meetings: Never Marital Status: Never Interpersonal Safety: Not At Risk (08/15/2023) [facility] Humiliation, Afraid, Rape, and Kick questionnaire Fear of Current or Ex-Partner: No Emotionally Abused: No Physically Abused: No Sexually Abused: No Housing Instability: Unknown (04/10/2023) [facility] Housing Stability Vital Sign Unable to Pay for Housing in the Last Year: No Unstable Housing in the Last Year: No TRAVEL HISTORY: Denies recent travel. ROS: Review of Systems Constitutional: Negative for chills, fatigue and fever. Respiratory: Negative for cough, shortness of breath and wheezing. Cardiovascular: Negative for chest pain/discomfort. All other systems are reviewed and are negative except as noted. PHYSICAL EXAM Vital signs BP 137/82 Pulse 70 Ht 165.1 cm (5' 5 ) Wt 85.9 kg (189 lb 4.8 oz) SpO2 98% BMI 31.50 kg/m Physical Exam Vitals and nursing note [...] RESULTS: Lab Results Component Value Date CO2 25 10/19/2023 Lab Results Component Value Date TSH 0.84 10/19/2023 T3, free 3.49 05/20/2020 IMAGING/PFT EDUCATION: No results found. X-ray abdomen complete decubitus erect Abdomen: HISTORY: Generalized abdominal pain. 3 views of the abdomen were obtained. Bowel gas pattern is nonspecific and nonobstructive. Is no free air. Colonic stool burden is moderate. No significant distention. IMPRESSION: Moderate colonic stool. Finalized by Edward العلي MD on 06/11/2023 1:15 PM DATA: Data card was not available for PAP usage data download. AutoPAP: 8-15 Titration: 07/2015 PS10/2014 w/ AHI of 13 DME: MELLY IMPRESSION August was seen today for asthma and sleep apnea. Diagnoses and all orders for this visit: BUTCH (obstructive sleep apnea) - check fix or replace if broken AUTO PAP: 8-15 Mild intermittent asthma without complication - SYMBICORT 160-4.5 mcg/actuation inhaler; Inhale 2 puffs in the morning and 2 puffs before bedtime. - Pulmonary function test Spirometry (Flow Volume Loop) w/ DLCO (diffusion study) Repeat testing with bronchodilator; Future - albuterol (PROVENTIL,VENTOLIN) nebulizer solution 2.5 mg - X-ray chest 2 views; Future BUTCH with adherence to nocturnal ventilatory support on a nightly basis. Obesity Body mass index is 31.5 kg/m . Asthma appears without current exacerbation Hypertension PLAN Discussed diagnosis, its evaluation, treatment and usual course. All questions answered. Educational material distributed. Orders Placed This Encounter Procedures check fix or replace if broken AUTO PAP: 8-15 Please link us to patient's machine if not completed already. Please give only [employer] machine if obtaining new machine. Scheduling Instructions: Length of Need: 12 months -Full Face Interface1/3mos -Full Face Cushion 1/mo -Nasal Cushion 2/mo, -Nasal Mask 1/3mos -Pillows 2/mo -Htd Tubing 1/3mos -Headgear 1/6mos -Chin Strap1/6mos -Non-Disposable Filter1/6mos -Disposable Filter2/mo -Water Chamber1/6mos -Std Tubing 1/3 mos -Add heat humidification with tubing Order Specific Question: Please specify Answer: check fix or replace if broken AUTO PAP: 8-15 Order Specific Question: The face to face evaluation was performed on Answer: 11/30/2023 X-ray chest 2 views Standing Status: Future Standing Expiration Date: 11/29/2024 Order Specific Question: Reason for Exam: Answer: airway obstr Order Specific Question: Release to patient via MyChart? Answer: Immediate [1] Pulmonary function test Spirometry (Flow Volume Loop) w/ DLCO (diffusion study) Repeat testing with bronchodilator Repeat testing with bronchodilator for FEV1/FVC is less than 70% or FEV1 is less than 80% Standing Status: Future Standing Expiration Date: 11/29/2024 Scheduling Instructions: SPIROMETRY W/DIFFUSION (DLCO) [91000] Order Specific Question: Specify test Answer: Spirometry (Flow Volume Loop) w/ DLCO (diffusion study) Repeat testing with bronchodilator Order Specific Question: Release to patient via MyChart? Answer: Immediate [1] Orders Placed or Reconciled This Encounter Medications SYMBICORT 160-4.5 mcg/actuation inhaler Sig: Inhale 2 puffs in the morning and 2 puffs before bedtime. Dispense: 10.2 g Refill: 11 Her machine should be checked fixed or replaced if broken PFT and CXR prior to next visit. Last in 02/2023 Continue Symbicort and PRN use of Albuterol Discussed and demonstrated inhalers in great detail. Patient verbalized understanding of proper use. Highly encouraged to rinse out mouth after use with steroid inhalers. Encouraged to use spacer with appropriate inhalers. Diet and exercise were discussed in detail. Any age appropriate or routine screening per PCP. Follow up in 6 Months time. If her condition should change prior to this she is encouraged to give our office a call. EDUCATION: Driving precautions were reviewed. I advised the patient not to drive if sleepy, and to pin puller if sleepiness occurs while driving. Above plan as discussed with the patient who acknowledged understanding and agreement. Health risks associated with untreated BUTCH were discussed (cardiopulmonary, cerebrovascular, and anesthesia/sedative-related). CC: MD Dena CATALAN [facility] Office: [phone] 3:55 PM on 12/09/2023 This note is dictated with the use of M*Modal.Please note that this dictation was completed with computer voice recognition software. Quite often unanticipated grammatical, syntax, homophones, and other interpretive errors are inadvertently transcribed by the computer software. Please disregard these errors. Please excuse any errors that have escaped final proofreading. JOURDAN Ramírez 12/09/23 1603 documented in this encounter [facility] 11-30-2023 Instructions JOURDAN Ramírez - 11/30/2023 11:45 AM EDT If you re looking for general health and wellness resources, please visit [email or web address] documented in this encounter [facility] 10-17-2023 History of Present illness Narrative REASON FOR VISIT: Aida Dunn returns today for follow-up of diabetes. DIABETES HISTORY: Type of Diabetes: Type 2 Diabetes Duration of Diabetes: since 2013 INTERVAL HISTORY: UDAY was in July with HgA1c of 6.7%. Today's is 7.2%. She would like to switch to the Dexcom G7. Has been better with the strensiq injections, but still not taking all of them. DIABETES COMPLICATIONS/SURVEILLANCE: Retinopathy: no Last eye exam: overdue Nephropathy: no Peripheral neuropathy: no Autonomic neuropathy: no Macrovascular disease: CAD: no PVD: no Stroke: no Hypertension: yes Dyslipidemia: no GLUCOSE CONTROL: Diabetes medications: Insulin pump Type: Tandem Tslim with Control IQ staying in sleep mode Insulin pump settings can be found in the media portion of this chart. Insulin pump settings reviewed with patient. Blood glucose summary: Patient is checking glucose frequently per continuous glucose sensor Using Dexcom sensor routinely, but has been without a sensor for a week. Blood sugars prior to this were running in the 150-200s. She feels shaky anytime her blood sugars start to drop and so she eats and then blood sugars rise again. Past Medical History: Diagnosis Date Abdominal pain Abnormal involuntary movement Anxiety Asthma 05/16/2016 Autism Bacterial vaginosis Bladder incontinence Goode hump Carpal tunnel syndrome, bilateral Chronic hypertension affecting 01/15/2018 Colitis Constipation Depression Dizziness 03/07/2018 DM type 2 (diabetes mellitus, type 2) ([facility] [place]) Dyslipidemia Edema, lower extremity Fatigue Fibromyalgia Gait disturbance Giddiness Kaleb's thyroiditis Hearing loss 03/07/2018 History of intrauterine History of delivery HPP (hereditary pyropoikilocytosis) ([facility] [place] ENDOCRINOLOGY IS TESTING TO CONFIRM DIAGNOSIS HPP (hereditary pyropoikilocytosis) ([facility] [place]) HTN (hypertension) Hyperlipidemia Hypophosphatasia Hypothyroid IBS (irritable bowel syndrome) IBS (irritable bowel syndrome) 11/22/2016 Inappropriate sinus node tachycardia ([facility]) Inappropriate sinus tachycardia ([facility] [place] [facility]) Intracranial arachnoid cyst Low back pain Meniere's [...] 01/14/2018 Performed by Torsten Talley MD at [facility] OR COLONOSCOPY 2014 normal COLONOSCOPY N/A 03/04/2020 Performed by Salvatore Connors DO at [facility] EGD N/A 03/04/2020 Performed by Salvatore Connors DO at [facility] LAPAROSCOPY 08/2016 scar tissue removal from appendix NASAL SEPTUM SURGERY 2007 TONSILLECTOMY Current Outpatient Medications: albuterol (PROVENTIL HFA;VENTOLIN [...] of breath., Disp: 360 mL, Rfl: 11 cetirizine (ZyrTEC) 10 mg capsule, Take 1 [...] needed for itching., Disp: , Rfl: insulin syringe-needle U-100 1/2 mL 31 gauge [...] vomiting., Disp: 20 tablet, Rfl: 0 ONETOUCH VERIO METER misc, New meter, Disp: [...] as needed.), Disp: 10.2 g, Rfl: 11 blood sugar diagnostic (PixelEXX SystemsTOUCH VERIO TEST STRIPS) strip, USE DIRECTED TO TEST 1 TIME DAILY, Disp: 100 strip, Rfl: 3 DEXCOM G7 SENSOR device, Change every 10 days, Disp: 9 each, Rfl: 3 insulin lispro (HumaLOG U-100 Insulin) 100 unit/mL injection, USE UP TO 70 UNITS A DAY PER INSULIN PUMP DX:E11.9, Disp: 60 mL, Rfl: 3 ONETOUCH DELICA PLUS LANCET 33 gauge misc, Checking daily, Disp: 100 each, Rfl: 3 Allergies, social history and family history were reviewed and updated in this chart. REVIEW OF SYSTEMS: 10-point ROS is negative, unless otherwise documented in HPI. PHYSICAL EXAM: Wt Readings from Last 3 Encounters: 10/17/23 84.9 kg (187 lb 3.2 oz) 07/17/23 84.8 kg (187 lb) 07/11/23 85.3 kg (188 lb) Body mass index is 31.15 kg/m . Vitals: 10/17/23 1315 BP: (!) 152/98 Pulse: 74 Weight: 84.9 kg (187 lb 3.2 oz) Physical Exam Vitals reviewed. Constitutional: General: She is not in acute distress. Appearance: Normal appearance. She is not ill-appearing. HENT: Head: Normocephalic. Eyes: Conjunctiva/sclera: Conjunctivae normal. Neck: Vascular: No carotid bruit or JVD. Trachea: Trachea and phonation normal. Cardiovascular: Rate and Rhythm: Normal rate and regular rhythm. Pulses: Dorsalis pedis pulses are 1+ on the right side and 1+ on the left side. Posterior tibial pulses are 1+ on the right side and 1+ on the left side. Pulmonary: Effort: Pulmonary effort is normal. Breath sounds: Normal breath sounds. No wheezing, rhonchi or rales. Abdominal: General: Bowel sounds are normal. There is no distension. Palpations: Abdomen is soft. Tenderness: There is no abdominal tenderness. Musculoskeletal: General: No swelling. Right lower leg: No edema. Left lower leg: No edema. Right foot: No deformity or Charcot foot. Left foot: No deformity or Charcot foot. Feet: Right foot: Protective Sensation: 2 sites tested. 2 sites sensed. Skin integrity: No ulcer. Toenail Condition: Right toenails are normal. Left foot: Protective Sensation: 2 sites tested. 2 sites sensed. Skin integrity: No ulcer. Toenail Condition: Left toenails are normal. Skin: General: Skin is warm and dry. Capillary Refill: Capillary refill takes less than 2 seconds. Neurological: General: No focal deficit present. Mental Status: She is alert and oriented to person, place, and time. Gait: Gait is intact. Psychiatric: Attention and Perception: Attention and perception normal. Mood and Affect: Affect normal. Speech: Speech normal. Behavior: Behavior is cooperative. Cognition and Memory: Memory normal. CBC: Lab Results Component Value Date WBC 9.7 06/11/2023 RBCCOUNT 4.86 06/11/2023 HGB 14.0 06/11/2023 HCT 40.7 06/11/2023 MCV 84 06/11/2023 MCH 28.8 06/11/2023 MCHC 34.4 06/11/2023 RDW 12.6 06/11/2023 PLT 330 06/11/2023 MPV 8.0 06/11/2023 CMP: Lab Results Component Value Date SODIUM 137 06/11/2023 K 4.4 06/11/2023 CL 104 06/11/2023 CO2 27 06/11/2023 ANIONGAP 6 06/11/2023 BUN 10 06/11/2023 CREATININE 0.83 06/11/2023 GLU 197 (A) 10/17/2023 CALCIUM 9.2 06/11/2023 TOTALPROTEI 7.0 06/11/2023 ALBUMIN 4.1 06/11/2023 ALKPHOS 41 12/26/2022 AST 25 06/11/2023 ALT 16 06/11/2023 GFR >60 08/29/2021 GFR >60 08/29/2021 LIPID: Lab Results Component Value Date Cholesterol 211 (H) 12/26/2022 Cholesterol:HDL Ratio 4.7 12/26/2022 HDL Cholesterol 45 12/26/2022 Triglycerides 193 (H) 12/26/2022 LDL (calc) 127 12/26/2022 Urine Microalbumin: Lab Results Component Value Date MICROALBUR <0.7 12/26/2022 URINECREAT 93.32 12/26/2022 ALBCREATRA NOT CALCULATED 12/26/2022 TSH/T4: Lab Results Component Value Date TSH 0.60 12/26/2022 TSH 0.75 05/08/2022 T4 1.06 05/08/2022 T4 0.96 08/05/2021 ASSESSMENT: Aida Dunn has controlled Type 2 Diabetes without complications 1. Type 2 diabetes mellitus with hyperglycemia, with long-term current use of insulin ([facility]) - POCT Glucose Fingerstick - POCT Hemoglobin A1c - blood sugar diagnostic (ONETOUCH VERIO TEST STRIPS) strip; USE DIRECTED TO TEST 1 TIME DAILY Dispense: 100 strip; Refill: 3 - insulin lispro (HumaLOG U-100 Insulin) 100 unit/mL injection; USE UP TO 70 UNITS A DAY PER INSULIN PUMP DX:E11.9 Dispense: 60 mL; Refill: 3 - ONETOUCH DELICA PLUS LANCET 33 gauge misc; Checking daily Dispense: 100 each; Refill: 3 - DEXWonderflow G7 SENSOR device; Change every 10 days Dispense: 9 each; Refill: 3 - Comprehensive metabolic panel; Future - Microalbumin - Albumin: Creatinine Urine Ratio; Future - Lipid profile; Future - CBC auto differential; Future NO changes today. I am going to switch her to the Dexcom G7 sensor. We discussed various options to try for shakiness outside of a true low blood sugar. Try a protein snack and let blood sugars come down to normal. 2. 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 A1c elevation is associated with significant risk [...] urine Microalbumin to cr ratio are advised. Daily examination of the feet for signs of injury and inspection of the shoes for foreign body or shoe deformity that could lead to foot injury. Return to clinic: 4 months JOURDAN Marie 10/17/23 1346 documented in this encounter [facility] 08-15-2023 Note Aida Dunn is a ple asant 33 year old female type I diabetic and young mother of two children previously evaluated for orthostatic intolerance (OI) consistent with postural orthostatic tachycardia syndrome (POTS),at our [facility] in the [facility] at the [facility]. Chief Complaint: Random palpitations. Stands and feels [...] medication and causing BS dysregulation. Speak to senior financial. RTC yearly. Fabiola Falcon APRN PhD [facility] Nurse Practitioner Division of Cardiovascular Medicine [facility]. [facility] 07-17-2023 Miscellaneous Notes ----- Message from Renetta Cabrera MD sent at 07/17/2023 9:55 AM EST ----- Refills for pump supplies and G6 sensors/ transmitter Spoke with patient. She uses [employer]. I faxed her chart note. documented in this encounter [facility] 07-17-2023 Telephone encounter Note ----- Message from Renetta Cabrera MD sent at 07/17/2023 9:55 AM EST ----- [facility] pump supplies [facility]6 [facility]17-2023 Telephone encounter Note Spoke with patient. She uses [employer]. [facility] note. [facility] History of Present illness Narrative Images [...] <0.7 12/26/2022 Lab Results Component Value Date YUNVTPN7Y 6.7 07/17/2023 [id number] 6.5 12/25/2022 [id number] 7.0 08/25/2022 GLU 172 (H) 06/11/2023 GLU [...] Asthma 05/16/2016 Autism Bacterial vaginosis Bladder incontinence Goode hump Carpal tunnel syndrome, bilateral Chronic hypertension affecting 01/15/2018 Colitis Constipation Depression Dizziness 03/07/2018 DM type 2 (diabetes mellitus, type 2) ([facility]) Dyslipidemia Edema, lower extremity Fatigue Fibromyalgia Gait disturbance Giddiness Kaleb's thyroiditis Hearing loss 03/07/2018 History of intrauterine History of delivery HPP (hereditary pyropoikilocytosis) ([facility] ENDOCRINOLOGY IS TESTING TO CONFIRM DIAGNOSIS HPP (hereditary pyropoikilocytosis) ([facility] [place]) HTN (hypertension) Hyperlipidemia [...] 01/14/2018 Performed by Torsten Talley MD at [facility] OR COLONOSCOPY 2014 normal COLONOSCOPY N/A 03/04/2020 Performed by Salvatore Connors DO at [facility] EGD N/A 03/04/2020 Performed by Salvatore Connors DO at [facility] LAPAROSCOPY 08/2016 scar tissue removal from appendix NASAL SEPTUM SURGERY 2007 TONSILLECTOMY Current Outpatient Medications: albuterol (PROVENTIL HFA;VENTOLIN [...] strip, Rfl: 3 blood-glucose meter,continuous (DEXCOM G6 [employer]ATE FIN[employer]CIAL ANALYST) [facility], Use as direct to monitor sensor glucose., [...] configured with any valid records. ASSESSMENT: Aida Dunn has uncontrolledType 2 Diabetes with complications of improving and hyperglycemia 1. Type 2 diabetes mellitus with hyperglycemia, with long-term current use of insulin ([facility] [facility]) - POCT Hemoglobin A1c 2. At risk [...] <0.7 12/26/2022 Lab Results Component Value Date YPKCIXF7H 6.7 07/17/2023 GRMYIYU5K 6.5 12/25/2022 [id number] 7.0 08/25/2022 GLU 172 (H) 06/11/2023 GLU [...] modification advised. Multiple chronic conditions as listed [id number] diagnosis, management and prognosis. Answered patient's questions to satisfaction. This note was created with the assistance of a speech-recognition program. Although the intention is to generate a document that actually reflects the content of the visit, no guarantees can be provided that every mistake has been identified and corrected by editing. . Return to clinic: 3 month Renetta Cabrera MD, MPH, [facility] [address] [address] Dept: [phone] FAX: [phone] documented in this encounter [facility] 07-17-2023 Instructions Renetta Cabrera MD - 07/17/2023 9:15 AM EST Mild persistent hyperglycemia noted. Increase all basal rates by 0.1. documented in this encounter [facility] 07-11-2023 History of Present illness Narrative [facility] [address] [place] [address] Patient: Aida Dunn Sex: female : 1990 [...] Asthma 05/16/2016 Autism Bacterial vaginosis Bladder incontinence Goode hump Carpal tunnel syndrome, bilateral Chronic hypertension affecting 01/15/2018 Colitis Constipation Depression Dizziness 03/07/2018 DM type 2 (diabetes mellitus, type 2) ([facility] Dyslipidemia Edema, lower extremity Fatigue Fibromyalgia Gait disturbance Giddiness Kaleb's thyroiditis Hearing loss 03/07/2018 History of intrauterine History of delivery HPP (hereditary pyropoikilocytosis) ([facility] ENDOCRINOLOGY IS TESTING TO CONFIRM DIAGNOSIS HPP (hereditary pyropoikilocytosis) ([facility]) HTN (hypertension) Hyperlipidemia [...] 01/14/2018 Performed by Torsten Talley MD at [facility] OR COLONOSCOPY 2014 normal COLONOSCOPY N/A 03/04/2020 Performed by Salvatore Connors DO at [facility] EGD N/A 03/04/2020 Performed by Salvatore Connors DO at [facility] LAPAROSCOPY 08/2016 scar tissue removal from appendix [...] PA-C by Vaishnavi Shea CNA. Provider Statement: AMANDA Horowitz PA-C, personally performed the services described in the documentation, as scribed by Vaishnavi Shea CNA in my presence, and it is both accurate and complete. Vaishnavi Shea CNA 07/11/23 1413 Amanda Simpson PA-C 07/11/23 1426 documented in this encounter [facility] 07-03-2023 Miscellaneous Notes Images from the original note were not included. Patient called and left voicemail on [place] nurse line at [facility]. Patient called in regards to her PAP supplies, patient stated that her DME, [facility], does not have orders for her PAP supplies. Noc Technician reached back out to Maria Antonia Stephens with [facility] to see what the hold up was for this patient. Maria Antonia zamora [facility] responded back stating that they had received our office's order in May, but since the patient has Medicare [facility] was unable to use the order with all of the items listed. Maria Antonia Stephens checked with their supply department and they said that they sent a new prescription through [facility] on 06/27. Noc Technician signed order in [employer]. documented in this encounter [facility] 07-03-2023 Telephone encounter Note Images from the original note were not included. Patient called and left voicemail on [place] nurse line at [facility]. Patient called in regards to her PAP supplies, patient stated that her DME, [facility], does not have orders for her PAP supplies. Noc Technician reached back out to Maria Antonia Stephens with [facility] to see what the hold up was for this patient. Maria Antonia zamora [facility] responded back stating that they had received our office's order in May, but since the patient has Medicare [facility] was unable to use the order with all of the items listed. Maria Antonia Stephens checked with their supply department and they said that they sent a new prescription through [facility] on 06/27. Noc Technician signed order in [employer]. [facility] 06-12-2023 Note Pt. cancelled PT re- evaluation due to not having anyone to watch her kids. [facility] 05-22-2023 Miscellaneous Notes Okay to sign and send documented in this encounter [facility] 05-22-2023 Telephone encounter Note Okay to sign and send [facility] 05-18-2023 Miscellaneous Notes Okay for atorvastatin. Humalog has different directions since last fill but I do not see dose changes in notes. Please advise documented in this encounter [facility] 05-18-2023 Telephone encounter Note Okay for atorvastatin. Humalog has different directions since last fill but I do not see dose changes in notes. Please advise [facility] 05-16-2023 History of Present illness Narrative Chief [...] Diagnosis Date Anxiety Asthma 05/16/2016 Bacterial vaginosis Goode hump Chronic hypertension affecting 01/15/2018 Depression Dizziness 03/07/2018 DM type 2 (diabetes mellitus, type 2) ([facility]) Fatigue Fibromyalgia Kaleb's thyroiditis Hearing loss 03/07/2018 History of intrauterine History of delivery HPP (hereditary pyropoikilocytosis) ([facility]) ENDOCRINOLOGY IS TESTING TO CONFIRM DIAGNOSIS HPP (hereditary pyropoikilocytosis) ([facility]) HTN (hypertension) Hyperlipidemia [...] Diagnosis Date Anxiety Asthma 05/16/2016 Bacterial vaginosis Goode hump Chronic hypertension affecting 01/15/2018 Depression Dizziness 03/07/2018 DM type 2 (diabetes mellitus, type 2) ([facility] [facility]) Fatigue Fibromyalgia Kaleb's thyroiditis Hearing loss 03/07/2018 History of intrauterine History of delivery HPP (hereditary pyropoikilocytosis) ([facility] [place]) ENDOCRINOLOGY IS TESTING TO CONFIRM DIAGNOSIS HPP (hereditary pyropoikilocytosis) ([facility] [place] [facility]) HTN (hypertension) Hyperlipidemia [...] strip, Rfl: 5 blood-glucose meter,continuous ([employer]) [facility], Use as direct to monitor sensor glucose., [...] sleep apnea) - PAP Mask and Supplies [id number] deficiency (CMS-HCC) Mild intermittent asthma without complication Class 1 [...] not to drive if sleepy, and to pin puller if sleepiness occurs while driving. Above plan as discussed with the patient who acknowledged understanding and agreement. Health risks associated with untreated BUTCH were discussed (cardiopulmonary, cerebrovascular, and anesthesia/sedative-related). CC: MD Dena CATALAN [facility] Office: [phone] 3:45 PM on 05/16/2023 This note is dictated with the use of M*Modal.Please note that this dictation was completed with computer voice recognition software. Quite often unanticipated grammatical, syntax, homophones, and other interpretive errors are inadvertently transcribed by the computer software. Please disregard these errors. Please excuse any errors that have escaped final proofreading. JOURDAN Ramírez 05/16/23 1545 documented in this encounter [facility] 05-16-2023 Instructions JOURDAN Ramírez - 05/16/2023 10:15 AM EST If you re looking for general health and wellness resources, please visit [email or web address]. documented in this encounter [facility] 05-01-2023 Note Pt. cancelled PT karen atment session on 05/01/23. Per front sight attacher staff, pt. states she has COVID-19. [facility] 04-12-2023 Note Spoke with client an d will be doing video sessions due to having a hard time being seen in person. Clinician will continue to monitor progress. Kindly, Zahraa Whittakerler [facility] 09-25-2021 Evaluation note Encounter Date Diagnosis Assessment Notes September, Cough (ICD-10 - R05.9) September, COVID-19 (ICD-10 - U07.1) Drink plenty fluids, get plenty of rest. Wear a mask for the next 5 days when you are out and about follow-up with your family physician if no improvement in 2 to 3 days Bottle Other Evaluation + Plan note Future Appointments Appointment Date:01/30/2023 08:00:00 AM Scheduled Provider:Zahraa Iqbal Location:[facility] Appointment Type:BH Therapy 60 [facility] evaluation + Plan note Future Appointments Appointment Date:03/27/2023 08:00:00 AM Scheduled Provider:Zahraa Iqbal Location:[facility] Appointment Type:BH Therapy 60 Appointment Date:04/17/2023 02:00:00 PM Scheduled Provider: Location:.SPEECH Appointment Type:Autism Assessment (FT) [facility] evaluation + Plan note Future Appointments Appointment Date:04/03/2023 09:00:00 AM Scheduled Provider:Zahraa Iqbal Location:[facility] Appointment Type:BH Therapy 60 Appointment Date:04/17/2023 02:00:00 PM Scheduled Provider: Location:FT[facility]SPEECH [facility] Appointment Date:05/01/2023 11:45:00 AM Scheduled Provider: Location:FT.PH[place]ICAL [place] Appointment Type:PT 45 (FT) Appointment Date:05/10/2023 01:00:00 PM Scheduled Provider: Location:[place] Appointment Type:PT 45 (FT) Appointment Date:05/15/2023 11:45:00 AM Scheduled Provider: Location:[place] Appointment Type:PT 45 (FT) Appointment Date:05/22/2023 11:30:00 AM Scheduled Provider: Location:[place] Appointment Type:PT Re-Eval 45 (FT) Appointment Date:05/29/2023 11:45:00 AM Scheduled Provider: Location:[place] Appointment Type:PT 45 (FT) Appointment Date:06/05/2023 11:45:00 AM Scheduled Provider: Location:[place] Appointment Type:PT Re-Eval 45 (FT) [facility] evaluation + Plan note Future Appointments Appointment Date:05/15/2023 11:45:00 AM Scheduled Provider: Location:[place] Appointment Type:PT 45 (FT) Appointment Date:05/22/2023 11:30:00 AM Scheduled Provider: Location:.[place] Appointment Type:PT Re-Eval 45 (FT) Appointment Date:05/29/2023 11:45:00 AM Scheduled Provider: Location:[place] Appointment Type:PT 45 (FT) Appointment Date:05/29/2023 03:00:00 PM Scheduled Provider:Zahraa Iqbal Location:[facility] Appointment Type:BH Video Visit Therapy 60 Appointment Date:06/05/2023 11:45:00 AM Scheduled Provider: Location:.[place] Appointment Type:PT Re-Eval 45 (FT) Appointment Date:06/26/2023 04:00:00 PM Scheduled Provider:Zahraa Iqbal Location:[facility]ments Appointment Date:05/29/2023 03:00:00 PM Scheduled Provider:Zahraa Iqbal Location:[facility] Appointment Type:BH Video Visit Therapy 60 Appointment Date:06/05/2023 11:45:00 AM Scheduled Provider: Location:.[place] Appointment Type:PT Re-Eval 45 (FT) Appointment Date:06/26/2023 04:00:00 PM Scheduled Provider:Zahraa Iqbal Location:[facility] Appointment Type:BH Therapy 60 [facility] evaluation + Plan note Future Appointments Appointment Date:06/05/2023 11:45:00 AM Scheduled Provider: Location:.[place] Appointment Type:PT Re-Eval 45 () Appointment Date:06/26/2023 04:00:00 PM Scheduled Provider:Zahraa Iqbal Location:[facility] Appointment Type:BH Therapy 60 [facility] evaluation + Plan note Future Appointments Appointment Date:09/05/2023 02:00:00 PM Scheduled Provider:Zahraa Iqbal Location:[facility] Appointment Type:BH Therapy 60 [facility] evaluation noteNo assessment information available [facility] Work Phone: Evaluation note* Diagnosis PTSD (post-traumatic stress disorder) ([facility]) Posttraumatic stress disorder [facility] Diagnosis Radiculopathy of cervical region Cervical dystonia Spasmodic torticollis Diabetic autonomic neuropathy associated with type 2 diabetes mellitus ([facility]) Type II or unspecified type diabetes mellitus with neurological manifestations, not stated as uncontrolled Fibromyalgia Unspecified myalgia and myositis Lumbar radiculopathy Thoracic or lumbosacral neuritis or radiculitis, unspecified PTSD (post-traumatic stress disorder) ([facility]) Posttraumatic stress disorder Attention deficit hyperactivity disorder (ADHD), combined type ([facility]) [facility]* Diagnosis ISAAC (generalized anxiety disorder) ([facility]/H[facility])- Primary Generalized anxiety disorder 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 Seasonal allergic rhinitis due to pollen GERD without esophagitis Esophageal reflux Generalized abdominal pain- Primary Abdominal pain, generalized Chronic idiopathic constipation Unspecified constipation Chronic idiopathic constipation- Primary Unspecified constipation Autism spectrum disorder ([facility]/HCC) Autistic disorder, current or active state 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 Acute non-recurrent pansinusitis- Primary Benign essential hypertension ([facility]/H[facility]) Essential hypertension, benign ISAAC (generalized anxiety disorder) ([facility]/H[facility])- Primary Generalized anxiety disorder Acute non-recurrent pansinusitis Seasonal allergic rhinitis due to pollen GERD without esophagitis Esophageal reflux Type 2 diabetes mellitus with hyperglycemia, with long-term current use of insulin ([facility]) ISAAC (generalized anxiety disorder) ([facility])- Primary Generalized anxiety disorder Chronic rhinosinusitis Unspecified sinusitis (chronic) Type 2 diabetes mellitus with polyneuropathy ([facility]) Type II or unspecified type diabetes mellitus with neurological manifestations, not stated as uncontrolled Type 2 diabetes mellitus with hyperglycemia, with long-term current use of insulin ([facility]) Type 2 diabetes mellitus with other specified complication ([facility]) Hyperlipidemia, unspecified ([facility]) Allergic reaction to bee sting- Primary Type 2 diabetes mellitus with hyperglycemia, with long-term current use of insulin ([facility]) Postural orthostatic tachycardia syndrome (POTS) GERD without esophagitis Esophageal reflux PTSD (post-traumatic stress disorder) ([facility]) Posttraumatic stress disorder Attention deficit hyperactivity disorder (ADHD), combined type ([facility]) [facility]* Diagnosis ISAAC (generalized anxiety disorder) ([facility])- Primary Generalized anxiety disorder 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[facility]) Disorders of phosphorus metabolism Seasonal allergic rhinitis due to pollen GERD without esophagitis Esophageal reflux Generalized abdominal pain- Primary Abdominal pain, generalized Chronic idiopathic constipation Unspecified constipation Chronic idiopathic constipation- Primary Unspecified constipation Autism spectrum disorder ([facility]) Autistic disorder, current or active state 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[facility]) Disorders of phosphorus metabolism Acute non-recurrent pansinusitis- Primary Benign essential hypertension ([facility]) Essential hypertension, benign ISAAC (generalized anxiety disorder) ([facility])- Primary Generalized anxiety disorder Acute non-recurrent pansinusitis Seasonal allergic rhinitis due to pollen GERD without esophagitis Esophageal reflux Type 2 diabetes mellitus with hyperglycemia, with long-term current use of insulin ([facility]) ISAAC (generalized anxiety disorder) ([facility])- Primary Generalized anxiety disorder Chronic rhinosinusitis Unspecified sinusitis (chronic) Type 2 diabetes mellitus with polyneuropathy ([facility]) Type II or unspecified type diabetes mellitus with neurological manifestations, not stated as uncontrolled Type 2 diabetes mellitus with hyperglycemia, with long-term current use of insulin ([facility]) Type 2 diabetes mellitus with other specified complication ([facility]) Hyperlipidemia, unspecified ([facility]) Allergic reaction to bee sting- Primary Type 2 diabetes mellitus with hyperglycemia, with long-term current use of insulin ([facility]) Postural orthostatic tachycardia syndrome (POTS) GERD without esophagitis Esophageal reflux Chronic rhinosinusitis- Primary Unspecified sinusitis (chronic) documented in this encounter [facility]* Diagnosis ISAAC (generalized anxiety disorder) ([facility])- Primary Generalized anxiety disorder 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[facility]) Disorders of phosphorus metabolism Seasonal allergic rhinitis due to pollen GERD without esophagitis Esophageal reflux Generalized abdominal pain- Primary Abdominal pain, generalized Chronic idiopathic constipation Unspecified constipation Chronic idiopathic constipation- Primary Unspecified constipation Autism spectrum disorder ([facility]) Autistic disorder, current or active state 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[facility]) Disorders of phosphorus metabolism Acute non-recurrent pansinusitis- Primary Benign essential hypertension ([facility]) Essential hypertension, benign ISAAC (generalized anxiety disorder) ([facility])- Primary Generalized anxiety disorder Acute non-recurrent pansinusitis Seasonal allergic rhinitis due to pollen GERD without esophagitis Esophageal reflux Type 2 diabetes mellitus with hyperglycemia, with long-term current use of insulin ([facility]) ISAAC (generalized anxiety disorder) ([facility])- Primary Generalized anxiety disorder Chronic rhinosinusitis Unspecified sinusitis (chronic) Type 2 diabetes mellitus with polyneuropathy ([facility]) Type II or unspecified type diabetes mellitus with neurological manifestations, not stated as uncontrolled Type 2 diabetes mellitus with hyperglycemia, with long-term current use of insulin ([facility]) Type 2 diabetes mellitus with other specified complication ([facility]) Hyperlipidemia, unspecified ([facility]) Allergic reaction to bee sting- Primary Type 2 diabetes mellitus with hyperglycemia, with long-term current use of insulin ([facility]) Postural orthostatic tachycardia syndrome (POTS) GERD without esophagitis Esophageal reflux Chronic rhinosinusitis- Primary Unspecified sinusitis (chronic) Benign essential hypertension ([facility])- Primary Essential hypertension, benign ISAAC (generalized anxiety disorder) ([facility]) Generalized anxiety disorder GERD without esophagitis Esophageal reflux Postural orthostatic tachycardia syndrome (POTS) Chronic rhinosinusitis Unspecified sinusitis (chronic) Type 2 diabetes mellitus with hyperglycemia, with long-term current use of insulin ([facility]) documented in this encounter [facility]* 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 Type 2 diabetes mellitus without complication, without long-term current use of insulin ([facility]) PCOS (polycystic ovarian syndrome) Polycystic ovaries [facility] Diagnosis ISAAC (generalized anxiety disorder) ([facility])- Primary Generalized anxiety disorder Chronic rhinosinusitis Unspecified sinusitis (chronic) Type 2 diabetes mellitus with polyneuropathy ([facility]) Type II or unspecified type diabetes mellitus with neurological manifestations, not stated as uncontrolled Type 2 diabetes mellitus with hyperglycemia, with long-term current use of insulin ([facility]) Type 2 diabetes mellitus with other specified complication ([facility]) Hyperlipidemia, unspecified ([facility]) [facility]* Diagnosis Well woman exam with routine gynecological exam Routine gynecological examination [facility]* Diagnosis PTSD (post-traumatic stress disorder) ([facility]) Posttraumatic stress disorder documented [facility] encounter [facility]* Diagnosis Allergic reaction to bee sting- Primary Type 2 diabetes mellitus with hyperglycemia, with long-term current use of insulin ([facility]) Postural orthostatic tachycardia syndrome (POTS) GERD without esophagitis Esophageal reflux documented in this encounter [facility]* Diagnosis ISAAC (generalized anxiety disorder) ([facility])- Primary Generalized anxiety disorder 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[facility]) Disorders of phosphorus metabolism Seasonal allergic rhinitis due to pollen GERD without esophagitis Esophageal reflux Generalized abdominal pain- Primary Abdominal pain, generalized Chronic idiopathic constipation Unspecified constipation Chronic idiopathic constipation- Primary Unspecified constipation Autism spectrum disorder ([facility]) Autistic disorder, current or active state 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[facility]) Disorders of phosphorus metabolism Acute non-recurrent pansinusitis- Primary Benign essential hypertension ([facility]) Essential hypertension, benign ISAAC (generalized anxiety disorder) ([facility])- Primary Generalized anxiety disorder Acute non-recurrent pansinusitis Seasonal allergic rhinitis due to pollen GERD without esophagitis Esophageal reflux Type 2 diabetes mellitus with hyperglycemia, with long-term current use of insulin ([facility]) ISAAC (generalized anxiety disorder) ([facility])- Primary Generalized anxiety disorder Chronic rhinosinusitis Unspecified sinusitis (chronic) Type 2 diabetes mellitus with polyneuropathy ([facility]) Type II or unspecified type diabetes mellitus with neurological manifestations, not stated as uncontrolled Type 2 diabetes mellitus with hyperglycemia, with long-term current use of insulin ([facility]) Type 2 diabetes mellitus with other specified complication ([facility]) Hyperlipidemia, unspecified ([facility]) Allergic reaction to bee sting- Primary Type 2 diabetes mellitus with hyperglycemia, with long-term current use of insulin (CMS/HCC) Postural orthostatic tachycardia syndrome (POTS) GERD without esophagitis Esophageal reflux Chronic rhinosinusitis- Primary Unspecified sinusitis (chronic) Benign essential hypertension (CMS/HCC)- Primary Essential hypertension, benign ISAAC (generalized anxiety disorder) (CMS/HCC) Generalized anxiety disorder GERD without esophagitis Esophageal reflux Postural orthostatic tachycardia syndrome (POTS) Chronic rhinosinusitis Unspecified sinusitis (chronic) Type 2 diabetes mellitus with hyperglycemia, with long-term current use of insulin (CMS/HCC) Acute non-recurrent pansinusitis- Primary GERD without esophagitis Esophageal reflux [facility] Diagnosis Type 2 diabetes mellitus without complication, without long-term current use of insulin ([facility])- Primary Excessive bleeding in premenopausal period Premenopausal menorrhagia PCOS (polycystic ovarian syndrome) Polycystic ovaries Juvenile hypophosphatasia Disorders of phosphorus metabolism [facility] Mixed hyperlipidemia [facility]* Diagnosis ISAAC (generalized anxiety disorder) (CMS/HCC)- Primary Generalized anxiety disorder 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CMS/HCC) Disorders of phosphorus metabolism Seasonal allergic rhinitis due to pollen GERD without esophagitis Esophageal reflux Generalized abdominal pain- Primary Abdominal pain, generalized Chronic idiopathic constipation Unspecified constipation Chronic idiopathic constipation- Primary Unspecified constipation Autism spectrum disorder ([facility]/HCC) Autistic disorder, current or active state 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CMS/HCC) Disorders of phosphorus metabolism Acute non-recurrent pansinusitis- Primary Benign essential hypertension (CMS/HCC) Essential hypertension, benign ISAAC (generalized anxiety disorder) ([facility]/HCC)- Primary Generalized anxiety disorder Acute non-recurrent pansinusitis Seasonal allergic rhinitis due to pollen GERD without esophagitis Esophageal reflux Type 2 diabetes mellitus with hyperglycemia, with long-term current use of insulin (CMS/HCC) ISAAC (generalized anxiety disorder) (CMS/HCC)- Primary Generalized anxiety disorder Chronic rhinosinusitis Unspecified sinusitis (chronic) Type 2 diabetes mellitus with polyneuropathy ([facility]/HCC) Type II or unspecified type diabetes mellitus with neurological manifestations, not stated as uncontrolled Type 2 diabetes mellitus with hyperglycemia, with long-term current use of insulin ([facility]/HCC) Type 2 diabetes mellitus with other specified complication (CMS/HCC) Hyperlipidemia, unspecified (CMS/HCC) Allergic reaction to bee sting- Primary Type 2 diabetes mellitus with hyperglycemia, with long-term current use of insulin ([facility]) Postural orthostatic tachycardia syndrome (POTS) GERD without esophagitis Esophageal reflux Chronic rhinosinusitis- Primary Unspecified sinusitis (chronic) Benign essential hypertension (CMS/HCC)- Primary Essential hypertension, benign ISAAC (generalized anxiety disorder) (CMS/[facility]) Generalized anxiety disorder GERD without esophagitis Esophageal reflux Postural orthostatic tachycardia syndrome (POTS) Chronic rhinosinusitis Unspecified sinusitis (chronic) Type 2 diabetes mellitus with hyperglycemia, with long-term current use of insulin (CMS/HCC) Acute non-recurrent pansinusitis- Primary GERD without esophagitis Esophageal reflux Dysuria- Primary Type 2 diabetes mellitus with hyperglycemia, with long-term current use of insulin ([facility]) [facility] BUTCH (obstructive sleep apnea)- Primary Obstructive sleep apnea (adult) (pediatric) 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 Mild intermittent asthma without complication Class 1 obesity with body mass index (BMI) of 31.0 to 31.9 in adult, unspecified obesity type, unspecified whether serious comorbidity present CPAP use counseling documented [facility]* Diagnosis Mixed hyperlipidemia Type 2 diabetes mellitus with hyperglycemia, with long-term current use of insulin ([facility]) documented in this encounter [facility]* Diagnosis Type 2 diabetes mellitus with hyperglycemia, with long-term current use of insulin ([facility]) 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 documented in this encounter [facility]* Diagnosis Type 2 diabetes mellitus without complication, without long-term current use of insulin ([facility]) [facility] Diagnosis Type 2 diabetes mellitus without complication, without long-term current use of insulin ([facility])- Primary Excessive bleeding in premenopausal period Premenopausal menorrhagia PCOS (polycystic ovarian syndrome) Polycystic ovaries [facility] Diagnosis Type 2 diabetes mellitus with hyperglycemia, with long-term current use of insulin ([facility])- Primary 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 documented in this encounter [facility]* Diagnosis Lumbar spondylosis- Primary Lumbosacral spondylosis without myelopathy Disorder of sacrum Disorders of sacrum Lumbar radiculopathy Thoracic or lumbosacral neuritis or radiculitis, unspecified documented in this encounter [facility]* Diagnosis Type 2 diabetes mellitus with hyperglycemia, with long-term current use of insulin ([facility])- Primary At risk for bone density loss Other specified conditions influencing health status Other specified disorders of bone density and structure, other site 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 Nodular goiter Unspecified nontoxic nodular goiter Primary hypothyroidism Unspecified hypothyroidism Mixed hyperlipidemia documented in this encounter [facility]* Diagnosis BUTCH (obstructive sleep apnea)- Primary Obstructive sleep apnea (adult) (pediatric) Mild intermittent asthma without complication documented in this encounter [facility]* Diagnosis Irregular menses- Primary Irregular menstrual cycle 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 documented in this encounter [facility]* Diagnosis Mild intermittent asthma without complication documented in this encounter [facility]* Diagnosis Type 2 diabetes mellitus with hyperglycemia, with long-term current use of insulin ([facility])- Primary 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 Benign hypertension Essential hypertension, benign H/O tubal ligation documented in this encounter [facility]* Diagnosis Type 2 diabetes mellitus with hyperglycemia, with long-term current use of insulin ([facility]) documented in this encounter [facility]* Diagnosis ISAAC (generalized anxiety disorder) ([facility])- Primary Generalized anxiety disorder 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 Seasonal allergic rhinitis due to pollen GERD without esophagitis Esophageal reflux Generalized abdominal pain- Primary Abdominal pain, generalized Chronic idiopathic constipation Unspecified constipation Chronic idiopathic constipation- Primary Unspecified constipation Autism spectrum disorder ([facility]) Autistic disorder, current or active state 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 Acute non-recurrent pansinusitis- Primary Benign essential hypertension (CMS/HCC) Essential hypertension, benign ISAAC (generalized anxiety disorder) ([facility])- Primary Generalized anxiety disorder Acute non-recurrent pansinusitis Seasonal allergic rhinitis due to pollen GERD without esophagitis Esophageal reflux Type 2 diabetes mellitus with hyperglycemia, with long-term current use of insulin ([facility]) ISAAC (generalized anxiety disorder) ([facility])- Primary Generalized anxiety disorder Chronic rhinosinusitis Unspecified sinusitis (chronic) Type 2 diabetes mellitus with polyneuropathy ([facility]) Type II or unspecified type diabetes mellitus with neurological manifestations, not stated as uncontrolled Type 2 diabetes mellitus with hyperglycemia, with long-term current use of insulin ([facility]) Type 2 diabetes mellitus with other specified complication ([facility]) Hyperlipidemia, unspecified ([facility]) Allergic reaction to bee sting- Primary Type 2 diabetes mellitus with hyperglycemia, with long-term current use of insulin ([facility]) Postural orthostatic tachycardia syndrome (POTS) GERD without esophagitis Esophageal reflux Chronic rhinosinusitis- Primary Unspecified sinusitis (chronic) Benign essential hypertension (CMS/[facility])- Primary Essential hypertension, benign ISAAC (generalized anxiety disorder) ([facility]) Generalized anxiety disorder GERD without esophagitis Esophageal reflux Postural orthostatic tachycardia syndrome (POTS) Chronic rhinosinusitis Unspecified sinusitis (chronic) Type 2 diabetes mellitus with hyperglycemia, with long-term current use of insulin ([facility]) Acute non-recurrent pansinusitis- Primary GERD without esophagitis Esophageal reflux Dysuria- Primary Type 2 diabetes mellitus with hyperglycemia, with long-term current use of insulin ([facility]) Generalized abdominal pain- Primary Abdominal pain, generalized [facility] 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 Excessive bleeding in premenopausal period Premenopausal menorrhagia Type 2 diabetes mellitus without complication, without long-term current use of insulin ([facility]) Insulin pump status [facility] Diagnosis Sensation of fullness in both ears- Primary Seasonal allergic rhinitis due to pollen Bruxism Other specified psychophysiological malfunction Dizziness Dizziness and giddiness [facility] Diagnosis Bilateral tinnitus- Primary Sensation of fullness in ear, bilateral documented in this encounter [facility]* Diagnosis Type 2 diabetes mellitus without complication, without long-term current use of insulin ([facility])- Primary Juvenile hypophosphatasia Disorders of phosphorus metabolism Insulin pump status PCOS (polycystic ovarian syndrome) Polycystic ovaries [facility] Diagnosis ISAAC (generalized anxiety disorder) ([facility])- Primary Generalized anxiety disorder 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[facility]) Disorders of phosphorus metabolism Seasonal allergic rhinitis due to pollen GERD without esophagitis Esophageal reflux Generalized abdominal pain- Primary Abdominal pain, generalized Chronic idiopathic constipation Unspecified constipation Chronic idiopathic constipation- Primary Unspecified constipation Autism spectrum disorder ([facility]) Autistic disorder, current or active state 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[facility]) Disorders of phosphorus metabolism Acute non-recurrent pansinusitis- Primary Benign essential hypertension ([facility]) Essential hypertension, benign ISAAC (generalized anxiety disorder) ([facility])- Primary Generalized anxiety disorder Acute non-recurrent pansinusitis Seasonal allergic rhinitis due to pollen GERD without esophagitis Esophageal reflux Type 2 diabetes mellitus with hyperglycemia, with long-term current use of insulin ([facility]) ISAAC (generalized anxiety disorder) ([facility])- Primary Generalized anxiety disorder Chronic rhinosinusitis Unspecified sinusitis (chronic) Type 2 diabetes mellitus with polyneuropathy ([facility]) Type II or unspecified type diabetes mellitus with neurological manifestations, not stated as uncontrolled Type 2 diabetes mellitus with hyperglycemia, with long-term current use of insulin ([facility]) Type 2 diabetes mellitus with other specified complication Hyperlipidemia, unspecified ([facility]) Allergic reaction to bee sting- Primary Type 2 diabetes mellitus with hyperglycemia, with long-term current use of insulin ([facility]) Postural orthostatic tachycardia syndrome (POTS) GERD without esophagitis Esophageal reflux Chronic rhinosinusitis- Primary Unspecified sinusitis (chronic) Benign essential hypertension ([facility]/HCC)- Primary Essential hypertension, benign ISAAC (generalized anxiety disorder) ([facility]) Generalized anxiety disorder GERD without esophagitis Esophageal reflux Postural orthostatic tachycardia syndrome (POTS) Chronic rhinosinusitis Unspecified sinusitis (chronic) Type 2 diabetes mellitus with hyperglycemia, with long-term current use of insulin ([facility]) Dysuria- Primary Type 2 diabetes mellitus with hyperglycemia, with long-term current use of insulin ([facility]) Generalized abdominal pain- Primary Abdominal pain, generalized Benign essential hypertension ([facility]/HCC)- Primary Essential hypertension, benign Postural orthostatic tachycardia syndrome (POTS) Generalized abdominal pain Abdominal pain, generalized ISAAC (generalized anxiety disorder) ([facility]) Generalized anxiety disorder GERD without esophagitis Esophageal reflux Seasonal allergic rhinitis due to pollen [facility] Diagnosis Type 2 diabetes mellitus with hyperglycemia, with long-term current use of insulin ([facility]) [facility] Diagnosis BUTCH (obstructive sleep apnea)- Primary Obstructive sleep apnea (adult) (pediatric) Mild intermittent asthma without complication Asako-8-glfjdgmvxrk deficiency ([facility]) Dynor-1-dgumpxlxiok deficiency CPAP use counseling BMI 30.0-30.9,adult Obesity, Class I, BMI 30-34.9 documented in this encounter [facility]* Diagnosis ISAAC (generalized anxiety disorder)- Primary Generalized anxiety disorder Hypophosphatasia Disorders of phosphorus metabolism Seasonal allergic rhinitis due to pollen GERD without esophagitis Esophageal reflux Generalized abdominal pain- Primary Abdominal pain, generalized Chronic idiopathic constipation Unspecified constipation Chronic idiopathic constipation- Primary Unspecified constipation Autism spectrum disorder (HCC) Autistic disorder, current or active state Hypophosphatasia Disorders of phosphorus metabolism Acute non-recurrent pansinusitis- Primary Benign essential hypertension Essential hypertension, benign ISAAC (generalized anxiety disorder)- Primary Generalized anxiety disorder Acute non-recurrent pansinusitis Seasonal allergic rhinitis due to pollen GERD without esophagitis Esophageal reflux Type 2 diabetes mellitus with hyperglycemia, with long-term current use of insulin ([facility]) ISAAC (generalized anxiety disorder)- Primary Generalized anxiety disorder Chronic rhinosinusitis Unspecified sinusitis (chronic) Type 2 diabetes mellitus with polyneuropathy ([facility]) Type II or unspecified type diabetes mellitus with neurological manifestations, not stated as uncontrolled Type 2 diabetes mellitus with hyperglycemia, with long-term current use of insulin ([facility]) Type 2 diabetes mellitus with other specified complication ([facility]) Hyperlipidemia, unspecified Allergic reaction to bee sting- Primary Type 2 diabetes mellitus with hyperglycemia, with long-term current use of insulin ([facility]) Postural orthostatic tachycardia syndrome (POTS) GERD without esophagitis Esophageal reflux Chronic rhinosinusitis- Primary Unspecified sinusitis (chronic) Benign essential hypertension- Primary Essential hypertension, benign ISAAC (generalized anxiety disorder) Generalized anxiety disorder GERD without esophagitis Esophageal reflux Postural orthostatic tachycardia syndrome (POTS) Chronic rhinosinusitis Unspecified sinusitis (chronic) Type 2 diabetes mellitus with hyperglycemia, with long-term current use of insulin ([facility]) Acute non-recurrent pansinusitis- Primary GERD without esophagitis Esophageal reflux Dysuria- Primary Type 2 diabetes mellitus with hyperglycemia, with long-term current use of insulin ([facility]) Generalized abdominal pain- Primary Abdominal pain, generalized Benign essential hypertension- Primary Essential hypertension, benign Postural orthostatic tachycardia syndrome (POTS) Generalized abdominal pain Abdominal pain, generalized ISAAC (generalized anxiety disorder) Generalized anxiety disorder GERD without esophagitis Esophageal reflux Seasonal allergic rhinitis due to pollen Acute non-recurrent pansinusitis- Primary Type 2 diabetes mellitus with hyperglycemia, with long-term current use of insulin ([facility]) [facility] Diagnosis Type 2 diabetes mellitus without complication, without long-term current use of insulin ([facility])- Primary [facility] Diagnosis ISAAC (generalized anxiety disorder)- Primary Generalized anxiety disorder Hypophosphatasia Disorders of phosphorus metabolism Seasonal allergic rhinitis due to pollen GERD without esophagitis Esophageal reflux Generalized abdominal pain- Primary Abdominal pain, generalized Chronic idiopathic constipation Unspecified constipation Chronic idiopathic constipation- Primary Unspecified constipation Autism spectrum disorder (HCC) Autistic disorder, current or active state Hypophosphatasia Disorders of phosphorus metabolism Acute non-recurrent pansinusitis- Primary Benign essential hypertension Essential hypertension, benign ISAAC (generalized anxiety disorder)- Primary Generalized anxiety disorder Acute non-recurrent pansinusitis Seasonal allergic rhinitis due to pollen GERD without esophagitis Esophageal reflux Type 2 diabetes mellitus with hyperglycemia, with long-term current use of insulin ([facility]) ISAAC (generalized anxiety disorder)- Primary Generalized anxiety disorder Chronic rhinosinusitis Unspecified sinusitis (chronic) Type 2 diabetes mellitus with polyneuropathy (HCC) Type II or unspecified type diabetes mellitus with neurological manifestations, not stated as uncontrolled Type 2 diabetes mellitus with hyperglycemia, with long-term current use of insulin ([facility]) Type 2 diabetes mellitus with other specified complication (HCC) Hyperlipidemia, unspecified Allergic reaction to bee sting- Primary Type 2 diabetes mellitus with hyperglycemia, with long-term current use of insulin ([facility]) Postural orthostatic tachycardia syndrome (POTS) GERD without esophagitis Esophageal reflux Chronic rhinosinusitis- Primary Unspecified sinusitis (chronic) Benign essential hypertension- Primary Essential hypertension, benign ISAAC (generalized anxiety disorder) Generalized anxiety disorder GERD without esophagitis Esophageal reflux Postural orthostatic tachycardia syndrome (POTS) Chronic rhinosinusitis Unspecified sinusitis (chronic) Type 2 diabetes mellitus with hyperglycemia, with long-term current use of insulin ([facility]) Acute non-recurrent pansinusitis- Primary GERD without esophagitis Esophageal reflux Dysuria- Primary Type 2 diabetes mellitus with hyperglycemia, with long-term current use of insulin ([facility]) Generalized abdominal pain- Primary Abdominal pain, generalized Benign essential hypertension- Primary Essential hypertension, benign Postural orthostatic tachycardia syndrome (POTS) Generalized abdominal pain Abdominal pain, generalized ISAAC (generalized anxiety disorder) Generalized anxiety disorder GERD without esophagitis Esophageal reflux Seasonal allergic rhinitis due to pollen Acute non-recurrent pansinusitis- Primary Type 2 diabetes mellitus with hyperglycemia, with long-term current use of insulin (HCC) Well woman exam with routine gynecological exam Routine gynecological examination Vaginal discharge Leukorrhea, not specified as infective Family history of breast cancer in mother Family history of malignant neoplasm of breast [facility] - Reported* Type Description Date Medical History Diabetes Medical History Hypertension Medical History Tachycardia Medical History Hypothyroidism Medical History Depression with anxiety Medical History Fibromyalgia Surgical History rhinoplasty 2009 Surgical History tonsillectomy and adenoidectomy Surgical History c-sections Hospitalization History see above surgical histo ry Bottle Other Hospital course Narrative No data available for this section [facility] Discharge instructions No data available for this section [facility] InstructionsNot on filedocumented in this encounter [facility] filedocumented in this [facility] filedocumented in this [facility] filedocumented in this encounter [facility] filedocumented in this encounter [facility] filedocumented in this encounter [facility] filedocumented in this encounter [facility] filedocumented in [facility] filedocumented in this [facility] filedocumented in this [facility] No data available for this section [facility] reason for referral (narrative)* Consultation (Routine) - Pending Review Specialty Diagnoses / Procedures Referred By Contac t Referred To Contact Psychology Diagnoses ISAAC (generalized anxiety disorder) ([facility]) Procedures HI OFFICE/OUTPATIENT NEW HIGH MDM 60 MINUTES Blanco Chavez MD [address] [place] [address] Bibi Velazquez S, [employer] [address] [place] [address] Referral ID Status Reason Start Date Expiration Date Visits Requested Visits Authorized [id number] Pending Review Specialty Services Required 01/02/2024 06/30/2024 1 1 * Consultation (Routine) - Pending Review Specialty Diagnoses / Procedures Referred By Contac t Referred To Contact Otolaryngology Diagnoses Chronic rhinosinusitis Procedures HI OFFICE/OUTPATIENT NEW HIGH MDM 60 MINUTES Blanco Chavez MD [address] [place] [address] Lance Griffin, DO [address] [place] [address] Referral ID Status Reason Start Date Expiration Date Visits Requested Visits Authorized [id number] Pending Review Specialty Services Required 01/02/2024 06/30/2024 1 1 [facility] for referral (narrative)* Consultation (Routine) - Pending Review Specialty Diagnoses / Procedures Referred By Contac t Referred To Contact Endocrinology, Diabetes & Metabolism Diagnoses Type 2 diabetes mellitus with hyperglycemia, with long-term current use of insulin ([facility]) Renetta Cabrera MD [address] [place] [address] [facility] [address] [place] [address] Referral ID Status Reason Start Date Expiration Date Visits Requested Visits Authorized [id number] Pending Review Specialty Services Required 07/17/2023 07/16/2024 1 1 [facility] Summary Purpose Family History No Family History [...] FoundNo Family History Records Found [facility] Directives Advance Directive Response Recorded Date/ Time Advance Directives No January 11:33am Date Activated Date Inactivated Comments 01/14/2018 8:04 PM 01/17/2018 5:21 PM Latest Code Status on File Code Status Date Activated Date Inactivated Comments Full Code 01/14/2018 8:04 PM 01/17/2018 5:21 PM Latest Code Status on File Code Status Date Activated Date Inactivated Comments Full Code 01/14/2018 8:04 PM 01/17/2018 5:21 PM Date Activated Date Inactivated Comments 01/14/2018 8:04 PM 01/17/2018 5:21 PM Chief Complaint and Reason for Visit Chief Complaint cough, congestion, f ever Reason for Referral Specialty Diagnoses / Procedures Referred By Contbg t Referred To Contact Rehabilitation Diagnoses Lumbar spondylosis Disorder of sacrum Lumbar radiculopathy Amanda Simpson, VIANEY [address], [address] [place] [address] Referral ID Status Reason Start Date Expiration Date Visits Requested Visits Authorized [id number] Pending Review Specialty Services Required 07/11/2023 07/10/2024 1 1 Specialty Diagnoses / Procedures Referred By Contbg t Referred To Contact Diagnoses Type 2 diabetes mellitus without complication, without long-term current use of insulin (HCC) Procedures CONSULT TO DIABETES EDUCATION DSME MEDICAL NUTRITION ASSMT&IVNTJ INDIV EACH 15 IN MEDICAL NUTRITION ASSMT&IVNTJ INDIV EACH 15 IN MEDICAL NUTRITION ASSMT&IVNTJ INDIV EACH 15 IN MEDICAL NUTRITION ASSMT&IVNTJ INDIV EACH 15 IN Irina Moreno MD [address] [place] [address] Referral ID Status Reason Start Date Expiration Date Visits Requested Visits Authorized [id number] Authorized PCP Requested Referral 05/22/2024 05/22/2025 1 1 Specialty Diagnoses / Procedures Referred By Contbg t Referred To Contact Gynecology Diagnoses Excessive bleeding in premenopausal period Procedures CONSULT TO GYNECOLOGY OFFICE/OUTPATIENT [facility] 60 MINUTES Irina Moreno MD [address] [place] [address] Referral ID Status Reason Start Date Expiration Date Visits Requested Visits Authorized [id number] Authorized PCP Requested Referral Auto-Generate d Referral 05/22/2024 05/22/2025 1 1 Additional Source Comments INFORMATION SOURCE (unrecogn ized section and content) DATE CREATED AUTHOR 11/07/2017 [facility] DATE CREATED AUTHOR AUTHOR'S ORGANIZ ATION 09/21/2018 [facility] DATE CREATED AUTHOR AUTHOR'S ORGANIZ ATION 02/19/2019 [facility] DATE CREATED AUTHOR AUTHOR'S ORGANIZ ATION 01/14/2020 [facility] DATE CREATED AUTHOR AUTHOR'S ORGANIZ ATION 03/06/2022 [facility] DATE CREATED AUTHOR AUTHOR'S ORGANIZ ATION 06/22/2023 [facility] DATE CREATED AUTHOR AUTHOR'S ORGANIZ ATION 01/18/2024 [facility] DATE CREATED AUTHOR AUTHOR'S ORGANIZ ATION 02/05/2024 [facility] DATE CREATED AUTHOR AUTHOR'S ORGANIZ ATION 09/25/2024 [facility] DATE CREATED AUTHOR AUTHOR'S ORGANIZ ATION 10/18/2024 [facility] DATE CREATED AUTHOR AUTHOR'S ORGANIZ ATION 11/08/2024 [facility] DATE CREATED AUTHOR AUTHOR'S ORGANIZ ATION 12/03/2024 [facility] DATE CREATED AUTHOR AUTHOR'S ORGANIZ ATION 12/28/2024 [facility] REASON FOR VISIT (unrecogniz ed section and content) Reason Comments Treatment Planning Reason Comments Counseling session Specialty Diagnoses / Procedures Referred By Contac t Referred To Contact Physical Therapy Diagnoses Radiculopathy of cervical region Cervical dystonia Diabetic autonomic neuropathy associated with type 2 diabetes mellitus (CMS/HCC) Fibromyalgia Lumbar radiculopathy Procedures HI OFFICE/OUTPATIENT NEW HIGH MDM 60 MINUTES Pieter Vargas MD [address] [place] [address] [facility] [address] [place] [address] Referral ID Status Reason Start Date Expiration Date V isits Requested Visits Authorized [id number] Closed Specialty Services Required 08/27/2023 02/23/2024 1 1 Reason Comments Earache Sharp pains, crackli ng noise Reason Comments Sore Throat Follow-up 6m Reason Comments Clinical Update Reason Comments Follow-up Anxiety Reason Comments Well Women Visit Reason Onset Date Comments couseling appt 01/08/2024 Reason Comments New Patient Assessment Reason Comments Follow-up [facility] f/u Sinus Problem Reason Comments Ear Fullness Facial Swelling Right side swelling Sore Throat Reason Comments Follow Up High Blood Sugar Insulin Dependent Diabetes Mellitus Reason Comments Med Refill Reason Comments UTI Reason Comments No Show Reason Comments Sleep Apnea Asthma CXR: 3PFT: 03/02/2023 Reason Onset Date Comments Med Refill 05/22/2023 Reason Comments Diabetes Self Management Education Specialty Diagnoses / Procedures Referred By Contac t Referred To Contact Diagnoses Type 2 diabetes mellitus without complication, without long-term current use of insulin ([facility]) Procedures CONSULT TO DIABETES EDUCATION DSME MEDICAL NUTRITION ASSMT&IVNTJ INDIV EACH 15 IN MEDICAL NUTRITION ASSMT&IVNTJ INDIV EACH 15 IN MEDICAL NUTRITION ASSMT&IVNTJ INDIV EACH 15 IN MEDICAL NUTRITION ASSMT&IVNTJ INDIV EACH 15 IN Irina Moreno MD [address] [place] [address] Phone: tel: fax: Referral ID Status Reason Start Date Expiration Date V isits Requested Visits Authorized [id number] Closed PCP Requested Referral 05/22/2024 05/22/2025 1 1 Reason Comments Diabetes Mellitus Reason Comments Back Pain Reason Comments Asthma CXR: 3PFT: 03/02/2023 Sleep Apnea DME: [facility] Reason Comments Diabetes Reason Onset Date Comments Med Refill 02/19/2024 Reason Comments Back Pain Abdominal Pain Swollen and tender t o touch Reason Comments Med Change Request Reason Comments meineres Sinus Problem Reason Comments Glucagon order Reason Comments Results Retroperitoneal Ultr asound Reason Comments Results Reason Onset Date Comments OTHER 09/09/2024 Reason Comments Juvenile hypophosphatasia Type 2 diabetes mellitus without complic ation, without long Reason Comments Follow-up 6m Bloated Constipation Reason Comments Sleep Apnea [facility] (not using )DME: [facility] Asthma CXR: 08/13/2024PFT: 08/18/2024 Reason Comments Follow-up Sinus infectionJust not feeling well Reason Comments Refill Request Patient Care team informatio n (unrecognized section and content) Team Status: Active Member Role Status Dates NON STAFF Primary Care Provider Active Team Status: Inactive Member Role Status Dates NON STAFF Primary Care Provider Active Start: January 25, 2024 End: January 25, 2024 Manjula Sood APRN Attending Provider Active Start: January 25, 2024 End: January 25, 2024 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 Relationship Specialty Start Date End Date Blanco Chavez MD [address] [place] [phone] PCP - General Family Medicine 06/05/23 Marian Huitron RN [address] [place] [address] Registered Nurse Family [facility] 01/31/24 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 Relationship Specialty Start Date End Date Blanco Chavez MD [address] [place] [phone] PCP - General Family Medicine 06/05/23 Marian Huitron RN [address] [facility] [place] [address] Registered Nurse Family Medicine 01/31/24 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 Relationship Specialty Start Date End Date Blanco Chavez MD [address] [place] [address] PCP - General Family Medicine 06/05/23 Marian Huitron RN [address] [place] [address] Registered Nurse Family Medicine 01/31/24 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 Relationship Specialty Start Date End Date Blanco Chavez MD [address] [place] [address] PCP - General Family Medicine 06/05/23 Marian Huitron RN [address] [place] [address] Registered Nurse Family Medicine 01/31/24 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 Relationship Specialty Start Date End Date Blanco Chavez MD [address] [place] [address] PCP - General Family Medicine 06/05/23 Marian Huitron RN [address] [place] [address] Registered Nurse Family Medicine 01/31/24 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 Relationship Specialty Start Date End Date Blanco Chavez MD [address] [place] [address] PCP - General Family Medicine 06/05/23 Marian Huitron RN [address] [place] [address] Registered Nurse Family Medicine 01/31/24 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 Relationship Specialty Start Date End Date Blanco Chavez MD [address] [place] [address] PCP - General Family Medicine 06/05/23 Marian Huitron RN [address] [place] [address] Registered Nurse Family Medicine 01/31/24 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 Relationship Specialty Start Date End Date Blanco Chavez MD [address] [place] [address] PCP - General Family Medicine 06/05/23 Marian Huitron, RN [address] [place] [address] Registered Nurse Family Medicine 01/31/24 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 Relationship Specialty Start Date End Date Blanco Chavez MD [address] [place] [address] PCP - General Family Medicine 06/05/23 Marian Huitron, RN [address] [place] [address] Registered Nurse Family Medicine 01/31/24 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 Relationship Specialty Start Date End Date Solo Weinberg PCP - General Family Medicine 03/18/12 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 Relationship Specialty Start Date End Date Blanco Chavez MD [address] [place] [address] PCP - General Family Medicine 06/05/23 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 Relationship Specialty Start Date End Date Blanco Chavez MD [address] [place] [address] PCP - General Family Medicine 06/05/23 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 Relationship Specialty Start Date End Date Blanco Chavez MD [address] [place] [address] PCP - General Family Medicine 06/05/23 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 Relationship Specialty Start Date End Date Blanco Chavez MD [address] [place] [address] PCP - General Family Medicine 06/05/23 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 Relationship Specialty Start Date End Date Blanco Chavez MD [address] [place] [address] PCP - General Family Medicine 06/05/23 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 Relationship Specialty Start Date End Date Blanco Chavez MD [address] [place] [address] PCP - General Family Medicine 06/05/23 Ana Lucero, [facility] Curator Herbarium Family Medicine 01/18/24 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 Relationship Specialty Start Date End Date Blanco Chavez MD [address] [place] [phone] PCP - General Family Medicine 06/05/23 Ana Lucero [facility] Curator Herbarium Family Medicine 01/18/24 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 Relationship Specialty Start Date End Date Blanco Chavez MD [address] [place] [address] PCP - General Family Medicine 06/05/23 Ana Lucero, [facility] Curator Herbarium Family Medicine 01/18/24 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 Relationship Specialty Start Date End Date Blanco Chavez MD [address] [place] [address] PCP - General Family Medicine 06/05/23 Marian Huitron, RN [address] [place] [address] Registered Nurse Family Medicine 01/31/24 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 Relationship Specialty Start Date End Date Blanco Chavez MD [address] [place] [address] PCP - General Family Medicine 06/05/23 Marian Huitron, RN [address] [place] [address] Registered Nurse Family Medicine 01/31/24 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 Relationship Specialty Start Date End Date Solo Weinberg PCP - General Family Medicine 03/18/12 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 Relationship Specialty Start Date End Date Solo Weinberg PCP - General Family Medicine 03/18/12 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 Relationship Specialty Start Date End Date Solo Weinberg PCP - General Family Medicine 03/18/12 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 Relationship Specialty Start Date End Date Blanco Chavez MD PCP - General Family Medicine 03/13/24 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 Relationship Specialty Start Date End Date Solo Weinberg PCP - General Family Medicine 03/18/12 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 Relationship Specialty Start Date End Date Blanco Chavez MD PCP - General Family Medicine 05/31/24 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 Relationship Specialty Start Date End Date Blanco Chavez MD PCP - General Family Medicine 05/31/24 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 Relationship Specialty Start Date End Date Blanco Chavez MD [address] [place] [address] PCP - General Family Medicine 06/05/23 Marian Huitron RN [address] [facility] [place] [address] Registered Nurse Family [facility] 01/31/24 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 Relationship Specialty Start Date End Date Blanco Chavez MD [address] [place] [address] PCP - General Family Medicine 06/05/23 Marian Huitron RN [address] [place] [address] Registered Nurse Family Medicine 01/31/24 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 Relationship Specialty Start Date End Date Solo Weinberg PCP - General Family Medicine 03/18/12 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 Relationship Specialty Start Date End Date Blanco Chavez MD [address] [facility] [place] [address] PCP - General Family Medicine 04/08/18 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 Relationship Specialty Start Date End Date Blanco Chavez MD [address] [facility] [address] PCP - General Family Medicine 04/08/18 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 Relationship Specialty Start Date End Date Blanco Chavez MD [address] [facility] [address] PCP - General Family Medicine 04/08/18 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 Relationship Specialty Start Date End Date Solo Weinberg PCP - General Family Medicine 03/18/12 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 Relationship Specialty Start Date End Date Solo Weinberg PCP - General Family Medicine 03/18/12 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 Relationship Specialty Start Date End Date Blanco Chavez MD [address] [place] [place] [address] PCP - General Family Medicine 04/08/18 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 Relationship Specialty Start Date End Date Blanco Chavez MD [address] [place] [place] [address] PCP - General Family Medicine 04/08/18 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 Relationship Specialty Start Date End Date Blanco Chavez MD [address] [place] [place] [address] PCP - General Family Medicine 04/08/18 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 Relationship Specialty Start Date End Date Blanco Chavez MD [address] [place] [place] [address] PCP - General Family Medicine 04/08/18 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 Relationship Specialty Start Date End Date Blanco Chavez MD [address] [place] [place] [address] PCP - General Family Medicine 04/08/18 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 Relationship Specialty Start Date End Date Blanco Chavez MD [address] [place] [place] [address] PCP - General Family Medicine 04/08/18 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 Relationship Specialty Start Date End Date Blanco Chavez MD [address] [place] [place] [address] PCP - General Family Medicine 04/08/18 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 Relationship Specialty Start Date End Date Blanco Chavez MD PCP - General Family Medicine 04/08/18 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 Relationship Specialty Start Date End Date Blanco Chavez MD PCP - General Family Medicine 04/08/18 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 Relationship Specialty Start Date End Date Blanco Chavez MD PCP - General Family Medicine 04/08/18 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 Relationship Specialty Start Date End Date Blanco Chavez MD PCP - General Family Medicine 04/08/18 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 Relationship Specialty Start Date End Date Blanco Chavez MD [address] [place] [phone] PCP - General Family Medicine 06/05/23 Marian Huitron RN [facility] [place] [address] Registered Nurse Family [facility] 01/31/24 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 Relationship Specialty Start Date End Date Blanco Chavez MD [address] [place] [address] PCP - General Family Medicine 06/05/23 Marian Huitron RN [address] [place] [address] Registered Nurse Family Medicine 01/31/24 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 Relationship Specialty Start Date End Date Solo Weinberg PCP - General Family Medicine 03/18/12 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 Relationship Specialty Start Date End Date Solo Weinberg PCP - General Family Medicine 03/18/12 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 Relationship Specialty Start Date End Date Blanco Chavez MD PCP - General Family Medicine 05/31/24 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 Relationship Specialty Start Date End Date Blanco Chavez MD PCP - General Family Medicine 05/31/24 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 Relationship Specialty Start Date End Date Blanco Chavez MD PCP - General Family Medicine 05/31/24 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 Relationship Specialty Start Date End Date Sloo Weinberg PCP - General Family Medicine 03/18/12 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 Relationship Specialty Start Date End Date Blanco Chavez MD [address] [place] [address] PCP - General Family Medicine 06/05/23 Marian Huitron RN [address] [place], [place] [address] [place] [address] Registered Nurse Family Medicine 01/31/24 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 Relationship Specialty Start Date End Date Blanco Chavez MD [address] [place] [address] PCP - General Family Medicine 06/05/23 Marian Huitron RN [address] [place], [place] [address] [place] [address] Registered Nurse Family Medicine 01/31/24 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 Relationship Specialty Start Date End Date Blanco Chavez MD PCP - General Family Medicine 05/31/24 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 Relationship Specialty Start Date End Date Blanco Chavez MD [address] [place] [address] PCP - General Family Medicine 06/05/23 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 Relationship Specialty Start Date End Date Blanco Chavez MD [address] [place] [address] PCP - [facility] Family [facility] 06/05/23 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 Relationship Specialty Start Date End Date Solo Weinberg PCP - [facility] Family Medicine 03/18/12 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 Relationship Specialty Start Date End Date Blanco Chavez MD [address] [place] [address] PCP - [facility] 06/05/23 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 Relationship Specialty Start Date End Date Blanco Chavez MD [address] [place] [address] PCP - General Family Medicine 06/05/23 Goals (unrecognized section and content) Goals may be documented in a n alternate section Source Comments (unrecognize d section and content) In the event this informatio n is protected by the Federal Confidentiality of Alcohol and Drug Abuse Patient Records regulations: The Federal rules restrict any use of the information to criminally investigate or prosecute any alcohol or drug abuse patient.[facility] AdministrationIn the event this information is protected by the Federal Confidentiality of Alcohol and Drug Abuse Patient Records regulations: The Federal rules restrict any use of the information to criminally investigate or prosecute any alcohol or drug abuse patient.[facility] AdministrationIn the event this information is protected by the Federal Confidentiality of Alcohol and Drug Abuse Patient Records regulations: The Federal rules restrict any use of the information to criminally investigate or prosecute any alcohol or drug abuse patient.[facility] AdministrationIn the event this information is protected by the Federal Confidentiality of Alcohol and Drug Abuse Patient Records regulations: The Federal rules restrict any use of the information to criminally investigate or prosecute any alcohol or drug abuse patient.[facility] AdministrationIn the event this information is protected by the Federal Confidentiality of Alcohol and Drug Abuse Patient Records regulations: The Federal rules restrict any use of the information to criminally investigate or prosecute any alcohol or drug abuse patient.[facility] AdministrationIn the event this information is protected by the Federal Confidentiality of Alcohol and Drug Abuse Patient Records regulations: The Federal rules restrict any use of the information to criminally investigate or prosecute any alcohol or drug abuse patient.[facility] AdministrationIn the event this information is protected by the Federal Confidentiality of Alcohol and Drug Abuse Patient Records regulations: The Federal rules restrict any use of the information to criminally investigate or prosecute any alcohol or drug abuse patient.[facility] AdministrationIn the event this information is protected by the Federal Confidentiality of Alcohol and Drug Abuse Patient Records regulations: The Federal rules restrict any use of the information to criminally investigate or prosecute any alcohol or drug abuse patient.[facility] AdministrationIn the event this information is protected by the Federal Confidentiality of Alcohol and Drug Abuse Patient Records regulations: The Federal rules restrict any use of the information to criminally investigate or prosecute any alcohol or drug abuse patient.[facility] AdministrationIn the event this information is protected by the Federal Confidentiality of Alcohol and Drug Abuse Patient Records regulations: The Federal rules restrict any use of the information to criminally investigate or prosecute any alcohol or drug abuse patient.[facility] AdministrationIn the event this information is protected by the Federal Confidentiality of Alcohol and Drug Abuse Patient Records regulations: The Federal rules restrict any use of the information to criminally investigate or prosecute any alcohol or drug abuse patient.[facility] AdministrationIn the event this information is protected by the Federal Confidentiality of Alcohol and Drug Abuse Patient Records regulations: The Federal rules restrict any use of the information to criminally investigate or prosecute any alcohol or drug abuse patient.[facility] AdministrationIn the event this information is protected by the Federal Confidentiality of Alcohol and Drug Abuse Patient Records regulations: The Federal rules restrict any use of the information to criminally investigate or prosecute any alcohol or drug abuse patient.[facility] AdministrationIn the event this information is protected by the Federal Confidentiality of Alcohol and Drug Abuse Patient Records regulations: The Federal rules restrict any use of the information to criminally investigate or prosecute any alcohol or drug abuse patient.[facility] AdministrationIn the event this information is protected by the Federal Confidentiality of Alcohol and Drug Abuse Patient Records regulations: The Federal rules restrict any use of the information to criminally investigate or prosecute any alcohol or drug abuse patient.[facility] FOR RECORDS PERTAINING TO PATIENTS WHO ARE [...] BE BASED ON THE PRIMARY CLINICAL RECORDS. [facility]. provides no warranty or guarantee of the accuracy or completeness of information in this document.
[2025-01-09 10:09] LABS: Age Gdln ACOG Testing Note (.); IGP, Aptima HPV, rfx 16/18,45 Note (.)
== END 2025-01-07 14:43 | disposition home or self-care (01) ==
LOC: LAB 14:42
PROVIDERS: PCP Family Medicine; Visit Provider Obstetrics & Gynecology
DX: Z01.419 Encounter for gynecological examination (general) (routine) without abnormal findings (principal)
CPT/HCPCS: 87624; 88175